=== PATIENT | female | born 1965 | race Hispanic/Latino ===

== ENCOUNTER 2016-09-28 14:55 | Inpatient (IN) | payer MEDICAID ==
--- NOTE | 2016-09-28 15:40 | ED PDOC ---
Arrival/HPI - General Chief Complaint: Anxiety Time Seen by Provider: 09/28/16 15:19 Historian: Patient - History of Present Illness Narrative History of Present Illness (Text): 09/28/16 15:37 51 year old female with a past medical history that includes anxiety presents to the emergency department because she feels anxious and has had decreased sleep due to depression. Denies suicidal ideation or homicidal ideation. Patient is asking to speak with a PES counselor. Time/Duration: < week Symptom Onset: Gradual Symptom Course: Unchanged Modifying Factors (Text): None Associated Symptoms (Text): None Past Medical History - Provider Review Nursing Documentation Reviewed: Yes - Infectious Disease Hx of Infectious Diseases: None - Tetanus Immunization Tetanus Immunization: Unknown - Reproductive Menopause: No - Past Medical History Past Medical History: No Previous - Cardiac Hx Cardiac Disorders: Yes Hx Heart Murmur: Yes Hx Hypertension: Yes - Pulmonary Hx Respiratory Disorders: Yes Hx Pneumonia: Yes Hx Tuberculosis: No - Neurological Hx Neurological Disorder: Yes HX Cerebrovascular Accident: No Hx Seizures: Yes - HEENT Hx HEENT Disorder: No - Renal Hx Renal Disorder: No - Endocrine/Metabolic Hx Endocrine Disorders: No - Hematological/Oncological Hx Blood Disorders: No Hx Cancer: No - Integumentary Hx Dermatological Disorder: No - Musculoskeletal/Rheumatological Hx Falls: Yes - Gastrointestinal Hx Gastrointestinal Disorders: Yes Hx Gastroesophageal Reflux: Yes Other/Comment: Gastroparesis. Gastric ulcer removed - Genitourinary/Gynecological Hx Genitourinary Disorders: No Hx Sexually Transmitted Diseases: No - Psychiatric Hx Psychophysiologic Disorder: Yes Hx Anxiety: Yes Hx Depression: Yes Hx Physical Abuse: No Hx Sexual Abuse: No Hx Substance Use: No - Surgical History Hx Cholecystectomy: Yes Hx Gastric Bypass Surgery: Yes (2013) - Anesthesia Hx Anesthesia: Yes Hx Anesthesia Reactions: No Hx Malignant Hyperthermia: No - Suicidal Assessment Feels Threatened In Home Enviroment: No Family/Social History - Physician Review Nursing Documentation Reviewed: Yes Family/Social History: Unknown Family HX Smoking Status: Former Smoker Hx Alcohol Use: No Hx Substance Use: No Hx Substance Use Treatment: No Allergies/Home Meds Allergies/Adverse Reactions: Allergies Penicillins Allergy (Intermediate, Verified 09/28/16 15:03) HIVES naproxen [From Naprosyn] Allergy (Verified 09/28/16 15:03) NAUSEA compazine Allergy (Intermediate, Uncoded 09/20/16 09:20) muscle stiffening Home Medications: Home Meds Medication Instructions Recorded Confirmed levETIRAcetam [Keppra] 500 mg PO BID 03/11/16 09/28/16 ALPRAZolam [Xanax] 1 mg PO QID 07/15/16 09/28/16 HYDROmorphone [Dilaudid] 2 mg PO Q4 PRN 09/09/16 09/28/16 Acetaminophen/Butalbital/Caf 1 tab PO PRN PRN 09/28/16 09/28/16 [Fioricet] Mirtazapine [Remeron] 30 mg PO HS 09/28/16 09/28/16 QUEtiapine [SEROquel] 25 mg PO BID 09/28/16 09/28/16 Review of Systems - Physician Review All systems were reviewed & negative as marked: Yes Physical Exam - Physical Exam Narrative Physical Exam (Text): - Review of Systems Constitutional: Normal. absent: Fatigue, Weight Change, Fevers Eyes: Normal ENT: Normal Respiratory: Normal absent: SOB, Cough, Sputum Cardiovascular: Normal absent: Chest pain, Palpitations, Syncope Gastrointestinal: Normal absent: Abdominal pain, Diarrhea, Nausea, Vomiting Genitourinary: Normal. absent: Dysuria, Frequency, Hematuria Musculoskeletal: Normal. absent: Arthralgias, Back Pain, Neck Pain Skin: Normal Neurological: Normal absent: Focal Weakness Endocrine: Normal Hemo/Lymphatic: Normal Psychiatric: Anxious, Depressed, Decreased Sleep absent: Suicidal ideation, Homicidal ideation - Physical exam Patient appears age appropriate, speaking full sentences without difficulty - Systems Exam Head: Present: Atraumatic, Normocephalic Pupils: Present: PERRL Extraocular Muscles: Present: EOMI Conjunctiva: Present: Normal Mouth: Present: Moist Mucous Membranes Neck: Present: Normal Range of Motion. No: MIDLINE TENDERNESS, Paraspinal Tenderness Respiratory/Chest: Present: Clear to Auscultation, Good Air Exchange. No: Respiratory Distress, Accessory Muscle Use, Tachypneic Cardiovascular: Present: Regular Rate and Rhythm, Normal S1, S2, Peripheral Pulses Present. No: Murmurs Abdomen: Present: Normal Bowel Sounds, No: Tenderness, Peritoneal Signs, Rebound, Guarding, Distention Back: Present: Normal Inspection. No: Midline Tenderness, Paraspinal Tenderness Upper Extremity: Present: Normal Inspection. No: Cyanosis, Edema Lower Extremity: Present: Normal Inspection. No: Edema Neurological: Present: GCS=15, Speech Normal, cranial nerves II through XII fully intact with no cerebellar abnormality, neuro-sensory fully intact. No focal neurological deficits. Skin: Present: Warm, Dry, Normal Color. No: Rashes Lymphatic: Present: OX3, NI, NC Psychiatric: Present: Alert, Oriented x 3, Normal Insight, Normal Concentration Vital Signs Reviewed: Yes Vital Signs Temp Pulse Resp BP Pulse Ox 09/28/16 17:47 89 18 116/68 99 09/28/16 16:29 98.0 F 96 H 18 118/71 98 09/28/16 14:59 98.2 F 102 H 18 120/75 97 Temperature: Afebrile Blood Pressure: Normal Pulse: Tachycardic Respiratory Rate: Normal Appearance: Positive for: Well-Appearing, Non-Toxic, Comfortable Pain Distress: None Mental Status: Positive for: Alert and Oriented X 3 Medical Decision Making ED Course and Treatment: Impression: 51 year old female with a past medical history that includes anxiety presents to the emergency department because she feels anxious and has had decreased sleep due to depression. On physical exam, patient has no acute findings. Differential Diagnosis include but are not limited to: Anxiety Plan: -- PES evaluation -- EKG, Chest X-ray, Labs -- Reassess and disposition Prior Visits: Notes and results from previous visits were reviewed. Patient last seen in the ED on 09/26/16 for abdominal pain and discharged home. EKG: Ordered, reviewed, and independently interpreted the EKG. Rate : 80 BPM Rhythm : NSR Interpretation : No ST-segment elevations, normal intervals. Interpreted by me. Comparison : No changes from previous EKG. Progress Notes: 09/28/16 20:17 patient in no distress seen and evaluated by Troy from PES, states to admit to behavioral health to Dr. Guerra's service pt aware of and agrees with plan denies suicidal or homicidal ideations - Lab Interpretations Lab Results: 09/28/16 17:35 09/28/16 17:35 Lab Results 09/28/16 17:40: Urine Opiates Screen Negative, Urine Methadone Screen Negative, Ur Barbiturates Screen Positive H, Ur Phencyclidine Scrn Negative, Ur Amphetamines Screen Negative, U Benzodiazepines Scrn Positive H, U Oth Cocaine Metabols Negative, U Cannabinoids Screen Negative 09/28/16 17:35: WBC 5.6 D, RBC 3.51, Hgb 9.4 L, Hct 29.4 L, MCV 83.8, MCH 26.8 , MCHC 32.0, RDW 17.0 H, Plt Count 271, MPV 9.8, Gran % 42.4 L, Lymph % (Auto) 48.4 H, [place] % (Auto) 5.0, Eos % (Auto) 3.8, Baso % (Auto) 0.4, Gran # 2.37, Lymph # 2.7, [place] # 0.3, Eos # 0.2, Baso # 0.02, Sodium 142, Potassium 4.3, Chloride 109 H, Carbon Dioxide 25, Anion Gap 12, BUN 21, Creatinine 1.0, Est GFR ( Amer) > 60, Est GFR (Non-Af Amer) 58, Random Glucose 92, Calcium 9.3, Total Bilirubin 0.3, AST 20, ALT 16, Alkaline Phosphatase 66, Total Protein 6.6, Albumin 3.7, Globulin 2.9, Albumin/Globulin Ratio 1.3, Salicylates 6, Acetaminophen < 10.0 L, Alcohol, Quantitative < 10 09/28/16 16:07: Urine Color Yellow, Urine Appearance Cloudy, Urine pH 6.0, Ur Specific [place] 1.010, Urine Protein Negative, Urine Glucose (UA) Negative, Urine Ketones Negative, Urine Blood Negative, Urine Nitrate Negative, Urine Bilirubin Negative, Urine Urobilinogen 0.2, Ur Leukocyte Esterase Moderate H, Urine RBC 0 - 2, Urine WBC 2 - 5, Ur Epithelial Cells 1 - 3, Urine Bacteria Occ - RAD Interpretation Radiology Orders: 09/28/16 15:36 CHEST PORTABLE [RAD] Stat - EKG Interpretation Interpreted by ED Physician: Yes Type: 12 lead EKG - Scribe Statement The provider has reviewed the documentation as recorded by the Jose Antonio Hawley Provider Scribe Attestation: All medical record entries made by the Virgieibcal were at my direction and personally dictated by me. I have reviewed the chart and agree that the record accurately reflects my personal performance of the history, physical exam, medical decision making, and the department course for this patient. I have also personally directed, reviewed, and agree with the discharge instructions and disposition. Disposition/Present on Arrival - Present on Arrival Any Indicators Present on Arrival: No History of DVT/PE: Yes History of Uncontrolled Diabetes: No Urinary Catheter: No History of Decub. Ulcer: No History Surgical Site Infection Following: None - Disposition Have Diagnosis and Disposition been Completed?: Yes Diagnosis: Anxiety Disposition: HOSPITALIZED Disposition Time: 20:19 Patient Plan: Admission Patient Problems: Current Active Problems Problem Status Diagnosed Colitis Acute Elevated LFTs Acute Ileus Acute Condition: STABLE
[2016-09-28 16:14] LABS: URINE BILIRUBIN NEGATIVE (NEGATIVE); URINE BLOOD NEGATIVE (NEGATIVE); URINE GLUCOSE (UA) NEGATIVE (NEGATIVE); URINE KETONE NEGATIVE (NEGATIVE); URINE LEUKOCYTE ESTERASE MODERATE Leu/uL (NEGATIVE); URINE PROTEIN NEGATIVE mg/dL (<30 mg/dL); URINE UROBILINOGEN 0.2 E.U./dL (<1 E.U./dL)
[2016-09-28 16:16] LABS: URINE APPEARANCE CLOUDY (CLEAR); URINE COLOR YELLOW (YELLOW)
[2016-09-28 16:47] LABS: URINE RBC 0 - 2 /hpf (0-2)
[2016-09-28 16:48] LABS: URINE BACTERIA OCC (NEG)
[2016-09-28 17:46] LABS: ADD MANUAL DIFF? NO
[2016-09-28 17:49] VITALS: BMI 22.1
[2016-09-28 17:51] LABS: BASO # 0.02 K/mm3 (0.0-2.0); BASO % 0.4 % (0.0-3.0); EOS # 0.2 (0.0-0.7); EOS % 3.8 % (1.5-5.0); GRAN # 2.37 (1.4-6.5); GRAN % 42.4 % (50.0-68.0); HEMATOCRIT 29.4 % (36.0-48.0); LYMPH # 2.7 (1.2-3.4); LYMPH % 48.4 % (22.0-35.0); MEAN CELL VOLUME 83.8 fL (80.0-105.0); MEAN CORPUSCULAR HEMOGLOBIN 26.8 pg (25.0-35.0); MEAN PLATELET VOLUME 9.8 fl (7.0-11.0); MONO # 0.3 (0.1-0.6); PLATELET COUNT 271 10^3/uL (120.0-450.0); WHITE BLOOD COUNT 5.6 10^3/ul (4.5-11.0)
[2016-09-28 18:02] LABS: ALB/GLOB RATIO 1.3 (1.1-1.8); ALKALINE PHOSPHATASE 66 U/L (38-133); ALT/SGPT 16 U/L (7-56); AST/SGOT 20 U/L (15-39); BILIRUBIN,TOTAL 0.3 mg/dL (0.2-1.3); BLOOD UREA NITROGEN 21 mg/dL (7-21); CALCIUM 9.3 mg/dL (8.4-10.5); CARBON DIOXIDE 25 mmol/L (21-33); CHLORIDE 109 mmol/L (98-107); GFR AFRICAN-AMERICAN > 60; GLUCOSE,RANDOM 92 mg/dL (70-110); POTASSIUM 4.3 mmol/L (3.6-5.0); SODIUM 142 mmol/L (132-148); TOTAL PROTEIN 6.6 g/dL (5.8-8.3)
[2016-09-28 21:43] VITALS: O2SAT 99
[2016-09-28] MEDS ORDERED: Magnesium Hydroxide Susp 30 ml UD PO PRN (22:34)
[2016-09-28] MEDS ORDERED: Alum-Mag Hydrox-Simethicone Susp (30 mL) PO PRN (22:34)
[2016-09-28] MEDS ORDERED: Oxycodone/Acetaminophen 5/325 mg Tab PO ONE (22:34)
[2016-09-29 06:55] LABS: CHOLESTEROL 188 mg/dL (130-200); GLUCOSE,FASTING 98 mg/dL (65-110)
--- NOTE | 2016-09-29 07:36 | RAD ---
PROCEDURE: Chest portable HISTORY: med clearence COMPARISON: 09/20/2016. TECHNIQUE: Technique: Single view portable semi erect @ 16:30. FINDINGS: No active pulmonary disease. No pulmonary nodules, masses or infiltrates. No evidence of acute, significant cardiovascular disease. No significant pleural, osseous or subdiaphragmatic abnormalities. Stable thoracolumbar scoliosis IMPRESSION: No active disease. No acute/significant interval changes.
--- NOTE | 2016-09-29 12:09 | CARD ---
APPROVED REPORT EKG Measurement Heart [id number] <Conclusion> Normal sinus rhythm with short [place]. No change
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
[2016-09-29] MEDS ORDERED: Apap-Butalbital-Caffeine 325-50-40mg Tab PO PRN (13:54)
[2016-09-29] MEDS: Apap-Butalbital-Caffeine 325-50-40mg Tab PO PRN ×2 (14:24→21:01)
--- NOTE | 2016-09-29 15:21 | CP.PCM.HP ---
<Jose Fowler - Last Filed: 09/29/16 15:27> History of Present Illness - History of Present Illness History of Present Illness: 51 y/o F with PMH of seizures, chronic back pain, anxiety, depression, GERD, migraines, PUD, and DVT presents to the hospital on 09/28/16 for anxiety and depression. Pt stated she was not feeling well and has been stressed out at home. She reports having a difficult time dealing with her daughter at home. She states her family members are also providing stress to her by saying things they know will upset her. Pt also mentions that she has chronic back pain and has not had pain medication for the past 2 weeks as she has run out. Pt sees Dr. Soriano for pain management and PMD Dr. Buckner. Pt takes percocet at home for back pain and fioricet for headaches. Pt was recently in the admitted to the hospital for intractable vomiting and discharged on 09/22/16. Pt admits to having 2 bowel movements per day. Pt denies CP, SOB, N/V/D, fevers, chills. PMH: seizures, chronic back pain, anxiety, depression, GERD, migraines, PUD, and DVT Surgical Hx: Vagotomy, meniscus repair Social Hx: Denies alcohol, tobacco, or illicit drug use Allergies: Penicillin, naproxen Medications: See MAR Present on Admission - Present on Admission Any Indicators Present on Admission: No Review of Systems - Review of Systems Review of Systems: As per HPI. Past Patient History - Infectious Disease Hx of Infectious Diseases: None - Tetanus Immunizations Tetanus Immunization: Unknown - Past Medical History & Family History Past Medical History?: Yes - Past Social History Smoking Status: Former Smoker - CARDIAC Hx Cardiac Disorders: Yes Hx Heart Murmur: Yes Hx Hypertension: Yes - PULMONARY Hx Respiratory Disorders: Yes Hx Pneumonia: Yes Hx Tuberculosis: No - NEUROLOGICAL Hx Neurological Disorder: Yes HX Cerebrovascular Accident: No Hx Seizures: Yes - HEENT Hx HEENT Problems: No - RENAL Hx Chronic Kidney Disease: No - ENDOCRINE/METABOLIC Hx Endocrine Disorders: No - HEMATOLOGICAL/ONCOLOGICAL Hx Blood Disorders: No Hx Cancer: No - INTEGUMENTARY Hx Dermatological Problems: No - MUSCULOSKELETAL/RHEUMATOLOGICAL Hx Falls: Yes - GASTROINTESTINAL Hx Gastrointestinal Disorders: Yes Hx Gastroesophageal Reflux: Yes Other/Comment: Gastroparesis. Gastric ulcer removed - GENITOURINARY/GYNECOLOGICAL Hx Genitourinary Disorders: No Hx Sexually Transmitted Disorders: No - PSYCHIATRIC Hx Psychophysiologic Disorder: Yes Hx Anxiety: Yes Hx Depression: Yes Hx Physical Abuse: No Hx Sexual Abuse: No Hx Substance Use: No - SURGICAL HISTORY Hx Cholecystectomy: Yes Hx Gastric Bypass Surgery: Yes (2013) - ANESTHESIA Hx Anesthesia: Yes Hx Anesthesia Reactions: No Hx Malignant Hyperthermia: No Meds Allergies/Adverse Reactions: Allergies Allergy/AdvReac Type Severity Reaction Status Date / Time Penicillins Allergy Intermediate HIVES Verified 09/29/16 00:08 naproxen [From Naprosyn] Allergy NAUSEA Verified 09/29/16 00:08 compazine Allergy Intermediate muscle Uncoded 09/29/16 00:08 stiffening Physical Exam - Constitutional Appears: Well, No Acute Distress - Head Exam Head Exam: ATRAUMATIC, NORMAL INSPECTION, NORMOCEPHALIC - Eye Exam Eye Exam: EOMI, Normal appearance, PERRL - ENT Exam ENT Exam: Mucous Membranes Moist, Normal Exam - Neck Exam Neck exam: Positive for: Normal Inspection. Negative for: Lymphadenopathy - Respiratory Exam Respiratory Exam: Clear to Auscultation Bilateral, NORMAL BREATHING PATTERN. absent: Rhonchi, Wheezes - Cardiovascular Exam Cardiovascular Exam: RRR, +S1, +S2 - GI/Abdominal Exam GI & Abdominal Exam: Normal Bowel Sounds, Soft. absent: Tenderness - Extremities Exam Extremities exam: Positive for: normal inspection. Negative for: calf tenderness, pedal edema - Neurological Exam Neurological exam: Alert, CN II-XII Intact, Oriented x3 - Psychiatric Exam Psychiatric exam: Normal Affect, Normal Mood - Skin Skin Exam: Intact, Normal Color, Warm Results - Vital Signs Recent Vital Signs: Last Vital Signs Temp 97.9 F 09/29/16 09:59 Pulse 79 09/29/16 09:59 Resp 20 09/29/16 09:59 BP 111/60 09/29/16 09:59 Pulse Ox 99 09/28/16 22:42 - Labs Result Diagrams: 09/28/16 17:35 09/28/16 17:35 Labs: Laboratory Results - last 24 hr 09/29/16 05:30 Fasting Glucose 98 Triglycerides 187 H Cholesterol 188 LDL Cholesterol Direct 72 HDL Cholesterol 78 H TSH 3rd Generation 0.86 Assessment & Plan - Assessment and Plan (Free Text) Plan: 51 y/o F with PMH of seizures, chronic back pain, anxiety, depression, GERD, migraines, PUD, and DVT presents to the hospital on 09/28/16 for anxiety and depression. Pt admitted to psychiatry unit for anxiety and depression. Pt will continue to stay in the psychiatry for further care. Medically, patient does not have any abdominal pain or intractable pain that she was recently admitted for. Pt does complain of chronic headaches and abdominal pain in which she takes fioricet and percocet. These medications will be added to patients current medical regimen. UA showed moderate leukocyte esterase. Will await urine culture before starting abx as pt is asymptomatic. 1. Anxiety/Depression - As per psychiatry - Continue current medical regimen 2. Chronic back pain - Percocet added - Continue milk of magnesia for constipation, likely secondary to chronic percocet use. 3. Headaches - Fioricet added - Tylenol PRN 4. GERD/PUD - Protonix added 5. Seizure disorder - Continue Keppra 6. Possible UTI - Follow cultures Seen, reviewed, and discussed with attending. Janeth, PGY-1 <Darrell Gatica - Last Filed: 09/29/16 22:46> Results - Vital Signs Recent Vital Signs: Last Vital Signs Temp 97.9 F 09/29/16 09:59 Pulse 89 09/29/16 16:00 Resp 20 09/29/16 09:59 BP 123/89 09/29/16 16:00 Pulse Ox 99 09/28/16 22:42 - Labs Result Diagrams: 09/28/16 17:35 09/28/16 17:35 Labs: Laboratory Results - last 24 hr 09/29/16 09/29/16 05:30 07:43 Fasting Glucose 98 Triglycerides 187 H Cholesterol 188 LDL Cholesterol Direct 72 HDL Cholesterol 78 H TSH 3rd Generation 0.86 RPR Nonreactive Attending/Attestation - Attestation I have personally seen and examined this patient.: Yes I have fully participated in the care of the patient.: Yes I have reviewed all pertinent clinical information: Yes Notes (Text): 09/29/16 22:36 51 year old female with multiple medical problems including anxiety, depression , gastroparesis and reported back pain on chronic opiates who presented with anxiety and depression. Medical consultation was requested for medical evaluation. Patient's pmd is Dr. Buckner. I called his service but was not able to get in touch with pmd or fruit grader operator. Patient seen and examined in the psychiatric [facility]. She appears comfortable ambulating in the hallways. She is concerned about getting fioricet for her migraines and percocet for her chronic back pain. She reports she gets percocet from her pain management physician Dr. Soriano. When she ran out she was unable to make follow up appointment because of personal problems at home. Since then she reports she was admitted twice in hospital for abdominal pain / constipation / gastroparesis. She also reports being seen in the ER several times since as well. At this time will resume her fioricet as prescribed by her pmd. Percocet prn is ordered however at same time patient is counselled on limited narcotic use. Continue with MOM or miralax prn for constipation. Management for anxiety/depression as per psychiatry. +UA noted however Ucx is negative and patient is asymptomatic. Can monitor off abx. We will sign off at this time. Please re-consult as needed. Please should follow up closely with pmd and pain management doctor after discharge. Darrell Gatica MD Hospitalist.
[2016-09-29] MEDS: Oxycodone/Acetaminophen 5/325 mg Tab PO PRN (16:46)
[2016-09-30] MEDS: Oxycodone/Acetaminophen 5/325 mg Tab PO PRN ×2 (09:25→17:53)
[2016-09-30] MEDS: Apap-Butalbital-Caffeine 325-50-40mg Tab PO PRN ×3 (09:27→21:08)
--- NOTE | 2016-09-30 12:28 | PCM.PYCHPN ---
Psychiatric Progress Note - Psychiatric Progress Note Patient seen today, length of contact: 30 minutes Patient Chief Complaint: "I lept well, and it is achievement" Problems Identified/Issues Discussed: Suicide/ homicide prevention, past psychiatric h/o, current psychiatric symptoms , medical problems, risk/benefits and alternatives of medications, medications compliance, coping strategies, substance abuse h/o, relapse prevention, importance of follow up with psychiatrist and therapist, discharge plan. Medical Problems: seizures, chronic back pain, anxiety, depression, GERD, migraines, PUD, and DVT Vagotomy, meniscus repair Diagnostic Results: 09/28/16 17:35 09/28/16 17:35 Lab Results 09/29/16 07:43: RPR Nonreactive 09/29/16 05:30: Fasting Glucose 98, Triglycerides 187 H, Cholesterol 188, LDL Cholesterol Direct 72, HDL Cholesterol 78 H, TSH 3rd Generation 0.86 09/28/16 17:40: Urine Opiates Screen Negative, Urine Methadone Screen Negative, Ur Barbiturates Screen Positive H, Ur Phencyclidine Scrn Negative, Ur Amphetamines Screen Negative, U Benzodiazepines Scrn Positive H, U Oth Cocaine Metabols Negative, U Cannabinoids Screen Negative 09/28/16 17:35: WBC 5.6 D, RBC 3.51, Hgb 9.4 L, Hct 29.4 L, MCV 83.8, MCH 26.8 , MCHC 32.0, RDW 17.0 H, Plt Count 271, MPV 9.8, Gran % 42.4 L, Lymph % (Auto) 48.4 H, Williamson % (Auto) 5.0, Eos % (Auto) 3.8, Baso % (Auto) 0.4, Gran # 2.37, Lymph # 2.7, Williamson # 0.3, Eos # 0.2, Baso # 0.02, Sodium 142, Potassium 4.3, Chloride 109 H, Carbon Dioxide 25, Anion Gap 12, BUN 21, Creatinine 1.0, Est GFR ( Amer) > 60, Est GFR (Non-Af Amer) 58, Random Glucose 92, Calcium 9.3, Total Bilirubin 0.3, AST 20, ALT 16, Alkaline Phosphatase 66, Total Protein 6.6, Albumin 3.7, Globulin 2.9, Albumin/Globulin Ratio 1.3, Salicylates 6, Acetaminophen < 10.0 L, Alcohol, Quantitative < 10 09/28/16 16:07: Urine Color Yellow, Urine Appearance Cloudy, Urine pH 6.0, Ur Specific [place] 1.010, Urine Protein Negative, Urine Glucose (UA) Negative, Urine Ketones Negative, Urine Blood Negative, Urine Nitrate Negative, Urine Bilirubin Negative, Urine Urobilinogen 0.2, Ur Leukocyte Esterase Moderate H, Urine RBC 0 - 2, Urine WBC 2 - 5, Ur Epithelial Cells 1 - 3, Urine Bacteria Occ Vital Signs Temp Pulse Resp BP Pulse Ox 09/30/16 06:00 98.6 F 66 20 127/84 09/29/16 16:00 89 123/89 09/29/16 09:59 97.9 F 79 20 111/60 09/28/16 22:42 98.0 F 109 H 20 118/84 99 09/28/16 21:42 98 F 76 19 130/75 99 09/28/16 20:46 104 H 18 144/78 98 09/28/16 17:47 89 18 116/68 99 09/28/16 16:29 98.0 F 96 H 18 118/71 98 09/28/16 14:59 98.2 F 102 H 18 120/75 97 DSM 5 Symptoms Update: shortly patient is 51 yo Female, self reported h/o anxiety and depression, no previous psychiatric admissions, multiple medical problems, chronic back pain, pt was seen last week on the medical floor, this publications writer offered admission, but pt needed to be d/c because of the family issues, pt came back to the ED looking for admission because pt was depressed, anxious, was not able to function, not sleeping, racing thoughts, pt also does not have outpatient psychiatrist, needs medications to be adjusted. Pt was seen today with treatment team. Patient presented to have good personal hygiene, good ADLs. Patient reported that she slept better and "it is achievement", patient reported that at present moment she feels depressed and she was asking about Effexor and when it will be started, when this publications writer explained patient that she is on Paxil tapering dose patient said that she was not compliant with the Paxil at home. This publications writer would like to emphasize the fact that patient said that she was compliant with that medication. Patient apologized 'I should have tell you about this" and she wants to discontinue Paxil and start Effexor as soon as possible. Which will be done today. patient educated in future references she needs to let this publications writer know about compliance of the medications , because increased dose of medication potentially could give side effects. Patient verbalized understanding. Patient reported that she feels depressed and hopeless, patient reported thather anxiety is very bad patient reported that she needs to be on benzodiazepines because if she feels anxious she cannot eat. patient denied hearing voices denied seeing things. Patient does not present to be psychotic. Patient tolerates medications well, no side effects observed or reported, aims 0 , no EPS. As per nursing staff patient is compliant with the medication but patient has medication medication seeking behavior, no agitation or aggression no behavioral issues. DSM 5 Diagnosis: rule out major depressive disorder r/o bipolar spectrum disorder r/o ADIS r/o PTSD r/o mood disorder and anxiety disorder due to C r/o addiction to pain meds and benzodiazepines Medication Change: Yes (Effexor started, Klonopin increased) Medical Record Reviewed: Yes Consults ordered or reviewed: edical consult appreciated Neurology consult will be called, patient has history of seizure disorder patient is on Keppra, will ask advice to change Keppra for Depakote Mental Status Examination - Cognitive Function Orientation: Person, Place, Situation, Time Memory: Intact Attention: Poor Concentration: Poor Association: WNL Fund of Knowledge: WNL - Mood Mood: Depressed, Anxious - Affect Affect: Flat - Speech Speech: Appropriate - Formal Thought Process Formal Thought Process: No Impairment, Hallucinations (denied today) - Suicidal Ideation Suicidal Ideation: No - Homicidal Ideation Homicidal Ideation: No Goal/Treatment Plan - Goal/Treatment Plan Need for Continued Stay: Remain at risks for inpatient hospitalization, Severe depression anxiety, Discharge may exacerbated symptoms, Severe functional impairment Progress Toward Problem(s) and Goals/Treatment Plan: Milieu/structure/supportive therapy will continue levETIRAcetam for now will call neurology consult in order to ask advise about depakote as a mood stabilizer patient is on Keppra at times it could give hostility and irritability. pt also has h/o headaches Depakote could be a good choice for migraine headache prophylaxis ALPRAZolam will be d/c, addictive potential (pt was on 1mg po qid) klonopin 1.5mg po tid for anxiety for now paxil will be discontinued Pain medication as per medical team Effexor will be started 75 mg twice a day for now Remeron was increased to 45mg po hs for MDD seroquel will be given 50mg hs (pt was on 25mg po bid) as a mood stabilization SW evaluation Family involvement will monitor closely Medical team consultation Estimated Date of D/C: 10/05/16 (we'll monitor closely)
--- NOTE | 2016-09-30 19:24 | CON ---
DATE: 09/30/2016 HISTORY OF PRESENT ILLNESS: This is a 51-year-old female with past medical history of anxiety, depre ssion, migraine headaches, seizure. The patient has been stressed out at home and came to the hospit or for further workup. PAST MEDICAL HISTORY: Seizure, chronic back pain, anxiety, depression, GERD and migraines. SOCIAL HISTORY: Does not smoke. Does not drink. ALLERGIES: PENICILLIN AND NAPROXEN. PHYSICAL EXAMINATION: HEENT: Normocephalic, atraumatic. NECK: Supple. NEUROLOGIC: Awake, alert, oriented x 3. No aphasia. Cranial nerves II through XII were tested. Pu pils reactive. EOM intact. Visual flor full. No facial asymmetry. Tongue midline. Spontaneous movement of the extremities noted. Deep tendon reflexes 1+. Both plantars are downgoing. Sensory a ppears intact. Cerebellar, gait was normal. IMPRESSION: Multiple medical problems, presented with a headache, migraine type. PLAN: The patient is on Fioricet. CAT scan of the head. We will do further management after the res ults of above tests. Maldonado Montes MD cc: [id number] TT: 09/30/2016 19:23:50 Confirmation # [id number] Dictation # [id number] brisa
[2016-10-01] MEDS: Oxycodone/Acetaminophen 5/325 mg Tab PO PRN ×2 (03:51→12:46)
[2016-10-01] MEDS: Apap-Butalbital-Caffeine 325-50-40mg Tab PO PRN ×4 (03:51→21:05)
--- NOTE | 2016-10-01 17:40 | PCM.PYCHPN ---
Psychiatric Progress Note - Psychiatric Progress Note Patient seen today, length of contact: 30 minutes Patient Chief Complaint: "I am still anxious, I am worried about my daughter, my family" Problems Identified/Issues Discussed: Suicide/ homicide prevention, past psychiatric h/o, current psychiatric symptoms , medical problems, risk/benefits and alternatives of medications, medications compliance, coping strategies, substance abuse h/o, relapse prevention, importance of follow up with psychiatrist and therapist, discharge plan. Medical Problems: seizures, chronic back pain, anxiety, depression, GERD, migraines, PUD, and DVT Vagotomy, meniscus repair Diagnostic Results: 09/28/16 17:35 09/28/16 17:35 Lab Results 09/29/16 07:43: RPR Nonreactive 09/29/16 05:30: Fasting Glucose 98, Triglycerides 187 H, Cholesterol 188, LDL Cholesterol Direct 72, HDL Cholesterol 78 H, TSH 3rd Generation 0.86 09/28/16 17:40: Urine Opiates Screen Negative, Urine Methadone Screen Negative, Ur Barbiturates Screen Positive H, Ur Phencyclidine Scrn Negative, Ur Amphetamines Screen Negative, U Benzodiazepines Scrn Positive H, U Oth Cocaine Metabols Negative, U Cannabinoids Screen Negative 09/28/16 17:35: WBC 5.6 D, RBC 3.51, Hgb 9.4 L, Hct 29.4 L, MCV 83.8, MCH 26.8 , MCHC 32.0, RDW 17.0 H, Plt Count 271, MPV 9.8, Gran % 42.4 L, Lymph % (Auto) 48.4 H, Pratt % (Auto) 5.0, Eos % (Auto) 3.8, Baso % (Auto) 0.4, Gran # 2.37, Lymph # 2.7, Pratt # 0.3, Eos # 0.2, Baso # 0.02, Sodium 142, Potassium 4.3, Chloride 109 H, Carbon Dioxide 25, Anion Gap 12, BUN 21, Creatinine 1.0, Est GFR ( Amer) > 60, Est GFR (Non-Af Amer) 58, Random Glucose 92, Calcium 9.3, Total Bilirubin 0.3, AST 20, ALT 16, Alkaline Phosphatase 66, Total Protein 6.6, Albumin 3.7, Globulin 2.9, Albumin/Globulin Ratio 1.3, Salicylates 6, Acetaminophen < 10.0 L, Alcohol, Quantitative < 10 09/28/16 16:07: Urine Color Yellow, Urine Appearance Cloudy, Urine pH 6.0, Ur Specific [place] 1.010, Urine Protein Negative, Urine Glucose (UA) Negative, Urine Ketones Negative, Urine Blood Negative, Urine Nitrate Negative, Urine Bilirubin Negative, Urine Urobilinogen 0.2, Ur Leukocyte Esterase Moderate H, Urine RBC 0 - 2, Urine WBC 2 - 5, Ur Epithelial Cells 1 - 3, Urine Bacteria Occ Vital Signs Temp Pulse Resp BP Pulse Ox 09/30/16 06:00 98.6 F 66 20 127/84 09/29/16 16:00 89 123/89 09/29/16 09:59 97.9 F 79 20 111/60 09/28/16 22:42 98.0 F 109 H 20 118/84 99 09/28/16 21:42 98 F 76 19 130/75 99 09/28/16 20:46 104 H 18 144/78 98 09/28/16 17:47 89 18 116/68 99 09/28/16 16:29 98.0 F 96 H 18 118/71 98 09/28/16 14:59 98.2 F 102 H 18 120/75 97 DSM 5 Symptoms Update: shortly patient is 51 yo Female, self reported h/o anxiety and depression, no previous psychiatric admissions, multiple medical problems, chronic back pain, pt was seen last week on the medical floor, this magazine writer offered admission, but pt needed to be d/c because of the family issues, pt came back to the ED looking for admission because pt was depressed, anxious, was not able to function, not sleeping, racing thoughts, pt also does not have outpatient psychiatrist, needs medications to be adjusted. Pt was seen today with treatment team. Patient presented to have good personal hygiene, good ADLs. Patient reported that she slept better at the same time patient reported to feel anxious, and her anxiety is related to the problems at home. Patient reported that her daughter younger one has a lot of legal problems and she was mandated to go to the program. Substance abusers. Patient said that she feels anxious about her family, about her mother, she is anxious because "my brother always blaming me for everything". Patient reported that she feels depressed and hopeless. patient denied hearing voices denied seeing things. Patient does not present to be psychotic. Patient tolerates medications well, no side effects observed or reported, aims 0 , no EPS. As per nursing staff patient is compliant with the medication but patient has medication seeking behavior, no agitation or aggression no behavioral issues. DSM 5 Diagnosis: rule out major depressive disorder r/o bipolar spectrum disorder r/o ADIS r/o PTSD r/o mood disorder and anxiety disorder due to [facility] Medication Change: Yes (effexor increased, klonopin increased) Medical Record Reviewed: Yes Consults ordered or reviewed: edical consult appreciated Neurology consult will be called, patient has history of seizure disorder patient is on Keppra, will ask advice to change Keppra for Depakote Mental Status Examination - Cognitive Function Orientation: Person, Place, Situation, Time Memory: Intact Attention: Poor (somewhat better) Concentration: Poor Association: WNL Fund of Knowledge: WNL - Mood Mood: Depressed (somewhat better), Anxious - Affect Affect: Flat - Speech Speech: Appropriate - Formal Thought Process Formal Thought Process: No Impairment - Suicidal Ideation Suicidal Ideation: No - Homicidal Ideation Homicidal Ideation: No Goal/Treatment Plan - Goal/Treatment Plan Need for Continued Stay: Remain at risks for inpatient hospitalization, Severe depression anxiety, Discharge may exacerbated symptoms, Severe functional impairment Progress Toward Problem(s) and Goals/Treatment Plan: Milieu/structure/supportive therapy will continue levETIRAcetam for now neurology consult appreciated, CT of the head ordered, in order to ask advise about depakote as a mood stabilizer patient is on Keppra at times it could give hostility and irritability. pt also has h/o headaches Depakote could be a good choice for migraine headache prophylaxis klonopin 2mg po tid for anxiety for now Pain medication as per medical team Effexor ER 150mg po daily for depression and anxiety for now Remeron 45mg po hs for MDD seroquel 50mg hs (pt was on 25mg po bid) as a mood stabilization SW evaluation Family involvement will monitor closely Medical team consultation Estimated Date of D/C: 10/05/16 (we'll monitor closely)
--- NOTE | 2016-10-01 19:22 | CP.PCM.PN ---
Subjective - Date & Time of Evaluation Date of Evaluation: 10/01/16 Time of Evaluation: 19:19 - Subjective Subjective: PGY-[address] Shook [facility] 7:15pm pt was seen laying on the floor with head on her roommate's lap. Pt states that she had radiating pain from R hip to leg, which is chronic, 8/10 sharp. After dinner, she ambulates to RN to request pain meds. She ambulate to the hallway in front of the nursing stating. Her R leg "gave out" and fell onto the floor with R hip landing first. Her pain aggravated to 10/10. No shaking, no dizziness , no palpitation, B&B incontinent. PMH: seizures, chronic back pain, scoliosis, anxiety, depression, GERD, migraines, PUD, and DVT Surgical Hx: Vagotomy, meniscus repair Social Hx: Denies alcohol, tobacco, or illicit drug use Allergies: Penicillin, naproxen T 97.3 P 88 R 18 BP 105/65 O2 99 RA Blood sugar 104 Objective - Vital Signs/Intake and Output Vital Signs (last 24 hours): Temp Pulse Resp BP Pulse Ox 98.6 F 87 20 114/76 99 09/30/16 06:00 10/01/16 16:00 09/30/16 06:00 10/01/16 16:00 09/28/16 22:42 - Medications Medications: Current Medications Acetaminophen (Tylenol 325mg Tab) 650 mg PO Q4H PRN PRN Reason: Pain, moderate (4-7) Last Admin: 10/01/16 18:25 Dose: 650 mg Acetaminophen/Butalbital/Caffeine (Fioricet) 1 tab PO Q6H PRN PRN Reason: Headache Last Admin: 10/01/16 16:04 Dose: 1 tab Al Hydrox/Mg Hydrox/Simethicone (Maalox Plus 30 Ml) 30 ml PO DAILY PRN PRN Reason: Indigestion / Heartburn Clonazepam (Klonopin) 2 mg PO [facility]HS [facility] PRN Reason: Protocol Clonazepam (Klonopin) 2 mg PO 1600 [facility] PRN Reason: Protocol Last Admin: 10/01/16 16:01 Dose: 2 mg Hydroxyzine Pamoate (Vistaril) 50 mg PO Q8 PRN; Protocol PRN Reason: Anxiety Last Admin: 10/01/16 18:31 Dose: 50 mg Levetiracetam (Keppra) 500 mg PO BID [facility] Last Admin: 10/01/16 16:02 Dose: 500 mg Magnesium Hydroxide (Milk Of Magnesia) 30 ml PO DAILY PRN PRN Reason: Constipation Mirtazapine (Remeron) 45 mg PO HS [facility] Last Admin: 09/30/16 21:08 Dose: 45 mg Oxycodone/Acetaminophen (Percocet 5/325 Mg Tab) 1 tab PO Q8H PRN PRN Reason: Pain, severe (8-10) Stop: 10/02/16 14:04 Last Admin: 10/01/16 12:46 Dose: 1 tab Quetiapine Fumarate (Seroquel) 50 mg PO [facility] PRN Reason: Protocol Last Admin: 09/30/16 21:09 Dose: 50 mg Venlafaxine HCl (Effexor Xr) 150 mg PO DAILY [facility] - Constitutional Appears: No Acute Distress, Other (Pt appears lying on the floor comfortably) - Head Exam Head Exam: ATRAUMATIC, NORMOCEPHALIC - Eye Exam Eye Exam: EOMI, Normal appearance, PERRL - ENT Exam ENT Exam: Mucous Membranes Moist - Cardiovascular Exam Cardiovascular Exam: REGULAR RHYTHM, +S1, +S2. absent: Murmur - GI/Abdominal Exam GI & Abdominal Exam: Soft, Normal Bowel Sounds. absent: Guarding, Rigid, Tenderness - Extremities Exam Extremities Exam: absent: Calf Tenderness - Back Exam Back Exam: absent: CVA tenderness (L), CVA tenderness (R), vertebral tenderness Additional comments: Pt able to stand and bear weight on both feet. No new complaints. - Neurological Exam Neurological Exam: Alert, Awake, Oriented x3 Neuro motor strength exam: Left Upper Extremity: 5, Right Upper Extremity: 5, Left Lower Extremity: 5, Right Lower Extremity: 5 - Psychiatric Exam Psychiatric exam: Normal Affect - Skin Skin Exam: Dry, Warm Additional comments: No bleeding. No ecchymosis. No joint edema Assessment and Plan - Assessment and Plan (Free Text) Plan: A/P Unwitnessed fall, in front of nursing station, due to weakness from chronic sciatica. Pt is able to stand and bear weight on both feet. Pt requested increase of percocet from 5 to 10. Will follow up with Pain manangement doctor, Bo Pinedo, outpatient. No new pain. Percocet 10 stat Percocet 10 in AM Defer to AM team to confirm her medication S/D/R/w Dr. Shook
[2016-10-01] MEDS ORDERED: Oxycodone/Acetaminophen 10/325 mg Tab PO STA (19:49)
[2016-10-01] MEDS ORDERED: oxyCODONE 10 mg Immediate Release Tab PO STA ×2 (20:37→20:41)
[2016-10-02] MEDS: Apap-Butalbital-Caffeine 325-50-40mg Tab PO PRN ×3 (03:06→20:49)
[2016-10-02] MEDS ORDERED: oxyCODONE 10 mg Immediate Release Tab PO ONE (07:00)
[2016-10-02] MEDS ORDERED: Oxycodone/Acetaminophen 10/325 mg Tab PO ONE (07:00)
[2016-10-02 07:32] VITALS: RESP 20
[2016-10-02] MEDS ORDERED: Venlafaxine 75 mg ER Cap PO SCH ×2 (08:00)
[2016-10-02] MEDS: Venlafaxine 75 mg ER Cap PO SCH (08:23)
[2016-10-02] MEDS: Oxycodone/Acetaminophen 5/325 mg Tab PO PRN ×3 (11:50→23:56)
--- NOTE | 2016-10-02 15:59 | PCM.PYCHPN ---
Psychiatric Progress Note - Psychiatric Progress Note Patient seen today, length of contact: 30 minutes Patient Chief Complaint: "I am in excruciating pain in my back". Problems Identified/Issues Discussed: Suicide/ homicide prevention, past psychiatric h/o, current psychiatric symptoms , medical problems, risk/benefits and alternatives of medications, medications compliance, coping strategies, substance abuse h/o, relapse prevention, importance of follow up with psychiatrist and therapist, discharge plan. Medical Problems: seizures, chronic back pain, anxiety, depression, GERD, migraines, PUD, and DVT Vagotomy, meniscus repair Diagnostic Results: 09/28/16 17:35 09/28/16 17:35 Lab Results 09/29/16 07:43: RPR Nonreactive 09/29/16 05:30: Fasting Glucose 98, Triglycerides 187 H, Cholesterol 188, LDL Cholesterol Direct 72, HDL Cholesterol 78 H, TSH 3rd Generation 0.86 09/28/16 17:40: Urine Opiates Screen Negative, Urine Methadone Screen Negative, Ur Barbiturates Screen Positive H, Ur Phencyclidine Scrn Negative, Ur Amphetamines Screen Negative, U Benzodiazepines Scrn Positive H, U Oth Cocaine Metabols Negative, U Cannabinoids Screen Negative 09/28/16 17:35: WBC 5.6 D, RBC 3.51, Hgb 9.4 L, Hct 29.4 L, MCV 83.8, MCH 26.8 , MCHC 32.0, RDW 17.0 H, Plt Count 271, MPV 9.8, Gran % 42.4 L, Lymph % (Auto) 48.4 H, [place] % (Auto) 5.0, Eos % (Auto) 3.8, Baso % (Auto) 0.4, Gran # 2.37, Lymph # 2.7, [place] # 0.3, Eos # 0.2, Baso # 0.02, Sodium 142, Potassium 4.3, Chloride 109 H, Carbon Dioxide 25, Anion Gap 12, BUN 21, Creatinine 1.0, Est GFR ( Amer) > 60, Est GFR (Non-Af Amer) 58, Random Glucose 92, Calcium 9.3, Total Bilirubin 0.3, AST 20, ALT 16, Alkaline Phosphatase 66, Total Protein 6.6, Albumin 3.7, Globulin 2.9, Albumin/Globulin Ratio 1.3, Salicylates 6, Acetaminophen < 10.0 L, Alcohol, Quantitative < 10 09/28/16 16:07: Urine Color Yellow, Urine Appearance Cloudy, Urine pH 6.0, Ur Specific [place] 1.010, Urine Protein Negative, Urine Glucose (UA) Negative, Urine Ketones Negative, Urine Blood Negative, Urine Nitrate Negative, Urine Bilirubin Negative, Urine Urobilinogen 0.2, Ur Leukocyte Esterase Moderate H, Urine RBC 0 - 2, Urine WBC 2 - 5, Ur Epithelial Cells 1 - 3, Urine Bacteria Occ Vital Signs Temp Pulse Resp BP Pulse Ox 09/30/16 06:00 98.6 F 66 20 127/84 09/29/16 16:00 89 123/89 09/29/16 09:59 97.9 F 79 20 111/60 09/28/16 22:42 98.0 F 109 H 20 118/84 99 09/28/16 21:42 98 F 76 19 130/75 99 09/28/16 20:46 104 H 18 144/78 98 09/28/16 17:47 89 18 116/68 99 09/28/16 16:29 98.0 F 96 H 18 118/71 98 09/28/16 14:59 98.2 F 102 H 18 120/75 97 Temp Pulse Resp BP Pulse Ox 97.7 F 66 20 120/77 99 10/02/16 07:31 10/02/16 07:31 10/02/16 07:31 10/02/16 07:31 10/01/16 19:42 DSM 5 Symptoms Update: shortly patient is 51 yo Female, self reported h/o anxiety and depression, no previous psychiatric admissions, multiple medical problems, chronic back pain, pt was seen last week on the medical floor, this investment underwriter offered admission, but pt needed to be d/c because of the family issues, pt came back to the ED looking for admission because pt was depressed, anxious, was not able to function, not sleeping, racing thoughts, pt also does not have outpatient psychiatrist, needs medications to be adjusted. Pt was seen today with treatment team. Patient presented to have good personal hygiene, good ADLs. patient presented to be dramatic, was saying that she is in a lot of pain in her back also she has pain in her leg, he shouldn't said that she was in pain yesterday and she was evaluated by medical team and she was started on Percocet. I requested to see a doctor today as well. This investment underwriter spoke to Dr. recently we will resume the medications if needed patient will be seen again. Patient reported that she slept better at the same time patient reported current anxiety is "under control now", patient started that she is worried about her younger daughter who has a lot of legal problems, using drugs. Emotional support was provided. patient said that her mood is "improving", patient denied any thoughts of harming herself or others. patient denied hearing voices denied seeing things. Patient does not present to be psychotic. Patient tolerates medications well, no side effects observed or reported, aims 0 , no EPS. As per nursing staff patient is compliant with the medication but patient has medication seeking behavior, yesterday she threw herself on the floor, attention seeking behavior, was seen by medical team. DSM 5 Diagnosis: rule out major depressive disorder r/o bipolar spectrum disorder r/o ADIS r/o PTSD r/o mood disorder and anxiety disorder due to [facility] Medication Change: No (adjusted yeserday. ) Medical Record Reviewed: Yes Consults ordered or reviewed: edical consult appreciated Neurology consult will be called, patient has history of seizure disorder patient is on Keppra, will ask advice to change Keppra for Depakote Mental Status Examination - Cognitive Function Orientation: Person, Place, Situation, Time Memory: Intact Attention: Poor (somewhat better) Concentration: Poor Association: WNL Fund of Knowledge: WNL - Mood Mood: Depressed (somewhat better), Anxious ("under control) - Affect Affect: Flat - Speech Speech: Appropriate - Formal Thought Process Formal Thought Process: No Impairment - Suicidal Ideation Suicidal Ideation: No - Homicidal Ideation Homicidal Ideation: No Goal/Treatment Plan - Goal/Treatment Plan Need for Continued Stay: Remain at risks for inpatient hospitalization, Severe depression anxiety, Discharge may exacerbated symptoms, Severe functional impairment Progress Toward Problem(s) and Goals/Treatment Plan: Milieu/structure/supportive therapy will continue levETIRAcetam for now neurology consult appreciated, CT of the head ordered, in order to ask advise about depakote as a mood stabilizer patient is on Keppra at times it could give hostility and irritability. pt also has h/o headaches Depakote could be a good choice for migraine headache prophylaxis klonopin 2mg po tid for anxiety for now Pain medication as per medical team Effexor ER 150mg po daily for depression and anxiety for now Remeron 45mg po hs for MDD seroquel 50mg hs (pt was on 25mg po bid) as a mood stabilization SW evaluation Family involvement will monitor closely Medical team consultation Estimated Date of D/C: 10/05/16 (we'll monitor closely)
--- NOTE | 2016-10-02 18:51 | CP.PCM.PN ---
Subjective - Date & Time of Evaluation Date of Evaluation: 10/02/16 Time of Evaluation: 18:00 - Subjective Subjective: Responded stat to "Code star" call. Patient seen laying on the floor in the activity room. She is alert ,awake ,oriented x 3,states she tripped on a piece of plastic on the floor. Denies hitting her head on the floor,No c/o nausea,headache,vomiting,seizures or chest pain or any other symptoms,however she is c/o lower back pain radiating down the R leg. She also states this pain is chronic. VS:BP 109/69 P100 RR 20 T 97.7 O2 sat 97% accucheck 102 LMP:2009 PMH:Seizures,Anxiety,Chronic low back pain,Depression,Gerd,Migraines. History of fall yesterday. Objective - Vital Signs/Intake and Output Vital Signs (last 24 hours): Temp Pulse Resp BP Pulse Ox 97.7 F 66 20 120/77 99 10/02/16 07:31 10/02/16 07:31 10/02/16 07:31 10/02/16 07:31 10/01/16 19:42 - Medications Medications: Current Medications Acetaminophen (Tylenol 325mg Tab) 650 mg PO Q4H PRN PRN Reason: Pain, moderate (4-7) Last Admin: 10/01/16 18:25 Dose: 650 mg Acetaminophen/Butalbital/Caffeine (Fioricet) 1 tab PO Q6H PRN PRN Reason: Headache Last Admin: 10/02/16 10:03 Dose: 1 tab Al Hydrox/Mg Hydrox/Simethicone (Maalox Plus 30 Ml) 30 ml PO DAILY PRN PRN Reason: Indigestion / Heartburn Clonazepam (Klonopin) 2 mg PO [facility] PRN Reason: Protocol Last Admin: 10/02/16 10:03 Dose: 2 mg Clonazepam (Klonopin) 2 mg PO 1600 [facility] PRN Reason: Protocol Last Admin: 10/02/16 15:29 Dose: 2 mg Hydroxyzine Pamoate (Vistaril) 50 mg PO Q8 PRN; Protocol PRN Reason: Anxiety Last Admin: 10/02/16 10:53 Dose: 50 mg Levetiracetam (Keppra) 500 mg PO BID [facility] Last Admin: 10/02/16 15:28 Dose: 500 mg Magnesium Hydroxide (Milk Of Magnesia) 30 ml PO DAILY PRN PRN Reason: Constipation Mirtazapine (Remeron) 45 mg PO [facility] Last Admin: 10/01/16 21:06 Dose: 45 mg Oxycodone/Acetaminophen (Percocet 5/325 Mg Tab) 1 tab PO Q8H PRN PRN Reason: Pain, severe (8-10) Stop: 10/05/16 15:03 Last Admin: 10/02/16 15:28 Dose: 1 tab Quetiapine Fumarate (Seroquel) 50 mg PO [facility] PRN Reason: Protocol Last Admin: 10/01/16 21:06 Dose: 50 mg Venlafaxine HCl (Effexor Xr) 150 mg PO DAILY [facility] Last Admin: 10/02/16 08:23 Dose: 150 mg - Constitutional Appears: No Acute Distress - Head Exam Head Exam: ATRAUMATIC, NORMAL INSPECTION, NORMOCEPHALIC - Eye Exam Eye Exam: PERRL - ENT Exam ENT Exam: Mucous Membranes Moist - Neck Exam Neck Exam: Full ROM, Normal Inspection - Respiratory Exam Respiratory Exam: Clear to Ausculation Bilateral, NORMAL BREATHING PATTERN. absent: Respiratory Distress - Cardiovascular Exam Cardiovascular Exam: Tachycardia - GI/Abdominal Exam GI & Abdominal Exam: Soft, Normal Bowel Sounds. absent: Tenderness - Extremities Exam Extremities Exam: absent: Calf Tenderness - Back Exam Back Exam: paraspinal tenderness (in lumbar region). absent: Full ROM Additional comments: Scoliosis noted. R leg raising test is + at 30 degrees. Moves upper extremities well - Neurological Exam Neurological Exam: Alert, Awake, Oriented x3 - Psychiatric Exam Psychiatric exam: Anxious - Skin Skin Exam: Dry, Warm Additional comments: Faded ecchymotic areas noted below both knees. Assessment and Plan - Assessment and Plan (Free Text) Assessment: S/P Fall Lower back pain R/O injury to Lumbar sacral spine Plan: Xrays of LS Spine,Pelvis and Hips have already been ordered Patient is to go for Xrays by stretcher. To stay in bed till Xrays are seen by radiologist or House MD and are negative.
--- NOTE | 2016-10-02 20:58 | CT ---
EXAM: CT Head Without Intravenous Contrast. CLINICAL HISTORY: 51 years old, female; Pain; Headache; Migraine; Aura effect not specified; Does not respond to medication; Additional info: HX of migraine and seizure TECHNIQUE: Axial computed tomography images of the head/brain without intravenous contrast. This CT exam was performed using one or more of the following dose reduction techniques: automated exposure control, adjustment of the mA and/or kV according to patient size, and/or use of iterative reconstruction technique. COMPARISON: CT - HEAD W/O CONTRAST 05/16/2016 10:56:45 PM FINDINGS: Brain: Mild atrophy. No intracranial hemorrhage. No mass. No definite edema. Ventricles: No hydrocephalus. Bones/joints: No acute fracture. Soft tissues: Unremarkable. Sinuses: Few tiny maxillary retention cysts. Mastoid air cells: No mastoid effusion. Orbits: Few small calcifications along posterior globes, stable. IMPRESSION: 1. No acute intracranial abnormality. 2. Incidental/non-acute findings are described above.
[2016-10-03] MEDS: Oxycodone/Acetaminophen 5/325 mg Tab PO PRN ×3 (05:58→18:19)
[2016-10-03] MEDS: Venlafaxine 75 mg ER Cap PO SCH (08:55)
[2016-10-03] MEDS: Apap-Butalbital-Caffeine 325-50-40mg Tab PO PRN ×3 (09:05→21:41)
--- NOTE | 2016-10-03 09:20 | PCM.PYCHPN ---
Psychiatric Progress Note - Psychiatric Progress Note Patient seen today, length of contact: 25 minutes Patient Chief Complaint: "fine" Problems Identified/Issues Discussed: I reviewed assessment and recent notes. Patient was interviewed a bedside. Patient presents as fairly calm and superficially cooperative during questioning. She reports that her mood is "fine" and thus far her anxiety is "okay". Patient is aware of the recent decrease of her klonopin dosage from 2 mg TID to 1.5 mg PO TID due to recent recurrent falls. Indicates that she fell yesterday because she slipped on a piece of utensil packaging left on the floor , she denies it was due to any dizziness or or blackouts. Patient denies any side effects from her medications at this time feels they have been beneficial. In general she feels like she is getting better, she is hopeful and looking forward to eventual discharge. Patient denies having any hallucinations and does not appear to be responding to internal stimuli. Her responses are relevant to questioning. Affect shows moderate range with fairly appropriate reactivity Staff notes indicate the patient has been notably medication-seeking on the unit with multiple falls, most recently last evening. For this reason, her klonopin dosage has been decreased from 2 mg TID to 1.5 mg TID. Close monitoring will be maintained to ensure her safety. There were no other behavioral issues overnight Diagnostic Results: rule out major depressive disorder r/o bipolar spectrum disorder r/o ADIS r/o PTSD r/o mood disorder and anxiety disorder due to [facility] Medication Change: No ( ) Medical Record Reviewed: Yes (notes, reports, vitals, labs) Mental Status Examination - Cognitive Function Orientation: Person, Place, Situation, Time Memory: Intact Attention: Poor (somewhat better) Concentration: Poor Association: WNL Fund of Knowledge: WNL - Mood Mood: Depressed ("fine"), Anxious ("okay") - Affect Affect: Other (Affect shows moderate range with fairly appropriate reactivity) - Speech Speech: Appropriate - Formal Thought Process Formal Thought Process: No Impairment - Suicidal Ideation Suicidal Ideation: No - Homicidal Ideation Homicidal Ideation: No Goal/Treatment Plan - Goal/Treatment Plan Need for Continued Stay: Remain at risks for inpatient hospitalization, Severe depression anxiety, Discharge may exacerbated symptoms, Severe functional impairment Progress Toward Problem(s) and Goals/Treatment Plan: * c/w current tx and plan * No new labs over the weekend * Head CT 10/02/16: no acute intracranial abnormality * Vitals reviewed and noted below: Selected Entries 10/01/16 10/02/16 19:42 07:31 Temperature 97.3 F L 97.7 F Pulse Rate 88 66 Respiratory 18 20 Rate Blood Pressure 105/65 120/77 O2 Sat by Pulse 99 Oximetry Estimated Date of D/C: 10/05/16 (we'll monitor closely)
--- NOTE | 2016-10-03 11:13 | RAD ---
Indication: Hip pain Left hip with pelvis Comparison: CT of the abdomen and pelvis without contrast performed 09/26/16 Findings: No acute displaced fracture or dislocation identified. Sacroiliac joints appear intact. Sclerosis of the pubic symphysis. Mild constipation. Soft tissues appear unremarkable. No evidence of radiopaque foreign body. Impression: No acute displaced fracture or dislocation evident. If high clinical index of suspicion, suggest cross-sectional imaging for further evaluation. Otherwise, if symptoms persist or if there is continued clinical concern, x-ray follow-up in 7-10 days should be considered.
--- NOTE | 2016-10-03 11:17 | RAD ---
Entire spine peds AP lateral only Comparison: CT abdomen and pelvis without contrast performed 09/26/16 Findings: Scoliosis with curvature of the thoracic convex to the right and the lumbar spine convex to the left. Loss of vertebral body height of T12 compatible with compression fracture. Mild multilevel degenerative changes. Included visualized lung flor appear clear without focal consolidation, pleural effusion, or pneumothorax. Moderate constipation. Nonobstructive bowel gas pattern. No definite free air. Surgical clips are noted within the left gastroesophageal region. Impression: Scoliosis. Loss of vertebral body height of T12 consistent with compression fracture, age indeterminate. MRI may be considered for further assessment. Degenerative changes.
--- NOTE | 2016-10-03 12:02 | RAD ---
PROCEDURE: Radiographs of the Left Shoulder HISTORY: recent fall to left shoulder COMPARISON: None available FINDINGS: BONES: No acute displaced fracture. The distal clavicle and underlying ribs appear intact. JOINTS: No acute dislocation. SOFT TISSUES: Soft tissues appear unremarkable. No evidence of radiopaque foreign body. IMPRESSION: No acute displaced fracture or dislocation evident. If symptoms persist or if there is continued clinical concern, x-ray follow-up in 7-10 days should be considered.
--- NOTE | 2016-10-03 13:31 | CP.PCM.PN ---
Subjective - Date & Time of Evaluation Date of Evaluation: 10/03/16 Time of Evaluation: 08:55 Objective - Vital Signs/Intake and Output Vital Signs (last 24 hours): Temp Pulse Resp BP Pulse Ox 97.3 F L 73 20 93/62 L 99 10/03/16 07:00 10/03/16 07:00 10/03/16 07:00 10/03/16 07:00 10/01/16 19:42 - Medications Medications: Current Medications Acetaminophen (Tylenol 325mg Tab) 650 mg PO Q4H PRN PRN Reason: Pain, moderate (4-7) Last Admin: 10/01/16 18:25 Dose: 650 mg Acetaminophen/Butalbital/Caffeine (Fioricet) 1 tab PO Q6H PRN PRN Reason: Headache Last Admin: 10/03/16 09:05 Dose: 1 tab Al Hydrox/Mg Hydrox/Simethicone (Maalox Plus 30 Ml) 30 ml PO DAILY PRN PRN Reason: Indigestion / Heartburn Clonazepam (Klonopin) 1.5 mg PO AMHS [facility] PRN Reason: Protocol Last Admin: 10/03/16 10:09 Dose: 1.5 mg Clonazepam (Klonopin) 1.5 mg PO 1600 [facility] PRN Reason: Protocol Hydroxyzine Pamoate (Vistaril) 50 mg PO Q8 PRN; Protocol PRN Reason: Anxiety Last Admin: 10/03/16 05:59 Dose: 50 mg Levetiracetam (Keppra) 500 mg PO BID [facility] Last Admin: 10/03/16 08:55 Dose: 500 mg Magnesium Hydroxide (Milk Of Magnesia) 30 ml PO DAILY PRN PRN Reason: Constipation Mirtazapine (Remeron) 45 mg PO HS [facility] Last Admin: 10/02/16 21:48 Dose: 45 mg Oxycodone/Acetaminophen (Percocet 5/325 Mg Tab) 1 tab PO Q8H PRN PRN Reason: Pain, severe (8-10) Stop: 10/05/16 15:03 Last Admin: 10/03/16 05:58 Dose: 1 tab Quetiapine Fumarate (Seroquel) 50 mg PO HS [facility] PRN Reason: Protocol Last Admin: 10/02/16 21:49 Dose: 50 mg Venlafaxine HCl (Effexor Xr) 150 mg PO DAILY [facility] Last Admin: 10/03/16 08:55 Dose: 150 mg
--- NOTE | 2016-10-03 15:10 | CP.PCM.PN ---
Subjective - Date & Time of Evaluation Date of Evaluation: 10/03/16 Time of Evaluation: 09:45 - Subjective Subjective: Medical follow up was requested for chronic back pain and falls. Patient seen and examined at bedside. She states she has two episodes of fall recently. Once was yesterday because she slipped on a plastic sheet. She landed on her side injuring her hip and left shoulder. Earlier this week she fell because her "legs gave out because of sciatica". She complains of chronic back pain and hip pain. She also complains of left shoulder pain. At the same time she is seen ambulating in the hallways several times over the past few days without complaints socializing with staff and other patients. Even during physical examination she can lift and bend both legs/knees to show me her knee scrapings without any discomfort. 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 I also explained to her at length risks of narcotic abuse and dependence. Objective - Vital Signs/Intake and Output Vital Signs (last 24 hours): Temp Pulse Resp BP Pulse Ox 97.3 F L 73 20 93/62 L 99 10/03/16 07:00 10/03/16 07:00 10/03/16 07:00 10/03/16 07:00 10/01/16 19:42 - Medications Medications: Current Medications Acetaminophen (Tylenol 325mg Tab) 650 mg PO Q4H PRN PRN Reason: Pain, moderate (4-7) Last Admin: 10/01/16 18:25 Dose: 650 mg Acetaminophen/Butalbital/Caffeine (Fioricet) 1 tab PO Q6H PRN PRN Reason: Headache Last Admin: 10/03/16 09:05 Dose: 1 tab Al Hydrox/Mg Hydrox/Simethicone (Maalox Plus 30 Ml) 30 ml PO DAILY PRN PRN Reason: Indigestion / Heartburn Clonazepam (Klonopin) 1.5 mg PO [facility] RADHA PRN Reason: Protocol Last Admin: 10/03/16 10:09 Dose: 1.5 mg Clonazepam (Klonopin) 1.5 mg PO 1600 RADHA PRN Reason: Protocol Hydroxyzine Pamoate (Vistaril) 50 mg PO Q8 PRN; Protocol PRN Reason: Anxiety Last Admin: 10/03/16 14:07 Dose: 50 mg Levetiracetam (Keppra) 500 mg PO BID [facility] Last Admin: 10/03/16 08:55 Dose: 500 mg Magnesium Hydroxide (Milk Of Magnesia) 30 ml PO DAILY PRN PRN Reason: Constipation Mirtazapine (Remeron) 45 mg PO HS [facility] Last Admin: 10/02/16 21:48 Dose: 45 mg Oxycodone/Acetaminophen (Percocet 5/325 Mg Tab) 1 tab PO Q8H PRN PRN Reason: Pain, severe (8-10) Stop: 10/05/16 15:03 Last Admin: 10/03/16 14:07 Dose: 1 tab Quetiapine Fumarate (Seroquel) 50 mg PO [facility] PRN Reason: Protocol Last Admin: 10/02/16 21:49 Dose: 50 mg Venlafaxine HCl (Effexor Xr) 150 mg PO DAILY [facility] Last Admin: 10/03/16 08:55 Dose: 150 mg - Constitutional Appears: Well, No Acute Distress - Head Exam Head Exam: NORMAL INSPECTION - Eye Exam Eye Exam: EOMI - ENT Exam ENT Exam: Normal Exam - Neck Exam Neck Exam: Full ROM - Respiratory Exam Respiratory Exam: Clear to Ausculation Bilateral. absent: Rhonchi, Wheezes - Cardiovascular Exam Cardiovascular Exam: REGULAR RHYTHM, +S1, +S2 - GI/Abdominal Exam GI & Abdominal Exam: Soft, Normal Bowel Sounds. absent: Tenderness, Organomegaly - Extremities Exam Extremities Exam: Normal Inspection - Neurological Exam Neurological Exam: Alert, Awake, Oriented x3 - Psychiatric Exam Psychiatric exam: Normal Affect, Normal Mood Assessment and Plan - Assessment and Plan (Free Text) Plan: This is a 51 year old female with multiple medical problems including anxiety, depression, gastroparesis and chronic back pain and opiates dependency who presented with anxiety and depression. Medical consultation was initally requested for medical evaluation. Medical follow up today was requested for chronic pain back and recent falls. CT head showed no acute intracranial abnormality. Left shoulder xray is negative for acute fracture or dislocation. Hip/pelvis xray is also negative for acute fracture or dislocation. Spine xray shows scoliosis and age indeterminant compression fracture at T12 ( compression deformity also seen on xray from 01/01). Continue with percocet prn for pain. PT evaluation was requested. Patient may benefit from TLSO brace. 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 She was counselled on risks of narcotic abuse. I will defer adjusting her percocet for chronic back pain to her pmd or painting department supervisor. Continue with MOM or miralax prn for constipation. Management for anxiety/depression as per psychiatry.
[2016-10-04] MEDS: Apap-Butalbital-Caffeine 325-50-40mg Tab PO PRN ×4 (03:11→21:51)
[2016-10-04] MEDS: Oxycodone/Acetaminophen 5/325 mg Tab PO PRN ×3 (07:38→19:27)
[2016-10-04] MEDS: Venlafaxine 75 mg ER Cap PO SCH (07:38)
--- NOTE | 2016-10-04 09:57 | PCM.PYCHPN ---
Psychiatric Progress Note - Psychiatric Progress Note Patient seen today, length of contact: 25 minutes Patient Chief Complaint: "fine" Problems Identified/Issues Discussed: I reviewed recent notes and patient was interviewed at bedside. Patient presents as fairly calm and superficially cooperative during questioning. She continues to report that her mood is "okay". She feels more anxious today very likely secondary to the decrease of klonopin on the unit. She appears calm and in no apparent distress. Patient denies having any hallucinations and does not appear to be responding to internal stimuli. Her responses are relevant to questioning. Affect shows moderate range with fairly appropriate reactivity Patient denies any side effects from her medications at this time feels they have been beneficial. In general she feels like she is getting better, she is hopeful and looking forward to eventual discharge. Staff notes still indicate the patient has been manipulative and medication- seeking. She insisted on follow up with Dr. Gatica yesterday because of pain complaints. Patient tells me she is sore from her recent fall. Close monitoring will be maintained to ensure her safety. There were no behavioral issues or further falls thus far this weekend. Diagnostic Results: rule out major depressive disorder r/o bipolar spectrum disorder r/o ADIS r/o PTSD r/o mood disorder and anxiety disorder due [place] [facility]ication Change: No ( ) Medical Record Reviewed: Yes (notes, reports, vitals, labs) Mental Status Examination - Cognitive Function Orientation: Person, Place, Situation, Time Memory: Intact Attention: Poor (somewhat better) Concentration: Poor Association: WNL Fund of Knowledge: WNL - Mood Mood: Depressed ("fine"), Anxious ("okay") - Affect Affect: Other (Affect shows moderate range with fairly appropriate reactivity) - Speech Speech: Appropriate - Formal Thought Process Formal Thought Process: No Impairment - Suicidal Ideation Suicidal Ideation: No - Homicidal Ideation Homicidal Ideation: No Goal/Treatment Plan - Goal/Treatment Plan Need for Continued Stay: Remain at risks for inpatient hospitalization, Severe depression anxiety, Discharge may exacerbated symptoms, Severe functional impairment Progress Toward Problem(s) and Goals/Treatment Plan: * c/w current tx and plan * Appreciate f/u by Dr. Gatica : ~ordered PT evaluation, deferred on changes in pain medications to pain management doctor ~Head CT 10/02/16: no acute intracranial abnormality ~Left Shoulder Xray 10/03/16: negative for fracture or dislocation * Vitals reviewed and noted below: Selected Entries 10/03/16 10/03/16 10/04/16 07:00 16:00 07:00 Temperature 97.3 F L 97.8 F Pulse Rate 73 82 77 Respiratory 20 20 Rate Blood Pressure 93/62 L 129/77 114/79 * No new labs over the weekend * Patient remains on high fall precautions Estimated Date of D/C: 10/05/16 (we'll monitor closely)
[2016-10-05] MEDS: Oxycodone/Acetaminophen 5/325 mg Tab PO PRN ×4 (01:23→20:08)
[2016-10-05] MEDS: Venlafaxine 75 mg ER Cap PO SCH (08:17)
[2016-10-05] MEDS: Apap-Butalbital-Caffeine 325-50-40mg Tab PO PRN ×3 (09:26→21:26)
[2016-10-05] MEDS ORDERED: Venlafaxine 75 mg ER Cap PO SCH (13:59)
--- NOTE | 2016-10-05 17:25 | PCM.PYCHPN ---
Psychiatric Progress Note - Psychiatric Progress Note Patient seen today, length of contact: 30 minute Patient Chief Complaint: "I I feel very anxious, I have stomach pain when I'm feeling anxious, I feel nauseated." Problems Identified/Issues Discussed: Suicide/ homicide prevention, past psychiatric h/o, current psychiatric symptoms , medical problems, risk/benefits and alternatives of medications, medications compliance, coping strategies, substance abuse h/o, relapse prevention, importance of follow up with psychiatrist and therapist, discharge plan. Medical Problems: seizures, chronic back pain, anxiety, depression, GERD, migraines, PUD, and DVT Vagotomy, meniscus repair Diagnostic Results: 09/28/16 17:35 09/28/16 17:35 Lab Results 09/29/16 07:43: RPR Nonreactive 09/29/16 05:30: Fasting Glucose 98, Triglycerides 187 H, Cholesterol 188, LDL Cholesterol Direct 72, HDL Cholesterol 78 H, TSH 3rd Generation 0.86 09/28/16 17:40: Urine Opiates Screen Negative, Urine Methadone Screen Negative, Ur Barbiturates Screen Positive H, Ur Phencyclidine Scrn Negative, Ur Amphetamines Screen Negative, U Benzodiazepines Scrn Positive H, U Oth Cocaine Metabols Negative, U Cannabinoids Screen Negative 09/28/16 17:35: WBC 5.6 D, RBC 3.51, Hgb 9.4 L, Hct 29.4 L, MCV 83.8, MCH 26.8 , MCHC 32.0, RDW 17.0 H, Plt Count 271, MPV 9.8, Gran % 42.4 L, Lymph % (Auto) 48.4 H, [place] % (Auto) 5.0, Eos % (Auto) 3.8, Baso % (Auto) 0.4, Gran # 2.37, Lymph # 2.7, [place] # 0.3, Eos # 0.2, Baso # 0.02, Sodium 142, Potassium 4.3, Chloride 109 H, Carbon Dioxide 25, Anion Gap 12, BUN 21, Creatinine 1.0, Est GFR ( Amer) > 60, Est GFR (Non-Af Amer) 58, Random Glucose 92, Calcium 9.3, Total Bilirubin 0.3, AST 20, ALT 16, Alkaline Phosphatase 66, Total Protein 6.6, Albumin 3.7, Globulin 2.9, Albumin/Globulin Ratio 1.3, Salicylates 6, Acetaminophen < 10.0 L, Alcohol, Quantitative < 10 09/28/16 16:07: Urine Color Yellow, Urine Appearance Cloudy, Urine pH 6.0, Ur Specific [place] 1.010, Urine Protein Negative, Urine Glucose (UA) Negative, Urine Ketones Negative, Urine Blood Negative, Urine Nitrate Negative, Urine Bilirubin Negative, Urine Urobilinogen 0.2, Ur Leukocyte Esterase Moderate H, Urine RBC 0 - 2, Urine WBC 2 - 5, Ur Epithelial Cells 1 - 3, Urine Bacteria Occ Vital Signs Temp Pulse Resp BP Pulse Ox 09/30/16 06:00 98.6 F 66 20 127/84 09/29/16 16:00 89 123/89 09/29/16 09:59 97.9 F 79 20 111/60 09/28/16 22:42 98.0 F 109 H 20 118/84 99 09/28/16 21:42 98 F 76 19 130/75 99 09/28/16 20:46 104 H 18 144/78 98 09/28/16 17:47 89 18 116/68 99 09/28/16 16:29 98.0 F 96 H 18 118/71 98 09/28/16 14:59 98.2 F 102 H 18 120/75 97 Temp Pulse Resp BP Pulse Ox 97.7 F 66 20 120/77 99 10/02/16 07:31 10/02/16 07:31 10/02/16 07:31 10/02/16 07:31 10/01/16 19:42 Temp Pulse Resp BP Pulse Ox 98.0 F 75 20 115/81 99 10/05/16 07:00 10/05/16 07:00 10/05/16 07:00 10/05/16 07:00 10/01/16 19:42 story of the thoracic spine which was done on 10/02/2016 Impression: Scoliosis Loss of vertebral body height of T12 consistent with compression fracture, age undetermined Jr, MRI may be considered for further assessment degenerative changes medical team is aware of the following findings CT scan of the head: No acute changes, mild atrophy DSM 5 Symptoms Update: shortly patient is 51 yo Female, self reported h/o anxiety and depression, no previous psychiatric admissions, multiple medical problems, chronic back pain, pt was seen last week on the medical floor, this writer technical publications offered admission, but pt needed to be d/c because of the family issues, pt came back to the ED looking for admission because pt was depressed, anxious, was not able to function, not sleeping, racing thoughts, pt also does not have outpatient psychiatrist, needs medications to be adjusted. Pt was seen today with treatment team. Patient presented to have good personal hygiene, good ADLs. patient presented to be less dramatic, patient said that she didn't fall, patient reports that her mood is improving, at the same time patient reported that her anxiety is "very bad" patient reported if she feels anxious she cannot eat, she cannot function, patient also reported that she extremely worried about her daughter who has a lot of legal problems. Patient reported that she slept better. patient said that her mood is "improving", patient denied any thoughts of harming herself or others. patient denied hearing voices denied seeing things. Patient does not present to be psychotic. Patient tolerates medications well, no side effects observed or reported, aims 0 , no EPS. As per nursing staff patient is compliant with the medication, nno falls over this weekend. He shouldn't still has medication seeking behavior, especially Percocet. DSM 5 Diagnosis: rule out major depressive disorder r/o bipolar spectrum disorder r/o ADIS r/o PTSD r/o mood disorder and anxiety disorder due to [facility] Medication Change: Yes (Effexor or maximized, Klonopin 2 mg 3 times a day) Medical Record Reviewed: Yes (notes, reports, vitals, labs) Consults ordered or reviewed: edical consult appreciated Neurology consult will be called, patient has history of seizure disorder patient is on Keppra, will ask advice to change Keppra for Depakote Mental Status Examination - Cognitive Function Orientation: Person, Place, Situation, Time Memory: Intact Attention: Poor (somewhat better) Concentration: Poor (improving) Association: WNL Fund of Knowledge: WNL - Mood Mood: Depressed ("fine"), Anxious (I feel stomach pain and nausea feel very anxious) - Affect Affect: Other (Affect shows moderate range with fairly appropriate reactivity) - Speech Speech: Appropriate - Formal Thought Process Formal Thought Process: No Impairment - Suicidal Ideation Suicidal Ideation: No - Homicidal Ideation Homicidal Ideation: No Goal/Treatment Plan - Goal/Treatment Plan Need for Continued Stay: Remain at risks for inpatient hospitalization, Severe depression anxiety, Discharge may exacerbated symptoms, Severe functional impairment Progress Toward Problem(s) and Goals/Treatment Plan: Milieu/structure/supportive therapy will continue levETIRAcetam for now CT of the head done medical team is aware of that klonopin 2mg po tid for anxiety for now Pain medication as per medical team Effexor ER we'll maximize 225mg po daily for depression and anxiety for now Remeron 45mg po hs for MDD seroquel 50mg hs (pt was on 25mg po bid) as a mood stabilization SW evaluation Family involvement will monitor closely Medical team consultation possible discharge tomorrow Estimated Date of D/C: 10/06/16 (we'll monitor closely)
[2016-10-06] MEDS: Apap-Butalbital-Caffeine 325-50-40mg Tab PO PRN (07:33)
[2016-10-06] MEDS: Oxycodone/Acetaminophen 5/325 mg Tab PO PRN (08:02)
[2016-10-06 09:25] VITALS: BP 127/92; PULSE 72; TEMP 98.2
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
== END 2016-10-06 14:12 | disposition home or self-care (01) | DRG 425 ==
LOC: ED 14:55 → ERH 20:21 → PSYC 22:31
PROVIDERS: ADMIT Psychiatry & Neurology Psychiatry; ATTEND Psychiatry & Neurology Psychiatry
PROC: GZ3ZZZZ Medication Management (ICD-10-PCS; principal; 2016-09-28)
DX: F41.9 Anxiety disorder, unspecified (principal); F43.10 Post-traumatic stress disorder, unspecified; F39 Unspecified mood [affective] disorder; F11.20 Opioid dependence, uncomplicated; K27.9 Peptic ulcer, site unspecified, unspecified as acute or chronic, without hemorrhage or perforation; G40.909 Epilepsy, unspecified, not intractable, without status epilepticus; M41.9 Scoliosis, unspecified; G89.29 Other chronic pain; K21.9 Gastro-esophageal reflux disease without esophagitis; G43.909 Migraine, unspecified, not intractable, without status migrainosus; K59.00 Constipation, unspecified; Z76.5 Malingerer [conscious simulation]; G47.00 Insomnia, unspecified; M54.30 Sciatica, unspecified side; Z91.81 History of falling; Z98.84 Bariatric surgery status; Z90.49 Acquired absence of other specified parts of digestive tract; Z91.410 Personal history of adult physical and sexual abuse

== ENCOUNTER 2016-10-09 23:55 | Observation (INO) | payer MEDICAID ==
[2016-10-09 23:58] VITALS: BMI 22.8
[2016-10-10] MEDS ORDERED: Sodium Chloride 0.9% 1,000 ML IV STA (00:02)
--- NOTE | 2016-10-10 00:05 | ED PDOC ---
Arrival/HPI - General Chief Complaint: Syncope Time Seen by Provider: 10/10/16 00:00 Historian: Patient - History of Present Illness Narrative History of Present Illness (Text): 10/10/16 00:01 51 year old female presents to the Emergency department via EMS s/p syncopal episode. She reports she became overwhelmed during an argument with her daughter and passed out [employer]LLING [employer]ORDIN[employer]. Patient complaining of slight headache. She denies any other complaints. Time/Duration: Prior to Arrival Symptom Onset: Sudden Symptom Course: Unchanged Activities at Onset: Emotional Upset Past Medical History - Provider Review Nursing Documentation Reviewed: Yes - Infectious Disease Hx of Infectious Diseases: None - Tetanus Immunization Tetanus Immunization: Unknown - Past Medical History Past Medical History: No Previous - Cardiac Hx Cardiac Disorders: Yes Hx Hypertension: Yes - Pulmonary Hx Respiratory Disorders: Yes Hx Pneumonia: Yes Hx Tuberculosis: No - Neurological Hx Neurological Disorder: Yes HX Cerebrovascular Accident: No Hx Seizures: Yes - HEENT Hx HEENT Disorder: No - Renal Hx Renal Disorder: No - Endocrine/Metabolic Hx Endocrine Disorders: No - Hematological/Oncological Hx Blood Disorders: No Hx Cancer: No - Integumentary Hx Dermatological Disorder: No - Musculoskeletal/Rheumatological Hx Falls: Yes - Gastrointestinal Hx Gastrointestinal Disorders: Yes Hx Gastroesophageal Reflux: Yes Other/Comment: Gastroparesis. Gastric ulcer removed - Genitourinary/Gynecological Hx Genitourinary Disorders: No Hx Sexually Transmitted Diseases: No - Psychiatric Hx Psychophysiologic Disorder: Yes Hx Anxiety: Yes Hx Depression: Yes Hx Physical Abuse: No Hx Sexual Abuse: No Hx Substance Use: No - Surgical History Hx Cholecystectomy: Yes Hx Gastric Bypass Surgery: Yes (2013) - Anesthesia Hx Anesthesia: Yes Hx Anesthesia Reactions: No Hx Malignant Hyperthermia: No - Suicidal Assessment Feels Threatened In Home Enviroment: No Family/Social History - Physician Review Nursing Documentation Reviewed: Yes Family/Social History: Unknown Family HX Smoking Status: Former Smoker Hx Alcohol Use: No Hx Substance Use: No Hx Substance Use Treatment: No Allergies/Home Meds Allergies/Adverse Reactions: Allergies Penicillins Allergy (Intermediate, Verified 09/29/16 00:08) HIVES naproxen [From Naprosyn] Allergy (Verified 09/29/16 00:08) NAUSEA compazine Allergy (Intermediate, Uncoded 09/29/16 00:08) muscle stiffening Home Medications: Home Meds Medication Instructions Recorded Confirmed Acetaminophen/Butalbital/Caf 1 tab PO PRN PRN 09/28/16 10/10/16 [Fioricet] Physical Exam - Physical Exam Narrative Physical Exam (Text): 10/10/16 00:10 - Review of Systems Constitutional: Normal absent: Fatigue, Weight Change, Fevers Eyes: Normal ENT: Normal Respiratory: Normal absent: SOB, Cough, Sputum Cardiovascular: Syncope absent: Chest pain, Palpitations Gastrointestinal: Normal absent: Abdominal pain, Diarrhea, Nausea, Vomiting Genitourinary: Normal. absent: Dysuria, Frequency, Hematuria Musculoskeletal: Normal. absent: Arthralgias, Back Pain, Neck Pain Skin: Normal Neurological: Slight headache. absent: Focal Weakness Endocrine: Normal Hemo/Lymphatic: Normal Psychiatric: Normal - Physical exam Patient appears age appropriate, speaking full sentences without difficulty - Systems Exam Head: Present: Atraumatic, Normocephalic Pupils: Present: PERRL Extraocular Muscles: Present: EOMI Conjunctiva: Present: Normal Mouth: Present: Moist Mucous Membranes Neck: Present: Normal Range of Motion. No: MIDLINE TENDERNESS, Paraspinal Tenderness Respiratory/Chest: Present: Clear to Auscultation, Good Air Exchange. No: Respiratory Distress, Accessory Muscle Use, Tachypneic Cardiovascular: Present: Regular Rate and Rhythm, Normal S1, S2, Peripheral Pulses Present. No: Murmurs Abdomen: Present: Normal Bowel Sounds, No: Tenderness, Peritoneal Signs, Rebound, Guarding, Distention Back: Present: Normal Inspection. No: Midline Tenderness, Paraspinal Tenderness Upper Extremity: Present: Normal Inspection. No: Cyanosis, Edema Lower Extremity: Present: Normal Inspection. No: Edema Neurological: Present: GCS=15, Speech Normal, cranial nerves II through XII fully intact with no cerebellar abnormality, neuro-sensory fully intact. No focal neurological deficits. Skin: Present: Warm, Dry, Normal Color. No: Rashes Lymphatic: Present: OX3, NI, NC Psychiatric: Present: Alert, Oriented x 3, Normal Insight, Normal Concentration Head atraumatic. No nasal bone deformity or tenderness, no facial or jaw pain/ swelling. No neck midline tenderness, thoracic and lumbar spine with no midline tenderness. Pt moving b/l upper and lower extremities without difficulty, 5/5 strength, with full active and passive ROM. Distal neurovasc fully intact. Abd soft/nt/ng, no hematomas, no peritoneal signs. Neg. pelvic rock. Vital Signs Pulse Resp Pulse Ox 10/10/16 02:35 85 16 99 Medical Decision Making ED Course and Treatment: 10/10/16 00:13 Impression: 51 year old female s/p syncopal episode complaining of slight headache. Physical exam unremarkable. Plan: --CT Head --EKG --Chest X-ray --Labs --IVF, Tylenol -- Reassess and disposition Progress Notes: Patient states she has not taken any prescription pain narcotics today. However , she had a pill bottle with 4 oxycodone out of 16 left which were filled today. 10/10/16 01:35 10/10/16 02:04 Chest X-ray read and interpreted by me, which shows no cardiomegaly, no pneumothorax, no effusions. 10/10/16 02:52 EKG: Ordered, reviewed, and independently interpreted the EKG. Rate : 84 BPM Rhythm : NSR Interpretation : No ST-segment elevations, normal axis, normal intervals. Interpreted by me. Comparison : No previous EKG for comparison. 10/10/16 02:57 pt in no distress, denies complaints no focal neurological deficits on reeval dw Dr. Longoria, agrees with tele obs for syncope pt aware of and agrees with plan - Lab Interpretations Lab Results: 10/10/16 00:45 10/10/16 00:45 Lab Results 10/10/16 00:45: WBC 4.3 L D, RBC 3.64, Hgb 9.8 L, Hct 30.1 L, MCV 82.7, MCH 26.9 , MCHC 32.6, RDW 15.7 H, Plt Count 221, MPV 9.6, Gran % 58.4, Lymph % (Auto) 32.8, [place] % (Auto) 7.4 H, Eos % (Auto) 1.2 L, Baso % (Auto) 0.2, Gran # 2.53, Lymph # 1.4, [place] # 0.3, Eos # 0.1, Baso # 0.01, Sodium 135, Potassium 3.6, Chloride 103, Carbon Dioxide 19 L, Anion Gap 17, BUN 31 H, Creatinine 1.3, Est GFR ( Amer) 52, Est GFR (Non-Af Amer) 43, Random Glucose 198 H, Calcium 8.6, Total Bilirubin 0.3, AST 195 H, ALT 162 H, Alkaline Phosphatase 138 H, Lactate Dehydrogenase 820 H, Total Creatine Kinase 173, Troponin I < 0.01, Total Protein 6.9, Albumin 3.9, Globulin 3.0, Albumin/Globulin Ratio 1.3 I have reviewed the lab results: Yes - RAD Interpretation Narrative RAD Interpretations (Text): 10/10/16 01:35 EXAM: CT Head Without Intravenous Contrast Dictated and Authenticated by: Trista John MD FINDINGS: Brain: Ventricles are normal in size.. There is no midline shift. There is prominence of sulci and gyri. There is prominence of extra-axial spaces. There are no intra-axial or extra- axial mass lesions or areas of hemorrhage. There are no abnormal fluid collections. Arambula-white differentiation is maintained. Ventricles: See above. Bones: Cranial vault is intact. Soft tissues: unremarkable Sinuses: There is no acute sinusitis. Ears and mastoids: Middle ears and mastoids are unremarkable Orbits: Orbital contents are unremarkable. IMPRESSION: No acute intracranial abnormality Radiology Orders: 10/10/16 00:01 HEAD W/O CONTRAST [CT] Stat CHEST PORTABLE [RAD] Stat Ms Sql Server Developer: Radiologist - Medication Orders Current Medication Orders: Discontinued Medications Acetaminophen (Tylenol 325mg Tab) 975 mg PO STAT STA Stop: 10/10/16 00:03 Last Admin: 10/10/16 02:40 Dose: Not Given Non-Admin Reason: Patient Refused MAR Pain/Vitals Document 10/10/16 02:40 EKEOO (Rec: 10/10/16 02:40 EKEOO [id number] ATTEND) Sleep Is patient sleeping during reassessment? No Sodium Chloride (Sodium Chloride 0.9%) 1,000 mls @ 1,000 mls/hr IV .Q1H STA Stop: 10/10/16 01:01 - Scribe Statement The provider has reviewed the documentation as recorded by the Jose Antonio Razo Provider Scribe Attestation: All medical record entries made by the Scribe were at my direction and personally dictated by me. I have reviewed the chart and agree that the record accurately reflects my personal performance of the history, physical exam, medical decision making, and the department course for this patient. I have also personally directed, reviewed, and agree with the discharge instructions and disposition. Disposition/Present on Arrival - Present on Arrival Any Indicators Present on Arrival: No History of DVT/PE: Yes History of Uncontrolled Diabetes: No Urinary Catheter: No History of Decub. Ulcer: No History Surgical Site Infection Following: None - Disposition Have Diagnosis and Disposition been Completed?: Yes Diagnosis: Syncope Disposition: HOSPITALIZED Disposition Time: 02:59 Patient Plan: Observation Patient Problems: Current Active Problems Problem Status Diagnosed Colitis Acute Elevated LFTs Acute Ileus Acute Condition: FAIR Discharge Instructions (ExitCare): Syncope (ED)
[2016-10-10 00:53] LABS: ADD MANUAL DIFF? NO
[2016-10-10 00:56] LABS: BASO # 0.01 K/mm3 (0.0-2.0); BASO % 0.2 % (0.0-3.0); EOS # 0.1 (0.0-0.7); EOS % 1.2 % (1.5-5.0); GRAN # 2.53 (1.4-6.5); GRAN % 58.4 % (50.0-68.0); HEMATOCRIT 30.1 % (36.0-48.0); LYMPH # 1.4 (1.2-3.4); LYMPH % 32.8 % (22.0-35.0); MEAN CELL VOLUME 82.7 fL (80.0-105.0); MEAN CORPUSCULAR HEMOGLOBIN 26.9 pg (25.0-35.0); MEAN CORPUSCULAR HGB CONC 32.6 g/dl (31.0-37.0); MEAN PLATELET VOLUME 9.6 fl (7.0-11.0); MONO # 0.3 (0.1-0.6); MONO % 7.4 % (1.0-6.0); PLATELET COUNT 221 10^3/uL (120.0-450.0); RED CELL DISTRIBUTION WIDTH 15.7 % (11.5-14.5); WHITE BLOOD COUNT 4.3 10^3/ul (4.5-11.0)
[2016-10-10 01:04] LABS: ALB/GLOB RATIO 1.3 (1.1-1.8); ALKALINE PHOSPHATASE 138 U/L (38-133); ALT/SGPT 162 U/L (7-56); AST/SGOT 195 U/L (15-39); BILIRUBIN,TOTAL 0.3 mg/dL (0.2-1.3); BLOOD UREA NITROGEN 31 mg/dL (7-21); CALCIUM 8.6 mg/dL (8.4-10.5); CARBON DIOXIDE 19 mmol/L (21-33); CHLORIDE 103 mmol/L (98-107); GFR AFRICAN-AMERICAN 52; GLUCOSE,RANDOM 198 mg/dL (70-110); POTASSIUM 3.6 mmol/L (3.6-5.0); SODIUM 135 mmol/L (132-148); TOTAL PROTEIN 6.9 g/dL (5.8-8.3)
--- NOTE | 2016-10-10 01:11 | CT ---
EXAM: CT Head Without Intravenous Contrast. CLINICAL HISTORY: 51 years old, female; Signs and symptoms; Altered mental status/memory loss; Confusion or disorientation; Additional info: Syncope TECHNIQUE: Axial computed tomography images of the head/brain without intravenous contrast. This CT exam was performed using one or more of the following dose reduction techniques: automated exposure control, adjustment of the mA and/or kV according to patient size, and/or use of iterative reconstruction technique. EXAM DATE/TIME: 10/10/2016 12:01 AM COMPARISON: CT - HEAD W/O CONTRAST 10/02/2016 8:29:56 PM FINDINGS: Brain: Ventricles are normal in size.. There is no midline shift. There is prominence of sulci and gyri. There is prominence of extra-axial spaces. There are no intra-axial or extra-axial mass lesions or areas of hemorrhage. There are no abnormal fluid collections. Arambula-white differentiation is maintained. Ventricles: See above. Bones: Cranial vault is intact. Soft tissues: unremarkable Sinuses: There is no acute sinusitis. Ears and mastoids: Middle ears and mastoids are unremarkable Orbits: Orbital contents are unremarkable. IMPRESSION: No acute intracranial abnormality
[2016-10-10 01:29] LABS: TROPONIN I < 0.01 ng/mL
--- NOTE | 2016-10-10 03:10 | CP.PCM.HP ---
<Meagan Butt - Last Filed: 10/10/16 04:49> History of Present Illness - History of Present Illness History of Present Illness: PGY-[address] Longoria H&P Admission: Tele obs for syncope 51 y/o F with PMH of seizures on Keppra, gastroparesis, chronic back pain, anxiety, depression, GERD, migraines, PUD, and DVT presents to the Emergency department via EMS s/p syncopal episode. She reports she became overwhelmed during an argument with her daughter and passed out. Patient states she cannot remember taking how many pills today. However, she had a pill bottle with 4 oxycodone out of 16 left which were filled today. Pt took medicine and pain meds at 2pm. Dinner at 6pm. Then argument with daughter, vomit, saw undigested food and pills fragments. Then during the argument, with raised voice, passed out. Next recollection is the ambulance ride. On ED arrival, VSS - Chest X-ray shows no cardiomegaly, no pneumothorax, no effusions. - EKG NSR @ 84. No ST-segment elevations, normal axis, normal intervals. - CT head negative of acute intracranial abnormality Pt was recently in the admitted to the hospital for intractable vomiting and discharged on 09/22/16. Then admit on psych floor on 09/28/16 for anxiety and depression and recently discharge on 10/06/16. Pt is seen again today. ROS - Positive slight MARTINEZ. PMH: HTN DVT - 3 years ago. Stop coumadin 1 year ago Seizures on Keprra chronic back pain, spinal stenosis, failed physical therapy GERD, PUD s/p Billroth II procedure with vagotomy Gastroparesis, refractory to med use, started since 25 years ago migraines on fioricet anxiety, depression Broken wrist s/p fall, no surgery Surgical Hx: Vagotomy, Gastric bypass surgery, Gastric ulcer removal 2013 - Dr. Garibay [facility] PEG tube placement and removal to treat rapid weight loss - 2014 SH: Live with mom, brother, daughter. Former smoker, quit 1 year ago. 1/2 ppd x 10 years Denies alcohol, or illicit drug use Allergies: Penicillin, naproxen, compazine Medications: Pt takes percocet at home for back pain and fioricet for headaches. PMD = Dr. Buckner Pain Managemnent = Dr. Soriano (Pt no longer see pain management for injection because of distance and insurance) Present on Admission - Present on Admission Any Indicators Present on Admission: Yes History of DVT/PE: Yes Past Patient History - Infectious Disease Hx of Infectious Diseases: None - Tetanus Immunizations Tetanus Immunization: Unknown - Past Medical History & Family History Past Medical History?: Yes - Past Social History Smoking Status: Former Smoker - CARDIAC Hx Cardiac Disorders: Yes Hx Hypertension: Yes - PULMONARY Hx Respiratory Disorders: Yes Hx Pneumonia: Yes Hx Tuberculosis: No - NEUROLOGICAL Hx Neurological Disorder: Yes HX Cerebrovascular Accident: No Hx Seizures: Yes - HEENT Hx HEENT Problems: No - RENAL Hx Chronic Kidney Disease: No - ENDOCRINE/METABOLIC Hx Endocrine Disorders: No - HEMATOLOGICAL/ONCOLOGICAL Hx Blood Disorders: No Hx Cancer: No - INTEGUMENTARY Hx Dermatological Problems: No - MUSCULOSKELETAL/RHEUMATOLOGICAL Hx Falls: Yes - GASTROINTESTINAL Hx Gastrointestinal Disorders: Yes Hx Gastroesophageal Reflux: Yes Other/Comment: Gastroparesis. Gastric ulcer removed - GENITOURINARY/GYNECOLOGICAL Hx Genitourinary Disorders: No Hx Sexually Transmitted Disorders: No - PSYCHIATRIC Hx Psychophysiologic Disorder: Yes Hx Anxiety: Yes Hx Depression: Yes Hx Physical Abuse: No Hx Sexual Abuse: No Hx Substance Use: No - SURGICAL HISTORY Hx Cholecystectomy: Yes Hx Gastric Bypass Surgery: Yes (2013) - ANESTHESIA Hx Anesthesia: Yes Hx Anesthesia Reactions: No Hx Malignant Hyperthermia: No Meds Allergies/Adverse Reactions: Allergies Allergy/AdvReac Type Severity Reaction Status Date / Time Penicillins Allergy Intermediate HIVES Verified 09/29/16 00:08 naproxen [From Naprosyn] Allergy NAUSEA Verified 09/29/16 00:08 compazine Allergy Intermediate muscle Uncoded 09/29/16 00:08 stiffening Physical Exam - Constitutional Appears: No Acute Distress - Head Exam Head Exam: ATRAUMATIC, NORMOCEPHALIC - Eye Exam Eye Exam: EOMI, Normal appearance, PERRL Pupil Exam: NORMAL ACCOMODATION - ENT Exam ENT Exam: Mucous Membranes Moist - Neck Exam Neck exam: Positive for: Normal Inspection. Negative for: Lymphadenopathy, Meningismus Additional comments: supple - Respiratory Exam Respiratory Exam: Clear to Auscultation Bilateral, NORMAL BREATHING PATTERN. absent: Rales, Rhonchi, Wheezes - Cardiovascular Exam Cardiovascular Exam: REGULAR RHYTHM, +S1, +S2. absent: Systolic Murmur - GI/Abdominal Exam GI & Abdominal Exam: Normal Bowel Sounds, Soft, Tenderness (LUQ, chronic) Additional comments: healed PEG tube scar - Extremities Exam Extremities exam: Positive for: normal capillary refill, pedal pulses present. Negative for: calf tenderness, pedal edema - Back Exam Back exam: absent: CVA tenderness (L), CVA tenderness (R), paraspinal tenderness , vertebral tenderness Additional comments: lower back pain, chronic, not worsened no different from past pain. R hip pain. bilateral suprascapular pain - Neurological Exam Neurological exam: Alert, CN II-XII Intact, Oriented x3, Reflexes Normal Additional comments: negative [place]. Motor 5/5 all extremities. Decrease sensation on R UE and R LE, chronic. Rapid alternating movement intact - Psychiatric Exam Psychiatric exam: Normal Affect, Normal Mood - Skin Skin Exam: Dry, Normal Color, Warm Additional comments: No bruises Results - Vital Signs Recent Vital Signs: Last Vital Signs Temp Pulse 85 10/10/16 02:35 Resp 16 10/10/16 02:35 BP Pulse Ox 99 10/10/16 02:35 - Labs Result Diagrams: 10/10/16 00:45 10/10/16 00:45 Labs: Laboratory Results - last 24 hr 10/10/16 00:45 WBC 4.3 L D RBC 3.64 Hgb 9.8 L Hct 30.1 L MCV 82.7 MCH 26.9 MCHC 32.6 RDW 15.7 H Plt Count 221 MPV 9.6 Gran % 58.4 Lymph % (Auto) 32.8 [place] % (Auto) 7.4 H Eos % (Auto) 1.2 L Baso % (Auto) 0.2 Gran # 2.53 Lymph # 1.4 [place] # 0.3 Eos # 0.1 Baso # 0.01 Sodium 135 Potassium 3.6 Chloride 103 Carbon Dioxide 19 L Anion Gap 17 BUN 31 H Creatinine 1.3 Est GFR ( Amer) 52 Est GFR (Non-Af Amer) 43 Random Glucose 198 H Calcium 8.6 Total Bilirubin 0.3 AST 195 H ALT 162 H Alkaline Phosphatase 138 H Lactate Dehydrogenase 820 H Total Creatine Kinase 173 Troponin I < 0.01 Total Protein 6.9 Albumin 3.9 Globulin 3.0 Albumin/Globulin Ratio 1.3 Assessment & Plan - Assessment and Plan (Free Text) Plan: 51 y/o F with PMH of seizures on Keppra, gastroparesis, chronic back pain, anxiety, depression, GERD, migraines, PUD, and DVT presents to the Emergency department via EMS s/p syncopal episode. Precipitating events include argument with daughter with raised voice and vomiting. Pt may have taken unknown number of percocet pills. Transaminitis with elevated alk phos Elevated dehydrogenase - pt hx suggestive of percocet overdose - stat serum acetaminophen and salicylate level - Liver biopsy 2016: chronic inflammation and 2 non-necrotizing granulomas - U/S abdomin with doppler r/o budd-chiari/HV/PV thrombosis - cerulopasmin level and hep panel - GI consult Syncope - cardiogenic vs vasovago vs neurogenic vs psychogenic - orthostatic vitals - carotid artery - echocardiogram - neuro and cardio consult - physical therapy Fall - pelvix XR r/o fracture - no skull fracture per CT head Azotemia - Cre raises 0.3 - BUN elevated at 31 - s/p 1L NS bolus - encourage water intake Prophylasix - Lovenox - protonix LBP - morphine 1q4 moderate pain, 2q4 severe pain, Miralax, docusate; hold home med percocet for LFT Seizure - keppra Mood disorder - Venalfaxine, seroquel, mirtazapine, klonopine Migraine - fioricet - watch liver function S/R/D/w Dr. Longoria - Date & Time Date: 10/10/16 Time: 04:07 <Josh Longoria - Last Filed: 10/10/16 22:45> Results - Vital Signs Recent Vital Signs: Last Vital Signs Temp 99.4 F 10/10/16 12:00 Pulse 104 H 10/10/16 12:00 Resp 20 10/10/16 12:00 BP 121/72 10/10/16 12:00 Pulse Ox 99 10/10/16 05:24 - Labs Result Diagrams: 10/10/16 06:15 10/10/16 06:15 Labs: Laboratory Results - last 24 hr 10/10/16 06:15 WBC 4.3 L RBC 3.76 Hgb 9.9 L Hct 30.9 L MCV 82.2 MCH 26.3 MCHC 32.0 RDW 15.7 H Plt Count 230 MPV 9.6 Gran % 60.1 Lymph % (Auto) 30.1 [place] % (Auto) 7.7 H Eos % (Auto) 1.9 Baso % (Auto) 0.2 Gran # 2.57 Lymph # 1.3 [place] # 0.3 Eos # 0.1 Baso # 0.01 Sodium 141 Potassium 4.1 Chloride 105 Carbon Dioxide 24 Anion Gap 16 BUN 25 H Creatinine 1.0 Est GFR ( Amer) > 60 Est GFR (Non-Af Amer) 58 Random Glucose 100 Calcium 8.8 Total Bilirubin 0.2 AST 153 H ALT 168 H Alkaline Phosphatase 136 H Total Protein 6.8 Albumin 3.8 Globulin 3.0 Albumin/Globulin Ratio 1.3 Salicylates < 1 L Acetaminophen < 10.0 L Attending/Attestation - Attestation I have personally seen and examined this patient.: Yes I have fully participated in the care of the patient.: Yes I have reviewed all pertinent clinical information: Yes Notes (Text): 10/10/16 22:44 agree with history , physical examination, assessment and plan. seen with Dr.Katherine Butt.
[2016-10-10] MEDS ORDERED: Morphine 2 mg/ml ISec IVP PRN ×2 (04:45→04:46)
[2016-10-10] MEDS ORDERED: Apap-Butalbital-Caffeine 325-50-40mg Tab PO PRN (04:46)
[2016-10-10] MEDS ORDERED: HYDROmorphone 0.5 mg/0.5 ml ISec IVP PRN (06:02)
[2016-10-10 06:49] LABS: ADD MANUAL DIFF? NO
[2016-10-10] MEDS: HYDROmorphone 0.5 mg/0.5 ml ISec IVP PRN ×5 (06:55→22:57)
[2016-10-10 07:08] LABS: BASO # 0.01 K/mm3 (0.0-2.0); BASO % 0.2 % (0.0-3.0); EOS # 0.1 (0.0-0.7); EOS % 1.9 % (1.5-5.0); GRAN # 2.57 (1.4-6.5); GRAN % 60.1 % (50.0-68.0); HEMATOCRIT 30.9 % (36.0-48.0); LYMPH # 1.3 (1.2-3.4); LYMPH % 30.1 % (22.0-35.0); MEAN CELL VOLUME 82.2 fL (80.0-105.0); MEAN CORPUSCULAR HEMOGLOBIN 26.3 pg (25.0-35.0); MEAN PLATELET VOLUME 9.6 fl (7.0-11.0); MONO # 0.3 (0.1-0.6); MONO % 7.7 % (1.0-6.0); PLATELET COUNT 230 10^3/uL (120.0-450.0); RED CELL DISTRIBUTION WIDTH 15.7 % (11.5-14.5); WHITE BLOOD COUNT 4.3 10^3/ul (4.5-11.0)
[2016-10-10 07:12] LABS: ALB/GLOB RATIO 1.3 (1.1-1.8); ALKALINE PHOSPHATASE 136 U/L (38-133); ALT/SGPT 168 U/L (7-56); AST/SGOT 153 U/L (15-39); BILIRUBIN,TOTAL 0.2 mg/dL (0.2-1.3); BLOOD UREA NITROGEN 25 mg/dL (7-21); CALCIUM 8.8 mg/dL (8.4-10.5); CARBON DIOXIDE 24 mmol/L (21-33); CHLORIDE 105 mmol/L (98-107); GFR AFRICAN-AMERICAN > 60; GLUCOSE,RANDOM 100 mg/dL (70-110); POTASSIUM 4.1 mmol/L (3.6-5.0); SODIUM 141 mmol/L (132-148); TOTAL PROTEIN 6.8 g/dL (5.8-8.3)
--- NOTE | 2016-10-10 09:30 | CON ---
DATE: 10/10/2016 HISTORY OF PRESENT ILLNESS: The patient is a 51-year-old woman with a history of depression. She mistry d a syncopal episode after having dental work. She took 4 extra oxycodone along with her other psych iatric medications which resulted in a syncopal episode. PAST MEDICAL HISTORY: Includes no previous cardiac history. Echocardiogram done late last year reve als normal LV function with no LV outflow obstruction. Her past medical history also includes a history of DVTs in which her Coumadin was stopped 3 years ag o. No angina, no shortness of breath. The patient is feeling well. SOCIAL HISTORY: She is a former smoker. REVIEW OF SYSTEMS: A 14-point review of systems was reviewed in detail. No cardiac symptomatology i s noted. PHYSICAL EXAMINATION: VITAL SIGNS: The blood pressure is 126/81, the heart rate is in the 80s. NECK: Negative JVD. LUNGS: Without rales. HEART: Reveals S1, S2, without murmurs or gallops. EXTREMITIES: Without edema. EKG is unremarkable. LABORATORIES: Hemoglobin is 9.9 which is baseline. Chemistries reveal elevated LFTs. Troponin is n egative x 1. IMPRESSION: 1. Syncope secondary to an inadvertent excess medications with painkillers after dental work. 2. History of depression. 3. Anemia. 4. Elevated liver function tests. 5. No cardiac cause of her syncope noted. Given these findings, I have discussed with the patient about the dangers of increasing her own pain medication dosage mixing with her psychiatric medications. The patient seems to understand. No further cardiac workup is necessary. We will discontinue telemetry today. Davon Gallagher MD cc: [id number] TT: 10/10/2016 09:30:08 Confirmation # [id number] Dictation # [id number]
--- NOTE | 2016-10-10 09:39 | RAD ---
HISTORY: Syncope COMPARISON: 09/20/2016. FINDINGS: LUNGS: The lungs are well inflated and clear.. PLEURA: No significant pleural effusion identified, no pneumothorax apparent. CARDIOVASCULAR: Normal. OSSEOUS STRUCTURES: No significant abnormalities. VISUALIZED UPPER ABDOMEN: Normal. OTHER FINDINGS: None. IMPRESSION: No active pulmonary disease.
[2016-10-10] MEDS ORDERED: Non Formulary Medication (Venlafaxine [Effexor Xr] 150 MG) PO SCH (10:00)
[2016-10-10] MEDS: Venlafaxine 75 mg ER Cap PO SCH (10:12)
[2016-10-10] MEDS: Pantoprazole 40 mg EC Tab PO SCH (10:12)
[2016-10-10] MEDS: POLYETHYLENE GLYCOL 3350 17 GM/Dose PACKET PO SCH ×2 (10:13→17:08)
[2016-10-10] MEDS: Enoxaparin 40 mg Syringe SC SCH (10:15)
--- NOTE | 2016-10-10 14:01 | US ---
HISTORY: Elevated LFTs COMPARISON: None. TECHNIQUE: Grayscale imaging was performed. FINDINGS: LIVER: Measures 13.6 cm. There is diffuse increased echogenicity of the liver parenchyma. No mass. No intrahepatic bile duct dilatation. GALLBLADDER: Surgically absent. COMMON BILE DUCT: Dilated and measures 9.0 mm. PANCREAS: Unremarkable as visualized. No mass. No ductal dilatation. RIGHT KIDNEY: Measures 9.2cm. Normal echogenicity. No calculus, mass, or hydronephrosis. LEFT KIDNEY: Measures 9.1cm. Normal echogenicity. No calculus, mass, or hydronephrosis. SPLEEN: Normal in size and contour. No mass. AORTA: No aneurysmal dilatation. IVC: Unremarkable. OTHER FINDINGS: None. IMPRESSION: Diffuse increased echogenicity in the liver may reflect hepatic steatosis however parenchymal infectious/ inflammatory etiologies cannot be entirely excluded. Clinical and laboratory correlation is advised. Status post cholecystectomy, mild dilatation of the common bile duct is in keeping with postcholecystectomy status.
--- NOTE | 2016-10-10 14:03 | US ---
PROCEDURE: HISTORY: r/o budd-chiari/HV/PV thrombosis COMPARISON: None available. TECHNIQUE: Duplex Doppler examination. FINDINGS: The aorta and IVC are normal in appearance. There is normal direction of flow and spectral waveform in the hepatic and portal veins, and hepatic artery. The splenic vein is not visualized due to excessive bowel gas. OTHER FINDINGS: None. IMPRESSION: Normal spectral waveform and direction of flow in the hepatic and portal veins and hepatic artery. The splenic vein age not visualized due to excessive bowel gas.
--- NOTE | 2016-10-10 14:26 | CP.PCM.CON ---
History of Present Illness - History of Present Illness History of Present Illness: Asked for a GI consultation on this patient CC: syncope HPI: 51 yo female with PMHx significant for PUD s/p Billroth 2 gastrojejunostomy and vagotomy complicated by gastroparesis, LA class C esophagitis, medication induced (Januvia) pancreatitis, DMT2, DVT who presents to hospital with complaint of syncope. The patient states that she was in her usual state of health until yesterday when she had syncopal episode after having dental work. She reports taking tylenol containing opiate medication (4-5 pills) after the dental work and then had grogginess/syncopized. She states that her gastroparesis symptoms have mainly been controlled with diet. She does note that they are aggravated around psychosocial stressors and does admit that when he was in psych unit these symptoms almost completely dissipated. Of note, the patient has also been taking fioricet 2-3x/day for migraines over the past few weeks. She currently feels better, mild chronic abdominal pain. She denies any nausea or vomiting with liquids. No diarrhea. She is well known to our GI team and has had multiple hospitalizations recently , mainly for gastroparesis. She has history of abnormal LFTs with extensive work up including liver biopsy. PSHx: Billroth 2 and vagotomy, Right ankle, Right meniscus repair FHx: Mother - HTN, DM; Father - Prostate/lung cancer, CAD Social: Quit smoking 5 months ago, denies EtOH or illicit drug use Endo: 04/07/16 - EGD/ERCP - LA Class C esophagitis, duodenal diverticula, patent Billroth 2, debris removed from CBD Review of Systems - Constitutional Constitutional: absent: Chills, Fever - Cardiovascular Cardiovascular: absent: Chest Pain, Dyspnea - Respiratory Respiratory: absent: Cough - Gastrointestinal Gastrointestinal: As Per HPI - Genitourinary Genitourinary: absent: Difficulty Urinating, Dysuria - Musculoskeletal Musculoskeletal: absent: Back Pain - Integumentary Integumentary: absent: Pruritus, Rash - Endocrine Endocrine: absent: Fatigue Past Patient History - Infectious Disease Hx of Infectious Diseases: None - Tetanus Immunizations Tetanus Immunization: Unknown - Past Medical History & Family History Past Medical History?: Yes - Past Social History Smoking Status: Never Smoked - CARDIAC Hx Cardiac Disorders: Yes Hx Hypertension: Yes - PULMONARY Hx Respiratory Disorders: Yes Hx Pneumonia: Yes Hx Tuberculosis: No - NEUROLOGICAL Hx Neurological Disorder: Yes HX Cerebrovascular Accident: No Hx Seizures: Yes - HEENT Hx HEENT Problems: No - RENAL Hx Chronic Kidney Disease: No - ENDOCRINE/METABOLIC Hx Endocrine Disorders: No Hx Diabetes Mellitus Type 2: Yes (Borderline) - HEMATOLOGICAL/ONCOLOGICAL Hx Blood Disorders: No Hx Cancer: No - INTEGUMENTARY Hx Dermatological Problems: No - MUSCULOSKELETAL/RHEUMATOLOGICAL Hx Falls: Yes - GASTROINTESTINAL Hx Gastrointestinal Disorders: Yes Hx Gastroesophageal Reflux: Yes Other/Comment: Gastroparesis. Gastric ulcer removed - GENITOURINARY/GYNECOLOGICAL Hx Genitourinary Disorders: No Hx Sexually Transmitted Disorders: No - PSYCHIATRIC Hx Psychophysiologic Disorder: Yes Hx Anxiety: Yes Hx Depression: Yes Hx Physical Abuse: No Hx Sexual Abuse: No - SURGICAL HISTORY Hx Cholecystectomy: Yes Hx Gastric Bypass Surgery: Yes (2013) - ANESTHESIA Hx Anesthesia: Yes Hx Anesthesia Reactions: No Hx Malignant Hyperthermia: No Meds Allergies/Adverse Reactions: Allergies Allergy/AdvReac Type Severity Reaction Status Date / Time Penicillins Allergy Intermediate HIVES Verified 09/29/16 00:08 naproxen [From Naprosyn] Allergy NAUSEA Verified 09/29/16 00:08 compazine Allergy Intermediate muscle Uncoded 09/29/16 00:08 stiffening - Medications Medications: Current Medications Clonazepam (Klonopin) 2 mg PO TID [facility] Last Admin: 10/10/16 10:12 Dose: 2 mg Docusate Sodium (Colace) 100 mg PO BID [facility] Last Admin: 10/10/16 10:11 Dose: 100 mg Enoxaparin Sodium (Lovenox) 40 mg SC DAILY [facility] PRN Reason: Protocol Last Admin: 10/10/16 10:15 Dose: Not Given Hydromorphone HCl (Dilaudid) 0.125 mg IVP Q4H PRN PRN Reason: Pain, moderate (4-7) Last Admin: 10/10/16 08:22 Dose: 0.125 mg Hydromorphone HCl (Dilaudid) 0.25 mg IVP Q4H PRN PRN Reason: Pain, severe (8-10) Last Admin: 10/10/16 11:06 Dose: 0.25 mg Levetiracetam (Keppra) 500 mg PO BID [facility] Last Admin: 10/10/16 10:12 Dose: 500 mg Mirtazapine (Remeron) 45 mg PO HS [facility] Ondansetron HCl (Zofran Odt) 4 mg PO Q4H PRN PRN Reason: Nausea/Vomiting Last Admin: 10/10/16 11:07 Dose: 4 mg Pantoprazole Sodium (Protonix Ec Tab) 40 mg PO DAILY [facility] Last Admin: 10/10/16 10:12 Dose: 40 mg Polyethylene Glycol (Miralax) 17 gm PO BID [facility] Last Admin: 10/10/16 10:13 Dose: 17 gm Quetiapine Fumarate (Seroquel) 50 mg PO [facility] Venlafaxine HCl (Effexor Xr) 225 mg PO DAILY [facility] Last Admin: 10/10/16 10:12 Dose: 225 mg Physical Exam - Constitutional Appears: No Acute Distress, Chronically Ill - Eye Exam Eye Exam: absent: Scleral icterus - ENT Exam ENT Exam: Mucous Membranes Moist - Respiratory Exam Respiratory Exam: Clear to Auscultation Bilateral - GI/Abdominal Exam Additional comments: abdomen soft, non tender to palpation, no rebound or guarding, bowel sounds present - Extremities Exam Extremities exam: Negative for: pedal edema - Back Exam Back exam: absent: CVA tenderness (L), CVA tenderness (R) - Neurological Exam Neurological exam: Alert, Oriented x3 - Skin Skin Exam: Dry Results - Vital Signs Recent Vital Signs: Last Vital Signs Temp 99.4 F 10/10/16 12:00 Pulse 104 H 10/10/16 12:00 Resp 20 10/10/16 12:00 BP 121/72 10/10/16 12:00 Pulse Ox 99 10/10/16 05:24 - Labs Result Diagrams: 10/10/16 06:15 10/10/16 06:15 Labs: Laboratory Results - last 24 hr 10/10/16 06:15 WBC 4.3 L RBC 3.76 Hgb 9.9 L Hct 30.9 L MCV 82.2 MCH 26.3 MCHC 32.0 RDW 15.7 H Plt Count 230 MPV 9.6 Gran % 60.1 Lymph % (Auto) 30.1 [place] % (Auto) 7.7 H Eos % (Auto) 1.9 Baso % (Auto) 0.2 Gran # 2.57 Lymph # 1.3 [place] # 0.3 Eos # 0.1 Baso # 0.01 Sodium 141 Potassium 4.1 Chloride 105 Carbon Dioxide 24 Anion Gap 16 BUN 25 H Creatinine 1.0 Est GFR ( Amer) > 60 Est GFR (Non-Af Amer) 58 Random Glucose 100 Calcium 8.8 Total Bilirubin 0.2 AST 153 H ALT 168 H Alkaline Phosphatase 136 H Total Protein 6.8 Albumin 3.8 Globulin 3.0 Albumin/Globulin Ratio 1.3 Salicylates < 1 L Acetaminophen < 10.0 L Assessment & Plan - Assessment and Plan (Free Text) Assessment: This is a 51yo female with PMHx significant for PUD s/p Billroth 2 gastrojejunostomy and vagotomy complicated by gastroparesis, LA class C esophagitis, medication induced (Januvia) pancreatitis, DMT2, DVT who is admitted with possible syncopal episode. She is noted to have abnormal LFTs, which are likely drug induced in setting of increasing amounts of acetaminophen over the past 1 month (fioricet and recently narco). Plan: Continue supportive care PPI Antiemetic therapy as needed Monitor LFTs Avoid hepatotoxic agents Prior extensive LFT work up including liver biopsy Abd sono ordered by primary service, will follow up Advised re: small frequent meals, minimize narcotics Advance diet as tolerated D/w primary medical team
--- NOTE | 2016-10-10 14:57 | CARD ---
APPROVED REPORT EKG Measurement Heart [id number] <Conclusion> Normal sinus rhythm Normal ECG
--- NOTE | 2016-10-10 15:07 | CON ---
DATE: 10/10/2016 CHIEF COMPLAINT: Syncope. HISTORY OF PRESENT ILLNESS: This is a 51-year-old woman who is well known to us with history of none pileptic seizures/occasional questionable epileptic seizures on Keppra, history of peptic ulcer disea se, status post Billroth II, status post gastrectomy and vagotomy which is followed by a complication of gastroparesis, history of anxiety, history of hypertension, history of chronic back pain, chronic pain syndrome with history of herniated disks, on chronic opiates, history of syncope secondary to c erebral hypoperfusion in the past, history of anxiety, history of DVT who presented to the hospital f or syncopal episode. Apparently, she was overwhelmed during an argument with her daughter and had pa ssed out. She cannot remember how many pills of oxycodone she took. The patient says she took the p ain meds at 2:00 p.m. on 10/09/2016. She had an argument with her daughter, she vomited and saw some undigested food with some pill fragments and then was raising her voice and passed out. Currently, s he is sitting up in bed in no acute distress. She is asking for more pain meds. She denies any gutierrez ge in sense of vision, taste or smell or headaches at this time. She is on Keppra 500 mg p.o. b.i.d. for seizure prophylaxis. She is getting Dilaudid IV q. 4 hours p.r.n. for underlying chronic pain s yndrome. CT head showed no acute intracranial abnormality. PAST MEDICAL HISTORY: History of peptic ulcer disease, status post Billroth II gastrectomy/vagotomy, complicated by gastroparesis, history of nonepileptic seizures/questionable epileptic seizures on Ke ppra, history of anxiety, hypertension, migraines, chronic fatigue, chronic pain syndrome, chronic ba ck pain and is on opiates. REVIEW OF SYSTEMS: A 14-point review of systems is negative except as in HPI. SOCIAL HISTORY: No illicit drug use, smoking, or ETOH abuse. ALLERGIES: PENICILLIN, NAPROXEN, COMPAZINE. FAMILY HISTORY: Noncontributory. PHYSICAL EXAMINATION: VITAL SIGNS: Temperature 99, pulse rate of 90, blood pressure of 121/72, respiratory rate of 16, oxy gen saturation 99% on room air. GENERAL: The patient is sitting up in bed in no acute distress. HEENT: Atraumatic, normocephalic. PERRLA. Extraocular muscles intact. NECK: Supple, no JVD, no adenopathy noted. LUNGS: Clear to auscultation. No adventitious sounds. HEART: S1, S2, normal rate and rhythm. No murmurs, rubs, or gallops. ABDOMEN: Soft, nontender, nondistended. Bowel sounds are present. EXTREMITIES: No clubbing, no cyanosis. Peripheral pulses 2+ felt bilaterally. NEUROLOGIC: The patient has a flat affect and anxious looking; otherwise, patient is alert, oriented to person, place, month and year. Speech is fluent, without any errors. Cranial nerves II through XII are intact. MOTOR: Moves all extremities equally. Normal strength. No pronator drift seen. SENSORY: Light touch, pinprick, proprioception, vibration intact. DEEP TENDON REFLEXES: 1+ throughout. COORDINATION: Fibscw-ha-cwzp intact. GAIT: Deferred for now. LABORATORIES: Sodium is 141, potassium 4.1, chloride 105, carbon dioxide 24, BUN of 25, creatinine 1 . Random glucose of 100. ASSESSMENT AND PLAN: This is a 51-year-old woman with history of deep venous thrombosis in the past, was on Coumadin, was stopped 3 years ago, history of peptic ulcer disease, status post Billroth II g astrectomy/vagotomy, complicated by gastroparesis, history of nonepileptic seizures/questionable seiz ures, on Keppra 500 p.o. b.i.d., history of hypertension, anxiety, history of chronic pain syndrome, history of chronic back pain on multiple opiates, history of anxiety and depression, who came from a syncopal event after having a heated argument with her daughter as well as she was taking a lot of ex tra oxycodone pills which resulted in a syncopal episode. Her syncope is likely secondary to a vasov agal component with a psychogenic component and in addition to excess medication like painkillers. A t this time, recommend to: 1. Continue with her Keppra 500 mg p.o. b.i.d. for seizure prophylaxis. 2. Keep blood pressure between 120 and 130 mmHg. 3. Avoid overuse of opiates in this patient since the patient has had syncopal episodes and keeps co adwoa in for syncopal episodes. 4. Continue Klonopin 2 mg p.o. t.i.d. for underlying anxiety. 5. Continue with her Effexor XR 225 p.o. daily for underlying anxiety and depression. At this time, continue with current present medical management. No further neurological workup needed at this trudy e. Will sign off. Abel Montes MD cc: [id number] TT: 10/10/2016 15:07:20 Confirmation # [id number] Dictation # [id number] brisa
--- NOTE | 2016-10-10 16:39 | US ---
PROCEDURE: Bilateral carotid artery duplex US HISTORY: Carotid stenosis syncope PHYSICIAN(S): Davon Hill MD. TECHNIQUE: Duplex sonography and color-flow Doppler were used to evaluate the carotid bifurcations and limited segments of the vertebral arteries bilaterally. FINDINGS: There is mild smooth heterogeneous plaque noted at the carotid bifurcations bilaterally. The peak systolic velocity in the proximal right internal carotid artery is 98 cm/sec. This corresponds to a 20 to 39% proximal right ICA stenosis. Normal systolic velocities are noted in the proximal right external carotid artery. There is antegrade flow in the right vertebral artery. The peak systolic velocity in the proximal left internal carotid artery is 80 cm/sec. This corresponds to a 20 to 39% proximal left ICA stenosis. Normal systolic velocities are noted in the proximal left external carotid artery. There is antegrade flow in the left vertebral artery. IMPRESSION: 1. Bilateral 20-39% proximal ICA stenoses. 2. Antegrade flow in both vertebral arteries.
--- NOTE | 2016-10-10 17:40 | CP.PCM.PCO ---
Physician Communication Note - Physician Communication Note Physician Communication Note: No further Cardiac workup necessary. Avoid Hepatotoxic drugs.
[2016-10-11] MEDS: HYDROmorphone 0.5 mg/0.5 ml ISec IVP PRN ×4 (02:58→15:28)
[2016-10-11 07:32] LABS: ADD MANUAL DIFF? NO
[2016-10-11 07:35] LABS: BASO # 0.02 K/mm3 (0.0-2.0); BASO % 0.4 % (0.0-3.0); EOS # 0.2 (0.0-0.7); EOS % 4.5 % (1.5-5.0); GRAN % 36.9 % (50.0-68.0); HEMATOCRIT 32.4 % (36.0-48.0); LYMPH # 2.5 (1.2-3.4); LYMPH % 48.9 % (22.0-35.0); MEAN CORPUSCULAR HEMOGLOBIN 25.8 pg (25.0-35.0); MEAN CORPUSCULAR HGB CONC 31.5 g/dl (31.0-37.0); MEAN PLATELET VOLUME 9.7 fl (7.0-11.0); MONO # 0.5 (0.1-0.6); MONO % 9.3 % (1.0-6.0); PLATELET COUNT 233 10^3/uL (120.0-450.0); RED CELL DISTRIBUTION WIDTH 15.5 % (11.5-14.5); WHITE BLOOD COUNT 5.2 10^3/ul (4.5-11.0)
[2016-10-11 08:07] VITALS: RESP 18
[2016-10-11 08:14] LABS: ALB/GLOB RATIO 1.1 (1.1-1.8); ALKALINE PHOSPHATASE 116 U/L (38-133); ALT/SGPT 117 U/L (7-56); AST/SGOT 68 U/L (15-39); BILIRUBIN,TOTAL 0.4 mg/dL (0.2-1.3); BLOOD UREA NITROGEN 19 mg/dL (7-21); CALCIUM 8.6 mg/dL (8.4-10.5); CARBON DIOXIDE 20 mmol/L (21-33); CHLORIDE 104 mmol/L (98-107); GFR AFRICAN-AMERICAN > 60; GLUCOSE,RANDOM 108 mg/dL (70-110); POTASSIUM 4.5 mmol/L (3.6-5.0); SODIUM 137 mmol/L (132-148); TOTAL PROTEIN 6.7 g/dL (5.8-8.3)
[2016-10-11] MEDS: Venlafaxine 75 mg ER Cap PO SCH (09:01)
[2016-10-11] MEDS: Enoxaparin 40 mg Syringe SC SCH (09:02)
[2016-10-11] MEDS: POLYETHYLENE GLYCOL 3350 17 GM/Dose PACKET PO SCH (09:02)
[2016-10-11] MEDS: Pantoprazole 40 mg EC Tab PO SCH (09:02)
--- NOTE | 2016-10-11 12:27 | RAD ---
PROCEDURE: Cervical Spine Radiographs. HISTORY: Pain. COMPARISON: 01/06/2016 FINDINGS: BONES: There is mild levocurvature in the cervical spine. There is 2 mm degenerative retrolisthesis of C5 on C6. Vertebral height is normal. There is diffuse bone demineralization. There is no acute fracture or bone destruction. The craniocervical junction is normal. There is moderate degenerative osteoarthrosis in the atlantoaxial joint. DISC SPACES: There is multilevel degenerative disc disease with anterior spurring, reduced disc heights and multilevel facet arthropathy, worse at C5-6. SOFT TISSUES: Normal. No prevertebral soft tissue swelling. OTHER FINDINGS: No apical pneumothorax. IMPRESSION: No acute fracture or traumatic anterior listhesis. Multilevel degenerative disc disease, worse at C5-6.
--- NOTE | 2016-10-11 12:52 | CP.PCM.DIS ---
<Jose Fowler - Last Filed: 10/11/16 12:31> Provider - Provider Date of Admission: 10/10/16 04:46 Attending physician: Vikram Oh MD Consults: GI - Dr. Barakat Cardio - Dr. Gallagher Neuro - Dr. Montes Time Spent in preparation of Discharge (in minutes): 45 Diagnosis - Discharge Diagnosis (1) Colitis Status: Acute Priority: Low (2) Ileus Status: Acute Priority: Low (3) Syncope Status: Acute Priority: Medium (4) Abdominal pain Status: Chronic Priority: Medium (5) Anxiety Status: Acute Priority: Medium (6) Seizure Status: Chronic Priority: Medium Hospital Course - Lab Results Lab Results: Most Recent Lab Values WBC 5.2 10^3/ul (4.5-11.0) D 10/11/16 07:20 RBC 3.95 10^6/uL (3.5-6.1) 10/11/16 07:20 Hgb 10.2 gm/dL (12.0-16.0) L 10/11/16 07:20 Hct 32.4 % (36.0-48.0) L 10/11/16 07:20 MCV 82.0 fL (80.0-105.0) 10/11/16 07:20 MCH 25.8 pg (25.0-35.0) 10/11/16 07:20 MCHC 31.5 g/dl (31.0-37.0) 10/11/16 07:20 RDW 15.5 % (11.5-14.5) H 10/11/16 07:20 Plt Count 233 10^3/uL (120.0-450.0) 10/11/16 07:20 MPV 9.7 fl (7.0-11.0) 10/11/16 07:20 Gran % 36.9 % (50.0-68.0) L 10/11/16 07:20 Lymph % (Auto) 48.9 % (22.0-35.0) H 10/11/16 07:20 [place] % (Auto) 9.3 % (1.0-6.0) H 10/11/16 07:20 Eos % (Auto) 4.5 % (1.5-5.0) 10/11/16 07:20 Baso % (Auto) 0.4 % (0.0-3.0) 10/11/16 07:20 Gran # 1.90 (1.4-6.5) 10/11/16 07:20 Lymph # 2.5 (1.2-3.4) 10/11/16 07:20 [place] # 0.5 (0.1-0.6) 10/11/16 07:20 Eos # 0.2 (0.0-0.7) 10/11/16 07:20 Baso # 0.02 K/mm3 (0.0-2.0) 10/11/16 07:20 Sodium 137 mmol/L (132-148) 10/11/16 07:20 Potassium 4.5 mmol/L (3.6-5.0) 10/11/16 07:20 Chloride 104 mmol/L (98-107) 10/11/16 07:20 Carbon Dioxide 20 mmol/L (21-33) L 10/11/16 07:20 Anion Gap 18 (10-20) 10/11/16 07:20 BUN 19 mg/dL (7-21) 10/11/16 07:20 Creatinine 0.9 mg/dL (0.5-1.4) 10/11/16 07:20 Est GFR ( Amer) > 60 10/11/16 07:20 Est GFR (Non-Af Amer) > 60 10/11/16 07:20 Random Glucose 108 mg/dL (70-110) 10/11/16 07:20 Calcium 8.6 mg/dL (8.4-10.5) 10/11/16 07:20 Total Bilirubin 0.4 mg/dL (0.2-1.3) 10/11/16 07:20 AST 68 U/L (15-39) H 10/11/16 07:20 ALT 117 U/L (7-56) H 10/11/16 07:20 Alkaline Phosphatase 116 U/L (38-133) 10/11/16 07:20 Lactate Dehydrogenase 820 U/L (333-699) H 10/10/16 00:45 Total Creatine Kinase 173 U/L (35-230) 10/10/16 00:45 Troponin I < 0.01 ng/mL 10/10/16 00:45 Total Protein 6.7 g/dL (5.8-8.3) 10/11/16 07:20 Albumin 3.5 g/dL (3.0-4.8) 10/11/16 07:20 Globulin 3.2 gm/dL 10/11/16 07:20 Albumin/Globulin Ratio 1.1 (1.1-1.8) 10/11/16 07:20 Salicylates < 1 mg/dL (2.0-20.0) L 10/10/16 06:15 Acetaminophen < 10.0 ug/ml (10.0-20.0) L 10/10/16 06:15 - Hospital Course Hospital Course: 51 y/o F with PMH of seizures on Keppra, gastroparesis, chronic back pain, anxiety, depression, GERD, migraines, PUD, and DVT presents to the Emergency department via EMS s/p syncopal episode. She reports she became overwhelmed during an argument with her daughter and passed out. Patient states she cannot remember taking how many pills today. However, she had a pill bottle with 4 oxycodone out of 16 left which were filled today. Then argument with daughter, vomit, saw undigested food and pills fragments. Then during the argument, with raised voice, passed out. On admission, Troponins were negative. LFTs were found to be elevated. Pt seen by GI, Dr. Barakat who recommends avoiding hepatotoxic medications, small meals, and minimizing narcotic use. Pt had extensive LFT workup on recent prior admissions. Additionally, pt had Abdomen US, Head CT, and Carotid artery US which were all within normal limits. Cervical spine x-ray shows no acute changes , but widespread degeneration, in particularly in between C5-6. Pt seen by cardio, Dr. Gallagher, and neuro, Dr. Montes, who both agreed syncopal episode was due to taking too many pain meds. Pt advised to avoid creating her own pain regimen. Discharge Exam - Head Exam Head Exam: ATRAUMATIC, NORMOCEPHALIC - ENT Exam ENT Exam: Mucous Membranes Moist, Normal Exam - Respiratory Exam Respiratory Exam: NORMAL BREATHING PATTERN, UNREMARKABLE - Cardiovascular Exam Cardiovascular Exam: RRR, +S1, +S2 - GI/Abdominal Exam GI & Abdominal Exam: Normal Bowel Sounds, Soft. absent: Tenderness - Extremities Exam Extremities exam: normal inspection - Neurological Exam Neurological exam: Alert, Oriented x3 - Psychiatric Exam Psychiatric exam: Normal Affect, Normal Mood - Skin Skin Exam: Intact, Normal Color, Warm Discharge Plan - Discharge Medications Prescriptions: Venlafaxine [Effexor XR] 225 mg PO DAILY #7 cer levETIRAcetam [Keppra] 500 mg PO BID #14 tab clonazePAM [Klonopin] 2 mg PO TID #21 tab Pantoprazole [Protonix EC Tab] 40 mg PO DAILY #7 ect Mirtazapine [Remeron] 45 mg PO HS #7 tab QUEtiapine [Seroquel] 50 mg PO HS #7 tab - Follow Up Plan Condition: GOOD Disposition: HOME/ ROUTINE Instructions: Syncope (DC), Syncope (GEN), Diabetes Mellitus Type 2 in Adults ( DC), Recurrent Seizures in Adults (DC), Fall Prevention (DC) Additional Instructions: Follow up with PMD within 1 week. Take pain medication as prescribed. <Althea MAIN,Vikram - Last Filed: 10/11/16 15:34> Provider - Provider Date of Admission: 10/10/16 04:46 Attending physician: Vikram Oh MD Hospital Course - Lab Results Lab Results: Most Recent Lab Values WBC 5.2 10^3/ul (4.5-11.0) D 10/11/16 07:20 RBC 3.95 10^6/uL (3.5-6.1) 10/11/16 07:20 Hgb 10.2 gm/dL (12.0-16.0) L 10/11/16 07:20 Hct 32.4 % (36.0-48.0) L 10/11/16 07:20 MCV 82.0 fL (80.0-105.0) 10/11/16 07:20 MCH 25.8 pg (25.0-35.0) 10/11/16 07:20 MCHC 31.5 g/dl (31.0-37.0) 10/11/16 07:20 RDW 15.5 % (11.5-14.5) H 10/11/16 07:20 Plt Count 233 10^3/uL (120.0-450.0) 10/11/16 07:20 MPV 9.7 fl (7.0-11.0) 10/11/16 07:20 Gran % 36.9 % (50.0-68.0) L 10/11/16 07:20 Lymph % (Auto) 48.9 % (22.0-35.0) H 10/11/16 07:20 [place] % (Auto) 9.3 % (1.0-6.0) H 10/11/16 07:20 Eos % (Auto) 4.5 % (1.5-5.0) 10/11/16 07:20 Baso % (Auto) 0.4 % (0.0-3.0) 10/11/16 07:20 Gran # 1.90 (1.4-6.5) 10/11/16 07:20 Lymph # 2.5 (1.2-3.4) 10/11/16 07:20 [place] # 0.5 (0.1-0.6) 10/11/16 07:20 Eos # 0.2 (0.0-0.7) 10/11/16 07:20 Baso # 0.02 K/mm3 (0.0-2.0) 10/11/16 07:20 Sodium 137 mmol/L (132-148) 10/11/16 07:20 Potassium 4.5 mmol/L (3.6-5.0) 10/11/16 07:20 Chloride 104 mmol/L (98-107) 10/11/16 07:20 Carbon Dioxide 20 mmol/L (21-33) L 10/11/16 07:20 Anion Gap 18 (10-20) 10/11/16 07:20 BUN 19 mg/dL (7-21) 10/11/16 07:20 Creatinine 0.9 mg/dL (0.5-1.4) 10/11/16 07:20 Est GFR ( Amer) > 60 10/11/16 07:20 Est GFR (Non-Af Amer) > 60 10/11/16 07:20 Random Glucose 108 mg/dL (70-110) 10/11/16 07:20 Calcium 8.6 mg/dL (8.4-10.5) 10/11/16 07:20 Total Bilirubin 0.4 mg/dL (0.2-1.3) 10/11/16 07:20 AST 68 U/L (15-39) H 10/11/16 07:20 ALT 117 U/L (7-56) H 10/11/16 07:20 Alkaline Phosphatase 116 U/L (38-133) 10/11/16 07:20 Lactate Dehydrogenase 820 U/L (333-699) H 10/10/16 00:45 Total Creatine Kinase 173 U/L (35-230) 10/10/16 00:45 Troponin I < 0.01 ng/mL 10/10/16 00:45 Total Protein 6.7 g/dL (5.8-8.3) 10/11/16 07:20 Albumin 3.5 g/dL (3.0-4.8) 10/11/16 07:20 Globulin 3.2 gm/dL 10/11/16 07:20 Albumin/Globulin Ratio 1.1 (1.1-1.8) 10/11/16 07:20 Salicylates < 1 mg/dL (2.0-20.0) L 10/10/16 06:15 Acetaminophen < 10.0 ug/ml (10.0-20.0) L 10/10/16 06:15 Attending/Attestation - Attestation I have personally seen and examined this patient.: Yes I have fully participated in the care of the patient.: Yes I have reviewed all pertinent clinical information, including history, physical exam and plan: Yes Notes (Text): Patient was seen and examined with medical office representative .Agreed with resident assessment and plan. 51yo female with PMHx significant for PUD s/p Billroth 2 gastrojejunostomy and vagotomy complicated by gastroparesis, LA class C esophagitis, medication induced (Januvia) pancreatitis, DMT2, DVT who is admitted with possible syncopal episode. She is noted to have abnormal LFTs, which are likely drug induced in setting of increasing amounts of acetaminophen over the past 1 month (fioricet and recently narco).Patient LFT are improving.She was evaluated by cardiology,Neurology and GI, no further work was recommended.Patient is at her base line.She was advised not to take any tylenol.She will follow up with PCP and GI as out patient.She is tolerating diet at the time of discharge. Management plan was discussed in detail with patient Education was provided.
--- NOTE | 2016-10-11 13:39 | CP.PCM.PN ---
<Ki Landaverde - Last Filed: 10/11/16 13:35> Subjective - Date & Time of Evaluation Date of Evaluation: 10/11/16 Time of Evaluation: 07:30 - Subjective Subjective: PGY4 GI Fellow Progress Note - LATE entry Patient seen and examined bedside this morning. She denies any complaints presently and is noted to have eaten breakfast without issue. She denies any abdominal pain, nausea, vomiting. No episodes of dizziness, lightheadedness at this time. 12 system ROS performed and negative except where stated. Objective - Vital Signs/Intake and Output Vital Signs (last 24 hours): Temp Pulse Resp BP Pulse Ox 98.3 F 82 18 109/68 97 10/11/16 08:00 10/11/16 08:00 10/11/16 08:00 10/11/16 08:00 10/11/16 08:00 Intake and Output: 10/11/16 10/11/16 06:59 18:59 Intake Total 960 Balance 960 - Medications Medications: Current Medications Clonazepam (Klonopin) 2 mg PO TID [facility] Last Admin: 10/11/16 13:12 Dose: 2 mg Docusate Sodium (Colace) 100 mg PO BID [facility] Last Admin: 10/11/16 09:01 Dose: 100 mg Enoxaparin Sodium (Lovenox) 40 mg SC DAILY [facility] PRN Reason: Protocol Last Admin: 10/11/16 09:02 Dose: 40 mg Hydromorphone HCl (Dilaudid) 0.125 mg IVP Q4H PRN PRN Reason: Pain, moderate (4-7) Last Admin: 10/10/16 08:22 Dose: 0.125 mg Hydromorphone HCl (Dilaudid) 0.25 mg IVP Q4H PRN PRN Reason: Pain, severe (8-10) Last Admin: 10/11/16 11:03 Dose: 0.25 mg Ketorolac Tromethamine (Toradol) 15 mg IVP Q6 PRN PRN Reason: Pain, moderate (4-7) Stop: 10/12/16 14:37 Levetiracetam (Keppra) 500 mg PO BID [facility] Last Admin: 10/11/16 09:01 Dose: 500 mg Mirtazapine (Remeron) 45 mg PO [facility] Last Admin: 10/10/16 21:51 Dose: 45 mg Ondansetron HCl (Zofran Odt) 4 mg PO Q4H PRN PRN Reason: Nausea/Vomiting Last Admin: 10/11/16 11:03 Dose: 4 mg Pantoprazole Sodium (Protonix Ec Tab) 40 mg PO DAILY [facility] Last Admin: 10/11/16 09:02 Dose: 40 mg Polyethylene Glycol (Miralax) 17 gm PO BID [facility] Last Admin: 10/11/16 09:02 Dose: 17 gm Quetiapine Fumarate (Seroquel) 50 mg PO HS [facility] Last Admin: 10/10/16 21:51 Dose: 50 mg Venlafaxine HCl (Effexor Xr) 225 mg PO DAILY [facility] Last Admin: 10/11/16 09:01 Dose: 225 mg - Labs Labs: 10/11/16 07:20 10/11/16 07:20 - Constitutional Appears: Non-toxic, No Acute Distress - Eye Exam Eye Exam: EOMI, PERRL - ENT Exam ENT Exam: Mucous Membranes Moist - Respiratory Exam Respiratory Exam: Clear to Ausculation Bilateral. absent: Rales, Rhonchi, Wheezes - Cardiovascular Exam Cardiovascular Exam: RRR, +S1, +S2 - GI/Abdominal Exam GI & Abdominal Exam: Soft, Normal Bowel Sounds. absent: Distended, Firm, Guarding, Rigid, Tenderness, Organomegaly - Extremities Exam Extremities Exam: Normal Inspection. absent: Pedal Edema - Neurological Exam Neurological Exam: Alert, Awake, Oriented x3 - Psychiatric Exam Psychiatric exam: Normal Affect, Normal Mood - Skin Skin Exam: Dry, Warm Assessment and Plan - Assessment and Plan (Free Text) Assessment: This is a 51yo female with PMHx significant for PUD s/p Billroth 2 gastrojejunostomy and vagotomy complicated by gastroparesis, LA class C esophagitis, medication induced (Januvia) pancreatitis, DMT2, DVT who is admitted with possible syncopal episode. -Abnormal LFTs -Syncope and collapse Plan: -Suspect DILI in the setting of therapeutic misadventure following use of [place]/ Fioricet -LFTs downtrending, continue to monitor, can be done as outpatient -No further recommendations at present <Kd Wahl - Last Filed: 10/11/16 14:21> Objective - Vital Signs/Intake and Output Vital Signs (last 24 hours): Temp Pulse Resp BP Pulse Ox 98.3 F 82 18 109/68 97 10/11/16 08:00 10/11/16 08:00 10/11/16 08:00 10/11/16 08:00 10/11/16 08:00 Intake and Output: 10/11/16 10/11/16 06:59 18:59 Intake Total 960 Balance 960 - Medications Medications: Current Medications Clonazepam (Klonopin) 2 mg PO TID [facility] Last Admin: 10/11/16 13:12 Dose: 2 mg Docusate Sodium (Colace) 100 mg PO BID [facility] Last Admin: 10/11/16 09:01 Dose: 100 mg Enoxaparin Sodium (Lovenox) 40 mg SC DAILY [facility] PRN Reason: Protocol Last Admin: 10/11/16 09:02 Dose: 40 mg Hydromorphone HCl (Dilaudid) 0.125 mg IVP Q4H PRN PRN Reason: Pain, moderate (4-7) Last Admin: 10/10/16 08:22 Dose: 0.125 mg Hydromorphone HCl (Dilaudid) 0.25 mg IVP Q4H PRN PRN Reason: Pain, severe (8-10) Last Admin: 10/11/16 11:03 Dose: 0.25 mg Ketorolac Tromethamine (Toradol) 15 mg IVP Q6 PRN PRN Reason: Pain, moderate (4-7) Stop: 10/12/16 14:37 Levetiracetam (Keppra) 500 mg PO BID [facility] Last Admin: 10/11/16 09:01 Dose: 500 mg Mirtazapine (Remeron) 45 mg PO HS [facility] Last Admin: 10/10/16 21:51 Dose: 45 mg Ondansetron HCl (Zofran Odt) 4 mg PO Q4H PRN PRN Reason: Nausea/Vomiting Last Admin: 10/11/16 11:03 Dose: 4 mg Pantoprazole Sodium (Protonix Ec Tab) 40 mg PO DAILY [facility] Last Admin: 10/11/16 09:02 Dose: 40 mg Polyethylene Glycol (Miralax) 17 gm PO BID [facility] Last Admin: 10/11/16 09:02 Dose: 17 gm Quetiapine Fumarate (Seroquel) 50 mg PO HS [facility] Last Admin: 10/10/16 21:51 Dose: 50 mg Venlafaxine HCl (Effexor Xr) 225 mg PO DAILY [facility] Last Admin: 10/11/16 09:01 Dose: 225 mg - Labs Labs: 10/11/16 07:20 10/11/16 07:20 Attending/Attestation - Attestation I have personally seen and examined this patient.: Yes I have fully participated in the care of the patient.: Yes I have reviewed all pertinent clinical information, including history, physical exam and plan: Yes Notes (Text): Patient seen and examined with GI fellow. Agree with his note as documented above with the following additions/exceptions. This is a 51yo female with PMHx significant for PUD s/p Billroth 2 gastrojejunostomy and vagotomy complicated by gastroparesis, LA class C esophagitis, medication induced (Januvia) pancreatitis, DMT2, DVT who is admitted with possible syncopal episode. She is noted to have abnormal LFTs, which are likely drug induced in setting of increasing amounts of acetaminophen over the past 1 month (fioricet and recently tylenol based opiate). Her LFTs are stable/improved. She is tolerating diet without incident and having bowel movements. Would continue supportive care. Avoid hepatotoxins. She will need outpatient follow up with Dr. Humphrey in 1-2 weeks for follow up of LFTs. 10/11/16 14:20
[2016-10-11 17:17] VITALS: BP 111/74; PULSE 85; TEMP 97.8; O2SAT 96
== END 2016-10-11 17:16 | disposition home or self-care (01) ==
LOC: ED 23:55 → ERH 10-10 03:00 → UNDOADMOB 10-10 04:46 → ERH 10-10 04:46 → 2RNO 10-10 05:26 → 5RNO 10-10 17:30 → UNDODISOB 10-11 17:16
PROVIDERS: ADMIT Internal Medicine; ATTEND Internal Medicine
DX: R55 Syncope and collapse (principal); K52.9 Noninfective gastroenteritis and colitis, unspecified; K56.7 Ileus, unspecified; F41.9 Anxiety disorder, unspecified; R56.9 Unspecified convulsions; I10 Essential (primary) hypertension; G89.29 Other chronic pain; M54.9 Dorsalgia, unspecified; K21.9 Gastro-esophageal reflux disease without esophagitis; Z88.0 Allergy status to penicillin; Z88.8 Allergy status to other drugs, medicaments and biological substances; F41.8 Other specified anxiety disorders; G43.909 Migraine, unspecified, not intractable, without status migrainosus; Z87.891 Personal history of nicotine dependence
CPT/HCPCS: 36415; 70450; 71010; 72040; 76700; 80053; 80074; 80329; 82390; 82550; 83615; 84484; 85025; 93005; 93880; 96372; 96374; 96375; 96376; 99285; G0378; J1170; J1650; J2405; J7040

== ENCOUNTER 2016-10-15 19:51 | Emergency (ER) | payer MEDICAID ==
[2016-10-15 19:52] VITALS: BMI 22.8
[2016-10-15 20:08] VITALS: TEMP 98.2; O2SAT 99
[2016-10-15] MEDS ORDERED: Sodium Chloride 0.9% 1,000 ML IV STA (20:14)
[2016-10-15 20:36] LABS: ADD MANUAL DIFF? NO
--- NOTE | 2016-10-15 20:36 | ED PDOC ---
Arrival/HPI - General Chief Complaint: GI Problem Time Seen by Provider: 10/15/16 20:07 - History of Present Illness Narrative History of Present Illness (Text): 51 y/o F c PMHx gastroparesis p/w abdominal pain, nausea, NBNB vomiting x 2 hours that she states is typical of her chronic gastroparesis pain. She denies fever, diarrhea, trauma, dysuria. Past Medical History - Infectious Disease Hx of Infectious Diseases: None - Tetanus Immunization Tetanus Immunization: Unknown - Past Medical History Past Medical History: No Previous - Cardiac Hx Cardiac Disorders: Yes Hx Hypertension: Yes - Pulmonary Hx Respiratory Disorders: Yes Hx Pneumonia: Yes Hx Tuberculosis: No - Neurological Hx Neurological Disorder: Yes HX Cerebrovascular Accident: No Hx Seizures: Yes - HEENT Hx HEENT Disorder: No - Renal Hx Renal Disorder: No - Endocrine/Metabolic Hx Endocrine Disorders: No Hx Diabetes Mellitus Type 2: Yes (Borderline) - Hematological/Oncological Hx Blood Disorders: No Hx Cancer: No - Integumentary Hx Dermatological Disorder: No - Musculoskeletal/Rheumatological Hx Falls: Yes - Gastrointestinal Hx Gastrointestinal Disorders: Yes Hx Gastroesophageal Reflux: Yes Other/Comment: Gastroparesis. Gastric ulcer removed - Genitourinary/Gynecological Hx Genitourinary Disorders: No Hx Sexually Transmitted Diseases: No - Psychiatric Hx Psychophysiologic Disorder: Yes Hx Anxiety: Yes Hx Depression: Yes Hx Physical Abuse: No Hx Sexual Abuse: No Hx Substance Use: No - Surgical History Hx Cholecystectomy: Yes Hx Gastric Bypass Surgery: Yes (2013) - Anesthesia Hx Anesthesia: Yes Hx Anesthesia Reactions: No Hx Malignant Hyperthermia: No - Suicidal Assessment Feels Threatened In Home Enviroment: No Family/Social History Family/Social History: No Known Family HX Smoking Status: Never Smoked Hx Alcohol Use: No Hx Substance Use: No Hx Substance Use Treatment: No Allergies/Home Meds Allergies/Adverse Reactions: Allergies Penicillins Allergy (Intermediate, Verified 10/15/16 19:58) HIVES morphine Allergy (Verified 10/15/16 19:58) ITCHING naproxen [From Naprosyn] Allergy (Verified 10/15/16 19:58) NAUSEA compazine Allergy (Intermediate, Uncoded 09/29/16 00:08) muscle stiffening Review of Systems - Physician Review All systems were reviewed & negative as marked: Yes - Review of Systems Constitutional: absent: Fevers Cardiovascular: absent: Chest Pain Physical Exam - Physical Exam Narrative Physical Exam (Text): Constitutional: No acute distress. Head: Normocephalic. Atraumatic. Eyes: PERRL. ENT: Moist mucous membranes. Neck: Supple. Cardiovascular: Regular rate. Chest: No tenderness. Respiratory: Clear to auscultation bilaterally. GI: Soft. No guarding or rebound. Back: No CVA tenderness. Musculoskeletal: No tenderness or swelling of extremities. Skin: No rash. Neurologic: Alert, no focal deficit. Vital Signs Temp Pulse Resp BP Pulse Ox 10/15/16 23:02 74 16 116/73 99 10/15/16 19:52 98.2 F 85 18 135/77 99 Medical Decision Making ED Course and Treatment: Patient treated with Zofran, Pepcid, IVF. Percocet also given at patient's request but did not give prescription due to chronic condition and patient already on prescribed narcotics. Unremarkable labs. Discharged home, f/u PMD, return to ER for worsening pain, fever, vomiting, dyspnea. - Lab Interpretations Lab Results: 10/15/16 20:25 10/15/16 20:25 Lab Results 10/15/16 20:25: WBC 6.8 D, RBC 3.56, Hgb 9.4 L, Hct 29.5 L, MCV 82.9, MCH 26.4 , MCHC 31.9, RDW 15.5 H, Plt Count 181, MPV 10.2, Gran % 46.3 L, Lymph % (Auto) 42.3 H, [place] % (Auto) 7.6 H, Eos % (Auto) 3.4, Baso % (Auto) 0.4, Gran # 3.16, Lymph # 2.9, [place] # 0.5, Eos # 0.2, Baso # 0.03, Sodium 136, Potassium 3.5 L, Chloride 104, Carbon Dioxide 18 L, Anion Gap 18, BUN 29 H, Creatinine 1.0, Est GFR ( Amer) > 60, Est GFR (Non-Af Amer) 58, Random Glucose 228 H, Calcium 8.3 L, Total Bilirubin 0.3, AST 29, ALT 59 H, Alkaline Phosphatase 82, Total Protein 6.4, Albumin 3.6, Globulin 2.9, Albumin/Globulin Ratio 1.2, Lipase 116, Urine Color Yellow, Urine Appearance Clear, Urine pH 5.5, Ur Specific [place] >= 1.030, Urine Protein Negative, Urine Glucose (UA) Negative, Urine Ketones Negative, Urine Blood Trace-intact H, Urine Nitrate Negative, Urine Bilirubin Negative, Urine Urobilinogen 0.2, Ur Leukocyte Esterase Small H , Urine RBC 1 - 3, Urine WBC 5 - 10, Ur Epithelial Cells 6 - 8, Amorphous Sediment Few, Urine Bacteria Many, Urine Other Uyeast, Urine HCG, Qual Negative - Medication Orders Current Medication Orders: Discontinued Medications Clonazepam (Klonopin) 2 mg PO STAT STA PRN Reason: Protocol Stop: 10/15/16 23:07 Last Admin: 10/15/16 23:20 Dose: 2 MG Behavioural Document 10/15/16 23:20 RD (Rec: 10/15/16 23:20 RD [id number]) Maintenance Maintenance Dose Yes Famotidine (Pepcid) 20 mg IVP STAT STA Stop: 10/15/16 20:15 Last Admin: 10/15/16 20:51 Dose: 20 MG IVP Administration Document 10/15/16 20:51 SF (Rec: 10/15/16 20:51 [email or web address] Charges for Administration # of IVP Administrations 1 Sodium Chloride (Sodium Chloride 0.9%) 1,000 mls @ 999 mls/hr IV .Q1H1M STA Stop: 10/15/16 21:14 Last Admin: 10/15/16 20:47 Dose: 999 MLS/HR eMAR Start Stop Document 10/15/16 20:47 RD (Rec: 10/15/16 20:48 RD [id number]) Intravenous Solution Start Date 10/15/16 Start Time 20:47 End Date 10/15/16 End time 21:47 Total Infusion Time 60 Ondansetron HCl (Zofran Inj) 8 mg IVP STAT STA Stop: 10/15/16 20:15 Last Admin: 10/15/16 20:51 Dose: 8 MG IVP Administration Document 10/15/16 20:51 SF (Rec: 10/15/16 20:51 SF [email or web address] Charges for Administration # of IVP Administrations 1 Ondansetron HCl (Zofran Inj) 4 mg IVP STAT STA Stop: 10/15/16 22:25 Last Admin: 03/30/17 22:55 Dose: 4 MG IVP Administration Document 10/15/16 22:55 RD (Rec: 10/15/16 22:55 RD [id number]) Charges for Administration # of IVP Administrations 1 Oxycodone/Acetaminophen (Percocet 5/325 Mg Tab) 2 tab PO STAT STA Stop: 10/15/16 21:37 Last Admin: 10/15/16 22:06 Dose: 2 TAB Comments: Order clarified, okayed. Disposition/Present on Arrival - Present on Arrival Any Indicators Present on Arrival: No History of DVT/PE: No History of Uncontrolled Diabetes: No Urinary Catheter: No History of Decub. Ulcer: No History Surgical Site Infection Following: None - Disposition Have Diagnosis and Disposition been Completed?: Yes Diagnosis: Chronic abdominal pain Disposition: HOME/ ROUTINE Disposition Time: 23:07 Patient Plan: Discharge Patient Problems: Current Active Problems Problem Status Diagnosed Colitis Acute Ileus Acute Elevated LFTs Acute Condition: STABLE Discharge Instructions (ExitCare): Diabetic Gastroparesis (DC) Prescriptions: Ondansetron ODT [Zofran ODT] 4 mg PO Q8 #12 odt Referrals: Eleazar Buckner JD, MD [Primary Care Provider] - Follow up with primary
[2016-10-15 20:44] LABS: BASO # 0.03 K/mm3 (0.0-2.0); BASO % 0.4 % (0.0-3.0); EOS # 0.2 (0.0-0.7); EOS % 3.4 % (1.5-5.0); GRAN # 3.16 (1.4-6.5); GRAN % 46.3 % (50.0-68.0); HEMATOCRIT 29.5 % (36.0-48.0); LYMPH # 2.9 (1.2-3.4); LYMPH % 42.3 % (22.0-35.0); MEAN CELL VOLUME 82.9 fL (80.0-105.0); MEAN CORPUSCULAR HEMOGLOBIN 26.4 pg (25.0-35.0); MEAN CORPUSCULAR HGB CONC 31.9 g/dl (31.0-37.0); MEAN PLATELET VOLUME 10.2 fl (7.0-11.0); MONO # 0.5 (0.1-0.6); MONO % 7.6 % (1.0-6.0); PLATELET COUNT 181 10^3/uL (120.0-450.0); RED CELL DISTRIBUTION WIDTH 15.5 % (11.5-14.5); WHITE BLOOD COUNT 6.8 10^3/ul (4.5-11.0)
[2016-10-15 20:53] LABS: ALB/GLOB RATIO 1.2 (1.1-1.8); ALKALINE PHOSPHATASE 82 U/L (38-133); ALT/SGPT 59 U/L (7-56); AST/SGOT 29 U/L (15-39); BILIRUBIN,TOTAL 0.3 mg/dL (0.2-1.3); BLOOD UREA NITROGEN 29 mg/dL (7-21); CALCIUM 8.3 mg/dL (8.4-10.5); CARBON DIOXIDE 18 mmol/L (21-33); CHLORIDE 104 mmol/L (98-107); GFR AFRICAN-AMERICAN > 60; GLUCOSE,RANDOM 228 mg/dL (70-110); LIPASE 116 U/L (23-300); POTASSIUM 3.5 mmol/L (3.6-5.0); SODIUM 136 mmol/L (132-148); TOTAL PROTEIN 6.4 g/dL (5.8-8.3)
[2016-10-15 20:58] LABS: PH,URINE 5.5 (4.7-8.0); URINE BILIRUBIN NEGATIVE (NEGATIVE); URINE BLOOD TRACE-INTACT (NEGATIVE); URINE GLUCOSE (UA) NEGATIVE (NEGATIVE); URINE KETONE NEGATIVE (NEGATIVE); URINE LEUKOCYTE ESTERASE SMALL Leu/uL (NEGATIVE); URINE PROTEIN NEGATIVE mg/dL (<30 mg/dL); URINE UROBILINOGEN 0.2 E.U./dL (<1 E.U./dL)
[2016-10-15 20:59] LABS: URINE APPEARANCE CLEAR (CLEAR); URINE COLOR YELLOW (YELLOW)
[2016-10-15 21:10] LABS: URINE AMORPHOUS SEDIMENT FEW; URINE BACTERIA MANY (NEG)
[2016-10-15] MEDS ORDERED: Oxycodone/Acetaminophen 5/325 mg Tab PO STA (21:36)
[2016-10-15 23:03] VITALS: BP 116/73; PULSE 74; RESP 16
== END 2016-10-15 23:20 | disposition home or self-care (01) ==
LOC: ED 19:51
DX: R10.9 Unspecified abdominal pain (principal); G89.29 Other chronic pain; I10 Essential (primary) hypertension
CPT/HCPCS: 80053; 81001; 83690; 84703; 85025; 87086; 96361; 96374; 96375; 96376; 99284; J2405; J7040

== ENCOUNTER 2016-10-27 12:59 | Emergency (ER) | payer MEDICAID ==
[2016-10-27 13:44] VITALS: RESP 18; TEMP 98; O2SAT 100; BMI 22.1
[2016-10-27] MEDS ORDERED: Apap-Butalbital-Caffeine 325-50-40mg Tab PO STA (13:55)
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
[2016-10-27 14:39] LABS: ADD MANUAL DIFF? NO
[2016-10-27 14:50] LABS: BASO # 0.04 K/mm3 (0.0-2.0); BASO % 0.6 % (0.0-3.0); EOS # 0.1 (0.0-0.7); EOS % 2.2 % (1.5-5.0); GRAN # 3.36 (1.4-6.5); GRAN % 53.7 % (50.0-68.0); HEMATOCRIT 30.3 % (36.0-48.0); LYMPH # 2.5 (1.2-3.4); LYMPH % 39.3 % (22.0-35.0); MEAN CORPUSCULAR HEMOGLOBIN 25.9 pg (25.0-35.0); MEAN PLATELET VOLUME 9.5 fl (7.0-11.0); MONO # 0.3 (0.1-0.6); MONO % 4.2 % (1.0-6.0); PLATELET COUNT 293 10^3/uL (120.0-450.0); RED CELL DISTRIBUTION WIDTH 15.7 % (11.5-14.5); WHITE BLOOD COUNT 6.3 10^3/ul (4.5-11.0)
[2016-10-27 15:00] LABS: ALB/GLOB RATIO 1.2 (1.1-1.8); ALKALINE PHOSPHATASE 102 U/L (38-133); ALT/SGPT 65 U/L (7-56); AST/SGOT 28 U/L (15-39); BILIRUBIN,TOTAL 0.3 mg/dL (0.2-1.3); BLOOD UREA NITROGEN 25 mg/dL (7-21); CALCIUM 9.1 mg/dL (8.4-10.5); CARBON DIOXIDE 26 mmol/L (21-33); CHLORIDE 105 mmol/L (95-110); GFR AFRICAN-AMERICAN > 60; GLUCOSE,RANDOM 110 mg/dL (70-110); POTASSIUM 4.6 mmol/L (3.6-5.0); SODIUM 141 mmol/L (132-148); TOTAL PROTEIN 6.7 g/dL (5.8-8.3)
--- NOTE | 2016-10-27 15:17 | RAD ---
HISTORY: medical clearance COMPARISON: No prior. FINDINGS: LUNGS: No active pulmonary disease. PLEURA: No significant pleural effusion identified, no pneumothorax apparent. CARDIOVASCULAR: Normal. OSSEOUS STRUCTURES: No significant abnormalities. VISUALIZED UPPER ABDOMEN: Normal. OTHER FINDINGS: None. IMPRESSION: No active disease.
[2016-10-27 16:11] LABS: URINE BILIRUBIN NEGATIVE (NEGATIVE); URINE BLOOD NEGATIVE (NEGATIVE); URINE GLUCOSE (UA) NEGATIVE (NEGATIVE); URINE KETONE NEGATIVE (NEGATIVE); URINE LEUKOCYTE ESTERASE SMALL Leu/uL (NEGATIVE); URINE PROTEIN NEGATIVE mg/dL (<30 mg/dL); URINE UROBILINOGEN 0.2 E.U./dL (<1 E.U./dL)
[2016-10-27 16:12] LABS: URINE APPEARANCE CLEAR (CLEAR); URINE COLOR STRAW (YELLOW)
[2016-10-27 16:25] VITALS: BP 145/73; PULSE 79
[2016-10-27 16:30] LABS: URINE BACTERIA FEW (NEG); URINE RBC NEGATIVE /hpf (0-2)
[2016-10-27] MEDS ORDERED: Oxycodone/Acetaminophen 5/325 mg Tab PO STA (16:44)
--- NOTE | 2016-10-28 15:25 | CARD ---
APPROVED REPORT EKG Measurement Heart [id number] ME [id number] [id number] <Conclusion> Normal sinus rhythm Normal ECG
== END 2016-10-27 17:00 | disposition home or self-care (01) ==
LOC: ED 12:59
DX: F41.9 Anxiety disorder, unspecified (principal); N39.0 Urinary tract infection, site not specified; I10 Essential (primary) hypertension; E11.9 Type 2 diabetes mellitus without complications; K21.9 Gastro-esophageal reflux disease without esophagitis

== ENCOUNTER 2016-11-18 00:42 | Inpatient (IN) | payer MEDICAID ==
[2016-11-18] MEDS ORDERED: Sodium Chloride 0.9% 1,000 ML IV STA (01:21)
--- NOTE | 2016-11-18 01:25 | ED PDOC ---
Arrival/HPI - General Chief Complaint: GI Problem Time Seen by Provider: 11/18/16 01:05 Historian: Patient - History of Present Illness Narrative History of Present Illness (Text): 11/18/16 01:24 Clara Ortiz is a 51 year old female former smoker, whose past medical history includes hypertension, gastroparesis, diabetes, GERD, and anemia, who presents to the ED complaining of nausea, vomiting, and diarrhea for the past few days. Patient states symptoms are consistent with previous episodes of gastroparesis. Patient notes some occasional epigastric discomfort, none currently. Patient denies any fever, chills, chest pain, shortness of breath, urinary symptoms, back pain, neck pain, headache, dizziness, or any other complaints. Time/Duration: < week (few days) Symptom Onset: Gradual Symptom Course: Unchanged Activities at Onset: Rest, Light Context: Home Past Medical History - Provider Review Nursing Documentation Reviewed: Yes - Infectious Disease Hx of Infectious Diseases: None - Tetanus Immunization Tetanus Immunization: Unknown - Past Medical History Past Medical History: No Previous - Cardiac Hx Cardiac Disorders: Yes Hx Hypertension: Yes - Pulmonary Hx Respiratory Disorders: Yes Hx Pneumonia: Yes Hx Tuberculosis: No - Neurological Hx Neurological Disorder: Yes HX Cerebrovascular Accident: No Hx Seizures: Yes - HEENT Hx HEENT Disorder: No - Renal Hx Renal Disorder: No - Endocrine/Metabolic Hx Endocrine Disorders: No Hx Diabetes Mellitus Type 2: Yes (Borderline) - Hematological/Oncological Hx Blood Disorders: No Hx Cancer: No - Integumentary Hx Dermatological Disorder: No - Musculoskeletal/Rheumatological Hx Falls: Yes - Gastrointestinal Other/Comment: Gastropheresis - Genitourinary/Gynecological Hx Genitourinary Disorders: No Hx Sexually Transmitted Diseases: No - Psychiatric Hx Psychophysiologic Disorder: Yes Hx Anxiety: Yes Hx Depression: Yes Hx Physical Abuse: No Hx Sexual Abuse: No Hx Substance Use: No - Surgical History Hx Cholecystectomy: Yes Hx Gastric Bypass Surgery: Yes (2013) - Anesthesia Hx Anesthesia: Yes Hx Anesthesia Reactions: No Hx Malignant Hyperthermia: No - Suicidal Assessment Feels Threatened In Home Enviroment: No Family/Social History - Physician Review Nursing Documentation Reviewed: Yes Family/Social History: No Known Family HX Smoking Status: Never Smoked Hx Alcohol Use: No Hx Substance Use: No Hx Substance Use Treatment: No Allergies/Home Meds Allergies/Adverse Reactions: Allergies Penicillins Allergy (Intermediate, Verified 10/27/16 22:34) HIVES morphine Allergy (Verified 10/27/16 22:34) ITCHING naproxen [From Naprosyn] Allergy (Verified 10/27/16 22:34) NAUSEA compazine Allergy (Intermediate, Uncoded 10/27/16 22:34) muscle stiffening Review of Systems - Physician Review All systems were reviewed & negative as marked: Yes - Review of Systems Constitutional: Normal. absent: Fevers Eyes: Normal ENT: Normal Respiratory: Normal. absent: SOB, Cough Cardiovascular: Normal. absent: Chest Pain Gastrointestinal: Abdominal Pain, Diarrhea, Nausea, Vomiting Genitourinary Female: Normal. absent: Dysuria, Frequency, Hematuria, Urine Output Changes Musculoskeletal: Normal. absent: Back Pain, Neck Pain Skin: Normal. absent: Rash Neurological: Normal. absent: Headache, Dizziness Endocrine: Normal Hemo/Lymphatic: Normal Psychiatric: Normal Physical Exam Vital Signs Reviewed: Yes Vital Signs Temp Pulse Resp BP Pulse Ox 11/18/16 00:58 98.1 F 78 18 128/78 99 Temperature: Afebrile Blood Pressure: Normal Pulse: Regular Respiratory Rate: Normal Appearance: Positive for: Well-Appearing, Non-Toxic, Comfortable Pain Distress: None Mental Status: Positive for: Alert and Oriented X 3 - Systems Exam Head: Present: Atraumatic, Normocephalic Pupils: Present: PERRL Extroacular Muscles: Present: EOMI Conjunctiva: Present: Normal Mouth: Present: Moist Mucous Membranes Neck: Present: Normal Range of Motion Respiratory/Chest: Present: Clear to Auscultation, Good Air Exchange. No: Respiratory Distress, Accessory Muscle Use Cardiovascular: Present: Regular Rate and Rhythm, Normal S1, S2. No: Murmurs Abdomen: Present: Normal Bowel Sounds. No: Tenderness, Distention, Peritoneal Signs Back: Present: Normal Inspection Upper Extremity: Present: Normal Inspection. No: Cyanosis, Edema Lower Extremity: Present: Normal Inspection. No: Edema Neurological: Present: GCS=15, CN II-XII Intact, Speech Normal Skin: Present: Warm, Dry, Normal Color. No: Rashes Psychiatric: Present: Alert, Oriented x 3, Normal Insight, Normal Concentration Medical Decision Making ED Course and Treatment: 11/18/16 01:24 Impression: 51 year old female complaining of nausea, vomiting, and diarrhea for the past few days. Plan: -- CT Abdomen and Pelvis w/o contrast -- EKG -- Labs, lipase -- IV fluids -- Zofran -- Reassess and disposition Prior Visits: Notes and results from previous visits were reviewed. Progress Notes: Reviewed EKG, NSR at 82 bpm. Normal intervals. No acute changes. 11/18/16 05:29 Reviewed radiology, CT Abdomen and Pelvis shows: Mural thickening within multiple loops of small bowel, without surrounding inflammation or fluid to confirm an enteritis. 11/18/16 05:33 Case discussed with medical records secretary communication arts lecturer, who is aware and agrees with plan. House physician paged. 11/18/16 05:[address] Millicent Eng, who is aware and agrees with plan. Accepts pt in to hospitalist service. Pt will be admitted to [facility] for gastroparesis, intractable vomiting, and enteritis. - Lab Interpretations Lab Results: 11/18/16 01:15 11/18/16 01:15 Lab Results 11/18/16 05:02: pO2 104 H, VBG pH 7.35, VBG pCO2 32.0 L, VBG HCO3 17.7 L, VBG Total CO2 18.7 L, VBG O2 Sat (Calc) 94.1 H, VBG Base Excess -6.8 L, VBG Potassium 3.9, Glucose 170 H, Lactate 1.0, FiO2 21.0, Sodium 140.0, Chloride 112.0 H, Venous Blood Potassium 3.9 11/18/16 02:05: pO2 39, VBG pH 7.32, VBG pCO2 36.0 L, VBG HCO3 18.5 L, VBG Total CO2 19.6 L, VBG O2 Sat (Calc) 70.7 H, VBG Base Excess -6.9 L, VBG Potassium 3.9, Glucose 179 H, Lactate 2.1, FiO2 21.0, Sodium 140.0, Chloride 109.0 H, Venous Blood Potassium 3.9 11/18/16 01:15: WBC 11.3 H D, RBC 4.60, Hgb 12.3, Hct 36.9, MCV 80.2, MCH 26.7, MCHC 33.3, RDW 16.2 H, Plt Count 458 H, MPV 9.8 11/18/16 01:15: Sodium 140, Potassium 3.6, Chloride 103, Carbon Dioxide 17 L, Anion Gap 24 H, BUN 25 H, Creatinine 1.3, Est GFR ( Amer) 52, Est GFR ( Non-Af Amer) 43, Random Glucose 177 H, Calcium 9.8, Total Bilirubin 0.4, AST 50 H, ALT 71 H, Alkaline Phosphatase 132, Total Protein 8.4 H, Albumin 4.6, Globulin 3.8, Albumin/Globulin Ratio 1.2, Lipase 277 I have reviewed the lab results: Yes - RAD Interpretation Narrative RAD Interpretations (Text): CT Abdomen and Pelvis shows: Lower thorax: The bilateral lung bases are clear. ABDOMEN: Liver: No acute findings The gallbladder is absent. No intra-extrahepatic biliary ductal dilation. Pancreas: Limited evaluation secondary to the lack of intravenous contrast. Spleen: No acute findings. Adrenals: No acute findings. Kidneys and ureters: No obstructing stones. No hydronephrosis. PELVIS: Bladder: No acute findings. Reproductive: No acute findings. Appendix: The appendix is of normal caliber (series 2, image 81). ABDOMEN and PELVIS: Stomach and bowel: Postoperative change within the upper abdomen. Mural thickening within multiple loops of small bowel, without surrounding fluid or inflammation to confirm an enteritis. Peritoneum: No acute findings. Lymph nodes: Limited evaluation without intravenous contrast. Vasculature: No aortic aneurysm. Bones: No acute fracture. IMPRESSION: Mural thickening within multiple loops of small bowel, without surrounding inflammation or fluid to confirm an enteritis. Radiology Orders: 11/18/16 02:27 ABD & PELVIS W/O PO OR IV CONT [CT] Stat Mold Closer Helper: Radiologist - EKG Interpretation Interpreted by ED Physician: Yes Type: 12 lead EKG - Medication Orders Current Medication Orders: Sodium Chloride (Sodium Chloride 0.9%) 1,000 mls @ 100 mls/hr IV .Q10H RADHA Last Admin: 11/18/16 05:02 Dose: 100 mls/hr Ciprofloxacin (Cipro 400mg/200ml Dsw) 400 mg in 200 mls @ 133.333 mls/hr IV STAT STA PRN Reason: Protocol Stop: 11/18/16 06:58 Metronidazole (Flagyl) 500 mg in 100 mls @ 100 mls/hr IVPB STAT STA PRN Reason: Protocol Stop: 11/18/16 06:29 Discontinued Medications Hydromorphone HCl (Dilaudid) 1 mg IVP STAT STA Stop: 11/18/16 05:31 Sodium Chloride (Sodium Chloride 0.9%) 1,000 mls @ 999 mls/hr IV .Q1H1M STA Stop: 11/18/16 02:21 Last Admin: 11/18/16 01:29 Dose: 999 mls/hr Lorazepam (Ativan) 1 mg IVP ONCE ONE Stop: 11/18/16 04:00 Last Admin: 11/18/16 04:06 Dose: 1 mg Ondansetron HCl (Zofran Inj) 4 mg IVP ONCE ONE Stop: 11/18/16 01:22 Last Admin: 11/18/16 01:29 Dose: 4 mg - Virgieibe Statement The provider has reviewed the documentation as recorded by the Virgieibcal Brown All medical record entries made by the Virgieibcal were at my direction and personally dictated by me. I have reviewed the chart and agree that the record accurately reflects my personal performance of the history, physical exam, medical decision making, and the department course for this patient. I have also personally directed, reviewed, and agree with the discharge instructions and disposition. Disposition/Present on Arrival - Present on Arrival Any Indicators Present on Arrival: No History of DVT/PE: No History of Uncontrolled Diabetes: No Urinary Catheter: No History of Decub. Ulcer: No History Surgical Site Infection Following: None - Disposition Have Diagnosis and Disposition been Completed?: Yes Diagnosis: Gastroparesis, Intractable vomiting, Enteritis Disposition: HOSPITALIZED Disposition Time: 05:34 Patient Plan: Admission Patient Problems: Current Active Problems Problem Status Onset Enteritis Acute Gastroparesis Acute Intractable vomiting Acute Condition: STABLE
[2016-11-18 01:39] LABS: HEMATOCRIT 36.9 % (36.0-48.0); MEAN CELL VOLUME 80.2 fL (80.0-105.0); MEAN CORPUSCULAR HEMOGLOBIN 26.7 pg (25.0-35.0); MEAN CORPUSCULAR HGB CONC 33.3 g/dl (31.0-37.0); MEAN PLATELET VOLUME 9.8 fl (7.0-11.0); RED CELL DISTRIBUTION WIDTH 16.2 % (11.5-14.5); WHITE BLOOD COUNT 11.3 10^3/ul (4.5-11.0)
[2016-11-18 01:44] LABS: ALB/GLOB RATIO 1.2 (1.1-1.8); BILIRUBIN,TOTAL 0.4 mg/dL (0.2-1.3); CALCIUM 9.8 mg/dL (8.4-10.5); POTASSIUM 3.6 mmol/L (3.6-5.0); TOTAL PROTEIN 8.4 g/dL (5.8-8.3)
[2016-11-18 02:16] LABS: VENOUS BLOOD GAS BASE EXCESS -6.9 mmol/L (0.0-2.0); VENOUS BLOOD PH 7.32 (7.32-7.43)
[2016-11-18] MEDS: Sodium Chloride 0.9% 1,000 ML IV SCH ×4 (05:02→22:38)
[2016-11-18 05:19] LABS: VENOUS BLOOD GAS BASE EXCESS -6.8 mmol/L (0.0-2.0); VENOUS BLOOD PH 7.35 (7.32-7.43)
--- NOTE | 2016-11-18 05:25 | CT ---
EXAM: CT Abdomen and Pelvis Without Intravenous Contrast CLINICAL HISTORY: 51 years old, female; Pain; Abdominal pain; Generalized TECHNIQUE: Axial computed tomography images of the abdomen and pelvis without intravenous contrast. This CT exam was performed using one or more of the following dose reduction techniques: automated exposure control, adjustment of the mA and/or kV according to patient size, and/or use of iterative reconstruction technique. Coronal and sagittal reformatted images were created and reviewed. COMPARISON: CT - ABD PELVIS W/O PO OR IV CONT 09/26/2016 1:06:04 AM FINDINGS: Lower thorax: The bilateral lung bases are clear. ABDOMEN: Liver: No acute findings The gallbladder is absent. No intra-extrahepatic biliary ductal dilation. Pancreas: Limited evaluation secondary to the lack of intravenous contrast. Spleen: No acute findings. Adrenals: No acute findings. Kidneys and ureters: No obstructing stones. No hydronephrosis. PELVIS: Bladder: No acute findings. Reproductive: No acute findings. Appendix: The appendix is of normal caliber (series 2, image 81). ABDOMEN and PELVIS: Stomach and bowel: Postoperative change within the upper abdomen. Mural thickening within multiple loops of small bowel, without surrounding fluid or inflammation to confirm an enteritis. Peritoneum: No acute findings. Lymph nodes: Limited evaluation without intravenous contrast. Vasculature: No aortic aneurysm. Bones: No acute fracture. IMPRESSION: Mural thickening within multiple loops of small bowel, without surrounding inflammation or fluid to confirm an enteritis.
[2016-11-18] MEDS ORDERED: Ciprofloxacin 400mg/200ml D5W 400 MG/200 ML BAG IV STA (05:29)
[2016-11-18] MEDS ORDERED: HYDROmorphone 1 mg/ml ISec IVP STA (05:30)
[2016-11-18] MEDS ORDERED: metroNIDAZOLE IV 500 mg/100 ml 500 MG/100 ML BAG IVPB STA (05:30)
[2016-11-18] MEDS ORDERED: Morphine 2 mg/ml ISec IVP PRN (06:08)
--- NOTE | 2016-11-18 06:41 | CP.PCM.HP ---
History of Present Illness - History of Present Illness History of Present Illness: CC: "stomach pain, nausea, vomiting, diarrhea" HPI: Pt is a 51 year old F with a PMHx of Diabetic Gastroparesis s/p vagotomy, Diabetes Mellitus (which she reports that she no longer has), Epilepsy, anxiety , and depression who presented to the ED with complaints of mid epigastric abdominal pain, nausea, vomiting, and diarrhea for the past 3 days. Pt reports that it is a flare up of her gastroparesis, which happens every so often. Pt reports that stress triggers the episodes. She reports that she has been feeling anxious lately due to family problems. She reports that her emesis is bilious. She states that during her gastroparesis flare ups, she usually has either diarrhea or vomiting, but never both. She reports that she feels hungry, but cannot keep any food down. This time she reports that she has both diarrhea and vomiting. Pt also reports that she has chills. Pt denies fever, chest pain, shortness of breath, dysuria. PMHx:Diabetic Gastroparesis s/p vagotomy, Diabetes Mellitus (which she reports that she no longer has), Epilepsy, anxiety, and depression Home medications: Keppra 500 mg po bid, effexor 250 mg po qd, seroquel 150 mg po hs, remeron 45 mg po hs, klonopin 2 mg po tid Past Surgical Hx: Vagotomy (2013), right ankle surgery, right knee surgery Allergies: Penicillins (rash), Compazine (muscle stiffness", Naprosyn (rash) Social Hx: former smoker (quit 2 years ago, denies alcohol use, denies hx of illicit drug use Family Hx: HTN, DM, cancer, Heart disease Present on Admission - Present on Admission Any Indicators Present on Admission: No Review of Systems - Constitutional Constitutional: Chills - EENT Eyes: absent: Discharge Ears: absent: Decreased Hearing, Dizziness Nose/Mouth/Throat: absent: Epistaxis - Cardiovascular Cardiovascular: absent: Chest Pain, Dyspnea - Respiratory Respiratory: absent: Dyspnea, Wheezing - Gastrointestinal Gastrointestinal: Abdominal Pain, Diarrhea, Vomiting - Genitourinary Genitourinary: absent: Dysuria - Musculoskeletal Musculoskeletal: absent: Arthralgias - Neurological Neurological: absent: Dizziness, Headaches - Psychiatric Psychiatric: Abnormal Sleep Pattern, Anxiety, Depression - Hematologic/Lymphatic Hematologic: absent: Easy Bleeding Past Patient History - Infectious Disease Hx of Infectious Diseases: None - Tetanus Immunizations Tetanus Immunization: Unknown - Past Medical History & Family History Past Medical History?: Yes - Past Social History Smoking Status: Never Smoked - CARDIAC Hx Cardiac Disorders: Yes Hx Hypertension: Yes - PULMONARY Hx Respiratory Disorders: Yes Hx Pneumonia: Yes Hx Tuberculosis: No - NEUROLOGICAL Hx Neurological Disorder: Yes HX Cerebrovascular Accident: No Hx Seizures: Yes - HEENT Hx HEENT Problems: No - RENAL Hx Chronic Kidney Disease: No - ENDOCRINE/METABOLIC Hx Endocrine Disorders: No Hx Diabetes Mellitus Type 2: Yes (Borderline) - HEMATOLOGICAL/ONCOLOGICAL Hx Blood Disorders: No Hx Cancer: No - INTEGUMENTARY Hx Dermatological Problems: No - MUSCULOSKELETAL/RHEUMATOLOGICAL Hx Falls: Yes - GASTROINTESTINAL Other/Comment: Gastropheresis - GENITOURINARY/GYNECOLOGICAL Hx Genitourinary Disorders: No Hx Sexually Transmitted Disorders: No - PSYCHIATRIC Hx Psychophysiologic Disorder: Yes Hx Anxiety: Yes Hx Depression: Yes Hx Physical Abuse: No Hx Sexual Abuse: No Hx Substance Use: No - SURGICAL HISTORY Hx Cholecystectomy: Yes Hx Gastric Bypass Surgery: Yes (2013) - ANESTHESIA Hx Anesthesia: Yes Hx Anesthesia Reactions: No Hx Malignant Hyperthermia: No Meds Allergies/Adverse Reactions: Allergies Allergy/AdvReac Type Severity Reaction Status Date / Time Penicillins Allergy Intermediate HIVES Verified 10/27/16 22:34 morphine Allergy ITCHING Verified 10/27/16 22:34 naproxen [From Naprosyn] Allergy NAUSEA Verified 10/27/16 22:34 compazine Allergy Intermediate muscle Uncoded 10/27/16 22:34 stiffening Physical Exam - Constitutional Appears: No Acute Distress - Head Exam Head Exam: ATRAUMATIC, NORMOCEPHALIC - Eye Exam Eye Exam: EOMI, PERRL Pupil Exam: PERRL - ENT Exam ENT Exam: Mucous Membranes Dry. absent: Mucous Membranes Moist - Neck Exam Neck exam: Positive for: Full Rom - Respiratory Exam Respiratory Exam: Clear to Auscultation Bilateral. absent: Rales, Rhonchi, Wheezes - Cardiovascular Exam Cardiovascular Exam: Tachycardia, +S1, +S2 - GI/Abdominal Exam GI & Abdominal Exam: Soft, Tenderness. absent: Distended, Firm, Guarding - Extremities Exam Extremities exam: Positive for: full ROM. Negative for: pedal edema - Neurological Exam Neurological exam: Alert, Oriented x3 - Psychiatric Exam Psychiatric exam: Normal Affect, Normal Mood - Skin Skin Exam: Pallor, Warm Results - Vital Signs Recent Vital Signs: Last Vital Signs Temp 98.1 F 11/18/16 00:58 Pulse 88 11/18/16 04:43 Resp 18 11/18/16 04:43 BP 136/74 11/18/16 04:43 Pulse Ox 99 11/18/16 04:43 - Labs Result Diagrams: 11/18/16 01:15 11/18/16 01:15 Assessment & Plan - Assessment and Plan (Free Text) Assessment: Diabetic Gastroparesis: Abd/Pelvis CT w/o po or iv contrast - mural thickening within loops of bowel, wtihout surrounding fluid or inflammation to confirm an enteritis (please see full report) Erythromycin 250 mg po ac Reglan 5 mg IV achs Zofran 4 mg IV q4h prn Tylenol 650 mg po q6h prn for pain NS 100 cc/hr Gastroenterology, Dr. Humphrey, consulted. Help appreciated. Epilepsy: Keppra 500 mg po bid (home med) Anxiety/Depression: Psych, Dr. Guerra, consulted. Help appreciated. Remeron 45 mg po hs (home medication) Klonopin 2 mg po tid (home medication) Seroquel 150 mg po hs (held - verify) Effexor 150 mg po qd ( held- verify) Prophylactic Measures: DVT: SCDs, Heparin 5000 units sc q8h GI: Protonix 40 mg IV qd
--- NOTE | 2016-11-18 07:32 | CP.PCM.CON ---
<Ki Landaverde - Last Filed: 11/18/16 12:45> History of Present Illness - History of Present Illness History of Present Illness: PGY4 GI Fellow Consult Note Patient is a 50yo female with PMHx significant for PUD s/p Billroth 2 gastrojejunostomy and vagotomy complicated by gastroparesis, LA class C esophagitis, medication induced (Januvia) pancreatitis, DMT2, prior DVT not on anticoagulation who presented to the ED with nausea, vomiting and diarrhea. Wednesday, the patient suddenly developed loose, watery diarrhea and abdominal cramping. She has continued to have 4-5 episodes of stooling per day since. In the days that followed she developed nausea and vomiting with difficulty tolerating PO intake. Given that she felt she was becoming dehydrated, she came to the ED for further evaluation. In the ED, a CT A/P without contrast was performed and revealed some moderate mural thickening of the small bowel without associated dilated loops or surrounding inflammation/fluid. She does admit to some persistent nonradiating epigastric discomfort, which is chronic, and occasional nausea/vomiting at this time. She has no recent history of travel or antibiotic use. PMHx: See HPI PSHx: Billroth 2 and vagotomy, Right ankle, Right meniscus repair FHx: Mother - HTN, DM; Father - Prostate/lung cancer, CAD Social: Quit smoking 5 months ago, denies EtOH or illicit drug use Endo: 04/07/16 - EGD/ERCP - LA Class C esophagitis, duodenal diverticula, patent Billroth 2, debris removed from CBD Review of Systems - Constitutional Constitutional: Anorexia, Weakness. absent: Chills, Fever - EENT Eyes: absent: Change in Vision Nose/Mouth/Throat: Sore Throat - Cardiovascular Cardiovascular: absent: Chest Pain, Dyspnea, Edema - Respiratory Respiratory: absent: Cough, Dyspnea, Excessive Mucous Production - Gastrointestinal Gastrointestinal: Abdominal Pain, Diarrhea, Loose Stools, Nausea, Vomiting. absent: Bloating, Constipation, Cramping, Dyspepsia, Dysphagia, Excessive Flatus , Hematemesis, Hematochezia, Melena - Genitourinary Genitourinary: absent: Dysuria, Urinary Frequency, Urinary Urgency - Musculoskeletal Musculoskeletal: absent: Back Pain, Neck Pain - Integumentary Integumentary: absent: New Lesions, Rash - Neurological Neurological: absent: Dizziness, Numbness, Focal Weakness - Psychiatric Psychiatric: absent: Anxiety, Depression - Endocrine Endocrine: absent: Polydipsia, Polyphagia, Polyuria - Hematologic/Lymphatic Hematologic: absent: Easy Bleeding, Easy Bruising, Lymphadenopathy Past Patient History - Infectious Disease Hx of Infectious Diseases: None - Tetanus Immunizations Tetanus Immunization: Unknown - Past Medical History & Family History Past Medical History?: Yes - Past Social History Smoking Status: Never Smoked - CARDIAC Hx Cardiac Disorders: Yes Hx Hypertension: Yes - PULMONARY Hx Respiratory Disorders: Yes Hx Pneumonia: Yes Hx Tuberculosis: No - NEUROLOGICAL Hx Neurological Disorder: Yes HX Cerebrovascular Accident: No Hx Seizures: Yes - HEENT Hx HEENT Problems: No - RENAL Hx Chronic Kidney Disease: No - ENDOCRINE/METABOLIC Hx Endocrine Disorders: No Hx Diabetes Mellitus Type 2: Yes (Borderline) - HEMATOLOGICAL/ONCOLOGICAL Hx Blood Disorders: No Hx Cancer: No - INTEGUMENTARY Hx Dermatological Problems: No - MUSCULOSKELETAL/RHEUMATOLOGICAL Hx Falls: Yes - GASTROINTESTINAL Other/Comment: Gastropheresis - GENITOURINARY/GYNECOLOGICAL Hx Genitourinary Disorders: No Hx Sexually Transmitted Disorders: No - PSYCHIATRIC Hx Psychophysiologic Disorder: Yes Hx Anxiety: Yes Hx Depression: Yes Hx Physical Abuse: No Hx Sexual Abuse: No Hx Substance Use: No - SURGICAL HISTORY Hx Cholecystectomy: Yes Hx Gastric Bypass Surgery: Yes (2013) - ANESTHESIA Hx Anesthesia: Yes Hx Anesthesia Reactions: No Hx Malignant Hyperthermia: No Meds Allergies/Adverse Reactions: Allergies Allergy/AdvReac Type Severity Reaction Status Date / Time Penicillins Allergy Intermediate HIVES Verified 10/27/16 22:34 morphine Allergy ITCHING Verified 10/27/16 22:34 naproxen [From Naprosyn] Allergy NAUSEA Verified 10/27/16 22:34 compazine Allergy Intermediate muscle Uncoded 10/27/16 22:34 stiffening - Medications Medications: Current Medications Acetaminophen (Tylenol 325mg Tab) 650 mg PO Q6H PRN PRN Reason: Pain, moderate (4-7) Clonazepam (Klonopin) 2 mg PO TID [facility]HA PRN Reason: Protocol Heparin Sodium (Porcine) (Heparin) 5,000 units SC Q8H [facility] PRN Reason: Protocol Last Admin: 11/18/16 06:52 Dose: 5,000 units Sodium Chloride (Sodium Chloride 0.9%) 1,000 mls @ 100 mls/hr IV .Q10H [facility] Last Admin: 11/18/16 05:02 Dose: 100 mls/hr Levetiracetam (Keppra) 500 mg PO BID [facility] Metoclopramide HCl (Reglan) 5 mg IVP ACHS [facility] Last Admin: 11/18/16 06:53 Dose: 5 mg Mirtazapine (Remeron) 45 mg PO HS [facility] Ondansetron HCl (Zofran Inj) 4 mg IVP Q4H PRN PRN Reason: Nausea/Vomiting Pantoprazole Sodium (Protonix Inj) 40 mg IVP DAILY [facility] Physical Exam - Constitutional Appears: Non-toxic, No Acute Distress - Eye Exam Eye Exam: EOMI, PERRL - ENT Exam ENT Exam: Mucous Membranes Moist - Respiratory Exam Respiratory Exam: Clear to Auscultation Bilateral. absent: Rales, Rhonchi, Wheezes - Cardiovascular Exam Cardiovascular Exam: RRR, +S1, +S2 - GI/Abdominal Exam GI & Abdominal Exam: Normal Bowel Sounds, Soft. absent: Distended, Firm, Guarding, Hernia, Organomegaly, Rigid, Tenderness Additional comments: healed operative sites at midline and right side of abdomen from prior PEG - Extremities Exam Extremities exam: Positive for: normal inspection. Negative for: pedal edema - Neurological Exam Neurological exam: Alert, Oriented x3 - Psychiatric Exam Psychiatric exam: Normal Affect, Normal Mood - Skin Skin Exam: Dry, Warm Results - Vital Signs Recent Vital Signs: Last Vital Signs Temp 98.1 F 11/18/16 00:58 Pulse 88 11/18/16 04:43 Resp 18 11/18/16 04:43 BP 136/74 11/18/16 04:43 Pulse Ox 99 11/18/16 04:43 - Labs Result Diagrams: 11/18/16 09:00 11/18/16 09:00 Assessment & Plan - Assessment and Plan (Free Text) Assessment: Patient is a 50yo female with PMHx significant for PUD s/p Billroth 2 gastrojejunostomy and vagotomy complicated by gastroparesis, LA class C esophagitis, medication induced (Januvia) pancreatitis, DMT2, prior DVT not on anticoagulation who presented to the ED with nausea, vomiting and diarrhea -Nausea, vomiting, diarrhea - favor acute viral gastroenteritis vs bacterial infectious process -Abnormal LFTs - prior extensive w/u including liver bx - suspect DILI (percocet /fiorcet) vs 2/2 above persistent nausea/vomiting -H/O Billroth 2 gastrojejunostomy and vagotomy complicated by gastroparesis -H/O Esophagitis -Anxiety/Depression, improved from prior Plan: -Would recommend conservative therapy at this juncture -Advance diet to liquids, continue to advance as tolerated - goal of bland/ diarrhea management/6 small meals -Antiemetics PRN; recommend against the use of Reglan given neurologic side effects which have been discussed with patient - she agrees -If frequent stooling persists; consider stool studies; hwoever in setting of acute diarrhea (<14 days), further work up not necessary at this time -Monitor LFTs, extensive w/u noted -Avoid opiates as possible -Avoid hepatotoxic medications -Protonix can be given PO QAMAC once patient tolerating PO -Patient following outpatient with psychiatry which seems to be helping her -Continue to recommend outpatient follow up with motility specialist at [facility], patient has not followed up - Date & Time Date: 11/18/16 Time: 07:20 <Reji Charles MD - Last Filed: 11/19/16 09:01> Meds - Medications Medications: Current Medications Acetaminophen/Butalbital/Caffeine (Fioricet) 1 tab PO Q4H PRN PRN Reason: Headache Last Admin: 11/19/16 07:03 Dose: 1 tab Clonazepam (Klonopin) 1 mg PO BID [facility] PRN Reason: Protocol Last Admin: 11/18/16 18:05 Dose: 1 mg Heparin Sodium (Porcine) (Heparin) 5,000 units SC Q8H [facility] PRN Reason: Protocol Last Admin: 11/19/16 06:56 Dose: 5,000 units Hydroxyzine Pamoate (Vistaril) 50 mg PO Q8 PRN; Protocol PRN Reason: Anxiety Last Admin: 11/18/16 16:45 Dose: 50 mg Sodium Chloride (Sodium Chloride 0.9%) 1,000 mls @ 100 mls/hr IV .Q10H [facility] Last Admin: 11/19/16 08:44 Dose: 100 mls/hr Levetiracetam (Keppra) 500 mg PO BID [facility] Last Admin: 11/18/16 18:05 Dose: 500 mg Mirtazapine (Remeron) 45 mg PO HS [facility] Last Admin: 11/18/16 22:01 Dose: 45 mg Ondansetron HCl (Zofran Inj) 4 mg IVP Q4H PRN PRN Reason: Nausea/Vomiting Last Admin: 11/18/16 18:48 Dose: 4 mg Pantoprazole Sodium (Protonix Inj) 40 mg IVP DAILY [facility] Last Admin: 11/18/16 09:20 Dose: 40 mg Quetiapine Fumarate (Seroquel) 25 mg PO HS [facility] PRN Reason: Protocol Venlafaxine HCl (Effexor Xr) 150 mg PO DAILY [facility] Last Admin: 11/18/16 16:47 Dose: 150 mg Results - Vital Signs Recent Vital Signs: Last Vital Signs Temp 97.5 F L 11/19/16 06:00 Pulse 80 11/19/16 06:00 Resp 20 11/19/16 06:00 BP 92/53 L 11/19/16 06:00 Pulse Ox 100 11/19/16 06:00 - Labs Result Diagrams: 11/19/16 07:00 11/19/16 07:00 Labs: Laboratory Results - last 24 hr 11/18/16 11/18/16 11/18/16 07:00 09:00 09:00 WBC 11.5 H RBC 4.16 Hgb 10.8 L Hct 33.5 L MCV 80.5 MCH 26.0 MCHC 32.2 RDW 16.3 H Plt Count 372 MPV 9.3 Gran % 80.0 H Lymph % (Auto) 16.1 L [place] % (Auto) 3.7 Eos % (Auto) 0.0 L Baso % (Auto) 0.2 Gran # 9.21 H Lymph # 1.9 [place] # 0.4 Eos # 0.0 Baso # 0.02 Sodium 140 Potassium 3.7 Chloride 105 Carbon Dioxide 19 L Anion Gap 20 BUN 20 Creatinine 1.0 Est GFR ( Amer) > 60 Est GFR (Non-Af Amer) 58 Random Glucose 182 H Hemoglobin A1c 6.3 Calcium 9.1 Total Bilirubin 0.5 AST 37 ALT 71 H Alkaline Phosphatase 99 Total Protein 7.4 Albumin 4.2 Globulin 3.2 Albumin/Globulin Ratio 1.3 11/19/16 11/19/16 07:00 07:00 WBC 5.1 D RBC 3.61 Hgb 9.6 L Hct 29.6 L MCV 82.0 MCH 26.6 MCHC 32.4 RDW 16.6 H Plt Count 261 MPV 9.5 Gran % 26.1 L Lymph % (Auto) 62.9 H [place] % (Auto) 6.1 H Eos % (Auto) 4.5 Baso % (Auto) 0.4 Gran # 1.34 L Lymph # 3.2 [place] # 0.3 Eos # 0.2 Baso # 0.02 Sodium 141 Potassium 3.3 L Chloride 112 H Carbon Dioxide 22 Anion Gap 10 BUN 15 Creatinine 1.0 Est GFR ( Amer) > 60 Est GFR (Non-Af Amer) 58 Random Glucose 110 Hemoglobin A1c Calcium 8.5 Total Bilirubin 0.4 AST 25 ALT 56 Alkaline Phosphatase 74 Total Protein 5.9 Albumin 3.2 Globulin 2.7 Albumin/Globulin Ratio 1.2 Attending/Attestation - Attestation I have personally seen and examined this patient.: Yes I have fully participated in the care of the patient.: Yes I have reviewed all pertinent clinical information: Yes Notes (Text): 11/19/16 08:59 patient seen and examined with GI fellow at [facility] yesterday afternoon. This is a 50 yo female with PMHx significant for PUD s/p Billroth 2 gastrojejunostomy and vagotomy complicated by gastroparesis, LA class C esophagitis, medication induced (Januvia) pancreatitis, DMT2, prior DVT not on anticoagulation who presented to the ED with nausea, vomiting and diarrhea likley acute viral gastroenteritis. Diarrhea has resolved. Nausea and vomiting may be multifactorial due to gastroparesis. Advance diet and follow stool infectious work up. Antiemetics as needed. Trend LFT- has previous sludge and ERCP.
[2016-11-18 07:42] LABS: CHOLESTEROL 269 mg/dL (130-200)
[2016-11-18 09:06] VITALS: BMI 22.8
[2016-11-18 09:19] LABS: ADD MANUAL DIFF? NO
[2016-11-18 09:26] LABS: BASO # 0.02 K/mm3 (0.0-2.0); BASO % 0.2 % (0.0-3.0); GRAN # 9.21 (1.4-6.5); HEMATOCRIT 33.5 % (36.0-48.0); LYMPH # 1.9 (1.2-3.4); LYMPH % 16.1 % (22.0-35.0); MEAN CELL VOLUME 80.5 fL (80.0-105.0); MEAN CORPUSCULAR HGB CONC 32.2 g/dl (31.0-37.0); MEAN PLATELET VOLUME 9.3 fl (7.0-11.0); MONO # 0.4 (0.1-0.6); MONO % 3.7 % (1.0-6.0); PLATELET COUNT 372 10^3/uL (120.0-450.0); RED CELL DISTRIBUTION WIDTH 16.3 % (11.5-14.5); WHITE BLOOD COUNT 11.5 10^3/ul (4.5-11.0)
[2016-11-18 09:31] LABS: ALB/GLOB RATIO 1.3 (1.1-1.8); ALKALINE PHOSPHATASE 99 U/L (38-133); ALT/SGPT 71 U/L (7-56); AST/SGOT 37 U/L (15-39); BILIRUBIN,TOTAL 0.5 mg/dL (0.2-1.3); BLOOD UREA NITROGEN 20 mg/dL (7-21); CALCIUM 9.1 mg/dL (8.4-10.5); CARBON DIOXIDE 19 mmol/L (21-33); CHLORIDE 105 mmol/L (98-107); GFR AFRICAN-AMERICAN > 60; GLUCOSE,RANDOM 182 mg/dL (70-110); POTASSIUM 3.7 mmol/L (3.6-5.0); SODIUM 140 mmol/L (132-148); TOTAL PROTEIN 7.4 g/dL (5.8-8.3)
[2016-11-18] MEDS ORDERED: HYDROmorphone 1 mg/ml ISec IVP ONE (10:55)
[2016-11-18] MEDS ORDERED: Naproxen 550 mg Tab PO PRN (15:39)
[2016-11-18] MEDS: Apap-Butalbital-Caffeine 325-50-40mg Tab PO PRN ×2 (16:45→20:39)
[2016-11-18] MEDS: Venlafaxine 75 mg ER Cap PO SCH (16:47)
--- NOTE | 2016-11-18 21:48 | CARD ---
APPROVED REPORT EKG Measurement Heart [id number] <Conclusion> Normal sinus rhythm Prolonged QT Abnormal ECG
--- NOTE | 2016-11-18 22:48 | CON ---
DATE: 11/18/2016 HISTORY OF PRESENT ILLNESS: The patient is 51-year-old female with a long history of mood disorder and anxiety disorder. Most likely this is related to general medical condition. The patien t has multiple medical issues, diabetes, gastroparesis, status post vagotomy. The patient was admitte d on the medical floor for evaluation of diarrhea and vomiting. Psych consult was called because the patient has a long history of mental illness and the patient [facility]. The patient was seen and examined with medical dir. The patient is kurt rehman familiar to this quality analyst/technical writer from the previous admission on the psychiatric inpatient unit, wish to pl fish here in [place] on 09/28/2016. The patient was discharged with a followup appointment with [facility]. As per electronic records, [employer], the patient was compliant with the followup appointm ents. Most recent followup was the day before yesterday with Dr. Piedra at [facility] clinic. The patient reported that her medications recently were adjusted. This quality analyst/technical writer called to the pharmacy and medications were concerned. The patient was on Effexor 150 mg daily extended release, Percocet, Remeron 45 mg at nighttime, Seroquel 100 mg at nighttime, Vistaril was 50 mg q. 8 hours as needed. The patient also was on Klonopin 1 mg twice a day prescribed by Dr. Piedra filled on 10/28. The patie nt reported that she was compliant with medication, but at the same time, the patient was taking more Klonopin than was prescribed due to anxiety. The patient asked this quality analyst/technical writer to increase the dose of medication. This quality analyst/technical writer declined that request because the patient will be followed up with [facility] psychiatrist and dose will be decreased back to the previous dose. The patient verbalized understa nding. This quality analyst/technical writer suggested Vistaril as needed. The patient verbalized understanding and she wants to continue the medications that she was on before. VITAL SIGNS: Stable. Temperature is 98.0, pulse is 118, blood pressure 147/93, oxygen saturations 9 6. MEDICATIONS: Reviewed. Klonopin 2 mg 3 times a day, the dose is decreased to 1 mg twice a day. It w as confirmed by patient's pharmacy, [facility]. The patient also is on heparin, Keppra, Remeron 45 mg at nighttime, Zofran, Protonix and sodium chloride. Effexor will be resumed 150 mg daily, also S eroquel 100 mg at the nighttime. MENTAL STATUS EXAMINATION: The patient appears to be alert and oriented, pleasant and cooperative. Fair eye contact. Speech was normal rate, tone and quality, and quantity. Mood described as anxious . Affect was constricted, but reactive, mood congruent. Thought process was coherent and goal direc lynda. Thought content: The patient denied visual or tactile hallucinations. Denies paranoid ideatio n. The patient denies thoughts of harming herself or others. Denies intent or plan. The patient do es not present to be depressed or psychotic. Insight and judgment improving. Impulse is well contro lled. IMPRESSION: Rule out mood disorder and anxiety disorder due to general medical condition, rule out b ipolar disorder, rule out antisocial personality disorder, rule out ____ painkillers addiction. The patient has multiple medical issues. Please see above. PLAN: Continue current medication. This quality analyst/technical writer confirmed medications by [facility] pharmacy. The patient w as on Effexor 150 mg extended release, we will continue that. The patient was on Remeron 45 mg at the nighttime, we will continue that. Seroquel was 100 mg at the nighttime. At the same time, the patie nt's EKG is not done, questionable QTC prolongation. If the patient does not have QTC prolongation, w ill need to resume Seroquel. Seroquel to be given as 50 mg q. 8 hours as needed and Klonopin will be decreased to 1 mg twice a day. The patient has followup appointment with Dr. Piedra at [facility]. The patient was educated to take medication as it was prescribed. The patient was educated about risks, benefits and alternatives of medication. The patient reported to tolerate medications well a nd denied any side effects and none were observed or reported ____. The patient seems to be at her b aseline. This quality analyst/technical writer would suggest continue current medications. This quality analyst/technical writer will sign off from [facility] s case. Should you have any questions, give me a call back. Janice Guerra MD cc: [id number] TT: 11/18/2016 22:48:15 Confirmation # [id number] Dictation # [id number]
[2016-11-19] MEDS: Apap-Butalbital-Caffeine 325-50-40mg Tab PO PRN ×3 (07:03→16:20)
[2016-11-19 07:48] LABS: BASO # 0.02 K/mm3 (0.0-2.0); BASO % 0.4 % (0.0-3.0); EOS # 0.2 (0.0-0.7); EOS % 4.5 % (1.5-5.0); GRAN # 1.34 (1.4-6.5); GRAN % 26.1 % (50.0-68.0); HEMATOCRIT 29.6 % (36.0-48.0); LYMPH # 3.2 (1.2-3.4); LYMPH % 62.9 % (22.0-35.0); MEAN CORPUSCULAR HEMOGLOBIN 26.6 pg (25.0-35.0); MEAN CORPUSCULAR HGB CONC 32.4 g/dl (31.0-37.0); MEAN PLATELET VOLUME 9.5 fl (7.0-11.0); MONO # 0.3 (0.1-0.6); MONO % 6.1 % (1.0-6.0); PLATELET COUNT 261 10^3/uL (120.0-450.0); RED CELL DISTRIBUTION WIDTH 16.6 % (11.5-14.5); WHITE BLOOD COUNT 5.1 10^3/ul (4.5-11.0)
[2016-11-19 07:50] LABS: ADD MANUAL DIFF? NO
[2016-11-19 08:02] LABS: ALB/GLOB RATIO 1.2 (1.1-1.8); ALKALINE PHOSPHATASE 74 U/L (38-133); ALT/SGPT 56 U/L (7-56); AST/SGOT 25 U/L (15-39); BILIRUBIN,TOTAL 0.4 mg/dL (0.2-1.3); BLOOD UREA NITROGEN 15 mg/dL (7-21); CALCIUM 8.5 mg/dL (8.4-10.5); CARBON DIOXIDE 22 mmol/L (21-33); CHLORIDE 112 mmol/L (98-107); GFR AFRICAN-AMERICAN > 60; GLUCOSE,RANDOM 110 mg/dL (70-110); POTASSIUM 3.3 mmol/L (3.6-5.0); SODIUM 141 mmol/L (132-148); TOTAL PROTEIN 5.9 g/dL (5.8-8.3)
[2016-11-19] MEDS: Sodium Chloride 0.9% 1,000 ML IV SCH ×2 (08:44→23:24)
--- NOTE | 2016-11-19 08:44 | RAD ---
PROCEDURE: Left hand and 3rd digit radiographs HISTORY: swollen COMPARISON: None. FINDINGS: BONES: There is a chronic fracture deformity of the 3rd middle phalanx. No evidence of acute fracture JOINTS: Normal. No osteoarthritic changes. SOFT TISSUES: Normal. OTHER FINDINGS: None. IMPRESSION: No acute fracture
--- NOTE | 2016-11-19 08:52 | CP.PCM.PN ---
<Ki Landaverde - Last Filed: 11/19/16 08:56> Subjective - Date & Time of Evaluation Date of Evaluation: 11/19/16 Time of Evaluation: 08:00 - Subjective Subjective: PGY4 GI Fellow Progress Note Patient seen and examined bedside this morning. The patient states that she was given a hamburger for dinner last night and ate the whole thing. She developed nausea/vomiting afterwards. Denies any diarrhea; one BM since admission. No fever, chills. Does have pain in the left third digit. 12 system ROS performed and negative except where stated. Objective - Vital Signs/Intake and Output Vital Signs (last 24 hours): Temp Pulse Resp BP Pulse Ox 97.6 F 106 H 20 104/58 L 98 11/18/16 20:40 11/18/16 20:40 11/18/16 20:40 11/18/16 20:40 11/18/16 20:40 Intake and Output: 11/19/16 11/19/16 06:59 18:59 Intake Total 1210 Balance 1210 - Medications Medications: Current Medications Acetaminophen/Butalbital/Caffeine (Fioricet) 1 tab PO Q4H PRN PRN Reason: Headache Last Admin: 11/19/16 07:03 Dose: 1 tab Clonazepam (Klonopin) 1 mg PO BID [facility] PRN Reason: Protocol Last Admin: 11/18/16 18:05 Dose: 1 mg Heparin Sodium (Porcine) (Heparin) 5,000 units SC Q8H [facility] PRN Reason: Protocol Last Admin: 11/19/16 06:56 Dose: 5,000 units Hydroxyzine Pamoate (Vistaril) 50 mg PO Q8 PRN; Protocol PRN Reason: Anxiety Last Admin: 11/18/16 16:45 Dose: 50 mg Sodium Chloride (Sodium Chloride 0.9%) 1,000 mls @ 100 mls/hr IV .Q10H [facility] Last Admin: 11/19/16 08:44 Dose: 100 mls/hr Levetiracetam (Keppra) 500 mg PO BID [facility] Last Admin: 11/18/16 18:05 Dose: 500 mg Mirtazapine (Remeron) 45 mg PO HS [facility] Last Admin: 11/18/16 22:01 Dose: 45 mg Ondansetron HCl (Zofran Inj) 4 mg IVP Q4H PRN PRN Reason: Nausea/Vomiting Last Admin: 11/18/16 18:48 Dose: 4 mg Pantoprazole Sodium (Protonix Inj) 40 mg IVP DAILY [facility] Last Admin: 11/18/16 09:20 Dose: 40 mg Quetiapine Fumarate (Seroquel) 25 mg PO HS [facility] PRN Reason: Protocol Venlafaxine HCl (Effexor Xr) 150 mg PO DAILY [facility] Last Admin: 11/18/16 16:47 Dose: 150 mg - Labs Labs: 11/19/16 07:00 11/19/16 07:00 - Constitutional Appears: Non-toxic, No Acute Distress - Eye Exam Eye Exam: EOMI, PERRL - ENT Exam ENT Exam: Mucous Membranes Moist - Respiratory Exam Respiratory Exam: Clear to Ausculation Bilateral. absent: Rales, Rhonchi, Wheezes - Cardiovascular Exam Cardiovascular Exam: RRR, +S1, +S2 - GI/Abdominal Exam GI & Abdominal Exam: Soft, Tenderness (mild tenderness in the epigastric area), Normal Bowel Sounds. absent: Distended, Firm, Guarding, Rigid, Organomegaly - Extremities Exam Extremities Exam: Joint Swelling (left third PIP), Normal Inspection. absent: Pedal Edema - Neurological Exam Neurological Exam: Alert, Awake, Oriented x3 - Psychiatric Exam Psychiatric exam: Anxious - Skin Skin Exam: Dry, Warm Assessment and Plan - Assessment and Plan (Free Text) Assessment: Patient is a 50yo female with PMHx significant for PUD s/p Billroth 2 gastrojejunostomy and vagotomy complicated by gastroparesis, LA class C esophagitis, medication induced (Januvia) pancreatitis, DMT2, prior DVT not on anticoagulation who presented to the ED with nausea, vomiting and diarrhea -Nausea, vomiting - suspect related to gastroparesis -Diarrhea - resolved -Abnormal LFTs - prior extensive w/u including liver bx; resolved -H/O Billroth 2 gastrojejunostomy and vagotomy complicated by gastroparesis -H/O Esophagitis -Anxiety/Depression, improved from prior Plan: -Continue diet as tolerated; stress importance of 6 small meals daily and not over-eating -Increase Protonix to BID dosing -Continue conservative therapy -No indication for repeat endoscopy at this juncture -Zofran PRN; avoid reglan -Avoid opiates as possible -Avoid hepatotoxic medications - overuse of acetaminophen at home -Continue to recommend outpatient follow up with motility specialist at [facility], patient has not followed up <Gian Humphrey - Last Filed: 11/19/16 16:37> Objective - Vital Signs/Intake and Output Vital Signs (last 24 hours): Temp Pulse Resp BP Pulse Ox 97.5 F L 80 20 92/53 L 100 11/19/16 06:00 11/19/16 06:00 11/19/16 06:00 11/19/16 06:00 11/19/16 06:00 Intake and Output: 11/19/16 11/19/16 06:59 18:59 Intake Total 1210 Balance 1210 - Medications Medications: Current Medications Acetaminophen/Butalbital/Caffeine (Fioricet) 1 tab PO Q4H PRN PRN Reason: Headache Last Admin: 11/19/16 16:20 Dose: 1 tab Clonazepam (Klonopin) 1 mg PO BID [facility] PRN Reason: Protocol Last Admin: 11/19/16 09:41 Dose: 1 mg Heparin Sodium (Porcine) (Heparin) 5,000 units SC Q8H [facility] PRN Reason: Protocol Last Admin: 11/19/16 06:56 Dose: 5,000 units Hydroxyzine Pamoate (Vistaril) 50 mg PO Q8 PRN; Protocol PRN Reason: Anxiety Last Admin: 11/19/16 08:59 Dose: 50 mg Sodium Chloride (Sodium Chloride 0.9%) 1,000 mls @ 100 mls/hr IV .Q10H [facility] Last Admin: 11/19/16 08:44 Dose: 100 mls/hr Levetiracetam (Keppra) 500 mg PO BID [facility] Last Admin: 11/19/16 09:41 Dose: 500 mg Lidocaine HCl (Lidocaine 2% Viscous) 10 ml PO BID PRN PRN Reason: Other Mirtazapine (Remeron) 45 mg PO HS [facility] Last Admin: 11/18/16 22:01 Dose: 45 mg Ondansetron HCl (Zofran Inj) 4 mg IVP Q4H PRN PRN Reason: Nausea/Vomiting Last Admin: 11/19/16 10:12 Dose: 4 mg Oxycodone HCl (Oxycodone Immediate Release Tab) 5 mg PO Q6H PRN PRN Reason: Pain, moderate (4-7) Last Admin: 11/19/16 15:16 Dose: 5 mg Pantoprazole Sodium (Protonix Inj) 40 mg IVP BID [facility] Last Admin: 11/19/16 09:41 Dose: 40 mg Quetiapine Fumarate (Seroquel) 25 mg PO HS [facility] PRN Reason: Protocol Venlafaxine HCl (Effexor Xr) 150 mg PO DAILY [facility] Last Admin: 11/19/16 09:41 Dose: 150 mg - Labs Labs: 11/19/16 07:00 11/19/16 07:00 Attending/Attestation - Attestation I have personally seen and examined this patient.: Yes I have fully participated in the care of the patient.: Yes I have reviewed all pertinent clinical information, including history, physical exam and plan: Yes Notes (Text): 11/19/16 16:36 51 year old female with h/o billroth II, gastroparesis admitted with recurrent symptoms. 1. Gastroparesis Plan: -supportive care -hydration -antieemetics -acid suppressive therapy -small frequent meals / low fat
[2016-11-19] MEDS ORDERED: Potassium Chloride 20 mEq ER Tab PO ONE (09:26)
[2016-11-19] MEDS: Venlafaxine 75 mg ER Cap PO SCH (09:41)
[2016-11-19] MEDS ORDERED: Venlafaxine 75 mg ER Cap PO SCH (10:00)
[2016-11-19] MEDS ORDERED: HYDROmorphone 0.5 mg/0.5 ml ISec IVP ONE (10:05)
--- NOTE | 2016-11-19 10:07 | CP.PCM.PN ---
<Georgina Molina - Last Filed: 11/20/16 07:02> Subjective - Date & Time of Evaluation Date of Evaluation: 11/19/16 Time of Evaluation: 09:55 - Subjective Subjective: Pt reports falling on L knee. Had Code star this AM around 9:50, falling from walking because, "I fell because of a napkin on the floor", as per pt. Initially reported falling on left knee and L knee XR ordered. Later in day made b/l hip, neck and shoulder complaint of pain related to fall. Objective - Vital Signs/Intake and Output Vital Signs (last 24 hours): Temp Pulse Resp BP Pulse Ox 97.5 F L 80 20 92/53 L 100 11/19/16 06:00 11/19/16 06:00 11/19/16 06:00 11/19/16 06:00 11/19/16 06:00 Intake and Output: 11/19/16 11/19/16 06:59 18:59 Intake Total 1210 Balance 1210 - Medications Medications: Current Medications Acetaminophen/Butalbital/Caffeine (Fioricet) 1 tab PO Q4H PRN PRN Reason: Headache Last Admin: 11/19/16 07:03 Dose: 1 tab Clonazepam (Klonopin) 1 mg PO BID [facility] PRN Reason: Protocol Last Admin: 11/19/16 09:41 Dose: 1 mg Heparin Sodium (Porcine) (Heparin) 5,000 units SC Q8H [facility] PRN Reason: Protocol Last Admin: 11/19/16 06:56 Dose: 5,000 units Hydromorphone HCl (Dilaudid) 0.5 mg IVP ONCE ONE Stop: 11/19/16 10:06 Hydroxyzine Pamoate (Vistaril) 50 mg PO Q8 PRN; Protocol PRN Reason: Anxiety Last Admin: 11/19/16 08:59 Dose: 50 mg Sodium Chloride (Sodium Chloride 0.9%) 1,000 mls @ 100 mls/hr IV .Q10H [facility] Last Admin: 11/19/16 08:44 Dose: 100 mls/hr Levetiracetam (Keppra) 500 mg PO BID [facility] Last Admin: 11/19/16 09:41 Dose: 500 mg Mirtazapine (Remeron) 45 mg PO HS [facility] Last Admin: 11/18/16 22:01 Dose: 45 mg Ondansetron HCl (Zofran Inj) 4 mg IVP Q4H PRN PRN Reason: Nausea/Vomiting Last Admin: 11/18/16 18:48 Dose: 4 mg Pantoprazole Sodium (Protonix Inj) 40 mg IVP BID [facility] Last Admin: 11/19/16 09:41 Dose: 40 mg Quetiapine Fumarate (Seroquel) 25 mg PO HS [facility] PRN Reason: Protocol Venlafaxine HCl (Effexor Xr) 150 mg PO DAILY [facility] Last Admin: 11/19/16 09:41 Dose: 150 mg - Labs Labs: 11/19/16 07:00 11/19/16 07:00 - Constitutional Appears: Non-toxic, No Acute Distress - Head Exam Head Exam: ATRAUMATIC, NORMOCEPHALIC - Eye Exam Eye Exam: EOMI, Normal appearance - Respiratory Exam Respiratory Exam: Clear to Ausculation Bilateral, NORMAL BREATHING PATTERN - Exam External exam: Ecchymosis. absent: Lesions - Extremities Exam Extremities Exam: Normal Capillary Refill, Tenderness Additional comments: Left knee had reduced passive extension and bruising on anterior surface. - Neurological Exam Neurological Exam: Alert, Awake - Skin Skin Exam: Intact, Normal Color Assessment and Plan - Assessment and Plan (Free Text) Plan: 51 year old F with a PMHx of Diabetic Gastroparesis s/p vagotomy, Epilepsy, anxiety/depression who presented to the ED with complaints of mid epigastric abdominal pain for 3 days with vomiting and diarrhea. Admission to med/surg for gastroparesis and gastroenteritits. Diabetic Gastroparesis: Abd/Pelvis CT w/o po or iv contrast - mural thickening within loops of bowel, wtihout surrounding fluid or inflammation to confirm an enteritis (please see full report) Reglan 5 mg IV achs Zofran 4 mg IV q4h prn Tylenol 650 mg po q6h prn for pain NS 100 cc/hr Erythromycin held for QTC prolongation Gastroenterology, Dr. Humphrey, consulted. Help appreciated. Epilepsy: Keppra 500 mg po bid (home med) Anxiety/Depression: Psych, Dr. Guerra, consulted. Help appreciated. Remeron 45 mg po hs (home medication) Klonopin 1 mg po tid (home medication) Seroquel 100 mg po hs Effexor 150 mg po qd vistaril 50mg po q8 prn Fall on L knee: L knee XR w/o fracture preserved ROM and weight bearing pain control: oxycodone 5mg PO q6 prn Neck and L shoulder XR negative for acute frx Prophylactic Measures: DVT: SCDs, Heparin 5000 units sc q8h GI: Protonix 40 mg IV BID <iVkram Oh MD - Last Filed: 11/20/16 12:02> Objective - Vital Signs/Intake and Output Vital Signs (last 24 hours): Temp Pulse Resp BP Pulse Ox 98.5 F 76 20 104/71 100 11/20/16 06:00 11/20/16 06:00 11/20/16 06:00 11/20/16 06:00 11/20/16 06:00 Intake and Output: 11/20/16 11/20/16 06:59 18:59 Intake Total 700 Output Total 300 Balance 400 - Medications Medications: Current Medications Clonazepam (Klonopin) 1 mg PO BID [facility] PRN Reason: Protocol Last Admin: 11/20/16 09:36 Dose: 1 mg Heparin Sodium (Porcine) (Heparin) 5,000 units SC Q8H [facility] PRN Reason: Protocol Last Admin: 11/20/16 06:20 Dose: 5,000 units Hydromorphone HCl (Dilaudid) 1.5 mg IVP Q6 PRN PRN Reason: Pain, severe (8-10) Stop: 11/20/16 18:01 Hydroxyzine Pamoate (Vistaril) 50 mg PO Q8 PRN; Protocol PRN Reason: Anxiety Last Admin: 11/19/16 08:59 Dose: 50 mg Sodium Chloride (Sodium Chloride 0.9%) 1,000 mls @ 100 mls/hr IV .Q10H [facility] Last Admin: 11/19/16 23:24 Dose: 100 mls/hr Levetiracetam (Keppra) 500 mg PO BID [facility] Last Admin: 11/20/16 09:36 Dose: 500 mg Lidocaine HCl (Lidocaine 2% Viscous) 10 ml PO BID PRN PRN Reason: Other Last Admin: 11/20/16 09:36 Dose: 10 ml Mirtazapine (Remeron) 45 mg PO HS [facility] Last Admin: 11/19/16 21:31 Dose: 45 mg Ondansetron HCl (Zofran Inj) 4 mg IVP Q4H PRN PRN Reason: Nausea/Vomiting Last Admin: 11/19/16 18:06 Dose: 4 mg Oxycodone HCl (Oxycodone Immediate Release Tab) 5 mg PO Q6H PRN PRN Reason: Pain, moderate (4-7) Last Admin: 11/20/16 09:02 Dose: 5 mg Pantoprazole Sodium (Protonix Inj) 40 mg IVP BID [facility] Last Admin: 11/20/16 09:35 Dose: 40 mg Quetiapine Fumarate (Seroquel) 100 mg PO HS [facility] PRN Reason: Protocol Last Admin: 11/19/16 21:32 Dose: 100 mg Venlafaxine HCl (Effexor Xr) 150 mg PO DAILY [facility] Last Admin: 11/20/16 09:36 Dose: 150 mg - Labs Labs: 11/20/16 06:30 11/20/16 06:30 Attending/Attestation - Attestation I have personally seen and examined this patient.: Yes I have fully participated in the care of the patient.: Yes I have reviewed all pertinent clinical information, including history, physical exam and plan: Yes Notes (Text): 11/20/16 11:53 Patient was seen and examined with medical sales representative .Agreed with resident assessment and plan. Management plan was discussed in detail with patient Education was provided. 51 year old F with a PMHx of Diabetic Gastroparesis s/p vagotomy, Epilepsy, anxiety/depression was admitted with vomiting and diarrhea.Patient has chronic abdominal pain history.Her diarrhea was resolved quickly after admission.Stool studies were negative for clostridium difficle colitis.She was tolerating diet at breakfast.She had fall in room yesterday , she was c/o knee and neck pain.X ray of knne was negative for any fracture.Neck X ray was also negative for any new change, she has chronic osteroarthritic changes.X ray of shoulder is also negative.Patient is demanding iv hydromorphone, Patient does not seem to be in pain and due to history of gastropresis, will avoid high dose of Narcotic.She is already on oxycodone 5 mg PO Q 6 hrs PRN pain.Physical therapy is following. ,
--- NOTE | 2016-11-19 11:34 | RAD ---
PROCEDURE: Left Knee Radiographs. HISTORY: Pain. COMPARISON: None. FINDINGS: BONES: Normal. No fracture. JOINTS: Normal. No osteoarthritis. JOINT EFFUSION: None. OTHER FINDINGS: None. IMPRESSION: Normal radiographs of the left knee.
[2016-11-19] MEDS: oxyCODONE 5 mg Immediate Release Tab PO PRN (15:16)
--- NOTE | 2016-11-19 16:02 | RAD ---
PROCEDURE: Cervical Spine Radiographs. HISTORY: Pain. COMPARISON: 10/11/2016 FINDINGS: BONES: Again seen is mild levocurvature in the cervical spine. There is mild degenerative retrolisthesis of C4 on C5. There is straightening of the cervical spine with loss of normal cervical lordosis. There is diffuse bone demineralization. There is no acute fracture. There is moderate degenerative osteoarthrosis at the atlantoaxial joint. The craniocervical junction is normal. DISC SPACES: There is redemonstration of mild multilevel degenerative disc disease with anterior spurring, mild reduced disc heights and mild multilevel facet arthropathy, worse at C5-6. SOFT TISSUES: Normal. No prevertebral soft tissue swelling. OTHER FINDINGS: None. IMPRESSION: No significant interval change in mild multilevel degenerative disc disease, worse at C5-6.
--- NOTE | 2016-11-19 16:16 | RAD ---
PROCEDURE: Radiographs of the Left Shoulder HISTORY: pain after fall COMPARISON: No prior. FINDINGS: BONES: Normal. No fracture. JOINTS: Normal. Glenohumeral and acromioclavicular joints preserved. No osteoarthritis. SOFT TISSUES: Normal. OTHER FINDINGS: None. IMPRESSION: Normal radiographs of the left shoulder.
[2016-11-19] MEDS ORDERED: Apap-Butalbital-Caffeine 325-50-40mg Tab PO ONE (21:02)
[2016-11-19] MEDS: HYDROmorphone 2 mg/ml ISec IVP PRN (21:27)
[2016-11-20] MEDS: HYDROmorphone 2 mg/ml ISec IVP PRN ×2 (01:39→22:07)
[2016-11-20 07:12] LABS: ADD MANUAL DIFF? NO
[2016-11-20 07:17] LABS: BASO # 0.04 K/mm3 (0.0-2.0); BASO % 0.7 % (0.0-3.0); EOS # 0.3 (0.0-0.7); EOS % 5.7 % (1.5-5.0); GRAN # 1.48 (1.4-6.5); HEMATOCRIT 28.1 % (36.0-48.0); LYMPH # 3.4 (1.2-3.4); LYMPH % 61.5 % (22.0-35.0); MEAN CELL VOLUME 82.6 fL (80.0-105.0); MEAN CORPUSCULAR HEMOGLOBIN 26.5 pg (25.0-35.0); MEAN PLATELET VOLUME 9.6 fl (7.0-11.0); MONO # 0.3 (0.1-0.6); MONO % 5.1 % (1.0-6.0); PLATELET COUNT 232 10^3/uL (120.0-450.0); RED CELL DISTRIBUTION WIDTH 16.7 % (11.5-14.5); WHITE BLOOD COUNT 5.5 10^3/ul (4.5-11.0)
[2016-11-20 07:40] LABS: ALB/GLOB RATIO 1.2 (1.1-1.8); ALKALINE PHOSPHATASE 58 U/L (38-133); ALT/SGPT 49 U/L (7-56); AST/SGOT 23 U/L (15-39); BILIRUBIN,TOTAL 0.4 mg/dL (0.2-1.3); BLOOD UREA NITROGEN 12 mg/dL (7-21); CALCIUM 8.1 mg/dL (8.4-10.5); CARBON DIOXIDE 21 mmol/L (21-33); CHLORIDE 115 mmol/L (98-107); GFR AFRICAN-AMERICAN > 60; GLUCOSE,RANDOM 83 mg/dL (70-110); SODIUM 142 mmol/L (132-148); TOTAL PROTEIN 5.5 g/dL (5.8-8.3)
[2016-11-20] MEDS: oxyCODONE 5 mg Immediate Release Tab PO PRN (09:02)
[2016-11-20] MEDS: Venlafaxine 75 mg ER Cap PO SCH (09:36)
--- NOTE | 2016-11-20 09:58 | CP.PCM.PN ---
<[email or web address] - Last Filed: 11/20/16 09:54> Subjective - Date & Time of Evaluation Date of Evaluation: 11/20/16 Time of Evaluation: 07:50 - Subjective Subjective: PGY4 GI Fellow Progress Note Patient seen and examined bedside this morning. The patient admits to pain all over her body following accidental fall yesterday. She denies any nausea/ vomiting and has never had diarrhea since admission. One BM two days ago. Requesting opiates overnight. 12 system ROS performed and negative except where stated. Objective - Vital Signs/Intake and Output Vital Signs (last 24 hours): Temp Pulse Resp BP Pulse Ox 98.5 F 76 20 104/71 100 11/20/16 06:00 11/20/16 06:00 11/20/16 06:00 11/20/16 06:00 11/20/16 06:00 Intake and Output: 11/20/16 11/20/16 06:59 18:59 Intake Total 700 Output Total 300 Balance 400 - Medications Medications: Current Medications Clonazepam (Klonopin) 1 mg PO BID [facility] PRN Reason: Protocol Last Admin: 11/20/16 09:36 Dose: 1 mg Heparin Sodium (Porcine) (Heparin) 5,000 units SC Q8H [facility] PRN Reason: Protocol Last Admin: 11/20/16 06:20 Dose: 5,000 units Hydroxyzine Pamoate (Vistaril) 50 mg PO Q8 PRN; Protocol PRN Reason: Anxiety Last Admin: 11/19/16 08:59 Dose: 50 mg Sodium Chloride (Sodium Chloride 0.9%) 1,000 mls @ 100 mls/hr IV .Q10H [facility] Last Admin: 11/19/16 23:24 Dose: 100 mls/hr Levetiracetam (Keppra) 500 mg PO BID [facility] Last Admin: 11/20/16 09:36 Dose: 500 mg Lidocaine HCl (Lidocaine 2% Viscous) 10 ml PO BID PRN PRN Reason: Other Last Admin: 11/20/16 09:36 Dose: 10 ml Mirtazapine (Remeron) 45 mg PO HS [facility] Last Admin: 11/19/16 21:31 Dose: 45 mg Ondansetron HCl (Zofran Inj) 4 mg IVP Q4H PRN PRN Reason: Nausea/Vomiting Last Admin: 11/19/16 18:06 Dose: 4 mg Oxycodone HCl (Oxycodone Immediate Release Tab) 5 mg PO Q6H PRN PRN Reason: Pain, moderate (4-7) Last Admin: 11/20/16 09:02 Dose: 5 mg Pantoprazole Sodium (Protonix Inj) 40 mg IVP BID [facility] Last Admin: 11/20/16 09:35 Dose: 40 mg Quetiapine Fumarate (Seroquel) 100 mg PO HS [facility] PRN Reason: Protocol Last Admin: 11/19/16 21:32 Dose: 100 mg Venlafaxine HCl (Effexor Xr) 150 mg PO DAILY [facility] Last Admin: 11/20/16 09:36 Dose: 150 mg - Labs Labs: 11/20/16 06:30 11/20/16 06:30 - Constitutional Appears: Non-toxic, No Acute Distress - Eye Exam Eye Exam: EOMI, PERRL - ENT Exam ENT Exam: Mucous Membranes Moist - Respiratory Exam Respiratory Exam: Clear to Ausculation Bilateral. absent: Rales, Rhonchi, Wheezes - Cardiovascular Exam Cardiovascular Exam: RRR, +S1, +S2 - GI/Abdominal Exam GI & Abdominal Exam: Soft, Normal Bowel Sounds. absent: Distended, Firm, Guarding, Rigid, Tenderness, Organomegaly - Extremities Exam Extremities Exam: Normal Inspection. absent: Pedal Edema - Neurological Exam Neurological Exam: Alert, Awake, Oriented x3 - Psychiatric Exam Psychiatric exam: Anxious - Skin Skin Exam: Dry, Warm Assessment and Plan - Assessment and Plan (Free Text) Assessment: Patient is a 50yo female with PMHx significant for PUD s/p Billroth 2 gastrojejunostomy and vagotomy complicated by gastroparesis, LA class C esophagitis, medication induced (Januvia) pancreatitis, DMT2, prior DVT not on anticoagulation who presented to the ED with nausea, vomiting and diarrhea -Nausea, vomiting - suspect related to gastroparesis -Abnormal LFTs - prior extensive w/u including liver bx; resolved -H/O Billroth 2 gastrojejunostomy and vagotomy complicated by gastroparesis -H/O Esophagitis -Anxiety/Depression, improved from prior Plan: -Ate entire tray for breakfast without issue -Continue diet as tolerated -Protonix 40mg BIDAC -Viscous lidocaine BID PRN -Zofran PRN -Avoid opiate medications given motility issues - discussed at length with patient -Avoid hepatotoxic medications - overuse of acetaminophen/acetaminophen-based medications at home -Would benefit from outpatient follow up with motility specialist at [facility] -Will sign off. Thank you for allowing us to participate in the care of your patient. <AllredGian - Last Filed: 11/20/16 10:04> Objective - Vital Signs/Intake and Output Vital Signs (last 24 hours): Temp Pulse Resp BP Pulse Ox 98.5 F 76 20 104/71 100 11/20/16 06:00 11/20/16 06:00 11/20/16 06:00 11/20/16 06:00 11/20/16 06:00 Intake and Output: 11/20/16 11/20/16 06:59 18:59 Intake Total 700 Output Total 300 Balance 400 - Medications Medications: Current Medications Clonazepam (Klonopin) 1 mg PO BID [facility] PRN Reason: Protocol Last Admin: 11/20/16 09:36 Dose: 1 mg Heparin Sodium (Porcine) (Heparin) 5,000 units SC Q8H [facility] PRN Reason: Protocol Last Admin: 11/20/16 06:20 Dose: 5,000 units Hydroxyzine Pamoate (Vistaril) 50 mg PO Q8 PRN; Protocol PRN Reason: Anxiety Last Admin: 11/19/16 08:59 Dose: 50 mg Sodium Chloride (Sodium Chloride 0.9%) 1,000 mls @ 100 mls/hr IV .Q10H [facility] Last Admin: 11/19/16 23:24 Dose: 100 mls/hr Levetiracetam (Keppra) 500 mg PO BID [facility] Last Admin: 11/20/16 09:36 Dose: 500 mg Lidocaine HCl (Lidocaine 2% Viscous) 10 ml PO BID PRN PRN Reason: Other Last Admin: 11/20/16 09:36 Dose: 10 ml Mirtazapine (Remeron) 45 mg PO HS [facility] Last Admin: 11/19/16 21:31 Dose: 45 mg Ondansetron HCl (Zofran Inj) 4 mg IVP Q4H PRN PRN Reason: Nausea/Vomiting Last Admin: 11/19/16 18:06 Dose: 4 mg Oxycodone HCl (Oxycodone Immediate Release Tab) 5 mg PO Q6H PRN PRN Reason: Pain, moderate (4-7) Last Admin: 11/20/16 09:02 Dose: 5 mg Pantoprazole Sodium (Protonix Inj) 40 mg IVP BID [facility] Last Admin: 11/20/16 09:35 Dose: 40 mg Quetiapine Fumarate (Seroquel) 100 mg PO HS [facility] PRN Reason: Protocol Last Admin: 11/19/16 21:32 Dose: 100 mg Venlafaxine HCl (Effexor Xr) 150 mg PO DAILY [facility] Last Admin: 11/20/16 09:36 Dose: 150 mg - Labs Labs: 11/20/16 06:30 11/20/16 06:30 Attending/Attestation - Attestation I have personally seen and examined this patient.: Yes I have fully participated in the care of the patient.: Yes I have reviewed all pertinent clinical information, including history, physical exam and plan: Yes Notes (Text): 11/20/16 10:01 50 year old female with h/o PUD s/p Billroth II, h/o gastroparesis, h/o gastritis/esophagitis, h/o pancreatitis, DM2, h/o DVT a/w recurrent n/v. 1. Gastroparesis 2. History of PUD 3. History of esophagitis Plan: -improved from GI standpoint, tolerated breakfast without pain or vomiting -these recurrent episodes appear to be triggered by stress -would recommend supportive care -protonix BID for now -viscous lidocaine -small frequent meals -will sign off
[2016-11-20] MEDS ORDERED: HYDROmorphone 2 mg/ml ISec IVP PRN ×2 (11:21→21:51)
[2016-11-20] MEDS ORDERED: Venlafaxine 75 mg ER Cap PO ONE (12:18)
--- NOTE | 2016-11-20 12:19 | RAD ---
PROCEDURE: Right Knee Radiographs. HISTORY: fall COMPARISON: None. FINDINGS: BONES: Normal. No fracture. JOINTS: Normal. No osteoarthritis. JOINT EFFUSION: None. OTHER FINDINGS: None. IMPRESSION: Normal radiographs of the right knee.
--- NOTE | 2016-11-20 12:23 | RAD ---
PROCEDURE: Radiographs of the pelvis and bilateral hips HISTORY: fall COMPARISON: None. FINDINGS: BONES: Pelvis: Unremarkable. Right hip:Unremarkable. Left hip:Unremarkable. JOINTS: Right hip: Unremarkable. Left hip: Unremarkable. Sacroiliac Joints: Unremarkable. Pubic symphysis: Degenerative changes and sclerosis in the symphysis pubis SOFT TISSUES: Normal. OTHER FINDINGS: None. IMPRESSION: Mild degenerative changes in the symphysis pubis
--- NOTE | 2016-11-20 12:25 | RAD ---
PROCEDURE: Radiographs of the bilateral femurs. HISTORY: fall COMPARISON: None. FINDINGS: BONES: Right Femur: Normal. No fracture. Left Femur: Normal. No fracture. SOFT TISSUES: Right Femur: Normal. Left Femur: Normal. OTHER FINDINGS: None. IMPRESSION: Normal radiographs of the femurs.
--- NOTE | 2016-11-20 16:07 | CP.PCM.PN ---
<Georgina Molina - Last Filed: 11/20/16 17:57> Subjective - Date & Time of Evaluation Date of Evaluation: 11/20/16 Time of Evaluation: 07:55 - Subjective Subjective: Pt seen and evaluated at bedside. Reports vomiting four times overnight, contradictory to nursing report of no vomiting overnight. Pt also observed inducing vomiting with finger by nurse and charge nurse, see nursing note from same day. Otherwise pt denies SOB, chest pain, urinary or stool symptoms. Afebrile overnight. Objective - Vital Signs/Intake and Output Vital Signs (last 24 hours): Temp Pulse Resp BP Pulse Ox 98.5 F 76 20 104/71 100 11/20/16 06:00 11/20/16 06:00 11/20/16 06:00 11/20/16 06:00 11/20/16 06:00 Intake and Output: 11/20/16 11/20/16 06:59 18:59 Intake Total 700 720 Output Total 300 Balance 400 720 - Medications Medications: Current Medications Clonazepam (Klonopin) 1 mg PO BID [facility] PRN Reason: Protocol Last Admin: 11/20/16 09:36 Dose: 1 mg Heparin Sodium (Porcine) (Heparin) 5,000 units SC Q8H [facility] PRN Reason: Protocol Last Admin: 11/20/16 06:20 Dose: 5,000 units Hydromorphone HCl (Dilaudid) 1.5 mg IVP Q6 PRN PRN Reason: Pain, severe (8-10) Stop: 11/20/16 18:01 Last Admin: 11/20/16 12:22 Dose: 1.5 mg Hydroxyzine Pamoate (Vistaril) 50 mg PO Q8 PRN; Protocol PRN Reason: Anxiety Last Admin: 11/20/16 15:11 Dose: 50 mg Sodium Chloride (Sodium Chloride 0.9%) 1,000 mls @ 100 mls/hr IV .Q10H [facility] Last Admin: 11/19/16 23:24 Dose: 100 mls/hr Levetiracetam (Keppra) 500 mg PO BID [facility] Last Admin: 11/20/16 09:36 Dose: 500 mg Lidocaine HCl (Lidocaine 2% Viscous) 10 ml PO BID PRN PRN Reason: Other Last Admin: 11/20/16 09:36 Dose: 10 ml Mirtazapine (Remeron) 45 mg PO HS [facility] Last Admin: 11/19/16 21:31 Dose: 45 mg Ondansetron HCl (Zofran Inj) 4 mg IVP Q4H PRN PRN Reason: Nausea/Vomiting Last Admin: 11/19/16 18:06 Dose: 4 mg Oxycodone HCl (Oxycodone Immediate Release Tab) 5 mg PO Q6H PRN PRN Reason: Pain, moderate (4-7) Last Admin: 11/20/16 09:02 Dose: 5 mg Pantoprazole Sodium (Protonix Inj) 40 mg IVP BID [facility] Last Admin: 11/20/16 09:35 Dose: 40 mg Quetiapine Fumarate (Seroquel) 100 mg PO HS [facility] PRN Reason: Protocol Last Admin: 11/19/16 21:32 Dose: 100 mg Venlafaxine HCl (Effexor Xr) 150 mg PO DAILY [facility] Last Admin: 11/20/16 09:36 Dose: 150 mg - Labs Labs: 11/20/16 06:30 11/20/16 06:30 - Additional Findings Additional findings: - Constitutional Appears: No Acute Distress - Head Exam Head Exam: ATRAUMATIC, NORMOCEPHALIC - Eye Exam Eye Exam: EOMI, PERRL - ENT Exam ENT Exam: Mucous Membranes Dry. absent: Mucous Membranes Moist - Respiratory Exam Respiratory Exam: Clear to Auscultation Bilateral. absent: Rales, Rhonchi, Wheezes - Cardiovascular Exam Cardiovascular Exam: not Tachycardia, +S1, +S2 - GI/Abdominal Exam GI & Abdominal Exam: Soft, Tenderness. absent: Distended, Firm, Guarding - Extremities Exam Extremities exam: Positive for pedal pulses. Full passive range of motion for L upper extremity. Negative for: pedal edema - Neurological Exam Neurological exam: Alert, Oriented x3 - Psychiatric Exam Psychiatric exam: Normal Affect, Normal Mood - Skin Skin Exam: intact, Warm Assessment and Plan - Assessment and Plan (Free Text) Plan: 51 year old F with a PMHx of Diabetic Gastroparesis s/p vagotomy, Epilepsy, anxiety/depression who presented to the ED with complaints of mid epigastric abdominal pain for 3 days with vomiting and diarrhea. Admission to med/surg for gastroparesis and gastroenteritits. Diarrhea has resolved and no confirmable vomiting within past 24 hours. Diabetic Gastroparesis: Abd/Pelvis CT w/o po or iv contrast - mural thickening within loops of bowel, wtihout surrounding fluid or inflammation to confirm an enteritis (please see full report) Zofran 4 mg IV q4h prn Gastroenterology, Dr. Humphrey, consulted. Help appreciated. Epilepsy: Keppra 500 mg po bid (home med) Anxiety/Depression: Psych, Dr. Guerra, consulted. Help appreciated. Remeron 45 mg po hs (home medication) Klonopin 1 mg po tid (home medication) Seroquel 100 mg po hs Effexor 150 mg po qd vistaril 50mg po q8 prn Fall on L knee: L knee XR w/o fracture preserved ROM and weight bearing pain control: oxycodone 5mg PO q6 prn Neck and L shoulder XR negative for acute frx R knee, and B/L hip and femur XRs are negative for frx Prophylactic Measures: DVT: SCDs, Heparin 5000 units sc q8h GI: Protonix 40 mg IV BID PT eval has recommendation of TCU. ROSSI pending. <Althea MAIN,Vikram - Last Filed: 11/21/16 12:55> Objective - Vital Signs/Intake and Output Vital Signs (last 24 hours): Temp Pulse Resp BP Pulse Ox 97.8 F 81 18 128/82 97 11/21/16 11:24 11/21/16 11:24 11/21/16 11:24 11/21/16 11:24 11/21/16 11:24 Intake and Output: 11/21/16 11/21/16 06:59 18:59 Intake Total 1240 Output Total 1000 Balance 240 - Medications Medications: Current Medications Acetaminophen/Butalbital/Caffeine (Fioricet) 1 tab PO Q4H PRN PRN Reason: Migraine headache Last Admin: 11/21/16 11:31 Dose: 1 tab Clonazepam (Klonopin) 1 mg PO BID [facility] PRN Reason: Protocol Last Admin: 11/21/16 10:23 Dose: 1 mg Heparin Sodium (Porcine) (Heparin) 5,000 units SC Q8H [facility] PRN Reason: Protocol Last Admin: 11/20/16 22:05 Dose: 5,000 units Hydromorphone HCl (Dilaudid) 0.5 mg IVP Q6H PRN PRN Reason: Pain, severe (8-10) Last Admin: 11/21/16 11:51 Dose: 0.5 mg Hydroxyzine Pamoate (Vistaril) 50 mg PO Q8 PRN; Protocol PRN Reason: Anxiety Last Admin: 11/21/16 10:26 Dose: 50 mg Sodium Chloride (Sodium Chloride 0.9%) 1,000 mls @ 100 mls/hr IV .Q10H [facility] Last Admin: 11/19/16 23:24 Dose: 100 mls/hr Levetiracetam (Keppra) 500 mg PO BID [facility] Last Admin: 11/21/16 10:23 Dose: 500 mg Lidocaine HCl (Lidocaine 2% Viscous) 10 ml PO BID PRN PRN Reason: Other Last Admin: 11/20/16 09:36 Dose: 10 ml Mirtazapine (Remeron) 45 mg PO HS [facility] Last Admin: 11/20/16 22:06 Dose: 45 mg Ondansetron HCl (Zofran Inj) 4 mg IVP Q4H PRN PRN Reason: Nausea/Vomiting Last Admin: 11/19/16 18:06 Dose: 4 mg Oxycodone HCl (Oxycodone Immediate Release Tab) 5 mg PO Q6H PRN PRN Reason: Pain, moderate (4-7) Last Admin: 11/21/16 08:24 Dose: 5 mg Pantoprazole Sodium (Protonix Inj) 40 mg IVP BID [facility] Last Admin: 11/21/16 10:24 Dose: 40 mg Quetiapine Fumarate (Seroquel) 100 mg PO [facility] PRN Reason: Protocol Last Admin: 11/20/16 22:06 Dose: 100 mg Venlafaxine HCl (Effexor Xr) 150 mg PO DAILY [facility] Last Admin: 11/21/16 10:23 Dose: 150 mg - Labs Labs: 11/20/16 06:30 11/20/16 06:30 Attending/Attestation - Attestation I have personally seen and examined this patient.: Yes I have fully participated in the care of the patient.: Yes I have reviewed all pertinent clinical information, including history, physical exam and plan: Yes Notes (Text): 11/21/16 12:53 Patient was seen and examined with medical fee clerk .Agreed with resident assessment and plan. Patient is a 50yo female with PMHx significant for PUD s/p Billroth 2 gastrojejunostomy and vagotomy complicated by gastroparesis, LA class C esophagitis, medication induced (Januvia) pancreatitis, DMT2, prior DVT not on anticoagulation who presented to the ED with nausea, vomiting and diarrhea.Nausea and vomiting has resolved.Patient had fall yesterday, X rays of neck, shoulder , knee and hip are negative for any fracture.Patient was noticed to have self induced vomiting by Nursing staff on floor, has history of Narcotic abuse, not participating in PT, Can be discharged home if OK by Physical therapy. Management plan was discussed in detail with patient Education was provided.
[2016-11-20] MEDS: Apap-Butalbital-Caffeine 325-50-40mg Tab PO PRN (22:04)
--- NOTE | 2016-11-20 22:10 | CP.PCM.PN ---
Subjective - Date & Time of Evaluation Date of Evaluation: 11/20/16 Time of Evaluation: 22:09 - Subjective Subjective: # 24 angiocath was inserted in right shoulder area. Dx:Poor venous access. Objective - Vital Signs/Intake and Output Vital Signs (last 24 hours): Temp Pulse Resp BP Pulse Ox 98.5 F 76 20 104/71 100 11/20/16 06:00 11/20/16 06:00 11/20/16 06:00 11/20/16 06:00 11/20/16 06:00 Intake and Output: 11/20/16 11/21/16 18:59 06:59 Intake Total 720 Balance 720 - Medications Medications: Current Medications Acetaminophen/Butalbital/Caffeine (Fioricet) 1 tab PO Q4H PRN PRN Reason: Migraine headache Clonazepam (Klonopin) 1 mg PO BID [facility] PRN Reason: Protocol Last Admin: 11/20/16 18:07 Dose: 1 mg Heparin Sodium (Porcine) (Heparin) 5,000 units SC Q8H [facility] PRN Reason: Protocol Last Admin: 11/20/16 16:18 Dose: 5,000 units Hydromorphone HCl (Dilaudid) 1.5 mg IVP Q4H PRN PRN Reason: Pain, moderate (4-7) Hydroxyzine Pamoate (Vistaril) 50 mg PO Q8 PRN; Protocol PRN Reason: Anxiety Last Admin: 11/20/16 15:11 Dose: 50 mg Sodium Chloride (Sodium Chloride 0.9%) 1,000 mls @ 100 mls/hr IV .Q10H [facility] Last Admin: 11/19/16 23:24 Dose: 100 mls/hr Levetiracetam (Keppra) 500 mg PO BID [facility] Last Admin: 11/20/16 18:08 Dose: 500 mg Lidocaine HCl (Lidocaine 2% Viscous) 10 ml PO BID PRN PRN Reason: Other Last Admin: 11/20/16 09:36 Dose: 10 ml Mirtazapine (Remeron) 45 mg PO HS [facility] Last Admin: 11/19/16 21:31 Dose: 45 mg Ondansetron HCl (Zofran Inj) 4 mg IVP Q4H PRN PRN Reason: Nausea/Vomiting Last Admin: 11/19/16 18:06 Dose: 4 mg Oxycodone HCl (Oxycodone Immediate Release Tab) 5 mg PO Q6H PRN PRN Reason: Pain, moderate (4-7) Last Admin: 11/20/16 09:02 Dose: 5 mg Pantoprazole Sodium (Protonix Inj) 40 mg IVP BID [facility] Last Admin: 11/20/16 18:08 Dose: Not Given Quetiapine Fumarate (Seroquel) 100 mg PO HS [facility] PRN Reason: Protocol Last Admin: 11/19/16 21:32 Dose: 100 mg Venlafaxine HCl (Effexor Xr) 150 mg PO DAILY [facility] Last Admin: 11/20/16 09:36 Dose: 150 mg - Labs Labs: 11/20/16 06:30 11/20/16 06:30
[2016-11-21] MEDS: HYDROmorphone 2 mg/ml ISec IVP PRN (07:35)
[2016-11-21] MEDS: oxyCODONE 5 mg Immediate Release Tab PO PRN ×3 (08:24→21:37)
[2016-11-21] MEDS: Venlafaxine 75 mg ER Cap PO SCH (10:23)
[2016-11-21] MEDS: Apap-Butalbital-Caffeine 325-50-40mg Tab PO PRN ×4 (11:31→23:36)
[2016-11-21] MEDS: HYDROmorphone 0.5 mg/0.5 ml ISec IVP PRN ×2 (11:51→17:48)
[2016-11-21 13:13] LABS: ADD MANUAL DIFF? NO
[2016-11-21 13:23] LABS: BASO # 0.02 K/mm3 (0.0-2.0); BASO % 0.4 % (0.0-3.0); EOS # 0.3 (0.0-0.7); EOS % 5.1 % (1.5-5.0); GRAN # 2.42 (1.4-6.5); GRAN % 43.6 % (50.0-68.0); HEMATOCRIT 28.2 % (36.0-48.0); LYMPH # 2.5 (1.2-3.4); LYMPH % 45.8 % (22.0-35.0); MEAN CELL VOLUME 83.2 fL (80.0-105.0); MEAN CORPUSCULAR HEMOGLOBIN 26.5 pg (25.0-35.0); MEAN CORPUSCULAR HGB CONC 31.9 g/dl (31.0-37.0); MEAN PLATELET VOLUME 9.9 fl (7.0-11.0); MONO # 0.3 (0.1-0.6); MONO % 5.1 % (1.0-6.0); PLATELET COUNT 235 10^3/uL (120.0-450.0); RED CELL DISTRIBUTION WIDTH 16.4 % (11.5-14.5); WHITE BLOOD COUNT 5.5 10^3/ul (4.5-11.0)
[2016-11-21 13:31] LABS: ALB/GLOB RATIO 1.2 (1.1-1.8); ALKALINE PHOSPHATASE 67 U/L (38-133); ALT/SGPT 48 U/L (7-56); AST/SGOT 26 U/L (15-39); BILIRUBIN,TOTAL 0.1 mg/dL (0.2-1.3); BLOOD UREA NITROGEN 12 mg/dL (7-21); CALCIUM 8.2 mg/dL (8.4-10.5); CARBON DIOXIDE 20 mmol/L (21-33); CHLORIDE 111 mmol/L (95-110); GFR AFRICAN-AMERICAN > 60; GLUCOSE,RANDOM 176 mg/dL (70-110); POTASSIUM 4.4 mmol/L (3.6-5.0); SODIUM 139 mmol/L (132-148); TOTAL PROTEIN 5.4 g/dL (5.8-8.3)
--- NOTE | 2016-11-21 16:21 | CP.PCM.PN ---
<Georgina Molina - Last Filed: 11/21/16 16:23> Subjective - Date & Time of Evaluation Date of Evaluation: 11/21/16 Time of Evaluation: 08:40 - Subjective Subjective: Pt seen and evaluated at bedside. Continues to have L hip pain. As per nursing , no vomiting episodes overnight. Afebrile. Objective - Vital Signs/Intake and Output Vital Signs (last 24 hours): Temp Pulse Resp BP Pulse Ox 97.8 F 81 18 128/82 97 11/21/16 11:24 11/21/16 11:24 11/21/16 11:24 11/21/16 11:24 11/21/16 11:24 Intake and Output: 11/21/16 11/21/16 06:59 18:59 Intake Total 1240 720 Output Total 1000 Balance 240 720 - Medications Medications: Current Medications Acetaminophen/Butalbital/Caffeine (Fioricet) 1 tab PO Q4H PRN PRN Reason: Migraine headache Last Admin: 11/21/16 15:22 Dose: 1 tab Clonazepam (Klonopin) 1 mg PO BID [facility] PRN Reason: Protocol Last Admin: 11/21/16 10:23 Dose: 1 mg Heparin Sodium (Porcine) (Heparin) 5,000 units SC Q8H [facility] PRN Reason: Protocol Last Admin: 11/21/16 13:57 Dose: 5,000 units Hydromorphone HCl (Dilaudid) 0.5 mg IVP Q6H PRN PRN Reason: Pain, severe (8-10) Last Admin: 11/21/16 11:51 Dose: 0.5 mg Hydroxyzine Pamoate (Vistaril) 50 mg PO Q8 PRN; Protocol PRN Reason: Anxiety Last Admin: 11/21/16 10:26 Dose: 50 mg Sodium Chloride (Sodium Chloride 0.9%) 1,000 mls @ 100 mls/hr IV .Q10H [facility] Last Admin: 11/19/16 23:24 Dose: 100 mls/hr Levetiracetam (Keppra) 500 mg PO BID [facility] Last Admin: 11/21/16 10:23 Dose: 500 mg Lidocaine HCl (Lidocaine 2% Viscous) 10 ml PO BID PRN PRN Reason: Other Last Admin: 11/20/16 09:36 Dose: 10 ml Mirtazapine (Remeron) 45 mg PO HS [facility] Last Admin: 11/20/16 22:06 Dose: 45 mg Ondansetron HCl (Zofran Inj) 4 mg IVP Q4H PRN PRN Reason: Nausea/Vomiting Last Admin: 11/19/16 18:06 Dose: 4 mg Oxycodone HCl (Oxycodone Immediate Release Tab) 5 mg PO Q6H PRN PRN Reason: Pain, moderate (4-7) Last Admin: 11/21/16 15:36 Dose: 5 mg Pantoprazole Sodium (Protonix Inj) 40 mg IVP BID [facility] Last Admin: 11/21/16 10:24 Dose: 40 mg Quetiapine Fumarate (Seroquel) 100 mg PO HS [facility] PRN Reason: Protocol Last Admin: 11/20/16 22:06 Dose: 100 mg Venlafaxine HCl (Effexor Xr) 150 mg PO DAILY [facility] Last Admin: 11/21/16 10:23 Dose: 150 mg - Labs Labs: 11/21/16 13:12 11/21/16 13:12 - Additional Findings Additional findings: - Constitutional Appears: No Acute Distress - Head Exam Head Exam: ATRAUMATIC, NORMOCEPHALIC - Eye Exam Eye Exam: EOMI, PERRL - ENT Exam ENT Exam: Mucous Membranes Dry. absent: Mucous Membranes Moist - Respiratory Exam Respiratory Exam: Clear to Auscultation Bilateral. absent: Rales, Rhonchi, Wheezes - Cardiovascular Exam Cardiovascular Exam: not bradycardia, +S1, +S2 - GI/Abdominal Exam GI & Abdominal Exam: Soft, Tenderness. absent: Distended, Firm, Guarding - Extremities Exam Extremities exam: Positive for pedal pulses. Negative for: pedal edema - Neurological Exam Neurological exam: Alert, Oriented x3 - Psychiatric Exam Psychiatric exam: Normal Affect, Normal Mood - Skin Skin Exam: Intact, Warm Assessment and Plan - Assessment and Plan (Free Text) Plan: 51 year old F with a PMHx of Diabetic Gastroparesis s/p vagotomy, Epilepsy, anxiety/depression who presented to the ED with complaints of mid epigastric abdominal pain for 3 days with vomiting and diarrhea. Admission to med/surg for gastroparesis and gastroenteritits. Diarrhea has resolved and no confirmable vomiting within past 48 hours. Diabetic Gastroparesis: Abd/Pelvis CT w/o po or iv contrast - mural thickening within loops of bowel, wtihout surrounding fluid or inflammation to confirm an enteritis (please see full report) Zofran 4 mg IV q4h prn Gastroenterology, Dr. Humphrey, consulted. Help appreciated. Epilepsy: Keppra 500 mg po bid (home med) Anxiety/Depression: Psych, Dr. Guerra, consulted. Help appreciated. Remeron 45 mg po hs (home medication) Klonopin 1 mg po tid (home medication) Seroquel 100 mg po hs Effexor 150 mg po qd vistaril 50mg po q8 prn Fall on L knee: L knee XR w/o fracture preserved ROM and weight bearing pain control: oxycodone 5mg PO q6 prn Neck and L shoulder XR negative for acute frx R knee, and B/L hip and femur XRs are negative for frx Prophylactic Measures: DVT: SCDs, Heparin 5000 units sc q8h GI: Protonix 40 mg IV BID PT eval has recommendation of TCU. ROSSI pending. <Althea MAIN,Vikram - Last Filed: 11/21/16 17:47> Objective - Vital Signs/Intake and Output Vital Signs (last 24 hours): Temp Pulse Resp BP Pulse Ox 97.8 F 81 18 128/82 97 11/21/16 11:24 11/21/16 11:24 11/21/16 11:24 11/21/16 11:24 11/21/16 11:24 Intake and Output: 11/21/16 11/21/16 06:59 18:59 Intake Total 1240 720 Output Total 1000 Balance 240 720 - Medications Medications: Current Medications Acetaminophen/Butalbital/Caffeine (Fioricet) 1 tab PO Q4H PRN PRN Reason: Migraine headache Last Admin: 11/21/16 15:22 Dose: 1 tab Clonazepam (Klonopin) 1 mg PO BID [facility] PRN Reason: Protocol Last Admin: 11/21/16 10:23 Dose: 1 mg Heparin Sodium (Porcine) (Heparin) 5,000 units SC Q8H [facility] PRN Reason: Protocol Last Admin: 11/21/16 13:57 Dose: 5,000 units Hydromorphone HCl (Dilaudid) 0.5 mg IVP Q6H PRN PRN Reason: Pain, severe (8-10) Last Admin: 11/21/16 11:51 Dose: 0.5 mg Hydroxyzine Pamoate (Vistaril) 50 mg PO Q8 PRN; Protocol PRN Reason: Anxiety Last Admin: 11/21/16 10:26 Dose: 50 mg Sodium Chloride (Sodium Chloride 0.9%) 1,000 mls @ 100 mls/hr IV .Q10H [facility] Last Admin: 11/19/16 23:24 Dose: 100 mls/hr Levetiracetam (Keppra) 500 mg PO BID [facility] Last Admin: 11/21/16 10:23 Dose: 500 mg Lidocaine HCl (Lidocaine 2% Viscous) 10 ml PO BID PRN PRN Reason: Other Last Admin: 11/20/16 09:36 Dose: 10 ml Mirtazapine (Remeron) 45 mg PO HS [facility] Last Admin: 11/20/16 22:06 Dose: 45 mg Ondansetron HCl (Zofran Inj) 4 mg IVP Q4H PRN PRN Reason: Nausea/Vomiting Last Admin: 11/19/16 18:06 Dose: 4 mg Oxycodone HCl (Oxycodone Immediate Release Tab) 5 mg PO Q6H PRN PRN Reason: Pain, moderate (4-7) Last Admin: 11/21/16 15:36 Dose: 5 mg Pantoprazole Sodium (Protonix Inj) 40 mg IVP BID [facility] Last Admin: 11/21/16 10:24 Dose: 40 mg Quetiapine Fumarate (Seroquel) 100 mg PO [facility] PRN Reason: Protocol Last Admin: 11/20/16 22:06 Dose: 100 mg Venlafaxine HCl (Effexor Xr) 150 mg PO DAILY [facility] Last Admin: 11/21/16 10:23 Dose: 150 mg - Labs Labs: 11/21/16 13:12 11/21/16 13:12 Attending/Attestation - Attestation I have personally seen and examined this patient.: Yes I have fully participated in the care of the patient.: Yes I have reviewed all pertinent clinical information, including history, physical exam and plan: Yes Notes (Text): 11/21/16 17:45 Patient was seen and examined with medical coding auditor .Agreed with resident assessment and plan. Patient is a 50yo female with PMHx significant for PUD s/p Billroth 2 gastrojejunostomy and vagotomy complicated by gastroparesis, LA class C esophagitis, medication induced (Januvia) pancreatitis, DMT2, prior DVT not on anticoagulation who presented to the ED with nausea, vomiting and diarrhea.Nausea and vomiting has resolved.Patient had fall 2 days , X rays of neck, shoulder , knee and hip are negative for any fracture.Patient was found to be walking on floor by nursing staff, upset that her pain medications has been changed, does not seem to be in distress. Patient was noticed to have self induced vomiting by Nursing staff on floor yesterday, This evening patient was c/o lower chest pain, increasing with deep inspiration , has chest wall tenderness, chest pain is atypical, we will order EKG and serial troponin. Management plan was discussed in detail with patient Education was provided.
[2016-11-21] MEDS: Sodium Chloride 0.9% 1,000 ML IV SCH (17:51)
[2016-11-22] MEDS: oxyCODONE 5 mg Immediate Release Tab PO PRN ×3 (05:45→21:25)
[2016-11-22] MEDS: Apap-Butalbital-Caffeine 325-50-40mg Tab PO PRN ×2 (05:46→09:47)
[2016-11-22] MEDS: Venlafaxine 75 mg ER Cap PO SCH (09:47)
[2016-11-22] MEDS: HYDROmorphone 0.5 mg/0.5 ml ISec IVP PRN ×2 (11:21→17:14)
[2016-11-22] MEDS: Lidocaine 5% Patch TD SCH (14:32)
--- NOTE | 2016-11-22 19:27 | CP.PCM.PN ---
<Georgina Molina - Last Filed: 11/23/16 06:49> Subjective - Date & Time of Evaluation Date of Evaluation: 11/22/16 Time of Evaluation: 09:55 - Subjective Subjective: Pt seen and evaluated at bedside. Pt continues to have left hip pain. No reported vomiting. Afebrile overnight. Objective - Vital Signs/Intake and Output Vital Signs (last 24 hours): Temp Pulse Resp BP Pulse Ox 98.9 F 86 20 130/82 97 11/22/16 16:39 11/22/16 16:39 11/22/16 16:39 11/22/16 16:39 11/22/16 16:39 Intake and Output: 11/22/16 11/23/16 18:59 06:59 Intake Total 720 Balance 720 - Medications Medications: Current Medications Clonazepam (Klonopin) 1 mg PO BID [facility] PRN Reason: Protocol Last Admin: 11/22/16 17:13 Dose: 1 mg Heparin Sodium (Porcine) (Heparin) 5,000 units SC Q8H [facility] PRN Reason: Protocol Last Admin: 11/22/16 14:32 Dose: 5,000 units Hydroxyzine Pamoate (Vistaril) 50 mg PO Q8 PRN; Protocol PRN Reason: Anxiety Last Admin: 11/22/16 09:47 Dose: 50 mg Levetiracetam (Keppra) 500 mg PO BID [facility] Last Admin: 11/22/16 17:13 Dose: 500 mg Lidocaine (Lidoderm) 1 ea TD DAILY [facility] Last Admin: 11/22/16 14:32 Dose: 1 ea Lidocaine HCl (Lidocaine 2% Viscous) 10 ml PO BID PRN PRN Reason: Other Last Admin: 11/20/16 09:36 Dose: 10 ml Mirtazapine (Remeron) 45 mg PO HS [facility] Last Admin: 11/21/16 22:17 Dose: 45 mg Ondansetron HCl (Zofran Inj) 4 mg IVP Q4H PRN PRN Reason: Nausea/Vomiting Last Admin: 11/19/16 18:06 Dose: 4 mg Oxycodone HCl (Oxycodone Immediate Release Tab) 5 mg PO Q4H PRN PRN Reason: Pain, moderate (4-7) Last Admin: 11/22/16 14:36 Dose: 5 mg Pantoprazole Sodium (Protonix Inj) 40 mg IVP BID [facility] Last Admin: 11/22/16 17:13 Dose: 40 mg Quetiapine Fumarate (Seroquel) 100 mg PO HS [facility] PRN Reason: Protocol Last Admin: 11/21/16 22:19 Dose: 100 mg Venlafaxine HCl (Effexor Xr) 150 mg PO DAILY [facility] Last Admin: 11/22/16 09:47 Dose: 150 mg - Labs Labs: 11/21/16 13:12 11/21/16 13:12 - Additional Findings Additional findings: - Constitutional Appears: No Acute Distress - Head Exam Head Exam: ATRAUMATIC, NORMOCEPHALIC - Eye Exam Eye Exam: EOMI, PERRL - Respiratory Exam Respiratory Exam: Clear to Auscultation Bilateral. absent: Rales, Rhonchi, Wheezes - Cardiovascular Exam Cardiovascular Exam: not bradycardia, +S1, +S2 - GI/Abdominal Exam GI & Abdominal Exam: Soft, Tenderness. absent: Distended, Firm, Guarding - Extremities Exam Extremities exam: Positive for pedal pulses. Negative for: pedal edema - Neurological Exam Neurological exam: Alert, Oriented x3 - Psychiatric Exam Psychiatric exam: Normal Affect, Normal Mood - Skin Skin Exam: Intact, Warm Assessment and Plan - Assessment and Plan (Free Text) Plan: 51 year old F with a PMHx of Diabetic Gastroparesis s/p vagotomy, Epilepsy, anxiety/depression who presented to the ED with complaints of mid epigastric abdominal pain for 3 days with vomiting and diarrhea. Admission to med/surg for gastroparesis and gastroenteritits. Diarrhea has resolved and no confirmable vomiting within past 72 hours. Diabetic Gastroparesis: Abd/Pelvis CT w/o po or iv contrast - mural thickening within loops of bowel, wtihout surrounding fluid or inflammation to confirm an enteritis (please see full report) Zofran 4 mg IV q4h prn Gastroenterology, Dr. Humphrey, consulted. Help appreciated. Epilepsy: Keppra 500 mg po bid (home med) Anxiety/Depression: Psych, Dr. Guerra, consulted. Help appreciated. Remeron 45 mg po hs (home medication) Klonopin 1 mg po tid (home medication) Seroquel 100 mg po hs Effexor 150 mg po qd vistaril 50mg po q8 prn Fall on L knee: L knee XR w/o fracture preserved ROM and weight bearing pain control: oxycodone 5mg PO q6 prn Neck and L shoulder XR negative for acute frx R knee, and B/L hip and femur XRs are negative for frx Prophylactic Measures: DVT: SCDs, Heparin 5000 units sc q8h GI: Protonix 40 mg IV BID PT eval has recommendation of TCU. ROSSI pending. <Vikram Oh MD - Last Filed: 11/30/16 07:29> Objective - Vital Signs/Intake and Output Vital Signs (last 24 hours): Temp Pulse Resp BP Pulse Ox 97.8 F 73 18 143/87 96 11/23/16 06:00 11/23/16 06:00 11/23/16 06:00 11/23/16 06:00 11/23/16 06:00 - Labs Labs: 11/21/16 13:12 11/21/16 13:12 Attending/Attestation - Attestation I have personally seen and examined this patient.: Yes I have fully participated in the care of the patient.: Yes I have reviewed all pertinent clinical information, including history, physical exam and plan: Yes Notes (Text): Patient was seen and examined with medical transcription supervisor .Agreed with resident assessment and plan. 50 yrs female with PMHx significant for PUD s/p Billroth 2 gastrojejunostomy and vagotomy complicated by gastroparesis, LA class C esophagitis, medication induced (Januvia) pancreatitis, DM, prior DVT not on anticoagulation who presented to the ED with nausea, vomiting and diarrhea.Nausea and vomiting has resolved.Patient had fall 3 days back , X rays of neck, shoulder , knee and hip are negative for any fracture.She like norcotic , PT recommended TCU/ROSSI but can go home, as she has been seen on a[facility]ley ambulatory by nursing staff. Management plan was discussed in detail with patient Education was provided.
[2016-11-23 08:59] VITALS: BP 143/87; PULSE 73; RESP 18; TEMP 97.8; O2SAT 96
[2016-11-23] MEDS: oxyCODONE 5 mg Immediate Release Tab PO PRN (10:19)
[2016-11-23] MEDS: Venlafaxine 75 mg ER Cap PO SCH (10:20)
[2016-11-23] MEDS: Lidocaine 5% Patch TD SCH (10:20)
[2016-11-23] MEDS ORDERED: Oxycodone/Acetaminophen 5/325 mg Tab PO PRN (10:51)
[2016-11-23] MEDS ORDERED: HYDROmorphone 0.5 mg/0.5 ml ISec ONE (12:12)
--- NOTE | 2016-11-23 16:01 | CP.PCM.DIS ---
<Georgina Molina - Last Filed: 12/10/16 01:20> Provider - Provider Date of Admission: 11/18/16 05:35 Attending physician: Darrell Gatica MD Primary care physician: Dr. Buckner Consults: Dr. Guerra, Dr. Charles Time Spent in preparation of Discharge (in minutes): 35 Hospital Course - Lab Results Lab Results: Micro Results 11/18/16 18:26 Stool C. difficile Antigen & Toxin A,B (M - Final Most Recent Lab Values WBC 5.5 10^3/ul (4.5-11.0) 11/21/16 13:12 RBC 3.39 10^6/uL (3.5-6.1) L 11/21/16 13:12 Hgb 9.0 gm/dL (12.0-16.0) L 11/21/16 13:12 Hct 28.2 % (36.0-48.0) L 11/21/16 13:12 MCV 83.2 fL (80.0-105.0) 11/21/16 13:12 MCH 26.5 pg (25.0-35.0) 11/21/16 13:12 MCHC 31.9 g/dl (31.0-37.0) 11/21/16 13:12 RDW 16.4 % (11.5-14.5) H 11/21/16 13:12 Plt Count 235 10^3/uL (120.0-450.0) 11/21/16 13:12 MPV 9.9 fl (7.0-11.0) 11/21/16 13:12 Gran % 43.6 % (50.0-68.0) L 11/21/16 13:12 Lymph % (Auto) 45.8 % (22.0-35.0) H 11/21/16 13:12 [place] % (Auto) 5.1 % (1.0-6.0) 11/21/16 13:12 Eos % (Auto) 5.1 % (1.5-5.0) H 11/21/16 13:12 Baso % (Auto) 0.4 % (0.0-3.0) 11/21/16 13:12 Gran # 2.42 (1.4-6.5) 11/21/16 13:12 Lymph # 2.5 (1.2-3.4) 11/21/16 13:12 [place] # 0.3 (0.1-0.6) 11/21/16 13:12 Eos # 0.3 (0.0-0.7) 11/21/16 13:12 Baso # 0.02 K/mm3 (0.0-2.0) 11/21/16 13:12 pO2 104 mm/Hg (30-55) H 11/18/16 05:02 VBG pH 7.35 (7.32-7.43) 11/18/16 05:02 VBG pCO2 32.0 (40-60) L 11/18/16 05:02 VBG HCO3 17.7 mmol/l (21-28) L 11/18/16 05:02 VBG Total CO2 18.7 mmol.L (22-28) L 11/18/16 05:02 VBG O2 Sat (Calc) 94.1 % (40-65) H 11/18/16 05:02 VBG Base Excess -6.8 mmol/L (0.0-2.0) L 11/18/16 05:02 VBG Potassium 3.9 mmol/L (3.6-5.2) 11/18/16 05:02 Sodium 140.0 mmol/L (132-148) 11/18/16 05:02 Chloride 112.0 mmol/L (98-107) H 11/18/16 05:02 Glucose 170 mg/dl (65-105) H 11/18/16 05:02 Lactate 1.0 mmol/L (0.7-2.1) 11/18/16 05:02 FiO2 21.0 % 11/18/16 05:02 Sodium 139 mmol/L (132-148) 11/21/16 13:12 Potassium 4.4 mmol/L (3.6-5.0) 11/21/16 13:12 Chloride 111 mmol/L (95-110) H 11/21/16 13:12 Carbon Dioxide 20 mmol/L (21-33) L 11/21/16 13:12 Anion Gap 12 (10-20) 11/21/16 13:12 BUN 12 mg/dL (7-21) 11/21/16 13:12 Creatinine 0.9 mg/dL (0.5-1.4) 11/21/16 13:12 Est GFR ( Amer) > 60 11/21/16 13:12 Est GFR (Non-Af Amer) > 60 11/21/16 13:12 POC Glucose (mg/dL) 87 mg/dL (65-110) 11/19/16 16:29 Random Glucose 176 mg/dL (70-110) H 11/21/16 13:12 Hemoglobin A1c 6.3 % (4.2-6.5) 11/18/16 07:00 Calcium 8.2 mg/dL (8.4-10.5) L 11/21/16 13:12 Total Bilirubin 0.1 mg/dL (0.2-1.3) L 11/21/16 13:12 AST 26 U/L (15-39) 11/21/16 13:12 ALT 48 U/L (7-56) 11/21/16 13:12 Alkaline Phosphatase 67 U/L (38-133) 11/21/16 13:12 Troponin I < 0.01 ng/mL 11/21/16 23:25 Total Protein 5.4 g/dL (5.8-8.3) L 11/21/16 13:12 Albumin 2.9 g/dL (3.0-4.8) L 11/21/16 13:12 Globulin 2.5 gm/dL 11/21/16 13:12 Albumin/Globulin Ratio 1.2 (1.1-1.8) 11/21/16 13:12 Triglycerides 167 mg/dL (35-160) H 11/18/16 07:00 Cholesterol 269 mg/dL (130-200) H 11/18/16 07:00 LDL Cholesterol Direct 128 mg/dL (0-129) 11/18/16 07:00 HDL Cholesterol 83 mg/dL (29-60) H 11/18/16 07:00 Lipase 277 U/L (23-300) 11/18/16 01:15 Venous Blood Potassium 3.9 mmol/L (3.6-5.2) 11/18/16 05:02 - Hospital Course Hospital Course: 50yo female with PMHx significant for PUD s/p Billroth 2 gastrojejunostomy and vagotomy complicated by gastroparesis, LA class C esophagitis, medication induced (Januvia) pancreatitis, DMT2, prior DVT not on anticoagulation who presented to the ED with nausea, vomiting and diarrhea. Admitted for gastroparesis, enteritis to med/surg. Initial tx with IVF and diet was advanced from liquid diet, as tolerated and nausea and vomiting has resolved throughout admission, with one episode of vomiting witnessed by two members of nursing staff to be self-induced; see nursing notes from 11/20/2016. Erythromycin was held due to prolonged qtc. Abd/ Pelvis CT w/o po or iv contrast - mural thickening within loops of bowel. Patient had unobserved fall during course of hospital stay: X rays of neck, shoulder, knee and hip are negative for any fracture. Pt observed with steady gait by nursing and medical staff. Pt also had c/o lower chest pain, increasing with deep inspiration, has chest wall tenderness, chest pain is atypical, EKG without ST changes and troponin x 2 is negative. Pt d/c in stable condition with the following instructions: You are discharged home. Please follow-up with your primary medical doctor within a week. You would benefit to follow-up with a motility specialist at [facility], or with motility specialist of your choice. Please avoid opiate medications given motility issues - discussed with Gastroenterology team Please follow-up with a painter supervisor of your choice. Please resume home medications with new medication of lidocaine 2% viscous, swish and swallow, for history of esophagitis. Please take Seroquel 50 mg PO HS instead of 100mg due to increase in QTC interval. Please return to the emergency department for worsening of symptoms. Discharge Exam - Additional Findings Additional findings: - Constitutional Appears: No Acute Distress - Head Exam Head Exam: ATRAUMATIC, NORMOCEPHALIC - Eye Exam Eye Exam: EOMI, PERRL - Respiratory Exam Respiratory Exam: Clear to Auscultation Bilateral. absent: Rales, Rhonchi, Wheezes - Cardiovascular Exam Cardiovascular Exam: non-bradycardia, +S1, +S2 - GI/Abdominal Exam GI & Abdominal Exam: Soft, Tenderness. absent: Distended, Firm, Guarding - Extremities Exam Extremities exam: Positive for pedal pulses. Negative for: pedal edema - Neurological Exam Neurological exam: Alert, Oriented x3 - Psychiatric Exam Psychiatric exam: Normal Affect, Normal Mood - Skin Skin Exam: Intact, Warm Discharge Plan - Discharge Medications Prescriptions: Lidocaine 2% Viscous 10 ml PO BID PRN #1 bottle MDD 20 mL PRN Reason: Other oxyCODONE/Acetaminophen [Percocet 5/325 mg Tab] 1 ea PO Q8H PRN #9 tab PRN Reason: Pain, Moderate (4-7) - Follow Up Plan Condition: STABLE Disposition: HOME/ ROUTINE Instructions: Acute Nausea and Vomiting (DC), Gastroparesis (DC) Additional Instructions: You are discharged home. Please follow-up with your primary medical doctor within a week. You would benefit to follow-up with a motility specialist at [facility], or with motility specialist of your choice. Please avoid opiate medications given motility issues - discussed with Gastroenterology team Please follow-up with a painter supervisor of your choice. Please resume home medications with new medication of lidocaine 2% viscous, swish and swallow, for history of esophagitis. Please take Seroquel 50 mg PO HS instead of 100mg due to increase in QTC interval. Please return to the emergency department for worsening of symptoms. Referrals: Hever Heredia MD [Staff Provider] - <Darrell Gatica - Last Filed: 12/10/16 06:45> Provider - Provider Date of Admission: 11/18/16 05:35 Attending physician: Darrell Gatica MD Hospital Course - Lab Results Lab Results: Micro Results 11/18/16 18:26 Stool C. difficile Antigen & Toxin A,B (M - Final Most Recent Lab Values WBC 5.5 10^3/ul (4.5-11.0) 11/21/16 13:12 RBC 3.39 10^6/uL (3.5-6.1) L 11/21/16 13:12 Hgb 9.0 gm/dL (12.0-16.0) L 11/21/16 13:12 Hct 28.2 % (36.0-48.0) L 11/21/16 13:12 MCV 83.2 fL (80.0-105.0) 11/21/16 13:12 MCH 26.5 pg (25.0-35.0) 11/21/16 13:12 MCHC 31.9 g/dl (31.0-37.0) 11/21/16 13:12 RDW 16.4 % (11.5-14.5) H 11/21/16 13:12 Plt Count 235 10^3/uL (120.0-450.0) 11/21/16 13:12 MPV 9.9 fl (7.0-11.0) 11/21/16 13:12 Gran % 43.6 % (50.0-68.0) L 11/21/16 13:12 Lymph % (Auto) 45.8 % (22.0-35.0) H 11/21/16 13:12 [place] % (Auto) 5.1 % (1.0-6.0) 11/21/16 13:12 Eos % (Auto) 5.1 % (1.5-5.0) H 11/21/16 13:12 Baso % (Auto) 0.4 % (0.0-3.0) 11/21/16 13:12 Gran # 2.42 (1.4-6.5) 11/21/16 13:12 Lymph # 2.5 (1.2-3.4) 11/21/16 13:12 [place] # 0.3 (0.1-0.6) 11/21/16 13:12 Eos # 0.3 (0.0-0.7) 11/21/16 13:12 Baso # 0.02 K/mm3 (0.0-2.0) 11/21/16 13:12 pO2 104 mm/Hg (30-55) H 11/18/16 05:02 VBG pH 7.35 (7.32-7.43) 11/18/16 05:02 VBG pCO2 32.0 (40-60) L 11/18/16 05:02 VBG HCO3 17.7 mmol/l (21-28) L 11/18/16 05:02 VBG Total CO2 18.7 mmol.L (22-28) L 11/18/16 05:02 VBG O2 Sat (Calc) 94.1 % (40-65) H 11/18/16 05:02 VBG Base Excess -6.8 mmol/L (0.0-2.0) L 11/18/16 05:02 VBG Potassium 3.9 mmol/L (3.6-5.2) 11/18/16 05:02 Sodium 140.0 mmol/L (132-148) 11/18/16 05:02 Chloride 112.0 mmol/L (98-107) H 11/18/16 05:02 Glucose 170 mg/dl (65-105) H 11/18/16 05:02 Lactate 1.0 mmol/L (0.7-2.1) 11/18/16 05:02 FiO2 21.0 % 11/18/16 05:02 Sodium 139 mmol/L (132-148) 11/21/16 13:12 Potassium 4.4 mmol/L (3.6-5.0) 11/21/16 13:12 Chloride 111 mmol/L (95-110) H 11/21/16 13:12 Carbon Dioxide 20 mmol/L (21-33) L 11/21/16 13:12 Anion Gap 12 (10-20) 11/21/16 13:12 BUN 12 mg/dL (7-21) 11/21/16 13:12 Creatinine 0.9 mg/dL (0.5-1.4) 11/21/16 13:12 Est GFR ( Amer) > 60 11/21/16 13:12 Est GFR (Non-Af Amer) > 60 11/21/16 13:12 POC Glucose (mg/dL) 87 mg/dL (65-110) 11/19/16 16:29 Random Glucose 176 mg/dL (70-110) H 11/21/16 13:12 Hemoglobin A1c 6.3 % (4.2-6.5) 11/18/16 07:00 Calcium 8.2 mg/dL (8.4-10.5) L 11/21/16 13:12 Total Bilirubin 0.1 mg/dL (0.2-1.3) L 11/21/16 13:12 AST 26 U/L (15-39) 11/21/16 13:12 ALT 48 U/L (7-56) 11/21/16 13:12 Alkaline Phosphatase 67 U/L (38-133) 11/21/16 13:12 Troponin I < 0.01 ng/mL 11/21/16 23:25 Total Protein 5.4 g/dL (5.8-8.3) L 11/21/16 13:12 Albumin 2.9 g/dL (3.0-4.8) L 11/21/16 13:12 Globulin 2.5 gm/dL 11/21/16 13:12 Albumin/Globulin Ratio 1.2 (1.1-1.8) 11/21/16 13:12 Triglycerides 167 mg/dL (35-160) H 11/18/16 07:00 Cholesterol 269 mg/dL (130-200) H 11/18/16 07:00 LDL Cholesterol Direct 128 mg/dL (0-129) 11/18/16 07:00 HDL Cholesterol 83 mg/dL (29-60) H 11/18/16 07:00 Lipase 277 U/L (23-300) 11/18/16 01:15 Venous Blood Potassium 3.9 mmol/L (3.6-5.2) 11/18/16 05:02 Attending/Attestation - Attestation I have personally seen and examined this patient.: Yes I have fully participated in the care of the patient.: Yes I have reviewed all pertinent clinical information, including history, physical exam and plan: Yes Notes (Text): 12/10/16 06:40 51 year old female with past medical history of chronic pain on chronic opiates , PUD s/p Billroth procedure, and gastroparesis who presented with abdominal pain, nausea, vomiting and diarrhea likely secondary to gastroparesis and gastroparesis. She was started on antiemetics and fluids. She was seen by GI. Her symptoms resolved and her diet was advanced which she tolerated. She is on chronic opiates for chronic back pain. She was requesting only iv dilaudid while in hospital. Pain seeking behavior. She had a ?fall few days prior but xrays were negative for fracture. She was seen by PT who initially recommended TCU but as her symptoms improved she was cleared for discharge home. Patient is discharged home to follow up with her pmd. Follow up with painter supervisor. Counselled on risks of continued narcotics abuse. Darrell Gatica MD Hospitalist.
== END 2016-11-23 15:18 | disposition home or self-care (01) | DRG 18 ==
LOC: ED 00:42 → ERH 05:35 → 3RSO 06:29
PROVIDERS: ADMIT Internal Medicine; ATTEND Internal Medicine
DX: E11.43 Type 2 diabetes mellitus with diabetic autonomic (poly)neuropathy (principal); F06.30 Mood disorder due to known physiological condition, unspecified; I10 Essential (primary) hypertension; W19.XXXA Unspecified fall, initial encounter; K31.84 Gastroparesis; K21.0 Gastro-esophageal reflux disease with esophagitis; K52.9 Noninfective gastroenteritis and colitis, unspecified; K57.10 Diverticulosis of small intestine without perforation or abscess without bleeding; F32.89 Other specified depressive episodes; F41.9 Anxiety disorder, unspecified; G40.909 Epilepsy, unspecified, not intractable, without status epilepticus; G89.29 Other chronic pain; Z63.9 Problem related to primary support group, unspecified; Z79.899 Other long term (current) drug therapy; Z80.1 Family history of malignant neoplasm of trachea, bronchus and lung; Z83.3 Family history of diabetes mellitus; Z82.49 Family history of ischemic heart disease and other diseases of the circulatory system; Z86.718 Personal history of other venous thrombosis and embolism; Z87.01 Personal history of pneumonia (recurrent); Z87.11 Personal history of peptic ulcer disease; Z87.891 Personal history of nicotine dependence; Z90.49 Acquired absence of other specified parts of digestive tract; Z98.84 Bariatric surgery status; Z88.6 Allergy status to analgesic agent; Z88.5 Allergy status to narcotic agent; Z88.0 Allergy status to penicillin; Z88.8 Allergy status to other drugs, medicaments and biological substances; Z87.19 Personal history of other diseases of the digestive system; F31.9 Bipolar disorder, unspecified; F60.2 Antisocial personality disorder; K20.8 Other esophagitis; M25.569 Pain in unspecified knee; M54.2 Cervicalgia; Y93.9 Activity, unspecified; Y92.230 Patient room in hospital as the place of occurrence of the external cause; Z87.898 Personal history of other specified conditions; M25.552 Pain in left hip; R07.9 Chest pain, unspecified

== ENCOUNTER 2016-12-01 12:47 | Emergency (ER) | payer MEDICAID ==
[2016-12-01 12:55] VITALS: TEMP 98.7; O2SAT 98; BMI 22.1
--- NOTE | 2016-12-01 13:18 | ED PDOC ---
Arrival/HPI - General Chief Complaint: Rib Injury Time Seen by Provider: 12/01/16 12:59 Historian: Patient - History of Present Illness Narrative History of Present Illness (Text): 12/01/16 13:15 A 51 year old female comes into the emergency department complaining of left rib pain. Patient reports 11 days ago, while in the hospital she fell. At that time the patient was complaining of left knee pain, left hip pain and left neck pain. Patient had multiple x-ray at that time. Patient comes in today stating her ribs hurt and they never performed a rib x-ray, so she would like one done today. Patient denies any fever, back pain, or other complaints at this time. Time/Duration: Other (11 days) Symptom Onset: Sudden Symptom Course: Unchanged Quality: Other Activities at Onset: Rest Context: Other Past Medical History - Provider Review Nursing Documentation Reviewed: Yes - Infectious Disease Hx of Infectious Diseases: None - Tetanus Immunization Tetanus Immunization: Unknown - Reproductive Menopause: Yes - Past Medical History Past Medical History: No Previous - Cardiac Hx Cardiac Disorders: Yes Hx Hypertension: Yes - Pulmonary Hx Respiratory Disorders: Yes Hx Pneumonia: Yes Hx Tuberculosis: No - Neurological HX Cerebrovascular Accident: No - HEENT Hx HEENT Disorder: No - Renal Hx Renal Disorder: No - Endocrine/Metabolic Hx Diabetes Mellitus Type 2: Yes (Borderline) - Hematological/Oncological Hx Blood Disorders: No Hx Cancer: No - Integumentary Hx Dermatological Disorder: No - Musculoskeletal/Rheumatological Hx Falls: Yes - Gastrointestinal Other/Comment: Gastropheresis - Genitourinary/Gynecological Hx Genitourinary Disorders: No Hx Sexually Transmitted Diseases: No - Psychiatric Hx Psychophysiologic Disorder: Yes Hx Anxiety: Yes Hx Depression: Yes Hx Physical Abuse: No Hx Sexual Abuse: No Hx Substance Use: No - Surgical History Hx Cholecystectomy: Yes Hx Gastric Bypass Surgery: Yes (2013) - Anesthesia Hx Anesthesia: Yes Hx Anesthesia Reactions: No Hx Malignant Hyperthermia: No - Suicidal Assessment Feels Threatened In Home Enviroment: No Family/Social History - Physician Review Nursing Documentation Reviewed: Yes Family/Social History: Unknown Family HX Smoking Status: Never Smoked Hx Alcohol Use: No Hx Substance Use: No Hx Substance Use Treatment: No Allergies/Home Meds Allergies/Adverse Reactions: Allergies Penicillins Allergy (Intermediate, Verified 12/01/16 12:55) HIVES morphine Allergy (Verified 12/01/16 12:55) ITCHING naproxen [From Naprosyn] Allergy (Verified 12/01/16 12:55) NAUSEA compazine Allergy (Intermediate, Uncoded 12/01/16 12:55) muscle stiffening Review of Systems - Physician Review All systems were reviewed & negative as marked: Yes - Review of Systems Constitutional: absent: Fevers Musculoskeletal: Other (left rib pain). absent: Back Pain Physical Exam Vital Signs Reviewed: Yes Vital Signs Temp Pulse Resp BP Pulse Ox 12/01/16 12:52 98.7 F 98 H 18 106/75 98 Temperature: Afebrile Blood Pressure: Normal Pulse: Regular Respiratory Rate: Normal Appearance: Positive for: Well-Appearing, Non-Toxic, Comfortable Pain Distress: None Mental Status: Positive for: Alert and Oriented X 3 - Systems Exam Head: Present: Atraumatic, Normocephalic Pupils: Present: PERRL Extroacular Muscles: Present: EOMI Conjunctiva: Present: Normal Mouth: Present: Moist Mucous Membranes Neck: Present: Normal Range of Motion Respiratory/Chest: Present: Clear to Auscultation, Good Air Exchange, Tender to Palpation (tenderness with palpation of the left lateral ribs but no crepitus, swelling or skin changes). No: Respiratory Distress, Accessory Muscle Use Cardiovascular: Present: Regular Rate and Rhythm, Normal S1, S2. No: Murmurs Abdomen: Present: Normal Bowel Sounds. No: Tenderness, Distention, Peritoneal Signs Back: Present: Normal Inspection Upper Extremity: Present: Normal Inspection. No: Cyanosis, Edema Lower Extremity: Present: Normal Inspection. No: Edema Neurological: Present: GCS=15, CN II-XII Intact, Speech Normal Skin: Present: Warm, Dry, Normal Color. No: Rashes Psychiatric: Present: Alert, Oriented x 3, Normal Insight, Normal Concentration Medical Decision Making ED Course and Treatment: 12/01/16 13:15 Impression: A 51 year old with rib pain after a mechanical fall 11 days ago. Differential Diagnosis include but are not limited to: fracture vs. sprain Plan: -- Left Rib and Chest X-ray -- Reassess and disposition Progress Notes: - RAD Interpretation Radiology Orders: 12/01/16 13:25 RIBS LEFT & PA CHEST [RAD] Stat 12/01/16 13:51 HAND LEFT 3 VIEWS ROUTINE [RAD] Stat Rib and hand x-ray showed no fracture dislocation or pneumothorax Energy Assistant: ED Physician - Scribe Statement The provider has reviewed the documentation as recorded by the Jose Antonio Dewitt Provider Jose Antonio Attestation: All medical record entries made by the Jose Antonio were at my direction and personally dictated by me. I have reviewed the chart and agree that the record accurately reflects my personal performance of the history, physical exam, medical decision making, and the department course for this patient. I have also personally directed, reviewed, and agree with the discharge instructions and disposition. Disposition/Present on Arrival - Present on Arrival Any Indicators Present on Arrival: No History of DVT/PE: No History of Uncontrolled Diabetes: Yes Urinary Catheter: No History of Decub. Ulcer: No History Surgical Site Infection Following: None - Disposition Have Diagnosis and Disposition been Completed?: Yes Diagnosis: Chest wall contusion, Finger sprain Disposition: HOME/ ROUTINE Disposition Time: 14:21 Patient Plan: Discharge Condition: GOOD Discharge Instructions (ExitCare): Chest Wall Pain (ED)
--- NOTE | 2016-12-01 15:08 | RAD ---
PROCEDURE: Left Hand Radiographs. HISTORY: trauma COMPARISON: None. FINDINGS: BONES: Normal. No fracture. JOINTS: Normal. No osteoarthritic changes. SOFT TISSUES: Normal. OTHER FINDINGS: None. IMPRESSION: Normal left hand radiographs.
--- NOTE | 2016-12-01 15:12 | RAD ---
PROCEDURE: Radiographs of the Chest and Left Ribs. HISTORY: trauma COMPARISON: None available. TECHNIQUE: Frontal radiograph of the chest and multiple oblique radiographs of the left ribs were obtained. FINDINGS: LEFT RIBS: There is a minimally displaced fracture of the lateral aspect of the 6th rib seen on one view only. LUNGS: Clear. PLEURA: No pneumothorax or pleural fluid. CARDIOVASCULAR: Normal sized heart. No pulmonary vascular congestion. OTHER FINDINGS: None. IMPRESSION: Minimally displaced fracture of the lateral aspect of the 6th rib
[2016-12-01 23:08] VITALS: BP 110/82; PULSE 97; RESP 16
== END 2016-12-01 15:29 | disposition home or self-care (01) ==
LOC: ED 12:47
DX: S20.219A Contusion of unspecified front wall of thorax, initial encounter (principal); S63.619A Unspecified sprain of unspecified finger, initial encounter; W19.XXXA Unspecified fall, initial encounter; Z91.81 History of falling; Y92.239 Unspecified place in hospital as the place of occurrence of the external cause; I10 Essential (primary) hypertension

== ENCOUNTER 2016-12-08 14:39 | Emergency (ER) | payer MEDICAID ==
[2016-12-08 15:18] VITALS: BMI 21.4
--- NOTE | 2016-12-08 15:28 | ED PDOC ---
Arrival/HPI - General Chief Complaint: Medical Clearance Time Seen by Provider: 12/08/16 14:56 Historian: Patient - History of Present Illness Narrative History of Present Illness (Text): 12/08/16 15:19 51yo female with Psychiatric history of anxiety/depression JOYCE with complaint of left sided ribs/back pain and anxiety. She notes that she fell while she was here in the hospital a little over 2weeks ago. although review of her chart indicated that she was seen here on 12/01/16 for same left ribs pain, where she reported trauma 11days prior to the visit. She states that she fell and injured her ribs and lower back. Reports chronic history of lower back pain. States she came to ED for evaluation of the left ribs pain. She notes that she takes Oxycodone at home, but ran out. Requesting pain medication for her pain. Also requesting medication for her anxiety. She is not clearly stating if she is currently having anxiety attack. she denies headache, focal weakness, urinary/ fecal incontinence, any other complaint. Past Medical History - Provider Review Nursing Documentation Reviewed: Yes - Infectious Disease Hx of Infectious Diseases: None - Tetanus Immunization Tetanus Immunization: Unknown - Past Medical History Past Medical History: No Previous - Cardiac Hx Cardiac Disorders: Yes Hx Hypertension: Yes - Pulmonary Hx Respiratory Disorders: Yes Hx Pneumonia: Yes Hx Tuberculosis: No - Neurological HX Cerebrovascular Accident: No - HEENT Hx HEENT Disorder: No - Renal Hx Renal Disorder: No - Endocrine/Metabolic Hx Diabetes Mellitus Type 2: Yes (Borderline) - Hematological/Oncological Hx Blood Disorders: No Hx Cancer: No - Integumentary Hx Dermatological Disorder: No - Musculoskeletal/Rheumatological Hx Falls: Yes - Gastrointestinal Other/Comment: Gastropheresis - Genitourinary/Gynecological Hx Genitourinary Disorders: No Hx Sexually Transmitted Diseases: No - Psychiatric Hx Psychophysiologic Disorder: Yes Hx Anxiety: Yes Hx Depression: Yes Hx Physical Abuse: No Hx Sexual Abuse: No Hx Substance Use: No - Surgical History Hx Cholecystectomy: Yes Hx Gastric Bypass Surgery: Yes (2014) - Anesthesia Hx Anesthesia: Yes Hx Anesthesia Reactions: No Hx Malignant Hyperthermia: No - Suicidal Assessment Feels Threatened In Home Enviroment: No Family/Social History - Physician Review Nursing Documentation Reviewed: Yes Family/Social History: Unknown Family HX Smoking Status: Never Smoked Hx Alcohol Use: No Hx Substance Use: No Hx Substance Use Treatment: No Allergies/Home Meds Allergies/Adverse Reactions: Allergies Penicillins Allergy (Intermediate, Verified 12/08/16 14:58) HIVES morphine Allergy (Verified 12/08/16 14:58) ITCHING naproxen [From Naprosyn] Allergy (Verified 12/08/16 14:58) NAUSEA compazine Allergy (Intermediate, Uncoded 12/08/16 14:58) muscle stiffening Review of Systems - Physician Review All systems were reviewed & negative as marked: Yes - Review of Systems Constitutional: Normal Eyes: Normal ENT: Normal Respiratory: Normal Cardiovascular: Normal Gastrointestinal: Normal Genitourinary Female: Normal Musculoskeletal: Arthralgias (Left ribs pain), Back Pain Skin: Normal Neurological: Normal Endocrine: Normal Hemo/Lymphatic: Normal Psychiatric: Normal Physical Exam Vital Signs Reviewed: Yes Vital Signs Pulse Resp BP Pulse Ox 12/08/16 16:33 93 H 16 114/67 100 12/08/16 15:47 82 18 140/118 H 100 Temperature: Afebrile Blood Pressure: Normal Pulse: Regular Respiratory Rate: Normal Appearance: Positive for: Well-Appearing, Non-Toxic, Comfortable Pain Distress: None Mental Status: Positive for: Alert and Oriented X 3 - Systems Exam Head: Present: Atraumatic, Normocephalic Pupils: Present: PERRL Extroacular Muscles: Present: EOMI Conjunctiva: Present: Normal Mouth: Present: Moist Mucous Membranes Neck: Present: Normal Range of Motion Respiratory/Chest: Present: Clear to Auscultation, Good Air Exchange, Tender to Palpation (Left anterior ribs. No crepitus. No swelling. No ecchymosis noted). No: Respiratory Distress, Accessory Muscle Use, Wheezes, Decreased Breath Sounds , Rales, Retracting, Rhonchi Cardiovascular: Present: Regular Rate and Rhythm, Normal S1, S2. No: Murmurs Abdomen: Present: Normal Bowel Sounds. No: Tenderness, Distention, Peritoneal Signs Back: No: Midline Tenderness, Paraspinal Tenderness, Pain with Leg Raise Upper Extremity: Present: Normal Inspection. No: Cyanosis, Edema Lower Extremity: Present: Normal Inspection. No: Edema Neurological: Present: GCS=15, CN II-XII Intact, Speech Normal Skin: Present: Warm, Dry, Normal Color. No: Rashes Psychiatric: Present: Alert, Oriented x 3, Normal Insight, Normal Concentration Medical Decision Making ED Course and Treatment: 12/09/16 00:10 Pt was seen here on 12/02/16 for similar left sided ribs and ribs xray was negative at that time. She came back to ED today requesting Percocet. states she ran out of her Oxycodone at home. She had stable ambulation and had no focal neurological weakness. Her EKG was NSR with no ST changes. she became loud and aggressive, when she was DC home, refusing to live and demanding narcotics. She was advised to f/u with her PMD/Pain management, hence she have history of chronic back pain and exhibiting drug seeking behavior. she eventually left/walked out of the ED after [facility] was called to the ED. - Medication Orders Current Medication Orders: Discontinued Medications Acetaminophen (Tylenol 325mg Tab) 650 mg PO STAT STA Stop: 12/08/16 15:19 Last Admin: 12/08/16 15:44 Dose: 650 mg Clonazepam (Klonopin) 2 mg PO STAT STA PRN Reason: Protocol Stop: 12/08/16 15:18 Last Admin: 12/08/16 15:44 Dose: 2 mg Disposition/Present on Arrival - Present on Arrival Any Indicators Present on Arrival: No History of DVT/PE: No History of Uncontrolled Diabetes: Yes Urinary Catheter: No History of Decub. Ulcer: No History Surgical Site Infection Following: None - Disposition Have Diagnosis and Disposition been Completed?: Yes Diagnosis: Anxiety, Rib pain, Drug-seeking behavior, Back pain Disposition: HOME/ ROUTINE Disposition Time: 16:05 Patient Plan: Discharge Condition: STABLE Discharge Instructions (ExitCare): Chest Pain (ED) Additional Instructions: Follow up with your doctor Return to ED for any new symptoms Medically cleared for incarceration Referrals: Tarun Albert MD [Primary Care Provider] - Follow up with primary
[2016-12-08 15:47] VITALS: O2SAT 100
[2016-12-08 16:34] VITALS: BP 114/67; PULSE 93; RESP 16
--- NOTE | 2016-12-10 18:21 | CARD ---
APPROVED REPORT EKG Measurement Heart [id number] <Conclusion> Normal sinus rhythm Prolonged QT Abnormal ECG
== END 2016-12-08 16:33 | disposition home or self-care (01) ==
LOC: ED 14:39
DX: F41.9 Anxiety disorder, unspecified (principal); R07.81 Pleurodynia; M54.9 Dorsalgia, unspecified; Z76.5 Malingerer [conscious simulation]

== ENCOUNTER 2016-12-22 03:48 | Inpatient (IN) | payer MEDICAID ==
--- NOTE | 2016-12-22 04:20 | ED PDOC ---
Arrival/HPI - General Chief Complaint: Substance Abuse Time Seen by Provider: 12/22/16 03:55 Historian: Patient, EMS - History of Present Illness Narrative History of Present Illness (Text): 12/22/16 04:10 Clara Ortiz is a 51 year old female, with a history of CAD, hypertension , diabetes, seizures, anxiety and depression, presents to the emergency department s/p suspected overdose on unknown number tablets of Fioricet/ psychiatric/seizure or other prescribed meds. Unsure when patient took the medication, and patient was found lethargic by family who called the ambulance. According to EMS, patient's family informed that she has a history of overdose in the past and think she might be suicidal. On arrival to the emergency department, patient is somnolent, but is arousable. Denies any fever, chills, headache, dizziness, chest pain, difficulty breathing, abdominal pain, nausea, vomiting, diarrhea, urinary symptoms, or any other complaints at this time Time/Duration: Prior to Arrival Symptom Onset: Gradual Activities at Onset: Light Context: Home Past Medical History - Provider Review Nursing Documentation Reviewed: Yes - Infectious Disease Hx of Infectious Diseases: None - Tetanus Immunization Tetanus Immunization: Unknown - Past Medical History Past Medical History: No Previous - Cardiac Hx Cardiac Disorders: Yes Hx Hypertension: Yes - Pulmonary Hx Respiratory Disorders: Yes Hx Pneumonia: Yes Hx Tuberculosis: No - Neurological HX Cerebrovascular Accident: No - HEENT Hx HEENT Disorder: No - Renal Hx Renal Disorder: No - Endocrine/Metabolic Hx Diabetes Mellitus Type 2: Yes (Borderline) - Hematological/Oncological Hx Blood Disorders: No Hx Cancer: No - Integumentary Hx Dermatological Disorder: No - Musculoskeletal/Rheumatological Hx Falls: Yes - Gastrointestinal Other/Comment: Gastropheresis - Genitourinary/Gynecological Hx Genitourinary Disorders: No Hx Sexually Transmitted Diseases: No - Psychiatric Hx Psychophysiologic Disorder: Yes Hx Anxiety: Yes Hx Depression: Yes Hx Physical Abuse: No Hx Sexual Abuse: No Hx Substance Use: No - Surgical History Hx Cholecystectomy: Yes Hx Gastric Bypass Surgery: Yes (2013) - Anesthesia Hx Anesthesia: Yes Hx Anesthesia Reactions: No Hx Malignant Hyperthermia: No - Suicidal Assessment Feels Threatened In Home Enviroment: No Family/Social History - Physician Review Nursing Documentation Reviewed: Yes Family/Social History: No Known Family HX Smoking Status: Never Smoked Hx Alcohol Use: No Hx Substance Use: No Hx Substance Use Treatment: No Allergies/Home Meds Allergies/Adverse Reactions: Allergies Penicillins Allergy (Intermediate, Verified 12/08/16 14:58) HIVES morphine Allergy (Verified 12/08/16 14:58) ITCHING naproxen [From Naprosyn] Allergy (Verified 12/08/16 14:58) NAUSEA compazine Allergy (Intermediate, Uncoded 12/08/16 14:58) muscle stiffening Review of Systems - Physician Review All systems were reviewed & negative as marked: Yes - Review of Systems Constitutional: Normal. absent: Fatigue, Fevers Respiratory: Normal. absent: SOB, Cough Cardiovascular: Normal. absent: Chest Pain, Palpitations Gastrointestinal: Normal. absent: Abdominal Pain, Diarrhea, Nausea, Vomiting Neurological: Normal. absent: Headache, Dizziness Psychiatric: Suicidal Ideation, Other (overdose ) Physical Exam Vital Signs Reviewed: Yes Vital Signs Temp Pulse Resp BP Pulse Ox 12/22/16 04:22 98.2 F 96 H 18 121/73 99 Temperature: Afebrile Blood Pressure: Normal Pulse: Regular Respiratory Rate: Normal Appearance: Positive for: Non-Toxic Pain Distress: None Mental Status: Positive for: other (somnolent but arousable. ) - Systems Exam Head: Present: Atraumatic, Normocephalic Pupils: Present: PERRL Ears: Present: NORMAL TM Mouth: Present: Moist Mucous Membranes Pharnyx: Present: Normal Neck: No: Meningeal Signs Respiratory/Chest: Present: Clear to Auscultation, Good Air Exchange. No: Respiratory Distress, Accessory Muscle Use Cardiovascular: Present: Regular Rate and Rhythm, Normal S1, S2. No: Murmurs Abdomen: Present: Normal Bowel Sounds. No: Tenderness, Distention, Peritoneal Signs Upper Extremity: Present: Normal Inspection, Normal ROM. No: Cyanosis, Edema Lower Extremity: Present: Normal Inspection, NORMAL PULSES, Normal ROM. No: Edema Neurological: Present: CN II-XII Intact, Speech Normal, Motor Func Grossly Intact, Normal Sensory Function Skin: Present: Warm, Dry, Normal Color. No: Rashes Psychiatric: Present: Depressed Mood, Lethargic Medical Decision Making ED Course and Treatment: 12/22/16 04:22 Impression: A 51 year old female who presents to the emergency department s/p suspected overdose on Fioricet. Plan: -- EKG -- Labs -- Alcohol level -- Drug Screen -- Chest X-ray -- Urinalysis -- Reassess and disposition Progress Notes: 12/22/16 04:58 EKG interpreted by me: NSR @ 95 bpm. No acute changes. 12/22/16 05:47 Case discussed with bowling ball patcher, , who accepts patient to the ICU for drug overdose. Accepts patient under hospitalist service. Patient evaluated by medical chemist bedside. - Lab Interpretations Lab Results: 12/22/16 04:22 12/22/16 04:22 Lab Results 12/22/16 04:22: Alcohol, Quantitative < 10 12/22/16 04:22: Salicylates < 1 L, Acetaminophen < 10.0 L 12/22/16 04:22: Sodium 137, Potassium 3.5 L, Chloride 108, Carbon Dioxide 18 L, Anion Gap 15, BUN 19, Creatinine 1.0, Est GFR ( Amer) > 60, Est GFR (Non- Af Amer) 58, Random Glucose 287 H, Calcium 9.0, Total Bilirubin 0.2, AST 22, ALT 39, Alkaline Phosphatase 77, Total Protein 6.5, Albumin 3.9, Globulin 2.7, Albumin/Globulin Ratio 1.4 12/22/16 04:22: WBC 5.7, RBC 3.47 L, Hgb 9.1 L, Hct 28.1 L, MCV 81.0, MCH 26.2, MCHC 32.4, RDW 15.9 H, Plt Count 204, MPV 10.0, Gran % 66.7, Lymph % (Auto) 25.2 , Caroline % (Auto) 6.5 H, Eos % (Auto) 1.1 L, Baso % (Auto) 0.5, Gran # 3.79, Lymph # 1.4, Caroline # 0.4, Eos # 0.1, Baso # 0.03 I have reviewed the lab results: Yes - RAD Interpretation Radiology Orders: 12/22/16 04:08 CHEST PORTABLE [RAD] Stat Collaborative Teacher: Radiologist - EKG Interpretation Interpreted by ED Physician: Yes Type: 12 lead EKG - Medication Orders Current Medication Orders: Sodium Chloride (Sodium Chloride 0.9%) 1,000 mls @ 999 mls/hr IV .Q1H1M STA Stop: 12/22/16 06:43 Naloxone HCl (Narcan) 1 mg IVP STAT STA Stop: 12/22/16 05:44 - Scribe Statement The provider has reviewed the documentation as recorded by the Jose Antonio Wang Provider Attestation: Provider Scribe Attestation: All medical record entries made by the Scribe were at my direction and personally dictated by me. I have reviewed the chart and agree that the record accurately reflects my personal performance of the history, physical exam, medical decision making, and the department course for this patient. I have also personally directed, reviewed, and agree with the discharge instructions and disposition. Disposition/Present on Arrival - Present on Arrival Any Indicators Present on Arrival: No History of DVT/PE: No History of Uncontrolled Diabetes: Yes Urinary Catheter: No History of Decub. Ulcer: No History Surgical Site Infection Following: None - Disposition Have Diagnosis and Disposition been Completed?: Yes Diagnosis: Drug overdose, multiple drugs Disposition: HOSPITALIZED Disposition Time: 05:42 Patient Plan: ICU Patient Problems: Current Active Problems Problem Status Onset Drug overdose, multiple drugs Acute Condition: STABLE
[2016-12-22 04:35] LABS: ADD MANUAL DIFF? NO
[2016-12-22 04:49] LABS: BASO # 0.03 K/mm3 (0.0-2.0); BASO % 0.5 % (0.0-3.0); EOS # 0.1 (0.0-0.7); EOS % 1.1 % (1.5-5.0); GRAN # 3.79 (1.4-6.5); GRAN % 66.7 % (50.0-68.0); HEMATOCRIT 28.1 % (36.0-48.0); LYMPH # 1.4 (1.2-3.4); LYMPH % 25.2 % (22.0-35.0); MEAN CORPUSCULAR HEMOGLOBIN 26.2 pg (25.0-35.0); MEAN CORPUSCULAR HGB CONC 32.4 g/dl (31.0-37.0); MONO # 0.4 (0.1-0.6); MONO % 6.5 % (1.0-6.0); PLATELET COUNT 204 10^3/uL (120.0-450.0); RED CELL DISTRIBUTION WIDTH 15.9 % (11.5-14.5); WHITE BLOOD COUNT 5.7 10^3/ul (4.5-11.0)
[2016-12-22 04:55] LABS: ALB/GLOB RATIO 1.4 (1.1-1.8); ALKALINE PHOSPHATASE 77 U/L (38-133); ALT/SGPT 39 U/L (7-56); AST/SGOT 22 U/L (15-39); BILIRUBIN,TOTAL 0.2 mg/dL (0.2-1.3); BLOOD UREA NITROGEN 19 mg/dL (7-21); CARBON DIOXIDE 18 mmol/L (21-33); CHLORIDE 108 mmol/L (95-110); GFR AFRICAN-AMERICAN > 60; GLUCOSE,RANDOM 287 mg/dL (70-110); POTASSIUM 3.5 mmol/L (3.6-5.0); SODIUM 137 mmol/L (132-148); TOTAL PROTEIN 6.5 g/dL (5.8-8.3)
[2016-12-22 05:38] LABS: URINE BILIRUBIN NEGATIVE (NEGATIVE); URINE BLOOD TRACE-INTACT (NEGATIVE); URINE GLUCOSE (UA) 250 mg/dL (NEGATIVE); URINE KETONE NEGATIVE (NEGATIVE); URINE LEUKOCYTE ESTERASE NEGATIVE Leu/uL (NEGATIVE); URINE PROTEIN TRACE mg/dL (<30 mg/dL); URINE UROBILINOGEN 0.2 E.U./dL (<1 E.U./dL)
[2016-12-22] MEDS ORDERED: Sodium Chloride 0.9% 1,000 ML IV STA (05:43)
[2016-12-22] MEDS ORDERED: Naloxone 0.4 mg/ml Inj (Adult) IVP STA (05:43)
[2016-12-22] MEDS ORDERED: Naloxone 0.4 mg/ml Inj (Adult) ONE ×2 (05:48→05:50)
[2016-12-22 05:54] LABS: URINE APPEARANCE CLEAR (CLEAR); URINE COLOR YELLOW (YELLOW)
[2016-12-22 05:57] LABS: URINE EPITHELIAL CELLS 0 - 2 /hpf (0-5); URINE RBC 0 - 2 /hpf (0-2); URINE WBC 0 - 2 /hpf (0-6)
[2016-12-22 06:04] LABS: ARTERIAL BLOOD GAS PH 7.33 (7.35-7.45)
--- NOTE | 2016-12-22 06:08 | CP.PCM.HP ---
<EvaristoJimbo mayfield - Last Filed: 12/22/16 06:47> History of Present Illness - History of Present Illness History of Present Illness: This patient is a 51 year old F well known to the [facility] [place] who states that she was at home, which has been much more stressful than usual, where she "passed out". She states she took her medicines as prescribed, not more than indicated or less, and very shortly after passed out because her daughter was taunting her and calling her names. The patient is extremely tearful on exam, hard to arouse, and complaining of a variety of complaints (hip pain, abdominal pain, chest pain) and is not appropriately speaking to the commercial lines underwriter. She denies fevers/chills, MARTINEZ, CP, urinary/fecal incontinence, tongue biting, leg pain/ swelling. This patient has been admitted multiple times in the past for drug overdoses, and is chronically addicted to pain medication. She exhibits pain medication seeking behavior that has been documented on multiple visits. The patient currently denies any SI/HI, AV hallucinations. She states she is 'extremely stressed right now' and would 'like to talk to someone regarding that'. States her last seizure was 1.5-2 years ago. Medications: klonopin, keppra, mirtazapine, zofran, oxy, Protonix, Seroquel 50, Effexor Allergies: PCN Surgeries: Billroth Procedure Social: lives at home, states home live is volatile, denies drug use, denies every overdosing in past even though its well documented here at [facility] Present on Admission - Present on Admission Any Indicators Present on Admission: No History of DVT/PE: No History of Uncontrolled Diabetes: No Urinary Catheter: No Decubitus Ulcer Present: No Review of Systems - Constitutional Constitutional: As Per HPI Past Patient History - Infectious Disease Hx of Infectious Diseases: None - Tetanus Immunizations Tetanus Immunization: Unknown - Past Medical History & Family History Past Medical History?: Yes - Past Social History Smoking Status: Never Smoked - CARDIAC Hx Cardiac Disorders: Yes Hx Hypertension: Yes - PULMONARY Hx Respiratory Disorders: Yes Hx Pneumonia: Yes Hx Tuberculosis: No - NEUROLOGICAL HX Cerebrovascular Accident: No - HEENT Hx HEENT Problems: No - RENAL Hx Chronic Kidney Disease: No - ENDOCRINE/METABOLIC Hx Diabetes Mellitus Type 2: Yes (Borderline) - HEMATOLOGICAL/ONCOLOGICAL Hx Blood Disorders: No Hx Cancer: No - INTEGUMENTARY Hx Dermatological Problems: No - MUSCULOSKELETAL/RHEUMATOLOGICAL Hx Falls: Yes - GASTROINTESTINAL Other/Comment: Gastropheresis - GENITOURINARY/GYNECOLOGICAL Hx Genitourinary Disorders: No Hx Sexually Transmitted Disorders: No - PSYCHIATRIC Hx Psychophysiologic Disorder: Yes Hx Anxiety: Yes Hx Depression: Yes Hx Physical Abuse: No Hx Sexual Abuse: No Hx Substance Use: No - SURGICAL HISTORY Hx Cholecystectomy: Yes Hx Gastric Bypass Surgery: Yes (2013) - ANESTHESIA Hx Anesthesia: Yes Hx Anesthesia Reactions: No Hx Malignant Hyperthermia: No Meds Allergies/Adverse Reactions: Allergies Allergy/AdvReac Type Severity Reaction Status Date / Time Penicillins Allergy Intermediate HIVES Verified 12/22/16 16:00 morphine Allergy ITCHING Verified 12/22/16 16:00 naproxen [From Naprosyn] Allergy NAUSEA Verified 12/22/16 16:00 compazine Allergy Intermediate muscle Uncoded 12/22/16 16:00 stiffening Physical Exam - Constitutional Additional comments: Lethargic, pinpoint pupils, not easily arousable, not responding appropriately to questions, tearful - Head Exam Head Exam: ATRAUMATIC - Eye Exam Additional comments: poinpoint pupils - ENT Exam ENT Exam: Mucous Membranes Dry - Neck Exam Neck exam: Negative for: Lymphadenopathy - Respiratory Exam Respiratory Exam: Clear to Auscultation Bilateral, NORMAL BREATHING PATTERN. absent: Rales, Rhonchi, Wheezes - Cardiovascular Exam Cardiovascular Exam: REGULAR RHYTHM, +S1 - GI/Abdominal Exam GI & Abdominal Exam: Normal Bowel Sounds, Soft. absent: Tenderness Additional comments: large scar in the epigastric region, soft non tender non distended; voluntary guarding - Extremities Exam Extremities exam: Positive for: full ROM. Negative for: calf tenderness - Back Exam Back exam: NORMAL INSPECTION. absent: CVA tenderness (L), CVA tenderness (R) - Neurological Exam Neurological exam: Alert, Oriented x3 - Psychiatric Exam Psychiatric exam: Normal Affect, Normal Mood - Skin Skin Exam: Warm Results - Vital Signs Recent Vital Signs: Last Vital Signs Temp 98.2 F 12/22/16 04:22 Pulse 96 H 12/22/16 04:22 Resp 18 12/22/16 04:22 BP 121/73 12/22/16 04:22 Pulse Ox 99 12/22/16 04:22 - Labs Result Diagrams: 12/22/16 04:22 12/22/16 04:22 Assessment & Plan - Assessment and Plan (Free Text) Assessment: 51yo F admitted for polysubstance abuse/overdose Polysubstance Abuse/Overdose -given Narcan in ED which aroused patient -Psych Consult ordered; Dr. Camacho appreciate recs -patient has long standing history of polysubstance abuse and overdose -supportive care and monitoring on telemetry; hold all narcotics -NS 125ml/hr Chronic Anemia; stable -Hgb currently 9.1 which is stable for patient -monitor with daily CBC Seizure Disorder -c/w Keppra Psych -psych meds on hold until Psych consult and / to patient being sedated -normally on klonopin, seroquel, and effexor Proph Protonix and SCDs Heart Healthy Diet Case discussed and seen with Dr. Frank Moreno PGY1 Night Float Decision To Admit - Pt Status Changed To: Hospital Disposition Of: Observation - . Bed Request Type: Remote Telemetry Admitting Physician: Anurag Marie <Anurag Marie - Last Filed: 12/23/16 03:31> Results - Vital Signs Recent Vital Signs: Last Vital Signs Temp 98 F 12/22/16 17:29 Pulse 71 12/22/16 17:29 Resp 18 12/22/16 17:29 BP 140/118 H 12/22/16 17:29 Pulse Ox 98 12/22/16 16:00 - Labs Result Diagrams: 12/22/16 04:22 12/22/16 04:22 Labs: Laboratory Results - last 24 hr 12/22/16 05:56 pCO2 36 pO2 108.0 H HCO3 19.0 L ABG pH 7.33 L ABG Total CO2 20.1 L ABG O2 Saturation 93.9 L ABG Base Excess -6.2 L ABG Potassium 3.5 L Sodium 140.0 Chloride 116.0 H Glucose 198 H Lactate 2.0 FiO2 21.0 Arterial Blood Potassium 3.5 L Attending/Attestation - Attestation I have personally seen and examined this patient.: Yes I have fully participated in the care of the patient.: Yes I have reviewed all pertinent clinical information: Yes Notes (Text): 12/23/16 03:29 I agree with the above note and exam by Dr. Ortiz with the following addition/ exception: Initially asked to see this patient for a possible ICU admission due to polysubstance abuse/?overdose, however she was easily arousable and had an ABG showing no retention of C02 or indication that she was unable to protect her airway so she was admitted to the telemetry floor for further monitoring and care.
[2016-12-22] MEDS ORDERED: Potassium Chloride 40 mEq/30 ml LIQ UD PO STA (06:47)
--- NOTE | 2016-12-22 08:29 | RAD ---
HISTORY: overdose COMPARISON: 12/01/2016 FINDINGS: LUNGS: No active pulmonary disease. PLEURA: No significant pleural effusion identified, no pneumothorax apparent. CARDIOVASCULAR: Normal. OSSEOUS STRUCTURES: There is curvature of the thoracic spine to the right VISUALIZED UPPER ABDOMEN: Normal. OTHER FINDINGS: None. IMPRESSION: No active disease.
[2016-12-22] MEDS: Sodium Chloride 0.9% 1,000 ML IV SCH ×2 (08:40→15:09)
[2016-12-22] MEDS ORDERED: Pantoprazole 40 mg EC Tab PO SCH (10:00)
--- NOTE | 2016-12-22 10:07 | CARD ---
APPROVED REPORT EKG Measurement Heart [id number] DC 124P56 [id number] <Conclusion> Normal sinus rhythm Prolonged QTc No change
[2016-12-22] MEDS ORDERED: Oxycodone/Acetaminophen 5/325 mg Tab PO PRN (10:30)
--- NOTE | 2016-12-22 11:32 | CT ---
PROCEDURE: CT HEAD WITHOUT CONTRAST. HISTORY: Fall COMPARISON: 10/10/2016. TECHNIQUE: Axial computed tomography images were obtained through the head/brain without intravenous contrast. Radiation dose: Total exam DLP = 757.33 mGy-cm. This CT exam was performed using one or more of the following dose reduction techniques: Automated exposure control, adjustment of the mA and/or kV according to patient size, and/or use of iterative reconstruction technique. FINDINGS: HEMORRHAGE: No intracranial hemorrhage. BRAIN: Arambula-white matter differentiation is preserved. There is no mass, mass effect or abnormal extra-axial fluid collection. VENTRICLES: The ventricles are normal in size, shape and configuration. There is nonspecific prominence of bifrontal extra-axial CSF spaces. CALVARIUM: There is no calvarial fracture or extracranial soft tissue swelling. PARANASAL SINUSES: There is mild polypoid mucosal thickening in the right maxillary sinus. The remaining included paranasal sinuses are predominantly clear. MASTOID AIR CELLS: Predominantly clear. OTHER FINDINGS: None. IMPRESSION: No acute intracranial abnormality.
--- NOTE | 2016-12-22 12:12 | RAD ---
PROCEDURE: Left ribs HISTORY: rib pain COMPARISON: TECHNIQUE: Three views FINDINGS: There is no evidence of rib fracture or pneumothorax. There are no bony lesions IMPRESSION: Negative study
--- NOTE | 2016-12-22 12:14 | RAD ---
PROCEDURE: Right Hand Radiographs. HISTORY: hand pain COMPARISON: None. FINDINGS: BONES: There is a chronic fracture deformity of the distal radius. There is no acute fracture JOINTS: Normal. No osteoarthritic changes. SOFT TISSUES: Normal. OTHER FINDINGS: None. IMPRESSION: No acute findings
[2016-12-22] MEDS ORDERED: Venlafaxine 75 mg ER Cap PO SCH ×2 (13:00→13:02)
[2016-12-22 16:56] VITALS: BP 140/118; PULSE 116; TEMP 98; O2SAT 98
[2016-12-22 17:54] VITALS: RESP 18; BMI 26.7
[2016-12-22] MEDS ORDERED: Pneumococcal 23-Valent Vaccine IM ONE (17:54)
--- NOTE | 2016-12-22 17:57 | CON ---
DATE: 12/22/2016 CHIEF COMPLAINT: Migraines and history of syncope. HISTORY OF PRESENT ILLNESS: This is a 51-year-old who is well known to me, who does not listen to an y of our previous recommendations and therefore we will defer her to possibly another outpatient neur ologist at this time. She is a 51-year-old woman with past medical history of polysubstance abuse, d rug overdoses, chronically addicted to pain medicine with chronic pain management. She has a history of a questionable seizure disorder, epileptic and nonepileptic, on Keppra 500 mg p.o. 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 She took her medicines as prescribed and then she was very tearful during the exam. Her U-tox was positive for cocaine, benzos as well as opiates and barbiturates. Currently, she has a mild hea dache and has chronic pain, complaining of pain all over. 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 She is sitting up in bed, on the phone, and does n ot seem to be in pain, but when talking to her she says in pain which is questionable with her. She is still on Percocet on her medication list. No seizures. PAST MEDICAL HISTORY: History of peptic ulcer disease status post Billroth II, gastrectomy and vagot thomas complicated by gastroparesis, history of nonepileptic seizures and questionable epileptic seizure s on Keppra, history of anxiety, hypertension, migraines, chronic fatigue, chronic , chronic devon k pain, opiate dependent, history of polysubstance abuse. SOCIAL HISTORY: Denies illicit drug use, smoking, or EtOH use. She is positive for cocaine and kaz iturates and opiates on her U-tox at this admission. ALLERGIES: PENICILLIN, NAPROXEN AND COMPAZINE. REVIEW OF SYSTEMS: A 14-point review of systems is negative except in the HPI. MEDICATIONS: Reviewed via nurse's reconciliation sheet. PHYSICAL EXAMINATION: VITAL SIGNS: Temperature afebrile, pulse rate of 96, blood pressure 121/73, respiratory rate of 18. GENERAL: The patient is sitting up in bed in no acute distress. HEENT: Atraumatic, normocephalic. PERRLA. Extraocular muscles intact. NECK: Supple, no JVD, no adenopathy noted. LUNGS: Clear to auscultation. No adventitious sounds. HEART: S1, S2, normal rate and rhythm. No murmurs, rubs, or gallops. ABDOMEN: Soft, nontender, nondistended. Bowel sounds are present. EXTREMITIES: No clubbing, no cyanosis. Peripheral pulses 2+ felt bilaterally. NEUROLOGIC: The patient is alert, oriented to person, place, month and year, anxious and flat affect . Speech is fluent, without any errors. Cranial nerves II-XII are intact. Motor: Normal tone, nor mal bulk of muscle. Moves all extremities equally. Sensory: Light touch, pinprick, proprioception and vibration intact. DTRs are 2+ throughout. Coordination: Cpybey-wv-oehg intact. Gait is deferre d for now. LABORATORIES: Sodium 137, potassium 3.5, chloride 108, carbon dioxide 18, BUN of 19, creatinine of 1 . Random glucose of 287. U-tox positive for cocaine, barbiturates and opiates. ASSESSMENT AND PLAN: This is a 51-year-old woman with a history of chronic anemia, history of questi onable epileptic seizures on Keppra 500 mg p.o. b.i.d., history of peptic ulcer disease status post B illroth II, gastrectomy and vagotomy complicated by gastroparesis, anxiety, depression, chronic pain syndrome, opiate dependent and history of chronic back pain who had a questionable syncopal episode a nd worsening headaches, found to have polysubstance abuse and overdose. U-tox was positive for cocai ne, opiates and barbiturates. At this time, her aggravating headaches are likely secondary to vasosp asm cocaine-induced and polysubstance abuse. She does need a psych consult given her history of psyc hiatric meds and her having a flat, anxious and depressed affect. At this time, continue on Keppra f or questionable seizure disorder and avoid all narcotics since she is a polysubstance abuser and over doser. I would recommend Fioricet 1 tab q. 4 hours p.r.n. at the acute onset of headache or gabapent in 600 mg p.o. at bedtime for neuropathic pain as well as headache. At this time, continue with curr ent present medical management. No further neurological workup needed at this time. I will sign off . Abel Montes MD cc: [phone] TT: 12/22/2016 17:57:20 Confirmation # [id number] Dictation # [id number] mn
[2016-12-22] MEDS ORDERED: HYDROmorphone 0.5 mg/0.5 ml ISec IVP ONE (18:48)
--- NOTE | 2016-12-22 19:01 | CP.PCM.PN ---
Subjective - Date & Time of Evaluation Date of Evaluation: 12/22/16 Time of Evaluation: 18:48 - Subjective Subjective: responded to code rosemary, pt wants to leave states she is in pain and no body is giving her any thing.security was called because she was threatening the staff.that what ever you say . i am leaving .pt was admitted for drug overdose and ETOH and recurrently admitted for abdominal pain and demanding pain meds. . pt has hx of drug use.pt denies killing her self. Objective - Vital Signs/Intake and Output Vital Signs (last 24 hours): Temp Pulse Resp BP Pulse Ox 98 F 71 18 140/118 H 98 12/22/16 17:29 12/22/16 17:29 12/22/16 17:29 12/22/16 17:29 12/22/16 16:00 - Medications Medications: Current Medications Clonazepam (Klonopin) 1 mg PO BID PRN; Protocol PRN Reason: Anxiety Last Admin: 12/22/16 13:33 Dose: 1 mg Hydromorphone HCl (Dilaudid) 0.5 mg IVP STAT ONE Stop: 12/22/16 18:49 Hydroxyzine Pamoate (Vistaril) 50 mg PO Q8 PRN; Protocol PRN Reason: Anxiety Sodium Chloride (Sodium Chloride 0.9%) 1,000 mls @ 125 mls/hr IV .Q8H [facility] Last Admin: 12/22/16 15:09 Dose: 125 mls/hr Levetiracetam (Keppra) 500 mg PO BID [facility] Last Admin: 12/22/16 17:23 Dose: 500 mg Mirtazapine (Remeron) 45 mg PO HS [facility] Ondansetron HCl (Zofran Odt) 4 mg PO Q8 [facility] Last Admin: 12/22/16 13:36 Dose: 4 mg Ondansetron HCl (Zofran Inj) 4 mg IVP Q6 PRN PRN Reason: Nausea/Vomiting Oxycodone/Acetaminophen (Percocet 5/325 Mg Tab) 1 tab PO Q12H PRN PRN Reason: Pain, moderate (4-7) Stop: 12/25/16 10:31 Last Admin: 12/22/16 11:07 Dose: 1 tab Pantoprazole Sodium (Protonix Ec Tab) 40 mg PO DAILY [facility] Last Admin: 12/22/16 08:59 Dose: 40 mg Quetiapine Fumarate (Seroquel) 200 mg PO HS [facility] PRN Reason: Protocol Venlafaxine HCl (Effexor Xr) 150 mg PO DAILY [facility] - Constitutional Appears: No Acute Distress - Head Exam Head Exam: NORMOCEPHALIC - Eye Exam Eye Exam: Normal appearance - ENT Exam ENT Exam: Mucous Membranes Moist - Neck Exam Neck Exam: Full ROM - Respiratory Exam Respiratory Exam: Clear to Ausculation Bilateral - Cardiovascular Exam Cardiovascular Exam: RRR, +S1, +S2 - Rectal Exam Rectal Exam: Deferred - Extremities Exam Extremities Exam: Full ROM - Neurological Exam Neurological Exam: Alert, Awake, Oriented x3 - Psychiatric Exam Psychiatric exam: Anxious - Skin Skin Exam: Dry, Warm Assessment and Plan - Assessment and Plan (Free Text) Assessment: drug abuse behavior. Plan: ativan 1 mg x1 now.
--- NOTE | 2016-12-24 15:09 | CP.PCM.DIS ---
<Ismael Alba - Last Filed: 12/24/16 15:12> Provider - Provider Date of Admission: 12/22/16 05:44 Attending physician: Darrell Gatica MD Consults: Neurology, Psych Time Spent in preparation of Discharge (in minutes): 45 Diagnosis - Discharge Diagnosis (1) Syncope Status: Acute Priority: Medium Hospital Course - Lab Results Lab Results: Most Recent Lab Values WBC 5.7 10^3/ul (4.5-11.0) 12/22/16 04:22 RBC 3.47 10^6/uL (3.5-6.1) L 12/22/16 04:22 Hgb 9.1 gm/dL (12.0-16.0) L 12/22/16 04:22 Hct 28.1 % (36.0-48.0) L 12/22/16 04:22 MCV 81.0 fL (80.0-105.0) 12/22/16 04:22 MCH 26.2 pg (25.0-35.0) 12/22/16 04:22 MCHC 32.4 g/dl (31.0-37.0) 12/22/16 04:22 RDW 15.9 % (11.5-14.5) H 12/22/16 04:22 Plt Count 204 10^3/uL (120.0-450.0) 12/22/16 04:22 MPV 10.0 fl (7.0-11.0) 12/22/16 04:22 Gran % 66.7 % (50.0-68.0) 12/22/16 04:22 Lymph % (Auto) 25.2 % (22.0-35.0) 12/22/16 04:22 [place] % (Auto) 6.5 % (1.0-6.0) H 12/22/16 04:22 Eos % (Auto) 1.1 % (1.5-5.0) L 12/22/16 04:22 Baso % (Auto) 0.5 % (0.0-3.0) 12/22/16 04:22 Gran # 3.79 (1.4-6.5) 12/22/16 04:22 Lymph # 1.4 (1.2-3.4) 12/22/16 04:22 [place] # 0.4 (0.1-0.6) 12/22/16 04:22 Eos # 0.1 (0.0-0.7) 12/22/16 04:22 Baso # 0.03 K/mm3 (0.0-2.0) 12/22/16 04:22 pCO2 36 mm/Hg (35-45) 12/22/16 05:56 pO2 108.0 mm/Hg (80-100) H 12/22/16 05:56 HCO3 19.0 mmol/L (21-28) L 12/22/16 05:56 ABG pH 7.33 (7.35-7.45) L 12/22/16 05:56 ABG Total CO2 20.1 mmol.L (22-28) L 12/22/16 05:56 ABG O2 Saturation 93.9 % (95-98) L 12/22/16 05:56 ABG Base Excess -6.2 mmol/L (-2.0-3.0) L 12/22/16 05:56 ABG Potassium 3.5 mmol/L (3.6-5.2) L 12/22/16 05:56 Sodium 140.0 mmol/L (132-148) 12/22/16 05:56 Chloride 116.0 mmol/L (98-107) H 12/22/16 05:56 Glucose 198 mg/dl (65-105) H 12/22/16 05:56 Lactate 2.0 mmol/L (0.7-2.1) 12/22/16 05:56 FiO2 21.0 % 12/22/16 05:56 Sodium 137 mmol/L (132-148) 12/22/16 04:22 Potassium 3.5 mmol/L (3.6-5.0) L 12/22/16 04:22 Chloride 108 mmol/L (95-110) 12/22/16 04:22 Carbon Dioxide 18 mmol/L (21-33) L 12/22/16 04:22 Anion Gap 15 (10-20) 12/22/16 04:22 BUN 19 mg/dL (7-21) 12/22/16 04:22 Creatinine 1.0 mg/dL (0.5-1.4) 12/22/16 04:22 Est GFR ( Amer) > 60 12/22/16 04:22 Est GFR (Non-Af Amer) 58 12/22/16 04:22 Random Glucose 287 mg/dL (70-110) H 12/22/16 04:22 Calcium 9.0 mg/dL (8.4-10.5) 12/22/16 04:22 Total Bilirubin 0.2 mg/dL (0.2-1.3) 12/22/16 04:22 AST 22 U/L (15-39) 12/22/16 04:22 ALT 39 U/L (7-56) 12/22/16 04:22 Alkaline Phosphatase 77 U/L (38-133) 12/22/16 04:22 Total Protein 6.5 g/dL (5.8-8.3) 12/22/16 04:22 Albumin 3.9 g/dL (3.0-4.8) 12/22/16 04:22 Globulin 2.7 gm/dL 12/22/16 04:22 Albumin/Globulin Ratio 1.4 (1.1-1.8) 12/22/16 04:22 Arterial Blood Potassium 3.5 mmol/L (3.6-5.2) L 12/22/16 05:56 Urine Color Yellow (YELLOW) 12/22/16 05:25 Urine Appearance Clear (CLEAR) 12/22/16 05:25 Urine pH 6.0 (4.7-8.0) 12/22/16 05:25 Ur Specific [place] 1.025 (1.005-1.035) 12/22/16 05:25 Urine Protein Trace mg/dL (<30 mg/dL) H 12/22/16 05:25 Urine Glucose (UA) 250 mg/dL (NEGATIVE) H 12/22/16 05:25 Urine Ketones Negative mg/dL (NEGATIVE) 12/22/16 05:25 Urine Blood Trace-intact (NEGATIVE) H 12/22/16 05:25 Urine Nitrate Negative (NEGATIVE) 12/22/16 05:25 Urine Bilirubin Negative (NEGATIVE) 12/22/16 05:25 Urine Urobilinogen 0.2 E.U./dL (<1 E.U./dL) 12/22/16 05:25 Ur Leukocyte Esterase Negative [place]/uL (NEGATIVE) 12/22/16 05:25 Urine RBC 0 - 2 /hpf (0-2) 12/22/16 05:25 Urine WBC 0 - 2 /hpf (0-6) 12/22/16 05:25 Ur Epithelial Cells 0 - 2 /hpf (0-5) 12/22/16 05:25 Salicylates < 1 mg/dL (2.0-20.0) L 12/22/16 04:22 Urine Opiates Screen Positive (NEGATIVE) H 12/22/16 05:25 Urine Methadone Screen Negative (NEGATIVE) 12/22/16 05:25 Acetaminophen < 10.0 ug/ml (10.0-20.0) L 12/22/16 04:22 Ur Barbiturates Screen Positive (NEGATIVE) H 12/22/16 05:25 Ur Phencyclidine Scrn Negative (NEGATIVE) 12/22/16 05:25 Ur Amphetamines Screen Negative (NEGATIVE) 12/22/16 05:25 U Benzodiazepines Scrn Positive (NEGATIVE) H 12/22/16 05:25 U Oth Cocaine Metabols Positive (NEGATIVE) H 12/22/16 05:25 U Cannabinoids Screen Negative (NEGATIVE) 12/22/16 05:25 Alcohol, Quantitative < 10 mg/dL (0-10) 12/22/16 04:22 - Hospital Course Hospital Course: 51 year old F with extensive pmh presents to [facility] following "passed out". Pt states that she was in an argument with her family members when she passed out in the middle of the argument. She denied any drug overdose. In the ED the basic lab work was done including CBC, CMP, Utox, Urinalysis. Utox positive for opiods, cocain, barbiturate, and benzos. EKG showed NSR with prolog QT. CT head showed no acute intracranial abnormality. Pt complained of rib and R hand pain - Xray of rib and hand were both negative for acute pathology. Neurology was consulted. Pt admitted to the floor for syncope work up. A jacque riley was called when pt became agitated requesting pain medication and threatening the staff. At this point the patient decided to leave against medical advice. Discharge Exam - Head Exam Head Exam: NORMOCEPHALIC - Eye Exam Eye Exam: EOMI, Normal appearance, PERRL Pupil Exam: NORMAL ACCOMODATION, PERRL - Respiratory Exam Respiratory Exam: Clear to PA & Lateral, NORMAL BREATHING PATTERN, UNREMARKABLE. absent: Rales, Rhonchi, Wheezes - Cardiovascular Exam Cardiovascular Exam: REGULAR RHYTHM. absent: RRR, +S1, +S2 - GI/Abdominal Exam GI & Abdominal Exam: Normal Bowel Sounds, Soft. absent: Tenderness - Neurological Exam Neurological exam: Alert, CN II-XII Intact, Oriented x3 - Psychiatric Exam Psychiatric exam: Normal Affect, Normal Mood - Skin Skin Exam: Dry, Intact, Normal Color, Warm Discharge Plan - Follow Up Plan Condition: STABLE Disposition: AGAINST MEDICAL ADVICE Patient education suggested?: Yes Additional Instructions: If your symptoms worsen come back to the ED. Follow up with your PMD with in 1-2 days. Referrals: Maldonado Montes MD [Staff Provider] - Janice Guerra MD [Staff Provider] - <Darrell Gatica - Last Filed: 12/24/16 17:29> Provider - Provider Date of Admission: 12/22/16 05:44 Attending physician: Darrell Gatica MD Hospital Course - Lab Results Lab Results: Most Recent Lab Values WBC 5.7 10^3/ul (4.5-11.0) 12/22/16 04:22 RBC 3.47 10^6/uL (3.5-6.1) L 12/22/16 04:22 Hgb 9.1 gm/dL (12.0-16.0) L 12/22/16 04:22 Hct 28.1 % (36.0-48.0) L 12/22/16 04:22 MCV 81.0 fL (80.0-105.0) 12/22/16 04:22 MCH 26.2 pg (25.0-35.0) 12/22/16 04:22 MCHC 32.4 g/dl (31.0-37.0) 12/22/16 04:22 RDW 15.9 % (11.5-14.5) H 12/22/16 04:22 Plt Count 204 10^3/uL (120.0-450.0) 12/22/16 04:22 MPV 10.0 fl (7.0-11.0) 12/22/16 04:22 Gran % 66.7 % (50.0-68.0) 12/22/16 04:22 Lymph % (Auto) 25.2 % (22.0-35.0) 12/22/16 04:22 [place] % (Auto) 6.5 % (1.0-6.0) H 12/22/16 04:22 Eos % (Auto) 1.1 % (1.5-5.0) L 12/22/16 04:22 Baso % (Auto) 0.5 % (0.0-3.0) 12/22/16 04:22 Gran # 3.79 (1.4-6.5) 12/22/16 04:22 Lymph # 1.4 (1.2-3.4) 12/22/16 04:22 [place] # 0.4 (0.1-0.6) 12/22/16 04:22 Eos # 0.1 (0.0-0.7) 12/22/16 04:22 Baso # 0.03 K/mm3 (0.0-2.0) 12/22/16 04:22 pCO2 36 mm/Hg (35-45) 12/22/16 05:56 pO2 108.0 mm/Hg (80-100) H 12/22/16 05:56 HCO3 19.0 mmol/L (21-28) L 12/22/16 05:56 ABG pH 7.33 (7.35-7.45) L 12/22/16 05:56 ABG Total CO2 20.1 mmol.L (22-28) L 12/22/16 05:56 ABG O2 Saturation 93.9 % (95-98) L 12/22/16 05:56 ABG Base Excess -6.2 mmol/L (-2.0-3.0) L 12/22/16 05:56 ABG Potassium 3.5 mmol/L (3.6-5.2) L 12/22/16 05:56 Sodium 140.0 mmol/L (132-148) 12/22/16 05:56 Chloride 116.0 mmol/L (98-107) H 12/22/16 05:56 Glucose 198 mg/dl (65-105) H 12/22/16 05:56 Lactate 2.0 mmol/L (0.7-2.1) 12/22/16 05:56 FiO2 21.0 % 12/22/16 05:56 Sodium 137 mmol/L (132-148) 12/22/16 04:22 Potassium 3.5 mmol/L (3.6-5.0) L 12/22/16 04:22 Chloride 108 mmol/L (95-110) 12/22/16 04:22 Carbon Dioxide 18 mmol/L (21-33) L 12/22/16 04:22 Anion Gap 15 (10-20) 12/22/16 04:22 BUN 19 mg/dL (7-21) 12/22/16 04:22 Creatinine 1.0 mg/dL (0.5-1.4) 12/22/16 04:22 Est GFR ( Amer) > 60 12/22/16 04:22 Est GFR (Non-Af Amer) 58 12/22/16 04:22 Random Glucose 287 mg/dL (70-110) H 12/22/16 04:22 Calcium 9.0 mg/dL (8.4-10.5) 12/22/16 04:22 Total Bilirubin 0.2 mg/dL (0.2-1.3) 12/22/16 04:22 AST 22 U/L (15-39) 12/22/16 04:22 ALT 39 U/L (7-56) 12/22/16 04:22 Alkaline Phosphatase 77 U/L (38-133) 12/22/16 04:22 Total Protein 6.5 g/dL (5.8-8.3) 12/22/16 04:22 Albumin 3.9 g/dL (3.0-4.8) 12/22/16 04:22 Globulin 2.7 gm/dL 12/22/16 04:22 Albumin/Globulin Ratio 1.4 (1.1-1.8) 12/22/16 04:22 Arterial Blood Potassium 3.5 mmol/L (3.6-5.2) L 12/22/16 05:56 Urine Color Yellow (YELLOW) 12/22/16 05:25 Urine Appearance Clear (CLEAR) 12/22/16 05:25 Urine pH 6.0 (4.7-8.0) 12/22/16 05:25 Ur Specific [place] 1.025 (1.005-1.035) 12/22/16 05:25 Urine Protein Trace mg/dL (<30 mg/dL) H 12/22/16 05:25 Urine Glucose (UA) 250 mg/dL (NEGATIVE) H 12/22/16 05:25 Urine Ketones Negative mg/dL (NEGATIVE) 12/22/16 05:25 Urine Blood Trace-intact (NEGATIVE) H 12/22/16 05:25 Urine Nitrate Negative (NEGATIVE) 12/22/16 05:25 Urine Bilirubin Negative (NEGATIVE) 12/22/16 05:25 Urine Urobilinogen 0.2 E.U./dL (<1 E.U./dL) 12/22/16 05:25 Ur Leukocyte Esterase Negative [place]/uL (NEGATIVE) 12/22/16 05:25 Urine RBC 0 - 2 /hpf (0-2) 12/22/16 05:25 Urine WBC 0 - 2 /hpf (0-6) 12/22/16 05:25 Ur Epithelial Cells 0 - 2 /hpf (0-5) 12/22/16 05:25 Salicylates < 1 mg/dL (2.0-20.0) L 12/22/16 04:22 Urine Opiates Screen Positive (NEGATIVE) H 12/22/16 05:25 Urine Methadone Screen Negative (NEGATIVE) 12/22/16 05:25 Acetaminophen < 10.0 ug/ml (10.0-20.0) L 12/22/16 04:22 Ur Barbiturates Screen Positive (NEGATIVE) H 12/22/16 05:25 Ur Phencyclidine Scrn Negative (NEGATIVE) 12/22/16 05:25 Ur Amphetamines Screen Negative (NEGATIVE) 12/22/16 05:25 U Benzodiazepines Scrn Positive (NEGATIVE) H 12/22/16 05:25 U Oth Cocaine Metabols Positive (NEGATIVE) H 12/22/16 05:25 U Cannabinoids Screen Negative (NEGATIVE) 12/22/16 05:25 Alcohol, Quantitative < 10 mg/dL (0-10) 12/22/16 04:22 Attending/Attestation - Attestation I have personally seen and examined this patient.: Yes I have fully participated in the care of the patient.: Yes I have reviewed all pertinent clinical information, including history, physical exam and plan: Yes Notes (Text): 12/24/16 17:19 51 year old female with extensive past medical history including substance abuse , chronic opiate abuse, and gastroparesis who presented with altered mental status and ?syncope. Per patient she was arguing with her family members when she "passed out". She denies overdosing of any medications. She denied thoughts or intention of harming herself. Urine drug screen was positive for opioids, cocaine, barbiturates, and benzodiazepines. CT head was negative for any acute intracranial abnormality. Patient complained of rib pain and right hand pain. Xrays were negative for acute fracture. She was admitted to remote telemetry unit. Neurology and psychiatry evaluations were requested. However once on the floor patient refused to wear her monitor. She was demanding more pain medications and exhibiting pain seeking behavior. Jacque riley was called when she became agitated, demanding and apparently threatening the staff. House doctor was called and patient signed out AMA. Darrell Gatica MD Hospitalist.
== END 2016-12-22 20:09 | disposition left against medical advice (07) | DRG 449 ==
LOC: ED 03:48 → ERH 05:44 → 3RSO 14:45
PROVIDERS: ADMIT Hospitalist; ATTEND Internal Medicine
DX: T39.1X1A Poisoning by 4-Aminophenol derivatives, accidental (unintentional), initial encounter (principal); F14.10 Cocaine abuse, uncomplicated; K31.84 Gastroparesis; I67.848 Other cerebrovascular vasospasm and vasoconstriction; E11.43 Type 2 diabetes mellitus with diabetic autonomic (poly)neuropathy; F11.20 Opioid dependence, uncomplicated; I10 Essential (primary) hypertension; I25.10 Atherosclerotic heart disease of native coronary artery without angina pectoris; F41.9 Anxiety disorder, unspecified; D64.9 Anemia, unspecified; G40.909 Epilepsy, unspecified, not intractable, without status epilepticus; G43.909 Migraine, unspecified, not intractable, without status migrainosus; G89.4 Chronic pain syndrome; F32.9 Major depressive disorder, single episode, unspecified; R53.82 Chronic fatigue, unspecified; Y92.009 Unspecified place in unspecified non-institutional (private) residence as the place of occurrence of the external cause; Z76.5 Malingerer [conscious simulation]; Z98.84 Bariatric surgery status; Z87.11 Personal history of peptic ulcer disease

== ENCOUNTER 2016-12-22 20:24 | Observation (INO) | payer MEDICAID ==
[2016-12-22 20:24] VITALS: BMI 26.7
[2016-12-22 20:43] VITALS: TEMP 98.1
[2016-12-22] MEDS ORDERED: Sodium Chloride 0.9% 1,000 ML IV STA (21:11)
[2016-12-22 22:18] LABS: ADD MANUAL DIFF? NO
[2016-12-22 22:30] LABS: BASO # 0.03 K/mm3 (0.0-2.0); BASO % 0.2 % (0.0-3.0); EOS # 0.2 (0.0-0.7); EOS % 1.9 % (1.5-5.0); GRAN % 70.4 % (50.0-68.0); HEMATOCRIT 32.7 % (36.0-48.0); LYMPH # 2.7 (1.2-3.4); LYMPH % 21.4 % (22.0-35.0); MEAN CELL VOLUME 83.8 fL (80.0-105.0); MEAN CORPUSCULAR HEMOGLOBIN 26.7 pg (25.0-35.0); MEAN CORPUSCULAR HGB CONC 31.8 g/dl (31.0-37.0); MEAN PLATELET VOLUME 10.2 fl (7.0-11.0); MONO # 0.8 (0.1-0.6); MONO % 6.1 % (1.0-6.0); PLATELET COUNT 249 10^3/uL (120.0-450.0); RED CELL DISTRIBUTION WIDTH 16.5 % (11.5-14.5); WHITE BLOOD COUNT 12.4 10^3/ul (4.5-11.0)
--- NOTE | 2016-12-22 23:56 | ED PDOC ---
Arrival/HPI - General Chief Complaint: Abdominal Pain Time Seen by Provider: 12/22/16 20:52 Historian: Patient - History of Present Illness Narrative History of Present Illness (Text): 12/22/16 20:52 Clara Ortiz is a 51 year old female, whose past medical history includes CAD, hypertension, diabetes, seizures, anxiety, and depression, presents to the emergency department complaining of abdominal pain associated with diarrhea for past few hours. Patient was admitted to the hospital yesterday for possible drug overdose, and patient signed out against medical advice few hours prior to arrival. Denies fever, chills, headache, dizziness, chest pain, shortness of breath, nausea, vomiting, urinary symptoms, or any other complaints at this time. Time/Duration: 1-3 hours Symptom Onset: Gradual Symptom Course: Unchanged Severity Level: Mild Activities at Onset: Light Past Medical History - Provider Review Nursing Documentation Reviewed: Yes - Infectious Disease Hx of Infectious Diseases: None - Tetanus Immunization Tetanus Immunization: Unknown - Past Medical History Past Medical History: No Previous - Cardiac Hx Cardiac Disorders: Yes Hx Hypertension: Yes - Pulmonary Hx Respiratory Disorders: Yes (SMOKES CIGARETTES) Hx Pneumonia: Yes Hx Tuberculosis: No - Neurological Hx Neurological Disorder: Yes (SYNCOPE) HX Cerebrovascular Accident: No - HEENT Hx HEENT Disorder: No - Renal Hx Renal Disorder: No - Endocrine/Metabolic Hx Endocrine Disorders: Yes Hx Diabetes Mellitus Type 2: Yes (Borderline) - Hematological/Oncological Hx Blood Disorders: No Hx Cancer: No - Integumentary Hx Dermatological Disorder: No - Musculoskeletal/Rheumatological Hx Musculoskeletal Disorders: Yes Hx Falls: Yes - Gastrointestinal Hx Gastrointestinal Disorders: Yes (COLITIS,GASTRIC [id number],) Other/Comment: Gastropheresis - Genitourinary/Gynecological Hx Genitourinary Disorders: No Hx Sexually Transmitted Diseases: No - Psychiatric Hx Psychophysiologic Disorder: Yes Hx Anxiety: Yes Hx Depression: Yes Hx Panic Disorder: Yes Hx Physical Abuse: No Hx Sexual Abuse: No Hx Substance Use: Yes (MULTI RX DRUG ABUSE.) Other/Comment: ETOH USE,MULTI RX DRUG ABUSE.OD - Surgical History Hx Cholecystectomy: Yes Hx Gastric Bypass Surgery: Yes (2013) - Anesthesia Hx Anesthesia: Yes Hx Anesthesia Reactions: No Hx Malignant Hyperthermia: No - Suicidal Assessment Feels Threatened In Home Enviroment: No Family/Social History - Physician Review Nursing Documentation Reviewed: Yes Family/Social History: No Known Family HX Smoking Status: Current Some Days Smoker Hx Alcohol Use: Yes (DRINKS SOCIALLY. LAST DRANK LAST NIGHT HAVING 5 MIXED DRINKS.) Hx Substance Use: Yes (MULTI RX DRUG ABUSE.) Hx Substance Use Treatment: No Allergies/Home Meds Allergies/Adverse Reactions: Allergies Penicillins Allergy (Intermediate, Verified 12/22/16 16:00) HIVES morphine Allergy (Verified 12/22/16 16:00) ITCHING naproxen [From Naprosyn] Allergy (Verified 12/22/16 16:00) NAUSEA compazine Allergy (Intermediate, Uncoded 12/22/16 16:00) muscle stiffening Review of Systems - Physician Review All systems were reviewed & negative as marked: Yes - Review of Systems Constitutional: Normal. absent: Fatigue, Fevers Cardiovascular: Normal. absent: Chest Pain, Palpitations Gastrointestinal: Abdominal Pain, Diarrhea. absent: Nausea, Vomiting, Appetite Changes Genitourinary Female: Normal. absent: Dysuria, Frequency Neurological: Normal Psychiatric: Normal Physical Exam Vital Signs Reviewed: Yes Vital Signs Temp Pulse Resp BP Pulse Ox 12/23/16 07:09 98 H 16 131/60 98 12/23/16 04:00 94 H 16 109/64 98 12/23/16 00:21 71 16 99 12/22/16 20:32 98.1 F 82 18 128/84 99 Temperature: Afebrile Blood Pressure: Normal Pulse: Regular Respiratory Rate: Normal Appearance: Positive for: Well-Appearing, Non-Toxic, Comfortable Pain Distress: None Mental Status: Positive for: Alert and Oriented X 3 - Systems Exam Head: Present: Atraumatic, Normocephalic Pupils: Present: PERRL Conjunctiva: Present: Normal Mouth: Present: Moist Mucous Membranes Respiratory/Chest: Present: Clear to Auscultation, Good Air Exchange. No: Respiratory Distress, Accessory Muscle Use Cardiovascular: Present: Regular Rate and Rhythm, Normal S1, S2. No: Murmurs Abdomen: Present: Normal Bowel Sounds. No: Tenderness, Distention, Peritoneal Signs Upper Extremity: Present: Normal Inspection. No: Cyanosis, Edema Lower Extremity: Present: Normal Inspection. No: Edema Neurological: Present: GCS=15, CN II-XII Intact, Speech Normal, Motor Func Grossly Intact, Normal Sensory Function Skin: Present: Warm, Dry, Normal Color. No: Rashes Psychiatric: Present: Alert, Oriented x 3, Normal Insight, Normal Concentration Medical Decision Making ED Course and Treatment: 12/22/16 20:52 Impression: A 51 year old female who presents to the emergency department complaining of abdominal pain associated with diarrhea for past few hours. Plan: -- Labs, lipase -- CT abdomen pelvis -- IV fluids -- Urinalysis -- Reassess and disposition Progress Notes: Will place patient on EDOBS Patient slept in the ED for 11 hours without any complaints of pain or vomiting will discharge ambulated well out of ed 12/23/16 0630 Reassessment Condition: Re-examined, Improved - Lab Interpretations I have reviewed the lab results: Yes - Medication Orders Current Medication Orders: Discontinued Medications Sodium Chloride (Sodium Chloride 0.9%) 1,000 mls @ 100 mls/hr IV .Q10H STA Stop: 12/23/16 07:10 Last Admin: 12/23/16 00:29 Dose: 100 mls/hr Naloxone HCl (Narcan) 0.4 mg IVP ONCE ONE Stop: 12/23/16 06:24 ED OBSERVATION Discharge: Yes Date of observation admission: 12/22/16 Time of observation admission: 21:00 - Observation admission statement Patient is being placed in observation because:: abdominal pain - Goals of Observation Goals of observation are:: Pending labs, imaging, reevaluation and dispo - Progress Note Progress Note: 12/22/16 23:00 Resting comfortably with stable vitals. 12/23/16 01:00 Patient sleeping in the emergency department. stable vitals. 12/23/16 03:00 Patient resting in emergency department with stable vitals 12/23/16 05:00 Patient is sleeping with stable vitals. - Scribe Statement The provider has reviewed the documentation as recorded by the Jose Antonio Wang Provider Attestation: Provider Scribe Attestation: All medical record entries made by the Jose Antonio were at my direction and personally dictated by me. I have reviewed the chart and agree that the record accurately reflects my personal performance of the history, physical exam, medical decision making, and the department course for this patient. I have also personally directed, reviewed, and agree with the discharge instructions and disposition. Disposition/Present on Arrival - Present on Arrival Any Indicators Present on Arrival: No History of DVT/PE: No History of Uncontrolled Diabetes: No Urinary Catheter: No History of Decub. Ulcer: No History Surgical Site Infection Following: None - Disposition Have Diagnosis and Disposition been Completed?: Yes Diagnosis: Abdominal pain, Chronic pain Disposition: HOME/ ROUTINE Disposition Time: 06:12 Condition: GOOD
[2016-12-23 00:19] LABS: INR 0.95 (0.93-1.08); PARTIAL THROMBOPLASTIN TIME 22.1 Seconds (23.7-30.8)
[2016-12-23 00:22] VITALS: RESP 16
[2016-12-23 00:23] LABS: ALB/GLOB RATIO 1.5 (1.1-1.8); BILIRUBIN,TOTAL 0.4 mg/dL (0.2-1.3); CALCIUM 9.9 mg/dL (8.4-10.5); TOTAL PROTEIN 7.6 g/dL (5.8-8.3)
[2016-12-23 00:31] LABS: POTASSIUM 5.3 mmol/L (3.6-5.0)
[2016-12-23 04:17] VITALS: O2SAT 98
[2016-12-23] MEDS ORDERED: Naloxone 0.4 mg/ml Inj (Adult) IVP ONE (06:23)
[2016-12-23 07:11] VITALS: BP 131/60; PULSE 98
== END 2016-12-23 06:13 | disposition home or self-care (01) ==
LOC: ED 20:24 → EROBSV 21:00
PROVIDERS: ADMIT Emergency Medicine; ATTEND Emergency Medicine
DX: R10.9 Unspecified abdominal pain (principal); G89.29 Other chronic pain; I10 Essential (primary) hypertension; Z72.0 Tobacco use
CPT/HCPCS: 80053; 83690; 85025; 85610; 85730; 99283; G0378; J7040

== ENCOUNTER 2016-12-24 00:33 | Emergency (ER) | payer MEDICAID ==
--- NOTE | 2016-12-24 00:53 | ED PDOC ---
Arrival/HPI - General Time Seen by Provider: 12/24/16 00:36 Historian: Patient - History of Present Illness Narrative History of Present Illness (Text): 12/24/16 00:52 Clara Ortiz is a 51 year old female former smoker, whose past medical history includes hypertension, gastroparesis, diabetes, GERD, polysubstance abuse, and anemia, who presents to the ED brought in by EMS for substance abuse. Patient states she took Klonopin at home. Patient denies any fever, chills, chest pain, shortness of breath, nausea, vomiting, diarrhea, urinary symptoms, back pain, neck pain, headache, dizziness, or any other complaints. Time/Duration: Other (tonight) Symptom Onset: Gradual Symptom Course: Unchanged Activities at Onset: Rest, Light Context: Home Past Medical History - Provider Review Nursing Documentation Reviewed: Yes - Infectious Disease Hx of Infectious Diseases: None - Tetanus Immunization Tetanus Immunization: Unknown - Past Medical History Past Medical History: No Previous - Cardiac Hx Cardiac Disorders: Yes Hx Hypertension: Yes - Pulmonary Hx Respiratory Disorders: Yes (SMOKES CIGARETTES) Hx Pneumonia: Yes Hx Tuberculosis: No - Neurological Hx Neurological Disorder: Yes (SYNCOPE) HX Cerebrovascular Accident: No - HEENT Hx HEENT Disorder: No - Renal Hx Renal Disorder: No - Endocrine/Metabolic Hx Endocrine Disorders: Yes Hx Diabetes Mellitus Type 2: Yes (Borderline) - Hematological/Oncological Hx Blood Disorders: No Hx Cancer: No - Integumentary Hx Dermatological Disorder: No - Musculoskeletal/Rheumatological Hx Musculoskeletal Disorders: Yes Hx Falls: Yes - Gastrointestinal Hx Gastrointestinal Disorders: Yes (COLITIS,GASTRIC [id number],) Other/Comment: Gastropheresis - Genitourinary/Gynecological Hx Genitourinary Disorders: No Hx Sexually Transmitted Diseases: No - Psychiatric Hx Psychophysiologic Disorder: Yes Hx Anxiety: Yes Hx Depression: Yes Hx Panic Disorder: Yes Hx Physical Abuse: No Hx Sexual Abuse: No Hx Substance Use: Yes (MULTI RX DRUG ABUSE.) Other/Comment: ETOH USE,MULTI RX DRUG ABUSE.OD - Surgical History Hx Cholecystectomy: Yes Hx Gastric Bypass Surgery: Yes (2013) - Anesthesia Hx Anesthesia: Yes Hx Anesthesia Reactions: No Hx Malignant Hyperthermia: No - Suicidal Assessment Feels Threatened In Home Enviroment: No Family/Social History - Physician Review Nursing Documentation Reviewed: Yes Family/Social History: No Known Family HX Smoking Status: Current Some Days Smoker Hx Alcohol Use: Yes (DRINKS SOCIALLY. LAST DRANK LAST NIGHT HAVING 5 MIXED DRINKS.) Hx Substance Use: Yes (MULTI RX DRUG ABUSE.) Hx Substance Use Treatment: No Allergies/Home Meds Allergies/Adverse Reactions: Allergies Penicillins Allergy (Intermediate, Verified 12/25/16 21:14) HIVES morphine Allergy (Verified 12/25/16 21:14) ITCHING naproxen [From Naprosyn] Allergy (Verified 12/25/16 21:14) NAUSEA compazine Allergy (Intermediate, Uncoded 12/25/16 21:14) muscle stiffening Review of Systems - Physician Review All systems were reviewed & negative as marked: Yes - Review of Systems Constitutional: Normal. absent: Fevers Eyes: Normal ENT: Normal Respiratory: Normal. absent: SOB, Cough Cardiovascular: Normal. absent: Chest Pain Gastrointestinal: Normal. absent: Abdominal Pain, Diarrhea, Nausea, Vomiting Genitourinary Female: Normal. absent: Dysuria, Frequency, Hematuria, Urine Output Changes Musculoskeletal: Normal. absent: Back Pain, Neck Pain Skin: Normal. absent: Rash Neurological: Normal. absent: Headache, Dizziness Endocrine: Normal Hemo/Lymphatic: Normal Psychiatric: Other (+substance abuse) Physical Exam Vital Signs Reviewed: Yes Vital Signs Temp Pulse Resp BP Pulse Ox 12/24/16 00:52 97.5 F L 128 H 16 116/74 98 Temperature: Afebrile Blood Pressure: Normal Pulse: Tachycardic Respiratory Rate: Normal Pain Distress: None Mental Status: Positive for: Alert and Oriented X 3 - Systems Exam Head: Present: Atraumatic, Normocephalic Pupils: Present: PERRL Extroacular Muscles: Present: EOMI Conjunctiva: Present: Normal Mouth: Present: Moist Mucous Membranes Neck: Present: Normal Range of Motion Respiratory/Chest: Present: Clear to Auscultation, Good Air Exchange. No: Respiratory Distress, Accessory Muscle Use Cardiovascular: Present: Normal S1, S2, Tachycardic. No: Murmurs Abdomen: Present: Normal Bowel Sounds. No: Tenderness, Distention, Peritoneal Signs Upper Extremity: Present: Normal Inspection. No: Cyanosis, Edema Lower Extremity: Present: Normal Inspection. No: Edema Neurological: Present: GCS=15, CN II-XII Intact, Speech Normal Skin: Present: Warm, Dry, Normal Color. No: Rashes Psychiatric: Present: Alert, Oriented x 3, Normal Insight, Normal Concentration Medical Decision Making ED Course and Treatment: 12/24/16 00:52 Impression: 51 year old female brought in for substance abuse. Differential Diagnosis include but are not limited to: substance abuse Plan: -- EKG -- CXR -- Labs, alcohol level, blood cultures -- Urinalysis, urine drug screen -- Narcan -- Reassess and disposition Prior Visits: Notes and results from previous visits were reviewed. Progress Notes: Reviewed EKG, sinus tachycardia at [address]-segment elevations or depressions, no T-wave inversions, normal intervals. 12/24/16 03:09 Notified by RN, pt [email or web address] from ER. - Lab Interpretations Microbiology Results: Microbiology Results 12/24/16 01:39 Blood-Venous Blood Culture - Preliminary NO GROWTH AFTER 48 HOURS 12/24/16 01:09 Blood-Venous Blood Culture - Preliminary NO GROWTH AFTER 48 HOURS Lab Results: 12/24/16 01:39 12/24/16 01:39 Lab Results 12/24/16 01:55: Urine Opiates Screen Negative, Urine Methadone Screen Negative, Ur Barbiturates Screen Positive H, Ur Phencyclidine Scrn Negative, Ur Amphetamines Screen Negative, U Benzodiazepines Scrn Positive H, U Oth Cocaine Metabols Positive H, U Cannabinoids Screen Negative 12/24/16 01:55: Urine Color Yellow, Urine Appearance Clear, Urine pH 6.0, Ur Specific [place] <= 1.005, Urine Protein Negative, Urine Glucose (UA) Negative, Urine Ketones Negative, Urine Blood Negative, Urine Nitrate Negative, Urine Bilirubin Negative, Urine Urobilinogen 0.2, Ur Leukocyte Esterase Trace H, Urine RBC 0 - 2, Urine WBC 0 - 2, Ur Epithelial Cells 0 - 2, Urine Bacteria Rare 12/24/16 01:39: Alcohol, Quantitative < 10 12/24/16 01:39: Salicylates < 1 L, Acetaminophen < 10.0 L 12/24/16 01:39: Sodium 140, Chloride 112 H, Potassium 5.1 H, Carbon Dioxide 20 L , Anion Gap 13, BUN 27 H, Creatinine 1.0, Est GFR ( Amer) > 60, Est GFR ( Non-Af Amer) 58, Random Glucose 120 H, Calcium 8.6, Total Bilirubin 0.1 L, AST 21, ALT 31, Alkaline Phosphatase 66, Total Creatine Kinase 92, Total Protein 5.8 , Albumin 3.3, Globulin 2.5, Albumin/Globulin Ratio 1.3 12/24/16 01:39: WBC 5.2 D, RBC 3.15 L, Hgb 8.2 L, Hct 26.3 L, MCV 83.5, MCH 26.0, MCHC 31.2, RDW 16.3 H, Plt Count 202, MPV 10.1, Gran % 45.9 L, Lymph % ( Auto) 43.1 H, [place] % (Auto) 7.1 H, Eos % (Auto) 3.5, Baso % (Auto) 0.4, Gran # 2.39, Lymph # 2.2, [place] # 0.4, Eos # 0.2, Baso # 0.02 12/24/16 01:17: pCO2 36, pO2 93.0, HCO3 19.9 L, ABG pH 7.35, ABG Total CO2 21.0 L, ABG O2 Saturation 98.7 H, ABG Base Excess -5.1 L, ABG Potassium 4.9, Sodium 143.0, Chloride 117.0 H, Glucose 112 H, Lactate 0.9, FiO2 21.0, Arterial Blood Potassium 4.9 I have reviewed the lab results: Yes - RAD Interpretation Radiology Orders: 12/24/16 00:54 CHEST PORTABLE [RAD] Stat Arborist: ED Physician - EKG Interpretation Interpreted by ED Physician: Yes Type: 12 lead EKG - Medication Orders Current Medication Orders: Discontinued Medications Naloxone HCl (Narcan) 0.8 mg IVP STAT STA Stop: 12/24/16 01:00 Last Admin: 12/24/16 01:36 Dose: 0.8 mg - Scribe Statement The provider has reviewed the documentation as recorded by the Jose Antonio Brown All medical record entries made by the Jose Antonio were at my direction and personally dictated by me. I have reviewed the chart and agree that the record accurately reflects my personal performance of the history, physical exam, medical decision making, and the department course for this patient. I have also personally directed, reviewed, and agree with the discharge instructions and disposition. Disposition/Present on Arrival - Present on Arrival Any Indicators Present on Arrival: No History of DVT/PE: No History of Uncontrolled Diabetes: No Urinary Catheter: No History Surgical Site Infection Following: None - Disposition Have Diagnosis and Disposition been Completed?: Yes Diagnosis: Substance abuse Disposition: ELOPEMENT - ER ONLY Disposition Time: 03:10 Patient Problems: Current Active Problems Problem Status Onset Major depression Acute Condition: UNKNOWN
[2016-12-24] MEDS ORDERED: Naloxone 0.4 mg/ml Inj (Adult) IVP STA (00:59)
[2016-12-24 01:04] VITALS: BP 116/74; PULSE 128; RESP 16; TEMP 97.5; O2SAT 98; BMI 22.1
[2016-12-24 01:20] LABS: ARTERIAL BLOOD GAS HCO3 19.9 mmol/L (21-28); ARTERIAL BLOOD GAS PH 7.35 (7.35-7.45)
[2016-12-24 01:52] LABS: ADD MANUAL DIFF? NO
[2016-12-24 02:05] LABS: BASO # 0.02 K/mm3 (0.0-2.0); BASO % 0.4 % (0.0-3.0); EOS # 0.2 (0.0-0.7); EOS % 3.5 % (1.5-5.0); GRAN # 2.39 (1.4-6.5); GRAN % 45.9 % (50.0-68.0); HEMATOCRIT 26.3 % (36.0-48.0); LYMPH # 2.2 (1.2-3.4); LYMPH % 43.1 % (22.0-35.0); MEAN CELL VOLUME 83.5 fL (80.0-105.0); MEAN CORPUSCULAR HGB CONC 31.2 g/dl (31.0-37.0); MEAN PLATELET VOLUME 10.1 fl (7.0-11.0); MONO # 0.4 (0.1-0.6); MONO % 7.1 % (1.0-6.0); PLATELET COUNT 202 10^3/uL (120.0-450.0); RED CELL DISTRIBUTION WIDTH 16.3 % (11.5-14.5); WHITE BLOOD COUNT 5.2 10^3/ul (4.5-11.0)
[2016-12-24 02:15] LABS: ALB/GLOB RATIO 1.3 (1.1-1.8); ALKALINE PHOSPHATASE 66 U/L (38-133); ALT/SGPT 31 U/L (7-56); AST/SGOT 21 U/L (15-39); BILIRUBIN,TOTAL 0.1 mg/dL (0.2-1.3); BLOOD UREA NITROGEN 27 mg/dL (7-21); CALCIUM 8.6 mg/dL (8.4-10.5); CARBON DIOXIDE 20 mmol/L (21-33); CHLORIDE 112 mmol/L (98-107); GFR AFRICAN-AMERICAN > 60; GLUCOSE,RANDOM 120 mg/dL (70-110); POTASSIUM 5.1 mmol/L (3.6-5.0); SODIUM 140 mmol/L (132-148); TOTAL PROTEIN 5.8 g/dL (5.8-8.3)
[2016-12-24 02:36] LABS: URINE BILIRUBIN NEGATIVE (NEGATIVE); URINE BLOOD NEGATIVE (NEGATIVE); URINE GLUCOSE (UA) NEGATIVE (NEGATIVE); URINE KETONE NEGATIVE (NEGATIVE); URINE LEUKOCYTE ESTERASE TRACE Leu/uL (NEGATIVE); URINE PROTEIN NEGATIVE mg/dL (<30 mg/dL); URINE UROBILINOGEN 0.2 E.U./dL (<1 E.U./dL)
[2016-12-24 02:49] LABS: URINE APPEARANCE CLEAR (CLEAR); URINE COLOR YELLOW (YELLOW)
[2016-12-24 02:52] LABS: URINE EPITHELIAL CELLS 0 - 2 /hpf (0-5); URINE RBC 0 - 2 /hpf (0-2); URINE WBC 0 - 2 /hpf (0-6)
[2016-12-24 02:53] LABS: URINE BACTERIA RARE (NEG)
--- NOTE | 2016-12-24 08:56 | RAD ---
HISTORY: od COMPARISON: No prior. FINDINGS: LUNGS: The lungs are clear. PLEURA: No significant pleural effusion identified, no pneumothorax apparent. CARDIOVASCULAR: Normal. OSSEOUS STRUCTURES: There is an S-shaped scoliosis in the thoracolumbar spine. VISUALIZED UPPER ABDOMEN: Normal. OTHER FINDINGS: None. IMPRESSION: No acute findings.
--- NOTE | 2016-12-24 10:47 | CARD ---
APPROVED REPORT EKG Measurement Heart [id number] <Conclusion> Sinus tachycardia Prolonged QTC Rate increased c/w prior ECG 12/22/16
== END 2016-12-24 03:00 | disposition left against medical advice (07) ==
LOC: ED 00:33
DX: F19.10 Other psychoactive substance abuse, uncomplicated (principal); Z87.891 Personal history of nicotine dependence; I10 Essential (primary) hypertension; E11.9 Type 2 diabetes mellitus without complications
CPT/HCPCS: 71010; 80053; 80320; 80324; 80329; 80345; 80346; 80349; 80353; 80358; 80361; 81001; 82550; 82803; 83992; 85025; 87040; 93005; 96374; 99282; J2310

== ENCOUNTER 2016-12-25 14:11 | Inpatient (IN) | payer MEDICAID ==
[2016-12-25 14:12] VITALS: BMI 22.1
--- NOTE | 2016-12-25 14:44 | ED PDOC ---
Arrival/HPI - General Chief Complaint: Psychiatric Evaluation Time Seen by Provider: 12/25/16 14:22 Historian: Patient - History of Present Illness Narrative History of Present Illness (Text): 12/25/16 14:40 51yo female with history of polysubstance abuse, hypertension, seizure, Diabetes , GERD , anxiety, depression present to ED for psych evaluation. she reports that she feels stress, anxious and depressed. States she woke up late today and didn't take her medications. States her Psychiatrist reduced her medication dose and she feels that she needs the higher dose to help her function. States she came to ED because because she is "scared she might hurt herself". denies HI , hallucination, any somatic complaint. Past Medical History - Provider Review Nursing Documentation Reviewed: Yes - Infectious Disease Hx of Infectious Diseases: None - Tetanus Immunization Tetanus Immunization: Unknown - Past Medical History Past Medical History: No Previous - Cardiac Hx Cardiac Disorders: Yes Hx Hypertension: Yes - Pulmonary Hx Respiratory Disorders: Yes (SMOKES CIGARETTES) Hx Pneumonia: Yes Hx Tuberculosis: No - Neurological Hx Neurological Disorder: Yes (SYNCOPE) HX Cerebrovascular Accident: No - HEENT Hx HEENT Disorder: No - Renal Hx Renal Disorder: No - Endocrine/Metabolic Hx Endocrine Disorders: Yes Hx Diabetes Mellitus Type 2: Yes (Borderline) - Hematological/Oncological Hx Blood Disorders: No Hx Cancer: No - Integumentary Hx Dermatological Disorder: No - Musculoskeletal/Rheumatological Hx Musculoskeletal Disorders: Yes Hx Falls: Yes - Gastrointestinal Hx Gastrointestinal Disorders: Yes (COLITIS,GASTRIC [id number],) Other/Comment: Gastropheresis - Genitourinary/Gynecological Hx Genitourinary Disorders: No Hx Sexually Transmitted Diseases: No - Psychiatric Hx Psychophysiologic Disorder: Yes Hx Anxiety: Yes Hx Depression: Yes Hx Panic Disorder: Yes Hx Physical Abuse: No Hx Sexual Abuse: No Hx Substance Use: Yes (MULTI RX DRUG ABUSE.) Other/Comment: ETOH USE,MULTI RX DRUG ABUSE.OD - Surgical History Hx Cholecystectomy: Yes Hx Gastric Bypass Surgery: Yes (2013) - Anesthesia Hx Anesthesia: Yes Hx Anesthesia Reactions: No Hx Malignant Hyperthermia: No - Suicidal Assessment Feels Threatened In Home Enviroment: No Family/Social History - Physician Review Nursing Documentation Reviewed: Yes Family/Social History: Unknown Family HX Smoking Status: Current Some Days Smoker Hx Alcohol Use: Yes (DRINKS SOCIALLY. LAST DRANK LAST NIGHT HAVING 5 MIXED DRINKS.) Hx Substance Use: Yes (MULTI RX DRUG ABUSE.) Hx Substance Use Treatment: No Allergies/Home Meds Allergies/Adverse Reactions: Allergies Penicillins Allergy (Intermediate, Verified 12/25/16 14:34) HIVES morphine Allergy (Verified 12/25/16 14:34) ITCHING naproxen [From Naprosyn] Allergy (Verified 12/25/16 14:34) NAUSEA compazine Allergy (Intermediate, Uncoded 12/25/16 14:34) muscle stiffening Review of Systems - Physician Review All systems were reviewed & negative as marked: Yes - Review of Systems Constitutional: Normal Eyes: Normal ENT: Normal Respiratory: Normal Cardiovascular: Normal Gastrointestinal: Normal Genitourinary Female: Normal Musculoskeletal: Normal Skin: Normal Neurological: Normal Endocrine: Normal Hemo/Lymphatic: Normal Psychiatric: Anxiety, Depression Physical Exam Vital Signs Reviewed: Yes Vital Signs Temp Pulse Resp BP Pulse Ox 12/25/16 14:49 98.4 F 98 H 16 123/86 98 Temperature: Afebrile Blood Pressure: Normal Pulse: Regular Respiratory Rate: Normal Appearance: Positive for: Well-Appearing, Non-Toxic, Comfortable Pain Distress: None Mental Status: Positive for: Alert and Oriented X 3 - Systems Exam Head: Present: Atraumatic, Normocephalic Pupils: Present: PERRL Extroacular Muscles: Present: EOMI Conjunctiva: Present: Normal Mouth: Present: Moist Mucous Membranes Neck: Present: Normal Range of Motion Respiratory/Chest: Present: Clear to Auscultation, Good Air Exchange. No: Respiratory Distress, Accessory Muscle Use Cardiovascular: Present: Regular Rate and Rhythm, Normal S1, S2. No: Murmurs Abdomen: Present: Normal Bowel Sounds. No: Tenderness, Distention, Peritoneal Signs Back: Present: Normal Inspection Upper Extremity: Present: Normal Inspection. No: Cyanosis, Edema Lower Extremity: Present: Normal Inspection. No: Edema Neurological: Present: GCS=15, CN II-XII Intact, Speech Normal Skin: Present: Warm, Dry, Normal Color. No: Rashes Psychiatric: Present: Alert, Oriented x 3, Normal Insight, Normal Concentration Medical Decision Making ED Course and Treatment: 12/25/16 16:23 Pt present in ED for stress, depression and suicidal. She was hemodynamically stable and medically cleared for psych evaluation. Her lab was reviewed. Positive benzo and barbiturate was noted. Hgb was comparison to her yesterday's lab. Elevated LFT was noted, which is new. Will require f/u evaluation EKG NSR @98bpm she was seen in ED by the screener Andrew and admitted to Dr. Camacho for MDD - Lab Interpretations Lab Results: 12/25/16 16:00 12/25/16 16:00 Lab Results 12/25/16 16:00: Alcohol, Quantitative < 10 12/25/16 16:00: Salicylates 3, Acetaminophen 19.0 12/25/16 16:00: Sodium 137, Potassium 5.0, Chloride 109 H, Carbon Dioxide 22, Anion Gap 11, BUN 23 H, Creatinine 1.0, Est GFR ( Amer) > 60, Est GFR ( Non-Af Amer) 58, Random Glucose 99, Calcium 8.6, Total Bilirubin 0.3, AST 118 H , ALT 144 H, Alkaline Phosphatase 114, Total Protein 6.1, Albumin 3.4, Globulin 2.7, Albumin/Globulin Ratio 1.3 12/25/16 16:00: WBC 4.7, RBC 3.32 L, Hgb 8.7 L, Hct 27.8 L, MCV 83.7, MCH 26.2, MCHC 31.3, RDW 16.3 H, Plt Count 230, MPV 9.7, Gran % 54.4, Lymph % (Auto) 34.7 , [place] % (Auto) 6.1 H, Eos % (Auto) 4.4, Baso % (Auto) 0.4, Gran # 2.57, Lymph # 1.6, [place] # 0.3, Eos # 0.2, Baso # 0.02 12/25/16 14:55: Urine Opiates Screen Negative, Urine Methadone Screen Negative, Ur Barbiturates Screen Positive H, Ur Phencyclidine Scrn Negative, Ur Amphetamines Screen Negative, U Benzodiazepines Scrn Positive H, U Oth Cocaine Metabols Negative, U Cannabinoids Screen Negative 12/25/16 14:55: Urine Color Yellow, Urine Appearance Clear, Urine pH 6.0, Ur Specific [place] 1.020, Urine Protein Negative, Urine Glucose (UA) Negative, Urine Ketones Negative, Urine Blood Negative, Urine Nitrate Negative, Urine Bilirubin Negative, Urine Urobilinogen 0.2, Ur Leukocyte Esterase Small H, Urine RBC Negative, Urine WBC 2 - 5, Ur Epithelial Cells 10 - 12, Urine Bacteria Few 12/25/16 14:43: POC Glucose (mg/dL) 167 H - EKG Interpretation Interpreted by ED Physician: Yes (NSR @98bpm) Disposition/Present on Arrival - Present on Arrival Any Indicators Present on Arrival: No History of DVT/PE: No History of Uncontrolled Diabetes: No Urinary Catheter: No History of Decub. Ulcer: No History Surgical Site Infection Following: None - Disposition Have Diagnosis and Disposition been Completed?: Yes Diagnosis: Major depression Disposition: HOSPITALIZED Disposition Time: 16:20 Patient Problems: Current Active Problems Problem Status Onset Major depression Acute Condition: FAIR Referrals: Tarun Albert MD [Primary Care Provider] - Follow up with primary
[2016-12-25 15:06] LABS: URINE BILIRUBIN NEGATIVE (NEGATIVE); URINE BLOOD NEGATIVE (NEGATIVE); URINE GLUCOSE (UA) NEGATIVE (NEGATIVE); URINE KETONE NEGATIVE (NEGATIVE); URINE LEUKOCYTE ESTERASE SMALL Leu/uL (NEGATIVE); URINE PROTEIN NEGATIVE mg/dL (<30 mg/dL); URINE UROBILINOGEN 0.2 E.U./dL (<1 E.U./dL)
[2016-12-25 15:08] LABS: URINE COLOR YELLOW (YELLOW)
[2016-12-25 15:09] LABS: URINE APPEARANCE CLEAR (CLEAR)
[2016-12-25 15:11] LABS: URINE BACTERIA FEW (NEG); URINE RBC NEGATIVE /hpf (0-2)
[2016-12-25 16:12] LABS: ADD MANUAL DIFF? NO
[2016-12-25 16:18] LABS: BASO # 0.02 K/mm3 (0.0-2.0); BASO % 0.4 % (0.0-3.0); EOS # 0.2 (0.0-0.7); EOS % 4.4 % (1.5-5.0); GRAN # 2.57 (1.4-6.5); GRAN % 54.4 % (50.0-68.0); HEMATOCRIT 27.8 % (36.0-48.0); LYMPH # 1.6 (1.2-3.4); LYMPH % 34.7 % (22.0-35.0); MEAN CELL VOLUME 83.7 fL (80.0-105.0); MEAN CORPUSCULAR HEMOGLOBIN 26.2 pg (25.0-35.0); MEAN CORPUSCULAR HGB CONC 31.3 g/dl (31.0-37.0); MEAN PLATELET VOLUME 9.7 fl (7.0-11.0); MONO # 0.3 (0.1-0.6); MONO % 6.1 % (1.0-6.0); PLATELET COUNT 230 10^3/uL (120.0-450.0); RED CELL DISTRIBUTION WIDTH 16.3 % (11.5-14.5); WHITE BLOOD COUNT 4.7 10^3/ul (4.5-11.0)
[2016-12-25 16:26] LABS: ALB/GLOB RATIO 1.3 (1.1-1.8); ALKALINE PHOSPHATASE 114 U/L (38-133); ALT/SGPT 144 U/L (7-56); AST/SGOT 118 U/L (15-39); BILIRUBIN,TOTAL 0.3 mg/dL (0.2-1.3); BLOOD UREA NITROGEN 23 mg/dL (7-21); CALCIUM 8.6 mg/dL (8.4-10.5); CARBON DIOXIDE 22 mmol/L (21-33); CHLORIDE 109 mmol/L (98-107); GFR AFRICAN-AMERICAN > 60; GLUCOSE,RANDOM 99 mg/dL (70-110); SODIUM 137 mmol/L (132-148); TOTAL PROTEIN 6.1 g/dL (5.8-8.3)
[2016-12-25 18:15] VITALS: O2SAT 100
[2016-12-26] MEDS ORDERED: Venlafaxine 75 mg ER Cap PO SCH (08:00)
[2016-12-26 10:35] LABS: CHOLESTEROL 170 mg/dL (130-200)
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
[2016-12-26] MEDS ORDERED: Oxycodone/Acetaminophen 5/325 mg Tab PO ONE (15:32)
[2016-12-27] MEDS: Venlafaxine 75 mg ER Cap PO SCH (09:01)
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
[2016-12-27] MEDS: Apap-Butalbital-Caffeine 325-50-40mg Tab PO PRN ×3 (13:06→21:32)
[2016-12-28] MEDS: Apap-Butalbital-Caffeine 325-50-40mg Tab PO PRN ×5 (02:59→21:59)
[2016-12-28 07:41] LABS: ADD MANUAL DIFF? NO
[2016-12-28 07:47] LABS: BASO # 0.03 K/mm3 (0.0-2.0); BASO % 0.5 % (0.0-3.0); EOS # 0.2 (0.0-0.7); EOS % 3.9 % (1.5-5.0); GRAN # 2.55 (1.4-6.5); GRAN % 45.3 % (50.0-68.0); HEMATOCRIT 29.4 % (36.0-48.0); LYMPH # 2.5 (1.2-3.4); LYMPH % 43.6 % (22.0-35.0); MEAN CELL VOLUME 83.1 fL (80.0-105.0); MEAN CORPUSCULAR HEMOGLOBIN 25.7 pg (25.0-35.0); MEAN PLATELET VOLUME 9.3 fl (7.0-11.0); MONO # 0.4 (0.1-0.6); MONO % 6.7 % (1.0-6.0); PLATELET COUNT 243 10^3/uL (120.0-450.0); RED CELL DISTRIBUTION WIDTH 15.7 % (11.5-14.5); WHITE BLOOD COUNT 5.6 10^3/ul (4.5-11.0)
[2016-12-28 07:54] LABS: ALB/GLOB RATIO 1.2 (1.1-1.8); ALKALINE PHOSPHATASE 140 U/L (38-133); ALT/SGPT 145 U/L (7-56); AST/SGOT 51 U/L (15-39); BILIRUBIN,DIRECT 0.2 mg/dL (0.0-0.4); BILIRUBIN,TOTAL 0.2 mg/dL (0.2-1.3); BLOOD UREA NITROGEN 30 mg/dL (7-21); CALCIUM 9.1 mg/dL (8.4-10.5); CARBON DIOXIDE 27 mmol/L (21-33); CHLORIDE 104 mmol/L (98-107); GFR AFRICAN-AMERICAN > 60; GLUCOSE,RANDOM 96 mg/dL (70-110); POTASSIUM 4.9 mmol/L (3.6-5.0); SODIUM 138 mmol/L (132-148); TOTAL PROTEIN 6.3 g/dL (5.8-8.3)
[2016-12-28] MEDS: Pantoprazole 40 mg EC Tab PO SCH (09:19)
[2016-12-28] MEDS: Venlafaxine 75 mg ER Cap PO SCH (09:19)
[2016-12-28] MEDS ORDERED: oxyCODONE 5 mg Immediate Release Tab PO STA (13:32)
--- NOTE | 2016-12-28 14:30 | CP.PCM.PN ---
Subjective - Date & Time of Evaluation Date of Evaluation: 12/28/16 Time of Evaluation: 10:00 - Subjective Subjective: Patient seen and examined in room 514. Patient is alert, awake and oriented. Denies any chest pain. Denies any abdominal pain. Denies any nausea, vomiting. Patient is still complaining of back pain and requesting Percocet. she is getting percocet from DR. mann for back pain. Patient does not follow up with pain management Dr. frazier anymore. she used to get opiates from him for the past 10 yrs as per patient. Patient is ambulating in the hallway without any difficulty. Tolerating diet well. Review of Systems - Constitutional Constitutional: absent: Fever, Chills - EENT Eyes: absent: Blurred Vision Nose/Mouth/Throat: absent: Nasal Congestion - Cardiovascular Cardiovascular: absent: Chest Pain - Respiratory Respiratory: absent: Cough, Dyspnea, Dyspnea on Exertion - Gastrointestinal Gastrointestinal: absent: Abdominal Pain, Nausea, Vomiting - Musculoskeletal Musculoskeletal: absent: Abnormal Gait Additional comments: back pain - Psychiatric Psychiatric: absent: Anxiety, Depression - Hematologic/Lymphatic Hematologic: absent: Easy Bleeding, Easy Bruising Objective - Vital Signs/Intake and Output Vital Signs (last 24 hours): Temp Pulse Resp BP Pulse Ox 97.6 F 95 H 18 111/78 100 12/27/16 06:32 12/27/16 16:21 12/27/16 06:32 12/27/16 16:21 12/25/16 18:00 - Medications Medications: Current Medications Acetaminophen/Butalbital/Caffeine (Fioricet) 1 tab PO Q4H PRN PRN Reason: Migraine headache Last Admin: 12/28/16 10:58 Dose: 1 tab Clonazepam (Klonopin) 1 mg PO AMHS RADHA PRN Reason: Protocol Last Admin: 12/28/16 09:20 Dose: 1 mg Gabapentin (Neurontin) 100 mg PO TID RADHA PRN Reason: Protocol Last Admin: 12/28/16 09:19 Dose: 100 mg Hydroxyzine Pamoate (Vistaril) 50 mg PO Q8 PRN; Protocol PRN Reason: Insomnia Last Admin: 12/28/16 09:19 Dose: 50 mg Levetiracetam (Keppra) 500 mg PO BID RADHA Last Admin: 12/28/16 09:20 Dose: 500 mg Mirtazapine (Remeron) 45 mg PO HS PRN PRN Reason: Insomnia Last Admin: 12/27/16 21:30 Dose: 45 mg Pantoprazole Sodium (Protonix Ec Tab) 40 mg PO 0630 [facility] Last Admin: 12/28/16 09:19 Dose: 40 mg Quetiapine Fumarate (Seroquel) 300 mg PO HS [facility] Last Admin: 12/27/16 21:31 Dose: 300 mg Venlafaxine HCl (Effexor Xr) 225 mg PO DAILY [facility] Last Admin: 12/28/16 09:19 Dose: 225 mg - Labs Labs: 12/28/16 07:00 12/28/16 07:00 - Constitutional Appears: Well, Non-toxic - Head Exam Head Exam: NORMAL INSPECTION - Eye Exam Eye Exam: Normal appearance Pupil Exam: NORMAL ACCOMODATION - ENT Exam ENT Exam: Mucous Membranes Moist - Respiratory Exam Respiratory Exam: NORMAL BREATHING PATTERN - Cardiovascular Exam Cardiovascular Exam: REGULAR RHYTHM - GI/Abdominal Exam GI & Abdominal Exam: Soft, Normal Bowel Sounds. absent: Tenderness - Back Exam Back Exam: absent: CVA tenderness (L), CVA tenderness (R) - Neurological Exam Neurological Exam: Alert - Psychiatric Exam Psychiatric exam: Normal Affect - Skin Skin Exam: Normal Color Assessment and Plan - Assessment and Plan (Free Text) Assessment: 1. Patient is a 51-year-old female admitted in the psychiatric floor for anxiety depression. Adjust medication per psychiatrist. 2. Chronic opiate abuse; patient got prescription for Percocet 5/[address] Maldonado Mann on 12/25/16. Patient used to follow up with pain management Dr. Frazier. According to the patient she got Percocet prescription from Dr. Frazier for the past 10 years. Currently she is not following up with pain management. Advised to follow-up with pain management of choice as outpatient. Risks of opiates abuse explained to the patient in detail. 3. Elevated LFTs; improving slowly. Advised to avoid Tylenol, alcohol and other hepatotoxic drugs. Follow-up LFTs as outpatient. Hepatitis profile is negative. RPR is negative. 4. History of polysubstance abuse including opiates, benzos and cocaine in the past. Advised to stop drug abuse. 5. Hypothyroidism; currently not taking any medications. Patient used to take Synthroid before. Started on by mouth Synthroid 25 g. 6. Seizure disorder; continue Keppra. 7. GI prophylaxis with Protonix. 8. Triglyceridemia; dietitian evaluation requested. Follow-up fasting lipid profile as outpatient. Patient is advised to follow-up with PMD Dr.perez Mccann. Patient needs close psychiatric follow-up. No acute medical issues at this time. Please reconsult as needed.
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
[2016-12-29] MEDS: Apap-Butalbital-Caffeine 325-50-40mg Tab PO PRN ×4 (06:56→20:42)
[2016-12-29 08:53] LABS: T3 0.89 ng/mL (0.97-1.69); THYROID STIMULATING HORMONE 1.3 mIU/mL (0.46-4.68)
[2016-12-29] MEDS: Levothyroxine 25 MCG TAB PO SCH (09:14)
[2016-12-29] MEDS: Venlafaxine 75 mg ER Cap PO SCH (09:15)
[2016-12-29] MEDS: Pantoprazole 40 mg EC Tab PO SCH (09:15)
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
[2016-12-29] MEDS: Divalproex 500 mg DR(BID formulation) PO SCH (16:01)
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
[2016-12-29] MEDS: QUEtiapine 200 mg XR Tab PO SCH (21:07)
[2016-12-30] MEDS: Apap-Butalbital-Caffeine 325-50-40mg Tab PO PRN ×2 (06:17→13:02)
[2016-12-30] MEDS: Pantoprazole 40 mg EC Tab PO SCH (08:27)
[2016-12-30] MEDS: Venlafaxine 75 mg ER Cap PO SCH (08:27)
[2016-12-30] MEDS: Levothyroxine 25 MCG TAB PO SCH (08:28)
[2016-12-30] MEDS: Divalproex 500 mg DR(BID formulation) PO SCH ×2 (08:28→16:04)
[2016-12-30] MEDS: Lidocaine 5% Patch TD SCH (13:00)
[2016-12-30] MEDS ORDERED: Apap-Butalbital-Caffeine 325-50-40mg Tab PO PRN (14:01)
--- NOTE | 2016-12-30 15:04 | RAD ---
PROCEDURE: Radiographs of the Sacrum and Coccyx HISTORY: fall, r/o fracture COMPARISON: None available. TECHNIQUE: Frontal and lateral views of the sacrum and coccyx FINDINGS: BONES: Sacrum and coccyx unremarkable. No gross fracture or focal lesion. 5 mm calcification or right sacrum -phleboliths most likely SACROILIAC JOINTS: Bilateral inferior sacroiliac sclerotic arthrosis. Pubic symphyseal sclerotic arthrosis OTHER FINDINGS: Lateral view is slightly oblique. Frontal view of shows lumbar spine in towards the left IMPRESSION: No gross fracture seen. 

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
--- NOTE | 2016-12-30 15:09 | RAD ---
PROCEDURE: HISTORY: fall, r/o fracture COMPARISON: CT abdomen and pelvis 09/26/2016 TECHNIQUE: Five views FINDINGS: The lumbar vertebral body heights are maintained L2-3 disc space narrowing with mild endplate spondylosis present lesser degrees of the disc space narrowing lumbar level are also suggested. Scoliosis present The superior T12 moderate concavity similar to the sagittal reformations 09/26/2016 series 602, image 81 a prominent Schmorl's node indentation or a subacute to chronic mild compression deformity here are differential considerations. Vertebral body changes to suggest interval vertebral body compression fractures compared with the sagittal 09/26/2016 study is noted IMPRESSION: Superior T12 convexity consistent with both a prominent Schmorl's node indentation or a mild compression deformity. Mild sclerotic changes can note an element of subacute to chronic chronicity. This morphology is stable with the sagittal reformations from the CT dated 09/26/2016. No interval lumbar compression fractures appreciated Mild degenerative changes most pronounced at the L2-3 level. Scoliosis as before
[2016-12-30] MEDS: Apap-Butalbital-Caffeine 325-50-40mg Tab PO SCH (17:56)
[2016-12-30] MEDS: QUEtiapine 200 mg XR Tab PO SCH (21:23)
[2016-12-31] MEDS: Levothyroxine 25 MCG TAB PO SCH (08:12)
[2016-12-31] MEDS: Venlafaxine 75 mg ER Cap PO SCH (08:13)
[2016-12-31] MEDS: Apap-Butalbital-Caffeine 325-50-40mg Tab PO SCH ×3 (08:13→17:44)
[2016-12-31] MEDS: Divalproex 500 mg DR(BID formulation) PO SCH ×2 (08:14→15:51)
[2016-12-31] MEDS: Pantoprazole 40 mg EC Tab PO SCH (08:16)
[2016-12-31] MEDS: Lidocaine 5% Patch TD SCH (08:19)
[2016-12-31 08:29] LABS: ALB/GLOB RATIO 1.2 (1.1-1.8); ALKALINE PHOSPHATASE 116 U/L (38-133); ALT/SGPT 92 U/L (7-56); AST/SGOT 24 U/L (15-39); BILIRUBIN,TOTAL 0.4 mg/dL (0.2-1.3); BLOOD UREA NITROGEN 25 mg/dL (7-21); CALCIUM 9.4 mg/dL (8.4-10.5); CARBON DIOXIDE 30 mmol/L (21-33); CHLORIDE 104 mmol/L (98-107); GFR AFRICAN-AMERICAN > 60; GLUCOSE,RANDOM 103 mg/dL (70-110); POTASSIUM 4.8 mmol/L (3.6-5.0); SODIUM 142 mmol/L (132-148); TOTAL PROTEIN 6.9 g/dL (5.8-8.3)
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
[2017-01-01] MEDS: QUEtiapine 200 mg XR Tab PO SCH ×2 (00:23→21:06)
[2017-01-01] MEDS: Levothyroxine 25 MCG TAB PO SCH (07:42)
[2017-01-01] MEDS: Venlafaxine 75 mg ER Cap PO SCH (07:42)
[2017-01-01] MEDS: Apap-Butalbital-Caffeine 325-50-40mg Tab PO SCH ×2 (07:45→13:12)
[2017-01-01] MEDS: Pantoprazole 40 mg EC Tab PO SCH (07:45)
[2017-01-01] MEDS: Divalproex 500 mg DR(BID formulation) PO SCH (10:41)
[2017-01-01] MEDS: Lidocaine 5% Patch TD SCH (10:42)
--- NOTE | 2017-01-01 11:04 | CON ---
DATE: 01/01/2017 A 51-year-old female in room 514, bed 1, seen for chronic lumbar spine pain with paresthesias to the lower extremities and ____ reflexes are difficult to obtain because there is tightness, but x-rays sh ow multiple level degenerative disk disease with decreased joint space of the L2, 3 and 4 and mild s coliosis. I am going to encourage extensive physical therapy to regain her strength. She has tight hamstrings and a weak spinae erector muscles, so the therapy will be called for to do hamstring exerc ises and stretching and back stabilizing exercises, and to avoid narcotic at all costs, and to contin ue encouraging to strengthen her back and not to let her muscles get weak, and she has to do stretchi ng exercises including pelvic tilt and hamstring exercises and paralumbar strengthening exercises. N o narcotics are needed, and she does not need surgery at this time. DIAGNOSES: Degenerative disk disease and mild radiculopathy of the lower extremities. Blair Pickett DO cc: [id number] TT: 01/01/2017 11:04:07 Confirmation # [id number] Dictation # [id number] jerrod
--- NOTE | 2017-01-01 11:08 | CON ---
DATE: 01/01/2017 ADDENDUM The patient is in room 514, bed 1. I overlooked to say that she also complains of right distal radius pain. Has a past history of an ol d fracture of her right distal radius treated with closed reduction and casting. She does have a roxi ciro prominence of her distal radius, some dorsal angulation, but appears to have good function of her fingers and wrist actually. I told her I would x-ray the wrist and see if there is anything that ne eds to be done but, as long as she has a functional wrist at this age of 51, I would probably not do surgery. But we will get an x-ray and reevaluate her after the right wrist is x-rayed to see if we c an improve on her mild deformity, but no surgery should be done if it is going to decrease her functi on. I will explain that to her once I see the x-rays. FINAL DIAGNOSIS: Distal radius deformity from previous fracture with dorsal angulation about 20 degr ees. Blair Pickett DO cc: [id number] TT: 01/01/2017 11:07:33 Confirmation # [id number] Dictation # [id number] jerrod
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
[2017-01-01] MEDS: Apap-Butalbital-Caffeine 325-50-40mg Tab PO PRN (17:50)
[2017-01-01] MEDS: Divalproex 500 mg ER (ONCE DAILY formulation) PO SCH (21:05)
[2017-01-01] MEDS: Divalproex 250 mg ER (ONCE DAILY formulation) PO SCH (21:06)
[2017-01-01] MEDS ORDERED: Divalproex 500 mg DR(BID formulation) PO SCH (22:00)
[2017-01-02] MEDS: Apap-Butalbital-Caffeine 325-50-40mg Tab PO PRN ×2 (01:25→11:21)
[2017-01-02] MEDS ORDERED: Divalproex 500 mg DR(BID formulation) PO SCH (08:00)
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
[2017-01-02] MEDS: Pantoprazole 40 mg EC Tab PO SCH (09:10)
[2017-01-02] MEDS: Levothyroxine 25 MCG TAB PO SCH (09:11)
[2017-01-02] MEDS: Venlafaxine 75 mg ER Cap PO SCH (09:11)
[2017-01-02] MEDS: Divalproex 500 mg ER (ONCE DAILY formulation) PO SCH ×2 (09:13→21:24)
[2017-01-02] MEDS: Lidocaine 5% Patch TD SCH (13:50)
[2017-01-02] MEDS: QUEtiapine 200 mg XR Tab PO SCH (21:23)
[2017-01-02] MEDS: Divalproex 250 mg ER (ONCE DAILY formulation) PO SCH (21:23)
[2017-01-03] MEDS: Apap-Butalbital-Caffeine 325-50-40mg Tab PO PRN ×3 (00:10→19:52)
--- NOTE | 2017-01-03 08:36 | PCM.PYCHPN ---
Psychiatric Progress Note - Psychiatric Progress Note Patient seen today, length of contact: 25 minutes Patient Chief Complaint: depressed and anxious Problems Identified/Issues Discussed: I reviewed recent notes and patient was interviewed at bedside. Patient was quite labile and manipulative on Wednesday, throwing multiple tantrums on the unit when she was not provided controlled substances. Multiple patients had also complained about her behavior. Patient presents as fairly calm and superficially cooperative during questioning today. She reports that her mood is depressed and anxious. Patient dreamed about her father who has been for over 14 years. Today is Father's Day and she feels more melancholy. She has good memories of her time with him and she values these memories very much. Patient continues to be preoccupied with obtaining klonopon "not fair that I can 't get Klonopin" for her reported anxiety. Again, patient doesn't appear overly anxious during my visit today but still remains labile and brittle as well as edgy---though a little less so than yesterday. She also does not appear to be in any physical distress Patient denies having any hallucinations at this time. Indicated that she heard voices on Wednesday telling her to "to do things, to break stuff, to act out ". Her thought process is coherent and responses are relevant to questioning. She does not appear to be responding to internal stimuli. Patient denies any side effects from her medications at this time. There were no behavioral issues overnight however she remains unpredictable Diagnostic Results: rule out major depressive disorder r/o bipolar spectrum disorder r/o ADIS r/o PTSD r/o mood disorder and anxiety disorder due [place] [facility] r/o addiction to pain meds and benzodiazepines Medication Change: No ( ) Medical Record Reviewed: Yes (reports, labs, vitals, notes) Mental Status Examination - Cognitive Function Orientation: Person, Place, Situation, Time Memory: Intact Attention: Poor Concentration: Poor Association: WNL Fund of Knowledge: WNL - Mood Mood: Depressed ("I am all over the place"), Anxious - Affect Affect: Other (labile) - Speech Speech: Appropriate - Formal Thought Process Formal Thought Process: Paranoia (less) - Suicidal Ideation Suicidal Ideation: No - Homicidal Ideation Homicidal Ideation: No Goal/Treatment Plan - Goal/Treatment Plan Need for Continued Stay: Remain at risks for inpatient hospitalization, Severe depression anxiety, Discharge may exacerbated symptoms, Failed transitioning, Severe functional impairment Progress Toward Problem(s) and Goals/Treatment Plan: * c/w current tx and plan * No new weekend labs * Vitals reviewed and noted below: Selected Entries 01/03/17 07:46 Temperature 98.0 F Pulse Rate 87 Respiratory 20 Rate Blood Pressure 112/73 Estimated Date of D/C: 01/07/17 (we'll monitor closely)
[2017-01-03] MEDS: Levothyroxine 25 MCG TAB PO SCH (08:52)
[2017-01-03] MEDS: Divalproex 500 mg ER (ONCE DAILY formulation) PO SCH ×2 (08:54→21:07)
[2017-01-03] MEDS: Venlafaxine 75 mg ER Cap PO SCH (08:55)
[2017-01-03] MEDS: Lidocaine 5% Patch TD SCH (08:58)
[2017-01-03] MEDS: Divalproex 250 mg ER (ONCE DAILY formulation) PO SCH (21:07)
[2017-01-03] MEDS: QUEtiapine 200 mg XR Tab PO SCH (21:08)
[2017-01-04] MEDS: Levothyroxine 25 MCG TAB PO SCH (07:06)
[2017-01-04] MEDS: Pantoprazole 40 mg EC Tab PO SCH ×2 (07:07→08:12)
[2017-01-04] MEDS: Apap-Butalbital-Caffeine 325-50-40mg Tab PO PRN ×2 (07:07→16:11)
[2017-01-04] MEDS: Divalproex 500 mg ER (ONCE DAILY formulation) PO SCH ×2 (08:09→21:08)
[2017-01-04] MEDS: Venlafaxine 75 mg ER Cap PO SCH (08:10)
[2017-01-04] MEDS: Lidocaine 5% Patch TD SCH (08:10)
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
[2017-01-04] MEDS: QUEtiapine 200 mg XR Tab PO SCH (21:07)
[2017-01-04] MEDS: Divalproex 250 mg ER (ONCE DAILY formulation) PO SCH (21:08)
[2017-01-05 08:08] VITALS: BP 136/78; PULSE 94; RESP 16; TEMP 98.7
[2017-01-05] MEDS ORDERED: Benzocaine/Menthol (Cepacol) Lozenge MT PRN (08:39)
[2017-01-05] MEDS: Levothyroxine 25 MCG TAB PO SCH (08:44)
[2017-01-05] MEDS: Venlafaxine 75 mg ER Cap PO SCH (08:44)
[2017-01-05] MEDS: Pantoprazole 40 mg EC Tab PO SCH (08:45)
[2017-01-05] MEDS: Divalproex 500 mg ER (ONCE DAILY formulation) PO SCH (08:45)
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
== END 2017-01-05 14:34 | disposition home or self-care (01) | DRG 426 ==
LOC: ED 14:11 → ERH 16:28 → PSYC 19:09
PROVIDERS: ADMIT Psychiatry & Neurology Psychiatry; ATTEND Psychiatry & Neurology Psychiatry
DX: F32.9 Major depressive disorder, single episode, unspecified (principal); F13.10 Sedative, hypnotic or anxiolytic abuse, uncomplicated; F06.30 Mood disorder due to known physiological condition, unspecified; F06.4 Anxiety disorder due to known physiological condition; F13.14 Sedative, hypnotic or anxiolytic abuse with sedative, hypnotic or anxiolytic-induced mood disorder; E11.43 Type 2 diabetes mellitus with diabetic autonomic (poly)neuropathy; K31.84 Gastroparesis; F11.10 Opioid abuse, uncomplicated; G40.909 Epilepsy, unspecified, not intractable, without status epilepticus; G43.909 Migraine, unspecified, not intractable, without status migrainosus; D64.9 Anemia, unspecified; F17.210 Nicotine dependence, cigarettes, uncomplicated; M51.16 Intervertebral disc disorders with radiculopathy, lumbar region; M21.931 Unspecified acquired deformity of right forearm; E03.9 Hypothyroidism, unspecified; Z88.0 Allergy status to penicillin

== ENCOUNTER 2017-01-12 00:31 | Emergency (ER) | payer MEDICAID ==
[2017-01-12 00:57] VITALS: BMI 223.3
[2017-01-12 01:01] VITALS: TEMP 98.1
[2017-01-12] MEDS ORDERED: Naloxone 0.4 mg/ml Inj (Adult) IM STA (01:01)
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
[2017-01-12 02:26] VITALS: RESP 17
[2017-01-12 03:37] VITALS: BP 124/80; PULSE 97; O2SAT 96
== END 2017-01-12 03:40 | disposition home or self-care (01) ==
LOC: ED 00:31
DX: F11.10 Opioid abuse, uncomplicated (principal); I10 Essential (primary) hypertension; E11.9 Type 2 diabetes mellitus without complications
CPT/HCPCS: 96372; 99284; J2310

== ENCOUNTER 2017-01-12 12:37 | Emergency (ER) | payer MEDICAID ==
[2017-01-12 12:37] VITALS: BMI 223.3
[2017-01-12 13:12] VITALS: BP 132/69; PULSE 105; RESP 16; TEMP 98.8; O2SAT 96
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
--- NOTE | 2017-01-12 22:05 | CARD ---
APPROVED REPORT EKG Measurement Heart [id number] <Conclusion> Normal sinus rhythm Normal ECG
== END 2017-01-12 15:03 | disposition home or self-care (01) ==
LOC: ED 12:37
DX: R44.0 Auditory hallucinations (principal)

== ENCOUNTER 2017-02-13 17:16 | Emergency (ER) | payer MEDICAID ==
[2017-02-13 17:17] VITALS: BMI 223.3
[2017-02-13 17:26] VITALS: TEMP 98.4; O2SAT 97
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
[2017-02-13 18:49] LABS: BASO # 0.01 K/mm3 (0.0-2.0); BASO % 0.2 % (0.0-3.0); EOS # 0.2 (0.0-0.7); EOS % 3.6 % (1.5-5.0); GRAN # 1.99 (1.4-6.5); GRAN % 47.7 % (50.0-68.0); HEMOGLOBIN 9.9 gm/dL (12.0-16.0); LYMPH # 1.6 (1.2-3.4); MEAN CELL VOLUME 77.8 fL (80.0-105.0); MEAN CORPUSCULAR HEMOGLOBIN 24.9 pg (25.0-35.0); MEAN PLATELET VOLUME 9.5 fl (7.0-11.0); MONO # 0.4 (0.1-0.6); MONO % 10.5 % (1.0-6.0); PLATELET COUNT 233 10^3/uL (120.0-450.0); RBC 3.97 10^6/uL (3.5-6.1); RED CELL DISTRIBUTION WIDTH 15.5 % (11.5-14.5); WHITE BLOOD COUNT 4.2 10^3/ul (4.5-11.0)
[2017-02-13 18:58] LABS: ALB/GLOB RATIO 1.3 (1.1-1.8); ALBUMIN 3.8 g/dL (3.0-4.8); ALT/SGPT 28 U/L (7-56); AST/SGOT 25 U/L (15-39); BLOOD UREA NITROGEN 37 mg/dL (7-21); CALCIUM 9.2 mg/dL (8.4-10.5); GFR AFRICAN-AMERICAN > 60; GFR NON-AFRICAN AMERICAN 58
--- NOTE | 2017-02-13 19:36 | CT ---
EXAM: CT Head Without Intravenous Contrast CLINICAL HISTORY: 51 years old, female; Injury or trauma; Fall; Initial encounter; Sprain or strain; Additional info: Fall hit head TECHNIQUE: Axial computed tomography images of the head/brain without intravenous contrast. This CT exam was performed using one or more of the following dose reduction techniques: automated exposure control, adjustment of the mA and/or kV according to patient size, and/or use of iterative reconstruction technique. EXAM DATE/TIME: 02/13/2017 5:46 PM COMPARISON: CT - HEAD W/O CONTRAST 12/22/2016 11:09:50 AM FINDINGS: Brain: Ventricles are normal in size and configuration. There is no midline shift. There is prominence of extra-axial spaces. There is mild prominence of sulci and gyri. There are no intra-axial or extra-axial mass lesions or areas of hemorrhage. There are no abnormal fluid collections. [place]-white differentiation is maintained. Ventricles: See above. Bones/joints: Bones: Cranial vault is intact. Soft tissues: unremarkable Sinuses: There is no acute sinusitis. Mastoid air cells: Ears and mastoids: Middle ears and mastoids are unremarkable Orbits: Orbital contents are unremarkable. IMPRESSION: No acute intracranial abnormality
[2017-02-13 20:23] LABS: PH,URINE 6.5 (4.7-8.0); URINE BILIRUBIN NEGATIVE (NEGATIVE); URINE BLOOD NEGATIVE (NEGATIVE); URINE GLUCOSE (UA) NEGATIVE (NEGATIVE); URINE LEUKOCYTE ESTERASE NEGATIVE Leu/uL (NEGATIVE); URINE NITRATE NEGATIVE (NEGATIVE); URINE PROTEIN NEGATIVE mg/dL (<30 mg/dL); URINE UROBILINOGEN 0.2 E.U./dL (<1 E.U./dL)
[2017-02-13 20:27] LABS: URINE APPEARANCE CLEAR (CLEAR); URINE COLOR YELLOW (YELLOW)
[2017-02-13 20:28] LABS: HCG,QUALITATIVE URINE NEGATIVE (NEGATIVE)
[2017-02-13 20:38] LABS: BARBITURATES, UR POSITIVE (NEGATIVE); BENZODIAZEPINES, UR NEGATIVE (NEGATIVE); OPIATES, UR NEGATIVE (NEGATIVE); PHENCYCLIDINE, UR NEGATIVE (NEGATIVE)
[2017-02-13 20:54] VITALS: RESP 16
[2017-02-14 00:05] VITALS: BP 120/76; PULSE 69
--- NOTE | 2017-02-14 11:38 | RAD ---
PROCEDURE: CHEST RADIOGRAPH, 1 VIEW HISTORY: syncope COMPARISON: Portable chest radiograph 12/24/2016 FINDINGS: LUNGS: Clear. PLEURA: No pneumothorax or pleural fluid seen. CARDIOVASCULAR: Normal. OSSEOUS STRUCTURES: Dextroscoliotic thoracic spinal deformity again appreciated. VISUALIZED UPPER ABDOMEN: Normal. OTHER FINDINGS: None. IMPRESSION: No acute cardiopulmonary disease in the interval.
--- NOTE | 2017-02-14 13:58 | CARD ---
APPROVED REPORT EKG Measurement Heart [id number] <Conclusion> Normal sinus rhythm Normal ECG
== END 2017-02-14 00:05 | disposition home or self-care (01) ==
LOC: ED 17:16
DX: R55 Syncope and collapse (principal); I10 Essential (primary) hypertension; Z87.891 Personal history of nicotine dependence

== ENCOUNTER 2017-02-18 17:43 | Inpatient (IN) | payer MEDICAID ==
[2017-02-18 17:43] VITALS: BMI 223.3
[2017-02-18 18:24] VITALS: O2SAT 98
--- NOTE | 2017-02-18 18:55 | RAD ---
HISTORY: psych eval COMPARISON: Chest x-ray performed 02/13/17 TECHNIQUE: Chest, one view. FINDINGS: Examination limited by habitus. LUNGS: No focal consolidation. Please note that chest x-ray has limited sensitivity for the detection of pulmonary masses. PLEURA: No significant pleural effusion identified. No definite pneumothorax . CARDIOVASCULAR: Heart size appears within normal limits. OSSEOUS STRUCTURES: Scoliosis, convex to the right. VISUALIZED UPPER ABDOMEN: Unremarkable. OTHER FINDINGS: None. IMPRESSION: No focal consolidation, significant pleural effusion, or definite pneumothorax identified.
[2017-02-18 18:57] LABS: URINE BILIRUBIN SMALL (NEGATIVE); URINE BLOOD TRACE-INTACT (NEGATIVE); URINE GLUCOSE (UA) NEGATIVE (NEGATIVE); URINE LEUKOCYTE ESTERASE MODERATE Leu/uL (NEGATIVE); URINE NITRATE NEGATIVE (NEGATIVE); URINE PROTEIN TRACE mg/dL (<30 mg/dL); URINE UROBILINOGEN 0.2 E.U./dL (<1 E.U./dL)
[2017-02-18 18:57] LABS: BASO # 0.01 K/mm3 (0.0-2.0); BASO % 0.1 % (0.0-3.0); EOS % 0.3 % (1.5-5.0); GRAN # 6.41 (1.4-6.5); GRAN % 86.9 % (50.0-68.0); HEMOGLOBIN 10.3 gm/dL (12.0-16.0); LYMPH # 0.5 (1.2-3.4); LYMPH % 6.9 % (22.0-35.0); MEAN CELL VOLUME 79.6 fL (80.0-105.0); MEAN CORPUSCULAR HEMOGLOBIN 25.4 pg (25.0-35.0); MEAN CORPUSCULAR HGB CONC 31.9 g/dl (31.0-37.0); MEAN PLATELET VOLUME 9.6 fl (7.0-11.0); MONO # 0.4 (0.1-0.6); MONO % 5.8 % (1.0-6.0); PLATELET COUNT 194 10^3/uL (120.0-450.0); RBC 4.06 10^6/uL (3.5-6.1); RED CELL DISTRIBUTION WIDTH 15.9 % (11.5-14.5); WHITE BLOOD COUNT 7.4 10^3/ul (4.5-11.0)
[2017-02-18 18:59] LABS: URINE APPEARANCE SL CLOUDY (CLEAR); URINE COLOR DARK YELLOW (YELLOW)
[2017-02-18 19:06] LABS: ALB/GLOB RATIO 1.3 (1.1-1.8); ALBUMIN 3.8 g/dL (3.0-4.8); CALCIUM 8.9 mg/dL (8.4-10.5)
[2017-02-18 19:09] LABS: URINE RBC 0 - 2 /hpf (0-2)
[2017-02-18 19:10] LABS: BARBITURATES, UR POSITIVE (NEGATIVE); BENZODIAZEPINES, UR NEGATIVE (NEGATIVE); OPIATES, UR NEGATIVE (NEGATIVE); PHENCYCLIDINE, UR NEGATIVE (NEGATIVE); URINE BACTERIA MOD (NEG)
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
[2017-02-18] MEDS ORDERED: Alum-Mag Hydrox-Simethicone Susp (30 mL) PO PRN (22:29)
[2017-02-18] MEDS ORDERED: Magnesium Hydroxide Susp 30 ml UD PO PRN (22:29)
[2017-02-18] MEDS: Apap-Butalbital-Caffeine 325-50-40mg Tab PO PRN (22:47)
--- NOTE | 2017-02-18 23:37 | PCM.BM ---
<Paul Rodriguez - Last Filed: 02/18/17 23:35> Treatment Plan Problems - Problems identified on initial assessmt Anxiety Date Initiated: 02/18/17 Time Initiated: 23:35 Assessment reference: NA Status: Active Priority: 1 Altered Sleep Patterns Date Initiated: 02/18/17 Time Initiated: 23:35 Assessment reference: NA Priority: 2 Treatment assets and liabiliti Patient Assests: cooperative, insightful, self-reliant, ADL independent, physically healthy, good support system, negotiates basic needs, cognitively intact, good interpersonal skills Patient Liabilities: financial problems, relationship conflicts, substance abuse - Milieu Protocol Maintain good personal hygiene: every shift Encourage regular showers, every shift Remind patient to perform daily oral care, every shift Assist patient to perform ADL's Maintain personal safety: every shift Educate patient to report safety concerns to staff, every shift Monitor environment for contraband/sharps Medication safety: Monitor for expected outcome, potential side effects: every shift, Assess barriers to learning: every shift, Assess readiness for medication education: every shift Family Contact - Goals for Treatment Patient goals for treatment: "I want to fix myself so I never have to come back " Discharge/Continuing Care - Education Needs Education Needs: Patient Medication, Patient Diagnosis/Disease Process, Patient Coping Skills, Patient Pain - Discharge Discharge Criteria: Tolerates medication w/o severe side effects, Free of Suicidal thoughts, Normal sleep pattern <Janice Guerra - Last Filed: 02/19/17 15:01> - Diagnosis (1) Borderline personality disorder in adult Status: Acute Interventions: 02/19/17 15:02 Psychoeducation Psychopharmacology/adjustment of medications as needed/ monitoring possible side effects Evaluate pt on daily basis Compliance with medications and follow up appointments Suicide and homicide risk assessment and prevention, coping strategies, safety plan Relapse prevention Family intervention As outpatient: Transference-focused psychotherapy/dialectical behavioral therapy /schema therapy Mindfulness skills (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 Interventions: 02/19/17 15:02 Psychoeducation Psychopharmacology/adjustment of medications as needed/ monitoring possible side effects Evaluate pt on daily basis Compliance with medications and follow up appointments Suicide and homicide risk assessment and prevention, coping strategies, safety plan Reduction of symptoms Relaxation techniques and breathing exercises Improve functional status Family intervention As outpatient: cognitive behavioral therapy (3) Major depression Status: Chronic Interventions: 02/19/17 15:03 Psychoeducation Psychopharmacology/adjustment of medications as needed/ monitoring possible side effects Evaluate pt on daily basis Compliance with medications and follow up appointments Suicide and homicide risk assessment and prevention Relapse prevention Reduction of symptoms Improve functional status Family intervention As outpatient: cognitive behavioral therapy/interpersonal psychotherapy/ psychodynamic psychotherapy/problem-solving therapy (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 Interventions: 02/19/17 15:03 Psychoeducation Psychopharmacology/adjustment of medications as needed/ monitoring possible side effects Evaluate pt on daily basis Compliance with medications and follow up appointments Suicide and homicide risk assessment and prevention Relapse prevention Reduction of symptoms Improve functional status Family intervention As outpatient: cognitive behavioral therapy/interpersonal psychotherapy/ psychodynamic psychotherapy/problem-solving therapy (5) Sedative, hypnotic, or anxiolytic abuse, daily use Status: Chronic Interventions: 02/19/17 15:03 Monitoring withdrawal symptoms Medical detoxification Pharmacotherapy for alcohol/benzos/opioid dependence Maintaining sobriety Relapse prevention Possible rehabilitation Motivational interviewing 12-step programs: AA meetings (6) Alcohol abuse Status: Acute Interventions: 02/19/17 15:04 Monitoring withdrawal symptoms Medical detoxification Pharmacotherapy for alcohol/benzos/opioid dependence Maintaining sobriety Relapse prevention Possible rehabilitation Motivational interviewing 12-step programs: AA meetings <Laura Clemente Y - Last Filed: 02/19/17 17:34> Family Contact Family involvement: Family/SO is involved Family contact: Patient declines to allow family contact at present Family contact name: Braulio Burdengustavo(brother) Family contacted how many times per week?: 2
[2017-02-19] MEDS: Apap-Butalbital-Caffeine 325-50-40mg Tab PO PRN ×2 (06:49→15:22)
[2017-02-19] MEDS: Divalproex 500 mg DR(BID formulation) PO SCH ×2 (08:17→16:12)
--- NOTE | 2017-02-19 09:47 | CARD ---
APPROVED REPORT EKG Measurement Heart [id number] NC [id number] <Conclusion> Sinus tachycardia Nonspecific T wave abnormality, new
[2017-02-19] MEDS: Pantoprazole 40 mg EC Tab PO SCH (13:27)
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
--- NOTE | 2017-02-19 18:12 | CP.PCM.CON ---
<Wayne Hardy - Last Filed: 02/19/17 17:55> History of Present Illness - History of Present Illness History of Present Illness: Patient is a 51 year old female with past medical history of chronic substance abuse, migraines, seizures, and anemia who was admitted to the psych unit after presenting to the emergency department claiming she had consumed a large amount of alcohol and in turn was wanting to hurt herself. At the time of admission she denies suicidal and homicidal ideation. Patient reports soreness of her throat without sick contacts, cough, or fever. She denies taking any medication for her symptoms. She denies chest pain, shortness of breath, diarrhea, leg swelling. She denies any hallucinations, elevated heart rate, tremors or agitation. PMH: substance abuse, anemia, migraines, seizures, anxiety, pancreatitis PSH: Billroth procedure Social Hx: Lives at home with family, admits to alcohol, denies drug use Allergies: PCN, Compazine, Morphine, Naproxen Medications: See MAR Review of Systems - Constitutional Constitutional: Fatigue, Headache - Cardiovascular Cardiovascular: As Per HPI - Respiratory Respiratory: As Per HPI - Gastrointestinal Gastrointestinal: As Per HPI - Musculoskeletal Musculoskeletal: As Per HPI - Neurological Neurological: Headaches. absent: Abnormal Gait, Focal Weakness, Weakness - Psychiatric Psychiatric: Anxiety, Depression. absent: Auditory Hallucinations, Hallucinations, Homicidal Ideation, Suicidal Ideation, Visual Hallucinations Past Patient History - Infectious Disease Hx of Infectious Diseases: None - Tetanus Immunizations Tetanus Immunization: Unknown - Past Medical History & Family History Past Medical History?: Yes - Past Social History Smoking Status: Former Smoker - CARDIAC Hx Cardiac Disorders: Yes Hx Hypertension: Yes - PULMONARY Hx Respiratory Disorders: Yes (SMOKES CIGARETTES) Hx Pneumonia: Yes Hx Tuberculosis: No - NEUROLOGICAL Hx Neurological Disorder: Yes (SYNCOPE) HX Cerebrovascular Accident: No - HEENT Hx HEENT Problems: No - RENAL Hx Chronic Kidney Disease: No - ENDOCRINE/METABOLIC Hx Endocrine Disorders: Yes Hx Diabetes Mellitus Type 2: Yes (Borderline) - HEMATOLOGICAL/ONCOLOGICAL Hx Blood Disorders: No Hx Cancer: No - INTEGUMENTARY Hx Dermatological Problems: No - MUSCULOSKELETAL/RHEUMATOLOGICAL Hx Musculoskeletal Disorders: Yes Hx Falls: Yes - GASTROINTESTINAL Hx Gastrointestinal Disorders: Yes (COLITIS,GASTRIC [id number],) Other/Comment: Gastropheresis - GENITOURINARY/GYNECOLOGICAL Hx Genitourinary Disorders: No Hx Sexually Transmitted Disorders: No - PSYCHIATRIC Hx Anxiety: Yes Hx Depression: Yes Hx Substance Use: No - SURGICAL HISTORY Hx Cholecystectomy: Yes Hx Gastric Bypass Surgery: Yes (2013) - ANESTHESIA Hx Anesthesia: Yes Hx Anesthesia Reactions: No Hx Malignant Hyperthermia: No Meds Allergies/Adverse Reactions: Allergies Allergy/AdvReac Type Severity Reaction Status Date / Time Penicillins Allergy Intermediate HIVES Verified 01/12/17 13:13 morphine Allergy ITCHING Verified 01/12/17 13:13 naproxen [From Naprosyn] Allergy NAUSEA Verified 01/12/17 13:13 compazine Allergy Intermediate muscle Uncoded 01/12/17 13:13 stiffening - Medications Medications: Current Medications Acetaminophen (Tylenol 325mg Tab) 650 mg PO Q6H PRN PRN Reason: Pain, Mild (1-3) Last Admin: 02/19/17 16:52 Dose: 650 mg Acetaminophen/Butalbital/Caffeine (Fioricet) 1 tab PO Q8H PRN PRN Reason: Migraine headache Last Admin: 02/19/17 15:22 Dose: 1 tab Al Hydrox/Mg Hydrox/Simethicone (Maalox Plus 30 Ml) 30 ml PO DAILY PRN PRN Reason: Upset Stomach Divalproex Sodium (Depakote Dr(*Bid*)) 500 mg PO BID [facility] Last Admin: 02/19/17 16:12 Dose: 500 mg Gabapentin (Neurontin) 100 mg PO TID [facility] PRN Reason: Protocol Last Admin: 02/19/17 17:04 Dose: 100 mg Hydroxyzine Pamoate (Vistaril) 50 mg PO Q8 PRN; Protocol PRN Reason: Anxiety Last Admin: 02/19/17 13:26 Dose: 50 mg Levothyroxine Sodium (Synthroid) 25 mcg PO 0600 [facility] Magnesium Hydroxide (Milk Of Magnesia) 30 ml PO DAILY PRN PRN Reason: Constipation Mirtazapine (Remeron) 15 mg PO HS [facility] Last Admin: 02/18/17 22:47 Dose: 15 mg Pantoprazole Sodium (Protonix Ec Tab) 40 mg PO DAILY [facility] Last Admin: 02/19/17 13:27 Dose: 40 mg Quetiapine Fumarate (Seroquel) 100 mg PO AMHS [facility] PRN Reason: Protocol Vitamin B Complex/Vit C/Folic Acid (Nephro-Corwin) 1 tab PO 0800 RADHA Ziprasidone (Geodon Inj) 20 mg IM Q6H PRN; Protocol PRN Reason: agitation/psychosis Physical Exam - Head Exam Head Exam: ATRAUMATIC, NORMAL INSPECTION, NORMOCEPHALIC - Eye Exam Eye Exam: EOMI, PERRL - ENT Exam ENT Exam: Mucous Membranes Moist, Normal Exam - Neck Exam Neck exam: Positive for: Normal Inspection - Respiratory Exam Respiratory Exam: Clear to Auscultation Bilateral, NORMAL BREATHING PATTERN - Cardiovascular Exam Cardiovascular Exam: REGULAR RHYTHM, +S1, +S2 - GI/Abdominal Exam GI & Abdominal Exam: Normal Bowel Sounds, Soft - Extremities Exam Extremities exam: Positive for: full ROM. Negative for: calf tenderness, pedal edema - Back Exam Back exam: FULL ROM, NORMAL INSPECTION - Neurological Exam Neurological exam: Alert, CN II-XII Intact, Normal Gait, Oriented x3, Reflexes Normal - Psychiatric Exam Psychiatric exam: Anxious - Skin Skin Exam: Dry, Normal Color, Warm Results - Vital Signs Recent Vital Signs: Last Vital Signs Temp 98.6 F 02/19/17 06:29 Pulse 97 H 02/19/17 16:05 Resp 16 02/19/17 06:29 BP 115/71 02/19/17 16:05 Pulse Ox 98 02/18/17 21:16 - Labs Result Diagrams: 02/18/17 18:47 02/18/17 18:47 Assessment & Plan - Assessment and Plan (Free Text) Assessment: Patient is a 51 year old female with past medical history of chronic substance abuse, migraines, seizures, and anemia with requests for medical evaluation Plan: 1. Hyperglycemia - Hemoglobin A1c - Accucheck 2. Hx of EtOH abuse - counseling on cessation of alcohol use 3. Hx of Pancreatitis - counseling on alcohol cessation 4. Hx of substance abuse - counseling on cessation of substance abuse - Date & Time Date: 02/19/17 Time: 12:00 <Vikram Oh MD - Last Filed: 02/25/17 14:16> Meds - Medications Medications: Current Medications Acetaminophen (Tylenol 325mg Tab) 650 mg PO Q6H PRN PRN Reason: Pain, Mild (1-3) Last Admin: 02/19/17 16:52 Dose: 650 mg Acetaminophen/Butalbital/Caffeine (Fioricet) 1 tab PO Q8H PRN PRN Reason: Migraine headache Last Admin: 02/25/17 14:07 Dose: 1 tab Al Hydrox/Mg Hydrox/Simethicone (Maalox Plus 30 Ml) 30 ml PO DAILY PRN PRN Reason: Upset Stomach Artificial Tears (Artificial Tears) 0 ml OU Q6 PRN PRN Reason: Dry eyes Last Admin: 02/25/17 13:02 Dose: 1 u Divalproex Sodium (Depakote Dr(*Bid*)) 500 mg PO BID [facility] Last Admin: 02/25/17 08:30 Dose: 500 mg Divalproex Sodium (Depakote Dr(*Bid*)) 500 mg PO HS [facility] Last Admin: 02/24/17 21:01 Dose: 500 mg Gabapentin (Neurontin) 300 mg PO QID RADHA PRN Reason: Protocol Last Admin: 02/25/17 13:04 Dose: 300 mg Hydroxyzine Pamoate (Vistaril) 50 mg PO Q8 PRN; Protocol PRN Reason: Anxiety Last Admin: 02/25/17 09:17 Dose: 50 mg Levothyroxine Sodium (Synthroid) 25 mcg PO 0600 [facility] Last Admin: 02/25/17 05:54 Dose: 25 mcg Magnesium Hydroxide (Milk Of Magnesia) 30 ml PO DAILY PRN PRN Reason: Constipation Mirtazapine (Remeron) 45 mg PO HS [facility] Last Admin: 02/24/17 21:03 Dose: 45 mg Pantoprazole Sodium (Protonix Ec Tab) 40 mg PO DAILY [facility] Last Admin: 02/25/17 08:31 Dose: 40 mg Vitamin B Complex/Vit C/Folic Acid (Nephro-Corwin) 1 tab PO 0800 [facility] Last Admin: 02/25/17 08:30 Dose: 1 tab Ziprasidone (Geodon Inj) 20 mg IM Q6H PRN; Protocol PRN Reason: agitation/psychosis Last Admin: 02/21/17 21:49 Dose: 20 mg Ziprasidone (Geodon Cap) 20 mg PO BID RADHA PRN Reason: Protocol Last Admin: 02/25/17 08:31 Dose: 20 mg Ziprasidone (Geodon Cap) 40 mg PO HS RADHA PRN Reason: Protocol Last Admin: 02/24/17 21:01 Dose: 40 mg Results - Vital Signs Recent Vital Signs: Last Vital Signs Temp 97.5 F L 02/25/17 07:27 Pulse 75 02/25/17 07:27 Resp 20 02/25/17 07:27 BP 92/64 L 02/25/17 07:27 Pulse Ox 98 02/18/17 21:16 - Labs Result Diagrams: 02/18/17 18:47 02/18/17 18:47 Attending/Attestation - Attestation I have personally seen and examined this patient.: Yes I have fully participated in the care of the patient.: Yes I have reviewed all pertinent clinical information: Yes Notes (Text): 02/25/17 14:12 Patient was seen and examined with medical coder .Agreed with resident assessment and plan. 50 yrs female with PMHx significant for PUD s/p Billroth 2 gastrojejunostomy and vagotomy complicated by gastroparesis, LA class C esophagitis, medication induced (Januvia) pancreatitis, DM, prior DVT not on anticoagulation is admitted with suicidal ideation, Patient does not has any active medical issue at this time, does not has any Nausea or vomitng, tolerating food with out any issue.Patient gave history of elevated blood sugars at home, we will check Hemoglobin 1 AC. Patient has history of back pain, but does not seems to be in pain.She is ambulatory, will confirm pain medications prior to start. There is no active medical issue, we will sign off. Please call us back if any question. Management plan was discussed in detail with patient Education was provided.
[2017-02-20] MEDS: Apap-Butalbital-Caffeine 325-50-40mg Tab PO PRN ×3 (00:07→17:02)
[2017-02-20] MEDS: Multivitamin Vitamin B Complex (Nephro-Vite) Tab PO SCH (08:21)
[2017-02-20] MEDS: Pantoprazole 40 mg EC Tab PO SCH (08:22)
[2017-02-20] MEDS: Levothyroxine 25 MCG TAB PO SCH (08:22)
[2017-02-20] MEDS: Divalproex 500 mg DR(BID formulation) PO SCH ×2 (08:23→16:12)
--- NOTE | 2017-02-20 09:05 | PCM.PYCHPN ---
Psychiatric Progress Note - Psychiatric Progress Note Patient seen today, length of contact: 25 min Problems Identified/Issues Discussed: I reviewed recent notes and patient was interviewed at bedside. Patient has been labile and manipulative consistent with her prior presentations on the psychiatric unit. Patient presents as fairly calm and superficially cooperative during questioning today. She reports that her mood is depressed and anxious. Complains that she isn't receiving Percocet and benzos. Affect is brittle and labile. Patient reports seeing visual hallucinations of "just people standing in front of me" and auditory hallucinations of voices saying "do it". Her thought process is coherent and organized. She is not responding to internal stimuli and does not appear to be in any physical distress Patient denies any side effects from her medications at this time. There were no major behavioral issues overnight however she remains unpredictable Diagnostic Results: rule out major depressive disorder r/o bipolar spectrum disorder r/o AIDS r/o PTSD r/o mood disorder and anxiety disorder due to GMC r/o addiction to pain meds and benzodiazepines alcohol abuse Medication Change: Yes (Increased vistaril to 75 mg po q8 prn) Medical Record Reviewed: Yes Mental Status Examination - Cognitive Function Orientation: Person, Place Attention: WNL Concentration: Poor - Mood Mood: Depressed, Anxious - Affect Affect: Flat, Other (labile) - Formal Thought Process Formal Thought Process: Hallucinations ( Patient reports seeing visual hallucinations of "just people standing in front of me" and auditory hallucinations of voices saying "do it".) - Suicidal Ideation Suicidal Ideation: No - Homicidal Ideation Homicidal Ideation: No Goal/Treatment Plan - Goal/Treatment Plan Progress Toward Problem(s) and Goals/Treatment Plan: * c/w current tx and plan * Increased vistaril to 75 mg po q8 prn * Awaiting VPA level * NOTE: patient retracted 48 hour letter * Vitals reviewed and noted below: Selected Entries 02/19/17 02/19/17 06:29 16:05 Temperature 98.6 F Pulse Rate 78 97 H Respiratory 16 Rate Blood Pressure 83/38 L 115/71
[2017-02-21] MEDS: Apap-Butalbital-Caffeine 325-50-40mg Tab PO PRN ×3 (06:28→21:51)
[2017-02-21] MEDS: Pantoprazole 40 mg EC Tab PO SCH (09:01)
[2017-02-21] MEDS: Divalproex 500 mg DR(BID formulation) PO SCH ×2 (09:01→16:20)
[2017-02-21] MEDS: Multivitamin Vitamin B Complex (Nephro-Vite) Tab PO SCH (09:01)
[2017-02-21] MEDS: Levothyroxine 25 MCG TAB PO SCH (09:02)
--- NOTE | 2017-02-21 09:28 | PCM.PYCHPN ---
Psychiatric Progress Note - Psychiatric Progress Note Patient seen today, length of contact: 25 min Problems Identified/Issues Discussed: I reviewed recent notes and patient was interviewed in the day room. Patient has been labile and manipulative consistent with her prior presentations on the psychiatric unit. Patient presents as superficially cooperative during questioning today. She reports that her mood is depressed and anxious. Remains argumentative about receiving pain meds and benzos. Affect is brittle and labile. Patient continues to report visual hallucinations of "just people standing in front of me" and auditory hallucinations of voices saying "do it". Her thought process is coherent and organized. She is not responding to internal stimuli and does not appear to be in any physical distress. Indicates that today is the 14 year anniversary of her father's Patient denies any side effects from her medications at this time. There were no major behavioral issues overnight however she remains unpredictable Diagnostic Results: rule out major depressive disorder r/o bipolar spectrum disorder r/o ADIS r/o PTSD r/o mood disorder and anxiety disorder due to [place] r/o addiction to pain meds and benzodiazepines alcohol abuse Medication Change: Yes (Increased vistaril to 75 mg po q8 prn on 02/20/17) Medical Record Reviewed: Yes Mental Status Examination - Cognitive Function Orientation: Person, Place, Situation Attention: WNL Concentration: Poor Association: WNL - Mood Mood: Depressed, Anxious - Affect Affect: Flat, Other (labile) - Formal Thought Process Formal Thought Process: Hallucinations ( Patient reports seeing visual hallucinations of "just people standing in front of me" and auditory hallucinations of voices saying "do it".) - Suicidal Ideation Suicidal Ideation: No - Homicidal Ideation Homicidal Ideation: No Goal/Treatment Plan - Goal/Treatment Plan Progress Toward Problem(s) and Goals/Treatment Plan: * c/w current tx and plan * Increased vistaril to 75 mg po q8 prn on 02/20/17 for anxiety * VPA level noted: 02/20/17 07:10 Valproic Acid 34 L * NOTE: patient retracted 48 hour letter on 02/20/17 * Vitals reviewed and noted below: 02/20/17 02/20/17 07:47 16:00 Temperature 97.6 F Pulse Rate 87 91 H Respiratory 20 Rate Blood Pressure 81/47 L 112/65
[2017-02-22] MEDS: Apap-Butalbital-Caffeine 325-50-40mg Tab PO PRN ×3 (05:12→21:21)
[2017-02-22] MEDS: Divalproex 500 mg DR(BID formulation) PO SCH ×2 (07:49→15:27)
[2017-02-22] MEDS: Levothyroxine 25 MCG TAB PO SCH (07:50)
[2017-02-22] MEDS: Pantoprazole 40 mg EC Tab PO SCH (07:50)
[2017-02-22] MEDS: Multivitamin Vitamin B Complex (Nephro-Vite) Tab PO SCH (07:50)
--- NOTE | 2017-02-22 15:28 | PCM.PYCHPN ---
Psychiatric Progress Note - Psychiatric Progress Note Patient seen today, length of contact: 30min Patient Chief Complaint: "I am all over the place..." Problems Identified/Issues Discussed: Suicide/ homicide prevention, past psychiatric h/o, current psychiatric symptoms , medical problems, risk/benefits and alternatives of medications, medications compliance, coping strategies, substance abuse h/o, relapse prevention, importance of follow up with psychiatrist and therapist, discharge plan. Medical Problems: see HPI Diagnostic Results: chronic back pain, h/o seizure disorder, h/o gastroparesis DSM 5 Symptoms Update: shortly patient is 51 yo Female, with reported h/o anxiety and depression, two previous psych admission to this unit, as well as [facility] [place]less [place] ago), multiple medical problems, chronic back pain, gastroparesis, currently does not have outpatient psychiatrist, pt is on disability, lives with her mother/brother, came to the hospital looking for admission for worsening of her depressive/anxiety symptoms, possible suicidal ideation, in the ED pt tried to cut her forearms with a plastic knife and plastic bottle cup , was not able to contract for safety at ED and was admitted for further evaluation and stabilization. Pt was seen today in her room, pt said that she feels "all over the place", pt said she did not have a good night sleep because of the night troncoso, reported geodon was helping her last night, was in agreement to d/c seroquel and start geodon for mood stablization. pt c/o depression, wiling to increase remeron. pt seems has no insight into her mental illness, was blaming her family for " not understanding me". pt is needy, med seeking behaviour. tolerates meds well, no side effects observed or reported. AIMS o no EPS. Impression DSM 5 Diagnosis: rule out major depressive disorder r/o bipolar spectrum disorder r/o ADIS r/o PTSD r/o mood disorder and anxiety disorder due to [facility] r/o addiction to pain meds and benzodiazepines alcohol abuse Medication Change: Yes (Increased vistaril to 75 mg po q8 prn on 02/20/17) Medical Record Reviewed: Yes Mental Status Examination - Cognitive Function Orientation: Person, Place, Situation Attention: WNL Concentration: Poor Association: WNL - Mood Mood: Depressed, Anxious - Affect Affect: Flat, Other (labile) - Formal Thought Process Formal Thought Process: Hallucinations ( Patient reports seeing visual hallucinations of "just people standing in front of me" and auditory hallucinations of voices saying "do it".) - Suicidal Ideation Suicidal Ideation: No - Homicidal Ideation Homicidal Ideation: No Goal/Treatment Plan - Goal/Treatment Plan Need for Continued Stay: Remain at risks for inpatient hospitalization, Severe depression anxiety, Discharge may exacerbated symptoms, Failed transitioning, Severe functional impairment Progress Toward Problem(s) and Goals/Treatment Plan: milieu, structure, supportive therapy neurontin 300mg tid will be continued seroquel d/c geodon 20mg tid for mood stabilization depakote 500mg bid will be continued for mood stabilization We'll check Depakote level 34 01/20/17 vit B complex daily Synthroid will be continued 25 g daily Mirtazapine [Remeron] 30 mg at the nighttime for major depressive disorder as well as insomnia cushion worker 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 we'll monitor closely Medical consult appreciated We'll consider to call neurology consult Estimated Date of D/C: 02/26/17
[2017-02-23] MEDS: Levothyroxine 25 MCG TAB PO SCH (06:16)
[2017-02-23] MEDS: Apap-Butalbital-Caffeine 325-50-40mg Tab PO PRN ×3 (06:16→21:49)
[2017-02-23 07:51] VITALS: RESP 20
[2017-02-23] MEDS: Divalproex 500 mg DR(BID formulation) PO SCH ×2 (09:06→16:11)
[2017-02-23] MEDS: Pantoprazole 40 mg EC Tab PO SCH (09:07)
[2017-02-23] MEDS: Multivitamin Vitamin B Complex (Nephro-Vite) Tab PO SCH (09:08)
--- NOTE | 2017-02-23 13:04 | PCM.PYCHPN ---
Psychiatric Progress Note - Psychiatric Progress Note Patient seen today, length of contact: 30min Patient Chief Complaint: "I slept better" Problems Identified/Issues Discussed: Suicide/ homicide prevention, past psychiatric h/o, current psychiatric symptoms , medical problems, risk/benefits and alternatives of medications, medications compliance, coping strategies, substance abuse h/o, relapse prevention, importance of follow up with psychiatrist and therapist, discharge plan. Medical Problems: see HPI Diagnostic Results: chronic back pain, h/o seizure disorder, h/o gastroparesis DSM 5 Symptoms Update: shortly patient is 51 yo Female, with reported h/o anxiety and depression, two previous psych admission to this unit, as well as [facility] [place] [place] (less than a month ago), multiple medical problems, chronic back pain, gastroparesis, currently does not have outpatient psychiatrist, pt is on disability, lives with her mother/brother, came to the hospital looking for admission for worsening of her depressive/anxiety symptoms, possible suicidal ideation, in the ED pt tried to cut her forearms with a plastic knife and plastic bottle cup , was not able to contract for safety at ED and was admitted for further evaluation and stabilization. Pt was seen today in the treatment team room, pt said that she feels "little better", pt said she slept better, reported that she likes her current med regiment. Pt still had med seeking behavior. pt still depressed, but pt is overall improving. pt seems has no insight into her mental illness, was blaming her family for " not understanding me". pt is needy, med seeking behaviour. tolerates meds well, no side effects observed or reported. AIMS o no EPS. Impression DSM 5 Diagnosis: rule out major depressive disorder r/o bipolar spectrum disorder r/o ADIS r/o PTSD r/o mood disorder and anxiety disorder due to [facility] r/o addiction to pain meds and benzodiazepines alcohol abuse Medication Change: Yes (Increased vistaril to 75 mg po q8 prn on 02/20/17) Medical Record Reviewed: Yes Consults ordered or reviewed: medical consult appreciated Mental Status Examination - Cognitive Function Orientation: Person, Place, Situation Attention: WNL Concentration: Poor Association: WNL - Mood Mood: Depressed ("I am little better"), Anxious - Affect Affect: Flat, Other (labile) - Formal Thought Process Formal Thought Process: Hallucinations (denied) - Suicidal Ideation Suicidal Ideation: No - Homicidal Ideation Homicidal Ideation: No Goal/Treatment Plan - Goal/Treatment Plan Need for Continued Stay: Remain at risks for inpatient hospitalization, Severe depression anxiety, Discharge may exacerbated symptoms, Failed transitioning, Severe functional impairment Progress Toward Problem(s) and Goals/Treatment Plan: milieu, structure, supportive therapy neurontin 300mg will be increased to qid for mood stabilization geodon 20mg tid for mood stabilization depakote 500mg bid will be continued for mood stabilization We'll check Depakote level 34 01/20/17 vit B complex daily Synthroid will be continued 25 g daily Mirtazapine [Remeron] 30 mg at the nighttime for major depressive disorder as well as insomnia 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 we'll monitor closely Medical consult appreciated We'll consider to call neurology consult Estimated Date of D/C: 02/26/17
[2017-02-24] MEDS: Apap-Butalbital-Caffeine 325-50-40mg Tab PO PRN ×3 (05:03→21:03)
[2017-02-24] MEDS: Levothyroxine 25 MCG TAB PO SCH (05:49)
[2017-02-24] MEDS: Divalproex 500 mg DR(BID formulation) PO SCH ×3 (08:19→21:01)
[2017-02-24] MEDS: Pantoprazole 40 mg EC Tab PO SCH (08:20)
[2017-02-24] MEDS: Multivitamin Vitamin B Complex (Nephro-Vite) Tab PO SCH (08:20)
--- NOTE | 2017-02-24 14:59 | PCM.PYCHPN ---
Psychiatric Progress Note - Psychiatric Progress Note Patient seen today, length of contact: 30min Patient Chief Complaint: "I did not sleep that well" Problems Identified/Issues Discussed: Suicide/ homicide prevention, past psychiatric h/o, current psychiatric symptoms , medical problems, risk/benefits and alternatives of medications, medications compliance, coping strategies, substance abuse h/o, relapse prevention, importance of follow up with psychiatrist and therapist, discharge plan. Medical Problems: see HPI Diagnostic Results: chronic back pain, h/o seizure disorder, h/o gastroparesis DSM 5 Symptoms Update: shortly patient is 51 yo Female, with reported h/o anxiety and depression, two previous psych admission to this unit, as well as [facility] [place]), multiple medical problems, chronic back pain, gastroparesis, currently does not have outpatient psychiatrist, pt is on disability, lives with her mother/brother, came to the hospital looking for admission for worsening of her depressive/anxiety symptoms, possible suicidal ideation, in the ED pt tried to cut her forearms with a plastic knife and plastic bottle cup , was not able to contract for safety at ED and was admitted for further evaluation and stabilization. Pt was seen today at the [facility], pt said that she feels "little better", but pt c/o insomnia, asked remeron to be increased. Pt still had med seeking behavior. pt still depressed, but pt is overall improving. as per nursing report patient started to go to groups, presented much better. pt seems has no insight into her mental illness, was blaming her family for " not understanding me". tolerates meds well, no side effects observed or reported. AIMS o no EPS. Impression DSM 5 Diagnosis: rule out major depressive disorder r/o bipolar spectrum disorder r/o ADIS r/o PTSD r/o mood disorder and anxiety disorder due to [facility] [place] r/o addiction to pain meds and benzodiazepines alcohol abuse Medication Change: Yes (Vistaril was decreased, Remeron increased, Geodon at the nighttime was incr) Medical Record Reviewed: Yes Consults ordered or reviewed: medical consult appreciated Mental Status Examination - Cognitive Function Orientation: Person, Place, Situation Attention: WNL Concentration: Poor (some improvement) Association: WNL - Mood Mood: Depressed ("I am little better"), Anxious - Affect Affect: Constricted (but more reactive today) - Speech Speech: Appropriate - Formal Thought Process Formal Thought Process: Hallucinations (denied) - Suicidal Ideation Suicidal Ideation: No - Homicidal Ideation Homicidal Ideation: No Goal/Treatment Plan - Goal/Treatment Plan Need for Continued Stay: Remain at risks for inpatient hospitalization, Severe depression anxiety, Discharge may exacerbated symptoms, Failed transitioning, Severe functional impairment Progress Toward Problem(s) and Goals/Treatment Plan: milieu, structure, supportive therapy neurontin 300mg will be increased to qid for mood stabilization geodon 20mg twice a dayand 40 mg at the nighttime for mood stabilization depakote 500mg Tid will be continued for mood stabilization Depakote level 34 01/20/17 Depakote level 02/23/2017 17 vit B complex daily Synthroid will be continued 25 g daily Mirtazapine [Remeron] 45 mg at the nighttime for major depressive disorder as well as insomnia 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 we'll monitor closely Medical consult appreciated We'll consider to call neurology consult Estimated Date of D/C: 02/26/17
[2017-02-25] MEDS: Apap-Butalbital-Caffeine 325-50-40mg Tab PO PRN ×3 (05:53→21:51)
[2017-02-25] MEDS: Levothyroxine 25 MCG TAB PO SCH (05:54)
[2017-02-25] MEDS: Divalproex 500 mg DR(BID formulation) PO SCH ×3 (08:30→21:20)
[2017-02-25] MEDS: Multivitamin Vitamin B Complex (Nephro-Vite) Tab PO SCH (08:30)
[2017-02-25] MEDS: Pantoprazole 40 mg EC Tab PO SCH (08:31)
[2017-02-25] MEDS: Aritificial Tears (15ml) OU PRN ×2 (13:02→21:19)
--- NOTE | 2017-02-25 17:02 | PCM.PYCHPN ---
Psychiatric Progress Note - Psychiatric Progress Note Patient seen today, length of contact: 30min Patient Chief Complaint: "I feel better, I had a good night's sleep" Problems Identified/Issues Discussed: Suicide/ homicide prevention, past psychiatric h/o, current psychiatric symptoms , medical problems, risk/benefits and alternatives of medications, medications compliance, coping strategies, substance abuse h/o, relapse prevention, importance of follow up with psychiatrist and therapist, discharge plan. Medical Problems: see HPI Diagnostic Results: chronic back pain, h/o seizure disorder, h/o gastroparesis DSM 5 Symptoms Update: shortly patient is 51 yo Female, with reported h/o anxiety and depression, two previous psych admission to this unit, as well as [facility] [place] (less than a month ago), multiple medical problems, chronic back pain, gastroparesis, currently does not have outpatient psychiatrist, pt is on disability, lives with her mother/brother, came to the hospital looking for admission for worsening of her depressive/anxiety symptoms, possible suicidal ideation, in the ED pt tried to cut her forearms with a plastic knife and plastic bottle cup , was not able to contract for safety at ED and was admitted for further evaluation and stabilization. Pt was seen today at the hallway, pt said that she feels "much better, I slept last night", depression is better, pt denied thoughts of harming self or others. Pt still had med seeking behavior, ut with much improvement as per nursing report patient started to go to groups, presented much better. patient insight is also improving, most likely patient will be discharged tomorrow. tolerates meds well, no side effects observed or reported. AIMS o no EPS. Impression DSM 5 Diagnosis: rule out major depressive disorder r/o bipolar spectrum disorder r/o ADIS r/o PTSD r/o mood disorder and anxiety disorder due to [facility] [place] r/o addiction to pain meds and benzodiazepines alcohol abuse Medication Change: No Medical Record Reviewed: Yes Consults ordered or reviewed: medical consult appreciated Mental Status Examination - Cognitive Function Orientation: Person, Place, Situation Attention: WNL Concentration: Poor (improvement) Association: WNL - Mood Mood: Depressed (I feel better), Anxious (my anxiety under control) - Affect Affect: Constricted (but more reactive today) - Speech Speech: Appropriate - Formal Thought Process Formal Thought Process: Hallucinations (denied) - Suicidal Ideation Suicidal Ideation: No - Homicidal Ideation Homicidal Ideation: No Goal/Treatment Plan - Goal/Treatment Plan Need for Continued Stay: Remain at risks for inpatient hospitalization, Severe depression anxiety, Discharge may exacerbated symptoms, Failed transitioning, Severe functional impairment Progress Toward Problem(s) and Goals/Treatment Plan: milieu, structure, supportive therapy neurontin 300mg qid for mood stabilization geodon 20mg twice a dayand 40 mg at the nighttime for mood stabilization depakote 500mg Tid will be continued for mood stabilization Depakote level 34 01/20/17 Depakote level 02/23/2017 17 vit B complex daily Synthroid will be continued 25 g daily Mirtazapine [Remeron] 45 mg at the nighttime for major depressive disorder as well as insomnia 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 we'll monitor closely Medical consult appreciated We'll consider to call neurology consult possible discharge tomorrow Estimated Date of D/C: 02/26/17
[2017-02-26] MEDS: Apap-Butalbital-Caffeine 325-50-40mg Tab PO PRN ×2 (05:47→13:32)
[2017-02-26] MEDS: Aritificial Tears (15ml) OU PRN ×2 (05:51→08:34)
[2017-02-26] MEDS: Levothyroxine 25 MCG TAB PO SCH (05:51)
[2017-02-26 07:50] VITALS: BP 104/72; PULSE 77; TEMP 97.8
[2017-02-26] MEDS: Multivitamin Vitamin B Complex (Nephro-Vite) Tab PO SCH (08:30)
[2017-02-26] MEDS: Divalproex 500 mg DR(BID formulation) PO SCH ×2 (08:31→15:33)
[2017-02-26] MEDS: Pantoprazole 40 mg EC Tab PO SCH (08:31)
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
== END 2017-02-26 15:56 | disposition home or self-care (01) | DRG 426 ==
LOC: ED 17:43 → ERH 20:44 → PSYC 22:04
PROVIDERS: ADMIT Psychiatry & Neurology Psychiatry; ATTEND Psychiatry & Neurology Psychiatry
DX: F32.9 Major depressive disorder, single episode, unspecified (principal); F06.30 Mood disorder due to known physiological condition, unspecified; F06.4 Anxiety disorder due to known physiological condition; F13.10 Sedative, hypnotic or anxiolytic abuse, uncomplicated; K31.84 Gastroparesis; G40.909 Epilepsy, unspecified, not intractable, without status epilepticus; F60.3 Borderline personality disorder; F10.10 Alcohol abuse, uncomplicated; G43.909 Migraine, unspecified, not intractable, without status migrainosus; D64.9 Anemia, unspecified; G89.29 Other chronic pain; R73.03 Prediabetes; Z88.8 Allergy status to other drugs, medicaments and biological substances; Z88.0 Allergy status to penicillin

== ENCOUNTER 2017-03-04 23:25 | Observation (INO) | payer MEDICAID ==
--- NOTE | 2017-03-05 00:37 | ED PDOC ---
Arrival/HPI - General Chief Complaint: Trauma Time Seen by Provider: 03/04/17 23:43 Historian: Patient, EMS - History of Present Illness Narrative History of Present Illness (Text): 03/05/17 00:37 Clara Ortiz is a 51 year old female, whose past medical history includes hypertension, gastroparesis, diabetes, GERD, polysubstance abuse, and anemia, who presents to the ED brought in by EMS following a possible syncopal episode tonight. Patient on questioning appears drowsy and listless. Patient states she does not remember what occurred. Patient denies any chest pain, shortness of breath, or any other complaints. Patient reports 1 episode of vomiting. Symptom Onset: Gradual Symptom Course: Unchanged Activities at Onset: Light Context: Home Past Medical History - Provider Review Nursing Documentation Reviewed: Yes - Infectious Disease Hx of Infectious Diseases: None - Tetanus Immunization Tetanus Immunization: Unknown - Past Medical History Past Medical History: No Previous - Cardiac Hx Cardiac Disorders: Yes Hx Hypertension: Yes - Pulmonary Hx Respiratory Disorders: Yes (SMOKES CIGARETTES) Hx Pneumonia: Yes Hx Tuberculosis: No - Neurological Hx Neurological Disorder: Yes (SYNCOPE) HX Cerebrovascular Accident: No - HEENT Hx HEENT Disorder: No - Renal Hx Renal Disorder: No - Endocrine/Metabolic Hx Endocrine Disorders: Yes Hx Diabetes Mellitus Type 2: Yes (Borderline) - Hematological/Oncological Hx Blood Disorders: No Hx Cancer: No - Integumentary Hx Dermatological Disorder: No - Musculoskeletal/Rheumatological Hx Musculoskeletal Disorders: Yes Hx Falls: Yes - Gastrointestinal Hx Gastrointestinal Disorders: Yes (COLITIS,GASTRIC [id number],) Other/Comment: Gastropheresis - Genitourinary/Gynecological Hx Genitourinary Disorders: No Hx Sexually Transmitted Diseases: No - Psychiatric Hx Anxiety: Yes Hx Depression: Yes Hx Substance Use: No - Surgical History Hx Cholecystectomy: Yes Hx Gastric Bypass Surgery: Yes (2013) - Anesthesia Hx Anesthesia: Yes Hx Anesthesia Reactions: No Hx Malignant Hyperthermia: No - Suicidal Assessment Feels Threatened In Home Enviroment: No Family/Social History - Physician Review Nursing Documentation Reviewed: Yes Family/Social History: Unknown Family HX Smoking Status: Former Smoker Hx Alcohol Use: No Hx Substance Use: No Hx Substance Use Treatment: No Allergies/Home Meds Allergies/Adverse Reactions: Allergies Penicillins Allergy (Intermediate, Verified 01/12/17 13:13) HIVES morphine Allergy (Verified 01/12/17 13:13) ITCHING naproxen [From Naprosyn] Allergy (Verified 01/12/17 13:13) NAUSEA compazine Allergy (Intermediate, Uncoded 01/12/17 13:13) muscle stiffening Review of Systems - Physician Review All systems were reviewed & negative as marked: Yes - Review of Systems Constitutional: Other (+generalized malaise) Eyes: Normal ENT: Normal Respiratory: Normal. absent: SOB, Cough Cardiovascular: Syncope. absent: Chest Pain Gastrointestinal: Vomiting. absent: Diarrhea, Nausea Genitourinary Female: Normal. absent: Dysuria, Frequency, Hematuria, Urine Output Changes Musculoskeletal: Normal. absent: Back Pain, Neck Pain Skin: Normal. absent: Rash Neurological: absent: Dizziness Psychiatric: Normal Physical Exam Vital Signs Reviewed: Yes Vital Signs Temp Pulse Resp BP Pulse Ox 03/04/17 23:55 98.4 F 97 H 18 129/76 97 Temperature: Afebrile Blood Pressure: Normal Pulse: Regular Respiratory Rate: Normal Appearance: Positive for: Well-Appearing, Non-Toxic, Comfortable Pain Distress: None Mental Status: Positive for: other (Drowsy but arousbale) - Systems Exam Head: Present: Atraumatic, Normocephalic Pupils: Present: PERRL Extroacular Muscles: Present: EOMI Conjunctiva: Present: Normal Mouth: Present: Moist Mucous Membranes Neck: Present: Normal Range of Motion Respiratory/Chest: Present: Clear to Auscultation, Good Air Exchange. No: Respiratory Distress, Accessory Muscle Use Cardiovascular: Present: Regular Rate and Rhythm, Normal S1, S2. No: Murmurs Abdomen: Present: Normal Bowel Sounds. No: Tenderness, Distention, Peritoneal Signs Back: Present: Normal Inspection Upper Extremity: Present: Normal Inspection. No: Cyanosis, Edema Lower Extremity: Present: Normal Inspection. No: Edema Neurological: Present: GCS=15, CN II-XII Intact, Speech Normal Skin: Present: Warm, Dry, Normal Color. No: Rashes Psychiatric: Present: Other (Drowsy but arousable) Medical Decision Making ED Course and Treatment: 03/05/17 00:37 Impression: 51 year old female brought following possible syncopal episode. Plan: -- CT Head w/o contrast -- EKG -- CXR -- Labs, cardiac enzymes -- Reassess and disposition Progress Notes: Reviewed EKG, NSR at [address]-segment elevations or depressions, no T-wave inversions, normal intervals. 03/05/17 01:30 Reviewed radiology, CT Head shows: Limitations: Motion artifact - mild. Brain: Mild atrophy. No definite intracranial hemorrhage. No mass. No definite edema. Ventricles: No hydrocephalus. Bones/joints: No acute fracture. Soft tissues: Unremarkable. Sinuses: Few tiny maxillary retention cysts. Mastoid air cells: No mastoid effusion. Orbits: Tiny calcifications along posterior globes, stable. IMPRESSION: 1. No definite acute intracranial abnormality. Acute infarction may be CT occult within first 24 hours. If a focal deficit persists, consider followup CT or MRI for further evaluation. 2. Incidental/non-acute findings are described above. 03/05/17 03:28 Reviewed radiology, CXR shows no acute processes. 03/05/17 04:55 Case discussed with certified medical records coder building insulation installer, who is aware and agrees with plan. 03/05/17 04:[address] Longoria, who is aware and agrees with plan. Accepts pt in to hospitalist service. Pt will go to Telemetry observation for syncope. - Lab Interpretations Lab Results: 03/05/17 02:20 03/05/17 02:20 Lab Results 03/05/17 04:27: PT 13.6 H, INR 1.26 H, APTT 20.7 L 03/05/17 02:20: Alcohol, Quantitative < 10 03/05/17 02:20: WBC 6.7, RBC 3.79, Hgb 9.8 L, Hct 31.1 L, MCV 82.1, MCH 25.9, MCHC 31.5, RDW 18.2 H, Plt Count 241, MPV 9.3 03/05/17 02:20: Sodium 142, Potassium 4.9, Chloride 107, Carbon Dioxide 24, Anion Gap 16, BUN 32 H, Creatinine 1.3, Est GFR ( Amer) 52, Est GFR (Non- Af Amer) 43, Random Glucose 112 H, Calcium 9.0, Total Bilirubin 0.3, AST 27, ALT 57 H, Alkaline Phosphatase 69, Lactate Dehydrogenase 440, Total Creatine Kinase 91, Troponin I < 0.01, Total Protein 6.5, Albumin 3.9, Globulin 2.6, Albumin/Globulin Ratio 1.5 I have reviewed the lab results: Yes - RAD Interpretation Radiology Orders: 03/05/17 00:37 HEAD W/O CONTRAST [CT] Stat CHEST PORTABLE [RAD] Stat Line Tester: ED Physician, Radiologist - EKG Interpretation Interpreted by ED Physician: Yes Type: 12 lead EKG - Scribe Statement The provider has reviewed the documentation as recorded by the Jose Antonio Brown Provider Scribe Attestation: All medical record entries made by the Scribe were at my direction and personally dictated by me. I have reviewed the chart and agree that the record accurately reflects my personal performance of the history, physical exam, medical decision making, and the department course for this patient. I have also personally directed, reviewed, and agree with the discharge instructions and disposition. Disposition/Present on Arrival - Present on Arrival Any Indicators Present on Arrival: No History of DVT/PE: No History of Uncontrolled Diabetes: No Urinary Catheter: No History of Decub. Ulcer: No History Surgical Site Infection Following: None - Disposition Have Diagnosis and Disposition been Completed?: Yes Diagnosis: Syncope Disposition: HOSPITALIZED Disposition Time: 04:59 Patient Plan: Observation Condition: STABLE Discharge Instructions (ExitCare): Syncope (ED) Referrals: Hever Melvin MD [Primary Care Provider] - Follow up with primary Forms: [employer] (Togolese)
--- NOTE | 2017-03-05 01:29 | CT ---
EXAM: CT Head Without Intravenous Contrast CLINICAL HISTORY: 51 years old, female; Pain; Headache; Additional info: Weak TECHNIQUE: Axial computed tomography images of the head/brain without intravenous contrast. All CT scans at this facility use one or more dose reduction techniques, viz.: automated exposure control; ma/kV adjustment per patient size (including targeted exams where dose is matched to indication; i.e. head); or iterative reconstruction technique. COMPARISON: CT - HEAD W/O CONTRAST 02/13/2017 6:28:56 PM FINDINGS: Limitations: Motion artifact - mild. Brain: Mild atrophy. No definite intracranial hemorrhage. No mass. No definite edema. Ventricles: No hydrocephalus. Bones/joints: No acute fracture. Soft tissues: Unremarkable. Sinuses: Few tiny maxillary retention cysts. Mastoid air cells: No mastoid effusion. Orbits: Tiny calcifications along posterior globes, stable. IMPRESSION: 1. No definite acute intracranial abnormality. Acute infarction may be CT occult within first 24 hours. If a focal deficit persists, consider followup CT or MRI for further evaluation. 2. Incidental/non-acute findings are described above.
[2017-03-05 02:31] LABS: HEMATOCRIT 31.1 % (36.0-48.0); MEAN CELL VOLUME 82.1 fl (80.0-105.0); MEAN CORPUSCULAR HEMOGLOBIN 25.9 pg (25.0-35.0); MEAN CORPUSCULAR HGB CONC 31.5 g/dl (31.0-37.0); MEAN PLATELET VOLUME 9.3 fl (7.0-11.0); RED CELL DISTRIBUTION WIDTH 18.2 % (11.5-14.5); WHITE BLOOD COUNT 6.7 10^3/ul (4.5-11.0)
[2017-03-05 02:56] LABS: ALB/GLOB RATIO 1.5 (1.1-1.8); ALKALINE PHOSPHATASE 69 U/L (38-133); ALT/SGPT 57 U/L (7-56); AST/SGOT 27 U/L (15-39); BILIRUBIN,TOTAL 0.3 mg/dL (0.2-1.3); BLOOD UREA NITROGEN 32 mg/dL (7-21); CARBON DIOXIDE 24 mmol/L (21-33); CHLORIDE 107 mmol/L (95-110); GFR AFRICAN-AMERICAN 52; GLUCOSE,RANDOM 112 mg/dL (70-110); POTASSIUM 4.9 mmol/L (3.6-5.0); SODIUM 142 mmol/L (132-148); TOTAL PROTEIN 6.5 g/dL (5.8-8.3)
[2017-03-05 03:17] LABS: TROPONIN I < 0.01 ng/mL
[2017-03-05 04:48] LABS: INR 1.26 (0.93-1.08); PARTIAL THROMBOPLASTIN TIME 20.7 Seconds (23.7-30.8)
[2017-03-05 05:43] VITALS: O2SAT 100
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
[2017-03-05] MEDS ORDERED: Pantoprazole 20 mg EC Tab PO ONE (06:30)
--- NOTE | 2017-03-05 07:46 | RAD ---
HISTORY: weak COMPARISON: Comparison is made to 02/18/2017 FINDINGS: LUNGS: No evidence of new infiltrate or consolidation in the lungs PLEURA: No significant pleural effusion identified, no pneumothorax apparent. CARDIOVASCULAR: Normal. OSSEOUS STRUCTURES: No significant abnormalities. VISUALIZED UPPER ABDOMEN: Normal. OTHER FINDINGS: Surgical clips seen at the epigastric region new compared to the previous exam. IMPRESSION: No active disease.
--- NOTE | 2017-03-05 09:36 | CARD ---
APPROVED REPORT EKG Measurement Heart [id number] CA [id number] <Conclusion> Normal sinus rhythm Normal ECG
[2017-03-05 12:18] VITALS: BMI 23.0
[2017-03-05 12:27] VITALS: BP 105/70; PULSE 66; RESP 14; TEMP 97
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
--- NOTE | 2017-03-05 16:27 | CARD ---
APPROVED REPORT EKG Measurement Heart [id number] NM [id number] [id number] <Conclusion> Normal sinus rhythm Normal ECG
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
--- NOTE | 2017-03-08 08:15 | CON ---
DATE: 03/05/2017 HISTORY OF PRESENT ILLNESS: The patient is a 51-year-old white female with a past medical history of seizure disorder, borderline diabetes mellitus, hypertension, gastroparesis, diabetes, GERD, but also more problematically from a psychiatric perspective probably substance abuse. Somewhere along the line, she has been diagnosed with a schizoaffective disorder, but does not appear to be that. She indicated she had "passed out" on the night prior to her admission and was taken to the hospital. She deemed to be medication seeking (Percocet). Her family expressed concern that she may have taken too much Klonopin, which had been prescribed during the course of her previous hospitalization that she has been hospitalized on the psychiatric unit from 02/18/2017 to 02/26/2017, at which time she was given diagnosis of borderline personality disorder, anxiety disorder due to general medical condition, major depression, mood disorder due to a general medical condition, sedative, hypnotic, or anxiolytic abuse, alcohol abuse. At that time, it was observed that the patient is considered to be very manipulative and medication seeking (benzodiazepines and pain medications). She also had been noted to have an alcohol problem, has had blackouts most recently is one week prior to that admission. Presently as I am interactive with the patient, I have refused to give her more Klonopin than she had stated (1 mg bedtime) and adjusted her Geodon dose from 20 mg b.i.d. and 40 mg evening to 40 mg b.i.d. The patient was not deemed to be homicidal, suicidal, or psychotic at the time of my evaluation of her. She is considered to be a borderline personality disorder with a substance abuse problem. Jean-Pierre Gutierrez MD/ PhD
--- NOTE | 2017-03-08 08:54 | CP.PCM.PCO ---
Physician Communication Note - Physician Communication Note Physician Communication Note: pt was seen by
== END 2017-03-05 15:46 | disposition left against medical advice (07) ==
LOC: ED 23:25 → ERH 03-05 04:55 → 2RSO 03-05 06:22
PROVIDERS: ADMIT Internal Medicine; ATTEND Internal Medicine
DX: R55 Syncope and collapse (principal); E11.43 Type 2 diabetes mellitus with diabetic autonomic (poly)neuropathy; K31.84 Gastroparesis; K21.9 Gastro-esophageal reflux disease without esophagitis; I10 Essential (primary) hypertension; F31.9 Bipolar disorder, unspecified; M54.5 Low back pain; G40.909 Epilepsy, unspecified, not intractable, without status epilepticus; F11.20 Opioid dependence, uncomplicated; Z88.0 Allergy status to penicillin; F17.210 Nicotine dependence, cigarettes, uncomplicated; F60.3 Borderline personality disorder; Z76.5 Malingerer [conscious simulation]
CPT/HCPCS: 70450; 71010; 80053; 80164; 80320; 80324; 80345; 80346; 80349; 80353; 80358; 80361; 82550; 83615; 83992; 84443; 84484; 85027; 85610; 85730; 93005; 96374; 99285; G0378; J2060

== ENCOUNTER 2017-03-14 18:26 | Emergency (ER) | payer MEDICAID ==
[2017-03-14 18:26] VITALS: BMI 23.0
[2017-03-14 18:35] VITALS: TEMP 98.1
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
[2017-03-14 20:41] VITALS: BP 112/63; PULSE 76; RESP 18; O2SAT 99
--- NOTE | 2017-03-15 08:12 | RAD ---
PROCEDURE: Radiographs of the Lumbar Spine. HISTORY: Fall COMPARISON: No prior. FINDINGS: BONES: There is severe levoscoliosis in the lumbar spine centered at L2-3. There is normal alignment of the lumbar vertebral bodies. Lumbar lordosis is maintained. Vertebral bodies are normal height. There is diffuse bone demineralization. DISC SPACES: There is severe degenerative disc disease at L2-3 with reduced disc height and anterior osteophytes. There is multilevel facet arthropathy. There is mild degenerative disc disease at L5-S1. OTHER FINDINGS: A round calcification overlying the right renal silhouette likely represents a small stone. There is moderate amount of stool in the colon and rectum. There are phleboliths in the pelvis. Both sacroiliac joints are normal. IMPRESSION: No acute fracture. Multilevel degenerative disc disease, worse at L2-3. Severe levoscoliosis in the lumbar spine.
--- NOTE | 2017-03-15 08:17 | RAD ---
PROCEDURE: Right Foot Radiographs. HISTORY: Fall COMPARISON: None. FINDINGS: BONES: There is diffuse bone demineralization. There is no acute fracture or bone destruction. JOINTS: Normal. SOFT TISSUES: Normal. OTHER FINDINGS: None. IMPRESSION: No acute fracture or dislocation.
--- NOTE | 2017-03-15 08:22 | RAD ---
PROCEDURE: Left Knee Radiographs. HISTORY: Pain. COMPARISON: None. FINDINGS: BONES: There is no acute displaced fracture or bone destruction. Bone alignment is normal there is mild periarticular bone demineralization. JOINTS: There is mild degenerative osteoarthrosis in the medial compartment. JOINT EFFUSION: There is a small suprapatellar joint effusion. OTHER FINDINGS: None. IMPRESSION: Mild degenerative osteoarthrosis in the medial compartment and small suprapatellar joint effusion.
== END 2017-03-14 20:41 | disposition home or self-care (01) ==
LOC: ED 18:26
DX: M54.5 Low back pain (principal); W01.0XXA Fall on same level from slipping, tripping and stumbling without subsequent striking against object, initial encounter; Y93.89 Activity, other specified; Y92.512 Supermarket, store or market as the place of occurrence of the external cause

== ENCOUNTER 2017-03-31 00:25 | Inpatient (IN) | payer MEDICAID ==
[2017-03-31 00:26] VITALS: BMI 23.0
[2017-03-31 01:20] LABS: BASO # 0.03 K/mm3 (0.0-2.0); BASO % 0.5 % (0.0-3.0); EOS # 0.2 (0.0-0.7); EOS % 3.9 % (1.5-5.0); GRAN # 2.05 (1.4-6.5); GRAN % 32.9 % (50.0-68.0); HEMATOCRIT 30.7 % (36.0-48.0); LYMPH # 3.3 (1.2-3.4); LYMPH % 53.4 % (22.0-35.0); MEAN CELL VOLUME 81.2 fl (80.0-105.0); MEAN CORPUSCULAR HEMOGLOBIN 25.7 pg (25.0-35.0); MEAN CORPUSCULAR HGB CONC 31.6 g/dl (31.0-37.0); MEAN PLATELET VOLUME 9.5 fl (7.0-11.0); MONO # 0.6 (0.1-0.6); MONO % 9.3 % (1.0-6.0); RED CELL DISTRIBUTION WIDTH 17.4 % (11.5-14.5); WHITE BLOOD COUNT 6.2 10^3/ul (4.5-11.0)
[2017-03-31 01:21] LABS: ALB/GLOB RATIO 1.4 (1.1-1.8); BILIRUBIN,TOTAL 0.4 mg/dL (0.2-1.3); CALCIUM 9.2 mg/dL (8.4-10.5); POTASSIUM 4.1 mmol/L (3.6-5.0); TOTAL PROTEIN 6.5 g/dL (5.8-8.3)
[2017-03-31 01:28] LABS: URINE BILIRUBIN NEGATIVE (NEGATIVE); URINE BLOOD NEGATIVE (NEGATIVE); URINE GLUCOSE (UA) NEGATIVE (NEGATIVE); URINE KETONE NEGATIVE (NEGATIVE); URINE LEUKOCYTE ESTERASE MODERATE Leu/uL (NEGATIVE); URINE PROTEIN NEGATIVE mg/dL (<30 mg/dL); URINE UROBILINOGEN 0.2 E.U./dL (<1 E.U./dL)
[2017-03-31 01:32] LABS: URINE APPEARANCE CLEAR (CLEAR); URINE COLOR YELLOW (YELLOW)
[2017-03-31 01:49] LABS: URINE BACTERIA RARE (NEG); URINE EPITHELIAL CELLS 0 - 2 /hpf (0-5); URINE RBC 0 - 2 /hpf (0-2)
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
[2017-03-31] MEDS ORDERED: Alum-Mag Hydrox-Simethicone Susp (30 mL) PO PRN (04:24)
[2017-03-31] MEDS ORDERED: Magnesium Hydroxide Susp 30 ml UD PO PRN (04:24)
--- NOTE | 2017-03-31 04:35 | PCM.BM ---
<Paul Rodriguez - Last Filed: 03/31/17 04:33> Treatment Plan Problems - Problems identified on initial assessmt Suicidal Ideation Date Initiated: 03/31/17 Time Initiated: 04:33 Assessment reference: NA Status: Active Priority: 1 Hopelessness Date Initiated: 03/31/17 Time Initiated: 04:33 Assessment reference: NA Status: Active Priority: 2 Hallucinations Date Initiated: 03/31/17 Time Initiated: 04:33 Assessment reference: NA Priority: 3 Comment: experiences auditory and visual Altered Sleep Patterns Date Initiated: 03/31/17 Time Initiated: 04:34 Assessment reference: NA Status: Active Priority: 4 Comment: C/o insomnia and inability to stay asleep Medication Noncompliance Date Initiated: 03/31/17 Time Initiated: 04:34 Assessment reference: NA Status: Active Priority: 5 Comment: did not follow up with outpatient apt, did not get refills Treatment assets and liabiliti Patient Assests: cooperative, insightful, self-reliant, ADL independent, physically healthy, good support system, negotiates basic needs, cognitively intact, good interpersonal skills Patient Liabilities: financial problems, relationship conflicts - Milieu Protocol Maintain good personal hygiene: every shift Encourage regular showers Maintain personal safety: every shift Educate patient to report safety concerns to staff, every shift Monitor environment for contraband/sharps Medication safety: Monitor for expected outcome, potential side effects: every shift, Assess barriers to learning: every shift, Assess readiness for medication education: every shift Discharge/Continuing Care - Education Needs Education Needs: Patient Medication, Patient Diagnosis/Disease Process, Patient Coping Skills, Patient Pain, Patient Aftercare Safety Plan - Discharge Discharge Criteria: Tolerates medication w/o severe side effects, Free of Suicidal thoughts, Normal sleep pattern Discharge to:: Home <Janice Guerra - Last Filed: 03/31/17 08:55> - Diagnosis (1) Anxiety Status: Acute Interventions: 03/31/17 08:56 Psychoeducation Psychopharmacology/adjustment of medications as needed/ monitoring possible side effects Evaluate pt on daily basis Compliance with medications and follow up appointments Suicide and homicide risk assessment and prevention, coping strategies, safety plan Reduction of symptoms Relaxation techniques and breathing exercises Improve functional status Family involvement As outpatient: cognitive behavioral therapy (2) Borderline personality disorder in adult Status: Chronic Interventions: 03/31/17 08:56 Psychoeducation Psychopharmacology/adjustment of medications as needed/ monitoring possible side effects Evaluate pt on daily basis Compliance with medications and follow up appointments Suicide and homicide risk assessment and prevention, coping strategies, safety plan Relapse prevention Family involvement dialectical behavioral therapy/schema therapy as outpatient Mindfulness skills (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 Interventions: 03/31/17 08:57 Psychoeducation Psychopharmacology/adjustment of medications as needed/ monitoring possible side effects Evaluate pt on daily basis Compliance with medications and follow up appointments Suicide and homicide risk assessment and prevention Relapse prevention Reduction of symptoms Improve functional status Family involvement As outpatient: cognitive behavioral therapy (4) Sedative, hypnotic, or anxiolytic abuse, daily use Status: Chronic Interventions: 03/31/17 08:57 Monitoring withdrawal symptoms Medical detoxification if appropriate Pharmacotherapy for alcohol/benzos/opioid dependence Maintaining sobriety Relapse prevention Possible rehabilitation Motivational interviewing 12-step programs: AA meetings <Laura Clemente Y - Last Filed: 03/31/17 16:09> Family Contact Family involvement: Family/SO is involved
--- NOTE | 2017-03-31 07:14 | RAD ---
HISTORY: pes eval COMPARISON: 03/05/2017 FINDINGS: LUNGS: No active pulmonary disease. PLEURA: No significant pleural effusion identified, no pneumothorax apparent. CARDIOVASCULAR: Normal. OSSEOUS STRUCTURES: Dextroscoliosis VISUALIZED UPPER ABDOMEN: GE elkin junctional surgical clips OTHER FINDINGS: None. IMPRESSION: No active disease. No interval pathology
[2017-03-31 08:17] LABS: CHOLESTEROL 145 mg/dL (130-200); GLUCOSE,FASTING 101 mg/dL (65-110)
[2017-03-31 08:31] LABS: FREE T4 1.1 ng/dL (0.78-2.19)
[2017-03-31 08:45] LABS: THYROID STIMULATING HORMONE 5.48 mIU/mL (0.46-4.68)
--- NOTE | 2017-03-31 09:55 | CARD ---
APPROVED REPORT EKG Measurement Heart [id number] <Conclusion> Normal sinus rhythm Normal ECG
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
[2017-03-31] MEDS: Apap-Butalbital-Caffeine 325-50-40mg Tab PO PRN (15:11)
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
[2017-03-31] MEDS: Divalproex 500 mg DR(BID formulation) PO SCH (17:49)
[2017-04-01] MEDS ORDERED: Levothyroxine 25 MCG TAB PO SCH (06:00)
[2017-04-01 06:50] VITALS: BP 112/75; PULSE 80; RESP 19; TEMP 98; O2SAT 98
[2017-04-01] MEDS: Divalproex 500 mg DR(BID formulation) PO SCH (08:01)
[2017-04-01] MEDS: Apap-Butalbital-Caffeine 325-50-40mg Tab PO PRN (08:04)
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
== END 2017-04-01 11:32 | disposition left against medical advice (07) | DRG 425 ==
LOC: ED 00:25 → ERH 03:07 → PSYC 03:26
PROVIDERS: ADMIT Psychiatry & Neurology Psychiatry; ATTEND Psychiatry & Neurology Psychiatry
DX: F41.9 Anxiety disorder, unspecified (principal); F06.30 Mood disorder due to known physiological condition, unspecified; F13.10 Sedative, hypnotic or anxiolytic abuse, uncomplicated; E11.43 Type 2 diabetes mellitus with diabetic autonomic (poly)neuropathy; K31.84 Gastroparesis; F60.3 Borderline personality disorder; I10 Essential (primary) hypertension; E03.9 Hypothyroidism, unspecified; M54.5 Low back pain; G89.29 Other chronic pain; G43.909 Migraine, unspecified, not intractable, without status migrainosus; D64.9 Anemia, unspecified; Z88.0 Allergy status to penicillin; Z88.5 Allergy status to narcotic agent; Z91.14 Patient's other noncompliance with medication regimen

== ENCOUNTER 2017-04-30 13:13 | Emergency (ER) | payer MEDICAID ==
[2017-04-30 13:33] VITALS: TEMP 98.8; BMI 23.3
[2017-04-30] MEDS ORDERED: Oxycodone/Acetaminophen 5/325 mg Tab PO STA (13:48)
[2017-04-30 14:09] VITALS: RESP 17
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
[2017-04-30 15:49] VITALS: BP 118/78; PULSE 70; O2SAT 99
--- NOTE | 2017-05-01 09:08 | RAD ---
PROCEDURE: Left Knee Radiographs. HISTORY: Pain. COMPARISON: None. FINDINGS: BONES: Normal. No fracture. JOINTS: Normal. No osteoarthritis. JOINT EFFUSION: Small suprapatellar joint effusion. OTHER FINDINGS: None. IMPRESSION: No evidence of acute displaced fracture nor dislocation. Small suprapatellar joint effusion the
--- NOTE | 2017-05-01 09:27 | US ---
PROCEDURE: Left lower extremity venous US HISTORY: Leg pain and swelling. Evaluate for DVT. PHYSICIAN(S): Davon Hill MD. TECHNIQUE: Duplex sonography and color-flow Doppler with graded compression were used to evaluate the deep venous system of the left lower extremity. FINDINGS: The visualized deep venous system of the left lower extremity is sonographically normal and compressible. Normal wave forms and augmentation are seen. There is no sonographic evidence for deep venous thrombosis in the visualized segments of the left lower extremity. IMPRESSION: 1. No sonographic evidence for deep venous thrombosis in the visualized segments of the left lower extremity.
== END 2017-04-30 15:49 | disposition home or self-care (01) ==
LOC: ED 13:13
DX: M25.562 Pain in left knee (principal); M79.605 Pain in left leg; E11.9 Type 2 diabetes mellitus without complications

== ENCOUNTER 2017-05-31 13:41 | Emergency (ER) | payer MEDICAID ==
[2017-05-31 13:42] VITALS: BMI 22.6
[2017-05-31 14:13] VITALS: RESP 16; TEMP 98.2; O2SAT 100
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
[2017-05-31] MEDS ORDERED: Apap-Butalbital-Caffeine 325-50-40mg Tab PO STA ×2 (14:44→17:30)
[2017-05-31] MEDS ORDERED: Sodium Chloride 0.9% 1,000 ML IV STA (14:44)
--- NOTE | 2017-05-31 15:25 | CT ---
PROCEDURE: CT HEAD WITHOUT CONTRAST. HISTORY: Fall COMPARISON: 03/05/2017. TECHNIQUE: Axial computed tomography images were obtained through the head/brain without intravenous contrast. Radiation dose: Total exam DLP = 678.13 mGy-cm. This CT exam was performed using one or more of the following dose reduction techniques: Automated exposure control, adjustment of the mA and/or kV according to patient size, and/or use of iterative reconstruction technique. FINDINGS: HEMORRHAGE: No intracranial hemorrhage. BRAIN: Arambula-white matter differentiation is preserved. There is no mass, mass effect or abnormal extra-axial fluid collection. VENTRICLES: There is mild global parenchymal volume loss and proportionate enlargement of the ventricles and cortical sulci with frontal predominance. CALVARIUM: There is no calvarial fracture or extracranial soft tissue swelling. PARANASAL SINUSES: Predominantly clear. MASTOID AIR CELLS: Predominantly clear. OTHER FINDINGS: None. IMPRESSION: No acute intracranial abnormality. Mild global parenchymal volume loss with frontal predominance, advanced for the patient's age.
--- NOTE | 2017-05-31 15:32 | RAD ---
HISTORY: fall COMPARISON: 05/19/2017. FINDINGS: LUNGS: The lungs are well inflated and clear. PLEURA: No significant pleural effusion identified, no pneumothorax apparent. CARDIOVASCULAR: Normal. OSSEOUS STRUCTURES: No significant abnormalities. VISUALIZED UPPER ABDOMEN: Normal. OTHER FINDINGS: None. IMPRESSION: No active pulmonary disease.
[2017-05-31 16:08] LABS: BASO # 0.02 K/mm3 (0.0-2.0); BASO % 0.3 % (0.0-3.0); EOS % 0.3 % (1.5-5.0); GRAN # 3.7 (1.4-6.5); GRAN % 62.8 % (50.0-68.0); HEMATOCRIT 30.4 % (36.0-48.0); LYMPH # 1.9 (1.2-3.4); LYMPH % 31.5 % (22.0-35.0); MEAN CELL VOLUME 80.6 fl (80.0-105.0); MEAN CORPUSCULAR HEMOGLOBIN 24.9 pg (25.0-35.0); MEAN CORPUSCULAR HGB CONC 30.9 g/dl (31.0-37.0); MONO # 0.3 (0.1-0.6); MONO % 5.1 % (1.0-6.0); RED CELL DISTRIBUTION WIDTH 16.9 % (11.5-14.5); WHITE BLOOD COUNT 5.9 10^3/ul (4.5-11.0)
[2017-05-31 16:18] LABS: ALB/GLOB RATIO 1.3 (1.1-1.8); ALKALINE PHOSPHATASE 81 U/L (38-126); ALT/SGPT 29 U/L (7-56); AST/SGOT 27 U/L (14-36); BILIRUBIN,TOTAL 0.4 mg/dL (0.2-1.3); BLOOD UREA NITROGEN 13 mg/dL (7-21); CALCIUM 9.3 mg/dL (8.4-10.5); CARBON DIOXIDE 21 mmol/L (21-33); CHLORIDE 110 mmol/L (98-107); GFR AFRICAN-AMERICAN > 60; GLUCOSE,RANDOM 138 mg/dL (70-110); LIPASE 31 U/L (23-300); MAGNESIUM 1.5 mg/dL (1.7-2.2); PHOSPHOROUS 3.1 mg/dL (2.5-4.5); POTASSIUM 3.5 mmol/L (3.6-5.0); SODIUM 140 mmol/L (132-148); TOTAL PROTEIN 6.7 g/dL (5.8-8.3)
[2017-05-31 16:31] LABS: TROPONIN I < 0.01 ng/mL
[2017-05-31 17:50] VITALS: BP 126/87; PULSE 82
--- NOTE | 2017-05-31 23:07 | CARD ---
APPROVED REPORT EKG Measurement Heart [id number] <Conclusion> Normal sinus rhythm Normal ECG
== END 2017-05-31 17:48 | disposition home or self-care (01) ==
LOC: ED 13:41
DX: R51 Headache (principal); F41.9 Anxiety disorder, unspecified; E11.9 Type 2 diabetes mellitus without complications; I10 Essential (primary) hypertension; M19.90 Unspecified osteoarthritis, unspecified site; Z87.891 Personal history of nicotine dependence; Z88.0 Allergy status to penicillin; Z86.73 Personal history of transient ischemic attack (TIA), and cerebral infarction without residual deficits; E05.90 Thyrotoxicosis, unspecified without thyrotoxic crisis or storm
CPT/HCPCS: 70450; 71010; 80053; 82550; 82948; 83690; 83735; 84100; 84484; 85025; 93005; 99285; J7040

== ENCOUNTER 2017-06-07 18:53 | Inpatient (IN) | payer MEDICAID ==
[2017-06-07] MEDS ORDERED: HYDROmorphone 1 mg/ml ISec IVP STA (19:30)
[2017-06-07] MEDS ORDERED: Sodium Chloride 0.9% 1,000 ML IV STA (19:30)
[2017-06-07] MEDS ORDERED: HYDROmorphone 2 mg/ml ISec IVP STA (19:34)
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
--- NOTE | 2017-06-07 20:56 | CT ---
EXAM: CT Abdomen and Pelvis Without Intravenous Contrast CLINICAL HISTORY: 51 years old, female; Pain; Abdominal pain TECHNIQUE: Axial computed tomography images of the abdomen and pelvis without intravenous contrast. All CT scans at this facility use one or more dose reduction techniques, viz.: automated exposure control; ma/kV adjustment per patient size (including targeted exams where dose is matched to indication; i.e. head); or iterative reconstruction technique. MIP reconstructed images were created and reviewed. Coronal and sagittal reformatted images were created and reviewed. COMPARISON: CT - ABD PELVIS W/O PO OR IV CONT 2016-11-18 04:39 FINDINGS: Limitations: Lack of intravenous contrast. Lower thorax: Small hiatal hernia. ABDOMEN: Liver: Unremarkable. Gallbladder and bile ducts: Gallbladder not visualized. No ductal dilation. Pancreas: Small calcification or clip about head of pancreas. No ductal dilation. Spleen: No splenomegaly. Adrenals: No mass. Kidneys and ureters: No renal calculi. Too small to characterize lesion within RIGHT kidney. No hydronephrosis. Stomach and bowel: Moderate to large amount of stool within colon. Postsurgical changes of stomach. Duodenal diverticulum. Apparent mild mural/fold thickening vs underdistention of few loops of small bowel. Apparent minimal haziness within small bowel mesentery. Few mildly distended loops of small bowel, likely ileus. Appendix: Normal caliber. No inflammation. PELVIS: Bladder: Unremarkable. No stones. Reproductive: Unremarkable as visualized. ABDOMEN and PELVIS: Intraperitoneal space: No significant fluid collection. No free air. Bones/joints: Degenerative changes and scoliosis of spine. No acute fracture. Soft tissues: Laparotomy scar. Vasculature: Mild atherosclerotic disease. No aneurysm. Lymph nodes: No pathologically enlarged lymph nodes. IMPRESSION: 1. Possible mild enteritis. Clinical correlation is needed. 2. Incidental/non-acute findings are described above.
[2017-06-07 21:41] LABS: HEMATOCRIT 26.1 % (36.0-48.0); MEAN CELL VOLUME 81.1 fl (80.0-105.0); MEAN CORPUSCULAR HEMOGLOBIN 25.5 pg (25.0-35.0); MEAN CORPUSCULAR HGB CONC 31.4 g/dl (31.0-37.0); MEAN PLATELET VOLUME 9.5 fl (7.0-11.0); RED CELL DISTRIBUTION WIDTH 16.7 % (11.5-14.5); WHITE BLOOD COUNT 5.1 10^3/ul (4.5-11.0)
[2017-06-07 21:45] LABS: ALB/GLOB RATIO 1.1 (1.1-1.8); ALKALINE PHOSPHATASE 63 U/L (38-126); ALT/SGPT 41 U/L (7-56); AST/SGOT 23 U/L (14-36); BILIRUBIN,TOTAL 0.5 mg/dL (0.2-1.3); BLOOD UREA NITROGEN 23 mg/dL (7-21); CALCIUM 8.6 mg/dL (8.4-10.5); CARBON DIOXIDE 20 mmol/L (21-33); CHLORIDE 115 mmol/L (98-107); GFR AFRICAN-AMERICAN > 60; GLUCOSE,RANDOM 94 mg/dL (70-110); LIPASE 30 U/L (23-300); POTASSIUM 4.3 mmol/L (3.6-5.0); SODIUM 142 mmol/L (132-148); TOTAL PROTEIN 5.9 g/dL (5.8-8.3)
[2017-06-07 21:56] LABS: URINE BILIRUBIN NEGATIVE (NEGATIVE); URINE BLOOD NEGATIVE (NEGATIVE); URINE GLUCOSE (UA) NEGATIVE (NEGATIVE); URINE KETONE NEGATIVE (NEGATIVE); URINE LEUKOCYTE ESTERASE NEGATIVE Leu/uL (NEGATIVE); URINE PROTEIN NEGATIVE mg/dL (<30 mg/dL); URINE UROBILINOGEN 0.2 E.U./dL (<1 E.U./dL)
[2017-06-07 22:02] LABS: URINE APPEARANCE CLEAR (CLEAR); URINE COLOR YELLOW (YELLOW)
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
[2017-06-08] MEDS: Sodium Chloride 0.9% 1,000 ML IV SCH ×2 (02:26→13:26)
[2017-06-08 05:38] VITALS: BMI 23.0
[2017-06-08 07:37] LABS: BASO # 0.01 K/mm3 (0.0-2.0); BASO % 0.2 % (0.0-3.0); EOS # 0.2 (0.0-0.7); EOS % 5.7 % (1.5-5.0); GRAN # 1.1 (1.4-6.5); GRAN % 26.1 % (50.0-68.0); LYMPH # 2.6 (1.2-3.4); LYMPH % 60.6 % (22.0-35.0); MEAN CELL VOLUME 80.2 fl (80.0-105.0); MEAN CORPUSCULAR HEMOGLOBIN 25.3 pg (25.0-35.0); MEAN CORPUSCULAR HGB CONC 31.5 g/dl (31.0-37.0); MEAN PLATELET VOLUME 9.5 fl (7.0-11.0); MONO # 0.3 (0.1-0.6); MONO % 7.4 % (1.0-6.0); RED CELL DISTRIBUTION WIDTH 16.7 % (11.5-14.5); WHITE BLOOD COUNT 4.2 10^3/ul (4.5-11.0)
[2017-06-08 07:48] LABS: ALKALINE PHOSPHATASE 66 U/L (38-126); ALT/SGPT 36 U/L (7-56); AST/SGOT 20 U/L (14-36); BILIRUBIN,TOTAL 0.3 mg/dL (0.2-1.3); BLOOD UREA NITROGEN 18 mg/dL (7-21); CALCIUM 8.7 mg/dL (8.4-10.5); CARBON DIOXIDE 21 mmol/L (21-33); CHLORIDE 116 mmol/L (98-107); GFR AFRICAN-AMERICAN > 60; GLUCOSE,RANDOM 92 mg/dL (70-110); POTASSIUM 3.8 mmol/L (3.6-5.0); SODIUM 144 mmol/L (132-148); TOTAL PROTEIN 5.4 g/dL (5.8-8.3)
[2017-06-08 07:57] LABS: ALB/GLOB RATIO 1.2 (1.1-1.8)
[2017-06-08] MEDS ORDERED: Apap-Butalbital-Caffeine 325-50-40mg Tab PO ONE (13:40)
[2017-06-08 17:08] LABS: FOLATE 10.3 ng/mL
--- NOTE | 2017-06-08 18:30 | CP.PCM.PN ---
Subjective - Date & Time of Evaluation Date of Evaluation: 06/08/17 Time of Evaluation: 06:15 - Subjective Subjective: CC: L ankle pain Was paged by nursing staff regarding patient c/o L ankle pain. Pt reports that she was walking to the bathroom and she twisted her ankle c/o severe pain. 01/25. Nursing staff was accompanying her when she was walking to the bathroom. They state that patient did not really roll/twist her ankle, and given the patient history she is likely seeking pain medications. Upon physical exam of LLE: FROM, Sensation intact, pulses intact Pt was asking for pain medication for stomach pain and ankle pain. Pt agreeable to elevation of lower ext and cold compresses. Pt has FROM of lower ext therefore xray is not needed. Will reassess as needed. Ismael Alba Eastern Doctor PGY-2 Objective - Vital Signs/Intake and Output Vital Signs (last 24 hours): Temp Pulse Resp BP Pulse Ox 98.2 F 86 20 102/69 97 06/08/17 16:54 06/08/17 17:57 06/08/17 16:54 06/08/17 16:54 06/08/17 16:54 Intake and Output: 06/08/17 06/08/17 06:59 18:59 Intake Total 700 640 Balance 700 640 - Medications Medications: Current Medications Alprazolam (Xanax) 1 mg PO Q8 PRN; Protocol PRN Reason: Anxiety Last Admin: 06/08/17 17:58 Dose: 1 mg Dicyclomine HCl (Bentyl) 20 mg PO QID [facility] Last Admin: 06/08/17 17:58 Dose: 20 mg Sodium Chloride (Sodium Chloride 0.9%) 1,000 mls @ 125 mls/hr IV .Q8H [facility] Last Admin: 06/08/17 13:26 Dose: 125 mls/hr Levetiracetam (Keppra) 500 mg PO BID [facility] Last Admin: 06/08/17 17:58 Dose: 500 mg Lisinopril (Zestril) 10 mg PO DAILY [facility] Last Admin: 06/08/17 09:38 Dose: 10 mg Metoprolol Tartrate (Lopressor) 25 mg PO BID [facility] Last Admin: 06/08/17 17:57 Dose: 25 mg Mirtazapine [Remeron (] 45 Mg (Home Med)) 45 mg PO HS [facility] Ondansetron HCl (Zofran Inj) 4 mg IVP Q6H PRN PRN Reason: Nausea/Vomiting Last Admin: 06/08/17 11:06 Dose: 4 mg Pantoprazole Sodium (Protonix Ec Tab) 40 mg PO 0600 [facility] Quetiapine Fumarate (Seroquel) 100 mg PO HS [facility] PRN Reason: Protocol - Labs Labs: 06/08/17 06:45 06/08/17 06:45
--- NOTE | 2017-06-08 19:13 | CP.PCM.CON ---
<Pop Nieves - Last Filed: 06/08/17 19:05> History of Present Illness - History of Present Illness History of Present Illness: Pop Nieves D.O. PGY-2, GI Consultation Note 51 year old female well known to me from multiple previous admission with a PMH of PUD s/p Billroth 2 gastrojejunostomy and vagotomy with subsequent gastroparesis, HTN, hypertriglyceridemia, seizure disorders on keppra, GERD, migraines, opioid dependence, anemia and an extensive psychiatric history who [place] [facility] [place] complaints of epigastric pain and associated nausea, vomiting and diarrhea for the last 3 days. GI consultation was placed for the aforementioned and patient follows with Dr. Humphrey. Patient was seen and examined at bedside. Patient's vomiting and diarrhea were nonbloody and there have been no more episodes since patient has been here. Diarrhea was a bristol 7. Patient states that she has epigastric pain at this time and is requesting narcotic medications. Patient admits that she did not follow up with the GI motility clinic at [facility] as she has been previously instructed. Otherwise patient denies any recent changes, travel, or sick contacts. PMH: as above PSH: cholecystectomy, vagotomy SH: former smoking history but quit years ago, no tobacco, no illicits, disabled Meds: reviewed Allergies: reviewed Review of Systems - Review of Systems All systems: reviewed and no additional remarkable complaints except - Gastrointestinal Gastrointestinal: Abdominal Pain, Diarrhea, Nausea, Vomiting Past Patient History - Infectious Disease Hx of Infectious Diseases: None - Tetanus Immunizations Tetanus Immunization: Unknown - Past Medical History & Family History Past Medical History?: Yes - Past Social History Smoking Status: Former Smoker - CARDIAC Hx Cardiac Disorders: Yes Hx Hypercholesterolemia: Yes Hx Hypertension: Yes - PULMONARY Hx Asthma: No - NEUROLOGICAL Hx Neurological Disorder: Yes Hx Migraine: Yes Hx Seizures: Yes - HEENT Hx HEENT Problems: No - RENAL Hx Chronic Kidney Disease: No - ENDOCRINE/METABOLIC Hx Endocrine Disorders: Yes Hx Diabetes Mellitus Type 2: Yes Hx Hyperthyroidism: Yes - HEMATOLOGICAL/ONCOLOGICAL Hx Blood Disorders: Yes Hx Anemia: Yes - INTEGUMENTARY Hx Dermatological Problems: No - MUSCULOSKELETAL/RHEUMATOLOGICAL Hx Falls: Yes - GASTROINTESTINAL Hx Gastrointestinal Disorders: Yes Hx Gastroesophageal Reflux: Yes Hx Ulcer: Yes Other/Comment: diverticulosis - GENITOURINARY/GYNECOLOGICAL Hx Genitourinary Disorders: No - PSYCHIATRIC Hx Substance Use: No - SURGICAL HISTORY Hx Cholecystectomy: Yes (2013 w/ vagotomy) Other/Comment: vagotomy? 2013 Patient is poor historian. right ankle sx 1998. right knee ligament tear 2008 - ANESTHESIA Hx Anesthesia: Yes Hx Anesthesia Reactions: No Hx Malignant Hyperthermia: No Meds Allergies/Adverse Reactions: Allergies Allergy/AdvReac Type Severity Reaction Status Date / Time naproxen [From Naprosyn] Allergy Intermediate hives Verified 05/19/17 21:13 Penicillins Allergy Intermediate HIVES Verified 05/31/17 14:23 morphine Allergy ITCHING Verified 05/31/17 14:23 compazine Allergy Intermediate muscle Uncoded 05/19/17 21:13 stiffening - Medications Medications: Current Medications Alprazolam (Xanax) 1 mg PO Q8 PRN; Protocol PRN Reason: Anxiety Last Admin: 06/08/17 17:58 Dose: 1 mg Dicyclomine HCl (Bentyl) 20 mg PO QID [facility] Last Admin: 06/08/17 17:58 Dose: 20 mg Sodium Chloride (Sodium Chloride 0.9%) 1,000 mls @ 125 mls/hr IV .Q8H [facility] Last Admin: 06/08/17 13:26 Dose: 125 mls/hr Levetiracetam (Keppra) 500 mg PO BID [facility] Last Admin: 06/08/17 17:58 Dose: 500 mg Lisinopril (Zestril) 10 mg PO DAILY [facility] Last Admin: 06/08/17 09:38 Dose: 10 mg Metoprolol Tartrate (Lopressor) 25 mg PO BID [facility] Last Admin: 06/08/17 17:57 Dose: 25 mg Mirtazapine [Remeron (] 45 Mg (Home Med)) 45 mg PO HS [facility] Ondansetron HCl (Zofran Inj) 4 mg IVP Q6H PRN PRN Reason: Nausea/Vomiting Last Admin: 06/08/17 11:06 Dose: 4 mg Pantoprazole Sodium (Protonix Ec Tab) 40 mg PO 0600 [facility] Quetiapine Fumarate (Seroquel) 100 mg PO HS [facility] PRN Reason: Protocol Physical Exam - Constitutional Appears: Non-toxic, No Acute Distress - Head Exam Head Exam: NORMOCEPHALIC. absent: ATRAUMATIC - Eye Exam Eye Exam: EOMI, PERRL. absent: Scleral icterus - ENT Exam ENT Exam: Mucous Membranes Moist, Normal Oropharynx - Neck Exam Neck exam: Positive for: Normal Inspection. Negative for: Tenderness - Respiratory Exam Respiratory Exam: Clear to Auscultation Bilateral. absent: Wheezes - Cardiovascular Exam Cardiovascular Exam: RRR, +S1, +S2 - GI/Abdominal Exam GI & Abdominal Exam: Normal Bowel Sounds, Soft, Tenderness (mild epigastric). absent: Distended, Firm, Guarding - Extremities Exam Extremities exam: Negative for: calf tenderness, pedal edema - Neurological Exam Neurological exam: Alert, Oriented x3 - Skin Skin Exam: Dry, Warm Results - Vital Signs Recent Vital Signs: Last Vital Signs Temp 98.2 F 06/08/17 16:54 Pulse 86 06/08/17 17:57 Resp 20 06/08/17 16:54 BP 102/69 06/08/17 16:54 Pulse Ox 97 06/08/17 16:54 - Labs Result Diagrams: 06/08/17 06:45 06/08/17 06:45 Labs: Laboratory Results - last 24 hr 06/08/17 06/08/17 06/08/17 06:45 06:45 06:45 WBC 4.2 L RBC 3.24 L Hgb 8.2 L Hct 26.0 L MCV 80.2 MCH 25.3 MCHC 31.5 RDW 16.7 H Plt Count 254 MPV 9.5 Gran % 26.1 L Lymph % (Auto) 60.6 H [place] % (Auto) 7.4 H Eos % (Auto) 5.7 H Baso % (Auto) 0.2 Gran # 1.10 L Lymph # 2.6 [place] # 0.3 Eos # 0.2 Baso # 0.01 Sodium 144 Potassium 3.8 Chloride 116 H Carbon Dioxide 21 Anion Gap 11 BUN 18 Creatinine 0.9 Est GFR ( Amer) > 60 Est GFR (Non-Af Amer) > 60 Random Glucose 92 Calcium 8.7 Iron TIBC % Saturation Transferrin 282.24 Total Bilirubin 0.3 AST 20 ALT 36 Alkaline Phosphatase 66 Total Protein 5.4 L Albumin 3.0 Globulin 2.5 Albumin/Globulin Ratio 1.2 06/08/17 06:45 WBC RBC Hgb Hct MCV MCH MCHC RDW Plt Count MPV Gran % Lymph % (Auto) [place] % (Auto) Eos % (Auto) Baso % (Auto) Gran # Lymph # [place] # Eos # Baso # Sodium Potassium Chloride Carbon Dioxide Anion Gap BUN Creatinine Est GFR ( Amer) Est GFR (Non-Af Amer) Random Glucose Calcium Iron 25 L TIBC 345.9 % Saturation 7 L Transferrin Total Bilirubin AST ALT Alkaline Phosphatase Total Protein Albumin Globulin Albumin/Globulin Ratio Assessment & Plan - Assessment and Plan (Free Text) Assessment: 51 year old female with a history of PUD s/p Billroth 2 gastrojejunostomy and vagotomy with subsequent gastroparesis and opioid dependence who presented with 3 days of abdominal pain with nausea, vomiting, and diarrhea Plan: Gastroparesis Presentation likely stress induced At this time recommend conservative therapy with supportive measures, IVF Antiemetics PRN Protonix for GI ppx Discussed with patient at length that she should avoid/minimize opioid medication as this exacerbates her condition Ok to advance diet as tolerated Continue 6 small meals per day Patient will need to follow up as outpatient for motility studies Discussed with GI fellow Thank you for the pleasure of participating in the care of this patient. - Date & Time Date: 06/08/17 Time: 07:45 <Gian Humphrey - Last Filed: 06/08/17 20:43> Meds - Medications Medications: Current Medications Alprazolam (Xanax) 1 mg PO Q8 PRN; Protocol PRN Reason: Anxiety Last Admin: 06/08/17 17:58 Dose: 1 mg Dicyclomine HCl (Bentyl) 20 mg PO QID [facility] Last Admin: 06/08/17 17:58 Dose: 20 mg Sodium Chloride (Sodium Chloride 0.9%) 1,000 mls @ 125 mls/hr IV .Q8H [facility] Last Admin: 06/08/17 13:26 Dose: 125 mls/hr Levetiracetam (Keppra) 500 mg PO BID [facility] Last Admin: 06/08/17 17:58 Dose: 500 mg Lisinopril (Zestril) 10 mg PO DAILY [facility] Last Admin: 06/08/17 09:38 Dose: 10 mg Metoprolol Tartrate (Lopressor) 25 mg PO BID [facility] Last Admin: 06/08/17 17:57 Dose: 25 mg Mirtazapine [Remeron (] 45 Mg (Home Med)) 45 mg PO HS [facility] Ondansetron HCl (Zofran Inj) 4 mg IVP Q6H PRN PRN Reason: Nausea/Vomiting Last Admin: 06/08/17 11:06 Dose: 4 mg Pantoprazole Sodium (Protonix Ec Tab) 40 mg PO 0600 [facility] Quetiapine Fumarate (Seroquel) 100 mg PO HS [facility] PRN Reason: Protocol Results - Vital Signs Recent Vital Signs: Last Vital Signs Temp 98.2 F 06/08/17 16:54 Pulse 86 06/08/17 17:57 Resp 20 06/08/17 16:54 BP 102/69 06/08/17 16:54 Pulse Ox 97 06/08/17 16:54 - Labs Result Diagrams: 06/08/17 06:45 06/08/17 06:45 Labs: Laboratory Results - last 24 hr 06/08/17 06/08/17 06/08/17 06:45 06:45 06:45 WBC 4.2 L RBC 3.24 L Hgb 8.2 L Hct 26.0 L MCV 80.2 MCH 25.3 MCHC 31.5 RDW 16.7 H Plt Count 254 MPV 9.5 Gran % 26.1 L Lymph % (Auto) 60.6 H [place] % (Auto) 7.4 H Eos % (Auto) 5.7 H Baso % (Auto) 0.2 Gran # 1.10 L Lymph # 2.6 [place] # 0.3 Eos # 0.2 Baso # 0.01 Sodium 144 Potassium 3.8 Chloride 116 H Carbon Dioxide 21 Anion Gap 11 BUN 18 Creatinine 0.9 Est GFR ( Amer) > 60 Est GFR (Non-Af Amer) > 60 Random Glucose 92 Calcium 8.7 Iron TIBC % Saturation Transferrin 282.24 Total Bilirubin 0.3 AST 20 ALT 36 Alkaline Phosphatase 66 Total Protein 5.4 L Albumin 3.0 Globulin 2.5 Albumin/Globulin Ratio 1.2 06/08/17 06:45 WBC RBC Hgb Hct MCV MCH MCHC RDW Plt Count MPV Gran % Lymph % (Auto) [place] % (Auto) Eos % (Auto) Baso % (Auto) Gran # Lymph # [place] # Eos # Baso # Sodium Potassium Chloride Carbon Dioxide Anion Gap BUN Creatinine Est GFR ( Amer) Est GFR (Non-Af Amer) Random Glucose Calcium Iron 25 L TIBC 345.9 % Saturation 7 L Transferrin Total Bilirubin AST ALT Alkaline Phosphatase Total Protein Albumin Globulin Albumin/Globulin Ratio Attending/Attestation - Attestation I have personally seen and examined this patient.: Yes I have fully participated in the care of the patient.: Yes I have reviewed all pertinent clinical information: Yes Notes (Text): 06/08/17 20:42 51 year old female with h/o PUD s/p BII surgery a/w recurrent abdominal pain, n/ v, diarrhea. 1. Gastroparesis 2. Gastroenteritis Plan: exacerbation of her chronic intermittent symptoms recommend supportive measures with acid suppression and antiemetics as needed -slowly advance diet to liquids / small freq meals and eventually low fat -no need for endoscopy at this time -stool studies to r/o infectious source of diarrhea
[2017-06-08] MEDS: MIRTAZAPINE 45 MG PO SCH (21:49)
[2017-06-09] MEDS: Pantoprazole 40 mg EC Tab PO SCH (06:53)
[2017-06-09 07:19] LABS: BASO # 0.01 K/mm3 (0.0-2.0); BASO % 0.2 % (0.0-3.0); EOS # 0.2 (0.0-0.7); EOS % 3.8 % (1.5-5.0); GRAN # 1.88 (1.4-6.5); GRAN % 39.7 % (50.0-68.0); LYMPH # 2.4 (1.2-3.4); LYMPH % 49.7 % (22.0-35.0); MEAN CELL VOLUME 80.7 fl (80.0-105.0); MEAN CORPUSCULAR HEMOGLOBIN 25.1 pg (25.0-35.0); MEAN CORPUSCULAR HGB CONC 31.1 g/dl (31.0-37.0); MEAN PLATELET VOLUME 9.3 fl (7.0-11.0); MONO # 0.3 (0.1-0.6); MONO % 6.6 % (1.0-6.0); RED CELL DISTRIBUTION WIDTH 16.8 % (11.5-14.5); WHITE BLOOD COUNT 4.7 10^3/ul (4.5-11.0)
[2017-06-09 07:32] LABS: ALB/GLOB RATIO 1.2 (1.1-1.8); ALKALINE PHOSPHATASE 79 U/L (38-126); ALT/SGPT 39 U/L (7-56); AST/SGOT 22 U/L (14-36); BILIRUBIN,TOTAL 0.2 mg/dL (0.2-1.3); BLOOD UREA NITROGEN 16 mg/dL (7-21); CALCIUM 8.5 mg/dL (8.4-10.5); CARBON DIOXIDE 20 mmol/L (21-33); CHLORIDE 116 mmol/L (98-107); GFR AFRICAN-AMERICAN > 60; GLUCOSE,RANDOM 92 mg/dL (70-110); POTASSIUM 3.9 mmol/L (3.6-5.0); SODIUM 146 mmol/L (132-148); TOTAL PROTEIN 5.8 g/dL (5.8-8.3)
--- NOTE | 2017-06-09 08:21 | CP.PCM.PN ---
<Pop Nieves - Last Filed: 06/09/17 13:12> Subjective - Date & Time of Evaluation Date of Evaluation: 06/09/17 Time of Evaluation: 07:25 - Subjective Subjective: Pop Nieves D.O. PGY-2, GI Progress Note 51 year old female with a PMH of PUD s/p Billroth 2 gastrojejunostomy and vagotomy with subsequent gastroparesis who presented with N/V/D for 3 days. Patient was seen and examined at bedside. Patient at this time is doing somewhat better, denies any subsequent vomiting or diarrhea since admission but continues to request pain medication. Of note, patient last night around 6pm had an episode where, while being helped by nursing staff to the bathroom, stated that she rolled her ankle and was in excruciating pain. Patient was evaluated by the house doctor and determined to not have any identifiable injuries. Objective - Vital Signs/Intake and Output Vital Signs (last 24 hours): Temp Pulse Resp BP Pulse Ox 98.2 F 86 20 102/69 97 06/08/17 16:54 06/08/17 17:57 06/08/17 16:54 06/08/17 16:54 06/08/17 16:54 Intake and Output: 06/09/17 06/09/17 06:59 18:59 Intake Total 780 Balance 780 - Medications Medications: Current Medications Alprazolam (Xanax) 1 mg PO Q8 PRN; Protocol PRN Reason: Anxiety Last Admin: 06/09/17 06:53 Dose: 1 mg Dicyclomine HCl (Bentyl) 20 mg PO QID [facility] Last Admin: 06/08/17 21:48 Dose: 20 mg Sodium Chloride (Sodium Chloride 0.9%) 1,000 mls @ 125 mls/hr IV .Q8H [facility] Last Admin: 06/08/17 13:26 Dose: 125 mls/hr Levetiracetam (Keppra) 500 mg PO BID [facility] Last Admin: 06/08/17 17:58 Dose: 500 mg Lisinopril (Zestril) 10 mg PO DAILY [facility] Last Admin: 06/08/17 09:38 Dose: 10 mg Metoprolol Tartrate (Lopressor) 25 mg PO BID [facility] Last Admin: 06/08/17 17:57 Dose: 25 mg Mirtazapine [Remeron (] 45 Mg (Home Med)) 45 mg PO HS [facility] Last Admin: 06/08/17 21:49 Dose: Not Given Ondansetron HCl (Zofran Inj) 4 mg IVP Q6H PRN PRN Reason: Nausea/Vomiting Last Admin: 06/08/17 11:06 Dose: 4 mg Pantoprazole Sodium (Protonix Ec Tab) 40 mg PO 0600 [facility] Last Admin: 06/09/17 06:53 Dose: 40 mg Quetiapine Fumarate (Seroquel) 100 mg PO [facility] PRN Reason: Protocol Last Admin: 06/08/17 21:47 Dose: 100 mg - Labs Labs: 06/09/17 07:10 06/09/17 07:10 - Constitutional Appears: Non-toxic - Head Exam Head Exam: ATRAUMATIC, NORMOCEPHALIC - Eye Exam Eye Exam: EOMI, PERRL. absent: Scleral icterus - ENT Exam ENT Exam: Mucous Membranes Moist, Normal Oropharynx - Neck Exam Neck Exam: Normal Inspection. absent: Tenderness - Respiratory Exam Respiratory Exam: Clear to Ausculation Bilateral. absent: Accessory Muscle Use - Cardiovascular Exam Cardiovascular Exam: RRR - GI/Abdominal Exam GI & Abdominal Exam: Soft, Tenderness (mild epigastric), Normal Bowel Sounds. absent: Distended, Firm, Guarding - Extremities Exam Extremities Exam: absent: Calf Tenderness, Pedal Edema - Neurological Exam Neurological Exam: Alert, Awake, Oriented x3 - Skin Skin Exam: Dry, Warm Assessment and Plan - Assessment and Plan (Free Text) Assessment: 51 year old female with history of PUD s/p BII surgery associated with recurrent abdominal pain, nausea, vomiting and diarrhea Plan: 1. Gastroparesis 2. Gastroenteritis Continue supportive measures Continue PPI Continue PRN antiemetics Stool studies pending Can advance diet slowly to goal of small frequent low fat meals Continue to avoid opioid medications No indication for endoscopy Re-enforced to patient that she will need GI motility studies at [facility] Discussed with fellow and attending physician We will sign off at this time. Thank you for the pleasure of participating in the care of this patient. <Reji Charles MD - Last Filed: 06/09/17 14:35> Objective - Vital Signs/Intake and Output Vital Signs (last 24 hours): Temp Pulse Resp BP Pulse Ox 97.9 F 87 20 104/71 95 06/09/17 07:30 06/09/17 09:48 06/09/17 07:30 06/09/17 09:48 06/09/17 07:30 Intake and Output: 06/09/17 06/09/17 06:59 18:59 Intake Total 780 1680 Balance 780 1680 - Medications Medications: Current Medications Alprazolam (Xanax) 1 mg PO Q8 PRN; Protocol PRN Reason: Anxiety Last Admin: 06/09/17 06:53 Dose: 1 mg Dicyclomine HCl (Bentyl) 20 mg PO QID [facility] Last Admin: 06/09/17 13:35 Dose: Not Given Sodium Chloride (Sodium Chloride 0.9%) 1,000 mls @ 125 mls/hr IV .Q8H [facility] Last Admin: 06/09/17 09:47 Dose: 125 mls/hr Levetiracetam (Keppra) 500 mg PO BID [facility] Last Admin: 06/09/17 09:45 Dose: 500 mg Lisinopril (Zestril) 10 mg PO DAILY [facility] Last Admin: 06/09/17 09:48 Dose: Not Given Metoprolol Tartrate (Lopressor) 25 mg PO BID [facility] Last Admin: 06/09/17 09:48 Dose: Not Given Mirtazapine [Remeron (] 45 Mg (Home Med)) 45 mg PO HS [facility] Last Admin: 06/08/17 21:49 Dose: Not Given Ondansetron HCl (Zofran Inj) 4 mg IVP Q6H PRN PRN Reason: Nausea/Vomiting Last Admin: 06/08/17 11:06 Dose: 4 mg Pantoprazole Sodium (Protonix Ec Tab) 40 mg PO 0600 [facility] Last Admin: 06/09/17 06:53 Dose: 40 mg Quetiapine Fumarate (Seroquel) 100 mg PO HS [facility] PRN Reason: Protocol Last Admin: 06/08/17 21:47 Dose: 100 mg - Labs Labs: 06/09/17 07:10 06/09/17 07:10 Attending/Attestation - Attestation I have personally seen and examined this patient.: Yes I have fully participated in the care of the patient.: Yes I have reviewed all pertinent clinical information, including history, physical exam and plan: Yes Notes (Text): 06/09/17 14:32 Patient seen at bedside on rounds. This is a 51 year old female with h/o PUD s/ p BII surgery a/w recurrent abdominal pain, n/v, diarrhea which has resolved. Her lunch tray at bedside was empty. She was upset that she cant live with her mother now and her 17 yr old daughter is stealing her opioids. Her GI complains seem to have resolved. she needs motility studies with DNJ. She should continue prokinetics and PPI and probiotics. Lifestyle modifications with small frequent meals and low fiber and low fat diet. Will sign off now. Thank you for letting us participate in the care of your patient.
--- NOTE | 2017-06-09 09:24 | RAD ---
PROCEDURE: Left Ankle Radiographs. HISTORY: ?mechanical fall COMPARISON: None FINDINGS: BONES: Normal. No fracture. JOINTS: Normal. No osteoarthritis. Ankle mortise maintained. Talar dome intact SOFT TISSUES: Normal. OTHER FINDINGS: None. IMPRESSION: No acute findings related to/accounting for the clinical presentation.
[2017-06-09] MEDS: Sodium Chloride 0.9% 1,000 ML IV SCH ×2 (09:47→17:30)
--- NOTE | 2017-06-09 12:37 | CP.PCM.PN ---
<Fritz Yañez - Last Filed: 06/09/17 15:11> Subjective - Date & Time of Evaluation Date of Evaluation: 06/09/17 Time of Evaluation: 09:35 - Subjective Subjective: Patient seen and examined at bedside. Per nursing no acute events occurred overnight. The patient is reporting diffuse abdominal pain that has yet to be relieved. The patient denies shortness of breath, lightheadedness, dizziness, changes in vision, syncopal episodes, diarrhea, fevers, chills, or any other complaints. Objective - Vital Signs/Intake and Output Vital Signs (last 24 hours): Temp Pulse Resp BP Pulse Ox 97.9 F 87 20 104/71 95 06/09/17 07:30 06/09/17 09:48 06/09/17 07:30 06/09/17 09:48 06/09/17 07:30 Intake and Output: 06/09/17 06/09/17 06:59 18:59 Intake Total 780 Balance 780 - Medications Medications: Current Medications Alprazolam (Xanax) 1 mg PO Q8 PRN; Protocol PRN Reason: Anxiety Last Admin: 06/09/17 06:53 Dose: 1 mg Dicyclomine HCl (Bentyl) 20 mg PO QID REPLACED BY [facility] Last Admin: 06/09/17 09:45 Dose: 20 mg Sodium Chloride (Sodium Chloride 0.9%) 1,000 mls @ 125 mls/hr IV .Q8H REPLACED BY [facility] Last Admin: 06/09/17 09:47 Dose: 125 mls/hr Levetiracetam (Keppra) 500 mg PO BID REPLACED BY [facility] Last Admin: 06/09/17 09:45 Dose: 500 mg Lisinopril (Zestril) 10 mg PO DAILY REPLACED BY [facility] Last Admin: 06/09/17 09:48 Dose: Not Given Metoprolol Tartrate (Lopressor) 25 mg PO BID REPLACED BY [facility] Last Admin: 06/09/17 09:48 Dose: Not Given Mirtazapine [Remeron (] 45 Mg (Home Med)) 45 mg PO HS REPLACED BY [facility] Last Admin: 06/08/17 21:49 Dose: Not Given Ondansetron HCl (Zofran Inj) 4 mg IVP Q6H PRN PRN Reason: Nausea/Vomiting Last Admin: 06/08/17 11:06 Dose: 4 mg Pantoprazole Sodium (Protonix Ec Tab) 40 mg PO 0600 REPLACED BY [facility] Last Admin: 06/09/17 06:53 Dose: 40 mg Quetiapine Fumarate (Seroquel) 100 mg PO HS RADHA PRN Reason: Protocol Last Admin: 06/08/17 21:47 Dose: 100 mg - Labs Labs: 06/09/17 07:10 06/09/17 07:10 - Head Exam Head Exam: ATRAUMATIC, NORMAL INSPECTION, NORMOCEPHALIC - Eye Exam Eye Exam: EOMI, Normal appearance, PERRL. absent: Periorbital tenderness Pupil Exam: NORMAL ACCOMODATION, PERRL. absent: Irregular, Unequal - ENT Exam ENT Exam: Mucous Membranes Moist, Normal Exam, Normal Oropharynx - Neck Exam Neck Exam: Full ROM, Normal Inspection. absent: Lymphadenopathy, Thyromegaly - Respiratory Exam Respiratory Exam: Clear to Ausculation Bilateral, NORMAL BREATHING PATTERN. absent: Chest Wall Tenderness, Prolonged Expiratory Phase, Respiratory Distress - Cardiovascular Exam Cardiovascular Exam: REGULAR RHYTHM, RRR, +S1, +S2. absent: Gallop, Rubs - GI/Abdominal Exam GI & Abdominal Exam: Soft, Normal Bowel Sounds. absent: Tenderness, Hyperactive Bowel Sounds - Extremities Exam Extremities Exam: Full ROM, Normal Inspection. absent: Joint Swelling, Pedal Edema, Tenderness - Neurological Exam Neurological Exam: Alert, Awake, Normal Gait, Oriented x3 - Psychiatric Exam Psychiatric exam: Normal Affect, Normal Mood - Skin Skin Exam: Dry, Intact, Normal Color Assessment and Plan - Assessment and Plan (Free Text) Assessment: 51yo F with PMH gastroparesis, HTN, hypertriglyceridemia, seizure disorders on keppra, GERD, migraines, polysubstance abuse, anemia and an extensive psych history who presents with episodes of epigastric pain a/w n/v/d x3 days likely 2/2 gastroparesis vs partial ileus vs enteritis Plan: 1. abdominal pain and n/v/d - CT abdomen showed possible mild enteritis - afebrile with no leukocytosis - lipase wnl - LFTs wnl - UA negative -continue zofran PRN -continue Bentyl QID - avoid opiates to not worsen gastroparesis -GI consulted. Rec's appreciated. -Strongly advised patient to follow up with motility clinic at [facility]. Patient resistant to follow instructions. Will re-enforce during next examination. 2. Chest pain -Patient transferred to remote telemetry. -EKG done showed flipped T waves and possible inferior infarct by Client Success Manager. -Echo ordered. Will f/u with results. -TSH, Lipid panel and Hemoglobin A1C ordered. Will f/u with results. -ASA 81mg given. 3. Hx Seizures - cont Keppra 500mg BID - seizure precautions 4. Hx HTN - continue Lisinopril and Lopressor 5. Hx Psych disorders - continue Remeron and Seroquel 6. Hx polysubstance abuse - Urine drug screen positive for barbituates upon admission. - patient was found to have Seroquel, xanax, percocet in her purse. Medical unit made aware and pills were taken from the patient. Patient Xanax held for now. Will reassess tomorrow. PTX/SCDs <Reinaldo Eng - Last Filed: 06/09/17 17:22> Objective - Vital Signs/Intake and Output Vital Signs (last 24 hours): Temp Pulse Resp BP Pulse Ox 97.9 F 87 20 104/71 95 06/09/17 07:30 06/09/17 09:48 06/09/17 07:30 06/09/17 09:48 06/09/17 07:30 - Medications Medications: Current Medications Acetaminophen/Butalbital/Caffeine (Fioricet) 1 tab PO Q6 PRN PRN Reason: Headache Alprazolam (Xanax) 1 mg PO Q8 PRN; Protocol PRN Reason: Anxiety Last Admin: 06/09/17 06:53 Dose: 1 mg Dicyclomine HCl (Bentyl) 20 mg PO QID REPLACED BY [facility] Last Admin: 06/09/17 13:35 Dose: Not Given Sodium Chloride (Sodium Chloride 0.9%) 1,000 mls @ 125 mls/hr IV .Q8H REPLACED BY [facility] Last Admin: 06/09/17 09:47 Dose: 125 mls/hr Levetiracetam (Keppra) 500 mg PO BID REPLACED BY [facility] Last Admin: 06/09/17 09:45 Dose: 500 mg Lisinopril (Zestril) 10 mg PO DAILY REPLACED BY [facility] Last Admin: 06/09/17 09:48 Dose: Not Given Metoprolol Tartrate (Lopressor) 25 mg PO BID REPLACED BY [facility] Last Admin: 06/09/17 09:48 Dose: Not Given Mirtazapine [Remeron (] 45 Mg (Home Med)) 45 mg PO HS REPLACED BY [facility] Last Admin: 06/08/17 21:49 Dose: Not Given Ondansetron HCl (Zofran Inj) 4 mg IVP Q6H PRN PRN Reason: Nausea/Vomiting Last Admin: 06/08/17 11:06 Dose: 4 mg Pantoprazole Sodium (Protonix Ec Tab) 40 mg PO 0600 REPLACED BY [facility] Last Admin: 06/09/17 06:53 Dose: 40 mg Quetiapine Fumarate (Seroquel) 100 mg PO HS REPLACED BY [facility] PRN Reason: Protocol Last Admin: 06/08/17 21:47 Dose: 100 mg Attending/Attestation - Attestation I have personally seen and examined this patient.: Yes I have fully participated in the care of the patient.: Yes I have reviewed all pertinent clinical information, including history, physical exam and plan: Yes Notes (Text): I have seen and examined the patient at bedside. Agree with the above note with the following additions/ exceptions: Briefly this is 51 year old female with history of gastroparesis, HTN, hypertriglyceridemia, seizure disorders on keppra , GERD, migraines, polysubstance abuse, anemia , depression and bipolar disorder who was admitted for evaluation of N,V, D, abdominal pain most likely due to gastroenteritis vs gastroparesis. She was given IVF. Diet was slowly advanced. Patient continues to express multiple complaints however she appears comfortable. Patient continues to express pain medication seeking behavior. Explained to the patient to avoid opiates as this will worsen gastroparesis. GI consult appreciated. Patient needs to follow up with motility clinic at [facility]. Later today she started to complain of chest pain. EKG changes were noted. Trop is negative. Will start aspirin. Although patient is allergic to naprosyn (hives ) and there is a chance of cross reactivity, aspirin was given as she was able to tolerate aspirin in her past hospitalization. Will consult cardiology. Patient also expressed that she is depressed however denies suicidal ideation. Discussed with Dr Camacho who will see the patient tomorrow. Prognosis is guarded as patient is very non compliant with management. Upon discharge patient will follow up with Dr Thomas and Pain management doctor in [place]. Dr Reinaldo Eng
--- NOTE | 2017-06-09 13:41 | CARD ---
APPROVED REPORT EKG Measurement Heart [id number] <Conclusion> Normal sinus rhythm Possible IMI, new since prior ECG 05/31/17
[2017-06-09] MEDS: Apap-Butalbital-Caffeine 325-50-40mg Tab PO PRN ×2 (17:31→23:51)
[2017-06-09] MEDS ORDERED: MIRTAZAPINE 45 MG PO SCH (23:27)
--- NOTE | 2017-06-10 00:17 | CON ---
DATE: 06/09/2017 LOCATION: The patient is in room 276, bed 2. REASON FOR CONSULTATION: Abdominal and chest pain. HISTORY OF PRESENT ILLNESS: The patient is a 51-year-old female known to have hypertension, seizure disorder, GERD, migraine, polysubstance abuse, anemia, psychiatric problems, presented with episode of upper abdominal pain and sometime it goes into the lower sternal area with no relation to position. The patient denies any history of prior exertional chest pain, shortness of breath or PND. PAST MEDICAL HISTORY: Positive for cholecystectomy, right knee and ankle surgery, vagotomy in 2013 at [facility]. ALLERGIES: THE PATIENT STATES SHE IS ALLERGIC TO PENICILLIN, NAPROSYN, AND MORPHINE. PERSONAL HISTORY: Ex-smoker. Denies drinking. In the past has polysubstance abuse. HOME MEDICATIONS: Included Keppra 500 mg b.i.d., Seroquel 100 mg at bedtime, Protonix 40 daily, Zofran 4 mg daily, Remeron 45 mg at bedtime, Lopressor 25 b.i.d., lisinopril 10 mg p.o. daily, Fioricet one tablet p.o. q. 8 hours, and Xanax 1 mg p.o. t.i.d. FAMILY HISTORY: Not significant. PHYSICAL EXAMINATION VITAL SIGNS: Blood pressure is 104/71, respirations 20, pulse 87, and the patient is afebrile. HEENT: Head is normocephalic. Eyes, pupils normal. Conjunctivae slightly pale. NECK: JVP low. Carotids equal. THORAX: AP diameter normal. LUNGS: Clear. CARDIOVASCULAR: S1 and S2. ABDOMEN: Soft and nontender. No organomegaly. Bowel sounds normal. The patient has tenderness in the epigastric area. EXTREMITIES: No clubbing. No cyanosis. LABORATORY DATA: WBC 4.7, hemoglobin 8.7, hematocrit 28.0, and platelets 255. Sodium 146, potassium 3.9, BUN 16, and creatinine 0.9. Troponin x2 negative. Total troponin 5.8 and albumin 3.1. DIAGNOSES: Abdominal pain, gastroparesis, hypertension, hypertriglyceridemia, seizure disorder, gastroesophageal reflux disease, migraine, polysubstance abuse, anemia, and psychological problems. PLAN: The patient had an echo on 05/13/2016, which showed normal LV function, normal LV size, ejection fraction showed normal 65%, RVSP 33 mmHg. The patient is on Keppra 500 mg b.i.d., metoprolol tartrate 25 b.i.d., Remeron 45 mg p.o. at bedtime, Protonix 40 daily, Seroquel 100 mg p.o. at bedtime, and lisinopril 10 mg daily. The patient previously when I saw her in the past, the patient was advised to do stress test as an outpatient, but she never did it. So, I again told her today that when she get better with her GI symptoms, she should come as an outpatient for nuclear stress test. Echo was mentioned already done on 05/13/2016, which was normal. We will follow with you. Vikram Horan MD
[2017-06-10] MEDS: MIRTAZAPINE 45 MG PO SCH (00:35)
[2017-06-10] MEDS: Sodium Chloride 0.9% 1,000 ML IV SCH (01:15)
[2017-06-10 06:18] VITALS: O2SAT 97
[2017-06-10] MEDS: Pantoprazole 40 mg EC Tab PO SCH ×2 (07:00→07:06)
[2017-06-10] MEDS: Apap-Butalbital-Caffeine 325-50-40mg Tab PO PRN (08:34)
[2017-06-10 09:13] LABS: BASO # 0.02 K/mm3 (0.0-2.0); BASO % 0.4 % (0.0-3.0); EOS # 0.2 (0.0-0.7); EOS % 3.9 % (1.5-5.0); GRAN # 1.97 (1.4-6.5); LYMPH # 2.2 (1.2-3.4); LYMPH % 46.8 % (22.0-35.0); MEAN CELL VOLUME 80.4 fl (80.0-105.0); MEAN CORPUSCULAR HEMOGLOBIN 25.2 pg (25.0-35.0); MEAN CORPUSCULAR HGB CONC 31.3 g/dl (31.0-37.0); MEAN PLATELET VOLUME 9.2 fl (7.0-11.0); MONO # 0.3 (0.1-0.6); MONO % 5.9 % (1.0-6.0); RED CELL DISTRIBUTION WIDTH 16.2 % (11.5-14.5); WHITE BLOOD COUNT 4.6 10^3/ul (4.5-11.0)
[2017-06-10 09:23] LABS: ALB/GLOB RATIO 1.2 (1.1-1.8); ALKALINE PHOSPHATASE 74 U/L (38-126); ALT/SGPT 42 U/L (7-56); AST/SGOT 23 U/L (14-36); BILIRUBIN,TOTAL 0.3 mg/dL (0.2-1.3); BLOOD UREA NITROGEN 17 mg/dL (7-21); CALCIUM 8.7 mg/dL (8.4-10.5); CARBON DIOXIDE 25 mmol/L (21-33); CHLORIDE 113 mmol/L (98-107); CHOLESTEROL 138 mg/dL (130-200); GFR AFRICAN-AMERICAN > 60; GLUCOSE,RANDOM 101 mg/dL (70-110); POTASSIUM 4.1 mmol/L (3.6-5.0); SODIUM 144 mmol/L (132-148); TOTAL PROTEIN 5.8 g/dL (5.8-8.3)
--- NOTE | 2017-06-10 11:16 | CP.PCM.DIS ---
<[place] - Last Filed: 06/10/17 15:27> Provider - Provider Date of Admission: 06/09/17 14:17 Attending physician: Reinaldo Eng MD Primary care physician: Lucien Okeefe MD Time Spent in preparation of Discharge (in minutes): 45 Hospital Course - Lab Results Lab Results: Most Recent Lab Values WBC 4.6 10^3/ul (4.5-11.0) 06/10/17 09:00 RBC 3.73 10^6/uL (3.5-6.1) 06/10/17 09:00 Hgb 9.4 g/dL (12.0-16.0) L 06/10/17 09:00 Hct 30.0 % (36.0-48.0) L 06/10/17 09:00 MCV 80.4 fl (80.0-105.0) 06/10/17 09:00 MCH 25.2 pg (25.0-35.0) 06/10/17 09:00 MCHC 31.3 g/dl (31.0-37.0) 06/10/17 09:00 RDW 16.2 % (11.5-14.5) H 06/10/17 09:00 Plt Count 248 10^3/uL (120.0-450.0) 06/10/17 09:00 MPV 9.2 fl (7.0-11.0) 06/10/17 09:00 Gran % 43.0 % (50.0-68.0) L 06/10/17 09:00 Lymph % (Auto) 46.8 % (22.0-35.0) H 06/10/17 09:00 [place] % (Auto) 5.9 % (1.0-6.0) 06/10/17 09:00 Eos % (Auto) 3.9 % (1.5-5.0) 06/10/17 09:00 Baso % (Auto) 0.4 % (0.0-3.0) 06/10/17 09:00 Gran # 1.97 (1.4-6.5) 06/10/17 09:00 Lymph # 2.2 (1.2-3.4) 06/10/17 09:00 [place] # 0.3 (0.1-0.6) 06/10/17 09:00 Eos # 0.2 (0.0-0.7) 06/10/17 09:00 Baso # 0.02 K/mm3 (0.0-2.0) 06/10/17 09:00 Sodium 144 mmol/L (132-148) 06/10/17 09:00 Potassium 4.1 mmol/L (3.6-5.0) 06/10/17 09:00 Chloride 113 mmol/L (98-107) H 06/10/17 09:00 Carbon Dioxide 25 mmol/L (21-33) 06/10/17 09:00 Anion Gap 11 (10-20) 06/10/17 09:00 BUN 17 mg/dL (7-21) 06/10/17 09:00 Creatinine 0.8 mg/dl (0.7-1.2) 06/10/17 09:00 Est GFR ( Amer) > 60 06/10/17 09:00 Est GFR (Non-Af Amer) > 60 06/10/17 09:00 Random Glucose 101 mg/dL (70-110) 06/10/17 09:00 Calcium 8.7 mg/dL (8.4-10.5) 06/10/17 09:00 Iron 24 ug/dL (45-180) L 06/10/17 09:00 TIBC 359.1 ug/dL (250-450) 06/10/17 09:00 % Saturation 7 (20-55) L 06/10/17 09:00 Transferrin 282.24 mg/dL (206-381) 06/08/17 06:45 Ferritin 5.9 ng/mL 06/07/17 21:12 Total Bilirubin 0.3 mg/dL (0.2-1.3) 06/10/17 09:00 AST 23 U/L (14-36) 06/10/17 09:00 ALT 42 U/L (7-56) 06/10/17 09:00 Alkaline Phosphatase 74 U/L (38-126) 06/10/17 09:00 Troponin I < 0.01 ng/mL 06/09/17 18:25 Total Protein 5.8 g/dL (5.8-8.3) 06/10/17 09:00 Albumin 3.1 g/dL (3.0-4.8) 06/10/17 09:00 Globulin 2.6 gm/dL 06/10/17 09:00 Albumin/Globulin Ratio 1.2 (1.1-1.8) 06/10/17 09:00 Triglycerides 151 mg/dL (35-160) 06/10/17 09:00 Cholesterol 138 mg/dL (130-200) 06/10/17 09:00 LDL Cholesterol Direct 57 mg/dL (0-129) 06/10/17 09:00 HDL Cholesterol 59 mg/dL (29-60) 06/10/17 09:00 Lipase 30 U/L (23-300) 06/07/17 21:12 Vitamin B12 286 pg/mL (239-931) 06/07/17 21:12 Folate 10.3 ng/mL 06/07/17 21:12 TSH 3rd Generation 2.23 mIU/mL (0.46-4.68) 06/10/17 09:00 Urine Color Yellow (YELLOW) 06/07/17 21:45 Urine Appearance Clear (CLEAR) 06/07/17 21:45 Urine pH 6.0 (4.7-8.0) 06/07/17 21:45 Ur Specific [place] 1.025 (1.005-1.035) 06/07/17 21:45 Urine Protein Negative mg/dL (<30 mg/dL) 06/07/17 21:45 Urine Glucose (UA) Negative mg/dL (NEGATIVE) 06/07/17 21:45 Urine Ketones Negative mg/dL (NEGATIVE) 06/07/17 21:45 Urine Blood Negative (NEGATIVE) 06/07/17 21:45 Urine Nitrate Negative (NEGATIVE) 06/07/17 21:45 Urine Bilirubin Negative (NEGATIVE) 06/07/17 21:45 Urine Urobilinogen 0.2 E.U./dL (<1 E.U./dL) 06/07/17 21:45 Ur Leukocyte Esterase Negative William/uL (NEGATIVE) 06/07/17 21:45 Urine Opiates Screen Negative (NEGATIVE) 06/09/17 10:30 Urine Methadone Screen Negative (NEGATIVE) 06/09/17 10:30 Ur Barbiturates Screen Positive (NEGATIVE) H 06/09/17 10:30 Ur Phencyclidine Scrn Negative (NEGATIVE) 06/09/17 10:30 Ur Amphetamines Screen Negative (NEGATIVE) 06/09/17 10:30 U Benzodiazepines Scrn Positive (NEGATIVE) 06/09/17 10:30 U Oth Cocaine Metabols Negative (NEGATIVE) 06/09/17 10:30 U Cannabinoids Screen Negative (NEGATIVE) 06/09/17 10:30 - Hospital Course Hospital Course: Ms. Ortiz is a 51 year old female with PMH gastroparesis, HTN, hypertriglyceridemia, seizure disorders on keppra, GERD, migraines, poly- substance abuse, anemia and an extensive psych history who presents with episodes of epi-gastric pain associated with nausea, vomiting, and diarrhea for the past three days. Patient states that he pain has become intolerable which prompted her to come in to ED. She denied radiation of pain and it is intermittent. She denies non-bilious, non-bloody vomit or stools. She was recently hospitalized 3 weeks ago for the same problem however she denies following up with GI motility clinic at [facility]. Patient denies weight loss, new foods, recent travel, recent illness, sick contacts, fevers/chills, chest pain, weakness. 12-pt ROS was reviewed and is otherwise unremarkable. In ED, the patient was given Dilaudid 2mg x1 for pain, Zofran and NS 1L bolus. when seen, pt was requesting Dilaudid, but it was explained to her that it would exacerbate her gastroparesis and that her pain would be managed in alternative way. While admitted the patient was seen by Gastroenterology, Cardiology and Psychiatry. The patient was seen by Gastroenterology who recommended supportive measures with acid suppression and anti-emetics as needed and subsequently signed off. They also advised to slowly advance diet to liquids and there was no endoscopy at this time. The patient continued to complain of abdominal pain and repeatedly asked for intravenous Dialuadid or Morphine while admitted. It was reiterated multiple times that it exacerbate her symptoms. The patient then reported that she fell while being assisted by a nurse. The patient was examined and a ankle xray was done that was negative. The patient was then found to have her own personal prescriptions on her that consisted of Xanax, Percocet, Fiorcet and Seroquel. After the patient's medications were confiscated the patient complained of new onset chest pain. As a result a new EKG, troponins and Cardiology were consulted. The ekg showed some new ekg changes in the inferior leads. Troponins were negative and Cardiology advised the patient to follow up with outpatient stress test. Patient was seen and examined at bedside this morning. Patient was discharged with a prescription for the outpatient stress test recommended by Cardiology and the number to [facility] ([phone]) for help with stress and anxiety. Discharge Exam - Head Exam Head Exam: ATRAUMATIC, NORMAL INSPECTION, NORMOCEPHALIC - Eye Exam Eye Exam: EOMI, Normal appearance, PERRL Pupil Exam: NORMAL ACCOMODATION, PERRL. absent: Irregular, Unequal - ENT Exam ENT Exam: Mucous Membranes Moist, Normal Oropharynx - Respiratory Exam Respiratory Exam: Clear to PA & Lateral, NORMAL BREATHING PATTERN, UNREMARKABLE. absent: Rales, Rhonchi, Stridor - Cardiovascular Exam Cardiovascular Exam: REGULAR RHYTHM, +S1, +S2. absent: Gallop, Rubs - GI/Abdominal Exam GI & Abdominal Exam: Normal Bowel Sounds, Soft, Unremarkable - Back Exam Back exam: NORMAL INSPECTION. absent: CVA tenderness (L), CVA tenderness (R), paraspinal tenderness - Neurological Exam Neurological exam: Alert, CN II-XII Intact, Oriented x3 - Psychiatric Exam Psychiatric exam: Normal Affect, Normal Mood - Skin Skin Exam: Dry, Intact, Normal Color Discharge Plan - Follow Up Plan Condition: STABLE Disposition: HOME/ ROUTINE Instructions: Acute Abdominal Pain (DC), Fall Prevention (DC) Additional Instructions: 1.Patient strongly advised to follow up with GI motility clinic in [facility]. 2.Patient strongly advised to follow up with outpatient stress test with Dr. Horan. Patient given prescription for OP stress test. 3.Patient strongly advised to return to emergency department for any new or worsening symptoms. Referrals: Lucien Okeefe MD [Primary Care Provider] - <Reinaldo Eng - Last Filed: 06/10/17 17:13> Provider - Provider Date of Admission: 06/09/17 14:17 Attending physician: Reinaldo Eng MD Primary care physician: Lucien Okeefe MD Hospital Course - Lab Results Lab Results: Most Recent Lab Values WBC 4.6 10^3/ul (4.5-11.0) 06/10/17 09:00 RBC 3.73 10^6/uL (3.5-6.1) 06/10/17 09:00 Hgb 9.4 g/dL (12.0-16.0) L 06/10/17 09:00 Hct 30.0 % (36.0-48.0) L 06/10/17 09:00 MCV 80.4 fl (80.0-105.0) 06/10/17 09:00 MCH 25.2 pg (25.0-35.0) 06/10/17 09:00 MCHC 31.3 g/dl (31.0-37.0) 06/10/17 09:00 RDW 16.2 % (11.5-14.5) H 06/10/17 09:00 Plt Count 248 10^3/uL (120.0-450.0) 06/10/17 09:00 MPV 9.2 fl (7.0-11.0) 06/10/17 09:00 Gran % 43.0 % (50.0-68.0) L 06/10/17 09:00 Lymph % (Auto) 46.8 % (22.0-35.0) H 06/10/17 09:00 [place] % (Auto) 5.9 % (1.0-6.0) 06/10/17 09:00 Eos % (Auto) 3.9 % (1.5-5.0) 06/10/17 09:00 Baso % (Auto) 0.4 % (0.0-3.0) 06/10/17 09:00 Gran # 1.97 (1.4-6.5) 06/10/17 09:00 Lymph # 2.2 (1.2-3.4) 06/10/17 09:00 [place] # 0.3 (0.1-0.6) 06/10/17 09:00 Eos # 0.2 (0.0-0.7) 06/10/17 09:00 Baso # 0.02 K/mm3 (0.0-2.0) 06/10/17 09:00 Sodium 144 mmol/L (132-148) 06/10/17 09:00 Potassium 4.1 mmol/L (3.6-5.0) 06/10/17 09:00 Chloride 113 mmol/L (98-107) H 06/10/17 09:00 Carbon Dioxide 25 mmol/L (21-33) 06/10/17 09:00 Anion Gap 11 (10-20) 06/10/17 09:00 BUN 17 mg/dL (7-21) 06/10/17 09:00 Creatinine 0.8 mg/dl (0.7-1.2) 06/10/17 09:00 Est GFR ( Amer) > 60 06/10/17 09:00 Est GFR (Non-Af Amer) > 60 06/10/17 09:00 Random Glucose 101 mg/dL (70-110) 06/10/17 09:00 Hemoglobin A1c 6.6 % (4.2-6.5) H 06/10/17 09:00 Calcium 8.7 mg/dL (8.4-10.5) 06/10/17 09:00 Iron 24 ug/dL (45-180) L 06/10/17 09:00 TIBC 359.1 ug/dL (250-450) 06/10/17 09:00 % Saturation 7 (20-55) L 06/10/17 09:00 Transferrin 282.24 mg/dL (206-381) 06/08/17 06:45 Ferritin 5.9 ng/mL 06/07/17 21:12 Total Bilirubin 0.3 mg/dL (0.2-1.3) 06/10/17 09:00 AST 23 U/L (14-36) 06/10/17 09:00 ALT 42 U/L (7-56) 06/10/17 09:00 Alkaline Phosphatase 74 U/L (38-126) 06/10/17 09:00 Troponin I < 0.01 ng/mL 06/09/17 18:25 Total Protein 5.8 g/dL (5.8-8.3) 06/10/17 09:00 Albumin 3.1 g/dL (3.0-4.8) 06/10/17 09:00 Globulin 2.6 gm/dL 06/10/17 09:00 Albumin/Globulin Ratio 1.2 (1.1-1.8) 06/10/17 09:00 Triglycerides 151 mg/dL (35-160) 06/10/17 09:00 Cholesterol 138 mg/dL (130-200) 06/10/17 09:00 LDL Cholesterol Direct 57 mg/dL (0-129) 06/10/17 09:00 HDL Cholesterol 59 mg/dL (29-60) 06/10/17 09:00 Lipase 30 U/L (23-300) 06/07/17 21:12 Vitamin B12 286 pg/mL (239-931) 06/07/17 21:12 Folate 10.3 ng/mL 06/07/17 21:12 TSH 3rd Generation 2.23 mIU/mL (0.46-4.68) 06/10/17 09:00 Urine Color Yellow (YELLOW) 06/07/17 21:45 Urine Appearance Clear (CLEAR) 06/07/17 21:45 Urine pH 6.0 (4.7-8.0) 06/07/17 21:45 Ur Specific [place] 1.025 (1.005-1.035) 06/07/17 21:45 Urine Protein Negative mg/dL (<30 mg/dL) 06/07/17 21:45 Urine Glucose (UA) Negative mg/dL (NEGATIVE) 06/07/17 21:45 Urine Ketones Negative mg/dL (NEGATIVE) 06/07/17 21:45 Urine Blood Negative (NEGATIVE) 06/07/17 21:45 Urine Nitrate Negative (NEGATIVE) 06/07/17 21:45 Urine Bilirubin Negative (NEGATIVE) 06/07/17 21:45 Urine Urobilinogen 0.2 E.U./dL (<1 E.U./dL) 06/07/17 21:45 Ur Leukocyte Esterase Negative William/uL (NEGATIVE) 06/07/17 21:45 Urine Opiates Screen Negative (NEGATIVE) 06/09/17 10:30 Urine Methadone Screen Negative (NEGATIVE) 06/09/17 10:30 Ur Barbiturates Screen Positive (NEGATIVE) H 06/09/17 10:30 Ur Phencyclidine Scrn Negative (NEGATIVE) 06/09/17 10:30 Ur Amphetamines Screen Negative (NEGATIVE) 06/09/17 10:30 U Benzodiazepines Scrn Positive (NEGATIVE) 06/09/17 10:30 U Oth Cocaine Metabols Negative (NEGATIVE) 06/09/17 10:30 U Cannabinoids Screen Negative (NEGATIVE) 06/09/17 10:30 Attending/Attestation - Attestation I have personally seen and examined this patient.: Yes I have fully participated in the care of the patient.: Yes I have reviewed all pertinent clinical information, including history, physical exam and plan: Yes Notes (Text): I have seen and examined the patient at bedside. Agree with the above note with the following additions/ exceptions: Briefly this is 51 year old female with history of gastroparesis, HTN, hypertriglyceridemia, seizure disorders on keppra , GERD, migraines, polysubstance abuse, anemia, depression and opioid addiction who was admitted for evaluation of N,V, D, abdominal pain most likely due to gastroenteritis vs gastroparesis. She was given IVF. Diet was slowly advanced and she was able to tolerate that. Patient continues to express multiple complaints however she appears comfortable. Patient continues to express pain medication seeking behavior. Explained to the patient to avoid opiates as this will worsen gastroparesis. GI consult appreciated. Patient needs to follow up with motility clinic at [facility]. Patient also complained of chest pain for a brief period of time yesterday which was resolved. EKG changes were noted. Trop is negative. Continue aspirin. Although patient is allergic to naprosyn (hives) and there is a chance of cross reactivity, aspirin was given as she was able to tolerate aspirin in her past hospitalization. Cardiology consult appreciated. Recommended stress test as an outpatient. Patient also expressed that she is depressed however denies suicidal ideation. Discussed with Dr Camacho who saw the pateint today. She advised the patient to follow up with outpatient psychiatrist. Counselling was provided. Prognosis is guarded as patient is very non compliant with management. PT evaluation was ordered but patient refused. Upon discharge patient will follow up with PMD Dr Muhamamd, [facility] intervention services and Pain management doctor in [place]. Dr Reinaldo Eng
[2017-06-10 11:56] VITALS: BP 132/93; PULSE 74; RESP 18; TEMP 98.3
--- NOTE | 2017-06-10 16:30 | CON ---
DATE: HISTORY OF PRESENT ILLNESS: The patient is a 51-year-old female with reported history of borderline personality disorder addiction to pain killers as well as benzodiazepines. The patient has multiple admissions to the medical floor as well as to the psychiatric inpatient unit. The patient also has antisocial personality disorder. The patient is refusing medications while she is on the medical site. The patient was admitted on the medical site for evaluation of abdominal discomfort. The patient also has multiple medical issues including hypertension, seizure disorder, gastroparesis, diabetes, GERD, and migraines. Psych consult was called for evaluation of possible depressive symptoms. The patient is very well known to this tech writer from the multiple admissions to the psychiatric inpatient unit. Last time, the patient was discharged from the psychiatric inpatient unit on 03/2017 because the patient was not participating in treatment plan and was snorting pain killers on the psychiatric inpatient unit. The patient reported that she is stressed out with her family as usual. The patient denied any thoughts of killing herself or others. Last admission, the patient wanted to be followed up with psychiatrist, Dr. Lamin Dorado, but the patient said that she decided not to go and see him. The patient is still looking for psychiatrist in the community. The patient denied hearing voices, denied seeing things. Denied paranoid ideations. The patient was provided with information of crisis interventional services at [facility]. Phone number was provided as well. This tech writer reviewed the vital signs. Vital signs seems to be stable. Temperature is 98.3, pulse is 74, blood pressure is 132/93, and respiration are 18. MEDICATIONS: Reviewed. The patient is on Xanax, Fioricet, also Seroquel 100 mg at the nighttime given by medical team. LABORATORY DATA: Labs reviewed. Toxicology positive for barbiturate. MENTAL STATUS EXAMINATION: The patient is alert and oriented, superficially cooperative. As per report from the nursing staff, the patient was misusing medication, which she had in her purse. She had similar with this behavior in the past. The patient was alert, well related to this tech writer. Speech was normal rate, tone, quality and quantity. Mood described "I am feeling okay." Affect was constricted but reactive. Mood congruent. Thought process was coherent and goal directed. Thought content: The patient denied visual, auditory or tactile hallucinations. Denied paranoid ideation. The patient denied thoughts of harming herself or others. Denied intents or plan. Insight and judgment in regards of the pain killers and benzodiazepines are limited. Impulses are well controlled. IMPRESSION: The patient has a history of addiction to the pain killers as well as benzodiazepines, borderline personality disorder, multiple medical issues, rule out mood disorder due to general medical condition. PLAN: The patient was educated about importance to take medication as prescribed. The patient was educated about [facility] Crisis Intervention Services. Phone number was provided. From this tech writer perspective, the patient pose no imminent danger to self or others. The patient was advised to be followed up with outpatient psychiatrist. This tech writer will sign off. Should you have any questions give me a call back. Janice Guerra MD
== END 2017-06-10 15:56 | disposition home or self-care (01) | DRG 813 ==
LOC: ED 18:53 → ERH 22:47 → 5RSO 06-08 01:27 → OBSVTOIN 06-09 14:17 → 2RSO 06-09 16:17
PROVIDERS: ADMIT Internal Medicine; ATTEND Hospitalist
DX: K52.9 Noninfective gastroenteritis and colitis, unspecified (principal); E11.43 Type 2 diabetes mellitus with diabetic autonomic (poly)neuropathy; K31.84 Gastroparesis; F11.20 Opioid dependence, uncomplicated; W19.XXXA Unspecified fall, initial encounter; D64.9 Anemia, unspecified; E78.00 Pure hypercholesterolemia, unspecified; E78.1 Pure hyperglyceridemia; F31.9 Bipolar disorder, unspecified; F41.0 Panic disorder [episodic paroxysmal anxiety]; F43.10 Post-traumatic stress disorder, unspecified; F60.2 Antisocial personality disorder; F60.3 Borderline personality disorder; G40.909 Epilepsy, unspecified, not intractable, without status epilepticus; G43.909 Migraine, unspecified, not intractable, without status migrainosus; I10 Essential (primary) hypertension; K21.9 Gastro-esophageal reflux disease without esophagitis; K50.90 Crohn's disease, unspecified, without complications; K57.90 Diverticulosis of intestine, part unspecified, without perforation or abscess without bleeding; Z76.5 Malingerer [conscious simulation]; Z79.899 Other long term (current) drug therapy; Z86.711 Personal history of pulmonary embolism; Z86.73 Personal history of transient ischemic attack (TIA), and cerebral infarction without residual deficits; Z87.01 Personal history of pneumonia (recurrent); Z87.11 Personal history of peptic ulcer disease; Z87.891 Personal history of nicotine dependence; Z88.6 Allergy status to analgesic agent; Z90.49 Acquired absence of other specified parts of digestive tract; Z91.19 Patient's noncompliance with other medical treatment and regimen

== ENCOUNTER 2017-06-19 19:13 | Observation (INO) | payer MEDICAID ==
[2017-06-19 19:13] VITALS: BMI 23.0
[2017-06-19] MEDS ORDERED: Sodium Chloride 0.9% 1,000 ML IV STA (19:35)
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
[2017-06-19 20:16] LABS: HEMATOCRIT 30.9 % (36.0-48.0); MEAN CELL VOLUME 78.4 fl (80.0-105.0); MEAN CORPUSCULAR HEMOGLOBIN 25.1 pg (25.0-35.0); MEAN PLATELET VOLUME 10.3 fl (7.0-11.0); RED CELL DISTRIBUTION WIDTH 16.3 % (11.5-14.5); WHITE BLOOD COUNT 5.1 10^3/ul (4.5-11.0)
[2017-06-19 21:57] LABS: BLOOD UREA NITROGEN 39 mg/dL (7-21); GFR AFRICAN-AMERICAN 48; GLUCOSE,RANDOM 130 mg/dL (70-110); POTASSIUM 3.9 mmol/L (3.6-5.0); SODIUM 139 mmol/L (132-148)
[2017-06-19 21:58] LABS: ALB/GLOB RATIO 1.3 (1.1-1.8); ALKALINE PHOSPHATASE 93 U/L (38-126); ALT/SGPT 48 U/L (7-56); AST/SGOT 32 U/L (14-36); BILIRUBIN,TOTAL 0.4 mg/dL (0.2-1.3); CALCIUM 8.9 mg/dL (8.4-10.5); CARBON DIOXIDE 21 mmol/L (21-33); CHLORIDE 107 mmol/L (98-107); TOTAL PROTEIN 6.8 g/dL (5.8-8.3)
[2017-06-19 21:59] LABS: LIPASE < 10 U/L (23-300)
[2017-06-19] MEDS ORDERED: Sodium Chloride 0.9% 1,000 ML IV SCH (23:15)
[2017-06-19] MEDS ORDERED: Dextrose 5%/0.9% NS 1,000 ML IV SCH (23:30)
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
[2017-06-20] MEDS: Apap-Butalbital-Caffeine 325-50-40mg Tab PO SCH ×3 (02:55→18:03)
--- NOTE | 2017-06-20 04:19 | CP.PCM.PN ---
Subjective - Date & Time of Evaluation Date of Evaluation: 06/20/17 Time of Evaluation: 04:19 - Subjective Subjective: # 24 angiocath was inserted in right thumb. Objective - Vital Signs/Intake and Output Vital Signs (last 24 hours): Temp Pulse Resp BP Pulse Ox 97.7 F 91 H 18 132/79 97 06/20/17 01:21 06/20/17 01:21 06/20/17 01:21 06/20/17 01:21 06/19/17 23:49 - Medications Medications: Current Medications Acetaminophen/Butalbital/Caffeine (Fioricet) 1 tab PO Q8H [facility] Last Admin: 06/20/17 02:55 Dose: 1 tab Dextrose/Sodium Chloride (Dextrose 5%/0.9% Ns 1000 Ml) 1,000 mls @ 100 mls/hr IV .Q10H [facility] Last Admin: 06/19/17 23:25 Dose: 100 mls/hr Insulin Human Lispro (Humalog Low) 0 units SC ACHS [facility] PRN Reason: Protocol Levetiracetam (Keppra) 500 mg PO BID [facility] Lisinopril (Zestril) 10 mg PO DAILY [facility] Metoclopramide HCl (Reglan) 10 mg IVP Q8H [facility] Last Admin: 06/20/17 02:37 Dose: Not Given Metoprolol Tartrate (Lopressor) 25 mg PO BID [facility] Mirtazapine (Remeron) 45 mg PO HS [facility] Ondansetron HCl (Zofran Inj) 4 mg IVP Q6H PRN PRN Reason: Nausea/Vomiting Last Admin: 06/20/17 01:40 Dose: 4 mg Pantoprazole Sodium (Protonix Inj) 40 mg IVP DAILY [facility] Quetiapine Fumarate (Seroquel) 100 mg PO HS [facility] PRN Reason: Protocol
[2017-06-20 07:10] LABS: URINE BILIRUBIN NEGATIVE (NEGATIVE); URINE BLOOD SMALL (NEGATIVE); URINE GLUCOSE (UA) NEGATIVE (NEGATIVE); URINE KETONE 40 mg/dL (NEGATIVE); URINE LEUKOCYTE ESTERASE NEGATIVE Leu/uL (NEGATIVE); URINE PROTEIN NEGATIVE mg/dL (<30 mg/dL); URINE UROBILINOGEN 0.2 E.U./dL (<1 E.U./dL)
[2017-06-20 07:28] LABS: URINE APPEARANCE SL CLOUDY (CLEAR); URINE COLOR YELLOW (YELLOW)
[2017-06-20 07:44] LABS: BASO # 0.01 K/mm3 (0.0-2.0); BASO % 0.2 % (0.0-3.0); EOS # 0.1 (0.0-0.7); EOS % 2.2 % (1.5-5.0); GRAN # 2.41 (1.4-6.5); GRAN % 52.2 % (50.0-68.0); HEMATOCRIT 28.3 % (36.0-48.0); LYMPH # 1.7 (1.2-3.4); LYMPH % 36.9 % (22.0-35.0); MEAN CELL VOLUME 79.1 fl (80.0-105.0); MEAN CORPUSCULAR HEMOGLOBIN 24.3 pg (25.0-35.0); MEAN CORPUSCULAR HGB CONC 30.7 g/dl (31.0-37.0); MONO # 0.4 (0.1-0.6); MONO % 8.5 % (1.0-6.0); RED CELL DISTRIBUTION WIDTH 16.4 % (11.5-14.5); WHITE BLOOD COUNT 4.6 10^3/ul (4.5-11.0)
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
[2017-06-20 08:05] LABS: URINE EPITHELIAL CELLS 0 - 2 /hpf (0-5); URINE RBC 0 - 2 /hpf (0-2); URINE WBC 0 - 2 /hpf (0-6)
[2017-06-20 08:13] LABS: ALB/GLOB RATIO 1.2 (1.1-1.8); ALKALINE PHOSPHATASE 85 U/L (38-126); ALT/SGPT 47 U/L (7-56); AST/SGOT 22 U/L (14-36); BILIRUBIN,TOTAL 0.5 mg/dL (0.2-1.3); BLOOD UREA NITROGEN 24 mg/dL (7-21); CALCIUM 8.9 mg/dL (8.4-10.5); CARBON DIOXIDE 19 mmol/L (21-33); CHLORIDE 109 mmol/L (98-107); GFR AFRICAN-AMERICAN > 60; GLUCOSE,RANDOM 109 mg/dL (70-110); MAGNESIUM 1.9 mg/dL (1.7-2.2); PHOSPHOROUS 2.5 mg/dL (2.5-4.5); POTASSIUM 3.8 mmol/L (3.6-5.0); SODIUM 140 mmol/L (132-148); TOTAL PROTEIN 6.3 g/dL (5.8-8.3)
[2017-06-20] MEDS: Insulin Lispro (humaLOG) LOW Coverage SC SCH ×4 (08:39→21:36)
[2017-06-20 17:24] VITALS: O2SAT 100
--- NOTE | 2017-06-20 19:43 | CP.PCM.PN ---
<Jordan Jean - Last Filed: 06/20/17 19:28> Subjective - Date & Time of Evaluation Date of Evaluation: 06/20/17 Time of Evaluation: 19:28 - Subjective Subjective: Medicine progress note for Dr. Neal - Jordan Victor DO PGY - 1, Pager [phone] Pt s/e bedside. She complains of mild epigastric pain but significant nausea. She is not asking for any medications for her pain at this time. Pt endorsed a phone number for her pharmacy so that we could reconcile her medications, but this number did not work. I will call her PMD, Dr. Barahona, tomorrow. No further complaints at this time. Objective - Vital Signs/Intake and Output Vital Signs (last 24 hours): Temp Pulse Resp BP Pulse Ox 98.6 F 74 18 136/84 100 06/20/17 16:00 06/20/17 16:00 06/20/17 16:00 06/20/17 17:56 06/20/17 16:00 - Medications Medications: Current Medications Acetaminophen/Butalbital/Caffeine (Fioricet) 1 tab PO Q8H [facility] Last Admin: 06/20/17 18:03 Dose: 1 tab Insulin Human Lispro (Humalog Low) 0 units SC ACHS [facility] PRN Reason: Protocol Last Admin: 06/20/17 16:28 Dose: Not Given Levetiracetam (Keppra) 500 mg PO BID [facility] Last Admin: 06/20/17 17:56 Dose: 500 mg Lisinopril (Zestril) 10 mg PO DAILY [facility] Last Admin: 06/20/17 10:12 Dose: 10 mg Metoclopramide HCl (Reglan) 10 mg IVP Q8H [facility] Last Admin: 06/20/17 17:57 Dose: 10 mg Metoprolol Tartrate (Lopressor) 25 mg PO BID [facility] Last Admin: 06/20/17 17:56 Dose: 25 mg Mirtazapine (Remeron) 45 mg PO [facility] Ondansetron HCl (Zofran Inj) 4 mg IVP Q6H PRN PRN Reason: Nausea/Vomiting Last Admin: 06/20/17 01:40 Dose: 4 mg Pantoprazole Sodium (Protonix Inj) 40 mg IVP DAILY [facility] Last Admin: 12/03/17 10:13 Dose: 40 mg Quetiapine Fumarate (Seroquel) 100 mg PO HS [facility] PRN Reason: Protocol - Labs Labs: 06/20/17 06:45 06/20/17 06:45 - Additional Findings Additional findings: Phys Exam: VS as below Const'l: a&o x 4, nad Head/Neck: neck supple, no jvd, trachea midline, carotid midline, no cervical /head mass Eyes: kilo, nonicteric sclera, eom intact ENT: auditory acuity grossly intact, throat not congested, no nasal deformity Cardio: rrr, no m/r/g, no carotid bruit, nml s1, s2 Pulm: no accessory muscle use, equal nml breath sounds bilaterally, ctab Abd: +TTP in midepigastric area; s/nt/nd, nbs x 4 q, no palpable masses Derm: no rashes, no ulcers, no lesions Extr: no edema, no cyanosis, no calf tenderness, no lesions, no varicosities Neuro: cn II-XII grossly intact, ue and le 5/5 muscle strength bilaterally, no los ue, le bilaterally and core Assessment and Plan - Assessment and Plan (Free Text) Assessment: A/P 51 yo F with PMH of gastroparesis, HTN, hypertriglyceridemia, seizure disorders on keppra, GERD, migraines, polysubstance abuse, anemia and extensive psych history who presents with episodes of epigastric pain with nausea, vomiting, and diarrhea since . Patient admitted for intractable nausea, vomiting, and diarrhea. Intractable Nausea, Vomiting, Diarrhea with abdominal pain - UA: Small blood and ketones - Zofran, toradol, protonix, reglan - Avoid opiates to not worsen gastroparesis - D/C NS - Last Hemoglobin A1C from last month: 6.6 - Last lipid panel from 03/2017: TG 190, LDL 58, HDL 56 - GI consulted, [place]: Dr. Okeefe saw her, recs to advance diet as tolerated. Once she can tolerate full diet, discharge and follow up at [facility] * Prokinetic: Reglan DM - RISS low ACHS Hx Anemia - Hgb: 9.9 near baseline - Anemia workup from last admission showed low iron - Continue to monitor Hx Seizures - Cont Keppra 500mg BID - Seizure precautions Hx HTN - Continue Lisinopril 10 mg - Continue Lopressor 25 mg bid Hx Psych disorders - Continue Seroquel 100 mg PO HS - Continue Remeron 45 mg PO HS Hx polysubstance abuse - Urine drug screen ordered: not yet resulted GI/DVT Prophylaxis: Pantoprazole, Sequential compression device Dispo: Pt can be d/c'd once a full diet is tolerated <Erma Neal - Last Filed: 06/20/17 21:05> Objective - Vital Signs/Intake and Output Vital Signs (last 24 hours): Temp Pulse Resp BP Pulse Ox 98.6 F 74 18 136/84 100 06/20/17 16:00 06/20/17 16:00 06/20/17 16:00 06/20/17 17:56 06/20/17 16:00 - Medications Medications: Current Medications Acetaminophen/Butalbital/Caffeine (Fioricet) 1 tab PO Q8H [facility] Last Admin: 06/20/17 18:03 Dose: 1 tab Insulin Human Lispro (Humalog Low) 0 units SC [facility] PRN Reason: Protocol Last Admin: 06/20/17 16:28 Dose: Not Given Levetiracetam (Keppra) 500 mg PO BID [facility] Last Admin: 06/20/17 17:56 Dose: 500 mg Lisinopril (Zestril) 10 mg PO DAILY [facility] Last Admin: 06/20/17 10:12 Dose: 10 mg Metoclopramide HCl (Reglan) 10 mg IVP Q8H [facility] Last Admin: 06/20/17 17:57 Dose: 10 mg Metoprolol Tartrate (Lopressor) 25 mg PO BID [facility] Last Admin: 06/20/17 17:56 Dose: 25 mg Mirtazapine (Remeron) 45 mg PO HS [facility] Ondansetron HCl (Zofran Inj) 4 mg IVP Q6H PRN PRN Reason: Nausea/Vomiting Last Admin: 06/20/17 01:40 Dose: 4 mg Pantoprazole Sodium (Protonix Inj) 40 mg IVP DAILY [facility] Last Admin: 06/20/17 10:13 Dose: 40 mg Quetiapine Fumarate (Seroquel) 100 mg PO HS [facility] PRN Reason: Protocol - Labs Labs: 06/20/17 06:45 06/20/17 06:45 Attending/Attestation - Attestation I have personally seen and examined this patient.: Yes I have fully participated in the care of the patient.: Yes I have reviewed all pertinent clinical information, including history, physical exam and plan: Yes Notes (Text): 06/20/17 21:03 Patient seen and examined independently. Admission vitals, labs and notes reviewed. She reports some improvement in her symptoms. GI consult noted and plan to follow recommendations for advancing diet. Continue chronic medications. Agree with the remainder of plan outlined by the resident.
[2017-06-21] MEDS: Apap-Butalbital-Caffeine 325-50-40mg Tab PO SCH ×2 (02:00→10:00)
[2017-06-21 07:45] LABS: BASO # 0.03 K/mm3 (0.0-2.0); BASO % 0.8 % (0.0-3.0); EOS # 0.2 (0.0-0.7); EOS % 4.1 % (1.5-5.0); GRAN # 1.31 (1.4-6.5); GRAN % 35.8 % (50.0-68.0); HEMATOCRIT 30.5 % (36.0-48.0); LYMPH # 1.9 (1.2-3.4); LYMPH % 51.9 % (22.0-35.0); MEAN CELL VOLUME 79.2 fl (80.0-105.0); MEAN CORPUSCULAR HEMOGLOBIN 24.2 pg (25.0-35.0); MEAN CORPUSCULAR HGB CONC 30.5 g/dl (31.0-37.0); MEAN PLATELET VOLUME 9.6 fl (7.0-11.0); MONO # 0.3 (0.1-0.6); MONO % 7.4 % (1.0-6.0); RED CELL DISTRIBUTION WIDTH 16.3 % (11.5-14.5); WHITE BLOOD COUNT 3.7 10^3/ul (4.5-11.0)
[2017-06-21 08:21] LABS: ALB/GLOB RATIO 1.3 (1.1-1.8); ALKALINE PHOSPHATASE 79 U/L (38-126); ALT/SGPT 43 U/L (7-56); AST/SGOT 26 U/L (14-36); BILIRUBIN,TOTAL 0.4 mg/dL (0.2-1.3); BLOOD UREA NITROGEN 14 mg/dL (7-21); CALCIUM 9.3 mg/dL (8.4-10.5); CARBON DIOXIDE 28 mmol/L (21-33); CHLORIDE 108 mmol/L (98-107); GFR AFRICAN-AMERICAN > 60; GLUCOSE,RANDOM 105 mg/dL (70-110); POTASSIUM 4.2 mmol/L (3.6-5.0); SODIUM 142 mmol/L (132-148); TOTAL PROTEIN 6.4 g/dL (5.8-8.3)
[2017-06-21] MEDS: Insulin Lispro (humaLOG) LOW Coverage SC SCH (09:57)
[2017-06-21 10:05] VITALS: BP 127/89; PULSE 75
[2017-06-21 10:36] VITALS: RESP 16; TEMP 97.3
--- NOTE | 2017-06-21 16:45 | CP.PCM.DIS ---
<Jordan Jean - Last Filed: 06/21/17 16:39> Provider - Provider Date of Admission: 06/19/17 22:52 Attending physician: Reinaldo Eng MD Consults: GI: Dr. Lucien Okeefe Time Spent in preparation of Discharge (in minutes): 45 Hospital Course - Lab Results Lab Results: Most Recent Lab Values WBC 3.7 10^3/ul (4.5-11.0) L 06/21/17 07:00 RBC 3.85 10^6/uL (3.5-6.1) 06/21/17 07:00 Hgb 9.3 g/dL (12.0-16.0) L 06/21/17 07:00 Hct 30.5 % (36.0-48.0) L 06/21/17 07:00 MCV 79.2 fl (80.0-105.0) L 06/21/17 07:00 MCH 24.2 pg (25.0-35.0) L 06/21/17 07:00 MCHC 30.5 g/dl (31.0-37.0) L 06/21/17 07:00 RDW 16.3 % (11.5-14.5) H 06/21/17 07:00 Plt Count 337 10^3/uL (120.0-450.0) 06/21/17 07:00 MPV 9.6 fl (7.0-11.0) 06/21/17 07:00 Gran % 35.8 % (50.0-68.0) L 06/21/17 07:00 Lymph % (Auto) 51.9 % (22.0-35.0) H 06/21/17 07:00 [place] % (Auto) 7.4 % (1.0-6.0) H 06/21/17 07:00 Eos % (Auto) 4.1 % (1.5-5.0) 06/21/17 07:00 Baso % (Auto) 0.8 % (0.0-3.0) 06/21/17 07:00 Gran # 1.31 (1.4-6.5) L 06/21/17 07:00 Lymph # 1.9 (1.2-3.4) 06/21/17 07:00 [place] # 0.3 (0.1-0.6) 06/21/17 07:00 Eos # 0.2 (0.0-0.7) 06/21/17 07:00 Baso # 0.03 K/mm3 (0.0-2.0) 06/21/17 07:00 Sodium 142 mmol/L (132-148) 06/21/17 07:00 Potassium 4.2 mmol/L (3.6-5.0) 06/21/17 07:00 Chloride 108 mmol/L (98-107) H 06/21/17 07:00 Carbon Dioxide 28 mmol/L (21-33) 06/21/17 07:00 Anion Gap 11 (10-20) 06/21/17 07:00 BUN 14 mg/dL (7-21) 06/21/17 07:00 Creatinine 0.9 mg/dl (0.7-1.2) 06/21/17 07:00 Est GFR ( Amer) > 60 06/21/17 07:00 Est GFR (Non-Af Amer) > 60 06/21/17 07:00 POC Glucose (mg/dL) 105 mg/dL (65-110) 06/21/17 07:15 Random Glucose 105 mg/dL (70-110) 06/21/17 07:00 Calcium 9.3 mg/dL (8.4-10.5) 06/21/17 07:00 Phosphorus 2.5 mg/dL (2.5-4.5) 06/20/17 06:45 Magnesium 1.9 mg/dL (1.7-2.2) 06/20/17 06:45 Total Bilirubin 0.4 mg/dL (0.2-1.3) 06/21/17 07:00 AST 26 U/L (14-36) 06/21/17 07:00 ALT 43 U/L (7-56) 06/21/17 07:00 Alkaline Phosphatase 79 U/L (38-126) 06/21/17 07:00 Total Protein 6.4 g/dL (5.8-8.3) 06/21/17 07:00 Albumin 3.6 g/dL (3.0-4.8) 06/21/17 07:00 Globulin 2.8 gm/dL 06/21/17 07:00 Albumin/Globulin Ratio 1.3 (1.1-1.8) 06/21/17 07:00 Lipase < 10 U/L (23-300) L 06/19/17 19:55 Urine Color Yellow (YELLOW) 06/20/17 06:40 Urine Appearance Sl cloudy (CLEAR) 06/20/17 06:40 Urine pH 6.0 (4.7-8.0) 06/20/17 06:40 Ur Specific [place] 1.020 (1.005-1.035) 06/20/17 06:40 Urine Protein Negative mg/dL (<30 mg/dL) 06/20/17 06:40 Urine Glucose (UA) Negative mg/dL (NEGATIVE) 06/20/17 06:40 Urine Ketones 40 mg/dL (NEGATIVE) H 06/20/17 06:40 Urine Blood Small (NEGATIVE) H 06/20/17 06:40 Urine Nitrate Negative (NEGATIVE) 06/20/17 06:40 Urine Bilirubin Negative (NEGATIVE) 06/20/17 06:40 Urine Urobilinogen 0.2 E.U./dL (<1 E.U./dL) 06/20/17 06:40 Ur Leukocyte Esterase Negative William/uL (NEGATIVE) 06/20/17 06:40 Urine RBC 0 - 2 /hpf (0-2) 06/20/17 06:40 Urine WBC 0 - 2 /hpf (0-6) 06/20/17 06:40 Ur Epithelial Cells 0 - 2 /hpf (0-5) 06/20/17 06:40 - Hospital Course Hospital Course: HPI on day of admission: 51 yo F with PMH of gastroparesis, HTN, hypertriglyceridemia, seizure disorders on keppra, GERD, migraines, polysubstance abuse, anemia and extensive psych history who presents with episodes of epigastric pain with nausea, vomiting, and diarrhea since . Patient states she was here before thanksgiving and was supposed to go to a motility clinic but forgot to. Patient states the abdominal pain and vomiting was unbearable so she decided to come in. Patient denies any blood in vomit or diarrhea. She states she vomited 6x today and it was brown colored, but diarrhea was last time yesterday and it was watery. Patient was given toradol in ED for pain and asked for something stronger but told her pain will be managed without additional pain medication for now. Ptient denies weight loss, new foods, recent travel, recent illness, sick contacts, fevers/chills, chest pain, weakness. Hospital Course: While in the hospital, Ms. Ortiz did not require any imaging studies. Her labs were significant for anemia, but she was around her baseline. Throughout her stay in the hospital, Ms. Ortiz stated that she felt better and that her n/v/d had subsided. She did state that she was having some abdominal pain, but she did not require any significant pain medications. The GI team with Dr. Okeefe saw her, and stated that when she could tolerate her diet , she should be d/c'd and should follow up with [facility] motility clinic. On the day of d/c, she was able to tolerate a breakfast of eggs and le[place]ese toast. She was stable for d/c. A/P day before discharge: A/P 51 yo F with PMH of gastroparesis, HTN, hypertriglyceridemia, seizure disorders on keppra, GERD, migraines, polysubstance abuse, anemia and extensive psych history who presents with episodes of epigastric pain with nausea, vomiting, and diarrhea since . Patient admitted for intractable nausea, vomiting, and diarrhea. Intractable Nausea, Vomiting, Diarrhea with abdominal pain - UA: Small blood and ketones - Zofran, toradol, protonix, reglan - Avoid opiates to not worsen gastroparesis - D/C NS - Last Hemoglobin A1C from last month: 6.6 - Last lipid panel from 03/2017: TG 190, LDL 58, HDL 56 - GI consulted, [place]: Dr. Okeefe saw her, recs to advance diet as tolerated. Once she can tolerate full diet, discharge and follow up at [facility] * Prokinetic: Reglan DM - RISS low ACHS Hx Anemia - Hgb: 9.9 near baseline - Anemia workup from last admission showed low iron - Continue to monitor Hx Seizures - Cont Keppra 500mg BID - Seizure precautions Hx HTN - Continue Lisinopril 10 mg - Continue Lopressor 25 mg bid Hx Psych disorders - Continue Seroquel 100 mg PO HS - Continue Remeron 45 mg PO HS Hx polysubstance abuse - Urine drug screen ordered: not yet resulted GI/DVT Prophylaxis: Pantoprazole, Sequential compression device Dispo: Pt can be d/c'd once a full diet is tolerated Discharge Exam - Head Exam Head Exam: NORMAL INSPECTION - Additional Findings Additional findings: Phys Exam: VS as below Const'l: a&o x 4, nad Head/Neck: neck supple, no jvd, trachea midline, carotid midline, no cervical /head mass Eyes: kilo, nonicteric sclera, eom intact ENT: auditory acuity grossly intact, throat not congested, no nasal deformity Cardio: rrr, no m/r/g, no carotid bruit, nml s1, s2 Pulm: no accessory muscle use, equal nml breath sounds bilaterally, ctab Abd: +TTP in midepigastric area; s/nt/nd, nbs x 4 q, no palpable masses Derm: no rashes, no ulcers, no lesions Extr: no edema, no cyanosis, no calf tenderness, no lesions, no varicosities Neuro: cn II-XII grossly intact, ue and le 5/5 muscle strength bilaterally, no los ue, le bilaterally and core Discharge Plan - Follow Up Plan Condition: STABLE Disposition: HOME/ ROUTINE Patient education suggested?: Yes Instructions: Rotavirus Infection (DC), Rotavirus Infection (GEN), How to Stop Smoking (DC), Cigarette Smoking and Your Health (GEN), Depression (DC), At-Risk Alcohol Use (DC), Acute Nausea and Vomiting (DC), Acute Abdominal Pain (DC), Acute Abdominal Pain (GEN), Nutrition Tips for Relief of Diarrhea (DC), Nutrition Tips for Relief of Diarrhea (GEN), Gastroparesis (DC) Additional Instructions: 1. Please follow up with [facility] for motility studies 2. IF your symptoms persist or worsen, please return to the ED immediately. <Reinaldo Eng - Last Filed: 06/21/17 18:48> Provider - Provider Date of Admission: 06/19/17 22:52 Attending physician: Reinaldo Eng MD Hospital Course - Lab Results Lab Results: Most Recent Lab Values WBC 3.7 10^3/ul (4.5-11.0) L 06/21/17 07:00 RBC 3.85 10^6/uL (3.5-6.1) 06/21/17 07:00 Hgb 9.3 g/dL (12.0-16.0) L 06/21/17 07:00 Hct 30.5 % (36.0-48.0) L 06/21/17 07:00 MCV 79.2 fl (80.0-105.0) L 06/21/17 07:00 MCH 24.2 pg (25.0-35.0) L 06/21/17 07:00 MCHC 30.5 g/dl (31.0-37.0) L 06/21/17 07:00 RDW 16.3 % (11.5-14.5) H 06/21/17 07:00 Plt Count 337 10^3/uL (120.0-450.0) 06/21/17 07:00 MPV 9.6 fl (7.0-11.0) 06/21/17 07:00 Gran % 35.8 % (50.0-68.0) L 06/21/17 07:00 Lymph % (Auto) 51.9 % (22.0-35.0) H 06/21/17 07:00 [place] % (Auto) 7.4 % (1.0-6.0) H 06/21/17 07:00 Eos % (Auto) 4.1 % (1.5-5.0) 06/21/17 07:00 Baso % (Auto) 0.8 % (0.0-3.0) 06/21/17 07:00 Gran # 1.31 (1.4-6.5) L 06/21/17 07:00 Lymph # 1.9 (1.2-3.4) 06/21/17 07:00 [place] # 0.3 (0.1-0.6) 06/21/17 07:00 Eos # 0.2 (0.0-0.7) 06/21/17 07:00 Baso # 0.03 K/mm3 (0.0-2.0) 06/21/17 07:00 Sodium 142 mmol/L (132-148) 06/21/17 07:00 Potassium 4.2 mmol/L (3.6-5.0) 06/21/17 07:00 Chloride 108 mmol/L (98-107) H 06/21/17 07:00 Carbon Dioxide 28 mmol/L (21-33) 06/21/17 07:00 Anion Gap 11 (10-20) 06/21/17 07:00 BUN 14 mg/dL (7-21) 06/21/17 07:00 Creatinine 0.9 mg/dl (0.7-1.2) 06/21/17 07:00 Est GFR ( Amer) > 60 06/21/17 07:00 Est GFR (Non-Af Amer) > 60 06/21/17 07:00 POC Glucose (mg/dL) 105 mg/dL (65-110) 06/21/17 07:15 Random Glucose 105 mg/dL (70-110) 06/21/17 07:00 Calcium 9.3 mg/dL (8.4-10.5) 06/21/17 07:00 Phosphorus 2.5 mg/dL (2.5-4.5) 06/20/17 06:45 Magnesium 1.9 mg/dL (1.7-2.2) 06/20/17 06:45 Total Bilirubin 0.4 mg/dL (0.2-1.3) 06/21/17 07:00 AST 26 U/L (14-36) 06/21/17 07:00 ALT 43 U/L (7-56) 06/21/17 07:00 Alkaline Phosphatase 79 U/L (38-126) 06/21/17 07:00 Total Protein 6.4 g/dL (5.8-8.3) 06/21/17 07:00 Albumin 3.6 g/dL (3.0-4.8) 06/21/17 07:00 Globulin 2.8 gm/dL 06/21/17 07:00 Albumin/Globulin Ratio 1.3 (1.1-1.8) 06/21/17 07:00 Lipase < 10 U/L (23-300) L 06/19/17 19:55 Urine Color Yellow (YELLOW) 06/20/17 06:40 Urine Appearance Sl cloudy (CLEAR) 06/20/17 06:40 Urine pH 6.0 (4.7-8.0) 06/20/17 06:40 Ur Specific [place] 1.020 (1.005-1.035) 06/20/17 06:40 Urine Protein Negative mg/dL (<30 mg/dL) 06/20/17 06:40 Urine Glucose (UA) Negative mg/dL (NEGATIVE) 06/20/17 06:40 Urine Ketones 40 mg/dL (NEGATIVE) H 06/20/17 06:40 Urine Blood Small (NEGATIVE) H 06/20/17 06:40 Urine Nitrate Negative (NEGATIVE) 06/20/17 06:40 Urine Bilirubin Negative (NEGATIVE) 06/20/17 06:40 Urine Urobilinogen 0.2 E.U./dL (<1 E.U./dL) 06/20/17 06:40 Ur Leukocyte Esterase Negative William/uL (NEGATIVE) 06/20/17 06:40 Urine RBC 0 - 2 /hpf (0-2) 06/20/17 06:40 Urine WBC 0 - 2 /hpf (0-6) 06/20/17 06:40 Ur Epithelial Cells 0 - 2 /hpf (0-5) 06/20/17 06:40 Attending/Attestation - Attestation I have personally seen and examined this patient.: Yes I have fully participated in the care of the patient.: Yes I have reviewed all pertinent clinical information, including history, physical exam and plan: Yes Notes (Text): I have seen and examined the patient at bedside. Agree with the above note with the following additions/ exceptions: Briefly this is 51 year old female with history of gastroparesis, HTN, hypertriglyceridemia, seizure disorders on keppra , GERD, migraines, polysubstance abuse, anemia, depression and opioid addiction who was admitted for evaluation of N,V, abdominal pain most likely due to gastroparesis. She was given IVF. Diet was slowly advanced and she was able to tolerate that. Patient appears comfortable. Explained to the patient to avoid opiates as this will worsen gastroparesis. GI consult appreciated. Patient needs to follow up with motility clinic at [facility]. Upon discharge patient will follow up with PMD Dr Muhammad, [facility] intervention services and Pain management doctor in [place]. Dr Reinaldo Eng
== END 2017-06-21 16:55 | disposition home or self-care (01) ==
LOC: ED 19:13 → ERH 22:52 → 5RSO 06-20 00:54
PROVIDERS: ADMIT Internal Medicine; ATTEND Hospitalist
DX: E11.43 Type 2 diabetes mellitus with diabetic autonomic (poly)neuropathy (principal); K31.84 Gastroparesis; K21.9 Gastro-esophageal reflux disease without esophagitis; I10 Essential (primary) hypertension; D64.9 Anemia, unspecified; G40.909 Epilepsy, unspecified, not intractable, without status epilepticus; E78.1 Pure hyperglyceridemia; G43.909 Migraine, unspecified, not intractable, without status migrainosus; F31.9 Bipolar disorder, unspecified; N28.9 Disorder of kidney and ureter, unspecified; Z87.11 Personal history of peptic ulcer disease; Z90.49 Acquired absence of other specified parts of digestive tract; Z87.891 Personal history of nicotine dependence
CPT/HCPCS: 36415; 80053; 81001; 82948; 83690; 83735; 84100; 85025; 85027; 96361; 96374; 96375; 99285; C9113; G0378; J1885; J2405; J2765; J7040; J7042

== ENCOUNTER 2017-07-03 19:36 | Inpatient (IN) | payer MEDICAID ==
[2017-07-03 19:53] VITALS: BMI 21.2
[2017-07-03] MEDS ORDERED: Sodium Chloride 0.9% 1,000 ML IV STA (19:53)
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
[2017-07-03 20:50] LABS: HEMATOCRIT 29.3 % (36.0-48.0); MEAN CELL VOLUME 79.2 fl (80.0-105.0); MEAN CORPUSCULAR HEMOGLOBIN 24.6 pg (25.0-35.0); MEAN CORPUSCULAR HGB CONC 31.1 g/dl (31.0-37.0); RED CELL DISTRIBUTION WIDTH 16.7 % (11.5-14.5); WHITE BLOOD COUNT 8.1 10^3/ul (4.5-11.0)
[2017-07-03 21:02] LABS: TROPONIN I < 0.01 ng/mL
[2017-07-03 21:26] LABS: BLOOD UREA NITROGEN 30 mg/dL (7-21); CALCIUM 9.2 mg/dL (8.4-10.5); CARBON DIOXIDE 14 mmol/L (21-33); CHLORIDE 116 mmol/L (98-107); GFR AFRICAN-AMERICAN > 60; GLUCOSE,RANDOM 105 mg/dL (70-110); POTASSIUM 4.4 mmol/L (3.6-5.0); SODIUM 143 mmol/L (132-148); TOTAL PROTEIN 6.8 g/dL (5.8-8.3)
[2017-07-03 21:27] LABS: ALB/GLOB RATIO 1.4 (1.1-1.8); ALKALINE PHOSPHATASE 70 U/L (38-126); ALT/SGPT 22 U/L (7-56); AST/SGOT 23 U/L (14-36); BILIRUBIN,TOTAL 0.2 mg/dL (0.2-1.3); LIPASE 60 U/L (23-300)
[2017-07-03] MEDS ORDERED: HYDROmorphone 1 mg/ml ISec IVP STA (21:37)
[2017-07-03] MEDS ORDERED: HYDROmorphone 1 mg/ml ISec ONE (21:39)
--- NOTE | 2017-07-03 22:53 | CT ---
EXAM: CT Abdomen and Pelvis Without Intravenous Contrast EXAM DATE/TIME: 07/03/2017 7:51 PM CLINICAL HISTORY: 51 years old, female; Signs and symptoms; Abdominal tenderness and nausea and vomiting; Additional info: Pain TECHNIQUE: Axial computed tomography images of the abdomen and pelvis without intravenous contrast. All CT scans at this facility use one or more dose reduction techniques, viz.: automated exposure control; ma/kV adjustment per patient size (including targeted exams where dose is matched to indication; i.e. head); or iterative reconstruction technique. Coronal and sagittal reformatted images were created and reviewed. COMPARISON: CT - ABD PELVIS W/O PO OR IV CONT 2017-06-07 19:40 FINDINGS: Limitations: Evaluation is limited by lack of oral and intravenous contrast. Lower thorax: Heart size is normal. There is a hiatal hernia. There are postsurgical changes about the distal esophagus. There is atelectasis at the lung bases ABDOMEN: Liver: unremarkable Gallbladder and bile ducts: The gallbladder is absent. Common duct is prominent. Pancreas: Pancreas is mildly atrophic. Spleen: unremarkable Adrenals: unremarkable Kidneys and ureters: unremarkable Stomach and bowel: There are postsurgical changes of gastrojejunostomy. Residual stomach is distended with ingested material. There is an air-fluid level. There is jejunal wall thickening at the anastomosis and adjacent upper small bowel loops. Small bowel wall thickening decreases distally. There is fluid and air throughout the small bowel. There is fecalization of distal and terminal ileum. Appendix is unremarkable. There is a large amount of stool throughout the entire colon. There is scattered diverticulosis Appendix: See stomach and bowel PELVIS: Bladder: unremarkable Reproductive: Uterus and adnexal structures are unremarkable. ABDOMEN and PELVIS: Intraperitoneal space: There is no significant fluid.There is no free air. Bones/joints: There is mild scoliosis. There is mild loss of height at T12. There is a bone island in the L3 vertebral body. Soft tissues: unremarkable Vasculature: There are vascular calcifications. Lymph nodes: There is no pathologic adenopathy. IMPRESSION: Gastric surgery with gastrojejunostomy, persistent jejunal wall thickening suggesting enteritis; constipation; distended small bowel and fecalization of distal and terminal ileum most likely due to constipation no acute solid visceral abnormality; prominent common duct status post cholecystectomy Additional findings as described above.
[2017-07-03 23:28] LABS: VENOUS BLOOD GAS BASE EXCESS -10.5 mmol/L (0.0-2.0)
[2017-07-03] MEDS ORDERED: Sodium Chloride 0.9% 1,000 ML IV SCH (23:45)
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
[2017-07-04] MEDS ORDERED: Sodium Chloride 0.9% 1,000 ML IV SCH ×2 (00:22→07:53)
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
[2017-07-04] MEDS ORDERED: HYDROmorphone 0.5 mg/0.5 ml ISec IVP STA (01:13)
[2017-07-04] MEDS ORDERED: HYDROmorphone 1 mg/ml ISec IVP STA (01:44)
[2017-07-04 03:08] LABS: VENOUS BLOOD GAS BASE EXCESS -8.9 mmol/L (0.0-2.0); VENOUS BLOOD PH 7.29 (7.32-7.43)
[2017-07-04 05:29] LABS: BASO # 0.02 K/mm3 (0.0-2.0); BASO % 0.3 % (0.0-3.0); EOS # 0.2 (0.0-0.7); EOS % 3.2 % (1.5-5.0); GRAN # 2.58 (1.4-6.5); GRAN % 43.1 % (50.0-68.0); HEMATOCRIT 26.1 % (36.0-48.0); LYMPH # 2.8 (1.2-3.4); LYMPH % 46.1 % (22.0-35.0); MEAN CELL VOLUME 79.8 fl (80.0-105.0); MEAN CORPUSCULAR HEMOGLOBIN 24.8 pg (25.0-35.0); MEAN PLATELET VOLUME 9.9 fl (7.0-11.0); MONO # 0.4 (0.1-0.6); MONO % 7.3 % (1.0-6.0); RED CELL DISTRIBUTION WIDTH 16.8 % (11.5-14.5)
[2017-07-04 05:51] LABS: ALB/GLOB RATIO 1.2 (1.1-1.8); BILIRUBIN,TOTAL 0.1 mg/dL (0.2-1.3); CALCIUM 8.3 mg/dL (8.4-10.5); POTASSIUM 5.4 mmol/L (3.6-5.0); TOTAL PROTEIN 5.7 g/dL (5.8-8.3)
[2017-07-04] MEDS ORDERED: Peg-Electrolyte Oral Soln 4L (Golytely) PO ONE (08:08)
--- NOTE | 2017-07-04 08:55 | RAD ---
HISTORY: abdominal pain COMPARISON: 05/31/2017 FINDINGS: LUNGS: No active pulmonary disease. PLEURA: No significant pleural effusion identified, no pneumothorax apparent. CARDIOVASCULAR: Normal. OSSEOUS STRUCTURES: Scoliosis convex to the right VISUALIZED UPPER ABDOMEN: Normal. OTHER FINDINGS: None. IMPRESSION: No active disease.
[2017-07-04] MEDS: Apap-Butalbital-Caffeine 325-50-40mg Tab PO PRN ×3 (08:57→18:37)
[2017-07-04] MEDS: HYDROmorphone 0.5 mg/0.5 ml ISec IVP PRN ×3 (08:57→20:01)
[2017-07-04] MEDS ORDERED: Sodium Bicarbonate 8.4% 150 MEQ in Dextrose 5% In Water 1,000 ML IV SCH (10:00)
[2017-07-04] MEDS: Lactobacillus Acidophilus 500 MU Cap PO SCH ×2 (10:20→16:59)
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
[2017-07-04 11:36] LABS: ARTERIAL BLOOD GAS HCO3 18.2 mmol/L (21-28); ARTERIAL BLOOD GAS O2 CAPACITY 10.1 mL/dl (16-24); ARTERIAL BLOOD GAS O2 CONTENT 9.9 ML/dl (15-23); ARTERIAL BLOOD HGB O2 SAT 94.3 % (95.0-98.0); CARBOXYHEMOGLOBIN 2.7 % (0.5-1.5); HHB 1.4 % (0-5); METHEMOGLOBIN 1.6 % (0.0-3.0)
--- NOTE | 2017-07-04 17:25 | CARD ---
APPROVED REPORT EKG Measurement Heart [id number] <Conclusion> Normal sinus rhythm Possible Left atrial enlargement Borderline ECG
[2017-07-04 17:45] LABS: BLOOD UREA NITROGEN 27 mg/dL (7-21); CALCIUM 8.4 mg/dL (8.4-10.5); CARBON DIOXIDE 20 mmol/L (21-33); CHLORIDE 113 mmol/L (98-107); GFR AFRICAN-AMERICAN > 60; GLUCOSE,RANDOM 91 mg/dL (70-110); POTASSIUM 4.1 mmol/L (3.6-5.0); SODIUM 142 mmol/L (132-148); TOTAL PROTEIN 5.6 g/dL (5.8-8.3)
[2017-07-04 17:46] LABS: ALB/GLOB RATIO 1.3 (1.1-1.8); ALKALINE PHOSPHATASE 61 U/L (38-126); ALT/SGPT 25 U/L (7-56); AST/SGOT 20 U/L (14-36); BILIRUBIN,TOTAL 0.2 mg/dL (0.2-1.3)
[2017-07-04] MEDS: Sodium Chloride 0.9% 1,000 ML IV SCH (18:39)
[2017-07-05] MEDS: Apap-Butalbital-Caffeine 325-50-40mg Tab PO PRN ×6 (00:14→21:51)
[2017-07-05] MEDS: HYDROmorphone 0.5 mg/0.5 ml ISec IVP PRN ×4 (03:41→20:29)
[2017-07-05 06:40] LABS: BASO # 0.03 K/mm3 (0.0-2.0); BASO % 0.8 % (0.0-3.0); EOS # 0.2 (0.0-0.7); EOS % 4.3 % (1.5-5.0); GRAN # 0.76 (1.4-6.5); GRAN % 20.7 % (50.0-68.0); HEMATOCRIT 25.2 % (36.0-48.0); LYMPH # 2.5 (1.2-3.4); LYMPH % 67.7 % (22.0-35.0); MEAN CORPUSCULAR HEMOGLOBIN 24.5 pg (25.0-35.0); MEAN PLATELET VOLUME 10.3 fl (7.0-11.0); MONO # 0.2 (0.1-0.6); MONO % 6.5 % (1.0-6.0); RED CELL DISTRIBUTION WIDTH 16.7 % (11.5-14.5); WHITE BLOOD COUNT 3.7 10^3/ul (4.5-11.0)
[2017-07-05 07:08] LABS: ALB/GLOB RATIO 1.2 (1.1-1.8); ALKALINE PHOSPHATASE 61 U/L (38-126); ALT/SGPT 28 U/L (7-56); AST/SGOT 20 U/L (14-36); BILIRUBIN,TOTAL 0.2 mg/dL (0.2-1.3); BLOOD UREA NITROGEN 19 mg/dL (7-21); CALCIUM 8.2 mg/dL (8.4-10.5); CARBON DIOXIDE 22 mmol/L (21-33); CHLORIDE 116 mmol/L (98-107); GFR AFRICAN-AMERICAN > 60; GLUCOSE,RANDOM 81 mg/dL (70-110); POTASSIUM 4.1 mmol/L (3.6-5.0); SODIUM 143 mmol/L (132-148)
--- NOTE | 2017-07-05 08:31 | CP.PCM.PN ---
<Liborio Dewitt - Last Filed: 07/05/17 09:52> Subjective - Date & Time of Evaluation Date of Evaluation: 07/05/17 Time of Evaluation: 07:45 - Subjective Subjective: PGY5 GI Follow-up Pt seen and examined bedside Still complaining of abdominal discomfort denies any BM started golytly yesterday, only finished 1/2 tolerating liquid Denies any nausea and vomiting ROS: 10 point ROS conducted neg other than above Objective - Vital Signs/Intake and Output Vital Signs (last 24 hours): Temp Pulse Resp BP Pulse Ox 98.7 F 70 20 131/89 94 L 07/05/17 07:40 07/05/17 07:40 07/05/17 07:40 07/05/17 07:40 07/05/17 07:40 Intake and Output: 07/05/17 07/05/17 06:59 18:59 Intake Total 600 Balance 600 - Medications Medications: Current Medications Acetaminophen (Tylenol 325mg Tab) 650 mg PO Q4 PRN PRN Reason: Pain, moderate (4-7) Acetaminophen/Butalbital/Caffeine (Fioricet) 1 tab PO Q4H PRN PRN Reason: Migraine headache Last Admin: 07/05/17 03:48 Dose: 1 tab Alprazolam (Xanax) 1 mg PO TID PRN; Protocol PRN Reason: Anxiety Last Admin: 07/05/17 05:28 Dose: 1 mg Famotidine (Pepcid) 20 mg IVP DAILY [facility] Last Admin: 07/04/17 10:20 Dose: 20 mg Hydralazine HCl (Apresoline) 10 mg IVP Q6 PRN PRN Reason: Systolic Blood Pressure Hydromorphone HCl (Dilaudid) 0.5 mg IVP Q6H PRN PRN Reason: Pain, moderate (4-7) Last Admin: 07/05/17 03:41 Dose: 0.5 mg Sodium Chloride (Sodium Chloride 0.9%) 1,000 mls @ 100 mls/hr IV .Q10H [facility] Last Admin: 07/04/17 18:39 Dose: 100 mls/hr Lactobacillus Acidophilus (Bacid Acidophilus) 1 cap PO BID [facility] Last Admin: 07/04/17 16:59 Dose: 1 cap Levetiracetam (Keppra) 500 mg PO BID [facility] Last Admin: 07/04/17 17:00 Dose: 500 mg Metoprolol Tartrate (Lopressor) 25 mg PO BID [facility] Last Admin: 07/04/17 17:00 Dose: 25 mg Mirtazapine (Remeron) 45 mg PO [facility] Last Admin: 07/04/17 21:31 Dose: 45 mg Ondansetron HCl (Zofran Inj) 4 mg IVP Q6H PRN PRN Reason: Nausea/Vomiting Last Admin: 07/04/17 18:39 Dose: 4 mg Quetiapine Fumarate (Seroquel) 100 mg PO [facility] PRN Reason: Protocol Last Admin: 07/04/17 21:30 Dose: 100 mg - Labs Labs: 07/05/17 06:20 07/05/17 06:20 - Constitutional Appears: Well, No Acute Distress - Head Exam Head Exam: ATRAUMATIC, NORMOCEPHALIC - Eye Exam Eye Exam: Normal appearance - ENT Exam ENT Exam: Mucous Membranes Moist - Respiratory Exam Respiratory Exam: Clear to Ausculation Bilateral, NORMAL BREATHING PATTERN. absent: Rales, Rhonchi, Wheezes, Respiratory Distress - Cardiovascular Exam Cardiovascular Exam: REGULAR RHYTHM, +S1, +S2 - GI/Abdominal Exam GI & Abdominal Exam: Soft, Tenderness (upper and lower quadrants), Hypoactive Bowel Sounds. absent: Hyperactive Bowel Sounds, Organomegaly - Extremities Exam Extremities Exam: absent: Joint Swelling, Pedal Edema - Neurological Exam Neurological Exam: Alert, Awake, Oriented x3 - Psychiatric Exam Psychiatric exam: Flat Affect, Normal Affect, Normal Mood - Skin Skin Exam: Dry, Intact, Normal Color, Warm Assessment and Plan - Assessment and Plan (Free Text) Assessment: Clara Ortiz is a 51 year old female with h/o PUD s/p Billroth II, Gastroparesis, chronic narcotic use presents with abdominal pain and distention. CT abdomen revealed severe constipation with fecal burden extending into the small bowel. 1. Opiod induced constipation/illeus 2. Abdominal pain 3. Gastroparesis Plan: -CT reviewed, severe stool burden all the way to small bowel -finish golytely -continue clear liquid diet -s/p relistor -supportive care in the meantime -if no BM after finishing golytly, will consider repeating -advise daily bowel regiment at home -continue clears for now -fleet enema x1 D/W Dr. Okeefe <MaldonadoJarethLucien Y - Last Filed: 07/05/17 11:54> Objective - Vital Signs/Intake and Output Vital Signs (last 24 hours): Temp Pulse Resp BP Pulse Ox 98.7 F 70 20 131/89 94 L 07/05/17 07:40 07/05/17 07:40 07/05/17 07:40 07/05/17 09:11 07/05/17 07:40 Intake and Output: 07/05/17 07/05/17 06:59 18:59 Intake Total 600 Balance 600 - Medications Medications: Current Medications Acetaminophen (Tylenol 325mg Tab) 650 mg PO Q4 PRN PRN Reason: Pain, moderate (4-7) Acetaminophen/Butalbital/Caffeine (Fioricet) 1 tab PO Q4H PRN PRN Reason: Migraine headache Last Admin: 07/05/17 09:09 Dose: 1 tab Alprazolam (Xanax) 1 mg PO TID PRN; Protocol PRN Reason: Anxiety Last Admin: 07/05/17 05:28 Dose: 1 mg Famotidine (Pepcid) 20 mg IVP DAILY [facility] Last Admin: 07/05/17 09:09 Dose: 20 mg Hydralazine HCl (Apresoline) 10 mg IVP Q6 PRN PRN Reason: Systolic Blood Pressure Hydromorphone HCl (Dilaudid) 0.5 mg IVP Q6H PRN PRN Reason: Pain, moderate (4-7) Last Admin: 07/05/17 09:12 Dose: 0.5 mg Sodium Chloride (Sodium Chloride 0.9%) 1,000 mls @ 100 mls/hr IV .Q10H [facility] Last Admin: 07/04/17 18:39 Dose: 100 mls/hr Lactobacillus Acidophilus (Bacid Acidophilus) 1 cap PO BID [facility] Last Admin: 07/05/17 09:12 Dose: 1 cap Levetiracetam (Keppra) 500 mg PO BID [facility] Last Admin: 07/05/17 09:12 Dose: 500 mg Metoprolol Tartrate (Lopressor) 25 mg PO BID [facility] Last Admin: 07/05/17 09:11 Dose: 25 mg Mirtazapine (Remeron) 45 mg PO HS [facility] Last Admin: 12/17/17 21:31 Dose: 45 mg Ondansetron HCl (Zofran Inj) 4 mg IVP Q6H PRN PRN Reason: Nausea/Vomiting Last Admin: 07/04/17 18:39 Dose: 4 mg Quetiapine Fumarate (Seroquel) 100 mg PO HS [facility] PRN Reason: Protocol Last Admin: 07/04/17 21:30 Dose: 100 mg - Labs Labs: 07/05/17 06:20 07/05/17 06:20 Attending/Attestation - Attestation I have personally seen and examined this patient.: Yes I have fully participated in the care of the patient.: Yes I have reviewed all pertinent clinical information, including history, physical exam and plan: Yes Notes (Text): 07/05/17 11:51 I have seen and examined patient with GI fellow. No acute events overnight, she is seen resting in bed appears comfortable. She did have a small bowel movement last night following administration of relistor. She denies abdominal pain, nausea, vomiting. Tolerating PO liquids without difficulty. Review of vitals from this morning are normal. History of PUD s/p Bilroth complicated by development of gastroparesis DM Constipation, s/p relistor use yesterday - Liquid diet as tolerated - CT imaging reviewed by me showing extensive fecal retention, administer enema today - Continue with golytely, maintain aggressive bowel regimen to prevent constipation - Limit use of narcotic pain medication - If no significant bowel movement, would consider repeat dose of relistor tomorrow - Will continue to monitor patient clinical course
[2017-07-05] MEDS: Lactobacillus Acidophilus 500 MU Cap PO SCH ×2 (09:12→17:03)
--- NOTE | 2017-07-05 12:32 | CP.PCM.PN ---
<Preston Butts - Last Filed: 07/05/17 12:58> Subjective - Date & Time of Evaluation Date of Evaluation: 07/05/17 Time of Evaluation: 07:30 - Subjective Subjective: Patient seen and examined at bedside with no acute complaints overnight. States this is the first night she was able to get a lot of sleep. States that still has some bilateral lower quadrant abdominal tenderness which has improved since course of hospital stay. Admits to three episodes of loose stools within the past 24 hours which has improved from her 8-12 episodes she was experiencing prior to being admitted. States that she was told she must her stress test done as inpatient by Dr. Horan. Discussed with Dr. Horan who said he told the patient that she should do it as outpatient but if she can't she could ask the internal medicine team if they would want her to do it as inpatient. Considering patient is here with complaint of abdominal pain and no chest pain at this time, was discussed with patient that stress should be done as outpatient. Patient denies chest pain, shortness of breath, vomiting, fever, chills, cough. Objective - Vital Signs/Intake and Output Vital Signs (last 24 hours): Temp Pulse Resp BP Pulse Ox 98.7 F 70 20 131/89 94 L 07/05/17 07:40 07/05/17 07:40 07/05/17 07:40 07/05/17 09:11 07/05/17 07:40 Intake and Output: 07/05/17 07/05/17 06:59 18:59 Intake Total 600 Balance 600 - Medications Medications: Current Medications Acetaminophen (Tylenol 325mg Tab) 650 mg PO Q4 PRN PRN Reason: Pain, moderate (4-7) Acetaminophen/Butalbital/Caffeine (Fioricet) 1 tab PO Q4H PRN PRN Reason: Migraine headache Last Admin: 07/05/17 09:09 Dose: 1 tab Alprazolam (Xanax) 1 mg PO TID PRN; Protocol PRN Reason: Anxiety Last Admin: 07/05/17 05:28 Dose: 1 mg Famotidine (Pepcid) 20 mg IVP DAILY [facility] Last Admin: 07/05/17 09:09 Dose: 20 mg Hydralazine HCl (Apresoline) 10 mg IVP Q6 PRN PRN Reason: Systolic Blood Pressure Hydromorphone HCl (Dilaudid) 0.5 mg IVP Q6H PRN PRN Reason: Pain, moderate (4-7) Last Admin: 07/05/17 09:12 Dose: 0.5 mg Sodium Chloride (Sodium Chloride 0.9%) 1,000 mls @ 100 mls/hr IV .Q10H [facility] Last Admin: 07/04/17 18:39 Dose: 100 mls/hr Lactobacillus Acidophilus (Bacid Acidophilus) 1 cap PO BID [facility] Last Admin: 07/05/17 09:12 Dose: 1 cap Levetiracetam (Keppra) 500 mg PO BID [facility] Last Admin: 07/05/17 09:12 Dose: 500 mg Metoprolol Tartrate (Lopressor) 25 mg PO BID [facility] Last Admin: 07/05/17 09:11 Dose: 25 mg Mirtazapine (Remeron) 45 mg PO [facility] Last Admin: 07/04/17 21:31 Dose: 45 mg Ondansetron HCl (Zofran Inj) 4 mg IVP Q6H PRN PRN Reason: Nausea/Vomiting Last Admin: 07/05/17 11:52 Dose: 4 mg Quetiapine Fumarate (Seroquel) 100 mg PO [facility] PRN Reason: Protocol Last Admin: 07/04/17 21:30 Dose: 100 mg - Labs Labs: 07/05/17 06:20 07/05/17 06:20 - Constitutional Appears: Non-toxic, No Acute Distress - Head Exam Head Exam: ATRAUMATIC, NORMAL INSPECTION, NORMOCEPHALIC - Eye Exam Eye Exam: EOMI, Normal appearance - ENT Exam ENT Exam: Mucous Membranes Moist, Normal Exam - Neck Exam Neck Exam: Full ROM, Normal Inspection - Respiratory Exam Respiratory Exam: Clear to Ausculation Bilateral, NORMAL BREATHING PATTERN. absent: Rhonchi, Wheezes - Cardiovascular Exam Cardiovascular Exam: RRR, +S1, +S2. absent: Bradycardia, Tachycardia, Clicks, Gallop, Murmur - GI/Abdominal Exam GI & Abdominal Exam: Soft, Tenderness, Normal Bowel Sounds. absent: Firm, Guarding, Rigid, Mass - Back Exam Back Exam: NORMAL INSPECTION - Neurological Exam Neurological Exam: Alert, Awake, Oriented x3 - Psychiatric Exam Psychiatric exam: Normal Affect, Normal Mood - Skin Skin Exam: Intact, Normal Color, Warm Assessment and Plan - Assessment and Plan (Free Text) Assessment: Assessment and Plan: Patient is a 51 year old female with past medical history of gastroparesis, HTN , seizure disorders on keppra, GERD, migraines, polysubstance abuse, anemia, anxiety, and PTSD who was admitted for evaluation and treatment of localized RLQ /LLQ abdominal pain and diarrhea. Plan: 1. Abdominal Pain; Diarrhea; Enteritis; Gastroparesis - CT of the Abd/Pelvis noted and appreciated- Gastric surgery with gastrojejunostomy, enteritis; constipation; distended small bowel and fecalization of distal and terminal ileum; prominent common duct - C. diff toxin and antigen ordered; results pending - IVF @ 100 - Clear liquid diet - GI on board; regarding constipation:fleet edema x1, patient placed on golytely. Recommends continuation of liquid diet and continued supportive care - Will discuss with GI regarding follow up appt/ medications for discharge pending resolving of symptoms 2. Hx of Anemia - H/H: 7.8/25.2 down from 9.1/29.3 upon being admitted - Type and screened - monitor closely via CBC - consider iron, tibc, ferritin, peripheral smear pending patients clinical course 3. Hx of Htn - c/w metoprolol - hydralazine 10 mg IV q6 prn SBP > 180, holding parameters- do not administer if HR is > 100 bpm 4. Hx of Questionable Hyperlipidemia - does not take statin at home - states that HPL was an official diagnosis - lipid profile pending 5. Hx of Seizure Disorder - continue with home Keppra - seizure precautions 6. Anxiety Disorder, PTSD, Insomnia - continue with Xanax - continue with Seroquel - continue with Remeron 7. Prophylaxis - DVT ppx- subq heparin as per lexx score - GI ppx- famotidine <Vikram Oh - Last Filed: 07/05/17 16:58> Objective - Vital Signs/Intake and Output Vital Signs (last 24 hours): Temp Pulse Resp BP Pulse Ox 98.2 F 69 20 144/92 H 95 07/05/17 16:00 07/05/17 16:00 07/05/17 16:00 07/05/17 16:00 07/05/17 16:00 Intake and Output: 07/05/17 07/05/17 06:59 18:59 Intake Total 600 Balance 600 - Medications Medications: Current Medications Acetaminophen (Tylenol 325mg Tab) 650 mg PO Q4 PRN PRN Reason: Pain, moderate (4-7) Acetaminophen/Butalbital/Caffeine (Fioricet) 1 tab PO Q4H PRN PRN Reason: Migraine headache Last Admin: 07/05/17 13:02 Dose: 1 tab Alprazolam (Xanax) 1 mg PO TID PRN; Protocol PRN Reason: Anxiety Last Admin: 07/05/17 13:02 Dose: 1 mg Famotidine (Pepcid) 20 mg IVP DAILY [facility] Last Admin: 07/05/17 09:09 Dose: 20 mg Hydralazine HCl (Apresoline) 10 mg IVP Q6 PRN PRN Reason: Systolic Blood Pressure Hydromorphone HCl (Dilaudid) 0.5 mg IVP Q6H PRN PRN Reason: Pain, moderate (4-7) Last Admin: 07/05/17 14:54 Dose: 0.5 mg Sodium Chloride (Sodium Chloride 0.9%) 1,000 mls @ 100 mls/hr IV .Q10H [facility] Last Admin: 07/05/17 14:55 Dose: 100 mls/hr Lactobacillus Acidophilus (Bacid Acidophilus) 1 cap PO BID [facility] Last Admin: 07/05/17 09:12 Dose: 1 cap Levetiracetam (Keppra) 500 mg PO BID [facility] Last Admin: 07/05/17 09:12 Dose: 500 mg Metoprolol Tartrate (Lopressor) 25 mg PO BID [facility] Last Admin: 07/05/17 09:11 Dose: 25 mg Mirtazapine (Remeron) 45 mg PO HS [facility] Last Admin: 07/04/17 21:31 Dose: 45 mg Ondansetron HCl (Zofran Inj) 4 mg IVP Q6H PRN PRN Reason: Nausea/Vomiting Last Admin: 07/05/17 11:52 Dose: 4 mg Quetiapine Fumarate (Seroquel) 100 mg PO HS [facility] PRN Reason: Protocol Last Admin: 07/04/17 21:30 Dose: 100 mg - Labs Labs: 07/05/17 06:20 07/05/17 06:20 Attending/Attestation - Attestation I have personally seen and examined this patient.: Yes I have fully participated in the care of the patient.: Yes I have reviewed all pertinent clinical information, including history, physical exam and plan: Yes Notes (Text): 07/05/17 16:55 Patient was seen and examined with medical technicians. Agreed with resident assessment and plan. 51 year old female with past medical history of gastroparesis, HTN, seizure disorders on keppra, GERD, migraines, polysubstance abuse, anemia, anxiety, and PTSD is admitted with abdominal pain and constipation, Patient is still c/o abdominal pain but is improving.She is getting Golyte Jesse, tolerating full liquid diet GI follow up is appreciated. Non anion gap Metabolic acidosis has resolved. There is no acue cardiac issue going on at this time.Patient does not need any inpatient stress test, will need out patient stress testonce acute process is resolved. Management plan was discussed in detail with patient Education was provided. 07/05/17 16:58
[2017-07-05] MEDS: Sodium Chloride 0.9% 1,000 ML IV SCH ×2 (14:55→20:29)
[2017-07-06] MEDS: Sodium Chloride 0.9% 1,000 ML IV SCH ×2 (01:19→06:09)
[2017-07-06] MEDS: HYDROmorphone 0.5 mg/0.5 ml ISec IVP PRN ×2 (02:29→09:02)
[2017-07-06 06:24] LABS: BASO # 0.04 K/mm3 (0.0-2.0); BASO % 0.9 % (0.0-3.0); EOS # 0.2 (0.0-0.7); EOS % 4.4 % (1.5-5.0); GRAN # 1.32 (1.4-6.5); GRAN % 30.4 % (50.0-68.0); HEMATOCRIT 25.1 % (36.0-48.0); LYMPH # 2.5 (1.2-3.4); LYMPH % 56.5 % (22.0-35.0); MEAN CELL VOLUME 78.7 fl (80.0-105.0); MEAN CORPUSCULAR HEMOGLOBIN 24.8 pg (25.0-35.0); MEAN CORPUSCULAR HGB CONC 31.5 g/dl (31.0-37.0); MEAN PLATELET VOLUME 9.7 fl (7.0-11.0); MONO # 0.3 (0.1-0.6); MONO % 7.8 % (1.0-6.0); RED CELL DISTRIBUTION WIDTH 16.4 % (11.5-14.5); WHITE BLOOD COUNT 4.3 10^3/ul (4.5-11.0)
[2017-07-06 06:42] VITALS: O2SAT 94
[2017-07-06 07:06] LABS: ALB/GLOB RATIO 1.2 (1.1-1.8); ALKALINE PHOSPHATASE 61 U/L (38-126); ALT/SGPT 31 U/L (7-56); AST/SGOT 21 U/L (14-36); BILIRUBIN,TOTAL 0.2 mg/dL (0.2-1.3); BLOOD UREA NITROGEN 12 mg/dL (7-21); CALCIUM 8.4 mg/dL (8.4-10.5); CARBON DIOXIDE 24 mmol/L (21-33); CHLORIDE 114 mmol/L (98-107); GFR AFRICAN-AMERICAN > 60; GLUCOSE,RANDOM 93 mg/dL (70-110); SODIUM 143 mmol/L (132-148); TOTAL PROTEIN 5.2 g/dL (5.8-8.3)
[2017-07-06] MEDS: Lactobacillus Acidophilus 500 MU Cap PO SCH ×2 (09:02→17:24)
[2017-07-06] MEDS ORDERED: POLYETHYLENE GLYCOL 3350 17 GM/Dose PACKET PO SCH (10:00)
[2017-07-06] MEDS ORDERED: Bisacodyl 5mg EC Tab PO ONE (10:00)
--- NOTE | 2017-07-06 10:30 | CP.PCM.PN ---
<Liborio Dewitt - Last Filed: 07/06/17 12:29> Subjective - Date & Time of Evaluation Date of Evaluation: 07/06/17 Time of Evaluation: 07:00 - Subjective Subjective: PGY 4 GI Follow-up Pt seen and examined bedside Had sig BM as per pt, she notes soft liquidly stool She only finished 3/4 of goltyl in 2 days she still has lower quadrant pain B/L, only slight improvement since admission denies any nausea and vomiting wants to advance diet ROS: 10 point ROS conducted neg, other than above Objective - Vital Signs/Intake and Output Vital Signs (last 24 hours): Temp Pulse Resp BP Pulse Ox 98.5 F 65 17 153/88 H 94 L 07/06/17 08:33 07/06/17 08:33 07/06/17 08:33 07/06/17 08:33 07/06/17 08:33 Intake and Output: 07/06/17 07/06/17 06:59 18:59 Intake Total 1620 Output Total 402 Balance 1218 - Medications Medications: Current Medications Acetaminophen (Tylenol 325mg Tab) 650 mg PO Q4 PRN PRN Reason: Pain, moderate (4-7) Acetaminophen/Butalbital/Caffeine (Fioricet) 1 tab PO Q4H PRN PRN Reason: Migraine headache Last Admin: 07/05/17 21:51 Dose: 1 tab Alprazolam (Xanax) 1 mg PO TID PRN; Protocol PRN Reason: Anxiety Last Admin: 07/05/17 20:29 Dose: 1 mg Famotidine (Pepcid) 20 mg IVP DAILY [facility] Last Admin: 07/06/17 09:02 Dose: 20 mg Hydralazine HCl (Apresoline) 10 mg IVP Q6 PRN PRN Reason: Systolic Blood Pressure Hydromorphone HCl (Dilaudid) 0.5 mg IVP Q6H PRN PRN Reason: Pain, moderate (4-7) Last Admin: 07/06/17 09:02 Dose: 0.5 mg Sodium Chloride (Sodium Chloride 0.9%) 1,000 mls @ 100 mls/hr IV .Q10H [facility] Last Admin: 07/06/17 06:09 Dose: 100 mls/hr Lactobacillus Acidophilus (Bacid Acidophilus) 1 cap PO BID [facility] Last Admin: 07/06/17 09:02 Dose: 1 cap Levetiracetam (Keppra) 500 mg PO BID [facility] Last Admin: 07/06/17 09:02 Dose: 500 mg Metoprolol Tartrate (Lopressor) 25 mg PO BID [facility] Last Admin: 07/06/17 09:02 Dose: 25 mg Mirtazapine (Remeron) 45 mg PO [facility] Last Admin: 07/05/17 21:51 Dose: 45 mg Ondansetron HCl (Zofran Inj) 4 mg IVP Q6H PRN PRN Reason: Nausea/Vomiting Last Admin: 07/05/17 11:52 Dose: 4 mg Polyethylene Glycol (Miralax) 17 gm PO BID [facility] Quetiapine Fumarate (Seroquel) 100 mg PO [facility] PRN Reason: Protocol Last Admin: 07/05/17 21:51 Dose: 100 mg Sennosides (Senokot Tab) 17.2 mg PO [facility] - Labs Labs: 07/06/17 05:30 07/06/17 05:30 - Constitutional Appears: Well, No Acute Distress - Head Exam Head Exam: ATRAUMATIC, NORMOCEPHALIC - Eye Exam Eye Exam: Normal appearance - ENT Exam ENT Exam: Mucous Membranes Moist - Respiratory Exam Respiratory Exam: Clear to Ausculation Bilateral, NORMAL BREATHING PATTERN. absent: Rales, Rhonchi, Wheezes, Respiratory Distress - GI/Abdominal Exam GI & Abdominal Exam: Soft, Tenderness, Normal Bowel Sounds. absent: Firm, Guarding, Rigid, Rebound Additional comments: left and right lower quadrants - Extremities Exam Extremities Exam: absent: Joint Swelling, Pedal Edema - Neurological Exam Neurological Exam: Alert, Awake, Oriented x3 - Psychiatric Exam Psychiatric exam: Normal Affect, Normal Mood - Skin Skin Exam: Intact, Normal Color, Warm Assessment and Plan - Assessment and Plan (Free Text) Assessment: Clara Ortiz is a 51 year old female with h/o PUD s/p Billroth II, Gastroparesis, chronic narcotic use presents with abdominal pain and distention. CT abdomen revealed severe constipation with fecal burden extending into the small bowel. 1. Opiod induced constipation/illeus 2. Abdominal pain 3. Gastroparesis Plan: -CT reviewed, severe stool burden all the way to small bowel -completed golytely -s/p relistor -supportive care in the meantime -start miralax and senna daily -advise daily bowel regiment at home -advance diet as tolerated D/W Dr. Humphrey <Gian Humphrey - Last Filed: 07/06/17 13:05> Objective - Vital Signs/Intake and Output Vital Signs (last 24 hours): Temp Pulse Resp BP Pulse Ox 98.5 F 65 17 153/88 H 94 L 07/06/17 08:33 07/06/17 08:33 07/06/17 08:33 07/06/17 08:33 07/06/17 08:33 Intake and Output: 07/06/17 07/06/17 06:59 18:59 Intake Total 1620 Output Total 402 Balance 1218 - Medications Medications: Current Medications Acetaminophen (Tylenol 325mg Tab) 650 mg PO Q4 PRN PRN Reason: Pain, moderate (4-7) Acetaminophen/Butalbital/Caffeine (Fioricet) 1 tab PO Q4H PRN PRN Reason: Migraine headache Last Admin: 07/05/17 21:51 Dose: 1 tab Alprazolam (Xanax) 1 mg PO TID PRN; Protocol PRN Reason: Anxiety Last Admin: 07/06/17 12:07 Dose: 1 mg Famotidine (Pepcid) 20 mg IVP DAILY [facility] Last Admin: 07/06/17 09:02 Dose: 20 mg Hydralazine HCl (Apresoline) 10 mg IVP Q6 PRN PRN Reason: Systolic Blood Pressure Sodium Chloride (Sodium Chloride 0.9%) 1,000 mls @ 100 mls/hr IV .Q10H [facility] Last Admin: 07/06/17 06:09 Dose: 100 mls/hr Lactobacillus Acidophilus (Bacid Acidophilus) 1 cap PO BID [facility] Last Admin: 07/06/17 09:02 Dose: 1 cap Levetiracetam (Keppra) 500 mg PO BID [facility] Last Admin: 07/06/17 09:02 Dose: 500 mg Metoprolol Tartrate (Lopressor) 25 mg PO BID [facility] Last Admin: 07/06/17 09:02 Dose: 25 mg Mirtazapine (Remeron) 45 mg PO HS [facility] Last Admin: 07/05/17 21:51 Dose: 45 mg Ondansetron HCl (Zofran Inj) 4 mg IVP Q6H PRN PRN Reason: Nausea/Vomiting Last Admin: 07/05/17 11:52 Dose: 4 mg Polyethylene Glycol (Miralax) 17 gm PO BID [facility] Last Admin: 07/06/17 10:49 Dose: 17 gm Quetiapine Fumarate (Seroquel) 100 mg PO HS [facility] PRN Reason: Protocol Last Admin: 07/05/17 21:51 Dose: 100 mg Sennosides (Senokot Tab) 17.2 mg PO HS [facility] - Labs Labs: 07/06/17 05:30 07/06/17 05:30 Attending/Attestation - Attestation I have personally seen and examined this patient.: Yes I have fully participated in the care of the patient.: Yes I have reviewed all pertinent clinical information, including history, physical exam and plan: Yes Notes (Text): 07/06/17 13:04 51 year old female with h/o PUD s/p Billroth II, Gastroparesis, chronic narcotic use admitted abdominal pain and distention, found to have severe constipation with fecal burden extending into the small bowel. 1. Opiod induced constipation 2. Abdominal pain 3. Gastroparesis Plan: -patient unable to complete golytely -rx mag citrate -rx miralax bid to go home with or preferably amitiza 24 mcg bid if covered by insurance -diet as tolerated -ok for discharge from GI standpoint
[2017-07-06] MEDS ORDERED: Magnesium Citrate Oral SOL (300 ml) PO ONE (12:30)
--- NOTE | 2017-07-06 13:38 | CP.PCM.DIS ---
Provider - Provider Date of Admission: 07/05/17 14:00 Attending physician: Vikram Oh MD Consults: Gastroenterology: [facility] Course - Lab Results Lab Results: Most Recent Lab Values WBC 4.3 10^3/ul (4.5-11.0) L 07/06/17 05:30 RBC 3.19 10^6/uL (3.5-6.1) L 07/06/17 05:30 Hgb 7.9 g/dL (12.0-16.0) L 07/06/17 05:30 Hct 25.1 % (36.0-48.0) L 07/06/17 05:30 MCV 78.7 fl (80.0-105.0) L 07/06/17 05:30 MCH 24.8 pg (25.0-35.0) L 07/06/17 05:30 MCHC 31.5 g/dl (31.0-37.0) 07/06/17 05:30 RDW 16.4 % (11.5-14.5) H 07/06/17 05:30 Plt Count 253 10^3/uL (120.0-450.0) 07/06/17 05:30 MPV 9.7 fl (7.0-11.0) 07/06/17 05:30 Gran % 30.4 % (50.0-68.0) L 07/06/17 05:30 Lymph % (Auto) 56.5 % (22.0-35.0) H 07/06/17 05:30 [place] % (Auto) 7.8 % (1.0-6.0) H 07/06/17 05:30 Eos % (Auto) 4.4 % (1.5-5.0) 07/06/17 05:30 Baso % (Auto) 0.9 % (0.0-3.0) 07/06/17 05:30 Gran # 1.32 (1.4-6.5) L 07/06/17 05:30 Lymph # 2.5 (1.2-3.4) 07/06/17 05:30 [place] # 0.3 (0.1-0.6) 07/06/17 05:30 Eos # 0.2 (0.0-0.7) 07/06/17 05:30 Baso # 0.04 K/mm3 (0.0-2.0) 07/06/17 05:30 pCO2 37 mm/Hg (35-45) 07/04/17 11:32 pO2 91.0 mm/Hg (80-100) 07/04/17 11:32 HCO3 18.2 mmol/L (21-28) L 07/04/17 11:32 ABG pH 7.30 (7.35-7.45) L 07/04/17 11:32 ABG Total CO2 19.3 mmol.L (22-28) L 07/04/17 11:32 ABG O2 Saturation 98.5 % (95-98) H 07/04/17 11:32 ABG O2 Content 9.9 ML/dl (15-23) L 07/04/17 11:32 ABG Base Excess -7.6 mmol/L (-2.0-3.0) L 07/04/17 11:32 ABG Hemoglobin 7.3 g/dL (11.7-17.4) L 07/04/17 11:32 ABG Carboxyhemoglobin 2.7 % (0.5-1.5) H 07/04/17 11:32 POC ABG HHb (Measured) 1.4 % (0-5) 07/04/17 11:32 ABG Methemoglobin 1.6 % (0.0-3.0) 07/04/17 11:32 ABG O2 Capacity 10.1 mL/dl (16-24) L 07/04/17 11:32 VBG pH 7.29 (7.32-7.43) L 07/04/17 02:35 VBG pCO2 35.0 (40-60) L 07/04/17 02:35 VBG HCO3 16.8 mmol/l (21-28) L 07/04/17 02:35 VBG Total CO2 17.9 mmol.L (22-28) L 07/04/17 02:35 VBG O2 Sat (Calc) 99.7 % (40-65) H 07/04/17 02:35 VBG Base Excess -8.9 mmol/L (0.0-2.0) L 07/04/17 02:35 VBG Potassium 5.5 mmol/L (3.6-5.2) H 07/04/17 02:35 Hgb O2 Saturation 94.3 % (95.0-98.0) L 07/04/17 11:32 Sodium 138.0 mmol/L (132-148) 07/04/17 02:35 Chloride 119.0 mmol/L (98-107) H 07/04/17 02:35 Glucose 102 mg/dl (65-105) 07/04/17 02:35 Lactate 0.9 mmol/L (0.7-2.1) 07/04/17 02:35 FiO2 21.0 % 07/04/17 11:32 Sodium 143 mmol/L (132-148) 07/06/17 05:30 Potassium 4.0 mmol/L (3.6-5.0) 07/06/17 05:30 Chloride 114 mmol/L (98-107) H 07/06/17 05:30 Carbon Dioxide 24 mmol/L (21-33) 07/06/17 05:30 Anion Gap 10 (10-20) 07/06/17 05:30 BUN 12 mg/dL (7-21) 07/06/17 05:30 Creatinine 0.8 mg/dl (0.7-1.2) 07/06/17 05:30 Est GFR ( Amer) > 60 07/06/17 05:30 Est GFR (Non-Af Amer) > 60 07/06/17 05:30 POC Glucose (mg/dL) 75 mg/dL (65-110) 07/06/17 12:35 Random Glucose 93 mg/dL (70-110) 07/06/17 05:30 Calcium 8.4 mg/dL (8.4-10.5) 07/06/17 05:30 Total Bilirubin 0.2 mg/dL (0.2-1.3) 07/06/17 05:30 AST 21 U/L (14-36) 07/06/17 05:30 ALT 31 U/L (7-56) 07/06/17 05:30 Alkaline Phosphatase 61 U/L (38-126) 07/06/17 05:30 Lactate Dehydrogenase 398 U/L (333-699) 07/03/17 20:20 Total Creatine Kinase 42 U/L (35-230) 07/03/17 20:20 Troponin I < 0.01 ng/mL 07/03/17 20:20 Total Protein 5.2 g/dL (5.8-8.3) L 07/06/17 05:30 Albumin 2.8 g/dL (3.0-4.8) L 07/06/17 05:30 Globulin 2.4 gm/dL 07/06/17 05:30 Albumin/Globulin Ratio 1.2 (1.1-1.8) 07/06/17 05:30 Lipase 60 U/L (23-300) 07/03/17 20:20 Venous Blood Potassium 5.5 mmol/L (3.6-5.2) H 07/04/17 02:35 Blood Type A POSITIVE 07/05/17 13:18 Antibody Screen Negative 07/05/17 13:18 BBK History Checked Patient has bt 07/05/17 13:18 - Hospital Course Hospital Course: Patient is a 51 year old female with a past medical history of gastroparesis, polysubstance abuse, hypertension, GERD, PUD s/p bilroth II, migraines, anxiety who presented to ED for bilateral lower quadrant abdominal pain which was going on for two weeks. During course of hospital visit CT abdomen and pelvis was ordered which revealed evidence of gastric surgery with gastrojejunostomy, persistent jejunal wall thickening suggesting enteritis; constipation; distended small bowel and fecalization of distal and terminal ileum most likely due to constipation; as well as prominent common duct status post cholecystectomy. Gastroenterology was consulted and recommended golytely and clear liquid diet which patient consumed and tolerated. Relistor was given considering patient's history of poylsubstance abuse. Diet advancement was recommended by GI as well as starting miralax and senna daily with daily bowel regiment at home. From a medical standpoint patient's labs were significant for anemia which was most likely due to hemodilution with increased fluid intake and is improving. Patient was Discharge Exam - Head Exam Head Exam: ATRAUMATIC, NORMOCEPHALIC Discharge Plan - Discharge Medications Prescriptions: Magnesium Citrate [[facility] Magnesium Citrate] 300 ml PO DAILY 5 Days #5 bottle Polyethylene Glycol 3350 [Miralax] 17 gm PO BID 30 Days #30 ml - Follow Up Plan Condition: STABLE Disposition: HOME/ ROUTINE Instructions: Abdominal Pain (ED), Gastroparesis (DC) Additional Instructions: If you experience any worsening of symptoms such as unrelenting pain, vomiting, fever, chills contact your doctor or come back to the emergency room. 1. Follow up with PMD in [place]. 2. Follow up with [facility] for motility study. 3. Avoid opiates. 4. Fill and take medications as prescribed. Referrals: [facility] Candice Remichelle, [Non-Staff] - Gian Humphrey MD [Staff Provider] -
[2017-07-06] MEDS: Apap-Butalbital-Caffeine 325-50-40mg Tab PO PRN (13:53)
[2017-07-06 16:17] VITALS: BP 142/96; PULSE 69; RESP 19; TEMP 98
== END 2017-07-06 18:12 | disposition home or self-care (01) | DRG 551 ==
LOC: ED 19:36 → ERH 23:15 → 3RNO 07-04 00:44 → OBSVTOIN 07-05 14:00
PROVIDERS: ADMIT Internal Medicine; ATTEND Internal Medicine
DX: K52.9 Noninfective gastroenteritis and colitis, unspecified (principal); N17.9 Acute kidney failure, unspecified; E87.2 Acidosis; E11.43 Type 2 diabetes mellitus with diabetic autonomic (poly)neuropathy; K31.84 Gastroparesis; K59.03 Drug induced constipation; T40.2X5A Adverse effect of other opioids, initial encounter; E86.0 Dehydration; G43.909 Migraine, unspecified, not intractable, without status migrainosus; F43.10 Post-traumatic stress disorder, unspecified; F41.0 Panic disorder [episodic paroxysmal anxiety]; K21.9 Gastro-esophageal reflux disease without esophagitis; I10 Essential (primary) hypertension; D64.9 Anemia, unspecified; G40.909 Epilepsy, unspecified, not intractable, without status epilepticus; E78.1 Pure hyperglyceridemia; G47.00 Insomnia, unspecified; Z87.891 Personal history of nicotine dependence; Z87.11 Personal history of peptic ulcer disease; Z86.718 Personal history of other venous thrombosis and embolism; Z79.891 Long term (current) use of opiate analgesic; Z88.0 Allergy status to penicillin

== ENCOUNTER 2017-07-21 13:38 | Emergency (ER) | payer MEDICAID ==
[2017-07-21 13:39] VITALS: BMI 23.0
[2017-07-21 13:57] VITALS: RESP 18; TEMP 98
[2017-07-21] MEDS ORDERED: Sodium Chloride 0.9% 1,000 ML IV STA (14:16)
[2017-07-21 14:50] LABS: BASO # 0.05 K/mm3 (0.0-2.0); BASO % 0.7 % (0.0-3.0); EOS # 0.2 (0.0-0.7); EOS % 2.5 % (1.5-5.0); GRAN # 3.22 (1.4-6.5); GRAN % 47.8 % (50.0-68.0); LYMPH % 44.4 % (22.0-35.0); MEAN CORPUSCULAR HEMOGLOBIN 24.7 pg (25.0-35.0); MEAN CORPUSCULAR HGB CONC 30.9 g/dl (31.0-37.0); MEAN PLATELET VOLUME 9.7 fl (7.0-11.0); MONO # 0.3 (0.1-0.6); MONO % 4.6 % (1.0-6.0); RBC 4.05 10^6/uL (3.5-6.1); RED CELL DISTRIBUTION WIDTH 16.7 % (11.5-14.5); WHITE BLOOD COUNT 6.7 10^3/ul (4.5-11.0)
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
--- NOTE | 2017-07-21 15:18 | CARD ---
APPROVED REPORT EKG Measurement Heart [id number] <Conclusion> Normal sinus rhythm Normal ECG
[2017-07-21 15:21] LABS: ALB/GLOB RATIO 1.4 (1.1-1.8); ALBUMIN 3.9 g/dL (3.0-4.8); ALT/SGPT 36 U/L (7-56); AST/SGOT 18 U/L (14-36); BLOOD UREA NITROGEN 20 mg/dL (7-21); CALCIUM 9.3 mg/dL (8.4-10.5); GFR AFRICAN-AMERICAN > 60; GFR NON-AFRICAN AMERICAN 52; LIPASE 304 U/L (23-300)
[2017-07-21 15:36] VITALS: O2SAT 97
[2017-07-21 16:08] LABS: URINE BILIRUBIN NEGATIVE (NEGATIVE); URINE BLOOD NEGATIVE (NEGATIVE); URINE GLUCOSE (UA) NEGATIVE (NEGATIVE); URINE LEUKOCYTE ESTERASE NEGATIVE Leu/uL (NEGATIVE); URINE NITRATE NEGATIVE (NEGATIVE); URINE PROTEIN NEGATIVE mg/dL (<30 mg/dL); URINE UROBILINOGEN 0.2 E.U./dL (<1 E.U./dL)
[2017-07-21 16:13] LABS: URINE APPEARANCE CLEAR (CLEAR); URINE COLOR YELLOW (YELLOW)
[2017-07-21 16:38] VITALS: BP 102/59; PULSE 61
[2017-07-21 16:39] LABS: BARBITURATES, UR POSITIVE (NEGATIVE); BENZODIAZEPINES, UR NEGATIVE (NEGATIVE); OPIATES, UR NEGATIVE (NEGATIVE); PHENCYCLIDINE, UR NEGATIVE (NEGATIVE)
== END 2017-07-21 17:00 | disposition home or self-care (01) ==
LOC: ED 13:38
DX: K29.70 Gastritis, unspecified, without bleeding (principal); I10 Essential (primary) hypertension; E11.9 Type 2 diabetes mellitus without complications; Z87.891 Personal history of nicotine dependence
CPT/HCPCS: 80053; 80324; 80345; 80346; 80349; 80353; 80358; 80361; 81003; 83690; 83992; 85025; 87086; 93005; 96374; 96375; 99285; J2405; J7040

== ENCOUNTER 2017-07-29 19:24 | Emergency (ER) | payer MEDICAID ==
[2017-07-29 19:24] VITALS: BMI 23.0
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
[2017-07-29] MEDS ORDERED: Alum-Mag Hydrox-Simethicone Susp (30 mL) PO STA (20:52)
[2017-07-29 22:20] LABS: BASO # 0.02 K/mm3 (0.0-2.0); BASO % 0.3 % (0.0-3.0); EOS # 0.3 (0.0-0.7); GRAN # 2.69 (1.4-6.5); GRAN % 42.5 % (50.0-68.0); HEMOGLOBIN 8.7 g/dL (12.0-16.0); LYMPH # 2.9 (1.2-3.4); LYMPH % 45.9 % (22.0-35.0); MEAN CORPUSCULAR HEMOGLOBIN 24.6 pg (25.0-35.0); MEAN CORPUSCULAR HGB CONC 30.4 g/dl (31.0-37.0); MEAN PLATELET VOLUME 10.8 fl (7.0-11.0); MONO # 0.5 (0.1-0.6); MONO % 7.3 % (1.0-6.0); RBC 3.53 10^6/uL (3.5-6.1); RED CELL DISTRIBUTION WIDTH 17.6 % (11.5-14.5); WHITE BLOOD COUNT 6.3 10^3/ul (4.5-11.0)
[2017-07-29 22:25] LABS: ALB/GLOB RATIO 1.3 (1.1-1.8); ALBUMIN 3.6 g/dL (3.0-4.8); ALT/SGPT 26 U/L (7-56); AST/SGOT 22 U/L (14-36); BLOOD UREA NITROGEN 32 mg/dL (7-21); CALCIUM 8.9 mg/dL (8.4-10.5); GFR AFRICAN-AMERICAN > 60; GFR NON-AFRICAN AMERICAN > 60; LIPASE 198 U/L (23-300)
[2017-07-29] MEDS ORDERED: Sodium Chloride 0.9% 500 ML IV STA (22:32)
[2017-07-29 23:01] LABS: URINE BILIRUBIN NEGATIVE (NEGATIVE); URINE BLOOD NEGATIVE (NEGATIVE); URINE GLUCOSE (UA) NEGATIVE (NEGATIVE); URINE LEUKOCYTE ESTERASE TRACE Leu/uL (NEGATIVE); URINE NITRATE NEGATIVE (NEGATIVE); URINE PROTEIN NEGATIVE mg/dL (<30 mg/dL); URINE UROBILINOGEN 0.2 E.U./dL (<1 E.U./dL)
[2017-07-29 23:02] LABS: URINE APPEARANCE CLEAR (CLEAR); URINE COLOR YELLOW (YELLOW)
[2017-07-29 23:04] LABS: BARBITURATES, UR POSITIVE (NEGATIVE); BENZODIAZEPINES, UR POSITIVE (NEGATIVE); OPIATES, UR NEGATIVE (NEGATIVE); PHENCYCLIDINE, UR NEGATIVE (NEGATIVE)
[2017-07-29 23:21] LABS: URINE EPITHELIAL CELLS 0 - 2 /hpf (0-5); URINE RBC NEGATIVE /hpf (0-2); URINE WBC 0 - 2 /hpf (0-6)
--- NOTE | 2017-07-30 04:57 | ED PDOC ---
Physical Exam - Physical Exam Narrative Physical Exam (Text): Signed out to me at change of shift pending PES eval. PES evaluated patient, will be held until morning to be evaluated by Dr. Camacho. Will sign out to ED morning team. Vital Signs Temp Pulse Resp BP Pulse Ox 07/30/17 03:30 85 16 104/75 99 07/29/17 22:10 98.1 F 95 H 20 124/69 100 Medical Decision Making - Lab Interpretations Lab Results: 07/29/17 21:55 07/29/17 21:55 Lab Results 07/29/17 22:00: Urine Opiates Screen Negative, Urine Methadone Screen Negative, Ur Barbiturates Screen Positive H, Ur Phencyclidine Scrn Negative, Ur Amphetamines Screen Negative, U Benzodiazepines Scrn Positive, U Oth Cocaine Metabols Positive H, U Cannabinoids Screen Negative 07/29/17 22:00: Urine Color Yellow, Urine Appearance Clear, Urine pH 6.0, Ur Specific [place] 1.010, Urine Protein Negative, Urine Glucose (UA) Negative, Urine Ketones Negative, Urine Blood Negative, Urine Nitrate Negative, Urine Bilirubin Negative, Urine Urobilinogen 0.2, Ur Leukocyte Esterase Trace H, Urine RBC Negative, Urine WBC 0 - 2, Ur Epithelial Cells 0 - 2 07/29/17 21:55: Sodium 140, Potassium 5.2 H, Chloride 114 H, Carbon Dioxide 17 L , Anion Gap 15, BUN 32 H, Creatinine 0.9, Est GFR ( Amer) > 60, Est GFR ( Non-Af Amer) > 60, Random Glucose 92, Calcium 8.9, Total Bilirubin 0.2, AST 22, ALT 26, Alkaline Phosphatase 65, Total Protein 6.4, Albumin 3.6, Globulin 2.7, Albumin/Globulin Ratio 1.3, Lipase 198 07/29/17 21:55: WBC 6.3 D, RBC 3.53, Hgb 8.7 L, Hct 28.6 L, MCV 81.0, MCH 24.6 L, MCHC 30.4 L, RDW 17.6 H, Plt Count 316, MPV 10.8, Gran % 42.5 L, Lymph % ( Auto) 45.9 H, [place] % (Auto) 7.3 H, Eos % (Auto) 4.0, Baso % (Auto) 0.3, Gran # 2.69, Lymph # 2.9, [place] # 0.5, Eos # 0.3, Baso # 0.02 07/29/17 20:52: Alcohol, Quantitative < 10 - RAD Interpretation Radiology Orders: 07/29/17 22:38 CHEST PORTABLE [RAD] Stat - Medication Orders Current Medication Orders: Discontinued Medications Al Hydrox/Mg Hydrox/Simethicone (Maalox Plus 30 Ml) 30 ml PO STAT STA Stop: 07/29/17 20:53 Last Admin: 07/29/17 21:50 Dose: 30 ml Famotidine (Pepcid) 20 mg IVP STAT STA Stop: 07/29/17 20:53 Last Admin: 07/29/17 21:50 Dose: 20 mg IVP Administration Document 07/29/17 21:50 YP (Rec: 07/29/17 21:50 YP [id number]) Charges for Administration # of IVP Administrations 1 Sodium Chloride (Sodium Chloride 0.9%) 500 mls @ 999 mls/hr IV .Q31M STA Stop: 07/29/17 23:02 Last Admin: 07/29/17 22:38 Dose: 999 mls/hr eMAR Start Stop Document 07/29/17 22:38 YP (Rec: 07/29/17 22:38 YP [id number]) Intravenous Solution Start Date 07/29/17 Start Time 22:38 End Date 07/29/17 End time 23:08 Total Infusion Time 30 Disposition/Present on Arrival - Present on Arrival Any Indicators Present on Arrival: No History of DVT/PE: No History of Uncontrolled Diabetes: No Urinary Catheter: No History of Decub. Ulcer: No History Surgical Site Infection Following: Orthopedic Procedures - Disposition Have Diagnosis and Disposition been Completed?: No Diagnosis: Anxiety, Bipolar 1 disorder, Abdominal pain in female Disposition Time: 04:57 Patient Problems: Current Active Problems Problem Status Onset Abdominal pain in female Acute Bipolar 1 disorder Acute Anxiety Chronic Condition: FAIR Referrals: Nacho Xavier MD [Primary Care Provider] - Follow up with primary Forms: [employer] ([place])
[2017-07-30 08:10] VITALS: O2SAT 96
--- NOTE | 2017-07-30 10:05 | RAD ---
HISTORY: psych COMPARISON: 07/26/2017 FINDINGS: LUNGS: No active pulmonary disease. PLEURA: No significant pleural effusion identified, no pneumothorax apparent. CARDIOVASCULAR: Normal. OSSEOUS STRUCTURES: No significant abnormalities. VISUALIZED UPPER ABDOMEN: Normal. OTHER FINDINGS: None. IMPRESSION: No active disease.
--- NOTE | 2017-07-30 11:02 | ED PDOC ---
Physical Exam Vital Signs Temp Pulse Resp BP Pulse Ox 07/30/17 08:09 98 F 86 18 102/68 96 07/30/17 03:30 85 16 104/75 99 07/29/17 22:10 98.1 F 95 H 20 124/69 100 Medical Decision Making ED Course and Treatment: 07/30/17 07:00 Case signed out to me by Dr. Moore. Patient is a 51 year old female who is currently pending psych evaluation. 07/30/17 11:[address] Guerra, psych, who saw the and evaluated the patient. will admit patient for depression. - Lab Interpretations Lab Results: 07/29/17 21:55 07/29/17 21:55 Lab Results 07/29/17 22:00: Urine Opiates Screen Negative, Urine Methadone Screen Negative, Ur Barbiturates Screen Positive H, Ur Phencyclidine Scrn Negative, Ur Amphetamines Screen Negative, U Benzodiazepines Scrn Positive, U Oth Cocaine Metabols Positive H, U Cannabinoids Screen Negative 07/29/17 22:00: Urine Color Yellow, Urine Appearance Clear, Urine pH 6.0, Ur Specific [place] 1.010, Urine Protein Negative, Urine Glucose (UA) Negative, Urine Ketones Negative, Urine Blood Negative, Urine Nitrate Negative, Urine Bilirubin Negative, Urine Urobilinogen 0.2, Ur Leukocyte Esterase Trace H, Urine RBC Negative, Urine WBC 0 - 2, Ur Epithelial Cells 0 - 2 07/29/17 21:55: Sodium 140, Potassium 5.2 H, Chloride 114 H, Carbon Dioxide 17 L , Anion Gap 15, BUN 32 H, Creatinine 0.9, Est GFR ( Amer) > 60, Est GFR ( Non-Af Amer) > 60, Random Glucose 92, Calcium 8.9, Total Bilirubin 0.2, AST 22, ALT 26, Alkaline Phosphatase 65, Total Protein 6.4, Albumin 3.6, Globulin 2.7, Albumin/Globulin Ratio 1.3, Lipase 198 07/29/17 21:55: WBC 6.3 D, RBC 3.53, Hgb 8.7 L, Hct 28.6 L, MCV 81.0, MCH 24.6 L, MCHC 30.4 L, RDW 17.6 H, Plt Count 316, MPV 10.8, Gran % 42.5 L, Lymph % ( Auto) 45.9 H, [place] % (Auto) 7.3 H, Eos % (Auto) 4.0, Baso % (Auto) 0.3, Gran # 2.69, Lymph # 2.9, [place] # 0.5, Eos # 0.3, Baso # 0.02 07/29/17 20:52: Alcohol, Quantitative < 10 - RAD Interpretation Radiology Orders: 07/29/17 22:38 CHEST PORTABLE [RAD] Stat - Medication Orders Current Medication Orders: Discontinued Medications Al Hydrox/Mg Hydrox/Simethicone (Maalox Plus 30 Ml) 30 ml PO STAT STA Stop: 07/29/17 20:53 Last Admin: 07/29/17 21:50 Dose: 30 ml Famotidine (Pepcid) 20 mg IVP STAT STA Stop: 07/29/17 20:53 Last Admin: 07/29/17 21:50 Dose: 20 mg IVP Administration Document 07/29/17 21:50 YP (Rec: 07/29/17 21:50 YP [id number]) Charges for Administration # of IVP Administrations 1 Sodium Chloride (Sodium Chloride 0.9%) 500 mls @ 999 mls/hr IV .Q31M STA Stop: 07/29/17 23:02 Last Admin: 07/29/17 22:38 Dose: 999 mls/hr eMAR Start Stop Document 07/29/17 22:38 YP (Rec: 07/29/17 22:38 YP [id number]) Intravenous Solution Start Date 07/29/17 Start Time 22:38 End Date 07/29/17 End time 23:08 Total Infusion Time 30 - Scribe Statement The provider has reviewed the documentation as recorded by the Jose Antonio Rivas Provider Scribe Attestation: All medical record entries made by the Scribcal were at my direction and personally dictated by me. I have reviewed the chart and agree that the record accurately reflects my personal performance of the history, physical exam, medical decision making, and the department course for this patient. I have also personally directed, reviewed, and agree with the discharge instructions and disposition. Disposition/Present on Arrival - Present on Arrival Any Indicators Present on Arrival: No History of DVT/PE: No History of Uncontrolled Diabetes: No Urinary Catheter: No History of Decub. Ulcer: No History Surgical Site Infection Following: Orthopedic Procedures - Disposition Have Diagnosis and Disposition been Completed?: Yes Diagnosis: Anxiety, Bipolar 1 disorder, Abdominal pain in female Disposition: HOSPITALIZED Disposition Time: 11:06 Patient Plan: Admission Patient Problems: Current Active Problems Problem Status Onset Abdominal pain in female Acute Anxiety Chronic Bipolar 1 disorder Acute Condition: FAIR Referrals: Nacho Xavier MD [Primary Care Provider] - Follow up with primary Forms: [employer] (Armenian)
[2017-07-30 16:09] VITALS: BP 128/76; PULSE 89; RESP 18; TEMP 97.9
--- NOTE | 2017-07-30 20:25 | CARD ---
APPROVED REPORT EKG Measurement Heart [id number] IA 126P47 [id number] <Conclusion> Normal sinus rhythm Septal infarct, age undetermined Abnormal ECG
--- NOTE | 2017-07-30 20:29 | CARD ---
APPROVED REPORT EKG Measurement Heart [id number] [place] 124P46 [id number] <Conclusion> Sinus tachycardia Otherwise normal ECG
--- NOTE | 2017-07-30 23:40 | CON ---
DATE: HISTORY OF PRESENT ILLNESS: The patient is 51-year-old female very well known to this verse writer from multiple hospitalizations into the Psychiatric Inpatient Unit and history of antisocial behavior in the Psychiatric Inpatient Unit. Most recently, the patient was admitted under this verse writer service on 03/2017. The patient was discharged administratively. At this time, patient came to the hospital complaining of abdominal pain. When the patient got to know that the patient will be not accepted on the medical side, patient started to say that she feels depressed and she is hearing voices and expressed thoughts of harming herself. Initially, the patient was willing to sign herself into the Psychiatric Inpatient Unit for further observation and stabilization with nurse practitioner, but the patient changed her might later on. This verse writer had [id number] evaluation with this patient. The patient presented to be under the influence of drugs. Urine drug screen was positive with cocaine and benzodiazepines as well as barbiturates. The patient was not psychotic, but reported that she had hearing voices. The patient does not present to be internally preoccupied. Thought process was goal directed, but the patient obviously under the influence of drugs. The patient also reported that she feels depressed, reported that she feels hopeless, reported that she wanted to harm herself prior to coming to the hospital, but during the interview, the patient contracted for safety and denied thoughts of killing herself or others. This verse writer called to [facility] pharmacy, confirmed the medication. The patient got Xanax at the beginning of the last week 30-day supply, Fioricet, also pain medications. PHYSICAL EXAMINATION: VITAL SIGNS: Reviewed, seems to be stable. MEDICATIONS: Reviewed. Xanax 0.5 mg was given to the patient because the patient complained of withdrawal symptoms. The patient also reported that Geodon helped her much better, but the patient filled Seroquel in [facility] pharmacy. Labs reviewed. Toxicology reviewed. Cocaine positive. Benzodiazepines positive and barbiturates positive. PAST PSYCHIATRIC HISTORY: While the patient was in the Psychiatric Inpatient Unit, patient was crushing benzodiazepines as well as pain killers and trying to snort it and was discharged administratively, last admission in 03/2017. MENTAL STATUS EXAM: As this verse writer described above, the patient was alert and oriented, but seems to be under the influence of drugs. Mood described initially I was feeling fine, then I became very depressed, my mind was racing, affect was flat. Thought process seems to be circumstantial and confabulations. The patient also was providing conflicting and inconsistent information. Thought content, the patient reported that she hears voices, but the patient does not present to be psychotic. Insight and judgment seems to be limited in her addiction problems and impulses seems to be well controlled. IMPRESSION: Polysubstance abuse and dependence, rule out adjustment disorder, rule out mood disorder, anxiety disorder due to general medical condition. PLAN: The patient reported that her primary care physician was prescribing her medications. The patient feels all of her medication on 07/19/2017 at [facility] pharmacy. All medications confirmed the chances that she might be withdrawing from the medications are very low. The patient later said that she wants to go home, and she does not want to stay in the hospital. This verse writer agree with the plan to discharge the patient. The patient was advised to follow up with outpatient provider. The patient has all of the contact information for [facility], [facility] as well as Dr. Lamin Dorado, local psychiatrist. The patient was advised to stay off drugs. The patient contracted for safety. The patient denied any intent or plan to kill herself. The patient was found to be not in any imminent danger to self or others, might benefit from inpatient rehab, but it is up to the patient. This verse writer will sign off. Altogether, care of this patient took more than 1 hour of this verse writer's time. Thank you very much. Should you have any questions, give me a call back. Janice Guerra MD
== END 2017-07-30 16:48 | disposition home or self-care (01) ==
LOC: ED 19:24 → UNDOADMIN 07-30 11:03 → ERH 07-30 11:03
DX: R10.9 Unspecified abdominal pain (principal); F41.9 Anxiety disorder, unspecified; F31.9 Bipolar disorder, unspecified; I10 Essential (primary) hypertension; E11.9 Type 2 diabetes mellitus without complications; Z87.891 Personal history of nicotine dependence
CPT/HCPCS: 71045; 80053; 80320; 80324; 80345; 80346; 80349; 80353; 80358; 80361; 81001; 83690; 83992; 85025; 87086; 90791; 93005; 96374; 99285; J7040

== ENCOUNTER 2017-08-24 23:08 | Observation (INO) | payer MEDICAID ==
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
[2017-08-25 02:23] LABS: URINE APPEARANCE CLEAR (CLEAR); URINE BILIRUBIN NEGATIVE (NEGATIVE); URINE BLOOD NEGATIVE (NEGATIVE); URINE COLOR YELLOW (YELLOW); URINE GLUCOSE (UA) NEGATIVE (NEGATIVE); URINE LEUKOCYTE ESTERASE NEGATIVE Leu/uL (NEGATIVE); URINE NITRATE NEGATIVE (NEGATIVE); URINE PROTEIN NEGATIVE mg/dL (<30 mg/dL); URINE UROBILINOGEN 0.2 E.U./dL (<1 E.U./dL)
[2017-08-25 02:26] LABS: BASO # 0.03 K/mm3 (0.0-2.0); BASO % 0.4 % (0.0-3.0); EOS # 0.1 (0.0-0.7); EOS % 1.3 % (1.5-5.0); GRAN # 3.94 (1.4-6.5); GRAN % 57.7 % (50.0-68.0); HEMOGLOBIN 10.8 g/dL (12.0-16.0); LYMPH # 2.5 (1.2-3.4); LYMPH % 36.5 % (22.0-35.0); MEAN CELL VOLUME 82.4 fl (80.0-105.0); MEAN CORPUSCULAR HEMOGLOBIN 25.7 pg (25.0-35.0); MEAN CORPUSCULAR HGB CONC 31.1 g/dl (31.0-37.0); MEAN PLATELET VOLUME 10.9 fl (7.0-11.0); MONO # 0.3 (0.1-0.6); MONO % 4.1 % (1.0-6.0); RBC 4.21 10^6/uL (3.5-6.1); RED CELL DISTRIBUTION WIDTH 17.7 % (11.5-14.5); WHITE BLOOD COUNT 6.8 10^3/ul (4.5-11.0)
[2017-08-25 02:37] LABS: SALICYLATE < 1 mg/dL (2.0-20.0)
[2017-08-25 02:47] LABS: BENZODIAZEPINES, UR NEGATIVE (NEGATIVE); OPIATES, UR NEGATIVE (NEGATIVE); PHENCYCLIDINE, UR NEGATIVE (NEGATIVE)
[2017-08-25 02:55] LABS: TROPONIN I < 0.01 ng/mL
[2017-08-25 02:56] LABS: ALB/GLOB RATIO 1.4 (1.1-1.8); ALBUMIN 3.8 g/dL (3.0-4.8); ALT/SGPT 28 U/L (7-56); AST/SGOT 18 U/L (14-36); BARBITURATES, UR POSITIVE (NEGATIVE); BLOOD UREA NITROGEN 24 mg/dL (7-21); CALCIUM 9.4 mg/dL (8.4-10.5); GFR AFRICAN-AMERICAN > 60; GFR NON-AFRICAN AMERICAN > 60
--- NOTE | 2017-08-25 02:59 | CT ---
EXAM: CT Head Without Intravenous Contrast EXAM DATE/TIME: 08/25/2017 1:09 AM CLINICAL HISTORY: 52 years old, female; Signs and symptoms; Syncope and collapse TECHNIQUE: Axial computed tomography images of the head/brain without intravenous contrast. All CT scans at this facility use one or more dose reduction techniques, viz.: automated exposure control; ma/kV adjustment per patient size (including targeted exams where dose is matched to indication; i.e. head); or iterative reconstruction technique. Coronal and sagittal reformatted images were created and reviewed. COMPARISON: Prior head CT of 2017-05-31 FINDINGS: BRAIN: No significant acute abnormality identified. No acute hemorrhage seen within the brain. No acute extra-axial fluid collections visualized. No evidence of significant mass effect within the brain. VENTRICLES: No evidence of significant hydrocephalus. BONES/JOINTS: No acute fractures or other acute bony abnormality noted. SOFT TISSUES: No acute abnormality of the visualized soft tissues is seen. SINUSES: Visualized paranasal sinuses appear clear. MASTOID AIR CELLS: Mastoid air cells appear clear. ORBITS: Stable appearance of tiny calcifications in the right globe posteriorly, of uncertain etiology, but compatible with a nonacute finding. IMPRESSION: - No acute findings seen within the brain. - See above for remaining findings.
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
[2017-08-25] MEDS: Pantoprazole 40 mg EC Tab PO SCH (05:31)
[2017-08-25 05:50] VITALS: BMI 21.7
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
[2017-08-25] MEDS ORDERED: Apap-Butalbital-Caffeine 325-50-40mg Tab PO PRN ×2 (13:02→13:57)
--- NOTE | 2017-08-25 14:38 | PCM.FALL ---
Post Fall Progress Note - Post Fall Fall Date: 08/25/17 Fall Time: 14:06 Description of Fall: Patient stood up from toilet and walked back to her bed, saw the room darkening and felt weak, caught herself on the bed, and fell slowly to the ground. Ended up on hands and knees. Witnessed by nurse. No head trauma. - Post Fall Exam Vital Sign: Temp Pulse Resp BP Pulse Ox 98.1 F 76 20 111/77 99 08/25/17 12:00 08/25/17 12:00 08/25/17 12:00 08/25/17 12:00 08/25/17 12:00 Skull Exam: Negative for: Scalp wound, Scalp hematoma, Scalp depression, Ridge in skull Eye Exam: Positive for: Pupils equal, Pupils reactive Ear Exam: Negative for: Discharge, Bleeding Nose Exam: Negative for: Discharge, Bleeding Skin Exam: Negative for: Lacerations, Grazes, Bruising Mouth Exam: Negative for: Tongue bitten, Teeth dislodge Neck Exam: Negative for: Tenderness, Tingling, Weakness Spinal Exam: Negative for: Tenderness, Tingling, Weakness Chest Exam: Negative for: Difficulty breathing, Tenderness in collar bones, Tenderness in ribs Abdomen Exam: Positive for: Tenderness (chronic, unchanged) Pelvic Exam: Negative for: Tenderness, Hematuria Arm Exam: Negative for: Deformity, Alteration in range of movement Leg Exam: Negative for: Deformity, Alteration in range of movement Impression/Plan: Patient was speaking slowly, but no slurring of speech. CN II-XII grossly intact. 5/5 strength in all four extremities. 2/4 reflexes b/l UE and LE. Sensation grossly intact. Peripheral visual flor intact. No pronator drift. No finger to nose dysmetria. Patient received an extra dose of xanax which caused her to move and think slowly. Will order neuro checks, high risk fall precautions, orthostatic vital signs, and avoid any sedative medications.
--- NOTE | 2017-08-25 14:39 | CARD ---
APPROVED REPORT EXAM: Two-dimensional and M-mode echocardiogram with Doppler and color Doppler. INDICATION Syncope 2D DIMENSIONS IVSd0.7 (0.7-1.1cm)LVDd3.6 (3.9-5.9cm) PWd0.9 (0.7-1.1cm)LVDs2.5 (2.5-4.0cm) FS (%) 30.2 %LVEF (%)58.4 (>50%) M-Mode DIMENSIONS Aortic Root3.00 (2.2-3.7cm)Aortic Cusp Exc.1.80 (1.5-2.0cm) Aortic Valve AoV Peak Yfqahzrk839.0cm/Alexandra Peak GR.9mmHgLVOT Peak Qbnhyqgl872.0cm/s LVOT VTI28.10cm Mitral Valve MV E Dmfeuyhu29.6cm/sMV A Qtgobehk51.9cm/sE/A ratio0.8 TDI Lateral E' Peak V10.40cm/sMedial E' Peak V7.60cm/sE/Lateral E'6.8 E/Medial E'9.3 Pulmonary Valve PV Peak Mumnmrju59.3cm/sPV Peak Grad.1mmHg Tricuspid Valve TR Peak Zclnjoxw426md/sRAP FCOOWBYM94icLwPQ Peak Gr.27mmHg [id number] LEFT VENTRICLE The left ventricle is normal size. There is normal left ventricular wall thickness. The left ventricular function is normal. The left ventricular ejection fraction is within the normal range. There is normal LV segmental wall motion. Transmitral Doppler flow pattern is Grade I-abnormal relaxation pattern. RIGHT VENTRICLE The right ventricle is normal size. There is normal right ventricular wall thickness. The right ventricular systolic function is normal. ATRIA The left atrium size is normal. The right atrium size is normal. AORTIC VALVE The aortic valve is mildly thickened. No aortic regurgitation is present. There is no aortic valvular stenosis. MITRAL VALVE The mitral valve is mildly thickened. Mitral regurgitation is mild. TRICUSPID VALVE There is mild tricuspid regurgitation. There is mild pulmonary hypertension. GREAT VESSELS The aortic root is normal in size. PERICARDIAL EFFUSION There is no pericardial effusion. <Conclusion> The left ventricle is normal size. There is normal left ventricular wall thickness. The left ventricular function is normal. The left ventricular ejection fraction is within the normal range. There is normal LV segmental wall motion. Transmitral Doppler flow pattern is Grade I-abnormal relaxation pattern. Mitral regurgitation is mild. There is mild tricuspid regurgitation. There is mild pulmonary hypertension.
--- NOTE | 2017-08-25 16:09 | CARD ---
APPROVED REPORT EKG Measurement Heart [id number] VT [id number] <Conclusion> Normal sinus rhythm ST abnormality, nonspecific Abnormal ECG
--- NOTE | 2017-08-25 19:12 | US ---
PROCEDURE: Bilateral carotid artery duplex ultrasound HISTORY: Carotid stenosis syncope PHYSICIAN(S): Davon Hill MD. TECHNIQUE: Duplex sonography and color-flow Doppler were used to evaluate the carotid bifurcations and limited segments of the vertebral arteries bilaterally. FINDINGS: There is mild smooth hypoechoic plaque noted at the carotid bifurcations bilaterally. The peak systolic velocity in the proximal right internal carotid artery is 67 cm/sec. This corresponds to a 20 to 39% proximal right ICA stenosis. Normal systolic velocities are noted in the proximal right external carotid artery. There is antegrade flow in the dominant right vertebral artery. The peak systolic velocity in the proximal left internal carotid artery is 57 cm/sec. This corresponds to a 20 to 39% proximal left ICA stenosis. Normal systolic velocities are noted in the proximal left external carotid artery. There is antegrade flow in the left vertebral artery. IMPRESSION: 1. Bilateral 20-39% proximal ICA stenoses. 2. Antegrade flow in both vertebral arteries.
[2017-08-26] MEDS: Pantoprazole 40 mg EC Tab PO SCH (05:35)
--- NOTE | 2017-08-26 09:38 | CON ---
DATE: CARDIOLOGY CONSULT REASON FOR CONSULTATION: Syncopal episode. HISTORY OF PRESENT ILLNESS: The patient is a 62 years old female who has a history of gastroparesis, status post vagotomy, history of depression and anxiety. The patient has taken 4 tablets of Fioricet because she did not sleep for 2 consecutive nights and while in a commode in bathroom, to move her bowel. She fainted. According to her story, that the brother came to the bathroom after he heard a sump, but still found her on the commode trying to wake her up. The patient denies being on the floor of the bathroom and when asked about palpitation, she states she always hears her heart racing. SOCIAL HISTORY: Nonsmoker. HOME MEDICATIONS: Include Seroquel, Remeron, Xanax, Fioricet, and Percocet. CURRENT HOSPITAL MEDICATIONS: Subcutaneous heparin 5000 units twice a day, Keppra 500 mg twice a day, Lopressor 25 mg twice a day, Neurontin 600 mg once a day, Protonix 40 mg p.o. once a day, Remeron 45 mg once a day, Seroquel 100 mg at bedtime, Xanax 1 mg p.o. t.i.d. p.r.n. for anxiety. REVIEW OF SYSTEMS: No nausea or vomiting. No fevers or chills. PHYSICAL EXAMINATION: GENERAL: The patient is a middle-aged female, who does not appear to be in any distress. VITAL SIGNS: Blood pressure 124/79, heart rate 92, temperature 97.4, respirations 20. HEENT: Normocephalic. NECK: No JVD. CHEST: Clear. HEART: S1 and S2 regular. ABDOMEN: Soft. EXTREMITIES: No edema or calf tenderness. LABORATORY DATA: Urine drug screen is positive for barbiturates and cocaine. SMA-7: Sodium 144, potassium 3.8, chloride 112, CO2 of 18, glucose 171, BUN 24, creatinine 0.9. One set of troponin is negative. Hemoglobin and hematocrit are 10.8 and 34.7. White count and platelet count are within normal limits. Head CT scan without contrast, no acute findings. EKG revealed sinus rhythm with nonspecific ST wave changes. ASSESSMENT: 1. Syncopal episode. 2. Cocaine abuse. 3. History of gastroparesis, status post vagotomy. 4. Depression. RECOMMENDATIONS: Continue subcutaneous heparin, Keppra, Lopressor, and Seroquel. Obtain TSH level. Follow up carotid Doppler and an echocardiogram. Grant Koenig MD
[2017-08-26 11:58] VITALS: PULSE 84; TEMP 98
--- NOTE | 2017-08-26 13:23 | PN ---
DATE: SUBJECTIVE: The patient is still experiencing tightness in her neck. PHYSICAL EXAMINATION VITAL SIGNS: Blood pressure 100/71, heart rate 83, temperature 98.4, respirations 18. HEENT: Normocephalic. CHEST: Clear. HEART: S1 and S2 regular. EXTREMITIES: No edema. DATA: Echocardiogram study report: Normal left ventricular size with thickness and ejection fraction and grade 1 abnormal relaxation pattern, mild pulmonary hypertension. ASSESSMENT 1. Syncopal episode. 2. Cocaine abuse. 3. History of gastroparesis, status post vagotomy. 4. Depression. RECOMMENDATIONS: Discontinue Lopressor. Continue subcutaneous heparin. Start Imdur at 30 mg once a day. Grant Koenig MD
--- NOTE | 2017-08-26 16:11 | PN ---
DATE: 08/26/2017 PRESENTATION: The patient is a 52-year-old female seen at bedside. She was originally admitted to the hospital on 08/25/2017 for having a falling down at home. She in the ER admitted to take . She additionally or in stead of took 4 mirtazapine 45 mg tablets and 3 Seroquel 100 mg tablets, all in an effort to sleep according to the patient. Psychiatric consult was originally ordered due to concerns of polypharmacy. The patient today immediately upon seeing me indicates that she has been cut off "from her medication" that she fell last night and the doctors have taken all the mediations from her that could possibly cause any dizziness and she really needs to have her Xanax, she has been on it for 14 years and she needs it to help her with her anxiety. Evidently, according to the nursing staff, she was observed walking from her bed to the bathroom and then slowly fell to the floor, was called. Vitals were stable at 122/83, 86 heart rate, temperature 98.2, and her blood sugar was 113. She is very, very anxious about not having her medication. The medical team is concerned about that she has a pattern of having syncopal episodes from the medications, so they have discontinued the medication. Currently, the medications that she is still receiving are Seroquel 100 mg at bedtime. She is still receiving the mirtazapine 45 mg one at bedtime. She has got some Protonix, Lopressor, Keppra, heparin, Neurontin 600 mg at bedtime, and Tylenol. The patient also questions me as to whether or not she can have Suboxone and I pointed out to her that this is not available here at [facility], but additionally it was not an appropriate prescription for her condition. The patient has a little insight, is unable to process well and does not possess any motivation for change at this time. Her current vitals today include temperature of 98.4, pulse rate of 83, blood pressure of 100/71, respirations of 18, and O2 saturation of 97. MENTAL STATUS EXAMINATION: The patient is alert and oriented x3. Her eye contact is good. Her behavior is cooperative. Her speech rate and volume are within normal limits. Mood is anxious. Affect is constricted. Thoughts are goal directed, but concrete and simplistic, med seeking behaviors continue. The patient is very fixed on her medication. She denies being suicidal or homicidal. She indicates that she has visual hallucinations of people walking. She has audio hallucinations of people talking, but is unable to tell me what they says. She denies the presence of delusions or paranoia. Her concentration and her focus are scattered. 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 Appetite and sleep, she indicates are impaired. DIAGNOSTIC IMPRESSION: Bipolar disorder, unspecified; borderline personality disorder; benzodiazepine dependence; cocaine abuse, dependence. PLAN: The patient denies being suicidal or homicidal, appears in no imminent danger of hurting herself or others. She is not interested in any referrals, pt has scheduled appointment with her private psychiatrist. She has insight into her behavior and wants to follow up with psychiatrist of her choice. Please let us know if there are any further needs. Dr. Guerra is aware of this disposition. Thank you for the consult. Zoey Marino APN Janice Guerra MD RAJINDER
--- NOTE | 2017-08-26 17:16 | CP.PCM.DIS ---
<Troy Sanchez - Last Filed: 08/27/17 05:03> Provider - Provider Date of Admission: 08/25/17 03:12 Attending physician: Loretta Chan MD Primary care physician: Eleazar Buckner JD, MD Time Spent in preparation of Discharge (in minutes): 40 Diagnosis - Discharge Diagnosis (1) Vasovagal episode Status: Acute (2) Syncope Status: Acute (3) Anxiety Status: Chronic Priority: Low (4) Sedative, hypnotic, or anxiolytic abuse, daily use Status: Chronic Priority: High (5) Gastroparesis Status: Chronic Priority: Medium (6) HTN (hypertension) Status: Chronic (7) Seizure Status: Chronic Priority: Medium Hospital Course - Lab Results Lab Results: Most Recent Lab Values WBC 6.8 10^3/ul (4.5-11.0) 08/25/17 02:00 RBC 4.21 10^6/uL (3.5-6.1) 08/25/17 02:00 Hgb 10.8 g/dL (12.0-16.0) L D 08/25/17 02:00 Hct 34.7 % (36.0-48.0) L 08/25/17 02:00 MCV 82.4 fl (80.0-105.0) 08/25/17 02:00 MCH 25.7 pg (25.0-35.0) 08/25/17 02:00 MCHC 31.1 g/dl (31.0-37.0) 08/25/17 02:00 RDW 17.7 % (11.5-14.5) H 08/25/17 02:00 Plt Count 273 10^3/uL (120.0-450.0) 08/25/17 02:00 MPV 10.9 fl (7.0-11.0) 08/25/17 02:00 Gran % 57.7 % (50.0-68.0) 08/25/17 02:00 Lymph % (Auto) 36.5 % (22.0-35.0) H 08/25/17 02:00 [place] % (Auto) 4.1 % (1.0-6.0) 08/25/17 02:00 Eos % (Auto) 1.3 % (1.5-5.0) L 08/25/17 02:00 Baso % (Auto) 0.4 % (0.0-3.0) 08/25/17 02:00 Gran # 3.94 (1.4-6.5) 08/25/17 02:00 Lymph # (Auto) 2.5 (1.2-3.4) 08/25/17 02:00 [place] # (Auto) 0.3 (0.1-0.6) 08/25/17 02:00 Eos # (Auto) 0.1 (0.0-0.7) 08/25/17 02:00 Baso # (Auto) 0.03 K/mm3 (0.0-2.0) 08/25/17 02:00 Sodium 144 mmol/L (132-148) 08/25/17 02:00 Potassium 3.8 mmol/L (3.6-5.0) 08/25/17 02:00 Chloride 112 mmol/L (98-107) H 08/25/17 02:00 Carbon Dioxide 18 mmol/L (21-33) L 08/25/17 02:00 Anion Gap 18 (10-20) 08/25/17 02:00 BUN 24 mg/dL (7-21) H 08/25/17 02:00 Creatinine 0.9 mg/dl (0.7-1.2) 08/25/17 02:00 Est GFR ( Amer) > 60 08/25/17 02:00 Est GFR (Non-Af Amer) > 60 08/25/17 02:00 POC Glucose (mg/dL) 113 mg/dL (65-110) H 08/25/17 14:15 Random Glucose 171 mg/dL (70-110) H 08/25/17 02:00 Calcium 9.4 mg/dL (8.4-10.5) 08/25/17 02:00 Total Bilirubin 0.2 mg/dL (0.2-1.3) 08/25/17 02:00 AST 18 U/L (14-36) 08/25/17 02:00 ALT 28 U/L (7-56) 08/25/17 02:00 Alkaline Phosphatase 69 U/L (38-126) 08/25/17 02:00 Lactate Dehydrogenase 328 U/L (333-699) L 08/25/17 02:00 Total Creatine Kinase 48 U/L (35-230) 08/25/17 02:00 Troponin I < 0.01 ng/mL 08/25/17 02:00 Total Protein 6.5 g/dL (5.8-8.3) 08/25/17 02:00 Albumin 3.8 g/dL (3.0-4.8) 08/25/17 02:00 Globulin 2.7 gm/dL 08/25/17 02:00 Albumin/Globulin Ratio 1.4 (1.1-1.8) 08/25/17 02:00 TSH 3rd Generation 1.70 mIU/mL (0.46-4.68) 08/25/17 06:00 Urine Color Yellow (YELLOW) 08/25/17 02:00 Urine Appearance Clear (CLEAR) 08/25/17 02:00 Urine pH 6.0 (4.7-8.0) 08/25/17 02:00 Ur Specific [place] <= 1.005 (1.005-1.035) 08/25/17 02:00 Urine Protein Negative mg/dL (<30 mg/dL) 08/25/17 02:00 Urine Glucose (UA) Negative mg/dL (NEGATIVE) 08/25/17 02:00 Urine Ketones Negative mg/dL (NEGATIVE) 08/25/17 02:00 Urine Blood Negative (NEGATIVE) 08/25/17 02:00 Urine Nitrate Negative (NEGATIVE) 08/25/17 02:00 Urine Bilirubin Negative (NEGATIVE) 08/25/17 02:00 Urine Urobilinogen 0.2 E.U./dL (<1 E.U./dL) 08/25/17 02:00 Ur Leukocyte Esterase Negative [place]/uL (NEGATIVE) 08/25/17 02:00 Salicylates < 1 mg/dL (2.0-20.0) L 08/25/17 02:00 Urine Opiates Screen Negative (NEGATIVE) 08/25/17 02:00 Urine Methadone Screen Negative (NEGATIVE) 08/25/17 02:00 Acetaminophen 12.0 ug/ml (10.0-20.0) 08/25/17 02:00 Ur Barbiturates Screen Positive (NEGATIVE) H 08/25/17 02:00 Ur Phencyclidine Scrn Negative (NEGATIVE) 02/07/18 02:00 Ur Amphetamines Screen Negative (NEGATIVE) 08/25/17 02:00 U Benzodiazepines Scrn Negative (NEGATIVE) 08/25/17 02:00 U Oth Cocaine Metabols Positive (NEGATIVE) H 08/25/17 02:00 U Cannabinoids Screen Negative (NEGATIVE) 08/25/17 02:00 Alcohol, Quantitative < 10 mg/dL (0-10) 08/25/17 02:00 - Hospital Course Hospital Course: Ms. Ortiz is a 52 year old female with past medical history of gastroparesis, HTN, hypertriglyceridemia, seizure disorders on keppra, GERD, migraines, polysubstance abuse, anemia and extensive psych history present status post syncopal episode. Patient states she was in the bathroom and was straining when she passed out. Prior to the syncope patient states she took 4 fiorcets for headache, one every hour, along with seroquel and remeron to help her sleep. Patient denied hitting her head or any trauma. She states she was unconscious for less than a minute and was helped by her brother. She stated right before she fell, she felt the room spinning. She denied any seizures, urinary or bowel incontinence. Patient states she was recently hospitalized in [place] and was transfused with several units of blood due to low hemoglobin level and has had diarrhea for the past two weeks. CT HEad was negative for any acute changes or bleeds. carotid us was obtained and showed 20- 39% b/l stenosis. Echo was done and showed EF 58% and no valvular abnormalities. Orthostatic signs were negative. NEurology was consulted and recommended adequate hydration and avoiding overuse of meds and dehydration, polysubstance abuse. Patient was a code star after dose of xanax, and she claims it was a slip. PT evaluated and cleared patient for discharge. PAtient is being discharged on Fioricet and is to continue her home medications including Keppra. Patient will follow up with Dr. Montes and Dr. Buckner or [facility] clinic. PAtient is medically cleared for discharge. Discharge Exam - Head Exam Head Exam: ATRAUMATIC, NORMAL INSPECTION, NORMOCEPHALIC - Eye Exam Eye Exam: EOMI, Normal appearance - ENT Exam ENT Exam: Mucous Membranes Moist - Neck Exam Neck exam: Normal Inspection - Respiratory Exam Respiratory Exam: Clear to PA & Lateral, NORMAL BREATHING PATTERN. absent: Rales, Rhonchi, Wheezes, Stridor - Cardiovascular Exam Cardiovascular Exam: RRR, +S1, +S2 - GI/Abdominal Exam GI & Abdominal Exam: Soft. absent: Distended, Tenderness - Extremities Exam Extremities exam: normal inspection - Back Exam Back exam: NORMAL INSPECTION - Neurological Exam Neurological exam: Alert, Normal Gait, Oriented x3 - Psychiatric Exam Psychiatric exam: Normal Affect, Normal Mood - Skin Skin Exam: Normal Color, Warm Discharge Plan - Discharge Medications Prescriptions: Acetaminophen/Butalbital/Caf [Fioricet] 1 tab PO Q6 PRN #3 tab PRN Reason: Headache - Follow Up Plan Condition: STABLE Disposition: HOME/ ROUTINE Instructions: Rotavirus Infection (DC), Rotavirus Infection (GEN), Syncope (ED) , Syncope (DC), Syncope (GEN), Nutrition Tips for Relief of Diarrhea (DC), Nutrition Tips for Relief of Diarrhea (GEN) Additional Instructions: - please follow up with a PMD within 1 week - please follow up with Neurology within 1 week - please avoid misuse of prescribed medications or extra doses. The medications you are taking have side-effects which could cause dizziness and should not be mixed or not used as prescribed - if you experience shortness of breath, chest pain, dizziness, changes in vision/hearing, or any seizure-like activity, please return to ER for evaluation Referrals: [facility] at [facility] [Outside] Eleazar Buckner JD, MD [Primary Care Provider] - Abel Montes MD [Staff Provider] - <Loretta Chan - Last Filed: 08/27/17 14:40> Provider - Provider Date of Admission: 08/25/17 03:12 Attending physician: Loretta Chan MD Primary care physician: Eleazar Buckner JD, MD Hospital Course - Lab Results Lab Results: Most Recent Lab Values WBC 6.8 10^3/ul (4.5-11.0) 08/25/17 02:00 RBC 4.21 10^6/uL (3.5-6.1) 08/25/17 02:00 Hgb 10.8 g/dL (12.0-16.0) L D 08/25/17 02:00 Hct 34.7 % (36.0-48.0) L 08/25/17 02:00 MCV 82.4 fl (80.0-105.0) 08/25/17 02:00 MCH 25.7 pg (25.0-35.0) 08/25/17 02:00 MCHC 31.1 g/dl (31.0-37.0) 08/25/17 02:00 RDW 17.7 % (11.5-14.5) H 08/25/17 02:00 Plt Count 273 10^3/uL (120.0-450.0) 08/25/17 02:00 MPV 10.9 fl (7.0-11.0) 08/25/17 02:00 Gran % 57.7 % (50.0-68.0) 08/25/17 02:00 Lymph % (Auto) 36.5 % (22.0-35.0) H 08/25/17 02:00 [place] % (Auto) 4.1 % (1.0-6.0) 08/25/17 02:00 Eos % (Auto) 1.3 % (1.5-5.0) L 08/25/17 02:00 Baso % (Auto) 0.4 % (0.0-3.0) 08/25/17 02:00 Gran # 3.94 (1.4-6.5) 08/25/17 02:00 Lymph # (Auto) 2.5 (1.2-3.4) 08/25/17 02:00 [place] # (Auto) 0.3 (0.1-0.6) 08/25/17 02:00 Eos # (Auto) 0.1 (0.0-0.7) 08/25/17 02:00 Baso # (Auto) 0.03 K/mm3 (0.0-2.0) 08/25/17 02:00 Sodium 144 mmol/L (132-148) 08/25/17 02:00 Potassium 3.8 mmol/L (3.6-5.0) 08/25/17 02:00 Chloride 112 mmol/L (98-107) H 08/25/17 02:00 Carbon Dioxide 18 mmol/L (21-33) L 08/25/17 02:00 Anion Gap 18 (10-20) 08/25/17 02:00 BUN 24 mg/dL (7-21) H 08/25/17 02:00 Creatinine 0.9 mg/dl (0.7-1.2) 08/25/17 02:00 Est GFR ( Amer) > 60 08/25/17 02:00 Est GFR (Non-Af Amer) > 60 08/25/17 02:00 POC Glucose (mg/dL) 113 mg/dL (65-110) H 08/25/17 14:15 Random Glucose 171 mg/dL (70-110) H 08/25/17 02:00 Calcium 9.4 mg/dL (8.4-10.5) 08/25/17 02:00 Total Bilirubin 0.2 mg/dL (0.2-1.3) 08/25/17 02:00 AST 18 U/L (14-36) 08/25/17 02:00 ALT 28 U/L (7-56) 08/25/17 02:00 Alkaline Phosphatase 69 U/L (38-126) 08/25/17 02:00 Lactate Dehydrogenase 328 U/L (333-699) L 08/25/17 02:00 Total Creatine Kinase 48 U/L (35-230) 08/25/17 02:00 Troponin I < 0.01 ng/mL 08/25/17 02:00 Total Protein 6.5 g/dL (5.8-8.3) 08/25/17 02:00 Albumin 3.8 g/dL (3.0-4.8) 08/25/17 02:00 Globulin 2.7 gm/dL 08/25/17 02:00 Albumin/Globulin Ratio 1.4 (1.1-1.8) 08/25/17 02:00 TSH 3rd Generation 1.70 mIU/mL (0.46-4.68) 08/25/17 06:00 Urine Color Yellow (YELLOW) 08/25/17 02:00 Urine Appearance Clear (CLEAR) 08/25/17 02:00 Urine pH 6.0 (4.7-8.0) 08/25/17 02:00 Ur Specific [place] <= 1.005 (1.005-1.035) 08/25/17 02:00 Urine Protein Negative mg/dL (<30 mg/dL) 08/25/17 02:00 Urine Glucose (UA) Negative mg/dL (NEGATIVE) 08/25/17 02:00 Urine Ketones Negative mg/dL (NEGATIVE) 08/25/17 02:00 Urine Blood Negative (NEGATIVE) 08/25/17 02:00 Urine Nitrate Negative (NEGATIVE) 08/25/17 02:00 Urine Bilirubin Negative (NEGATIVE) 08/25/17 02:00 Urine Urobilinogen 0.2 E.U./dL (<1 E.U./dL) 08/25/17 02:00 Ur Leukocyte Esterase Negative [place]/uL (NEGATIVE) 08/25/17 02:00 Salicylates < 1 mg/dL (2.0-20.0) L 08/25/17 02:00 Urine Opiates Screen Negative (NEGATIVE) 08/25/17 02:00 Urine Methadone Screen Negative (NEGATIVE) 08/25/17 02:00 Acetaminophen 12.0 ug/ml (10.0-20.0) 08/25/17 02:00 Ur Barbiturates Screen Positive (NEGATIVE) H 08/25/17 02:00 Ur Phencyclidine Scrn Negative (NEGATIVE) 08/25/17 02:00 Ur Amphetamines Screen Negative (NEGATIVE) 08/25/17 02:00 U Benzodiazepines Scrn Negative (NEGATIVE) 08/25/17 02:00 U Oth Cocaine Metabols Positive (NEGATIVE) H 08/25/17 02:00 U Cannabinoids Screen Negative (NEGATIVE) 08/25/17 02:00 Alcohol, Quantitative < 10 mg/dL (0-10) 08/25/17 02:00 Attending/Attestation - Attestation I have personally seen and examined this patient.: Yes I have fully participated in the care of the patient.: Yes I have reviewed all pertinent clinical information, including history, physical exam and plan: Yes Notes (Text): 08/27/17 14:32 attending note; Patient seen and examined with resident. Patient is a 51 year old female with history of gastroparesis, hypertension, hypertriglyceridemia, seizure disorders on keppra,migraines, polysubstance abuse , anemia, depression and opioid addiction who was admitted for evaluation of syncope. Patient has multiple admissions in the hospital Before. currently CT head is negative. No orthostatic changes. Echo normal. Carotid Doppler did not show any significant stenosis. cardiology and neurology evaluation appreciated. Chronic migraine. Patient overdoses on Fioricet. Strongly advised to reduce medication intake to avoid rebound headache. Patient is constantly requesting Xanax. Patient was advised by psychiatrist not to prescribe Xanax. Vistaril was recommended. Patient refused. Patient is strongly advised to follow-up with PMD of choice. Patient needs outpatient psychiatric evaluation. The patient does not follow up with any PMD now. Due to chronic Opiate seeking behavior patient changes doctors frequently. Patient is medically stable for discharge. Diagnosis; Dizziness Fioricet overuse Anxiety depression Opiate abuse Noncompliance with follow-up Chronic gastroparesis
[2017-08-26 17:50] VITALS: BP 129/94; RESP 17; O2SAT 98
--- NOTE | 2017-08-27 09:33 | CON ---
DATE: 08/25/2017 Patient is being seen today for a consultation. PRESENTATION: Patient is a 52-year-old female seen at bedside. Patient was admitted to hospital on 08/25/2017 due to having an episode of dizziness after taking Fioricet for headache. She indicates she did not take the medication all at once. She was unconscious for a couple of minutes. Consultation was called due to concerns of polypharmacy. Patient is known to me as she was in the emergency room on 07/29/2017 with a similar presentation. She indicated that she had taken some extra medication due to being unable to sleep at that time as well. Patient was seen with Dr. Guerra today. She denies that she is suicidal or homicidal. She indicates that she continues to live with her 90-year-old mom and 65-year-old brother. They all live together in an apartment. She gets SSI, she states, for Crohn disease since September 2014. She indicates that she was really just trying to sleep. There was no difficulties at all that she would try to hurt herself. Psychiatrically she has been on our unit several times, twice she had to be discharged administratively from the unit for having medications that were not prescribed to her and taking them or crushing them and snorting them while on the unit. She has also been in [facility] psych unit as well. CURRENT MEDICATIONS: Her current medications are mirtazapine 45 mg one at bedtime, Seroquel 100 mg one at bedtime as well as Xanax 1 mg 1 p.o. t.i.d. According to the PMB website, she was filled the Xanax on 07/26/2017, and interestingly enough her U-tox was negative for benzos, but positive for cocaine. On 08/23/2017, she picked up full prescriptions of both mirtazapine and the Seroquel and her brother counted the pills after she had gone to the hospital and the indication seems to be that she took 4 mirtazapine and 3 Seroquel prior to her admission. Medically, the patient is being treated with Keppra for seizure disorder. She indicates that she has Crohn disease, GERD and hypertension as well as anxiety and bipolar disorder. She sees 4.25 for her medical needs and she sees Dr. Montes for her seizure disorder as well as migraines. Of note, her Xanax is filled regularly at 1 month intervals for the last 4 months from the same prescriber for the same amount of pills. Patient denies that she never drinks, has no past or current history of alcohol. Denies use of marijuana. She denies using cocaine, cannot imagine how it got to be in her urine. This is the same scenario from her last admission in that there was cocaine in the urine and she really could not believe that was there. She has not used any other illicit substances, she states. She had a DWI in 1984 and denies any other legal history. She has never been in the , has no access to guns. Her family has a history of mental illness. She has an older brother, who is bipolar and has used drugs and cocaine for a number of years. Patient grew up in [place], [place] and then [place]. Father was in the [employer] and they moved around a lot. Indicates her childhood was difficult because her parents and family were always working at the [employer]. When she got old enough, she was working there too, otherwise she home alone. She did have [place]ian Vanessa or a play therapist, she states. She is the youngest of 3, #3 of 3 and the only girl, oldest brother is 70, the next is 65 and that is one with whom she lives. She indicates that she enjoyed school. She states played sports. 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 She has been twice, both husbands were alcoholic. She has a 25-year-old daughter who is single. She has a 17-year-old daughter, who has a 21-year-old boyfriend with whom she lives and may just had a baby boy. PHYSICAL EXAMINATION: VITAL SIGNS: Include temperature of 98.1, pulse rate of 83, blood pressure of 131/78, and a respiratory rate of 18 along with an O2 sat of room air. MENTAL STATUS EXAMINATION: The patient is somewhat alert and oriented x3. Her eye contact is fair. Her behavior is cooperative. She is immediately med seeking. She wants to know where her Xanax is, she needs her Xanax, it is time for her Xanax to be filled and she has been on it for 14 years. She needs to have it. give to her. Her mood is anxious. Her affect is constricted. Her thoughts are concrete and goal directed. She denies being suicidal or homicidal. Indicates that she hears voices all the time but cannot remember what they say. Indicates she sees people walking as a visual hallucination she has had when she was a child. Denies the presence of delusions or paranoia. Her concentration and focus are scattered. Memory both short and buttermaker helper appears to be selective. Her appetite and her sleep she indicates are off. DIAGNOSTIC IMPRESSION: Bipolar disorder, borderline personality disorder, benzodiazepine dependence. PLAN: Patient denies being suicidal or homicidal, appears in no imminent danger of hurting herself or others. We will continue to follow the patient one more time to ascertain that she remains at her baseline. Patient has a tendency to not follow through on treatment and to sign out early or to terminate treatment early. Thank you for the consult. Zoey Marino APN Janice Guerra MD
== END 2017-08-26 16:50 | disposition home or self-care (01) ==
LOC: ED 23:08 → ERH 08-25 03:12 → 3RSO 08-25 05:12
PROVIDERS: ADMIT Internal Medicine; ATTEND Internal Medicine
DX: R55 Syncope and collapse (principal); E11.43 Type 2 diabetes mellitus with diabetic autonomic (poly)neuropathy; K31.84 Gastroparesis; I10 Essential (primary) hypertension; F13.20 Sedative, hypnotic or anxiolytic dependence, uncomplicated; K21.9 Gastro-esophageal reflux disease without esophagitis; E78.1 Pure hyperglyceridemia; G40.909 Epilepsy, unspecified, not intractable, without status epilepticus; F60.3 Borderline personality disorder; F31.9 Bipolar disorder, unspecified; F14.10 Cocaine abuse, uncomplicated; F11.10 Opioid abuse, uncomplicated; F43.10 Post-traumatic stress disorder, unspecified; G43.909 Migraine, unspecified, not intractable, without status migrainosus; D64.9 Anemia, unspecified; Z91.19 Patient's noncompliance with other medical treatment and regimen; Z87.891 Personal history of nicotine dependence; Z90.49 Acquired absence of other specified parts of digestive tract
CPT/HCPCS: 70450; 80053; 80320; 80324; 80329; 80345; 80346; 80349; 80353; 80358; 80361; 81003; 82550; 82948; 83615; 83992; 84443; 84484; 85025; 93005; 93306; 93880; 97116; 97162; 99283; G0378; G8978; G8979; J1644

== ENCOUNTER 2017-09-15 13:35 | Observation (INO) | payer MEDICAID ==
[2017-09-15] MEDS ORDERED: Famotidine 20mg/50ml 20 MG/50 ML BAG IVPB STA (14:12)
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
--- NOTE | 2017-09-15 15:09 | RAD ---
HISTORY: chest pain COMPARISON: 07/29/2017 FINDINGS: LUNGS: No active pulmonary disease. PLEURA: No significant pleural effusion identified, no pneumothorax apparent. CARDIOVASCULAR: Normal. OSSEOUS STRUCTURES: No significant abnormalities. VISUALIZED UPPER ABDOMEN: Normal. OTHER FINDINGS: None. IMPRESSION: No active disease.
[2017-09-15 15:11] LABS: BASO # 0.02 K/mm3 (0.0-2.0); BASO % 0.4 % (0.0-3.0); EOS # 0.1 (0.0-0.7); EOS % 1.7 % (1.5-5.0); GRAN % 38.8 % (50.0-68.0); HEMOGLOBIN 12.5 g/dL (12.0-16.0); LYMPH # 2.8 (1.2-3.4); LYMPH % 53.9 % (22.0-35.0); MEAN CELL VOLUME 83.8 fl (80.0-105.0); MEAN CORPUSCULAR HGB CONC 32.2 g/dl (31.0-37.0); MEAN PLATELET VOLUME 10.3 fl (7.0-11.0); MONO # 0.3 (0.1-0.6); MONO % 5.2 % (1.0-6.0); RBC 4.63 10^6/uL (3.5-6.1); WHITE BLOOD COUNT 5.2 10^3/ul (4.5-11.0)
[2017-09-15 15:32] LABS: ALB/GLOB RATIO 1.5 (1.1-1.8); ALBUMIN 4.1 g/dL (3.0-4.8); ALT/SGPT 40 U/L (7-56); AST/SGOT 19 U/L (14-36); BLOOD UREA NITROGEN 18 mg/dL (7-21); CALCIUM 9.9 mg/dL (8.4-10.5); GFR AFRICAN-AMERICAN > 60; GFR NON-AFRICAN AMERICAN 58; MAGNESIUM 1.8 mg/dL (1.7-2.2)
[2017-09-15 15:37] LABS: TROPONIN I < 0.01 ng/mL
--- NOTE | 2017-09-15 16:52 | CT ---
PROCEDURE: CT scan of the brain dated 09/15/2017. . HISTORY: Syncope with head injury. COMPARISON: Comparison made with prior CT scan brain 08/25/2017. TECHNIQUE: Contiguous helical/ transaxial computed tomography images were obtained through the head/brain without intravenous contrast. Radiation dose: Total exam DLP = 711.63 mGy-cm. This CT exam was performed using one or more of the following dose reduction techniques: Automated exposure control, adjustment of the mA and/or kV according to patient size, and/or use of iterative reconstruction technique. FINDINGS: HEMORRHAGE: No acute parenchymal, subarachnoid or extra-axial hemorrhage. BRAIN: Re- demonstrated is a localized area of nonspecific encephalomalacia left occipito parietal watershed zone. This could represent some old posttraumatic or post ischemic sequela. Clinical correlation with history recommended. Questionable volume average artifact versus tiny ischemic focus anterior limb right internal capsule. No obvious parenchymal nor extra-axial masses or collections seen on this noncontrast study. Mild generalized volume loss with more prominent and localized bifrontal cortical atrophic changes appear unaltered. Minimal early vascular calcifications both carotid siphons. VENTRICLES: No obstructive hydrocephalus. CALVARIUM: Calvarium intact. PARANASAL SINUSES: Visualized paranasal air complexes well-developed and currently well-aerated. No fluid levels seen to suggest acute hemorrhage or sinusitis. MASTOID AIR CELLS: Unremarkable as visualized. No inflammatory changes. OTHER FINDINGS: Tiny rounded calcifications again seen along the posterior superior surfaces of both globes possibly scleral in location. Fundoscopic examination recommended. IMPRESSION: Re- demonstrated is a localized area of nonspecific encephalomalacia left occipito parietal watershed zone. This could represent some old posttraumatic or post ischemic sequela. Clinical correlation with history recommended. Questionable volume average artifact versus tiny ischemic focus anterior limb right internal capsule Mild generalized volume loss with more prominent and localized bifrontal cortical atrophic changes appear unaltered.
[2017-09-15] MEDS ORDERED: Sodium Chloride 0.9% 1,000 ML IV SCH (20:15)
[2017-09-15] MEDS ORDERED: MIRTAZAPINE 45 MG PO SCH (22:00)
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
[2017-09-15 23:01] VITALS: BMI 21.2
[2017-09-16 06:13] VITALS: BP 104/68; PULSE 59
--- NOTE | 2017-09-16 06:48 | CP.PCM.PN ---
Subjective - Date & Time of Evaluation Date of Evaluation: 09/16/17 Time of Evaluation: 06:44 - Subjective Subjective: S:Requests something for anxiety. Needs heparin lock inserted. Has no other complaints. Pertinent medical record was reviewed. O Last Vital Signs 3 Temp 98.9 F 09/15/17 18:45 Pulse 59 L 09/16/17 06:13 Resp 20 09/15/17 22:22 BP 104/68 09/16/17 06:13 Pulse Ox 98 09/15/17 19:46 Awake, alert, not in distress. LUNGS: Normal breathing pattern. A: Anxiety. Poor venous access. P: # 24 angiocath was inserted in left thumb . Ativan 0.25 mg IV x 1. Objective - Vital Signs/Intake and Output Vital Signs (last 24 hours): Temp Pulse Resp BP Pulse Ox 98.9 F 59 L 20 104/68 98 09/15/17 18:45 09/16/17 06:13 09/15/17 22:22 09/16/17 06:13 09/15/17 19:46 Intake and Output: 09/15/17 09/16/17 18:59 06:59 Intake Total 180 Balance 180 - Medications Medications: Current Medications Gabapentin (Neurontin) 200 mg PO HS PRN PRN Reason: neuropathic pain (i.e. burning Sodium Chloride (Sodium Chloride 0.9%) 1,000 mls @ 80 mls/hr IV .[id number] [facility] Last Admin: 09/15/17 23:09 Dose: 80 mls/hr Isosorbide Mononitrate (Imdur Er) 30 mg PO DAILY [facility] Mirtazapine (Remeron) 45 mg PO HS [facility] Last Admin: 09/15/17 21:25 Dose: 45 mg Ondansetron HCl (Zofran Inj) 4 mg IVP Q6H PRN PRN Reason: Nausea/Vomiting Pantoprazole Sodium (Protonix Inj) 40 mg IVP Q12 [facility] Last Admin: 09/15/17 23:09 Dose: 40 mg Quetiapine Fumarate (Seroquel) 100 mg PO HS [facility] PRN Reason: Protocol Last Admin: 09/15/17 21:25 Dose: 100 mg
[2017-09-16 06:51] LABS: BASO # 0.03 K/mm3 (0.0-2.0); BASO % 0.5 % (0.0-3.0); EOS # 0.1 (0.0-0.7); EOS % 1.8 % (1.5-5.0); GRAN # 1.93 (1.4-6.5); GRAN % 32.1 % (50.0-68.0); HEMOGLOBIN 11.5 g/dL (12.0-16.0); LYMPH # 3.7 (1.2-3.4); LYMPH % 61.8 % (22.0-35.0); MEAN CELL VOLUME 83.3 fl (80.0-105.0); MEAN CORPUSCULAR HEMOGLOBIN 26.3 pg (25.0-35.0); MEAN CORPUSCULAR HGB CONC 31.6 g/dl (31.0-37.0); MEAN PLATELET VOLUME 10.2 fl (7.0-11.0); MONO # 0.2 (0.1-0.6); MONO % 3.8 % (1.0-6.0); RBC 4.37 10^6/uL (3.5-6.1); RED CELL DISTRIBUTION WIDTH 17.3 % (11.5-14.5)
[2017-09-16 06:56] LABS: ALB/GLOB RATIO 1.3 (1.1-1.8); ALBUMIN 3.4 g/dL (3.0-4.8); ALT/SGPT 37 U/L (7-56); AST/SGOT 19 U/L (14-36); BLOOD UREA NITROGEN 19 mg/dL (7-21); CALCIUM 9.5 mg/dL (8.4-10.5); GFR AFRICAN-AMERICAN > 60; GFR NON-AFRICAN AMERICAN > 60; MAGNESIUM 1.8 mg/dL (1.7-2.2)
[2017-09-16 07:06] LABS: TROPONIN I < 0.01 ng/mL
[2017-09-16 08:39] VITALS: RESP 18; TEMP 97.8; O2SAT 95
--- NOTE | 2017-09-16 09:53 | CARD ---
APPROVED REPORT EKG Measurement Heart [id number] NE 130P55 [id number] <Conclusion> Normal sinus rhythm Normal ECG
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
--- NOTE | 2017-09-16 11:03 | CARD ---
APPROVED REPORT EKG Measurement Heart [id number] [place] 124P52 [id number] <Conclusion> Normal sinus rhythm Poor R Progression V1-V2.
--- NOTE | 2017-09-16 12:06 | CP.PCM.DIS ---
<Eng,Peg - Last Filed: 09/16/17 12:15> Provider - Provider Date of Admission: 09/15/17 17:09 Attending physician: Darrell Gatica MD Primary care physician: Catarino Navas MD Consults: Dr. Med Koenig Time Spent in preparation of Discharge (in minutes): 35 Hospital Course - Lab Results Lab Results: Most Recent Lab Values WBC 6.0 10^3/ul (4.5-11.0) 09/16/17 05:30 RBC 4.37 10^6/uL (3.5-6.1) 09/16/17 05:30 Hgb 11.5 g/dL (12.0-16.0) L 09/16/17 05:30 Hct 36.4 % (36.0-48.0) 09/16/17 05:30 MCV 83.3 fl (80.0-105.0) 09/16/17 05:30 MCH 26.3 pg (25.0-35.0) 09/16/17 05:30 MCHC 31.6 g/dl (31.0-37.0) 09/16/17 05:30 RDW 17.3 % (11.5-14.5) H 09/16/17 05:30 Plt Count 236 10^3/uL (120.0-450.0) 09/16/17 05:30 MPV 10.2 fl (7.0-11.0) 09/16/17 05:30 Gran % 32.1 % (50.0-68.0) L 09/16/17 05:30 Lymph % (Auto) 61.8 % (22.0-35.0) H 09/16/17 05:30 [place] % (Auto) 3.8 % (1.0-6.0) 09/16/17 05:30 Eos % (Auto) 1.8 % (1.5-5.0) 09/16/17 05:30 Baso % (Auto) 0.5 % (0.0-3.0) 09/16/17 05:30 Gran # 1.93 (1.4-6.5) 09/16/17 05:30 Lymph # (Auto) 3.7 (1.2-3.4) H 09/16/17 05:30 [place] # (Auto) 0.2 (0.1-0.6) 09/16/17 05:30 Eos # (Auto) 0.1 (0.0-0.7) 09/16/17 05:30 Baso # (Auto) 0.03 K/mm3 (0.0-2.0) 09/16/17 05:30 Sodium 143 mmol/L (132-148) 09/16/17 05:30 Potassium 3.7 mmol/L (3.6-5.0) 09/16/17 05:30 Chloride 111 mmol/L (98-107) H 09/16/17 05:30 Carbon Dioxide 19 mmol/L (21-33) L 09/16/17 05:30 Anion Gap 17 (10-20) 09/16/17 05:30 BUN 19 mg/dL (7-21) 09/16/17 05:30 Creatinine 0.9 mg/dl (0.7-1.2) 09/16/17 05:30 Est GFR ( Amer) > 60 09/16/17 05:30 Est GFR (Non-Af Amer) > 60 09/16/17 05:30 Random Glucose 91 mg/dL (70-110) 09/16/17 05:30 Calcium 9.5 mg/dL (8.4-10.5) 09/16/17 05:30 Phosphorus 3.8 mg/dL (2.5-4.5) 09/16/17 05:30 Magnesium 1.8 mg/dL (1.7-2.2) 09/16/17 05:30 Total Bilirubin 0.4 mg/dL (0.2-1.3) 09/16/17 05:30 AST 19 U/L (14-36) 09/16/17 05:30 ALT 37 U/L (7-56) 09/16/17 05:30 Alkaline Phosphatase 76 U/L (38-126) 09/16/17 05:30 Lactate Dehydrogenase 319 U/L (333-699) L 09/15/17 13:43 Total Creatine Kinase 28 U/L (35-230) L 09/15/17 13:43 Troponin I < 0.01 ng/mL 09/16/17 05:30 Total Protein 6.0 g/dL (5.8-8.3) 09/16/17 05:30 Albumin 3.4 g/dL (3.0-4.8) 09/16/17 05:30 Globulin 2.6 gm/dL 09/16/17 05:30 Albumin/Globulin Ratio 1.3 (1.1-1.8) 09/16/17 05:30 - Hospital Course Hospital Course: CC: Chest pressure, fall with head trauma HPI: This is a 52 yo F with extensive (and questionable) PMH including gastroparesis, HTN, hypertriglyceridemia, HLD, DM, PUD, DVT, Migraines , seizure disorders on keppra, GERD, polysubstance abuse, anemia, and extensive psych history who presented to [facility] with complaint of chest pressure and generalized shakiness for 2-3 days. After being seen by ED staff, prior to exam by medical team, patient fell while leaving the bathroom unassisted ( against instructions given to her by ED staff), and reported hitting her head, reports partial but not full loss of consciousness. At time of exam, patient reports not sure where she struck her head, thinks right occipital region (no bruising or swelling noted at that area), but denies full LOC, post-ictal state , recalls all events preceding and proceeding the near-syncopal event, and has full recall of events prior to and after fall. Admits to vomiting and watery diarrhea, several episodes each for the last 1-2 days, neither bloody (and non- bilious emesis), but is able to keep down liquids. Denies chest pain, shortness of breath, productive cough, fever, chills, dysuria, hematuria, bowel/ bladder incontinence, tongue bitting, or any recent seizures. Reports compliance with all of her medications, but repeatedly asking for more pain and/ or anxiety medications during and after interview/exam. All other ROS in 12- system review negative ===== CT head was done showing no acute or new findings per radiologist. Neurology Dr. Jovel was consulted and cardiology Dr. Koenig was consulted. Patient seen and examined at bedside. Patient not showing any tremors, irritation, signs of withdrawal. Patient denies fever, chills, nausea, vomiting, diarrhea. Patient signed AMA and left the hospital. - Date & Time of H&P Date of H&P: 09/16/17 Time of H&P: 12:06 Discharge Exam - Head Exam Head Exam: ATRAUMATIC, NORMAL INSPECTION, NORMOCEPHALIC - Eye Exam Eye Exam: EOMI, Normal appearance - Neck Exam Neck exam: Full Rom - Respiratory Exam Respiratory Exam: Chest Wall Tenderness, Clear to PA & Lateral, NORMAL BREATHING PATTERN, UNREMARKABLE. absent: Accessory Muscle Use - Cardiovascular Exam Cardiovascular Exam: REGULAR RHYTHM, +S1, +S2 - GI/Abdominal Exam GI & Abdominal Exam: Normal Bowel Sounds, Soft. absent: Rigid, Tenderness - Extremities Exam Extremities exam: full ROM - Back Exam Back exam: FULL ROM - Neurological Exam Neurological exam: Alert, CN II-XII Intact, Normal Gait, Oriented x3 - Psychiatric Exam Psychiatric exam: Normal Affect, Normal Mood - Skin Skin Exam: Dry, Intact, Normal Color, Warm Discharge Plan - Follow Up Plan Condition: FAIR Disposition: AGAINST MEDICAL ADVICE Patient education suggested?: No Referrals: Catarino Navas MD [Primary Care Provider] - <Darrell Gatica - Last Filed: 09/16/17 12:57> Provider - Provider Date of Admission: 09/15/17 17:09 Attending physician: Darrell Gatica MD Primary care physician: Catarino Navas MD Hospital Course - Lab Results Lab Results: Most Recent Lab Values WBC 6.0 10^3/ul (4.5-11.0) 09/16/17 05:30 RBC 4.37 10^6/uL (3.5-6.1) 09/16/17 05:30 Hgb 11.5 g/dL (12.0-16.0) L 09/16/17 05:30 Hct 36.4 % (36.0-48.0) 09/16/17 05:30 MCV 83.3 fl (80.0-105.0) 09/16/17 05:30 MCH 26.3 pg (25.0-35.0) 09/16/17 05:30 MCHC 31.6 g/dl (31.0-37.0) 09/16/17 05:30 RDW 17.3 % (11.5-14.5) H 09/16/17 05:30 Plt Count 236 10^3/uL (120.0-450.0) 09/16/17 05:30 MPV 10.2 fl (7.0-11.0) 09/16/17 05:30 Gran % 32.1 % (50.0-68.0) L 09/16/17 05:30 Lymph % (Auto) 61.8 % (22.0-35.0) H 09/16/17 05:30 [place] % (Auto) 3.8 % (1.0-6.0) 09/16/17 05:30 Eos % (Auto) 1.8 % (1.5-5.0) 09/16/17 05:30 Baso % (Auto) 0.5 % (0.0-3.0) 09/16/17 05:30 Gran # 1.93 (1.4-6.5) 09/16/17 05:30 Lymph # (Auto) 3.7 (1.2-3.4) H 09/16/17 05:30 [place] # (Auto) 0.2 (0.1-0.6) 09/16/17 05:30 Eos # (Auto) 0.1 (0.0-0.7) 09/16/17 05:30 Baso # (Auto) 0.03 K/mm3 (0.0-2.0) 09/16/17 05:30 Sodium 143 mmol/L (132-148) 09/16/17 05:30 Potassium 3.7 mmol/L (3.6-5.0) 09/16/17 05:30 Chloride 111 mmol/L (98-107) H 09/16/17 05:30 Carbon Dioxide 19 mmol/L (21-33) L 09/16/17 05:30 Anion Gap 17 (10-20) 09/16/17 05:30 BUN 19 mg/dL (7-21) 09/16/17 05:30 Creatinine 0.9 mg/dl (0.7-1.2) 09/16/17 05:30 Est GFR ( Amer) > 60 09/16/17 05:30 Est GFR (Non-Af Amer) > 60 09/16/17 05:30 Random Glucose 91 mg/dL (70-110) 09/16/17 05:30 Calcium 9.5 mg/dL (8.4-10.5) 09/16/17 05:30 Phosphorus 3.8 mg/dL (2.5-4.5) 09/16/17 05:30 Magnesium 1.8 mg/dL (1.7-2.2) 09/16/17 05:30 Total Bilirubin 0.4 mg/dL (0.2-1.3) 09/16/17 05:30 AST 19 U/L (14-36) 09/16/17 05:30 ALT 37 U/L (7-56) 09/16/17 05:30 Alkaline Phosphatase 76 U/L (38-126) 09/16/17 05:30 Lactate Dehydrogenase 319 U/L (333-699) L 09/15/17 13:43 Total Creatine Kinase 28 U/L (35-230) L 09/15/17 13:43 Troponin I < 0.01 ng/mL 09/16/17 05:30 Total Protein 6.0 g/dL (5.8-8.3) 09/16/17 05:30 Albumin 3.4 g/dL (3.0-4.8) 09/16/17 05:30 Globulin 2.6 gm/dL 09/16/17 05:30 Albumin/Globulin Ratio 1.3 (1.1-1.8) 09/16/17 05:30 Attending/Attestation - Attestation I have personally seen and examined this patient.: Yes I have fully participated in the care of the patient.: Yes I have reviewed all pertinent clinical information, including history, physical exam and plan: Yes Notes (Text): 09/16/17 12:54 52 year old female with past medical histoyr of PUD, gastroparesis, seizures, migraines, extensive psychiatric history and substance abuse who presented with complaint of chest pain and anxiety. She also had near syncopal episode in the ER while going to the bathroom. CT head reviewed as above. Cardiology and neurology evaluations were requested along with physical therapy. This morning she stated chest pain had slightly improved. She was requesting xanax for anxiety and fioricet for chronic migraines. It was explained to her we would slowly resume medications as tolerated and avoid over sedative medications given her clinical presentation. Utox was also ordered which she did not provide. She shortly signed out AMA. Darrell Gatica MD Hospitalist.
--- NOTE | 2017-09-16 12:39 | CARD ---
APPROVED REPORT EKG Measurement Heart [id number] AL 106P6 [id number] <Conclusion> Sinus rhythm with short AL Otherwise normal ECG
[2017-09-16] MEDS ORDERED: Pantoprazole 40 mg EC Tab PO SCH (22:00)
--- NOTE | 2017-09-17 09:40 | CARD ---
APPROVED REPORT EKG Measurement Heart [id number] [place] 128P60 [id number] <Conclusion> Sinus bradycardia Otherwise normal ECG
== END 2017-09-16 11:37 | disposition left against medical advice (07) ==
LOC: ED 13:35 → ERH 17:09 → 3RNO 19:48
PROVIDERS: ADMIT Internal Medicine; ATTEND Internal Medicine
DX: R07.9 Chest pain, unspecified (principal); R55 Syncope and collapse; E11.43 Type 2 diabetes mellitus with diabetic autonomic (poly)neuropathy; K31.84 Gastroparesis; K27.9 Peptic ulcer, site unspecified, unspecified as acute or chronic, without hemorrhage or perforation; G43.909 Migraine, unspecified, not intractable, without status migrainosus; F41.0 Panic disorder [episodic paroxysmal anxiety]; K21.9 Gastro-esophageal reflux disease without esophagitis; I10 Essential (primary) hypertension; E78.5 Hyperlipidemia, unspecified; D64.9 Anemia, unspecified; E78.1 Pure hyperglyceridemia; G40.909 Epilepsy, unspecified, not intractable, without status epilepticus; F32.9 Major depressive disorder, single episode, unspecified; Z86.718 Personal history of other venous thrombosis and embolism; Z87.891 Personal history of nicotine dependence
CPT/HCPCS: 36415; 70450; 71045; 80053; 82550; 83615; 83735; 84100; 84484; 85025; 93005; 96365; 99285; C9113; G0378; J2060; J7040

== ENCOUNTER 2017-09-28 23:28 | Observation (INO) | payer MEDICAID ==
[2017-09-28 23:35] VITALS: BMI 20.3
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
[2017-09-29 00:52] LABS: BASO # 0.02 K/mm3 (0.0-2.0); BASO % 0.3 % (0.0-3.0); EOS # 0.2 (0.0-0.7); EOS % 3.5 % (1.5-5.0); GRAN # 2.46 (1.4-6.5); GRAN % 37.4 % (50.0-68.0); HEMOGLOBIN 11.3 g/dL (12.0-16.0); LYMPH # 3.5 (1.2-3.4); LYMPH % 52.7 % (22.0-35.0); MEAN CELL VOLUME 84.4 fl (80.0-105.0); MONO # 0.4 (0.1-0.6); MONO % 6.1 % (1.0-6.0); RBC 4.18 10^6/uL (3.5-6.1); RED CELL DISTRIBUTION WIDTH 18.2 % (11.5-14.5); WHITE BLOOD COUNT 6.6 10^3/ul (4.5-11.0)
[2017-09-29 01:05] LABS: ALB/GLOB RATIO 1.3 (1.1-1.8); ALBUMIN 3.8 g/dL (3.0-4.8); ALT/SGPT 73 U/L (7-56); AST/SGOT 19 U/L (14-36); BLOOD UREA NITROGEN 35 mg/dL (7-21); CALCIUM 9.5 mg/dL (8.4-10.5); GFR AFRICAN-AMERICAN > 60; GFR NON-AFRICAN AMERICAN 58
[2017-09-29 01:07] LABS: TROPONIN I < 0.01 ng/mL
[2017-09-29 02:51] LABS: URINE BILIRUBIN NEGATIVE (NEGATIVE); URINE BLOOD NEGATIVE (NEGATIVE); URINE GLUCOSE (UA) NEGATIVE (NEGATIVE); URINE LEUKOCYTE ESTERASE MODERATE Leu/uL (NEGATIVE); URINE PROTEIN NEGATIVE mg/dL (<30 mg/dL); URINE UROBILINOGEN 0.2 E.U./dL (<1 E.U./dL)
[2017-09-29 02:55] LABS: URINE APPEARANCE SL CLOUDY (CLEAR); URINE COLOR STRAW (YELLOW)
[2017-09-29 03:06] LABS: URINE RBC 0 - 2 /hpf (0-2)
[2017-09-29 03:07] LABS: URINE BACTERIA OCC (NEG)
[2017-09-29] MEDS ORDERED: Sodium Chloride 0.9% 1,000 ML IV SCH (03:30)
--- NOTE | 2017-09-29 04:39 | CT ---
EXAM: CT Head Without Intravenous Contrast CLINICAL HISTORY: 52 years old, female; Signs and symptoms; Syncope and collapse TECHNIQUE: Axial computed tomography images of the head/brain without intravenous contrast. All CT scans at this facility use one or more dose reduction techniques, viz.: automated exposure control; ma/kV adjustment per patient size (including targeted exams where dose is matched to indication; i.e. head); or iterative reconstruction technique. Coronal and sagittal reformatted images were created and reviewed. COMPARISON: CT - HEAD W/O CONTRAST 2017-09-15 16:30 FINDINGS: Brain: There is mild diffuse cerebral atrophy present, consistent with this patient's age. No hemorrhage. No significant white matter disease. Ventricles: Unremarkable. No ventriculomegaly. Bones/joints: Unremarkable. No acute fracture. Soft tissues: Unremarkable. Sinuses: Unremarkable as visualized. No acute sinusitis. Mastoid air cells: Unremarkable as visualized. No mastoid effusion. IMPRESSION: No acute intracranial findings.
[2017-09-29] MEDS ORDERED: Multivitamin (MVI) 10 ML, Thiamine 100 MG, Folic Acid 1 MG in Sodium Chloride 0.9% 1,00... IV ONE (04:42)
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
[2017-09-29] MEDS: Pantoprazole 40 mg EC Tab PO SCH (06:04)
[2017-09-29] MEDS ORDERED: Magnesium Sulfate 2 GM in Sodium Chloride 0.9% 100 ML IVPB ONE (08:13)
[2017-09-29 08:17] LABS: HEMOGLOBIN 10.3 g/dL (12.0-16.0); MEAN CELL VOLUME 84.1 fl (80.0-105.0); MEAN CORPUSCULAR HEMOGLOBIN 26.4 pg (25.0-35.0); MEAN CORPUSCULAR HGB CONC 31.4 g/dl (31.0-37.0); MEAN PLATELET VOLUME 9.7 fl (7.0-11.0); RBC 3.9 10^6/uL (3.5-6.1); RED CELL DISTRIBUTION WIDTH 18.2 % (11.5-14.5); WHITE BLOOD COUNT 5.2 10^3/ul (4.5-11.0)
[2017-09-29 08:27] LABS: ALB/GLOB RATIO 1.2 (1.1-1.8); ALBUMIN 3.3 g/dL (3.0-4.8); ALT/SGPT 63 U/L (7-56); AST/SGOT 18 U/L (14-36); BLOOD UREA NITROGEN 26 mg/dL (7-21); CALCIUM 9.5 mg/dL (8.4-10.5); GFR AFRICAN-AMERICAN > 60; GFR NON-AFRICAN AMERICAN > 60; INR 1.03 (0.93-1.08); PROTHROMBIN TIME 11.9 SECONDS (9.4-12.5)
[2017-09-29 08:35] LABS: TROPONIN I < 0.01 ng/mL
[2017-09-29 08:40] LABS: BARBITURATES, UR NEGATIVE (NEGATIVE); BENZODIAZEPINES, UR POSITIVE (NEGATIVE); OPIATES, UR NEGATIVE (NEGATIVE); PHENCYCLIDINE, UR NEGATIVE (NEGATIVE)
--- NOTE | 2017-09-29 08:53 | RAD ---
HISTORY: cp COMPARISON: 09/15/2017 FINDINGS: LUNGS: No active pulmonary disease. PLEURA: No significant pleural effusion identified, no pneumothorax apparent. CARDIOVASCULAR: Normal. OSSEOUS STRUCTURES: No significant abnormalities. VISUALIZED UPPER ABDOMEN: Normal. OTHER FINDINGS: None. IMPRESSION: No active disease.
[2017-09-29] MEDS: Apap-Butalbital-Caffeine 325-50-40mg Tab PO PRN ×3 (10:49→22:03)
[2017-09-29 14:25] LABS: TROPONIN I < 0.01 ng/mL
--- NOTE | 2017-09-29 16:19 | CARD ---
APPROVED REPORT EKG Measurement Heart [id number] <Conclusion> Normal sinus rhythm Normal ECG
[2017-09-30] MEDS: Apap-Butalbital-Caffeine 325-50-40mg Tab PO PRN ×2 (05:55→12:05)
[2017-09-30] MEDS: Pantoprazole 40 mg EC Tab PO SCH (05:55)
[2017-09-30 06:26] LABS: HEMOGLOBIN 11.3 g/dL (12.0-16.0); MEAN CELL VOLUME 84.7 fl (80.0-105.0); MEAN CORPUSCULAR HEMOGLOBIN 26.7 pg (25.0-35.0); MEAN CORPUSCULAR HGB CONC 31.5 g/dl (31.0-37.0); MEAN PLATELET VOLUME 10.1 fl (7.0-11.0); RBC 4.24 10^6/uL (3.5-6.1); RED CELL DISTRIBUTION WIDTH 18.5 % (11.5-14.5); WHITE BLOOD COUNT 5.9 10^3/ul (4.5-11.0)
[2017-09-30 06:49] LABS: INR 0.94 (0.93-1.08); PROTHROMBIN TIME 10.8 SECONDS (9.4-12.5)
[2017-09-30 07:21] LABS: ALB/GLOB RATIO 1.2 (1.1-1.8); ALBUMIN 3.5 g/dL (3.0-4.8); ALT/SGPT 55 U/L (7-56); AST/SGOT 20 U/L (14-36); BLOOD UREA NITROGEN 28 mg/dL (7-21); CALCIUM 9.9 mg/dL (8.4-10.5); GFR AFRICAN-AMERICAN > 60; GFR NON-AFRICAN AMERICAN > 60
[2017-09-30 08:15] VITALS: PULSE 87; RESP 18; TEMP 97.4; O2SAT 97
[2017-09-30] MEDS ORDERED: POLYETHYLENE GLYCOL 3350 17 GM/Dose PACKET PO SCH (10:30)
[2017-09-30 11:33] VITALS: BP 121/63
--- NOTE | 2017-10-02 13:18 | CP.PCM.DIS ---
<Sincere Bolivar - Last Filed: 10/02/17 13:08> Provider - Provider Date of Admission: 09/29/17 03:52 Attending physician: Reinaldo Eng MD Time Spent in preparation of Discharge (in minutes): 43 Hospital Course - Lab Results Lab Results: Most Recent Lab Values WBC 5.9 10^3/ul (4.5-11.0) 09/30/17 05:30 RBC 4.24 10^6/uL (3.5-6.1) 09/30/17 05:30 Hgb 11.3 g/dL (12.0-16.0) L 09/30/17 05:30 Hct 35.9 % (36.0-48.0) L 09/30/17 05:30 MCV 84.7 fl (80.0-105.0) 09/30/17 05:30 MCH 26.7 pg (25.0-35.0) 09/30/17 05:30 MCHC 31.5 g/dl (31.0-37.0) 09/30/17 05:30 RDW 18.5 % (11.5-14.5) H 09/30/17 05:30 Plt Count 258 10^3/uL (120.0-450.0) 09/30/17 05:30 MPV 10.1 fl (7.0-11.0) 09/30/17 05:30 Gran % 37.4 % (50.0-68.0) L 09/29/17 00:30 Lymph % (Auto) 52.7 % (22.0-35.0) H 09/29/17 00:30 [place] % (Auto) 6.1 % (1.0-6.0) H 09/29/17 00:30 Eos % (Auto) 3.5 % (1.5-5.0) 09/29/17 00:30 Baso % (Auto) 0.3 % (0.0-3.0) 09/29/17 00:30 Gran # 2.46 (1.4-6.5) 09/29/17 00:30 Lymph # (Auto) 3.5 (1.2-3.4) H 09/29/17 00:30 [place] # (Auto) 0.4 (0.1-0.6) 09/29/17 00:30 Eos # (Auto) 0.2 (0.0-0.7) 09/29/17 00:30 Baso # (Auto) 0.02 K/mm3 (0.0-2.0) 09/29/17 00:30 PT 10.8 SECONDS (9.4-12.5) 09/30/17 05:30 INR 0.94 (0.93-1.08) 09/30/17 05:30 Sodium 143 mmol/L (132-148) 09/30/17 05:30 Potassium 4.5 mmol/L (3.6-5.0) 09/30/17 05:30 Chloride 114 mmol/L (98-107) H 09/30/17 05:30 Carbon Dioxide 21 mmol/L (21-33) 09/30/17 05:30 Anion Gap 13 (10-20) 09/30/17 05:30 BUN 28 mg/dL (7-21) H 09/30/17 05:30 Creatinine 0.9 mg/dl (0.7-1.2) 09/30/17 05:30 Est GFR ( Amer) > 60 09/30/17 05:30 Est GFR (Non-Af Amer) > 60 09/30/17 05:30 POC Glucose (mg/dL) 120 mg/dL (65-110) H 09/29/17 19:44 Random Glucose 97 mg/dL (70-110) 09/30/17 05:30 Hemoglobin A1c 6.6 % (4.2-6.5) H 09/29/17 09:50 Calcium 9.9 mg/dL (8.4-10.5) 09/30/17 05:30 Magnesium 1.5 mg/dL (1.7-2.2) L 09/29/17 07:55 Total Bilirubin 0.2 mg/dL (0.2-1.3) 09/30/17 05:30 AST 20 U/L (14-36) 09/30/17 05:30 ALT 55 U/L (7-56) 09/30/17 05:30 Alkaline Phosphatase 87 U/L (38-126) 09/30/17 05:30 Lactate Dehydrogenase 251 U/L (333-699) L 09/29/17 13:50 Total Creatine Kinase 35 U/L (35-230) 09/29/17 13:50 Troponin I < 0.01 ng/mL 09/29/17 13:50 Total Protein 6.4 g/dL (5.8-8.3) 09/30/17 05:30 Albumin 3.5 g/dL (3.0-4.8) 09/30/17 05:30 Globulin 2.9 gm/dL 09/30/17 05:30 Albumin/Globulin Ratio 1.2 (1.1-1.8) 09/30/17 05:30 Urine Color Straw (YELLOW) 09/29/17 02:40 Urine Appearance Sl cloudy (CLEAR) 09/29/17 02:40 Urine pH 6.0 (4.7-8.0) 09/29/17 02:40 Ur Specific [place] 1.015 (1.005-1.035) 09/29/17 02:40 Urine Protein Negative mg/dL (<30 mg/dL) 09/29/17 02:40 Urine Glucose (UA) Negative mg/dL (NEGATIVE) 09/29/17 02:40 Urine Ketones Negative mg/dL (NEGATIVE) 09/29/17 02:40 Urine Blood Negative (NEGATIVE) 09/29/17 02:40 Urine Nitrate Negative (NEGATIVE) 09/29/17 02:40 Urine Bilirubin Negative (NEGATIVE) 09/29/17 02:40 Urine Urobilinogen 0.2 E.U./dL (<1 E.U./dL) 09/29/17 02:40 Ur Leukocyte Esterase Moderate William/uL (NEGATIVE) H 09/29/17 02:40 Urine RBC 0 - 2 /hpf (0-2) 09/29/17 02:40 Urine WBC 2 - 5 /hpf (0-6) 09/29/17 02:40 Ur Epithelial Cells 1 - 3 /hpf (0-5) 09/29/17 02:40 Urine Bacteria Occ (NEG) 09/29/17 02:40 Urine Opiates Screen Negative (NEGATIVE) 09/29/17 04:46 Urine Methadone Screen Negative (NEGATIVE) 09/29/17 04:46 Ur Barbiturates Screen Negative (NEGATIVE) 09/29/17 04:46 Ur Phencyclidine Scrn Negative (NEGATIVE) 09/29/17 04:46 Ur Amphetamines Screen Negative (NEGATIVE) 09/29/17 04:46 U Benzodiazepines Scrn Positive (NEGATIVE) 09/29/17 04:46 U Oth Cocaine Metabols Positive (NEGATIVE) H 09/29/17 04:46 U Cannabinoids Screen Negative (NEGATIVE) 09/29/17 04:46 Alcohol, Quantitative < 10 mg/dL (0-10) 09/29/17 07:55 - Hospital Course Hospital Course: 52 year old female with past medical history of gastroparesis, HTN, hypertriglyceridemia, seizure disorder on keppra, GERD, migraines, polysubstance abuse, anemia and extensive psych history who [place] [facility] [place] of chest pressure and one syncopal episode. An EKG showed NSR at 96bpm. A head CT showed no acute IC abnormalities. Orthostatic VS were normal. A UDS was positive for benzo's and cocaine. Three serial troponins were negative. An echo and carotid duplex were noted to be normal in 08/2017. She was started on IVF and fall precautions. She was started on her home medications. She was counseled on substance cessation throughout her admission with verbal agreement by patient. She was discharged on 09/30/2017 with instructions to follow up with her PMD. - Date & Time of H&P Date of H&P: 09/29/17 Time of H&P: 05:34 Discharge Exam - Head Exam Head Exam: ATRAUMATIC, NORMAL INSPECTION - Eye Exam Eye Exam: EOMI, Normal appearance Pupil Exam: NORMAL ACCOMODATION, PERRL - ENT Exam ENT Exam: Mucous Membranes Moist, Normal Exam - Neck Exam Neck exam: Full Rom, Normal Inspection - Respiratory Exam Respiratory Exam: Clear to PA & Lateral, NORMAL BREATHING PATTERN, UNREMARKABLE - Cardiovascular Exam Cardiovascular Exam: REGULAR RHYTHM - GI/Abdominal Exam GI & Abdominal Exam: Normal Bowel Sounds, Unremarkable. absent: Tenderness - Extremities Exam Extremities exam: normal inspection - Back Exam Back exam: NORMAL INSPECTION - Neurological Exam Neurological exam: Alert, CN II-XII Intact, Normal Gait, Oriented x3, Reflexes Normal - Psychiatric Exam Psychiatric exam: Normal Affect, Normal Mood - Skin Skin Exam: Dry, Intact, Normal Color, Warm Discharge Plan - Discharge Medications Prescriptions: Acetaminophen/Butalbital/Caf [Fioricet] 1 tab PO BID PRN #5 tab PRN Reason: Headache Atenolol [Tenormin] 12.5 mg PO BID #28 tab Polyethylene Glycol 3350 [Miralax] 17 gm PO DAILY PRN #10 packet PRN Reason: Constipation - Follow Up Plan Condition: GOOD Disposition: HOME/ ROUTINE Instructions: Cocaine Use Disorder, Chest Pain (DC), Drug Abuse and Drug Addiction (DC), Atenolol Additional Instructions: Please follow up with your primary care doctor within one week for post hospitalization follow-up. Two of your medications have been discontinued, per our recommendations. Please discontinue Lisinopril and Metoprolol, as your blood pressure has been low since your admission. You have been started on Atenolol for blood pressure control. Information regarding this medication has been provided in this paperwork. Please take all medications as prescribed Please stop using illicit drugs, alcohol and tobacco. These substances are harmful to you and need to be discontinued immediately. If your symptoms worsen or persist, please seek emergency medical attention <Reinaldo Eng - Last Filed: 10/02/17 13:54> Provider - Provider Date of Admission: 09/29/17 03:52 Attending physician: Reinaldo Eng MD Hospital Course - Lab Results Lab Results: Most Recent Lab Values WBC 5.9 10^3/ul (4.5-11.0) 09/30/17 05:30 RBC 4.24 10^6/uL (3.5-6.1) 09/30/17 05:30 Hgb 11.3 g/dL (12.0-16.0) L 09/30/17 05:30 Hct 35.9 % (36.0-48.0) L 09/30/17 05:30 MCV 84.7 fl (80.0-105.0) 09/30/17 05:30 MCH 26.7 pg (25.0-35.0) 09/30/17 05:30 MCHC 31.5 g/dl (31.0-37.0) 09/30/17 05:30 RDW 18.5 % (11.5-14.5) H 09/30/17 05:30 Plt Count 258 10^3/uL (120.0-450.0) 09/30/17 05:30 MPV 10.1 fl (7.0-11.0) 09/30/17 05:30 Gran % 37.4 % (50.0-68.0) L 09/29/17 00:30 Lymph % (Auto) 52.7 % (22.0-35.0) H 09/29/17 00:30 [place] % (Auto) 6.1 % (1.0-6.0) H 09/29/17 00:30 Eos % (Auto) 3.5 % (1.5-5.0) 09/29/17 00:30 Baso % (Auto) 0.3 % (0.0-3.0) 09/29/17 00:30 Gran # 2.46 (1.4-6.5) 09/29/17 00:30 Lymph # (Auto) 3.5 (1.2-3.4) H 09/29/17 00:30 [place] # (Auto) 0.4 (0.1-0.6) 09/29/17 00:30 Eos # (Auto) 0.2 (0.0-0.7) 09/29/17 00:30 Baso # (Auto) 0.02 K/mm3 (0.0-2.0) 09/29/17 00:30 PT 10.8 SECONDS (9.4-12.5) 09/30/17 05:30 INR 0.94 (0.93-1.08) 09/30/17 05:30 Sodium 143 mmol/L (132-148) 09/30/17 05:30 Potassium 4.5 mmol/L (3.6-5.0) 09/30/17 05:30 Chloride 114 mmol/L (98-107) H 09/30/17 05:30 Carbon Dioxide 21 mmol/L (21-33) 09/30/17 05:30 Anion Gap 13 (10-20) 09/30/17 05:30 BUN 28 mg/dL (7-21) H 09/30/17 05:30 Creatinine 0.9 mg/dl (0.7-1.2) 09/30/17 05:30 Est GFR ( Amer) > 60 09/30/17 05:30 Est GFR (Non-Af Amer) > 60 09/30/17 05:30 POC Glucose (mg/dL) 120 mg/dL (65-110) H 09/29/17 19:44 Random Glucose 97 mg/dL (70-110) 09/30/17 05:30 Hemoglobin A1c 6.6 % (4.2-6.5) H 09/29/17 09:50 Calcium 9.9 mg/dL (8.4-10.5) 09/30/17 05:30 Magnesium 1.5 mg/dL (1.7-2.2) L 09/29/17 07:55 Total Bilirubin 0.2 mg/dL (0.2-1.3) 09/30/17 05:30 AST 20 U/L (14-36) 09/30/17 05:30 ALT 55 U/L (7-56) 09/30/17 05:30 Alkaline Phosphatase 87 U/L (38-126) 09/30/17 05:30 Lactate Dehydrogenase 251 U/L (333-699) L 09/29/17 13:50 Total Creatine Kinase 35 U/L (35-230) 09/29/17 13:50 Troponin I < 0.01 ng/mL 09/29/17 13:50 Total Protein 6.4 g/dL (5.8-8.3) 09/30/17 05:30 Albumin 3.5 g/dL (3.0-4.8) 09/30/17 05:30 Globulin 2.9 gm/dL 09/30/17 05:30 Albumin/Globulin Ratio 1.2 (1.1-1.8) 09/30/17 05:30 Urine Color Straw (YELLOW) 09/29/17 02:40 Urine Appearance Sl cloudy (CLEAR) 09/29/17 02:40 Urine pH 6.0 (4.7-8.0) 09/29/17 02:40 Ur Specific [place] 1.015 (1.005-1.035) 09/29/17 02:40 Urine Protein Negative mg/dL (<30 mg/dL) 09/29/17 02:40 Urine Glucose (UA) Negative mg/dL (NEGATIVE) 09/29/17 02:40 Urine Ketones Negative mg/dL (NEGATIVE) 09/29/17 02:40 Urine Blood Negative (NEGATIVE) 09/29/17 02:40 Urine Nitrate Negative (NEGATIVE) 09/29/17 02:40 Urine Bilirubin Negative (NEGATIVE) 09/29/17 02:40 Urine Urobilinogen 0.2 E.U./dL (<1 E.U./dL) 09/29/17 02:40 Ur Leukocyte Esterase Moderate William/uL (NEGATIVE) H 09/29/17 02:40 Urine RBC 0 - 2 /hpf (0-2) 09/29/17 02:40 Urine WBC 2 - 5 /hpf (0-6) 09/29/17 02:40 Ur Epithelial Cells 1 - 3 /hpf (0-5) 09/29/17 02:40 Urine Bacteria Occ (NEG) 09/29/17 02:40 Urine Opiates Screen Negative (NEGATIVE) 09/29/17 04:46 Urine Methadone Screen Negative (NEGATIVE) 09/29/17 04:46 Ur Barbiturates Screen Negative (NEGATIVE) 09/29/17 04:46 Ur Phencyclidine Scrn Negative (NEGATIVE) 09/29/17 04:46 Ur Amphetamines Screen Negative (NEGATIVE) 09/29/17 04:46 U Benzodiazepines Scrn Positive (NEGATIVE) 09/29/17 04:46 U Oth Cocaine Metabols Positive (NEGATIVE) H 09/29/17 04:46 U Cannabinoids Screen Negative (NEGATIVE) 09/29/17 04:46 Alcohol, Quantitative < 10 mg/dL (0-10) 09/29/17 07:55 Attending/Attestation - Attestation I have personally seen and examined this patient.: Yes I have fully participated in the care of the patient.: Yes I have reviewed all pertinent clinical information, including history, physical exam and plan: Yes Notes (Text): I have seen nd examined the patient at bedside. Agree with the above note. Counselling provided regarding narcotics abuse. Patient will follow up with PMD Dr Navas.
== END 2017-09-30 14:28 | disposition home or self-care (01) ==
LOC: ED 23:28 → ERH 09-29 03:52 → 3RNO 09-29 05:11
PROVIDERS: ADMIT Internal Medicine; ATTEND Hospitalist
DX: R07.89 Other chest pain (principal); R55 Syncope and collapse; F41.9 Anxiety disorder, unspecified; E11.43 Type 2 diabetes mellitus with diabetic autonomic (poly)neuropathy; K31.84 Gastroparesis; I10 Essential (primary) hypertension; K21.9 Gastro-esophageal reflux disease without esophagitis; E78.1 Pure hyperglyceridemia; G43.909 Migraine, unspecified, not intractable, without status migrainosus; D64.9 Anemia, unspecified; F19.10 Other psychoactive substance abuse, uncomplicated; Z76.5 Malingerer [conscious simulation]; Z87.891 Personal history of nicotine dependence; Z88.5 Allergy status to narcotic agent; E86.0 Dehydration; G40.909 Epilepsy, unspecified, not intractable, without status epilepticus; K57.90 Diverticulosis of intestine, part unspecified, without perforation or abscess without bleeding; F31.9 Bipolar disorder, unspecified; Z88.0 Allergy status to penicillin
CPT/HCPCS: 36415; 70450; 71045; 80053; 80320; 80324; 80345; 80346; 80349; 80353; 80358; 80361; 81001; 82550; 82948; 83036; 83615; 83735; 83992; 84484; 85025; 85027; 85610; 87086; 93005; 97116; 97162; 99285; G0378; G8978; G8979; J1644; J3411; J3475; J7040

== ENCOUNTER 2017-10-03 05:54 | Emergency (ER) | payer MEDICAID ==
[2017-10-03 06:00] VITALS: BMI 23.0
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
[2017-10-03 06:58] LABS: BASO # 0.03 K/mm3 (0.0-2.0); BASO % 0.5 % (0.0-3.0); EOS # 0.2 (0.0-0.7); EOS % 3.2 % (1.5-5.0); GRAN # 2.3 (1.4-6.5); GRAN % 36.5 % (50.0-68.0); HEMOGLOBIN 12.2 g/dL (12.0-16.0); LYMPH # 3.4 (1.2-3.4); LYMPH % 53.7 % (22.0-35.0); MEAN CELL VOLUME 84.4 fl (80.0-105.0); MEAN CORPUSCULAR HEMOGLOBIN 27.5 pg (25.0-35.0); MEAN CORPUSCULAR HGB CONC 32.6 g/dl (31.0-37.0); MEAN PLATELET VOLUME 9.7 fl (7.0-11.0); MONO # 0.4 (0.1-0.6); MONO % 6.1 % (1.0-6.0); RBC 4.43 10^6/uL (3.5-6.1); RED CELL DISTRIBUTION WIDTH 18.8 % (11.5-14.5); WHITE BLOOD COUNT 6.3 10^3/ul (4.5-11.0)
[2017-10-03 07:22] LABS: URINE BILIRUBIN NEGATIVE (NEGATIVE); URINE BLOOD NEGATIVE (NEGATIVE); URINE GLUCOSE (UA) NEGATIVE (NEGATIVE); URINE LEUKOCYTE ESTERASE SMALL Leu/uL (NEGATIVE); URINE PROTEIN 100 mg/dL (<30 mg/dL); URINE UROBILINOGEN 0.2 E.U./dL (<1 E.U./dL)
--- NOTE | 2017-10-03 07:22 | ED PDOC ---
Physical Exam Vital Signs Reviewed: Yes Vital Signs Temp Pulse Resp BP Pulse Ox 10/03/17 10:00 98.6 F 72 18 126/76 98 10/03/17 08:00 70 18 121/75 98 10/03/17 06:10 97.6 F 68 17 126/85 100 Temperature: Afebrile Blood Pressure: Normal Pulse: Regular Respiratory Rate: Normal Appearance: Positive for: Well-Appearing, Non-Toxic, Uncomfortable, Other (alert /awake, coopeartive; GCS = 15, oriented x 3, NAD) Pain Distress: None Mental Status: Positive for: Alert and Oriented X 3 - Systems Exam Head: Present: Atraumatic, Normocephalic, Other (mild bi-temporal wasting) Pupils: Present: PERRL, Other (visual field intact b/l, no nystagmus, no photophobia, sclera anicteric) Extroacular Muscles: Present: EOMI Conjunctiva: Present: Normal Ears: Present: Normal Mouth: Present: Moist Mucous Membranes Pharnyx: Present: Normal Nose (External): Present: Atraumatic Nose (Internal): Present: Normal Inspection Neck: Present: Normal Range of Motion, Trachea Midline, Other (intact ROM, no midline tenderness, no nuchal rigidity, no meningeal signs). No: MIDLINE TENDERNESS Respiratory/Chest: Present: Clear to Auscultation, Good Air Exchange, Other ( CTA b/l, no w/r/r, no accessory muscle use noted, no tachypenia) Cardiovascular: Present: Regular Rate and Rhythm, Normal S1, S2. No: Murmurs Abdomen: Present: Normal Bowel Sounds, Other (well nourished female, no montiel' s sign, no mcburney's point tenderness, no masses/rebound/guarding/rigidity). No: Tenderness Back: Present: Normal Inspection. No: CVA Tenderness, Midline Tenderness Upper Extremity: Present: Normal Inspection, Normal ROM, NORMAL PULSES, Neurovascularly Intact, Capillary Refill < 2s Lower Extremity: Present: Normal Inspection, NORMAL PULSES, Normal ROM, Neurovascularly Intact, Capillary Refill < 2 s, Other (+ ambulatory) Neurological: Present: GCS=15, CN II-XII Intact, Speech Normal Skin: Present: Warm, Normal Color, Other (cap refill < 1sec, no petechiae, no ulcerations, no rashes) Psychiatric: Present: Alert, Oriented x 3, Anxious Medical Decision Making ED Course and Treatment: 10/03/17 07:21 The patient was endorsed to me by Dr. Barlow. The patient was recently admitted for similar discomfort/syncopal workup and was discharged in the last few days. The patient has a history of prior similar discomfort and questionable to secondary gains, as well as + hx of cocaine use; currently awaiting diagnostic results; pt is to be dispositioned accordingly. 10/03/17 08:18 pt states her chest pain is substernal/epigastric, non-radiating; stronger today than the rest of the times when she had chest pain; pt states she was recently kept overnight and discharge with outpt stress test due in [address] Horan pt states she has been having alot of stress lately; pt live with her mother; pt states she has been having auditory/visual hallucinations for a while but over the last few weeks the hallucinations are stronger; possibly contributing to her chest pain; pt denied suicidal/homicidal ideations pt is requesting to be admitted to the hospital pt is made aware of her medical results 10/03/17 10:30 Patient is evaluated by PES who recommends the patient can be followed up as a outpatient for anxiety/stress/depression and the patient was also made aware of continued emergency department evaluation for second troponin to be sent. The patient became upset and stated she wanted to leave the ED because she was not given her clonidine/anxiety medications. She requests to leave the emergency department at this time and states that she will never come back to this hospital again. The patient is persistent in requesting to leave against medical advice. I instructed the patient to follow up with her gerontological nurse practitioner in 2 days as scheduled. I also encouraged the patient to not smoke and dont do drugs and she responded with "I don't care." Leaving Against Medical Advice (AMA): The patient is choosing to leave against medical advice. I have personally explained to the patient that choosing to do so may result in permanent bodily harm or . I have discussed at great length that without further evaluation and monitoring there may be unforeseen circumstances and/or deterioration causing permanent bodily harm or as a result of their choice. The patient is alert, oriented, and shows the mental capacity to make clear decisions regarding the patients health care at this time. The patient continues to wish to leave against medical advice. In light of the patients decision to leave against medical advice, follow-up has been arranged and the patient is aware of the importance to following up as instructed. The patient has been advised that they should return to the emergency room immediately if they change their mind at any time, or if their condition begins to change or worsen in any way. Re-evaluation Time: 07:57 Reassessment Condition: Improving,but remains with symptoms - Lab Interpretations Lab Results: 10/03/17 06:30 10/03/17 06:30 Lab Results 10/03/17 06:44: Urine Opiates Screen Negative, Urine Methadone Screen Negative, Ur Barbiturates Screen Positive H, Ur Phencyclidine Scrn Negative, Ur Amphetamines Screen Negative, U Benzodiazepines Scrn Positive, U Oth Cocaine Metabols Negative, U Cannabinoids Screen Negative 10/03/17 06:44: Urine Color Yellow, Urine Appearance Clear, Urine pH 6.0, Ur Specific [place] >= 1.030, Urine Protein 100 H, Urine Glucose (UA) Negative, Urine Ketones Trace H, Urine Blood Negative, Urine Nitrate Negative, Urine Bilirubin Negative, Urine Urobilinogen 0.2, Ur Leukocyte Esterase Small H, Urine RBC 0 - 2, Urine WBC 5 - 10, Ur Epithelial Cells 1 - 3, Urine Bacteria Small 10/03/17 06:30: Sodium 146, Potassium 4.0, Chloride 112 H, Carbon Dioxide 22, Anion Gap 16, BUN 20, Creatinine 1.1, Est GFR ( Amer) > 60, Est GFR (Non- Af Amer) 52, Random Glucose 112 H, Calcium 9.9, Magnesium 1.7, Total Bilirubin 0.3, AST 24, ALT 51, Alkaline Phosphatase 88, Lactate Dehydrogenase 348, Total Creatine Kinase 39, Troponin I < 0.01, Total Protein 6.7, Albumin 3.9, Globulin 2.8, Albumin/Globulin Ratio 1.4 10/03/17 06:30: WBC 6.3, RBC 4.43, Hgb 12.2, Hct 37.4, MCV 84.4, MCH 27.5, MCHC 32.6, RDW 18.8 H, Plt Count 253, MPV 9.7, Gran % 36.5 L, Lymph % (Auto) 53.7 H, [place] % (Auto) 6.1 H, Eos % (Auto) 3.2, Baso % (Auto) 0.5, Gran # 2.30, Lymph # ( Auto) 3.4, [place] # (Auto) 0.4, Eos # (Auto) 0.2, Baso # (Auto) 0.03 I have reviewed the lab results: Yes Interpretation: Abnormal lab values (abnl Utox) - RAD Interpretation Narrative RAD Interpretations (Text): 10/03/17 08:22 scoliosis, NAD otherwise Radiology Orders: 10/03/17 06:17 CHEST PORTABLE [RAD] Stat Pararescue Craftsman: ED Physician - EKG Interpretation EKG Interpretation (Text): 10/03/17 08:22 NSR at 70 bpm, normal axis, no ectopy, diffuse low voltage inf leads, no st-t changes, NORMAL EKG otherwise; unchanged compare with old ekg 09/2017 Interpreted by ED Physician: Yes Type: 12 lead EKG Comparison: Similar to previous EKG - Medication Orders Current Medication Orders: Discontinued Medications Aspirin (Aspirin) 325 mg PO STAT STA Stop: 10/03/17 08:13 Last Admin: 10/03/17 08:39 Dose: 325 mg Lidocaine (Lidoderm) 1 ea TD ONCE ONE Stop: 10/03/17 08:14 Last Admin: 10/03/17 08:40 Dose: 1 ea MAR Transdermal Patch Site Document 10/03/17 08:40 SANCHO (Rec: 10/03/17 08:40 SANCHO [id number]) Transdermal Patch Site Transdermal Patch Site Left Upper Chest - Scribe Statement The provider has reviewed the documentation as recorded by the Scribe Peg Prince Provider Scribe Attestation: All medical record entries made by the Scribe were at my direction and personally dictated by me. I have reviewed the chart and agree that the record accurately reflects my personal performance of the history, physical exam, medical decision making, and the department course for this patient. I have also personally directed, reviewed, and agree with the discharge instructions and disposition. Disposition/Present on Arrival - Present on Arrival Any Indicators Present on Arrival: No History of DVT/PE: No History of Uncontrolled Diabetes: No Urinary Catheter: No History of Decub. Ulcer: No History Surgical Site Infection Following: None - Disposition Have Diagnosis and Disposition been Completed?: Yes Diagnosis: Chest pain of unknown etiology, Anxiety disorder due to general medical condition Disposition: AGAINST MEDICAL ADVICE Disposition Time: 10:22 Condition: STABLE Discharge Instructions (ExitCare): Anxiety, Adult (DC), Chest Pain (ED) Print Language: UPPER SORBIAN Additional Instructions: you are leaving against medical advice potential life-threatening illness remains and pt can lose limb/or worse case, can you are to see your doctor as soon as possible if you change your mind, you are encouraged to return to ED immediately for further care/management Make sure to see your doctor in 1-2 days make sure to go to your cardiology appointment as scheduled 2 days from now with Dr Marline IBARRA SMOKE DONT DO DRUGS Referrals: Soicos Profile Req, [Primary Care Provider] - Follow up with primary Forms: [email or web address] (Danish)
[2017-10-03 07:26] LABS: ALB/GLOB RATIO 1.4 (1.1-1.8); ALBUMIN 3.9 g/dL (3.0-4.8); ALT/SGPT 51 U/L (7-56); AST/SGOT 24 U/L (14-36); BLOOD UREA NITROGEN 20 mg/dL (7-21); CALCIUM 9.9 mg/dL (8.4-10.5); GFR AFRICAN-AMERICAN > 60; GFR NON-AFRICAN AMERICAN 52
[2017-10-03 07:27] LABS: URINE APPEARANCE CLEAR (CLEAR); URINE COLOR YELLOW (YELLOW)
[2017-10-03 07:33] LABS: TROPONIN I < 0.01 ng/mL
[2017-10-03 07:38] LABS: BARBITURATES, UR POSITIVE (NEGATIVE); BENZODIAZEPINES, UR POSITIVE (NEGATIVE); OPIATES, UR NEGATIVE (NEGATIVE); PHENCYCLIDINE, UR NEGATIVE (NEGATIVE)
[2017-10-03 07:43] LABS: URINE BACTERIA SMALL (NEG); URINE RBC 0 - 2 /hpf (0-2)
[2017-10-03] MEDS ORDERED: Lidocaine 5% Patch TD ONE (08:13)
--- NOTE | 2017-10-03 08:29 | RAD ---
HISTORY: Chest pain COMPARISON: Comparison is made with 09/29/2017 FINDINGS: LUNGS: No active pulmonary disease. PLEURA: No significant pleural effusion identified, no pneumothorax apparent. CARDIOVASCULAR: Normal. OSSEOUS STRUCTURES: Moderate dextroscoliosis at the thoracic spine noted. VISUALIZED UPPER ABDOMEN: Normal. OTHER FINDINGS: None. IMPRESSION: No active disease. Dextroscoliosis.
[2017-10-03 10:18] VITALS: RESP 18; O2SAT 98
[2017-10-03 10:19] VITALS: BP 126/76; PULSE 72; TEMP 98.6
--- NOTE | 2017-10-03 11:03 | CARD ---
APPROVED REPORT EKG Measurement Heart [id number] <Conclusion> Normal sinus rhythm Normal ECG
== END 2017-10-03 10:22 | disposition left against medical advice (07) ==
LOC: ED 05:54
DX: R07.9 Chest pain, unspecified (principal); F06.4 Anxiety disorder due to known physiological condition

== ENCOUNTER 2017-10-20 19:36 | Emergency (ER) | payer MEDICAID ==
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
[2017-10-20 20:57] VITALS: BMI 21.2
[2017-10-20 20:58] VITALS: BP 130/59; PULSE 99; RESP 18; TEMP 98.2; O2SAT 98
[2017-10-20 21:09] LABS: URINE BILIRUBIN NEGATIVE (NEGATIVE); URINE BLOOD TRACE-INTACT (NEGATIVE); URINE GLUCOSE (UA) NEGATIVE (NEGATIVE); URINE LEUKOCYTE ESTERASE NEGATIVE Leu/uL (NEGATIVE); URINE PROTEIN NEGATIVE mg/dL (<30 mg/dL); URINE UROBILINOGEN 0.2 E.U./dL (<1 E.U./dL)
[2017-10-20 21:10] LABS: BASO # 0.02 K/mm3 (0.0-2.0); BASO % 0.2 % (0.0-3.0); EOS # 0.1 (0.0-0.7); EOS % 0.8 % (1.5-5.0); GRAN # 7.36 (1.4-6.5); GRAN % 79.5 % (50.0-68.0); HEMOGLOBIN 11.3 g/dL (12.0-16.0); LYMPH # 1.5 (1.2-3.4); LYMPH % 15.8 % (22.0-35.0); MEAN CELL VOLUME 86.1 fl (80.0-105.0); MEAN CORPUSCULAR HGB CONC 32.5 g/dl (31.0-37.0); MEAN PLATELET VOLUME 10.3 fl (7.0-11.0); MONO # 0.3 (0.1-0.6); MONO % 3.7 % (1.0-6.0); RBC 4.04 10^6/uL (3.5-6.1); RED CELL DISTRIBUTION WIDTH 17.8 % (11.5-14.5); WHITE BLOOD COUNT 9.3 10^3/ul (4.5-11.0)
[2017-10-20 21:11] LABS: URINE APPEARANCE CLEAR (CLEAR); URINE COLOR YELLOW (YELLOW)
[2017-10-20 21:12] LABS: ACETAMINOPHEN < 10.0 ug/ml (10.0-20.0); SALICYLATE 12 mg/dL (2.0-20.0)
[2017-10-20 21:19] LABS: HCG,QUALITATIVE URINE NEGATIVE (NEGATIVE); URINE BACTERIA MANY (NEG)
[2017-10-20 21:25] LABS: ALB/GLOB RATIO 1.3 (1.1-1.8); ALBUMIN 3.7 g/dL (3.0-4.8); ALT/SGPT 38 U/L (7-56); AST/SGOT 28 U/L (14-36); BARBITURATES, UR POSITIVE (NEGATIVE); BENZODIAZEPINES, UR NEGATIVE (NEGATIVE); BLOOD UREA NITROGEN 19 mg/dL (7-21); CALCIUM 9.4 mg/dL (8.4-10.5); GFR AFRICAN-AMERICAN > 60; GFR NON-AFRICAN AMERICAN > 60; OPIATES, UR NEGATIVE (NEGATIVE); PHENCYCLIDINE, UR NEGATIVE (NEGATIVE)
[2017-10-20 23:31] LABS: TROPONIN I < 0.01 ng/mL
--- NOTE | 2017-10-21 00:05 | CT ---
EXAM: CT Head Without Intravenous Contrast EXAM DATE/TIME: 10/20/2017 9:57 PM CLINICAL HISTORY: The patient age is 52 years old and is female; Injury or trauma; Fall; Initial encounter; Blunt trauma (contusions or hematomas) Facility exam id and description: Ct heads head w/o contrast TECHNIQUE: Axial computed tomography images of the head/brain without intravenous contrast. All CT scans at this facility use one or more dose reduction techniques, viz.: automated exposure control; ma/kV adjustment per patient size (including targeted exams where dose is matched to indication; i.e. head); or iterative reconstruction technique. Coronal and sagittal reformatted images were created and reviewed. COMPARISON: CT - HEAD W/O CONTRAST 2017-09-29 04:03 FINDINGS: Brain: There are foci of hypodensity again visualized within the bilateral parietal-occipital subcortical white matter. Although nonspecific as to etiology, this is suggestive of small vessel ischemic disease. Demyelination is within the differential. On the left side, this can be visualized on series 4 image 39. There is stable volume loss/atrophy of the frontal lobes. The acuity of the white matter disease is indeterminate. The white-riley differentiation is preserved demonstrating no acute territorial type infarct. No acute intracranial hemorrhage is seen. Midline shift: There is no midline shift. Ventricles: No ventriculomegaly. Bones/joints: The calvarium demonstrates no evidence for a depressed fracture. Soft tissues: There is soft tissue swelling/hematoma of the right posterior scalp. Vasculature: There is mild atherosclerotic calcification of the intracranial internal carotid arteries and distal right vertebral artery. Sinuses: Unremarkable as visualized. No acute sinusitis. Mastoid air cells: No mastoid effusion. IMPRESSION: 1. There is soft tissue swelling/hematoma of the right posterior scalp. 2. No acute intracranial hemorrhage or acute territorial type infarct. 3. There are foci of hypodensity again visualized within the bilateral parietal-occipital subcortical white matter. Although nonspecific as to etiology, this is suggestive of small vessel ischemic disease. Demyelination is within the differential. 4. There is stable volume loss/atrophy of the frontal lobes.
--- NOTE | 2017-10-21 09:46 | CARD ---
APPROVED REPORT EKG Measurement Heart [id number] <Conclusion> Normal sinus rhythm Normal ECG
== END 2017-10-21 00:50 | disposition home or self-care (01) ==
LOC: ED 19:36
DX: F32.9 Major depressive disorder, single episode, unspecified (principal); S09.90XA Unspecified injury of head, initial encounter; X58.XXXA Exposure to other specified factors, initial encounter; Y92.9 Unspecified place or not applicable; I10 Essential (primary) hypertension; E11.9 Type 2 diabetes mellitus without complications; Z87.891 Personal history of nicotine dependence

== ENCOUNTER 2017-11-02 03:57 | Emergency (ER) | payer MEDICAID ==
[2017-11-02 03:58] VITALS: BMI 21.2
[2017-11-02] MEDS ORDERED: Sodium Chloride 0.9% 1,000 ML IV STA (04:10)
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
[2017-11-02 05:53] LABS: BASO # 0.02 K/mm3 (0.0-2.0); BASO % 0.4 % (0.0-3.0); EOS # 0.1 (0.0-0.7); EOS % 1.5 % (1.5-5.0); GRAN # 2.53 (1.4-6.5); GRAN % 53.7 % (50.0-68.0); HEMOGLOBIN 10.8 g/dL (12.0-16.0); LYMPH # 1.9 (1.2-3.4); LYMPH % 39.3 % (22.0-35.0); MEAN CELL VOLUME 84.8 fl (80.0-105.0); MEAN CORPUSCULAR HEMOGLOBIN 27.8 pg (25.0-35.0); MEAN CORPUSCULAR HGB CONC 32.8 g/dl (31.0-37.0); MEAN PLATELET VOLUME 9.2 fl (7.0-11.0); MONO # 0.2 (0.1-0.6); MONO % 5.1 % (1.0-6.0); RBC 3.88 10^6/uL (3.5-6.1); RED CELL DISTRIBUTION WIDTH 15.4 % (11.5-14.5); WHITE BLOOD COUNT 4.7 10^3/ul (4.5-11.0)
[2017-11-02 05:58] LABS: PH,URINE 5.5 (4.7-8.0); URINE BILIRUBIN NEGATIVE (NEGATIVE); URINE BLOOD NEGATIVE (NEGATIVE); URINE GLUCOSE (UA) NEGATIVE (NEGATIVE); URINE LEUKOCYTE ESTERASE NEGATIVE Leu/uL (NEGATIVE); URINE PROTEIN NEGATIVE mg/dL (<30 mg/dL); URINE UROBILINOGEN 0.2 E.U./dL (<1 E.U./dL)
[2017-11-02 05:59] LABS: URINE APPEARANCE CLEAR (CLEAR); URINE COLOR YELLOW (YELLOW)
[2017-11-02 06:10] LABS: INR 1.03 (0.93-1.08); PROTHROMBIN TIME 11.9 SECONDS (9.4-12.5)
[2017-11-02 06:24] LABS: TROPONIN I < 0.01 ng/mL
[2017-11-02 06:49] LABS: ALB/GLOB RATIO 1.5 (1.1-1.8); ALBUMIN 3.9 g/dL (3.0-4.8); ALT/SGPT 47 U/L (7-56); AST/SGOT 24 U/L (14-36); BLOOD UREA NITROGEN 27 mg/dL (7-21); GFR AFRICAN-AMERICAN > 60; GFR NON-AFRICAN AMERICAN 58
[2017-11-02 06:50] LABS: BARBITURATES, UR POSITIVE (NEGATIVE); BENZODIAZEPINES, UR NEGATIVE (NEGATIVE); OPIATES, UR NEGATIVE (NEGATIVE); PHENCYCLIDINE, UR NEGATIVE (NEGATIVE)
[2017-11-02 06:51] VITALS: RESP 18; TEMP 98.2; O2SAT 99
[2017-11-02 06:52] VITALS: BP 100/56; PULSE 76
[2017-11-02] MEDS ORDERED: Iohexol 350 MG/100 ML VIAL ONE (07:45)
--- NOTE | 2017-11-02 08:20 | ED PDOC ---
Physical Exam Vital Signs Temp Pulse Resp BP Pulse Ox 11/02/17 05:58 76 18 100/56 L 99 11/02/17 03:58 98.2 F 78 18 104/68 99 Medical Decision Making ED Course and Treatment: 11/02/17 07:19 Patient endorsed to me by Dr. Jerome. 11/02/2017 08:16 upon reassesemtn, pt asks to see another provider. i advised there is no other provider in the emergency room i advised we are evaluating for pe. Patient declines further evaluation in the ER. Patient advised not to leave, and have not excluded possible blood clot in chest. Patient signs out ama. Leaving Against Medical Advice (AMA): The patient is choosing to leave against medical advice. I have personally explained to the patient that choosing to do so may result in permanent bodily harm or . I have discussed at great length that without further evaluation and monitoring there may be unforeseen circumstances and/or deterioration causing permanent bodily harm or as a result of their choice. The patient is alert, oriented, and shows the mental capacity to make clear decisions regarding the patients health care at this time. The patient continues to wish to leave against medical advice. In light of the patients decision to leave against medical advice, follow-up has been arranged and the patient is aware of the importance to following up as instructed. The patient has been advised that they should return to the emergency room immediately if they change their mind at any time, or if their condition begins to change or worsen in any way. 11/02/17 16:11 - Lab Interpretations Lab Results: 11/02/17 05:30 11/02/17 05:30 Lab Results 11/02/17 05:30: Alcohol, Quantitative < 10 11/02/17 05:30: Urine Opiates Screen Negative, Urine Methadone Screen Negative, Ur Barbiturates Screen Positive H, Ur Phencyclidine Scrn Negative, Ur Amphetamines Screen Negative, U Benzodiazepines Scrn Negative, U Oth Cocaine Metabols Negative, U Cannabinoids Screen Negative 11/02/17 05:30: Sodium 146, Potassium 4.1, Chloride 109 H, Carbon Dioxide 24, Anion Gap 17, BUN 27 H, Creatinine 1.0, Est GFR ( Amer) > 60, Est GFR ( Non-Af Amer) 58, Random Glucose 106, Calcium 9.0, Total Bilirubin 0.2, AST 24, ALT 47, Alkaline Phosphatase 118, Lactate Dehydrogenase 332 L, Total Creatine Kinase 34 L, Troponin I < 0.01, Total Protein 6.6, Albumin 3.9, Globulin 2.7, Albumin/Globulin Ratio 1.5 11/02/17 05:30: Urine Color Yellow, Urine Appearance Clear, Urine pH 5.5, Ur Specific [place] 1.025, Urine Protein Negative, Urine Glucose (UA) Negative, Urine Ketones Trace H, Urine Blood Negative, Urine Nitrate Negative, Urine Bilirubin Negative, Urine Urobilinogen 0.2, Ur Leukocyte Esterase Negative 11/02/17 05:30: PT 11.9, INR 1.03, D-Dimer, Quantitative 268 H 11/02/17 05:30: WBC 4.7 D, RBC 3.88, Hgb 10.8 L, Hct 32.9 L, MCV 84.8, MCH 27.8 , MCHC 32.8, RDW 15.4 H, Plt Count 183, MPV 9.2, Gran % 53.7, Lymph % (Auto) 39.3 H, [place] % (Auto) 5.1, Eos % (Auto) 1.5, Baso % (Auto) 0.4, Gran # 2.53, Lymph # (Auto) 1.9, [place] # (Auto) 0.2, Eos # (Auto) 0.1, Baso # (Auto) 0.02 - RAD Interpretation Radiology Orders: 11/02/17 04:10 CHEST PORTABLE [RAD] Stat - Medication Orders Current Medication Orders: Discontinued Medications Sodium Chloride (Sodium Chloride 0.9%) 1,000 mls @ 999 mls/hr IV .Q1H1M STA Stop: 11/02/17 05:10 Last Admin: 11/02/17 05:40 Dose: 999 mls/hr eMAR Start Stop Document 11/02/17 05:40 MARCEL (Rec: 11/02/17 05:41 MARCEL [id number]) Intravenous Solution Start Date 11/02/17 Start Time 05:40 End Date 11/02/17 End time 06:40 Total Infusion Time 60 - Scribe Statement The provider has reviewed the documentation as recorded by the Jose Antonio Kaba Provider Scribe Attestation: All medical record entries made by the Virgieibcal were at my direction and personally dictated by me. I have reviewed the chart and agree that the record accurately reflects my personal performance of the history, physical exam, medical decision making, and the department course for this patient. I have also personally directed, reviewed, and agree with the discharge instructions and disposition. Disposition/Present on Arrival - Present on Arrival Any Indicators Present on Arrival: No History of DVT/PE: No History of Uncontrolled Diabetes: No Urinary Catheter: No History of Decub. Ulcer: No History Surgical Site Infection Following: None - Disposition Have Diagnosis and Disposition been Completed?: Yes Diagnosis: Syncope, Elevated d-dimer, Left against medical advice Disposition: AGAINST MEDICAL ADVICE Disposition Time: 09:00 Condition: UNKNOWN Discharge Instructions (ExitCare): Syncope (ED) Additional Instructions: return to er with worsening symptoms or concerns. Referrals: Eleazar Buckner JD, MD [Primary Care Provider] - Follow up with primary Forms: appssavvy (Nigerian)
--- NOTE | 2017-11-02 08:36 | RAD ---
HISTORY: Syncope COMPARISON: 10/03/2017 FINDINGS: LUNGS: The lungs are well inflated and clear. PLEURA: No significant pleural effusion identified, no pneumothorax apparent. CARDIOVASCULAR: Normal. OSSEOUS STRUCTURES: There is severe dextroscoliosis in the thoracic spine. VISUALIZED UPPER ABDOMEN: Normal. OTHER FINDINGS: None. IMPRESSION: No active pulmonary disease.
--- NOTE | 2017-11-02 21:33 | CARD ---
APPROVED REPORT EKG Measurement Heart [id number] <Conclusion> Normal sinus rhythm Normal ECG
== END 2017-11-02 08:15 | disposition left against medical advice (07) ==
LOC: ED 03:57
DX: R55 Syncope and collapse (principal); R79.89 Other specified abnormal findings of blood chemistry; E11.9 Type 2 diabetes mellitus without complications; I10 Essential (primary) hypertension
CPT/HCPCS: 71045; 80053; 80320; 80324; 80345; 80346; 80349; 80353; 80358; 80361; 81003; 82550; 83615; 83992; 84484; 85025; 85378; 85610; 93005; 96360; 99285; J7040

== ENCOUNTER 2017-11-03 19:07 | Observation (INO) | payer MEDICAID ==
[2017-11-03 19:08] VITALS: BMI 21.2
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
[2017-11-03 20:48] LABS: HEMOGLOBIN 10.1 g/dL (12.0-16.0); MEAN CELL VOLUME 85.2 fl (80.0-105.0); MEAN CORPUSCULAR HEMOGLOBIN 28.3 pg (25.0-35.0); MEAN CORPUSCULAR HGB CONC 33.2 g/dl (31.0-37.0); MEAN PLATELET VOLUME 9.6 fl (7.0-11.0); RBC 3.57 10^6/uL (3.5-6.1); RED CELL DISTRIBUTION WIDTH 16.4 % (11.5-14.5); WHITE BLOOD COUNT 4.8 10^3/ul (4.5-11.0)
[2017-11-03 21:06] LABS: PARTIAL THROMBOPLASTIN TIME 24.4 Seconds (25.1-36.5); PROTHROMBIN TIME 11.4 SECONDS (9.4-12.5)
[2017-11-03 21:20] LABS: TROPONIN I < 0.01 ng/mL
[2017-11-03 21:30] LABS: ALB/GLOB RATIO 1.3 (1.1-1.8); ALBUMIN 3.6 g/dL (3.0-4.8); ALT/SGPT 46 U/L (7-56); AST/SGOT 21 U/L (14-36); BLOOD UREA NITROGEN 15 mg/dL (7-21); CALCIUM 8.6 mg/dL (8.4-10.5); GFR AFRICAN-AMERICAN > 60; GFR NON-AFRICAN AMERICAN > 60
--- NOTE | 2017-11-03 22:30 | CT ---
EXAM: CT Head Without Intravenous Contrast EXAM DATE/TIME: 11/03/2017 7:54 PM CLINICAL HISTORY: 52 years old, female; Signs and symptoms; Dizziness; Additional info: Injury TECHNIQUE: Axial computed tomography images of the head/brain without intravenous contrast. All CT scans at this facility use one or more dose reduction techniques, viz.: automated exposure control; ma/kV adjustment per patient size (including targeted exams where dose is matched to indication; i.e. head); or iterative reconstruction technique. Coronal and sagittal reformatted images were created and reviewed. COMPARISON: CT - HEAD W/O CONTRAST 2017-10-20 23:12 FINDINGS: Again seen is bilateral frontal atrophy. Again seen are small areas of low attenuation in the parietal occipital subcortical white matter for which differential diagnosis would include small vessel ischemic disease and demyelination as discussed in prior report. No intracranial hemorrhage. No intracranial edema. No fluid in the sinuses or mastoid air cells. No depressed fractures. IMPRESSION: No acute intracranial injury.
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
[2017-11-04] MEDS ORDERED: Apap-Butalbital-Caffeine 325-50-40mg Tab PO PRN (00:42)
[2017-11-04] MEDS ORDERED: POLYETHYLENE GLYCOL 3350 17 GM/Dose PACKET PO PRN (00:42)
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
[2017-11-04] MEDS: Oxycodone/Acetaminophen 5/325 mg Tab PO PRN ×3 (01:19→16:30)
[2017-11-04] MEDS: Sodium Chloride 0.9% 1,000 ML IV SCH ×2 (01:20→13:05)
[2017-11-04 02:03] LABS: PH,URINE 5.5 (4.7-8.0); URINE BILIRUBIN NEGATIVE (NEGATIVE); URINE BLOOD NEGATIVE (NEGATIVE); URINE GLUCOSE (UA) NEGATIVE (NEGATIVE); URINE LEUKOCYTE ESTERASE TRACE Leu/uL (NEGATIVE); URINE PROTEIN NEGATIVE mg/dL (<30 mg/dL); URINE UROBILINOGEN 0.2 E.U./dL (<1 E.U./dL)
[2017-11-04 02:04] LABS: URINE COLOR YELLOW (YELLOW)
[2017-11-04 02:05] LABS: URINE APPEARANCE CLEAR (CLEAR)
[2017-11-04 02:34] LABS: URINE BACTERIA RARE (NEG); URINE EPITHELIAL CELLS 0 - 2 /hpf (0-5); URINE RBC 0 - 2 /hpf (0-2)
[2017-11-04 02:47] LABS: BENZODIAZEPINES, UR NEGATIVE (NEGATIVE)
[2017-11-04 03:01] LABS: BARBITURATES, UR POSITIVE (NEGATIVE); OPIATES, UR NEGATIVE (NEGATIVE); PHENCYCLIDINE, UR NEGATIVE (NEGATIVE)
[2017-11-04] MEDS ORDERED: Pantoprazole 40 mg EC Tab PO SCH (06:00)
[2017-11-04 06:06] VITALS: RESP 18
--- NOTE | 2017-11-04 08:36 | RAD ---
HISTORY: medical clearance COMPARISON: 11/02/2017. FINDINGS: LUNGS: The lungs are well inflated and clear. PLEURA: No significant pleural effusion identified, no pneumothorax apparent. CARDIOVASCULAR: Normal. OSSEOUS STRUCTURES: No significant abnormalities. VISUALIZED UPPER ABDOMEN: Normal. OTHER FINDINGS: There are multiple surgical clips in the epigastrium. IMPRESSION: No active pulmonary disease.
--- NOTE | 2017-11-04 09:44 | RAD ---
PROCEDURE: Radiographs of the left elbow. HISTORY: Injury COMPARISON: No prior. FINDINGS: BONES: Bone alignment and mineralization are normal. There is no acute displaced fracture or bone destruction JOINTS: Normal. SOFT TISSUES: Normal. JOINT EFFUSION: None. OTHER FINDINGS: None IMPRESSION: No acute fracture or dislocation.
[2017-11-04 11:39] VITALS: O2SAT 97
[2017-11-04 11:58] VITALS: BP 116/71; PULSE 85; TEMP 98.8
--- NOTE | 2017-11-04 14:40 | CARD ---
APPROVED REPORT EKG Measurement Heart [id number] <Conclusion> Sinus tachycardia Otherwise normal ECG
--- NOTE | 2017-11-04 15:12 | CP.PCM.DIS ---
<Wayne Hardy - Last Filed: 11/04/17 15:06> Provider - Provider Date of Admission: 11/03/17 22:39 Attending physician: Vikram Oh MD Primary care physician: Eleazar Buckner JD, MD Consults: Psychiatry: Dr. Guerra Time Spent in preparation of Discharge (in minutes): 35 Diagnosis - Discharge Diagnosis (1) Fall Status: Acute (2) Abdominal pain Status: Acute Priority: Medium (3) Alcohol abuse Status: Chronic Priority: Low (4) Chronic pain Status: Chronic (5) Anxiety Status: Chronic Priority: Low Hospital Course - Lab Results Lab Results: Most Recent Lab Values WBC 4.8 10^3/ul (4.5-11.0) 11/03/17 20:30 RBC 3.57 10^6/uL (3.5-6.1) 11/03/17 20:30 Hgb 10.1 g/dL (12.0-16.0) L 11/03/17 20:30 Hct 30.4 % (36.0-48.0) L 11/03/17 20:30 MCV 85.2 fl (80.0-105.0) 11/03/17 20:30 MCH 28.3 pg (25.0-35.0) 11/03/17 20:30 MCHC 33.2 g/dl (31.0-37.0) 11/03/17 20:30 RDW 16.4 % (11.5-14.5) H 11/03/17 20:30 Plt Count 180 10^3/uL (120.0-450.0) 11/03/17 20:30 MPV 9.6 fl (7.0-11.0) 11/03/17 20:30 PT 11.4 SECONDS (9.4-12.5) 11/03/17 20:30 INR 1.00 (0.93-1.08) 11/03/17 20:30 APTT 24.4 Seconds (25.1-36.5) L 11/03/17 20:30 Sodium 148 mmol/L (132-148) 11/03/17 20:30 Potassium 3.7 mmol/L (3.6-5.0) 11/03/17 20:30 Chloride 116 mmol/L (98-107) H 11/03/17 20:30 Carbon Dioxide 20 mmol/L (21-33) L 11/03/17 20:30 Anion Gap 17 (10-20) 11/03/17 20:30 BUN 15 mg/dL (7-21) 11/03/17 20:30 Creatinine 0.9 mg/dl (0.7-1.2) 11/03/17 20:30 Est GFR ( Amer) > 60 11/03/17 20:30 Est GFR (Non-Af Amer) > 60 11/03/17 20:30 Random Glucose 108 mg/dL (70-110) 11/03/17 20:30 Calcium 8.6 mg/dL (8.4-10.5) 11/03/17 20:30 Total Bilirubin 0.2 mg/dL (0.2-1.3) 11/03/17 20:30 AST 21 U/L (14-36) 11/03/17 20:30 ALT 46 U/L (7-56) 11/03/17 20:30 Alkaline Phosphatase 103 U/L (38-126) 11/03/17 20:30 Lactate Dehydrogenase 488 U/L (333-699) 11/03/17 20:30 Total Creatine Kinase 104 U/L (35-230) 11/04/17 01:10 Troponin I < 0.01 ng/mL 11/03/17 20:30 Total Protein 6.2 g/dL (5.8-8.3) 11/03/17 20:30 Albumin 3.6 g/dL (3.0-4.8) 11/03/17 20:30 Globulin 2.7 gm/dL 11/03/17 20:30 Albumin/Globulin Ratio 1.3 (1.1-1.8) 11/03/17 20:30 Urine Color Yellow (YELLOW) 11/04/17 01:00 Urine Appearance Clear (CLEAR) 11/04/17 01:00 Urine pH 5.5 (4.7-8.0) 11/04/17 01:00 Ur Specific [place] 1.020 (1.005-1.035) 11/04/17 01:00 Urine Protein Negative mg/dL (<30 mg/dL) 11/04/17 01:00 Urine Glucose (UA) Negative mg/dL (NEGATIVE) 11/04/17 01:00 Urine Ketones Negative mg/dL (NEGATIVE) 11/04/17 01:00 Urine Blood Negative (NEGATIVE) 11/04/17 01:00 Urine Nitrate Negative (NEGATIVE) 11/04/17 01:00 Urine Bilirubin Negative (NEGATIVE) 11/04/17 01:00 Urine Urobilinogen 0.2 E.U./dL (<1 E.U./dL) 11/04/17 01:00 Ur Leukocyte Esterase Trace William/uL (NEGATIVE) H 11/04/17 01:00 Urine RBC 0 - 2 /hpf (0-2) 11/04/17 01:00 Urine WBC 1 - 3 /hpf (0-6) 11/04/17 01:00 Ur Epithelial Cells 0 - 2 /hpf (0-5) 11/04/17 01:00 Urine Bacteria Rare (NEG) 11/04/17 01:00 Urine Opiates Screen Negative (NEGATIVE) 11/04/17 01:00 Urine Methadone Screen Negative (NEGATIVE) 11/04/17 01:00 Ur Barbiturates Screen Positive (NEGATIVE) H 11/04/17 01:00 Ur Phencyclidine Scrn Negative (NEGATIVE) 11/04/17 01:00 Ur Amphetamines Screen Negative (NEGATIVE) 11/04/17 01:00 U Benzodiazepines Scrn Negative (NEGATIVE) 11/04/17 01:00 U Oth Cocaine Metabols Negative (NEGATIVE) 11/04/17 01:00 U Cannabinoids Screen Negative (NEGATIVE) 11/04/17 01:00 Alcohol, Quantitative < 10 mg/dL (0-10) 11/04/17 01:10 - Hospital Course Hospital Course: 52 year old female, with PMH recurrent syncope, substance abuse, depression, extensive psych history, DM, HTN, presents s/p mechanical fall. Patient reportedly fell while arising from toilet and with navigation of tight quarters inside a bathroom. Patient reportedly fell on head and left side. In the ED patient was evaluated with Head CT which showed no acute findings, maxillo/ facial CT showing no acute fractures and left upper x-ray showing no signs of fracture. Patient was evaluated by PT and found to be stable for discharge with outpatient follow up. Patient was evaluated by psychiatry and found to be stable for discharge with outpatient follow up. Discharge instructions, medication reconciliation, and further instructions regarding alcohol and substance abuse cessation were provided. Patient was in understanding and agreeable. - Date & Time of H&P Date of H&P: 11/04/17 Time of H&P: 00:38 Discharge Exam - Head Exam Head Exam: NORMOCEPHALIC Additional comments: acute bruising appreciated above left eye, no laceration or active bleeding appreciated - Eye Exam Eye Exam: EOMI, PERRL - Neck Exam Neck exam: Full Rom - Respiratory Exam Respiratory Exam: Clear to PA & Lateral, NORMAL BREATHING PATTERN. absent: Rales, Rhonchi, Wheezes - Cardiovascular Exam Cardiovascular Exam: REGULAR RHYTHM, +S1, +S2 - GI/Abdominal Exam GI & Abdominal Exam: Normal Bowel Sounds. absent: Guarding, Rigid, Tenderness ( mid to left sided abdomen, chronic pain 2/2 previous surgery ) - Neurological Exam Neurological exam: Alert, Normal Gait, Oriented x3 Additional comments: motor and sensory grossly intact Strength 5/5 in all four extremities - Psychiatric Exam Psychiatric exam: Normal Affect, Normal Mood - Skin Skin Exam: Dry, Warm Discharge Plan - Follow Up Plan Condition: STABLE Disposition: HOME/ ROUTINE Instructions: Syncope (Fainting), Depression Additional Instructions: Discharge instructions: Follow up with primary care physician within one week of discharge. Take medications as prescribed. If symptoms occur again, go to the nearest emergency room. Referrals: Eleazar Buckner JD, MD [Primary Care Provider] - <Vikram Oh - Last Filed: 11/05/17 16:39> Provider - Provider Date of Admission: 11/03/17 22:39 Attending physician: Vikram Oh MD Primary care physician: Eleazar Buckner JD, MD Hospital Course - Lab Results Lab Results: Most Recent Lab Values WBC 4.8 10^3/ul (4.5-11.0) 11/03/17 20:30 RBC 3.57 10^6/uL (3.5-6.1) 11/03/17 20:30 Hgb 10.1 g/dL (12.0-16.0) L 11/03/17 20:30 Hct 30.4 % (36.0-48.0) L 11/03/17 20:30 MCV 85.2 fl (80.0-105.0) 11/03/17 20:30 MCH 28.3 pg (25.0-35.0) 11/03/17 20:30 MCHC 33.2 g/dl (31.0-37.0) 11/03/17 20:30 RDW 16.4 % (11.5-14.5) H 11/03/17 20:30 Plt Count 180 10^3/uL (120.0-450.0) 11/03/17 20:30 MPV 9.6 fl (7.0-11.0) 11/03/17 20:30 PT 11.4 SECONDS (9.4-12.5) 11/03/17 20:30 INR 1.00 (0.93-1.08) 11/03/17 20:30 APTT 24.4 Seconds (25.1-36.5) L 11/03/17 20:30 Sodium 148 mmol/L (132-148) 11/03/17 20:30 Potassium 3.7 mmol/L (3.6-5.0) 11/03/17 20:30 Chloride 116 mmol/L (98-107) H 11/03/17 20:30 Carbon Dioxide 20 mmol/L (21-33) L 11/03/17 20:30 Anion Gap 17 (10-20) 11/03/17 20:30 BUN 15 mg/dL (7-21) 11/03/17 20:30 Creatinine 0.9 mg/dl (0.7-1.2) 11/03/17 20:30 Est GFR ( Amer) > 60 11/03/17 20:30 Est GFR (Non-Af Amer) > 60 11/03/17 20:30 Random Glucose 108 mg/dL (70-110) 11/03/17 20:30 Calcium 8.6 mg/dL (8.4-10.5) 11/03/17 20:30 Total Bilirubin 0.2 mg/dL (0.2-1.3) 11/03/17 20:30 AST 21 U/L (14-36) 11/03/17 20:30 ALT 46 U/L (7-56) 11/03/17 20:30 Alkaline Phosphatase 103 U/L (38-126) 11/03/17 20:30 Lactate Dehydrogenase 488 U/L (333-699) 11/03/17 20:30 Total Creatine Kinase 104 U/L (35-230) 11/04/17 01:10 Troponin I < 0.01 ng/mL 11/03/17 20:30 Total Protein 6.2 g/dL (5.8-8.3) 11/03/17 20:30 Albumin 3.6 g/dL (3.0-4.8) 11/03/17 20:30 Globulin 2.7 gm/dL 11/03/17 20:30 Albumin/Globulin Ratio 1.3 (1.1-1.8) 11/03/17 20:30 Urine Color Yellow (YELLOW) 11/04/17 01:00 Urine Appearance Clear (CLEAR) 11/04/17 01:00 Urine pH 5.5 (4.7-8.0) 11/04/17 01:00 Ur Specific [place] 1.020 (1.005-1.035) 11/04/17 01:00 Urine Protein Negative mg/dL (<30 mg/dL) 11/04/17 01:00 Urine Glucose (UA) Negative mg/dL (NEGATIVE) 11/04/17 01:00 Urine Ketones Negative mg/dL (NEGATIVE) 11/04/17 01:00 Urine Blood Negative (NEGATIVE) 11/04/17 01:00 Urine Nitrate Negative (NEGATIVE) 11/04/17 01:00 Urine Bilirubin Negative (NEGATIVE) 11/04/17 01:00 Urine Urobilinogen 0.2 E.U./dL (<1 E.U./dL) 11/04/17 01:00 Ur Leukocyte Esterase Trace William/uL (NEGATIVE) H 11/04/17 01:00 Urine RBC 0 - 2 /hpf (0-2) 11/04/17 01:00 Urine WBC 1 - 3 /hpf (0-6) 11/04/17 01:00 Ur Epithelial Cells 0 - 2 /hpf (0-5) 11/04/17 01:00 Urine Bacteria Rare (NEG) 11/04/17 01:00 Urine Opiates Screen Negative (NEGATIVE) 11/04/17 01:00 Urine Methadone Screen Negative (NEGATIVE) 11/04/17 01:00 Ur Barbiturates Screen Positive (NEGATIVE) H 11/04/17 01:00 Ur Phencyclidine Scrn Negative (NEGATIVE) 11/04/17 01:00 Ur Amphetamines Screen Negative (NEGATIVE) 11/04/17 01:00 U Benzodiazepines Scrn Negative (NEGATIVE) 11/04/17 01:00 U Oth Cocaine Metabols Negative (NEGATIVE) 11/04/17 01:00 U Cannabinoids Screen Negative (NEGATIVE) 11/04/17 01:00 Alcohol, Quantitative < 10 mg/dL (0-10) 11/04/17 01:10 Attending/Attestation - Attestation I have personally seen and examined this patient.: Yes I have fully participated in the care of the patient.: Yes I have reviewed all pertinent clinical information, including history, physical exam and plan: Yes Notes (Text): 11/05/17 16:37 Medical record note made by the resident after discussion with my direction and input after the patient was personally seen and examined by me. I have reviewed the chart and agree that the record accurately reflects by personal performance of the history, physical exam, data review, and medical decision-making, in the course for the patient. I have also personally directed the plan of care. 52 year old female with PMH of of gastroparesis, HTN, hypertriglyceridemia, seizure disorders on keppra, GERD, migraines, polysubstance abuse, was admitted after mechanical fall with negative work up at [facility], patient work up here in the hospital is also negative for any fracture.She was evaluated by physical therapy and felt safe to be discharged home.She will be discharged home and will follow up with her PCP. Management plan was discussed in detail with patient. Education was provided.
--- NOTE | 2017-11-05 00:58 | CON ---
DATE: HISTORY OF PRESENT ILLNESS: In short, the patient is 52-year-old female. The patient has multiple medical issues including hypertension and questionable seizure disorder. The patient also has addiction to pain medication, benzodiazepines. The patient has multiple admissions to the Psychiatric Inpatient Unit. The patient has antisocial personality disorder. The patient has tendency of using drugs even in Psychiatric Inpatient Unit. The patient was crushing the psychotropic medications and trying to sneeze into her nostrils. The patient has history of providing inconsistent stories as well as malingering. The patient was admitted to the medical floor status post questionable fall. The patient reported symptoms of depression and that is why this keno writer got involved into the patient's care. The patient is very familiar to this keno writer from the multiple admissions to the Psychiatric Inpatient Unit. The patient has chronic noncompliance with the medications and followup appointments. The patient has impression that she needs to be on uncertain medications including benzodiazepines and pain killers at the same time. The patient is not consistent with her compliance with her psychotropic medications. The patient presented well. The patient said that on Wednesday, she went to [facility] where she fell. The patient said that she was not held even overnight. The patient said that x-ray was not done for her left upper extremity. The patient said "all they did, it was CT scan, which was negative." The patient also reported that she was discharged right after CT scan of the head. The patient said that she was not feeling well and she had some pain on her left side of the body and she asked her brother to bring her to [facility] where she was admitted on the medical side. The patient reported that she was not seen by psychiatrist and she has followup appointment scheduled on 11/19/[address] Velazco. The patient reported that she fills her medication at [facility], which was contacted. The patient most recently filled butalbital, Fioricet prescribed by Dr. Maldonado Montes and the patient filled this medication in October 2017. The patient also was on lidocaine, which was filled on 11/02/2017. BuSpar was provided by Dr. Eleazar Buckner. The patient filled that medication on 11/02/2017, 5 mg. The patient was on trazodone [address] Buckner, filled on 11/02/2017. The patient also was prescribed Fioricet, 30 pills were given to her, filled on 11/02/2017. The patient was on Seroquel by , filled on 11/03/2017 and 30 pills were given to her. Same prescriber, Keppra 500 mg twice a day, 30-day supply was given to her. Vital signs seems to be stable. Medications reviewed. Tylenol, Fioricet, Benadryl, Keppra, Percocet, MiraLax, sodium chloride. Labs reviewed. Coagulation reviewed. Chemistry reviewed. Urinalysis: Leukocyte esterase trace. Toxicology was positive only for barbiturate. The patient was asking for benzodiazepines, Klonopin and Ativan, but this medication is very highly addictive and the patient has tendency of misusing and abusing those medications. MENTAL STATUS EXAMINATION: The patient presented to be alert, coherent, oriented, providing inconsistent stories. Fair eye contact. Speech was normal rate, tone, quality and quantity. Mood described, I feel depressed. At the same time, the patient denied worsening of her depression. The patient adamantly denied thoughts of harming herself or others. Denied intent or plan. The patient reported that she hears voices, but obviously the patient is not psychotic. Does not present to be internally preoccupied or responding to internal stimuli. Insight and judgment seems to be limited. Impulses are well controlled. IMPRESSION: As per history, the patient has mood spectrum disorder, antisocial personality disorder, polysubstance abuse and dependence, addiction to the pain killers as well as benzodiazepines. PLAN: The patient has followup appointment with psychiatrist on 11/19/[address] Velazco. The patient was advised to take medication as it was prescribed. The patient was advised to keep her appointments. The patient presented to be not in any imminent danger to self or others. Does not meet the criteria for Psychiatric Inpatient Unit. This keno writer will sign off. Discuss with the Medical team. Thank you very much for letting me participate in the care of your patient. Janice Guerra MD
== END 2017-11-04 19:20 | disposition home or self-care (01) ==
LOC: ED 19:07 → ERH 22:39 → 2RSO 11-04 00:28
PROVIDERS: ADMIT Internal Medicine; ATTEND Internal Medicine
DX: R55 Syncope and collapse (principal); E11.43 Type 2 diabetes mellitus with diabetic autonomic (poly)neuropathy; K31.84 Gastroparesis; I11.0 Hypertensive heart disease with heart failure; I50.30 Unspecified diastolic (congestive) heart failure; F10.10 Alcohol abuse, uncomplicated; F41.9 Anxiety disorder, unspecified; G89.29 Other chronic pain; F31.9 Bipolar disorder, unspecified; K21.9 Gastro-esophageal reflux disease without esophagitis; E78.1 Pure hyperglyceridemia; G40.909 Epilepsy, unspecified, not intractable, without status epilepticus; F60.2 Antisocial personality disorder; F13.20 Sedative, hypnotic or anxiolytic dependence, uncomplicated; Z87.891 Personal history of nicotine dependence; Z88.5 Allergy status to narcotic agent; Z88.0 Allergy status to penicillin
CPT/HCPCS: 36415; 70450; 70486; 71045; 73080; 80053; 80320; 80324; 80345; 80346; 80349; 80353; 80358; 80361; 81001; 82550; 83615; 83992; 84484; 85027; 85610; 85730; 93005; 97116; 97161; 97530; 99285; G0378; G8978; G8979; J7040

== ENCOUNTER 2017-11-11 13:25 | Emergency (ER) | payer MEDICAID ==
[2017-11-11 13:55] VITALS: TEMP 98; BMI 22.1
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
--- NOTE | 2017-11-11 15:08 | RAD ---
PROCEDURE: Radiographs of the Chest and Left Ribs. HISTORY: fall 1 week ago, with persistent rib pain COMPARISON: 11/03/2017. TECHNIQUE: Frontal radiograph of the chest and multiple oblique radiographs of the left ribs were obtained. FINDINGS: LEFT RIBS: No fracture or focal lesion visualized. LUNGS: Clear. PLEURA: No pneumothorax or pleural fluid. CARDIOVASCULAR: Normal sized heart. No pulmonary vascular congestion. OTHER FINDINGS: None. IMPRESSION: Unremarkable radiographs of the chest and left ribs. No left rib fracture.
--- NOTE | 2017-11-11 15:09 | RAD ---
PROCEDURE: Radiographs of the Left Shoulder HISTORY: s/p fall 10 days ago COMPARISON: No prior. FINDINGS: BONES: Normal. No fracture. JOINTS: Normal. Glenohumeral and acromioclavicular joints preserved. No osteoarthritis. SOFT TISSUES: Normal. OTHER FINDINGS: None. IMPRESSION: Normal radiographs of the left shoulder.
[2017-11-11 15:48] VITALS: BP 110/70; PULSE 86; RESP 16; O2SAT 99
== END 2017-11-11 15:22 | disposition home or self-care (01) ==
LOC: ED 13:25
DX: T14.8XXA Other injury of unspecified body region, initial encounter (principal); W19.XXXA Unspecified fall, initial encounter; E11.9 Type 2 diabetes mellitus without complications; I10 Essential (primary) hypertension

== ENCOUNTER 2017-11-20 17:13 | Emergency (ER) | payer MEDICAID ==
[2017-11-20 17:43] VITALS: TEMP 98.7; BMI 24.0
[2017-11-20] MEDS ORDERED: Oxycodone/Acetaminophen 10/325 mg Tab PO ONE (17:57)
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
[2017-11-20] MEDS ORDERED: Lidocaine 5% Patch TD ONE (18:45)
[2017-11-20 21:24] VITALS: BP 121/63; PULSE 93; RESP 16; O2SAT 98
--- NOTE | 2017-11-21 09:25 | RAD ---
PROCEDURE: Radiographs of the Chest and Left Ribs. HISTORY: report of multiple left sided rib fractures COMPARISON: None available. TECHNIQUE: Frontal radiograph of the chest and multiple oblique radiographs of the left ribs were obtained. FINDINGS: LEFT RIBS: No acute displaced fractures visualized LUNGS: Clear. PLEURA: No pneumothorax or pleural fluid. CARDIOVASCULAR: Normal sized heart. No pulmonary vascular congestion. OTHER FINDINGS: None. IMPRESSION: Unremarkable radiographs of the chest and left ribs. No left rib fracture.
--- NOTE | 2017-11-21 09:28 | RAD ---
PROCEDURE: Radiographs of the Left Shoulder HISTORY: fall COMPARISON: 11/11/2017 FINDINGS: BONES: There is a minimal nondisplaced fracture of the greater tuberosity JOINTS: Normal. Glenohumeral and acromioclavicular joints preserved. No osteoarthritis. SOFT TISSUES: Normal. OTHER FINDINGS: None. IMPRESSION: There is a minimal nondisplaced fracture of the greater tuberosity
[2017-11-21] MEDS ORDERED: Lidocaine 5% Patch TD ONE (18:07)
== END 2017-11-20 19:35 | disposition home or self-care (01) ==
LOC: ED 17:13
DX: S20.212D Contusion of left front wall of thorax, subsequent encounter (principal); W19.XXXD Unspecified fall, subsequent encounter; F11.20 Opioid dependence, uncomplicated

== ENCOUNTER 2017-12-13 16:34 | Emergency (ER) | payer MEDICAID ==
[2017-12-13 16:37] VITALS: BMI 21.2
[2017-12-13 16:44] VITALS: TEMP 98.9
[2017-12-13] MEDS ORDERED: Sodium Chloride 0.9% 1,000 ML IV STA ×2 (16:51→18:00)
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
[2017-12-13 17:41] LABS: BASO # 0.01 K/mm3 (0.0-2.0); BASO % 0.2 % (0.0-3.0); EOS # 0.1 (0.0-0.7); EOS % 1.2 % (1.5-5.0); GRAN # 2.81 (1.4-6.5); GRAN % 46.6 % (50.0-68.0); HEMOGLOBIN 10.6 g/dL (12.0-16.0); LYMPH # 2.8 (1.2-3.4); LYMPH % 46.5 % (22.0-35.0); MEAN CELL VOLUME 85.6 fl (80.0-105.0); MEAN CORPUSCULAR HEMOGLOBIN 27.2 pg (25.0-35.0); MEAN CORPUSCULAR HGB CONC 31.8 g/dl (31.0-37.0); MEAN PLATELET VOLUME 9.2 fl (7.0-11.0); MONO # 0.3 (0.1-0.6); MONO % 5.5 % (1.0-6.0); RBC 3.89 10^6/uL (3.5-6.1); RED CELL DISTRIBUTION WIDTH 13.3 % (11.5-14.5)
--- NOTE | 2017-12-13 17:49 | RAD ---
HISTORY: near syncope COMPARISON: Comparison made with prior chest 11/20/2017 FINDINGS: LUNGS: No active pulmonary disease. PLEURA: No significant pleural effusion identified, no pneumothorax apparent. CARDIOVASCULAR: Normal. OSSEOUS STRUCTURES: Dextroscoliosis mid thoracic spine with levoscoliosis upper lumbar spine. VISUALIZED UPPER ABDOMEN: Metallic clips in the EG junction region possibly related to prior Tania fundoplication. Clinical correlation recommended. OTHER FINDINGS: None. IMPRESSION: No acute infiltrates. Scoliosis as described.
[2017-12-13 17:52] LABS: ALB/GLOB RATIO 1.3 (1.1-1.8); ALBUMIN 3.7 g/dL (3.0-4.8); ALT/SGPT 35 U/L (7-56); AST/SGOT 39 U/L (14-36); BLOOD UREA NITROGEN 17 mg/dL (7-21); CALCIUM 8.8 mg/dL (8.4-10.5); GFR AFRICAN-AMERICAN > 60; GFR NON-AFRICAN AMERICAN > 60; LIPASE 22 U/L (23-300)
[2017-12-13 18:03] LABS: TROPONIN I < 0.01 ng/mL
[2017-12-13 21:22] VITALS: BP 100/62; PULSE 96; RESP 20
[2017-12-13 21:26] VITALS: O2SAT 97
--- NOTE | 2017-12-15 16:59 | CARD ---
APPROVED REPORT EKG Measurement Heart [id number] <Conclusion> Normal sinus rhythm Possible Left atrial enlargement Septal infarct, age undetermined Abnormal ECG
== END 2017-12-13 21:25 | disposition home or self-care (01) ==
LOC: ED 16:34
DX: R55 Syncope and collapse (principal); E11.9 Type 2 diabetes mellitus without complications; I10 Essential (primary) hypertension
CPT/HCPCS: 71045; 80053; 82550; 83615; 83690; 84484; 85025; 93005; 96374; 99283; J2405; J7030

== ENCOUNTER 2018-01-04 18:33 | Emergency (ER) | payer MEDICAID ==
[2018-01-04 18:33] VITALS: BMI 21.2
[2018-01-04 18:46] VITALS: BP 110/68; PULSE 84; RESP 19; TEMP 98.2
[2018-01-04] MEDS ORDERED: Apap-Butalbital-Caffeine 325-50-40mg Tab PO STA (18:56)
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
[2018-01-04 20:15] LABS: URINE BILIRUBIN NEGATIVE (NEGATIVE); URINE BLOOD NEGATIVE (NEGATIVE); URINE COLOR YELLOW (YELLOW); URINE GLUCOSE (UA) NEGATIVE (NEGATIVE); URINE LEUKOCYTE ESTERASE NEGATIVE Leu/uL (NEGATIVE); URINE PROTEIN NEGATIVE mg/dL (<30 mg/dL); URINE UROBILINOGEN 0.2 E.U./dL (<1 E.U./dL)
[2018-01-04 20:16] LABS: URINE APPEARANCE CLEAR (CLEAR)
[2018-01-04 20:33] LABS: BASO # 0.02 K/mm3 (0.0-2.0); BASO % 0.3 % (0.0-3.0); EOS # 0.1 (0.0-0.7); GRAN # 2.52 (1.4-6.5); GRAN % 41.5 % (50.0-68.0); LYMPH # 3.2 (1.2-3.4); LYMPH % 53.1 % (22.0-35.0); MEAN CELL VOLUME 84.1 fl (80.0-105.0); MEAN CORPUSCULAR HEMOGLOBIN 27.3 pg (25.0-35.0); MEAN CORPUSCULAR HGB CONC 32.4 g/dl (31.0-37.0); MEAN PLATELET VOLUME 9.3 fl (7.0-11.0); MONO # 0.3 (0.1-0.6); MONO % 4.1 % (1.0-6.0); RBC 4.03 10^6/uL (3.5-6.1); RED CELL DISTRIBUTION WIDTH 13.7 % (11.5-14.5); WHITE BLOOD COUNT 6.1 10^3/ul (4.5-11.0)
[2018-01-04 20:38] LABS: BARBITURATES, UR POSITIVE (NEGATIVE); BENZODIAZEPINES, UR NEGATIVE (NEGATIVE); OPIATES, UR NEGATIVE (NEGATIVE); PHENCYCLIDINE, UR NEGATIVE (NEGATIVE)
[2018-01-04 20:40] LABS: HCG,QUALITATIVE URINE NEGATIVE (NEGATIVE)
[2018-01-04 20:42] LABS: INR 1.03 (0.93-1.08); PARTIAL THROMBOPLASTIN TIME 25.7 Seconds (25.1-36.5); PROTHROMBIN TIME 11.7 SECONDS (9.4-12.5)
[2018-01-04 20:58] LABS: TROPONIN I < 0.01 ng/mL
[2018-01-04 21:02] LABS: ALB/GLOB RATIO 1.4 (1.1-1.8); ALBUMIN 3.8 g/dL (3.0-4.8); ALT/SGPT 34 U/L (7-56); AST/SGOT 22 U/L (14-36); BLOOD UREA NITROGEN 23 mg/dL (7-21); GFR AFRICAN-AMERICAN > 60; GFR NON-AFRICAN AMERICAN 52
[2018-01-04 22:58] VITALS: O2SAT 98
--- NOTE | 2018-01-05 08:23 | CT ---
PROCEDURE: CT HEAD WITHOUT CONTRAST. HISTORY: fall trauma COMPARISON: None available. TECHNIQUE: Axial computed tomography images were obtained through the head/brain without intravenous contrast. Radiation dose: Total exam DLP = mGy-cm. This CT exam was performed using one or more of the following dose reduction techniques: Automated exposure control, adjustment of the mA and/or kV according to patient size, and/or use of iterative reconstruction technique. FINDINGS: HEMORRHAGE: No intracranial hemorrhage. BRAIN: No mass effect or edema. No atrophy or chronic microvascular ischemic changes. VENTRICLES: Unremarkable. No hydrocephalus. CALVARIUM: Unremarkable. PARANASAL SINUSES: Unremarkable as visualized. No significant inflammatory changes. MASTOID AIR CELLS: Unremarkable as visualized. No inflammatory changes. OTHER FINDINGS: None. IMPRESSION: Normal CT of the Head.
--- NOTE | 2018-01-05 09:37 | CARD ---
APPROVED REPORT EKG Measurement Heart [id number] <Conclusion> Normal sinus rhythm Normal ECG
== END 2018-01-04 22:10 | disposition home or self-care (01) ==
LOC: ED 18:33
DX: R55 Syncope and collapse (principal); I10 Essential (primary) hypertension; E11.9 Type 2 diabetes mellitus without complications; G40.909 Epilepsy, unspecified, not intractable, without status epilepticus

== ENCOUNTER 2018-01-18 15:32 | Emergency (ER) | payer MEDICAID ==
[2018-01-18 15:46] VITALS: TEMP 98.4; BMI 20.3
[2018-01-18] MEDS ORDERED: oxyCODONE 5 mg Immediate Release Tab PO STA (16:46)
[2018-01-18 16:49] VITALS: PULSE 65; RESP 18
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
[2018-01-18 19:32] VITALS: BP 140/83; O2SAT 100
== END 2018-01-18 18:35 | disposition home or self-care (01) ==
LOC: ED 15:32
DX: R10.9 Unspecified abdominal pain (principal); G89.29 Other chronic pain

== ENCOUNTER 2018-02-02 01:18 | Observation (INO) | payer MEDICAID ==
[2018-02-02 01:19] VITALS: BMI 22.1
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
[2018-02-02] MEDS ORDERED: Sodium Chloride 0.9% 1,000 ML IV STA (02:41)
[2018-02-02 03:03] LABS: BASO # 0.03 K/mm3 (0.0-2.0); BASO % 0.3 % (0.0-3.0); EOS # 0.1 (0.0-0.7); EOS % 0.5 % (1.5-5.0); GRAN # 3.45 (1.4-6.5); GRAN % 37.9 % (50.0-68.0); HEMOGLOBIN 12.3 g/dL (12.0-16.0); LYMPH % 54.3 % (22.0-35.0); MEAN CORPUSCULAR HGB CONC 34.3 g/dl (31.0-37.0); MEAN PLATELET VOLUME 9.4 fl (7.0-11.0); MONO # 0.6 (0.1-0.6); RBC 4.56 10^6/uL (3.5-6.1); RED CELL DISTRIBUTION WIDTH 14.7 % (11.5-14.5)
[2018-02-02 03:05] LABS: WHITE BLOOD COUNT 9.1 10^3/ul (4.5-11.0)
[2018-02-02 03:06] LABS: MEAN CELL VOLUME 78.7 fl (80.0-105.0)
[2018-02-02 03:49] LABS: ALB/GLOB RATIO 1.4 (1.1-1.8); ALBUMIN 4.2 g/dL (3.0-4.8); CALCIUM 9.4 mg/dL (8.4-10.5)
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
[2018-02-02] MEDS ORDERED: Potassium Chloride 20 MEQ in Dextrose 5%/0.45% NS 1,000 ML IV SCH (07:30)
[2018-02-02] MEDS ORDERED: oxyCODONE 10 mg Immediate Release Tab PO PRN ×2 (07:38→08:02)
[2018-02-02 08:28] LABS: VENOUS BLOOD GAS BASE EXCESS -4.8 mmol/L (0.0-2.0); VENOUS BLOOD GAS PO2 30 mm/Hg (30-55); VENOUS BLOOD PH 7.32 (7.32-7.43)
[2018-02-02 08:29] LABS: BASO # 0.03 K/mm3 (0.0-2.0); BASO % 0.5 % (0.0-3.0); EOS # 0.1 (0.0-0.7); EOS % 1.1 % (1.5-5.0); GRAN # 1.93 (1.4-6.5); HEMOGLOBIN 11.3 g/dL (12.0-16.0); LYMPH # 4.3 (1.2-3.4); LYMPH % 64.3 % (22.0-35.0); MEAN CELL VOLUME 80.3 fl (80.0-105.0); MEAN CORPUSCULAR HEMOGLOBIN 26.8 pg (25.0-35.0); MEAN CORPUSCULAR HGB CONC 33.4 g/dl (31.0-37.0); MEAN PLATELET VOLUME 8.7 fl (7.0-11.0); MONO # 0.3 (0.1-0.6); MONO % 5.1 % (1.0-6.0); RBC 4.21 10^6/uL (3.5-6.1); RED CELL DISTRIBUTION WIDTH 14.8 % (11.5-14.5); WHITE BLOOD COUNT 6.6 10^3/ul (4.5-11.0)
[2018-02-02 08:48] LABS: ALB/GLOB RATIO 1.4 (1.1-1.8); ALBUMIN 3.9 g/dL (3.0-4.8); ALT/SGPT 41 U/L (7-56); AST/SGOT 22 U/L (14-36); BLOOD UREA NITROGEN 28 mg/dL (7-21); CALCIUM 9.2 mg/dL (8.4-10.5); GFR NON-AFRICAN AMERICAN 52
--- NOTE | 2018-02-02 09:48 | PCM.FALL ---
<OsmelSincere - Last Filed: 02/02/18 09:56> Post Fall Progress Note - Post Fall Fall Date: 02/02/18 Fall Time: 09:31 Description of Fall: Sincere Bolivar D.O. PGY-2, Internal Medicine Resident, Tez on Duty - Code Star Response Code Star was called by RN after patient experienced unwitnessed fall to her bilateral hips and knees. Patient reports that she was using the restroom and decided to not wait for her RN to assist her back to her bed. As she was walking from the bathroom to her bed, she tripped over her foot and fell to the ground landing on her bilateral hips and knees. She denies any dizziness, LOC, headache, changes in her vision or injuring/hitting/landing on her head and neck. - Post Fall Exam Vital Sign: Temp Pulse Resp BP Pulse Ox 98 F 95 H 18 137/83 97 02/02/18 06:30 02/02/18 06:30 02/02/18 06:30 02/02/18 06:30 02/02/18 06:30 Skull Exam: Negative for: Scalp wound, Scalp hematoma, Scalp depression, Ridge in skull Eye Exam: Positive for: Pupils equal, Pupils reactive Ear Exam: Negative for: Discharge, Bleeding Nose Exam: Negative for: Discharge, Bleeding Skin Exam: Negative for: Colour, Lacerations, Grazes, Bruising Mouth Exam: Negative for: Tongue bitten, Teeth dislodge Neck Exam: Negative for: Tenderness, Tingling, Weakness Spinal Exam: Negative for: Tenderness, Tingling, Weakness Chest Exam: Negative for: Difficulty breathing, Tenderness in collar bones, Tenderness in ribs Abdomen Exam: Negative for: Tenderness Pelvic Exam: Positive for: Tenderness (Bilateral anterior/lateral hips R>L) Arm Exam: Negative for: Deformity, Alteration in range of movement Leg Exam: Negative for: Deformity, Alteration in range of movement Other pertinent findings: TTP to bilateral anterior knees/patellar region Impression/Plan: 52F s/p unwitnessed mechanical fall 1. S/P Mechanical Fall -HDS and VSS; AM Labs noted to be without any significant abnormalities -Bilateral Hip and Knee X-Rays and Orthostatic VS pending -Bilateral LE noted to be neurovascularly intact -Neurochecks Q2H as prdered -Fall Precautions -Patient to be moved to desk bed for closer observation -Reinforced that patient needs to wait for assistance with ambulation with verbal understanding/agreement demonstrated -Attending notified Patient seen and case discussed with attending Ivanna PGY2 <Darrell Gatica - Last Filed: 02/02/18 12:15> Post Fall Progress Note - Post Fall Exam Vital Sign: Temp Pulse Resp BP Pulse Ox 98 F 95 H 18 137/83 97 02/02/18 06:30 02/02/18 06:30 02/02/18 06:30 02/02/18 06:30 02/02/18 06:30 Attending/Attestation - Attestation I have personally seen and examined this patient.: Yes I have fully participated in the care of the patient.: Yes I have reviewed all pertinent clinical information, including history, physical exam and plan: Yes
[2018-02-02] MEDS ORDERED: POLYETHYLENE GLYCOL 3350 17 GM/Dose PACKET PO SCH ×2 (10:00→18:00)
--- NOTE | 2018-02-02 10:25 | CT ---
Date of service: 02/02/2018 PROCEDURE: CT Abdomen and Pelvis without intravenous contrast HISTORY: Crohn's exacerbation COMPARISON: 01/14/2018 TECHNIQUE: CT scan of the abdomen and pelvis was performed without administration of intravenous contrast. Oral contrast was not administered. Coronal and sagittal reformatted images were obtained. Radiation dose: Total exam DLP = 231.24 mGy-cm. This CT exam was performed using one or more of the following dose reduction techniques: Automated exposure control, adjustment of the mA and/or kV according to patient size, and/or use of iterative reconstruction technique. FINDINGS: LOWER THORAX: There is dependent atelectasis in the left lung base, otherwise the visualized lungs are clear. LIVER: Normal in sinus. No gross lesion or ductal dilatation. GALLBLADDER AND BILE DUCTS: Not visualized. PANCREAS: Diffuse atrophy. No gross lesion or ductal dilatation. SPLEEN: Normal in sinus. ADRENALS: No discrete nodule. KIDNEYS AND URETERS: Normal in size without hydronephrosis or nephrolithiasis. VASCULATURE: No aortic aneurysm. BOWEL: Status post gastric bypass surgery. The small bowel loops are normal in caliber. There is large amount of stool in the colon. No bowel dilatation or obstruction. APPENDIX: Normal appendix. PERITONEUM: No free fluid. No free air. LYMPH NODES: No enlarged lymph nodes. BLADDER: Grossly normal in appearance. REPRODUCTIVE: The uterus is normal in size. BONES: No acute fracture. Moderate levoscoliosis in the lumbar spine and multilevel degenerative disc disease. Age indeterminate but likely chronic compression fracture deformity in the T12 vertebral body. OTHER FINDINGS: None. IMPRESSION: No acute abdominal or pelvic abnormality. Constipation. No evidence of bowel obstruction. A preliminary report was provided by [employer].
--- NOTE | 2018-02-02 11:28 | RAD ---
Date of service: 02/02/2018 PROCEDURE: Bilateral Knee Radiographs. HISTORY: Code Star COMPARISON: None. FINDINGS: BONES: Right Knee: Normal. No fracture. Left Knee: Normal. No fracture. JOINTS: Right Knee: Normal. No osteoarthritis. Left knee: Normal. No osteoarthritis. SOFT TISSUES: Right Knee: Normal. Left Knee: Normal. JOINT EFFUSION: Right Knee: None. Left Knee: None. OTHER FINDINGS: None. IMPRESSION: Normal radiographs of the knees.
--- NOTE | 2018-02-02 11:29 | RAD ---
PROCEDURE: Radiographs of the pelvis and bilateral hips HISTORY: Code Star COMPARISON: None. FINDINGS: BONES: Pelvis: Unremarkable. Right hip:Unremarkable. Left hip:Unremarkable. JOINTS: Right hip: Unremarkable. Left hip: Unremarkable. Sacroiliac Joints: Unremarkable. Pubic symphysis: Unremarkable. SOFT TISSUES: Normal. OTHER FINDINGS: None. IMPRESSION: Unremarkable radiographs of the hips and pelvis.
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
[2018-02-02] MEDS ORDERED: Apap-Butalbital-Caffeine 325-50-40mg Tab PO ONE (13:26)
[2018-02-02] MEDS ORDERED: Morphine 2 mg/ml ISec IVP ONE (13:27)
[2018-02-02 14:13] LABS: URINE BILIRUBIN NEGATIVE (NEGATIVE); URINE BLOOD NEGATIVE (NEGATIVE); URINE GLUCOSE (UA) NEGATIVE (NEGATIVE); URINE LEUKOCYTE ESTERASE TRACE Leu/uL (NEGATIVE); URINE PROTEIN NEGATIVE mg/dL (<30 mg/dL); URINE UROBILINOGEN 0.2 E.U./dL (<1 E.U./dL)
[2018-02-02 14:15] LABS: URINE APPEARANCE CLEAR (CLEAR); URINE COLOR LIGHT YELLOW (YELLOW)
[2018-02-02 14:23] LABS: URINE BACTERIA NEG (NEG); URINE EPITHELIAL CELLS 0 - 2 /hpf (0-5); URINE RBC NEGATIVE /hpf (0-2); URINE WBC 0 - 2 /hpf (0-6)
[2018-02-02 14:40] LABS: BARBITURATES, UR POSITIVE (NEGATIVE)
[2018-02-02 14:41] LABS: BENZODIAZEPINES, UR NEGATIVE (NEGATIVE); OPIATES, UR NEGATIVE (NEGATIVE); PHENCYCLIDINE, UR NEGATIVE (NEGATIVE)
--- NOTE | 2018-02-02 16:57 | CARD ---
APPROVED REPORT Date of service: 02/02/2018 EKG Measurement Heart [id number] <Conclusion> Normal sinus rhythm Normal ECG
[2018-02-02 18:54] VITALS: BP 117/83; PULSE 79; RESP 19; TEMP 98.4; O2SAT 98
--- NOTE | 2018-02-03 22:03 | CP.PCM.DIS ---
<Joaquín Trujillo - Last Filed: 02/03/18 21:58> Provider - Provider Date of Admission: 02/02/18 04:25 Attending physician: Darrell Gatica MD Primary care physician: Meet Alcala MD Consults: JS Swanson Time Spent in preparation of Discharge (in minutes): 45 Hospital Course - Lab Results Lab Results: Micro Results 02/02/18 04:54 Urine,Clean Catch Urine Culture - Final Gram Positive Cocci Most Recent Lab Values WBC 6.6 10^3/ul (4.5-11.0) D 02/02/18 08:20 RBC 4.21 10^6/uL (3.5-6.1) 02/02/18 08:20 Hgb 11.3 g/dL (12.0-16.0) L 02/02/18 08:20 Hct 33.8 % (36.0-48.0) L 02/02/18 08:20 MCV 80.3 fl (80.0-105.0) 02/02/18 08:20 MCH 26.8 pg (25.0-35.0) 02/02/18 08:20 MCHC 33.4 g/dl (31.0-37.0) 02/02/18 08:20 RDW 14.8 % (11.5-14.5) H 02/02/18 08:20 Plt Count 280 10^3/uL (120.0-450.0) 02/02/18 08:20 MPV 8.7 fl (7.0-11.0) 02/02/18 08:20 Gran % 29.0 % (50.0-68.0) L 02/02/18 08:20 Lymph % (Auto) 64.3 % (22.0-35.0) H 02/02/18 08:20 Richardson % (Auto) 5.1 % (1.0-6.0) 02/02/18 08:20 Eos % (Auto) 1.1 % (1.5-5.0) L 02/02/18 08:20 Baso % (Auto) 0.5 % (0.0-3.0) 02/02/18 08:20 Gran # 1.93 (1.4-6.5) 02/02/18 08:20 Lymph # (Auto) 4.3 (1.2-3.4) H 02/02/18 08:20 Richardson # (Auto) 0.3 (0.1-0.6) 02/02/18 08:20 Eos # (Auto) 0.1 (0.0-0.7) 02/02/18 08:20 Baso # (Auto) 0.03 K/mm3 (0.0-2.0) 02/02/18 08:20 pO2 30 mm/Hg (30-55) 02/02/18 08:20 VBG pH 7.32 (7.32-7.43) 02/02/18 08:20 VBG pCO2 41.0 (40-60) 02/02/18 08:20 VBG HCO3 21.1 mmol/l (21-28) 02/02/18 08:20 VBG Total CO2 22.4 mmol.L (22-28) 02/02/18 08:20 VBG O2 Sat (Calc) 52.8 % (40-65) 02/02/18 08:20 VBG Base Excess -4.8 mmol/L (0.0-2.0) L 02/02/18 08:20 VBG Potassium 4.0 mmol/L (3.6-5.2) 02/02/18 08:20 Sodium 139.0 mmol/L (132-148) 02/02/18 08:20 Chloride 112.0 mmol/L (98-107) H 02/02/18 08:20 Glucose 93 mg/dl (65-105) 02/02/18 08:20 Lactate 0.8 mmol/L (0.7-2.1) 02/02/18 08:20 FiO2 21.0 % 02/02/18 08:20 Sodium 143 mmol/L (132-148) 02/02/18 08:20 Potassium 3.9 mmol/L (3.6-5.0) 02/02/18 08:20 Chloride 109 mmol/L (98-107) H 02/02/18 08:20 Carbon Dioxide 21 mmol/L (21-33) 02/02/18 08:20 Anion Gap 18 (10-20) 02/02/18 08:20 BUN 28 mg/dL (7-21) H 02/02/18 08:20 Creatinine 1.1 mg/dl (0.7-1.2) 02/02/18 08:20 Est GFR ( Amer) > 60 02/02/18 08:20 Est GFR (Non-Af Amer) 52 02/02/18 08:20 Random Glucose 90 mg/dL (70-110) 02/02/18 08:20 Calcium 9.2 mg/dL (8.4-10.5) 02/02/18 08:20 Total Bilirubin 0.3 mg/dL (0.2-1.3) 02/02/18 08:20 AST 22 U/L (14-36) 02/02/18 08:20 ALT 41 U/L (7-56) 02/02/18 08:20 Alkaline Phosphatase 124 U/L (38-126) 02/02/18 08:20 Troponin I 0.01 ng/mL 02/02/18 08:20 Total Protein 6.6 g/dL (5.8-8.3) 02/02/18 08:20 Albumin 3.9 g/dL (3.0-4.8) 02/02/18 08:20 Globulin 2.7 gm/dL 02/02/18 08:20 Albumin/Globulin Ratio 1.4 (1.1-1.8) 02/02/18 08:20 Lipase 69 U/L (23-300) 02/02/18 02:50 Venous Blood Potassium 4.0 mmol/L (3.6-5.2) 02/02/18 08:20 Urine Color Light yellow (YELLOW) 02/02/18 14:00 Urine Appearance Clear (CLEAR) 02/02/18 14:00 Urine pH 6.0 (4.7-8.0) 02/02/18 14:00 Ur Specific [place] <= 1.005 (1.005-1.035) 02/02/18 14:00 Urine Protein Negative mg/dL (<30 mg/dL) 02/02/18 14:00 Urine Glucose (UA) Negative mg/dL (NEGATIVE) 02/02/18 14:00 Urine Ketones Negative mg/dL (NEGATIVE) 02/02/18 14:00 Urine Blood Negative (NEGATIVE) 02/02/18 14:00 Urine Nitrate Negative (NEGATIVE) 02/02/18 14:00 Urine Bilirubin Negative (NEGATIVE) 02/02/18 14:00 Urine Urobilinogen 0.2 E.U./dL (<1 E.U./dL) 02/02/18 14:00 Ur Leukocyte Esterase Trace William/uL (NEGATIVE) H 02/02/18 14:00 Urine RBC Negative /hpf (0-2) 02/02/18 14:00 Urine WBC 0 - 2 /hpf (0-6) 02/02/18 14:00 Ur Epithelial Cells 0 - 2 /hpf (0-5) 02/02/18 14:00 Urine Bacteria Neg (NEG) 02/02/18 14:00 Urine Opiates Screen Negative (NEGATIVE) 02/02/18 14:00 Urine Methadone Screen Negative (NEGATIVE) 02/02/18 14:00 Ur Barbiturates Screen Positive (NEGATIVE) H 02/02/18 14:00 Ur Phencyclidine Scrn Negative (NEGATIVE) 02/02/18 14:00 Ur Amphetamines Screen Negative (NEGATIVE) 02/02/18 14:00 U Benzodiazepines Scrn Negative (NEGATIVE) 02/02/18 14:00 U Oth Cocaine Metabols Negative (NEGATIVE) 02/02/18 14:00 U Cannabinoids Screen Negative (NEGATIVE) 02/02/18 14:00 - Hospital Course Hospital Course: Joaquín Trujillo DO PGY-1, [employer] Discharge Summary 52F PMH significant gastroparesis for 2 years, Crohn's for 2 years, recurrent seizures on keppra, GERD, HTN, HLD, migrane, polysubstance abuse, anemia, and 5 herniated disks [place] [facility] [place] 02[place]02[place] w/ CC of abdominal pain and constipation for 2 weeks, and nausea and vomiting for 5 days. Per previous documentation, patient is a poor historian. She stated the pain is a constant sharp stabbing pain in epigastric region, LLQ and RLQ. Also reports that she has associated constipation at this time. She cannot recall the last time she had a BM. She's also reporting poor PO intake over the last 3-4 days and states that she's having x5 episodes of bilious vomit over the last day. Of note, Nursing in ED denied any vomitus while pt was there, and no episodes of vomit reported by EMS during transport. Of note, patient reported throughout past months she would alternate between episodes of constipation and diarrhea each episode associated w/ abd pain. Upon ROS pt c/o: MARTINEZ, Anxiety, Diffuse CP along L and R side of chest, and "heart running", N/V/C , abd pain, She denied any: denies any new onset numbness/tingling, focal weakness, urinary discomfort, hematuria, dysuria. Pt was thus admitted for abdominal pain. CT abd pelvis demonstrated stool in colon. Pt was placed on Miralax, pain control, and GI was consulted due to prior hx of multiple hospitalizations for similar chief complaint and extensive GI hx. [facility] was called on pt due to fall in bathroom, XRs revealed no acute fractures. Pt left against medical advice in evening on 02/02/18, after discussion that pt was not on Xanax since September 2017 per pharmacy review, and was only on Percocet 5-325 mg. Pt was given discussion about risks and benefits of leaving against medical advice, and decided to leave the hospital with her own free will. Discharge Exam - Head Exam Head Exam: ATRAUMATIC, NORMAL INSPECTION, NORMOCEPHALIC - Eye Exam Eye Exam: EOMI, Normal appearance, PERRL - ENT Exam ENT Exam: Mucous Membranes Moist, Normal Oropharynx - Respiratory Exam Respiratory Exam: Clear to PA & Lateral, NORMAL BREATHING PATTERN - Cardiovascular Exam Cardiovascular Exam: REGULAR RHYTHM, +S1, +S2 - GI/Abdominal Exam GI & Abdominal Exam: Normal Bowel Sounds, Tenderness - Extremities Exam Extremities exam: full ROM, normal capillary refill, pedal pulses present - Neurological Exam Neurological exam: Alert, CN II-XII Intact, Normal Gait, Oriented x3, Reflexes Normal - Psychiatric Exam Psychiatric exam: Anxious - Skin Skin Exam: Dry, Intact, Normal Color, Warm Discharge Plan - Follow Up Plan Condition: STABLE Disposition: AGAINST MEDICAL ADVICE Instructions: Methylnaltrexone, Acute Abdominal Pain (DC), Acute Abdominal Pain (GEN) Referrals: Meet Alcala MD [Primary Care Provider] - <Darrell Gatica - Last Filed: 02/04/18 08:07> Provider - Provider Date of Admission: 02/02/18 04:25 Attending physician: Darrell Gatica MD Primary care physician: Meet Alcala MD Hospital Course - Lab Results Lab Results: Micro Results 02/02/18 04:54 Urine,Clean Catch Urine Culture - Final Gram Positive Cocci Most Recent Lab Values WBC 6.6 10^3/ul (4.5-11.0) D 02/02/18 08:20 RBC 4.21 10^6/uL (3.5-6.1) 02/02/18 08:20 Hgb 11.3 g/dL (12.0-16.0) L 02/02/18 08:20 Hct 33.8 % (36.0-48.0) L 02/02/18 08:20 MCV 80.3 fl (80.0-105.0) 02/02/18 08:20 MCH 26.8 pg (25.0-35.0) 02/02/18 08:20 MCHC 33.4 g/dl (31.0-37.0) 02/02/18 08:20 RDW 14.8 % (11.5-14.5) H 02/02/18 08:20 Plt Count 280 10^3/uL (120.0-450.0) 02/02/18 08:20 MPV 8.7 fl (7.0-11.0) 02/02/18 08:20 Gran % 29.0 % (50.0-68.0) L 02/02/18 08:20 Lymph % (Auto) 64.3 % (22.0-35.0) H 02/02/18 08:20 Richardson % (Auto) 5.1 % (1.0-6.0) 02/02/18 08:20 Eos % (Auto) 1.1 % (1.5-5.0) L 02/02/18 08:20 Baso % (Auto) 0.5 % (0.0-3.0) 02/02/18 08:20 Gran # 1.93 (1.4-6.5) 02/02/18 08:20 Lymph # (Auto) 4.3 (1.2-3.4) H 02/02/18 08:20 Richardson # (Auto) 0.3 (0.1-0.6) 02/02/18 08:20 Eos # (Auto) 0.1 (0.0-0.7) 02/02/18 08:20 Baso # (Auto) 0.03 K/mm3 (0.0-2.0) 02/02/18 08:20 pO2 30 mm/Hg (30-55) 02/02/18 08:20 VBG pH 7.32 (7.32-7.43) 02/02/18 08:20 VBG pCO2 41.0 (40-60) 02/02/18 08:20 VBG HCO3 21.1 mmol/l (21-28) 02/02/18 08:20 VBG Total CO2 22.4 mmol.L (22-28) 02/02/18 08:20 VBG O2 Sat (Calc) 52.8 % (40-65) 02/02/18 08:20 VBG Base Excess -4.8 mmol/L (0.0-2.0) L 02/02/18 08:20 VBG Potassium 4.0 mmol/L (3.6-5.2) 02/02/18 08:20 Sodium 139.0 mmol/L (132-148) 02/02/18 08:20 Chloride 112.0 mmol/L (98-107) H 02/02/18 08:20 Glucose 93 mg/dl (65-105) 02/02/18 08:20 Lactate 0.8 mmol/L (0.7-2.1) 02/02/18 08:20 FiO2 21.0 % 02/02/18 08:20 Sodium 143 mmol/L (132-148) 02/02/18 08:20 Potassium 3.9 mmol/L (3.6-5.0) 02/02/18 08:20 Chloride 109 mmol/L (98-107) H 02/02/18 08:20 Carbon Dioxide 21 mmol/L (21-33) 02/02/18 08:20 Anion Gap 18 (10-20) 02/02/18 08:20 BUN 28 mg/dL (7-21) H 02/02/18 08:20 Creatinine 1.1 mg/dl (0.7-1.2) 02/02/18 08:20 Est GFR ( Amer) > 60 02/02/18 08:20 Est GFR (Non-Af Amer) 52 02/02/18 08:20 Random Glucose 90 mg/dL (70-110) 02/02/18 08:20 Calcium 9.2 mg/dL (8.4-10.5) 02/02/18 08:20 Total Bilirubin 0.3 mg/dL (0.2-1.3) 02/02/18 08:20 AST 22 U/L (14-36) 02/02/18 08:20 ALT 41 U/L (7-56) 02/02/18 08:20 Alkaline Phosphatase 124 U/L (38-126) 02/02/18 08:20 Troponin I 0.01 ng/mL 02/02/18 08:20 Total Protein 6.6 g/dL (5.8-8.3) 02/02/18 08:20 Albumin 3.9 g/dL (3.0-4.8) 02/02/18 08:20 Globulin 2.7 gm/dL 02/02/18 08:20 Albumin/Globulin Ratio 1.4 (1.1-1.8) 02/02/18 08:20 Lipase 69 U/L (23-300) 02/02/18 02:50 Venous Blood Potassium 4.0 mmol/L (3.6-5.2) 02/02/18 08:20 Urine Color Light yellow (YELLOW) 02/02/18 14:00 Urine Appearance Clear (CLEAR) 02/02/18 14:00 Urine pH 6.0 (4.7-8.0) 02/02/18 14:00 Ur Specific [place] <= 1.005 (1.005-1.035) 02/02/18 14:00 Urine Protein Negative mg/dL (<30 mg/dL) 02/02/18 14:00 Urine Glucose (UA) Negative mg/dL (NEGATIVE) 02/02/18 14:00 Urine Ketones Negative mg/dL (NEGATIVE) 02/02/18 14:00 Urine Blood Negative (NEGATIVE) 02/02/18 14:00 Urine Nitrate Negative (NEGATIVE) 02/02/18 14:00 Urine Bilirubin Negative (NEGATIVE) 02/02/18 14:00 Urine Urobilinogen 0.2 E.U./dL (<1 E.U./dL) 02/02/18 14:00 Ur Leukocyte Esterase Trace William/uL (NEGATIVE) H 02/02/18 14:00 Urine RBC Negative /hpf (0-2) 02/02/18 14:00 Urine WBC 0 - 2 /hpf (0-6) 02/02/18 14:00 Ur Epithelial Cells 0 - 2 /hpf (0-5) 02/02/18 14:00 Urine Bacteria Neg (NEG) 02/02/18 14:00 Urine Opiates Screen Negative (NEGATIVE) 02/02/18 14:00 Urine Methadone Screen Negative (NEGATIVE) 02/02/18 14:00 Ur Barbiturates Screen Positive (NEGATIVE) H 02/02/18 14:00 Ur Phencyclidine Scrn Negative (NEGATIVE) 02/02/18 14:00 Ur Amphetamines Screen Negative (NEGATIVE) 02/02/18 14:00 U Benzodiazepines Scrn Negative (NEGATIVE) 02/02/18 14:00 U Oth Cocaine Metabols Negative (NEGATIVE) 02/02/18 14:00 U Cannabinoids Screen Negative (NEGATIVE) 02/02/18 14:00 Discharge Plan - Follow Up Plan Patient education suggested?: Yes Attending/Attestation - Attestation I have personally seen and examined this patient.: Yes I have fully participated in the care of the patient.: Yes I have reviewed all pertinent clinical information, including history, physical exam and plan: Yes Notes (Text): 52 year old female with past medical history of seizures, migraines, ?Crohns, and polysubstance abuse who presented with complaint of abdominal pain, nauseas , vomiting and constipation. CT abd/pelvis showed constipation. She was started on miralax. Also given relistor by GI. She was requested more narcotics and xanax. She was counselled of risks of substance/opiate abuse. Her medications were reviewed with pharmacy. During hospital stay she had no further episodes of nausea/vomiting. She had one episode of fall while going to bathroom. Xrays were negative. She was seen by GI as above. Patient signed out AMA later in the evening. Darrell aGtica MD Hospitalist.
== END 2018-02-02 20:42 | disposition left against medical advice (07) ==
LOC: ED 01:18 → ERH 04:25 → 3RNO 06:45
PROVIDERS: ADMIT Hospitalist; ATTEND Internal Medicine
DX: K31.84 Gastroparesis (principal); E86.0 Dehydration; G40.909 Epilepsy, unspecified, not intractable, without status epilepticus; K50.90 Crohn's disease, unspecified, without complications; K59.00 Constipation, unspecified; I10 Essential (primary) hypertension; K21.9 Gastro-esophageal reflux disease without esophagitis; G89.4 Chronic pain syndrome; E87.2 Acidosis; E78.5 Hyperlipidemia, unspecified; Z91.14 Patient's other noncompliance with medication regimen; Z90.49 Acquired absence of other specified parts of digestive tract
CPT/HCPCS: 73521; 73562; 74176; 80053; 80324; 80345; 80346; 80349; 80353; 80358; 80361; 81001; 82803; 83690; 83992; 84484; 85025; 87086; 93005; 96372; 96374; 96375; 99284; C9113; G0378; J1644; J2212; J2270; J2405; J7030; J7042

== ENCOUNTER 2018-03-05 16:15 | Emergency (ER) | payer MEDICAID ==
[2018-03-05 16:15] VITALS: BMI 22.1
[2018-03-05] MEDS ORDERED: Sodium Chloride 0.9% 1,000 ML IV STA (16:39)
[2018-03-05 16:41] VITALS: O2SAT 98
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
[2018-03-05 17:26] LABS: URINE BILIRUBIN NEGATIVE (NEGATIVE); URINE BLOOD NEGATIVE (NEGATIVE); URINE GLUCOSE (UA) NEGATIVE (NEGATIVE); URINE LEUKOCYTE ESTERASE TRACE Leu/uL (NEGATIVE); URINE PROTEIN NEGATIVE mg/dL (<30 mg/dL); URINE UROBILINOGEN 0.2 E.U./dL (<1 E.U./dL)
[2018-03-05 17:27] LABS: URINE APPEARANCE CLEAR (CLEAR); URINE COLOR LIGHT YELLOW (YELLOW)
[2018-03-05 17:34] LABS: URINE EPITHELIAL CELLS 0 - 2 /hpf (0-5); URINE RBC NEGATIVE /hpf (0-2); URINE WBC 0 - 2 /hpf (0-6)
[2018-03-05 18:15] LABS: BASO # 0.02 K/mm3 (0.0-2.0); BASO % 0.4 % (0.0-3.0); EOS # 0.2 (0.0-0.7); EOS % 3.1 % (1.5-5.0); GRAN # 1.97 (1.4-6.5); GRAN % 36.1 % (50.0-68.0); HEMOGLOBIN 10.9 g/dL (12.0-16.0); LYMPH # 2.9 (1.2-3.4); LYMPH % 52.7 % (22.0-35.0); MEAN CELL VOLUME 82.3 fl (80.0-105.0); MEAN CORPUSCULAR HEMOGLOBIN 27.2 pg (25.0-35.0); MEAN PLATELET VOLUME 9.2 fl (7.0-11.0); MONO # 0.4 (0.1-0.6); MONO % 7.7 % (1.0-6.0); RBC 4.01 10^6/uL (3.5-6.1); RED CELL DISTRIBUTION WIDTH 15.6 % (11.5-14.5); WHITE BLOOD COUNT 5.5 10^3/ul (4.5-11.0)
[2018-03-05 18:26] LABS: ALB/GLOB RATIO 1.4 (1.1-1.8); ALBUMIN 3.8 g/dL (3.0-4.8); ALT/SGPT 26 U/L (7-56); AST/SGOT 19 U/L (14-36); BLOOD UREA NITROGEN 28 mg/dL (7-21); CALCIUM 9.1 mg/dL (8.4-10.5); GFR AFRICAN-AMERICAN 57; GFR NON-AFRICAN AMERICAN 47; LIPASE 182 U/L (23-300)
[2018-03-05 18:32] LABS: INR 1.04; PROTHROMBIN TIME 11.9 SECONDS (9.4-12.5)
[2018-03-05 18:36] LABS: TROPONIN I < 0.01 ng/mL
[2018-03-05 18:54] LABS: PARTIAL THROMBOPLASTIN TIME 20.3 Seconds (25.1-36.5)
[2018-03-05] MEDS ORDERED: Apap-Butalbital-Caffeine 325-50-40mg Tab PO STA (19:33)
[2018-03-05 20:16] VITALS: BP 93/57; PULSE 78; RESP 16; TEMP 98.1
--- NOTE | 2018-03-06 11:22 | CARD ---
APPROVED REPORT Date of service: 03/05/2018 EKG Measurement Heart [id number] <Conclusion> Sinus rhythm with short [place] Otherwise normal ECG
--- NOTE | 2018-03-06 19:57 | US ---
PROCEDURE: Left lower extremity venous US HISTORY: Leg pain and swelling. Evaluate for DVT. PHYSICIAN(S): Dvaon Hill MD. TECHNIQUE: Duplex sonography and color-flow Doppler with graded compression were used to evaluate the deep venous system of the left lower extremity. FINDINGS: The visualized deep venous system of the left lower extremity is sonographically normal and compressible. Normal wave forms and augmentation are seen. There is no sonographic evidence for deep venous thrombosis in the visualized segments of the left lower extremity. IMPRESSION: 1. No sonographic evidence for deep venous thrombosis in the visualized segments of the left lower extremity.
== END 2018-03-05 20:15 | disposition home or self-care (01) ==
LOC: ED 16:15
DX: R11.2 Nausea with vomiting, unspecified (principal); R19.7 Diarrhea, unspecified; R10.84 Generalized abdominal pain; E11.9 Type 2 diabetes mellitus without complications; I10 Essential (primary) hypertension
CPT/HCPCS: 80053; 81001; 82550; 83615; 83690; 83735; 84484; 85025; 85610; 85730; 87086; 93005; 93971; 96374; 96375; 99283; J2405; J7030

== ENCOUNTER 2018-04-20 01:34 | Emergency (ER) | payer MEDICAID ==
[2018-04-20 01:46] VITALS: BMI 21.0
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
[2018-04-20 07:03] VITALS: BP 96/57; PULSE 77; RESP 18; TEMP 98.1; O2SAT 98
--- NOTE | 2018-04-20 13:15 | RAD ---
Date of service: 04/20/2018 PROCEDURE: Right Knee Radiographs. HISTORY: injury COMPARISON: None. FINDINGS: BONES: Normal. No fracture. JOINTS: Normal. No osteoarthritis. JOINT EFFUSION: None. OTHER FINDINGS: None. IMPRESSION: Normal radiographs of the right knee.
--- NOTE | 2018-04-20 13:19 | RAD ---
Date of service: 04/20/2018 PROCEDURE: Radiographs of the Lumbar Spine. HISTORY: injury COMPARISON: 02/02/2018. CT scan including lumbar spine. FINDINGS: BONES: Compression deformity T12 vertebral body unchanged compared to the prior CT scan 02/02/2018. No acute osseous findings. DISC SPACES: Mild degenerative change L1-2 and L2-3. OTHER FINDINGS: None. IMPRESSION: No acute findings related to/accounting for the clinical presentation. No significant interval change compared to the prior examination(s). Concordant findings (preliminary report) provided by [facility].
== END 2018-04-20 05:02 | disposition home or self-care (01) ==
LOC: ED 01:34
DX: S39.012D Strain of muscle, fascia and tendon of lower back, subsequent encounter (principal); S86.911D Strain of unspecified muscle(s) and tendon(s) at lower leg level, right leg, subsequent encounter; W18.30XD Fall on same level, unspecified, subsequent encounter; M62.838 Other muscle spasm
CPT/HCPCS: 72110; 73562; 96372; 99284; J1885

== ENCOUNTER → 2018-05-14 | Emergency (ER) | payer MEDICAID ==
[~2018-05-14] MED LIST: Oxycodone/Acetaminophen 5/325 mg Tab PO STA
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
[2018-05-14 02:03] VITALS: BMI 22.1
[2018-05-14 02:12] VITALS: BP 101/63; PULSE 77; RESP 17; TEMP 98.2; O2SAT 100
== END | disposition left against medical advice (07) ==
LOC: ED 01:26
DX: Z04.3 Encounter for examination and observation following other accident (principal); W01.0XXA Fall on same level from slipping, tripping and stumbling without subsequent striking against object, initial encounter; Y92.480 Sidewalk as the place of occurrence of the external cause; Z91.19 Patient's noncompliance with other medical treatment and regimen

== ENCOUNTER 2018-06-07 00:14 | Observation (INO) | payer MEDICAID ==
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
[2018-06-07] MEDS ORDERED: Sodium Chloride 0.9% 1,000 ML IV STA (00:47)
[2018-06-07 01:34] VITALS: BMI 21.7
[2018-06-07 02:03] LABS: HEMOGLOBIN 10.5 g/dL (12.0-16.0); MEAN CORPUSCULAR HEMOGLOBIN 26.2 pg (25.0-35.0); MEAN CORPUSCULAR HGB CONC 30.8 g/dl (31.0-37.0); MEAN PLATELET VOLUME 9.6 fl (7.0-11.0); RBC 4.01 10^6/uL (3.5-6.1); RED CELL DISTRIBUTION WIDTH 13.5 % (11.5-14.5); WHITE BLOOD COUNT 5.6 10^3/uL (4.5-11.0)
[2018-06-07 02:11] LABS: ALB/GLOB RATIO 1.3 (1.1-1.8); ALBUMIN 3.8 g/dL (3.0-4.8); ALT/SGPT 19 U/L (7-56); AST/SGOT 15 U/L (14-36); BLOOD UREA NITROGEN 20 mg/dL (7-21); CALCIUM 8.1 mg/dL (8.4-10.5); GFR NON-AFRICAN AMERICAN > 60; LIPASE 53 U/L (23-300)
[2018-06-07] MEDS ORDERED: Sodium Chloride 0.9% 1,000 ML IV SCH (05:30)
[2018-06-07] MEDS ORDERED: Oxycodone/Acetaminophen 5/325 mg Tab PO STA (05:32)
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
[2018-06-07] MEDS ORDERED: oxyCODONE 5 mg Immediate Release Tab PO PRN (05:44)
[2018-06-07 07:15] VITALS: RESP 18
[2018-06-07 08:19] VITALS: BP 107/68; PULSE 78; TEMP 97.7; O2SAT 99
--- NOTE | 2018-06-07 09:10 | CP.PCM.PCO ---
Physician Communication Note - Physician Communication Note Physician Communication Note: Please monitor the Frequency of diarrhea
[2018-06-07] MEDS: Apap-Butalbital-Caffeine 325-50-40mg Tab PO SCH ×2 (09:33→15:16)
[2018-06-07] MEDS ORDERED: levETIRAcetam 500 mg/5ml UD cups PO SCH (10:00)
[2018-06-07] MEDS ORDERED: Pantoprazole 40 mg EC Tab PO SCH (10:00)
--- NOTE | 2018-06-07 13:53 | CP.PCM.DIS ---
Provider - Provider Date of Admission: 06/07/18 04:28 Attending physician: Vikram Oh MD Time Spent in preparation of Discharge (in minutes): 47 Hospital Course - Lab Results Lab Results: Most Recent Lab Values WBC 5.6 10^3/uL (4.5-11.0) 06/07/18 01:40 RBC 4.01 10^6/uL (3.5-6.1) 06/07/18 01:40 Hgb 10.5 g/dL (12.0-16.0) L 06/07/18 01:40 Hct 34.1 % (36.0-48.0) L 06/07/18 01:40 MCV 85.0 fl (80.0-105.0) 06/07/18 01:40 MCH 26.2 pg (25.0-35.0) 06/07/18 01:40 MCHC 30.8 g/dl (31.0-37.0) L 06/07/18 01:40 RDW 13.5 % (11.5-14.5) 06/07/18 01:40 Plt Count 239 10^3/uL (120.0-450.0) 06/07/18 01:40 MPV 9.6 fl (7.0-11.0) 06/07/18 01:40 Sodium 140 mmol/L (132-148) 06/07/18 01:40 Potassium 4.1 mmol/L (3.6-5.0) 06/07/18 01:40 Chloride 112 mmol/L (98-107) H 06/07/18 01:40 Carbon Dioxide 21 mmol/L (21-33) 06/07/18 01:40 Anion Gap 11 (10-20) 06/07/18 01:40 BUN 20 mg/dL (7-21) 06/07/18 01:40 Creatinine 0.9 mg/dl (0.7-1.2) 06/07/18 01:40 Est GFR ( Amer) > 60 06/07/18 01:40 Est GFR (Non-Af Amer) > 60 06/07/18 01:40 POC Glucose (mg/dL) 100 mg/dL (65-110) 06/07/18 08:25 Random Glucose 103 mg/dL (70-110) 06/07/18 01:40 Calcium 8.1 mg/dL (8.4-10.5) L 06/07/18 01:40 Total Bilirubin 0.2 mg/dL (0.2-1.3) 06/07/18 01:40 AST 15 U/L (14-36) 06/07/18 01:40 ALT 19 U/L (7-56) 06/07/18 01:40 Alkaline Phosphatase 90 U/L (38-126) 06/07/18 01:40 Total Protein 6.7 g/dL (5.8-8.3) 06/07/18 01:40 Albumin 3.8 g/dL (3.0-4.8) 06/07/18 01:40 Globulin 3.0 gm/dL 06/07/18 01:40 Albumin/Globulin Ratio 1.3 (1.1-1.8) 06/07/18 01:40 Lipase 53 U/L (23-300) 06/07/18 01:40 - Hospital Course Hospital Course: 52 year old female with a past medical history significant for HTN, DM2 with associated gastroparesis, seizure disorder, depression, anxiety, and chronic pain on half-way opiates who presented with two days of reported nausea, vomiting and non-bloody diarrhea. Prior to arrival, patients vomiting was noted to have subsided but she had two episodes of unwitnessed diarrhea since admission. This was noted to be an improvement from her reported diarrhea of fiv e times per day [employer]. Patient's labs were grossly within normal limits or at patients baseline. A lipase was wnl. She was started on IV fluids, PRN Zofran and a liquid diet. This was progressed to a soft diet without complications as patient was requesting even more food. She reports that she felt better than when she was admitted after PO intake. She was started on her home medications for her chronic conditions. She remained HDS during admission and was discharged home on 06/07/2018 with a prescription of PRN Zofran and instructions to follow up with her PMD and her environmental health physician as an outpatient. - Date & Time of H&P Date of H&P: 06/07/18 Time of H&P: 05:33 Discharge Exam - Head Exam Head Exam: ATRAUMATIC, NORMOCEPHALIC - Eye Exam Eye Exam: EOMI, Normal appearance, PERRL Pupil Exam: NORMAL ACCOMODATION - ENT Exam ENT Exam: Mucous Membranes Dry - Neck Exam Neck exam: Full Rom - Respiratory Exam Respiratory Exam: Clear to PA & Lateral, NORMAL BREATHING PATTERN, UNREMARKABLE - Cardiovascular Exam Cardiovascular Exam: REGULAR RHYTHM - GI/Abdominal Exam GI & Abdominal Exam: Normal Bowel Sounds, Soft, Unremarkable. absent: Tenderness - Extremities Exam Extremities exam: normal inspection - Neurological Exam Neurological exam: Alert, Normal Gait, Oriented x3 - Psychiatric Exam Psychiatric exam: Normal Affect, Normal Mood - Skin Skin Exam: Dry, Intact, Normal Color, Warm Discharge Plan - Discharge Medications Prescriptions: Ondansetron ODT [Zofran ODT] 4 mg PO Q6 PRN #10 odt PRN Reason: Nausea/Vomiting - Follow Up Plan Condition: GOOD Disposition: HOME/ ROUTINE Instructions: Acute Abdominal Pain (DC), Acute Abdominal Pain (GEN) Additional Instructions: Please follow these instructions after you are discharged from the hospital: Please follow up with your primary care doctor within 3-5 upon discharge Please follow up with you environmental health physician (stomach doctor), Dr. Barrett within 1 week of discharge. Please review the results of your endoscopy with him and your primary care doctor Please resume the medications that you were taking at home. Please return to the nearest emergency room if your symptoms return.
[2018-06-07] MEDS ORDERED: Pneumococcal 23-Valent Vaccine IM ONE (14:45)
[2018-06-07] MEDS ORDERED: Influenza Vaccine 60 mcg/0.5 mL SYR (4YR UP) IM ONE (14:45)
== END 2018-06-07 16:18 | disposition home or self-care (01) ==
LOC: ED 00:14 → ERH 04:28 → 5RSO 06:47
PROVIDERS: ADMIT Internal Medicine; ATTEND Internal Medicine
DX: K52.9 Noninfective gastroenteritis and colitis, unspecified (principal); E11.43 Type 2 diabetes mellitus with diabetic autonomic (poly)neuropathy; K31.84 Gastroparesis; F31.9 Bipolar disorder, unspecified; F43.10 Post-traumatic stress disorder, unspecified; F41.0 Panic disorder [episodic paroxysmal anxiety]; I10 Essential (primary) hypertension; K21.9 Gastro-esophageal reflux disease without esophagitis; G40.909 Epilepsy, unspecified, not intractable, without status epilepticus; Z87.891 Personal history of nicotine dependence; Z88.0 Allergy status to penicillin
CPT/HCPCS: 80053; 82948; 83690; 85027; 96361; 96374; 96375; 96376; 99285; G0378; J1885; J1953; J2405; J7030

== ENCOUNTER 2018-06-08 11:45 | Emergency (ER) | payer MEDICAID ==
[2018-06-08 11:46] VITALS: BMI 22.1
[2018-06-08 12:28] VITALS: O2SAT 98
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
[2018-06-08 14:32] LABS: PH,URINE 6.5 (4.7-8.0); URINE BILIRUBIN NEGATIVE (NEGATIVE); URINE BLOOD NEGATIVE (NEGATIVE); URINE GLUCOSE (UA) NEGATIVE (NEGATIVE); URINE LEUKOCYTE ESTERASE SMALL Leu/uL (NEGATIVE); URINE PROTEIN NEGATIVE mg/dL (<30 mg/dL); URINE UROBILINOGEN 0.2 E.U./dL (<1 E.U./dL)
[2018-06-08 14:35] LABS: URINE APPEARANCE CLEAR (CLEAR); URINE COLOR YELLOW (YELLOW)
[2018-06-08 14:36] LABS: URINE EPITHELIAL CELLS 0 - 2 /hpf (0-5); URINE RBC NEGATIVE /hpf (0-2); URINE WBC 0 - 2 /hpf (0-6)
[2018-06-08 14:45] LABS: BARBITURATES, UR POSITIVE (NEGATIVE); BENZODIAZEPINES, UR NEGATIVE (NEGATIVE); OPIATES, UR NEGATIVE (NEGATIVE); PHENCYCLIDINE, UR NEGATIVE (NEGATIVE)
--- NOTE | 2018-06-08 14:59 | RAD ---
Date of service: 06/08/2018 PROCEDURE: CHEST RADIOGRAPH, 1 VIEW HISTORY: medical screening COMPARISON: 01/14/2018 FINDINGS: LUNGS: Clear. PLEURA: No pneumothorax or pleural fluid seen. CARDIOVASCULAR: No aortic atherosclerotic calcification present. No radiographic findings to suggest acute or significant cardiovascular disease. OSSEOUS STRUCTURES: No significant abnormalities. VISUALIZED UPPER ABDOMEN: Normal. OTHER FINDINGS: None. IMPRESSION: No active disease. No acute/significant interval changes.
[2018-06-08 15:07] LABS: BASO # 0.02 K/mm3 (0.0-2.0); BASO % 0.4 % (0.0-3.0); EOS # 0.1 (0.0-0.7); EOS % 1.9 % (1.5-5.0); GRAN # 1.65 (1.4-6.5); GRAN % 35.1 % (50.0-68.0); HEMOGLOBIN 10.5 g/dL (12.0-16.0); LYMPH # 2.8 (1.2-3.4); LYMPH % 58.6 % (22.0-35.0); MEAN CELL VOLUME 85.3 fl (80.0-105.0); MEAN CORPUSCULAR HEMOGLOBIN 26.6 pg (25.0-35.0); MEAN CORPUSCULAR HGB CONC 31.2 g/dl (31.0-37.0); MEAN PLATELET VOLUME 9.5 fl (7.0-11.0); MONO # 0.2 (0.1-0.6); RBC 3.95 10^6/uL (3.5-6.1); RED CELL DISTRIBUTION WIDTH 13.4 % (11.5-14.5); WHITE BLOOD COUNT 4.7 10^3/uL (4.5-11.0)
[2018-06-08 15:21] LABS: ACETAMINOPHEN < 10.0 ug/ml (10.0-20.0); SALICYLATE < 1 mg/dL (2.0-20.0)
[2018-06-08 16:05] LABS: ALB/GLOB RATIO 1.3 (1.1-1.8); ALBUMIN 3.8 g/dL (3.0-4.8); ALT/SGPT 24 U/L (7-56); AST/SGOT 21 U/L (14-36); BLOOD UREA NITROGEN 16 mg/dL (7-21); CALCIUM 7.8 mg/dL (8.4-10.5); GFR NON-AFRICAN AMERICAN > 60
[2018-06-08 17:52] VITALS: BP 117/74; PULSE 78; RESP 18; TEMP 98.2
--- NOTE | 2018-06-09 05:54 | CARD ---
APPROVED REPORT Date of service: 06/08/2018 EKG Measurement Heart [id number] <Conclusion> Normal sinus rhythm Normal ECG
== END 2018-06-08 17:52 | disposition home or self-care (01) ==
LOC: ED 11:45
DX: Z73.5 Social role conflict, not elsewhere classified (principal); I10 Essential (primary) hypertension; E11.9 Type 2 diabetes mellitus without complications; Z87.891 Personal history of nicotine dependence

== ENCOUNTER 2018-06-08 18:06 | Emergency (ER) | payer MEDICAID ==
[2018-06-08 18:07] VITALS: BMI 22.1
--- NOTE | 2018-06-08 18:25 | ED PDOC ---
Arrival/HPI - History of Present Illness Narrative History of Present Illness (Text): 06/08/18 18:21 52 year old female with PMH of HTN, gastroparesis, seizures, DM, depression, substance abuse, anxiety, presents to the ED for psychiatric evaluation stating that she wants to kill herself. Pt is well known to the ED. Patient was recently discharged from [facility] this afternoon and signed back in less than 1 hour later with similar complaints. She states that she does not want to go home, does not want to go to a assisted, and feels like she might hurt herself; no plan. States she ran out of her oxycodone. She is a patient of Dr. Piña, who is very familiar with her case and psychiatric/medical history. No physical complaints. Denies fevers, chills, weakness, headache, dizziness, cough, sore throat, chest pain, shortness of breath, dyspena on exertion, abdominal pain, nausea, vomiting, diarrhea, neck/back pain, urinary/bowel symptoms, trauma/injury or any other complaints. Past Medical History - Past History Past History: Non-Contributing - Infectious Disease Hx of Infectious Diseases: None - Tetanus Immunization Tetanus Immunization: Unknown - Past Medical History Past Medical History: No Previous - Cardiac Hx Cardiac Disorders: Yes Hx Hypertension: Yes - Pulmonary Hx Respiratory Disorders: Yes (used to smoke cigarettes.Quit) - Neurological Hx Neurological Disorder: Yes Hx Dizziness: Yes - HEENT Hx HEENT Disorder: No - Renal Hx Renal Disorder: No - Endocrine/Metabolic Hx Endocrine Disorders: Yes Hx Diabetes Mellitus Type 2: Yes - Hematological/Oncological Hx Blood Disorders: Yes Hx Anemia: Yes - Integumentary Hx Dermatological Disorder: No - Musculoskeletal/Rheumatological Hx Musculoskeletal Disorders: Yes Hx Falls: Yes Hx Fractures: Yes (ankle and knee) Hx Herniated Disk: Yes - Gastrointestinal Hx Gastrointestinal Disorders: Yes Hx Gastroesophageal Reflux: Yes Other/Comment: diverticulosis. gastroparesis - Genitourinary/Gynecological Hx Genitourinary Disorders: Yes Other/Comment: endometriosis - Psychiatric Hx Substance Use: No - Surgical History Hx Cholecystectomy: Yes (2013 w/ vagotomy) Other/Comment: vagotomy? 2013 Patient is poor historian. right ankle sx 1998. right knee ligament tear 2008 - Anesthesia Hx Anesthesia: Yes - Suicidal Assessment Feels Threatened In Home Enviroment: No Family/Social History - Physician Review Nursing Documentation Reviewed: Yes Family/Social History: No Known Family HX Smoking Status: Former Smoker Hx Alcohol Use: No Hx Substance Use: No Hx Substance Use Treatment: No Allergies/Home Meds Allergies/Adverse Reactions: Allergies Penicillins Allergy (Intermediate, Verified 06/08/18 18:32) HIVES Home Medications: Home Meds Medication Instructions Recorded Confirmed Amitriptyline HCl 10 mg PO DAILY 06/07/18 06/07/18 Clonazepam [Klonopin] 1 mg PO DAILY PRN 06/07/18 06/07/18 Omeprazole 20 mg PO DAILY 06/07/18 06/07/18 Zaleplon [Sonata] 10 mg PO HS 06/07/18 06/07/18 Ziprasidone HCl [Geodon] 20 mg PO DAILY 06/07/18 06/07/18 Review of Systems - Physician Review All systems were reviewed & negative as marked: Yes - Review of Systems Constitutional: Normal. absent: Fatigue, Fevers Eyes: Normal. absent: Vision Changes ENT: Normal. absent: Sore Throat, Sinus Congestion Respiratory: Normal. absent: SOB, Cough Cardiovascular: Normal. absent: Chest Pain, Palpitations Gastrointestinal: Normal. absent: Abdominal Pain, Nausea, Vomiting Genitourinary Female: Normal. absent: Dysuria, Frequency Musculoskeletal: Normal Skin: Normal, Other (bite indentation left wrist; no broken skin). absent: Rash, Cellulitis Neurological: Normal. absent: Headache, Dizziness Endocrine: Normal Hemo/Lymphatic: Normal Psychiatric: Normal Physical Exam Vital Signs Reviewed: Yes Temperature: Afebrile Blood Pressure: Normal Pulse: Regular Respiratory Rate: Normal Appearance: Positive for: Well-Appearing, Non-Toxic, Comfortable Pain Distress: None Mental Status: Positive for: Alert and Oriented X 3 - Systems Exam Head: Present: Atraumatic, Normocephalic Pupils: Present: PERRL Extroacular Muscles: Present: EOMI Conjunctiva: Present: Normal Mouth: Present: Moist Mucous Membranes Neck: Present: Normal Range of Motion Respiratory/Chest: Present: Clear to Auscultation, Good Air Exchange. No: Respiratory Distress, Accessory Muscle Use Cardiovascular: Present: Regular Rate and Rhythm, Normal S1, S2. No: Murmurs Abdomen: No: Tenderness, Distention, Peritoneal Signs Back: Present: Normal Inspection Upper Extremity: Present: Normal ROM, NORMAL PULSES, Neurovascularly Intact, Capillary Refill < 2s, Other (bite indentation to L wrist, no break in the skin). No: Cyanosis, Edema Lower Extremity: Present: Normal Inspection, NORMAL PULSES, Normal ROM, Neurovascularly Intact, Capillary Refill < 2 s. No: Edema Neurological: Present: GCS=15, CN II-XII Intact, Speech Normal Skin: Present: Warm, Dry, Normal Color. No: Rashes Psychiatric: Present: Alert, Oriented x 3, Normal Insight, Normal Concentration Medical Decision Making ED Course and Treatment: Initial Plan: * 1:1 * PES Evaluation * Reassess and Disposition Reviewed lab results and EKG from earlier today, along with historical data from prior visits. With no physical complaints and a normal physical exam, patient is medically cleared for psychiatric evaluation. 19:00 BERNARDO Martinez at patient's bedside. Dr. Grace and Cyn Centeno made aware multiple times of patient's verbalization of suicidal ideation and attempts at self harm by biting her wrists, both prior to registration and while in the ED. After discussion with Dr. Grace, patient is psychiatrically cleared for discharge home with diagnosis of Depressive Disorder, Anxiety Disorder, and Familial Relation Disorder. Patient will followup with Dr. Grace outpatient. Plan of care discussed with patient, who understands and agrees. Strict instructions given regarding prescription use, importance of followup, and signs/symptoms to return to the ER. Patient verbalizes understanding of discussion. Patient is A&Ox3, ambulating with steady gait, with vital signs stable for discharge. Disposition/Present on Arrival - Present on Arrival Any Indicators Present on Arrival: No History of DVT/PE: No History of Uncontrolled Diabetes: No Urinary Catheter: No History Surgical Site Infection Following: None - Disposition Have Diagnosis and Disposition been Completed?: Yes Diagnosis: Social discord, Depressive disorder, Anxiety disorder, Family relationship problem Disposition: HOME/ ROUTINE Disposition Time: 19:20 Patient Problems: Current Active Problems Problem Status Onset Anxiety disorder Acute Depressive disorder Acute Family relationship problem Acute Social discord Acute Condition: STABLE Discharge Instructions (ExitCare): Depression, Adult (DC), Anxiety, Adult (DC) Additional Instructions: Followup with your psychiatrist Dr. Grace within 2 days as instructed Take home medications as prescribed Return to ER with any new/worsening symptoms Referrals: Mindy MERCEDES,Clive Butcher APN [Primary Care Provider] - Follow up with primary Gucci Grace MD [Staff Provider] - Follow up with primary Forms: [employer] (Palauan)
[2018-06-08 18:33] VITALS: RESP 20; TEMP 97.6
[2018-06-08 19:56] VITALS: BP 116/72; PULSE 78; O2SAT 100
== END 2018-06-08 19:55 | disposition home or self-care (01) ==
LOC: ED 18:06
DX: F41.9 Anxiety disorder, unspecified (principal); F32.9 Major depressive disorder, single episode, unspecified; Z73.5 Social role conflict, not elsewhere classified; Z63.9 Problem related to primary support group, unspecified

== ENCOUNTER 2018-06-09 14:46 | Emergency (ER) | payer MEDICAID ==
[2018-06-09 15:14] VITALS: BMI 24.1
[2018-06-09 15:33] VITALS: TEMP 98
[2018-06-09 15:56] LABS: BASO # 0.02 K/mm3 (0.0-2.0); BASO % 0.5 % (0.0-3.0); EOS # 0.1 (0.0-0.7); EOS % 2.8 % (1.5-5.0); GRAN # 1.56 (1.4-6.5); GRAN % 35.9 % (50.0-68.0); HEMOGLOBIN 11.1 g/dL (12.0-16.0); LYMPH # 2.4 (1.2-3.4); LYMPH % 54.3 % (22.0-35.0); MEAN CELL VOLUME 85.2 fl (80.0-105.0); MEAN CORPUSCULAR HEMOGLOBIN 26.9 pg (25.0-35.0); MEAN CORPUSCULAR HGB CONC 31.5 g/dl (31.0-37.0); MEAN PLATELET VOLUME 9.3 fl (7.0-11.0); MONO # 0.3 (0.1-0.6); MONO % 6.5 % (1.0-6.0); RBC 4.13 10^6/uL (3.5-6.1); RED CELL DISTRIBUTION WIDTH 13.4 % (11.5-14.5); WHITE BLOOD COUNT 4.3 10^3/uL (4.5-11.0)
[2018-06-09 15:58] LABS: PH,URINE 6.5 (4.7-8.0); URINE APPEARANCE SL CLOUDY (CLEAR); URINE BILIRUBIN NEGATIVE (NEGATIVE); URINE BLOOD NEGATIVE (NEGATIVE); URINE COLOR STRAW (YELLOW); URINE GLUCOSE (UA) NEGATIVE (NEGATIVE); URINE LEUKOCYTE ESTERASE MODERATE Leu/uL (NEGATIVE); URINE PROTEIN NEGATIVE mg/dL (<30 mg/dL); URINE UROBILINOGEN 0.2 E.U./dL (<1 E.U./dL)
[2018-06-09 16:07] LABS: ALB/GLOB RATIO 1.3 (1.1-1.8); ALBUMIN 4.1 g/dL (3.0-4.8); ALT/SGPT 24 U/L (7-56); AST/SGOT 24 U/L (14-36); BLOOD UREA NITROGEN 14 mg/dL (7-21); CALCIUM 8.3 mg/dL (8.4-10.5); GFR NON-AFRICAN AMERICAN > 60
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
[2018-06-09 16:17] LABS: BENZODIAZEPINES, UR NEGATIVE (NEGATIVE)
[2018-06-09 16:19] LABS: URINE BACTERIA NEG (NEG); URINE RBC 0 - 2 /hpf (0-2)
[2018-06-09 16:20] LABS: BARBITURATES, UR POSITIVE (NEGATIVE); OPIATES, UR NEGATIVE (NEGATIVE); PHENCYCLIDINE, UR NEGATIVE (NEGATIVE)
[2018-06-09 17:41] VITALS: BP 121/53; PULSE 75
[2018-06-09 18:33] VITALS: RESP 20; O2SAT 99
--- NOTE | 2018-06-10 09:26 | CARD ---
APPROVED REPORT Date of service: 06/09/2018 EKG Measurement Heart [id number] <Conclusion> Normal sinus rhythm Mildly prolonged QTc
== END 2018-06-09 18:32 | disposition home or self-care (01) ==
LOC: ED 14:46
DX: Z04.3 Encounter for examination and observation following other accident (principal); W19.XXXA Unspecified fall, initial encounter; Y92.9 Unspecified place or not applicable; F41.9 Anxiety disorder, unspecified; I11.0 Hypertensive heart disease with heart failure; I50.9 Heart failure, unspecified; E78.5 Hyperlipidemia, unspecified; E11.9 Type 2 diabetes mellitus without complications; D64.9 Anemia, unspecified; Z87.891 Personal history of nicotine dependence

== ENCOUNTER 2018-06-12 21:00 | Emergency (ER) | payer MEDICAID ==
[2018-06-12 21:03] VITALS: BMI 21.7
[2018-06-12 21:21] VITALS: RESP 18; TEMP 98.5; O2SAT 100
--- NOTE | 2018-06-12 23:33 | ED PDOC ---
Arrival/HPI - General Chief Complaint: Trauma Time Seen by Provider: 06/12/18 21:02 Historian: Patient - History of Present Illness Narrative History of Present Illness (Text): 06/12/18 21:30 52 year old female, whose past medical history includes CHF, hypertension, hyperlipidemia, diabetes, and psychiatric disorder, who was brought in to the Emergency department from home by ambulance complaining of right rib pain status post slipping and falling on hardwood floor, presenting with a slow and steady gait. Patient states that she is unsure if she hit her head and denies any LOC. Patient denies symptoms prior to fall, or any other complaint. Time/Duration: Prior to Arrival Symptom Onset: Sudden Symptom Course: Unchanged Context: Slipped (Patient notes she slipped and fell on hardwood floor) Past Medical History - Provider Review Nursing Documentation Reviewed: Yes - Past History Past History: Non-Contributing - Infectious Disease Hx of Infectious Diseases: None - Tetanus Immunization Tetanus Immunization: Unknown - Past Medical History Past Medical History: No Previous - Cardiac Hx Cardiac Disorders: Yes Hx Hypertension: Yes - Pulmonary Hx Respiratory Disorders: No - Neurological Hx Neurological Disorder: Yes Hx Seizures: Yes - HEENT Hx HEENT Disorder: No - Renal Hx Renal Disorder: No - Endocrine/Metabolic Hx Endocrine Disorders: Yes Hx Hyperthyroidism: Yes Hx Hypothyroidism: Yes - Hematological/Oncological Hx Blood Disorders: No - Integumentary Hx Dermatological Disorder: No - Musculoskeletal/Rheumatological Hx Musculoskeletal Disorders: Yes Hx Arthritis: Yes Hx Fractures: Yes (ankle and knee) - Gastrointestinal Hx Gastrointestinal Disorders: Yes Hx Crohn's Disease: Yes Hx Gall Bladder Disease: Yes Hx Pancreatitis: Yes - Genitourinary/Gynecological Hx Genitourinary Disorders: No - Psychiatric Hx Psychophysiologic Disorder: Yes Hx Anxiety: Yes Hx Bipolar Disorder: Yes Hx Depression: Yes Hx Post Traumatic Stress Disorder: Yes Hx Substance Use: Yes (Hx Opiod overdose) - Surgical History Hx Cholecystectomy: Yes (2014 w/ vagotomy) - Anesthesia Hx Anesthesia: Yes Hx Anesthesia Reactions: No Hx Malignant Hyperthermia: No - Suicidal Assessment Feels Threatened In Home Enviroment: No Family/Social History - Physician Review Nursing Documentation Reviewed: Yes Family/Social History: No Known Family HX Smoking Status: Former Smoker Hx Alcohol Use: No Hx Substance Use: Yes (Hx Opiod overdose) Hx Substance Use Treatment: No Allergies/Home Meds Allergies/Adverse Reactions: Allergies Penicillins Allergy (Intermediate, Verified 06/12/18 21:10) HIVES Home Medications: Home Meds Medication Instructions Recorded Confirmed Amitriptyline HCl 10 mg PO DAILY 06/07/18 06/07/18 Clonazepam [Klonopin] 1 mg PO DAILY PRN 06/07/18 06/07/18 Omeprazole 20 mg PO DAILY 06/07/18 06/07/18 Zaleplon [Sonata] 10 mg PO HS 06/07/18 06/07/18 Ziprasidone HCl [Geodon] 20 mg PO DAILY 06/07/18 06/07/18 Review of Systems - Physician Review All systems were reviewed & negative as marked: Yes - Review of Systems Constitutional: Normal Cardiovascular: Other (patient complaining of right rib pain status post slipping and falling on hardwood floor. ). absent: Normal Physical Exam Vital Signs Reviewed: Yes Vital Signs Temp Pulse Resp BP Pulse Ox 06/12/18 21:20 98.5 F 105 H 18 129/62 100 Temperature: Afebrile Blood Pressure: Normal Pulse: Tachycardic Respiratory Rate: Normal Appearance: Positive for: Well-Appearing, Non-Toxic Pain Distress: Mild Mental Status: Positive for: Alert and Oriented X 3 - Systems Exam Head: Present: Atraumatic, Normocephalic Pupils: Present: PERRL Extroacular Muscles: Present: EOMI Conjunctiva: Present: Normal Mouth: Present: Moist Mucous Membranes Neck: Present: Normal Range of Motion Respiratory/Chest: Present: Clear to Auscultation, Good Air Exchange, Other (tender to right anterior rib cage 6-10th rib). No: Respiratory Distress, Accessory Muscle Use Cardiovascular: Present: Regular Rate and Rhythm, Normal S1, S2. No: Murmurs Abdomen: No: Tenderness, Distention, Peritoneal Signs Back: Present: Normal Inspection Upper Extremity: Present: Normal Inspection. No: Cyanosis, Edema Lower Extremity: Present: Normal Inspection. No: Edema Neurological: Present: GCS=15, CN II-XII Intact, Speech Normal Skin: Present: Warm, Dry, Normal Color. No: Rashes Psychiatric: Present: Alert, Oriented x 3, Normal Insight, Normal Concentration Medical Decision Making ED Course and Treatment: 06/12/18 21:30 Impression: 52 year old female who presents to the Emergency department from home by ambulance complaining of right rib pain status post slipping and falling on hardwood floor. Plan: -- CT of chest w/o contrast -- CT of head w/o contrast -- Tylenol 325mg tab PO -- Reassess and disposition Prior Visits: Notes and results from previous visits were reviewed. Patient was last seen in the emergency department on 06/09/18 for evaluation status post fall. Patient was discharged home in improved condition with diagnosis of fall and anxiety, and directed to follow up with PMD. Progress Notes: - RAD Interpretation Narrative RAD Interpretations (Text): CT of head w/o contrast reviewed by radiologist, shows: Exam Date: Jun 12, 2018 10:21:09 PM FINDINGS: BRAIN No acute intraparenchymal hemorrhage. No mass lesion. No CT evidence for acute territorial infarct. No midline shift or extra-axial collections. VENTRICLES: No hydrocephalus. ORBITS: The orbits are unremarkable. SINUSES AND MASTOIDS: The paranasal sinuses and mastoid air cells are clear. BONES: No fracture. SOFT TISSUES: Unremarkable. IMPRESSION: No acute intracranial abnormality. CT of chest w/o contrast reviewed by radiologist, shows: Exam Date: Jun 12, 2018 10:23:38 PM FINDINGS: LUNGS: The lungs are clear. No pulmonary mass. PLEURAL SPACES: No evidence of pneumothorax. No pleural effusion. HEART: No cardiomegaly. No significant pericardial effusion. LYMPH NODES: No lymphadenopathy is evident. BONES: No focal osseous abnormality or acute fracture. Moderate thoracic dextroscoliosis. UPPER ABDOMEN: The upper abdominal solid organs are unremarkable. Surgical clips in the epigastric region. The stomach is distended and there is large amount of undigested food particles. IMPRESSION: No acute pathology. Radiology Orders: 06/12/18 21:36 CHEST W/O CONTRAST [CT] Stat HEAD W/O CONTRAST [CT] Stat Bundle Collector: Radiologist - Medication Orders Current Medication Orders: Discontinued Medications Acetaminophen (Tylenol 325mg Tab) 975 mg PO STAT STA Stop: 06/12/18 21:38 Last Admin: 06/12/18 21:48 Dose: 975 mg - Scribe Statement The provider has reviewed the documentation as recorded by the Scribe Key Perrin All medical record entries made by the Scribe were at my direction and personally dictated by me. I have reviewed the chart and agree that the record accurately reflects my personal performance of the history, physical exam, medical decision making, and the department course for this patient. I have also personally directed, reviewed, and agree with the discharge instructions and disposition. Disposition/Present on Arrival - Present on Arrival Any Indicators Present on Arrival: No History of DVT/PE: No History of Uncontrolled Diabetes: No Urinary Catheter: No History of Decub. Ulcer: No History Surgical Site Infection Following: None - Disposition Have Diagnosis and Disposition been Completed?: Yes Diagnosis: Rib contusion Disposition: HOME/ ROUTINE Disposition Time: 23:50 Condition: GOOD Discharge Instructions (ExitCare): Bruised Rib (DC) Additional Instructions: CHARLENE HILLS, thank you for letting us take care of you today. The emergency medical care you received today was directed at your acute symptoms. If you were prescribed any medication, please fill it and take as directed. It may take several days for your symptoms to resolve. Return to the Emergency Department if your symptoms worsen, do not improve, or if you have any other problems. Please contact your doctor or call one of the physicians/clinics you have been referred to that are listed on the Patient Visit Information form that is included in your discharge packet. Bring any paperwork you were given at discharge with you along with any medications you are taking to your follow up visit. Our treatment cannot replace ongoing medical care by a primary care provider outside of the emergency department. Thank you for allowing the [facility] team to be part of your care today. Follow up with your primary care doctor this week for re-evaluation and further management. Referrals: [facility], [Non-Staff] - Follow up with primary Forms: [employer] (Polish)
[2018-06-13 00:20] VITALS: BP 118/79; PULSE 95
--- NOTE | 2018-06-13 10:00 | CT ---
Date of service: 06/12/2018 PROCEDURE: CT HEAD WITHOUT CONTRAST. HISTORY: s/p fall r/o ICH and fx COMPARISON: 01/14/2018 TECHNIQUE: Axial computed tomography images were obtained through the head/brain without intravenous contrast. Radiation dose: Total exam DLP = 745.45 mGy-cm. This CT exam was performed using one or more of the following dose reduction techniques: Automated exposure control, adjustment of the mA and/or kV according to patient size, and/or use of iterative reconstruction technique. FINDINGS: HEMORRHAGE: No intracranial hemorrhage. BRAIN: No mass effect or edema. Mild frontal atrophy. VENTRICLES: Unremarkable. No hydrocephalus. CALVARIUM: Unremarkable. PARANASAL SINUSES: Unremarkable as visualized. No significant inflammatory changes. MASTOID AIR CELLS: Unremarkable as visualized. No inflammatory changes. OTHER FINDINGS: The report concurs with the preliminary [facility] report IMPRESSION: No acute intracranial findings
--- NOTE | 2018-06-13 10:01 | CT ---
Date of service: 06/12/2018 PROCEDURE: CT Chest without contrast HISTORY: s/p fall r/o fx COMPARISON: None available. TECHNIQUE: Contiguous axial images were obtained through the chest without intravenous contrast enhancement. Sagittal and coronal reconstructions were performed. Radiation dose: Total exam DLP = 275.59 mGy-cm. This CT exam was performed using one or more of the following dose reduction techniques: Automated exposure control, adjustment of the mA and/or kV according to patient size, and/or use of iterative reconstruction technique. FINDINGS: LUNGS: Clear lungs. Visualized airway clear MEDIASTINUM: Unremarkable thoracic aorta. No aneurysm. Normal sized heart. Main pulmonary artery unremarkable. No vascular congestion. No lymphadenopathy. No aortic atherosclerotic calcification. PLEURA: No pleural fluid. No pneumothorax. BONES: No fracture. No destructive lesion. UPPER ABDOMEN: Grossly unremarkable. OTHER FINDINGS: The report concurs with the preliminary [facility] report IMPRESSION: Unremarkable non-contrast enhanced CT of the chest.
== END 2018-06-12 23:58 | disposition home or self-care (01) ==
LOC: ED 21:00
DX: S20.211A Contusion of right front wall of thorax, initial encounter (principal); W01.0XXA Fall on same level from slipping, tripping and stumbling without subsequent striking against object, initial encounter; Y92.9 Unspecified place or not applicable

== ENCOUNTER 2018-07-03 00:37 | Emergency (ER) | payer MEDICAID ==
[2018-07-03 00:38] VITALS: BMI 21.7
[2018-07-03 01:05] VITALS: TEMP 98.4
--- NOTE | 2018-07-03 01:34 | ED PDOC ---
Arrival/HPI - General Chief Complaint: Medical Clearance Time Seen by Provider: 07/03/18 00:44 Historian: Patient - History of Present Illness Narrative History of Present Illness (Text): 07/03/18 01:31 52 year old female, whose past medical history includes bipolar disorder, chrones disease, depression, hypertension, and PTSD, who presents to the Emergency department complaining of feeling depressed. Patient states she needs tot talk to psychiatrist and that she can't find her medication.Patient states she wants to be admitted to the psyc floor.She denies any SI/HI. Patient denies any fever, chills, chest pain, shortness of breath, nausea, vomiting, diarrhea, back pain, neck pain, headache, dizziness, or any other complaints. Time/Duration: Prior to Arrival Symptom Onset: Gradual Symptom Course: Unchanged Activities at Onset: Light Context: Home Past Medical History - Provider Review Nursing Documentation Reviewed: Yes - Past History Past History: Non-Contributing - Infectious Disease Hx of Infectious Diseases: None - Tetanus Immunization Tetanus Immunization: Unknown - Reproductive Menopause: Yes - Past Medical History Past Medical History: No Previous - Cardiac Hx Cardiac Disorders: Yes Hx Hypertension: Yes - Pulmonary Hx Respiratory Disorders: No - Neurological Hx Neurological Disorder: Yes Hx Seizures: Yes - HEENT Hx HEENT Disorder: No - Renal Hx Renal Disorder: No - Endocrine/Metabolic Hx Endocrine Disorders: Yes Hx Hyperthyroidism: Yes Hx Hypothyroidism: Yes - Hematological/Oncological Hx Blood Disorders: No - Integumentary Hx Dermatological Disorder: No - Musculoskeletal/Rheumatological Hx Musculoskeletal Disorders: Yes Hx Arthritis: Yes Hx Fractures: Yes (ankle and knee) - Gastrointestinal Hx Gastrointestinal Disorders: Yes Hx Crohn's Disease: Yes Hx Gall Bladder Disease: Yes Hx Pancreatitis: Yes - Genitourinary/Gynecological Hx Genitourinary Disorders: No - Psychiatric Hx Psychophysiologic Disorder: Yes Hx Anxiety: Yes Hx Bipolar Disorder: Yes Hx Depression: Yes Hx Post Traumatic Stress Disorder: Yes Hx Substance Use: Yes (Hx Opiod overdose) - Surgical History Hx Cholecystectomy: Yes (2014 w/ vagotomy) - Anesthesia Hx Anesthesia: Yes Hx Anesthesia Reactions: No Hx Malignant Hyperthermia: No - Suicidal Assessment Feels Threatened In Home Enviroment: No Family/Social History - Physician Review Nursing Documentation Reviewed: Yes Family/Social History: Unknown Family HX Smoking Status: Former Smoker Hx Alcohol Use: No Hx Substance Use: Yes (Hx Opiod overdose) Hx Substance Use Treatment: No Allergies/Home Meds Allergies/Adverse Reactions: Allergies Penicillins Allergy (Intermediate, Verified 07/03/18 01:05) HIVES Home Medications: Home Meds Medication Instructions Recorded Confirmed Amitriptyline HCl 10 mg PO DAILY 06/07/18 07/03/18 Clonazepam [Klonopin] 1 mg PO DAILY PRN 06/07/18 07/03/18 Omeprazole 20 mg PO DAILY 06/07/18 07/03/18 Zaleplon [Sonata] 10 mg PO HS 06/07/18 07/03/18 Ziprasidone HCl [Geodon] 20 mg PO DAILY 06/07/18 07/03/18 Review of Systems - Physician Review All systems were reviewed & negative as marked: Yes - Review of Systems Constitutional: Normal Eyes: Normal ENT: Normal Respiratory: Normal. absent: SOB, Cough Cardiovascular: Normal. absent: Chest Pain Gastrointestinal: Normal. absent: Abdominal Pain, Diarrhea, Nausea, Vomiting Genitourinary Female: Normal. absent: Dysuria, Frequency, Other Musculoskeletal: Normal. absent: Back Pain Skin: Normal Neurological: Normal Endocrine: Normal Hemo/Lymphatic: Normal Psychiatric: Depression. absent: Suicidal Ideation Physical Exam Vital Signs Reviewed: Yes Vital Signs Temp Pulse Resp BP Pulse Ox 07/03/18 00:55 98.4 F 80 17 101/67 97 Temperature: Afebrile Blood Pressure: Normal Pulse: Regular Respiratory Rate: Normal Appearance: Positive for: Well-Appearing, Non-Toxic, Comfortable Pain Distress: None Mental Status: Positive for: Alert and Oriented X 3 - Systems Exam Head: Present: Atraumatic, Normocephalic Pupils: Present: PERRL Extroacular Muscles: Present: EOMI Conjunctiva: Present: Normal Mouth: Present: Moist Mucous Membranes Neck: Present: Normal Range of Motion Respiratory/Chest: Present: Clear to Auscultation, Good Air Exchange. No: Respiratory Distress, Accessory Muscle Use Cardiovascular: Present: Regular Rate and Rhythm, Normal S1, S2. No: Murmurs Abdomen: No: Tenderness, Distention, Peritoneal Signs Back: Present: Normal Inspection Upper Extremity: Present: Normal Inspection. No: Cyanosis, Edema Lower Extremity: Present: Normal Inspection. No: Edema Neurological: Present: GCS=15, CN II-XII Intact, Speech Normal Skin: Present: Warm, Dry, Normal Color. No: Rashes Psychiatric: Present: Alert, Oriented x 3, Normal Insight, Normal Concentration Medical Decision Making ED Course and Treatment: 07/03/18 01:36 Impression: 52 year old female presents to the Emergency department complaining of feeling depressed tonight. Plan: -- EKG -- Labs -- CXR Progress Notes: 07/03/18 05:12 Patient was medically cleared seen and evaluated by the PES worker who consulted with the psychiatrist . requested that the patient remain in the ED for Face to face eval. by her in the AM. 07/03/18 06:00 Notified by PES worker Donna that request that patient now be discharged for follow up out patient on Wednesday. - RAD Interpretation Narrative RAD Interpretations (Text): 07/03/18 03:07 CXR- No acute process Radiology Orders: 07/03/18 01:23 CHEST PORTABLE [RAD] Stat Poundmaster: ED Physician - EKG Interpretation EKG Interpretation (Text): 07/03/18 03:07 EKG- NSR@86,no acute changes Interpreted by ED Physician: Yes Type: 12 lead EKG - Scribe Statement The provider has reviewed the documentation as recorded by the Scribe Cheyenne Payton All medical record entries made by the Scribe were at my direction and personall y dictated by me. I have reviewed the chart and agree that the record accurately reflects my personal performance of the history, physical exam, medical decision making, and the department course for this patient. I have also personally directed, reviewed, and agree with the discharge instructions and disposition. Disposition/Present on Arrival - Present on Arrival Any Indicators Present on Arrival: No History of DVT/PE: No History of Uncontrolled Diabetes: No Urinary Catheter: No History of Decub. Ulcer: No History Surgical Site Infection Following: None - Disposition Have Diagnosis and Disposition been Completed?: No Diagnosis: Depression Disposition: HOME/ ROUTINE Disposition Time: 06:22 Patient Plan: Discharge Patient Problems: Current Active Problems Problem Status Onset Depressed Chronic Condition: STABLE Discharge Instructions (ExitCare): Depression, Adult (DC) Additional Instructions: Follow up outpatient [facility] Forms: [employer] (Uzbek)
[2018-07-03 02:55] LABS: HEMOGLOBIN 10.7 g/dL (12.0-16.0); MEAN CELL VOLUME 83.6 fl (80.0-105.0); MEAN CORPUSCULAR HEMOGLOBIN 26.2 pg (25.0-35.0); MEAN CORPUSCULAR HGB CONC 31.3 g/dl (31.0-37.0); MEAN PLATELET VOLUME 9.5 fl (7.0-11.0); RBC 4.09 10^6/uL (3.5-6.1); RED CELL DISTRIBUTION WIDTH 14.6 % (11.5-14.5); WHITE BLOOD COUNT 6.3 10^3/uL (4.5-11.0)
[2018-07-03 03:08] LABS: ALB/GLOB RATIO 1.4 (1.1-1.8); ALBUMIN 3.9 g/dL (3.0-4.8); ALT/SGPT 54 U/L (7-56); AST/SGOT 38 U/L (14-36); BLOOD UREA NITROGEN 27 mg/dL (7-21); CALCIUM 9.1 mg/dL (8.4-10.5); GFR NON-AFRICAN AMERICAN 52
[2018-07-03 03:43] LABS: BARBITURATES, UR POSITIVE (NEGATIVE); BENZODIAZEPINES, UR POSITIVE (NEGATIVE); OPIATES, UR POSITIVE (NEGATIVE); PHENCYCLIDINE, UR NEGATIVE (NEGATIVE)
[2018-07-03 05:16] VITALS: RESP 18; O2SAT 100
[2018-07-03 06:34] VITALS: BP 115/65; PULSE 72
--- NOTE | 2018-07-03 08:33 | RAD ---
HISTORY: medical clearance COMPARISON: Chest x-ray performed 06/08/18 TECHNIQUE: Chest, one view. FINDINGS: LUNGS: No focal consolidation. Please note that chest x-ray has limited sensitivity for the detection of pulmonary masses. PLEURA: No significant pleural effusion identified. No definite pneumothorax . CARDIOVASCULAR: Heart size appears within normal limits. Aortic ectasia. OSSEOUS STRUCTURES: Osseous demineralization. Scoliosis convex to the right. VISUALIZED UPPER ABDOMEN: Small surgical clips at the gastroesophageal junction. OTHER FINDINGS: None. IMPRESSION: No focal consolidation identified.
--- NOTE | 2018-07-03 18:39 | CARD ---
APPROVED REPORT Date of service: 07/03/2018 EKG Measurement Heart [id number] <Conclusion> Normal sinus rhythm Normal Electrocardiogram
== END 2018-07-03 06:30 | disposition home or self-care (01) ==
LOC: ED 00:37
DX: F32.9 Major depressive disorder, single episode, unspecified (principal); I10 Essential (primary) hypertension; Z87.891 Personal history of nicotine dependence; F31.9 Bipolar disorder, unspecified; F43.10 Post-traumatic stress disorder, unspecified

== ENCOUNTER 2018-07-17 14:03 | Emergency (ER) | payer MEDICAID ==
[2018-07-17 14:04] VITALS: BMI 21.7
== END 2018-07-17 14:12 | disposition left against medical advice (07) ==
LOC: ED 14:03
DX: Z02.89 Encounter for other administrative examinations (principal); Z00.00 Encounter for general adult medical examination without abnormal findings

== ENCOUNTER 2018-07-31 18:07 | Emergency (ER) | payer MEDICAID ==
[2018-07-31 18:10] VITALS: BMI 23.9
[2018-07-31 18:40] VITALS: RESP 18
--- NOTE | 2018-07-31 19:11 | ED PDOC ---
Arrival/HPI - General Chief Complaint: Lower Extremity Problem/Injury Time Seen by Provider: 07/31/18 18:10 Historian: Patient - History of Present Illness Narrative History of Present Illness (Text): 07/31/18 19:07 52 year old female, whose past medical history includes hypertension, gastroparesis, seizures, diabetes, bipolar disorder, chrones disease, depression, hypertension, and PTSD, presents complaining of burning pain and swelling to the left knee. Patient had a left medial knee meniscus surgery 07/21/18. Patient denies any other symptoms. Patient denies any fever, chills, back pain, neck pain, headache, dizziness, or any other complaints. PMD: Dr. Clive Guillen Time/Duration: Other (3 days) Symptom Onset: Gradual Symptom Course: Unchanged Activities at Onset: Light Context: Home Past Medical History - Provider Review Nursing Documentation Reviewed: Yes - Past History Past History: Non-Contributing - Infectious Disease Hx of Infectious Diseases: None - Tetanus Immunization Tetanus Immunization: Unknown - Reproductive Menopause: Yes - Past Medical History Past Medical History: No Previous - Cardiac Hx Cardiac Disorders: Yes Hx Hypertension: Yes - Pulmonary Hx Respiratory Disorders: No - Neurological Other/Comment: Hx Cerebral Contusion - HEENT Hx HEENT Disorder: No - Renal Hx Renal Disorder: No - Endocrine/Metabolic Hx Endocrine Disorders: Yes Hx Hyperthyroidism: Yes Hx Hypothyroidism: Yes - Hematological/Oncological Hx Blood Disorders: No - Integumentary Hx Dermatological Disorder: No - Musculoskeletal/Rheumatological Hx Musculoskeletal Disorders: Yes Hx Arthritis: Yes Hx Fractures: Yes (ankle and knee) - Gastrointestinal Hx Colitis: Yes Hx Pancreatitis: Yes Other/Comment: Hx diverticulosis. Hx gastroparesis. Hx Volvulus. Hx Crohns. Hx Ischemic Enteritis - Genitourinary/Gynecological Hx Genitourinary Disorders: No Other/Comment: Hx endometriosis - Psychiatric Hx Psychophysiologic Disorder: Yes Hx Anxiety: Yes Hx Bipolar Disorder: Yes Hx Depression: Yes Hx Post Traumatic Stress Disorder: Yes Hx Substance Use: Yes (Hx Opiod overdose) - Surgical History Other/Comment: L knee surgery jul 21, 2017 - Anesthesia Hx Anesthesia: Yes Hx Anesthesia Reactions: No Hx Malignant Hyperthermia: No - Suicidal Assessment Feels Threatened In Home Enviroment: No Family/Social History - Physician Review Nursing Documentation Reviewed: Yes Family/Social History: No Known Family HX Smoking Status: Former Smoker Hx Alcohol Use: No Hx Substance Use: Yes (Hx Opiod overdose) Hx Substance Use Treatment: No Allergies/Home Meds Allergies/Adverse Reactions: Allergies Penicillins Allergy (Intermediate, Verified 07/03/18 01:05) HIVES Home Medications: Home Meds Medication Instructions Recorded Confirmed RX: Amitriptyline HCl 10 mg PO DAILY 06/07/18 07/03/18 RX: Clonazepam [Klonopin] 1 mg PO DAILY PRN 06/07/18 07/03/18 RX: Omeprazole 20 mg PO DAILY 06/07/18 07/03/18 RX: Zaleplon [Sonata] 10 mg PO HS 06/07/18 07/03/18 RX: Ziprasidone HCl [Geodon] 20 mg PO DAILY 06/07/18 07/03/18 Review of Systems - Physician Review All systems were reviewed & negative as marked: Yes - Review of Systems Constitutional: absent: Fevers, Other (Chills) Musculoskeletal: Other (burning pain and swelling to the left knee). absent: Back Pain, Neck Pain Neurological: absent: Headache, Dizziness Physical Exam Vital Signs Reviewed: Yes Vital Signs Temp Pulse Resp BP Pulse Ox 07/31/18 18:08 98.5 F 72 18 103/70 98 Temperature: Afebrile Blood Pressure: Normal Pulse: Regular Respiratory Rate: Normal Appearance: Positive for: Well-Appearing, Non-Toxic, Comfortable Pain Distress: None Mental Status: Positive for: Alert and Oriented X 3 - Systems Exam Head: Present: Atraumatic, Normocephalic Pupils: Present: PERRL Extroacular Muscles: Present: EOMI Conjunctiva: Present: Normal Mouth: Present: Moist Mucous Membranes Neck: Present: Normal Range of Motion Respiratory/Chest: Present: Clear to Auscultation, Good Air Exchange. No: Respiratory Distress, Accessory Muscle Use Cardiovascular: Present: Regular Rate and Rhythm, Normal S1, S2. No: Murmurs Lower Extremity: Present: Normal ROM, Swelling (Some swelling to the medial asp ect of the left knee. Warm to touch. ). No: Edema, Erythema Neurological: Present: GCS=15, CN II-XII Intact, Speech Normal Skin: Present: Warm, Dry, Normal Color. No: Rashes Psychiatric: Present: Alert, Oriented x 3, Normal Insight, Normal Concentration Medical Decision Making ED Course and Treatment: 07/31/18 19:07 Impression: 52 year old female presents complaining of burning pain and swelling to the left knee that began 3 days ago. Patient had a left medial knee meniscus surgery 07/21/18. Plan: -- Toradol -- Left knee with patella 3V X-Ray -- Reassess and disposition Prior Visits: Notes and results from previous visits were reviewed. Progress Notes: Patient given toradol IM for pain. XR done and was unremarkable. Patient does have mild swelling and warmth to L knee, so will treat for cellulitis. Advised outpatient followup with ortho and with PMD. - Lab Interpretations I have reviewed the lab results: Yes - RAD Interpretation Radiology Orders: 07/31/18 18:46 KNEE WITH PATELLA LEFT 3 VIEW [RAD] Stat - Medication Orders Current Medication Orders: Discontinued Medications Ketorolac Tromethamine (Toradol) 60 mg IM STAT STA Stop: 07/31/18 18:46 - Scribe Statement The provider has reviewed the documentation as recorded by the Virgieibcal Whitten Provider Scribe Attestation: All medical record entries made by the Scribe were at my direction and personally dictated by me. I have reviewed the chart and agree that the record accurately reflects my personal performance of the history, physical exam, medical decision making, and the department course for this patient. I have also personally directed, reviewed, and agree with the discharge instructions and disposition. Disposition/Present on Arrival - Present on Arrival Any Indicators Present on Arrival: No History of DVT/PE: No History of Uncontrolled Diabetes: No Urinary Catheter: No History of Decub. Ulcer: No History Surgical Site Infection Following: None - Disposition Have Diagnosis and Disposition been Completed?: Yes Diagnosis: Left medial knee pain, Cellulitis Disposition: HOME/ ROUTINE Disposition Time: 20:00 Condition: STABLE Discharge Instructions (ExitCare): Cellulitis (ED) Additional Instructions: CHARLENE [facility]ILLS, thank you for letting us take care of you today. Your provider was Cynthia Gibson MD and you were treated for (L) KNEE PAIN. The emergency medical care you received today was directed at your acute symptoms. If you were prescribed any medication, please fill it and take as directed. It may take several days for your symptoms to resolve. Return to the Emergency Department if your symptoms worsen, do not improve, or if you have any other problems. Please contact your doctor or call one of the physicians/clinics you have been referred to that are listed on the Patient Visit Information form that is included in your discharge packet. Bring any paperwork you were given at discharge with you along with any medications you are taking to your follow up visit. Our treatment cannot replace ongoing medical care by a primary care provider outside of the emergency department. Thank you for allowing the [facility] team to be part of your care today. If you had an X-Ray or CT scan: A Radiologist will review the ED reading if any change in treatment is needed we will contact you. If you had a blood, urine, or wound culture: It will take several days for the results, if any change in treatment is needed we will contact you. If you had an STI test: It will take 48 hours for the results. Please call after 1 week if you have not heard back. Prescriptions: RX: Doxycycline Hyclate 100 mg PO BID #20 capsule Referrals: Mindy MERCEDES,Clive Butcher APN [Primary Care Provider] - Follow up with primary Forms: [employer] (Slovenian)
[2018-07-31 20:30] VITALS: BP 119/81; PULSE 76; TEMP 98.8; O2SAT 99
--- NOTE | 2018-08-01 11:37 | RAD ---
Date of service: 07/31/2018 PROCEDURE: Left Knee Radiographs. HISTORY: Pain. No history of recent/ related trauma provided COMPARISON: None. FINDINGS: BONES: Normal. No fracture. JOINTS: Normal. No osteoarthritis. JOINT EFFUSION: None. OTHER FINDINGS: None. IMPRESSION: No significant or acute findings to account for/ related to the clinical presentation.
== END 2018-07-31 20:33 | disposition home or self-care (01) ==
LOC: ED 18:07
DX: M25.562 Pain in left knee (principal); L03.116 Cellulitis of left lower limb; I10 Essential (primary) hypertension; E11.43 Type 2 diabetes mellitus with diabetic autonomic (poly)neuropathy; K31.84 Gastroparesis; Z87.891 Personal history of nicotine dependence
CPT/HCPCS: 73562; 96372; 99284; J1885

== ENCOUNTER 2018-08-14 13:41 | Observation (INO) | payer MEDICAID ==
--- NOTE | 2018-08-14 14:17 | ED PDOC ---
Arrival/HPI <Juancho Bush - Last Filed: 08/14/18 19:08> - General Historian: Patient - History of Present Illness Narrative History of Present Illness (Text): patient is a 53 yr old F with PMH Crohn's disease, gastritis, Seizures, depression, migraines who presents due to NBNB vomiting for several days. patient states she has been taking her medications as prescribed. She was unable to keep food down yesterday and currently has a headache. Las normal Bm this morning no blood. She denies any sick contacts, new/ foods and any recent travel. She additionally describes a facial twitch which she noticed this morning that is concerning to her and not something she has had before. She otherwise denies Dizziness, CP, SOB, stool changes, dysuria, and extremity pain/weakness. 08/14/18 14:14 Time/Duration: < week (3-4 days) Symptom Onset: Gradual Symptom Course: Unchanged Quality: Cramping Severity Level: 5 <Dayanna Rodriguez - Last Filed: 08/14/18 19:23> - General Chief Complaint: GI Problem Time Seen by Provider: 08/14/18 14:10 Past Medical History - Provider Review Nursing Documentation Reviewed: Yes - Past History Past History: Non-Contributing - Infectious Disease Hx of Infectious Diseases: None - Tetanus Immunization Tetanus Immunization: Unknown - Past Medical History Past Medical History: No Previous - Cardiac Hx Cardiac Disorders: Yes Hx Hypertension: Yes - Pulmonary Hx Respiratory Disorders: No - Neurological Other/Comment: Hx Cerebral Contusion - HEENT Hx HEENT Disorder: No - Renal Hx Renal Disorder: No - Endocrine/Metabolic Hx Endocrine Disorders: Yes Hx Hyperthyroidism: Yes Hx Hypothyroidism: Yes - Hematological/Oncological Hx Blood Disorders: No - Integumentary Hx Dermatological Disorder: No - Musculoskeletal/Rheumatological Hx Musculoskeletal Disorders: Yes Hx Arthritis: Yes Hx Fractures: Yes (ankle and knee) - Gastrointestinal Hx Colitis: Yes Hx Pancreatitis: Yes Other/Comment: Hx diverticulosis. Hx gastroparesis. Hx Volvulus. Hx Crohns. Hx Ischemic Enteritis - Genitourinary/Gynecological Hx Genitourinary Disorders: No Other/Comment: Hx endometriosis - Psychiatric Hx Psychophysiologic Disorder: Yes Hx Anxiety: Yes Hx Bipolar Disorder: Yes Hx Depression: Yes Hx Post Traumatic Stress Disorder: Yes Hx Substance Use: Yes (Hx Opiod overdose) - Surgical History Other/Comment: L knee surgery jul 21, 2017 - Anesthesia Hx Anesthesia: Yes Hx Anesthesia Reactions: No Hx Malignant Hyperthermia: No - Suicidal Assessment Feels Threatened In Home Enviroment: No <Dayanna Rodriguez - Last Filed: 08/14/18 19:23> Family/Social History - Physician Review Nursing Documentation Reviewed: Yes Family/Social History: Unknown Family HX Smoking Status: Former Smoker Hx Alcohol Use: No Hx Substance Use: Yes (Hx Opiod overdose) Hx Substance Use Treatment: No <Dayanna Rodriguez - Last Filed: 08/14/18 19:23> Allergies/Home Meds <Juancho Bush - Last Filed: 08/14/18 19:08> <Dayanna Rodriguez - Last Filed: 08/14/18 19:23> Allergies/Adverse Reactions: Allergies Penicillins Allergy (Intermediate, Verified 07/03/18 01:05) HIVES Home Medications: Home Meds Medication Instructions Recorded Confirmed Amitriptyline HCl 10 mg PO DAILY 06/07/18 08/14/18 Clonazepam [Klonopin] 1 mg PO DAILY PRN 06/07/18 08/14/18 Omeprazole 20 mg PO DAILY 06/07/18 08/14/18 Zaleplon [Sonata] 10 mg PO HS 06/07/18 08/14/18 Ziprasidone HCl [Geodon] 20 mg PO DAILY 06/07/18 08/14/18 Review of Systems - Physician Review All systems were reviewed & negative as marked: Yes - Review of Systems Constitutional: Normal Respiratory: absent: SOB, Cough Cardiovascular: absent: Chest Pain Gastrointestinal: Abdominal Pain, Nausea, Vomiting. absent: Constipation, Diarrhea, Hematochezia, Hematemesis Genitourinary Female: absent: Dysuria Musculoskeletal: absent: Arthralgias Skin: absent: Rash, Skin Lesions Neurological: Headache, Other (mouth twitch). absent: Dizziness, Focal Weakness, Speech Changes, Facial Droop Endocrine: absent: Diaphoresis <Dayanna Rodriguez - Last Filed: 08/14/18 19:23> Physical Exam Vital Signs Temp Pulse Resp BP Pulse Ox 08/14/18 15:14 99 F 106 H 19 165/107 H 97 <Juancho Bush - Last Filed: 08/14/18 19:08> Temperature: Afebrile Blood Pressure: Hypertensive Pulse: Tachycardic Respiratory Rate: Normal Appearance: Positive for: Well-Appearing, Non-Toxic, Comfortable Pain Distress: Mild Mental Status: Positive for: Alert and Oriented X 3 - Systems Exam Head: Present: Atraumatic, Normocephalic Extroacular Muscles: Present: EOMI Mouth: Present: Moist Mucous Membranes, Other (constant twitch of the muscles surrounding the mouth) Neck: Present: Normal Range of Motion Respiratory/Chest: Present: Clear to Auscultation, Good Air Exchange. No: Respiratory Distress, Accessory Muscle Use, Wheezes, Rales, Rhonchi Cardiovascular: Present: Normal S1, S2. No: Murmurs Abdomen: No: Tenderness, Distention, Peritoneal Signs, Guarding Upper Extremity: Present: Normal Inspection. No: Cyanosis, Edema Lower Extremity: Present: Normal Inspection. No: Edema, CALF TENDERNESS, NORMAL PULSES Neurological: Present: GCS=15, CN II-XII Intact, Speech Normal, Other (facial twitching and resting tremor of the hands) Skin: Present: Warm, Dry, Normal Color. No: Rashes Psychiatric: Present: Alert, Oriented x 3, Normal Insight, Normal Concentration <Dayanna Rodriguez - Last Filed: 08/14/18 19:23> Medical Decision Making ED Course and Treatment: 08/14/18 19:[address] norwood to the hospitalist service - Lab Interpretations Lab Results: Total Bilirubin 0.5 mg/dL (0.2-1.3) 08/14/18 14:56 AST 26 U/L (14-36) 08/14/18 14:56 ALT 43 U/L (7-56) 08/14/18 14:56 Alkaline Phosphatase 79 U/L (38-126) 08/14/18 14:56 Total Protein 8.1 g/dL (5.8-8.3) 08/14/18 14:56 Albumin 4.7 g/dL (3.0-4.8) 08/14/18 14:56 Globulin 3.4 gm/dL 08/14/18 14:56 Albumin/Globulin Ratio 1.4 (1.1-1.8) 08/14/18 14:56 - Medication Orders Current Medication Orders: Discontinued Medications Clonazepam (Klonopin) 1 mg PO STAT STA; Protocol Stop: 08/14/18 16:22 Last Admin: 08/14/18 17:18 Dose: 1 mg Metoclopramide HCl (Reglan) 10 mg PO STAT STA Stop: 08/14/18 15:30 Last Admin: 08/14/18 15:49 Dose: 10 mg <Juancho Bush - Last Filed: 08/14/18 19:08> ED Course and Treatment: Impression: 53 yr old Female with PMH Migraines, depression, gastritis, Crohns disease and chronic pain presents with 3-4 days of persistent vomiting and new facial twitch plan: CBC CMP magnesium EKG zofran pending normal QTc 08/14/18 14:24 Pt states she was feeling anxious and warm, is requesting klonopin, given cool towel, Klonopin prescription in records indicates Once daily PRN, explained to patient that we will be unable to give her more klonopin at this time 08/14/18 14:0 Spoke to patient regarding EKG results, pt asking if she can have a CT scan or MRI, explained to patient why these tests are not indicated at this time and that we will wait for blood work results before moving forward, informed patient of plan to give reglan 08/14/18 15:32 reviewed [facility] aware with Dr. Bush which revealed that patient should have 6 pills of Klonopin left rather than having taken her last one this morning. Discussed with patient the importance of taking her medication as prescribed. Discussed with patient lab results and plan going forward. patient verbalized understanding and expressed agreement with plan. 08/14/18 16:[address] Kevin Neurologist, Dr. kevin would like patient admitted due to facial twitching and tremor of unknown cause continuing despite Klonopin, hospitalist called for admission 08/14/18 18:40 Dr. Norwood came to assess patient for admission, patien accepted to the hospitalist service and will be admitted to med/ surg 08/14/18 19:20 - Lab Interpretations Lab Results: 08/14/18 14:56 08/14/18 14:56 Lab Results 08/14/18 14:56: Sodium 139, Potassium 4.3, Chloride 108 H, Carbon Dioxide 23, Anion Gap 13, BUN 18, Creatinine 0.7, Est GFR ( Amer) > 60, Est GFR (Non- Af Amer) > 60, Random Glucose 150 H, Calcium 9.2, Magnesium 1.8, Total Bilirubin 0.5, AST 26, ALT 43, Alkaline Phosphatase 79, Total Protein 8.1, Albumin 4.7, Globulin 3.4, Albumin/Globulin Ratio 1.4 08/14/18 14:56: WBC 6.5, RBC 4.04, Hgb 10.5 L, Hct 32.3 L, MCV 80.0 D, MCH 26.0, MCHC 32.5, RDW 15.9 H, Plt Count 315, MPV 9.3, Neut % (Auto) 65.7, Lymph % (Auto) 30.2, [place] % (Auto) 3.4, Eos % (Auto) 0.5 L, Baso % (Auto) 0.2, Lymph # (Auto) 2.0, [place] # (Auto) 0.2, Eos # (Auto) 0.0, Baso # (Auto) 0.01, Absolute Neuts (auto) 4.29 <Dayanna Rodriguez - Last Filed: 08/14/18 19:23> Disposition/Present on Arrival <Juancho Bush - Last Filed: 08/14/18 19:08> - Present on Arrival Any Indicators Present on Arrival: No History of DVT/PE: No History of Uncontrolled Diabetes: No Urinary Catheter: No History of Decub. Ulcer: No History Surgical Site Infection Following: None - Disposition Have Diagnosis and Disposition been Completed?: Yes Disposition Time: 18:55 Patient Plan: Admission <Dayanna Rodriguez - Last Filed: 08/14/18 19:23> - Disposition Diagnosis: Facial twitching Disposition: HOSPITALIZED Patient Problems: Current Active Problems Problem Status Onset Facial twitching Acute Condition: STABLE Forms: [employer] (Slovak)
[2018-08-14 15:24] LABS: BASO # 0.01 K/mm3 (0.0-2.0); BASO % 0.2 % (0.0-3.0); EOS % 0.5 % (1.5-5.0); HEMOGLOBIN 10.5 g/dL (12.0-16.0); LYMPH % 30.2 % (22.0-35.0); MEAN CORPUSCULAR HGB CONC 32.5 g/dl (31.0-37.0); MEAN PLATELET VOLUME 9.3 fl (7.0-11.0); MONO # 0.2 (0.1-0.6); MONO % 3.4 % (1.0-6.0); RBC 4.04 10^6/uL (3.5-6.1); RED CELL DISTRIBUTION WIDTH 15.9 % (11.5-14.5); WHITE BLOOD COUNT 6.5 10^3/uL (4.5-11.0)
[2018-08-14 15:34] LABS: ALB/GLOB RATIO 1.4 (1.1-1.8); ALBUMIN 4.7 g/dL (3.0-4.8); ALT/SGPT 43 U/L (7-56); AST/SGOT 26 U/L (14-36); BLOOD UREA NITROGEN 18 mg/dL (7-21); CALCIUM 9.2 mg/dL (8.4-10.5); GFR NON-AFRICAN AMERICAN > 60
[2018-08-14] MEDS ORDERED: oxyCODONE 5 mg Immediate Release Tab PO PRN (20:10)
--- NOTE | 2018-08-14 20:10 | CP.PCM.HP ---
<Sweta Smiley - Last Filed: 08/14/18 21:01> History of Present Illness - History of Present Illness History of Present Illness: Sweta Smiley, PGY-1 H&P Note for Dr. Norwood CC: Facial twich and vomiting x 2 days Pt is a 53 yo F with pmhx Chrons dz, gastritis, seizures, depression, migraines, HTN, anxiety who presents for nausea x 2 days and facial twitch. She states that her nausea started on Wednesday and she has had multiple bouts of emesis that is non-bloody, but is billious per pt. She denies eating outside of her house or trying new food, denies any recent travel or sick contacts. She states that her facial twitching started 2 days ago as well but she states that she has no rec ent trauma or illness. Pt does admit to being much more anxious lately than she has been in the past. She states that sometimes her twitching is associated with tingling but no numbness. She states that the tingling lasts for about 30secs- 1min and is self resolving. At this time she denies fevers, chills, headache, lightheadedness, dizziness, numbness, tingling, chest pain, SOB, cough, abd pain, constipation/diarrhea, dysuria or hematuria. Pt admits to Anxiety, nausea, vomiting and palpitations (stating she feels her heart is beating fast). Pmhx: Chrons dz, gastritis, seizures, depression, migraines, HTN, anxiety Pshx: L knee replacement, R ankle surgery Meds: Oxy 5 TID PRN, keppra 500BID, [id number], lexapro 20qd, Fioricet 1 tab q8PRN All: PCN - Hives Social: Quit smoking 1 yr ago: Previously smoked 1/2ppd x 15yrs, denies etoh or illicit drug use Fam: Non-contributory PMD:Dr. Josh Lacey Pharm: [facility] Present on Admission - Present on Admission Any Indicators Present on Admission: No Review of Systems - Review of Systems Review of Systems: 12 point ROS reviewed and negative except noted in HPI above. Past Patient History - Infectious Disease Hx of Infectious Diseases: None - Tetanus Immunizations Tetanus Immunization: Unknown - Past Medical History & Family History Past Medical History?: Yes - Past Social History Smoking Status: Former Smoker - CARDIAC Hx Cardiac Disorders: Yes Hx Hypertension: Yes - PULMONARY Hx Respiratory Disorders: No - NEUROLOGICAL Other/Comment: Hx Cerebral Contusion - HEENT Hx HEENT Problems: No - RENAL Hx Chronic Kidney Disease: No - ENDOCRINE/METABOLIC Hx Endocrine Disorders: Yes Hx Hyperthyroidism: Yes Hx Hypothyroidism: Yes - HEMATOLOGICAL/ONCOLOGICAL Hx Blood Disorders: No - INTEGUMENTARY Hx Dermatological Problems: No - MUSCULOSKELETAL/RHEUMATOLOGICAL Hx Musculoskeletal Disorders: Yes Hx Arthritis: Yes Hx Fractures: Yes (ankle and knee) - GASTROINTESTINAL Hx Colitis: Yes Hx Pancreatitis: Yes Other/Comment: Hx diverticulosis. Hx gastroparesis. Hx Volvulus. Hx Crohns. Hx Ischemic Enteritis - GENITOURINARY/GYNECOLOGICAL Hx Genitourinary Disorders: No Other/Comment: Hx endometriosis - PSYCHIATRIC Hx Psychophysiologic Disorder: Yes Hx Anxiety: Yes Hx Bipolar Disorder: Yes Hx Depression: Yes Hx Post Traumatic Stress Disorder: Yes Hx Substance Use: Yes (Hx Opiod overdose) - SURGICAL HISTORY Other/Comment: L knee surgery jul 21, 2017 - ANESTHESIA Hx Anesthesia: Yes Hx Anesthesia Reactions: No Hx Malignant Hyperthermia: No Meds Allergies/Adverse Reactions: Allergies Allergy/AdvReac Type Severity Reaction Status Date / Time Penicillins Allergy Intermediate HIVES Verified 07/03/18 01:05 Physical Exam - Constitutional Appears: Non-toxic, No Acute Distress - Head Exam Head Exam: ATRAUMATIC, NORMAL INSPECTION, NORMOCEPHALIC Additional comments: Pt is noted to be having involunatary facial twitching and jaw movements. - Eye Exam Eye Exam: EOMI, Normal appearance, PERRL - Respiratory Exam Respiratory Exam: Clear to Auscultation Bilateral, NORMAL BREATHING PATTERN. absent: Accessory Muscle Use, Rales, Rhonchi, Wheezes, Respiratory Distress, Stridor - Cardiovascular Exam Cardiovascular Exam: Tachycardia, +S1, +S2. absent: Gallop, Rubs - GI/Abdominal Exam GI & Abdominal Exam: Normal Bowel Sounds, Soft. absent: Distended, Firm, Guarding, Tenderness - Extremities Exam Extremities exam: Positive for: normal inspection. Negative for: calf tenderness, pedal edema - Back Exam Back exam: NORMAL INSPECTION. absent: CVA tenderness (L), CVA tenderness (R) - Neurological Exam Neurological exam: Alert, CN II-XII Intact, Oriented x3 Additional comments: Pt has 5/5 muscle strength in all limbs. There is no extinction noted on exam or slurred speech. Pt is not noted to have pronator drift at this time. - Psychiatric Exam Psychiatric exam: Anxious - Skin Skin Exam: Dry, Normal Color, Warm Results - Vital Signs Recent Vital Signs: Last Vital Signs Temp 99 F 08/14/18 15:14 Pulse 106 H 08/14/18 15:14 Resp 19 08/14/18 15:14 BP 165/107 H 08/14/18 15:14 Pulse Ox 97 08/14/18 15:14 - Labs Result Diagrams: 08/14/18 14:56 08/14/18 14:56 Labs: Laboratory Results - last 24 hr 08/14/18 08/14/18 14:56 14:56 WBC 6.5 RBC 4.04 Hgb 10.5 L Hct 32.3 L MCV 80.0 D MCH 26.0 MCHC 32.5 RDW 15.9 H Plt Count 315 MPV 9.3 Neut % (Auto) 65.7 Lymph % (Auto) 30.2 Calhoun % (Auto) 3.4 Eos % (Auto) 0.5 L Baso % (Auto) 0.2 Lymph # (Auto) 2.0 Calhoun # (Auto) 0.2 Eos # (Auto) 0.0 Baso # (Auto) 0.01 Absolute Neuts (auto) 4.29 Sodium 139 Potassium 4.3 Chloride 108 H Carbon Dioxide 23 Anion Gap 13 BUN 18 Creatinine 0.7 Est GFR ( Amer) > 60 Est GFR (Non-Af Amer) > 60 Random Glucose 150 H Calcium 9.2 Magnesium 1.8 Total Bilirubin 0.5 AST 26 ALT 43 Alkaline Phosphatase 79 Total Protein 8.1 Albumin 4.7 Globulin 3.4 Albumin/Globulin Ratio 1.4 Assessment & Plan - Assessment and Plan (Free Text) Assessment: Pt is a 53 yo F with pmhx Chrons dz, gastritis, seizures, depression, migraines, HTN, anxiety who presents for nausea x 2 days and facial twitch. Plan: 1) Facial Twitch: - Likely 2/2 anxiety - Valium 1mg once - to see if it improves twitching - TSH - B12 - Neuro consulted, rec MRI Brain 2) Vomiting: - Abd is soft, non-tender - Gentle hydration: NS@75ml/hr - Phenergen PRN for nausea 3) Hx of HTN: - likely 2/2 stress - will cont to monitor for now 4) Anemia: - Pts hbg is at baseline from previous admissions. - Fe++, TIBC, retic, transferrin PPx: DVT: Lovenox GI: protonix Case seen and discussed with Dr. Enma Smiley, PGY-1 <Elise Norwood - Last Filed: 08/15/18 06:13> Results - Vital Signs Recent Vital Signs: Last Vital Signs Temp 99 F 08/14/18 20:18 Pulse 105 H 08/14/18 22:41 Resp 20 08/14/18 22:41 BP 176/97 H 08/14/18 22:41 Pulse Ox 95 08/14/18 22:41 - Labs Result Diagrams: 08/14/18 14:56 08/14/18 14:56 Labs: Laboratory Results - last 24 hr 08/14/18 08/14/18 08/14/18 14:56 14:56 14:56 WBC 6.5 RBC 4.04 Hgb 10.5 L Hct 32.3 L MCV 80.0 D MCH 26.0 MCHC 32.5 RDW 15.9 H Plt Count 315 MPV 9.3 Neut % (Auto) 65.7 Lymph % (Auto) 30.2 Calhoun % (Auto) 3.4 Eos % (Auto) 0.5 L Baso % (Auto) 0.2 Lymph # (Auto) 2.0 Calhoun # (Auto) 0.2 Eos # (Auto) 0.0 Baso # (Auto) 0.01 Absolute Neuts (auto) 4.29 Retic Count 1.36 Sodium 139 Potassium 4.3 Chloride 108 H Carbon Dioxide 23 Anion Gap 13 BUN 18 Creatinine 0.7 Est GFR ( Amer) > 60 Est GFR (Non-Af Amer) > 60 Random Glucose 150 H Calcium 9.2 Magnesium 1.8 Iron TIBC % Saturation Total Bilirubin 0.5 AST 26 ALT 43 Alkaline Phosphatase 79 Total Protein 8.1 Albumin 4.7 Globulin 3.4 Albumin/Globulin Ratio 1.4 08/14/18 14:57 WBC RBC Hgb Hct MCV MCH MCHC RDW Plt Count MPV Neut % (Auto) Lymph % (Auto) Calhoun % (Auto) Eos % (Auto) Baso % (Auto) Lymph # (Auto) Calhoun # (Auto) Eos # (Auto) Baso # (Auto) Absolute Neuts (auto) Retic Count Sodium Potassium Chloride Carbon Dioxide Anion Gap BUN Creatinine Est GFR ( Amer) Est GFR (Non-Af Amer) Random Glucose Calcium Magnesium Iron 41 L TIBC 493 % Saturation 8 L Total Bilirubin AST ALT Alkaline Phosphatase Total Protein Albumin Globulin Albumin/Globulin Ratio Attending/Attestation - Attestation I have personally seen and examined this patient.: Yes I have fully participated in the care of the patient.: Yes I have reviewed all pertinent clinical information: Yes
[2018-08-14] MEDS ORDERED: Sodium Chloride 0.9% 1,000 ML IV SCH ×2 (20:30→20:36)
[2018-08-14 21:22] VITALS: BMI 22.4
[2018-08-14 21:39] LABS: IRON 41 ug/dL (45-180)
[2018-08-14 21:48] LABS: % IRON SATURATION 8 % (20-55); TOTAL IRON BINDING CAPACITY 493 ug/dL (265-497)
[2018-08-14 22:42] VITALS: PULSE 105
[2018-08-15 06:44] LABS: BASO # 0.03 K/mm3 (0.0-2.0); BASO % 0.4 % (0.0-3.0); EOS % 0.1 % (1.5-5.0); HEMOGLOBIN 10.1 g/dL (12.0-16.0); LYMPH # 2.1 (1.2-3.4); LYMPH % 30.6 % (22.0-35.0); MEAN CELL VOLUME 80.2 fl (80.0-105.0); MEAN CORPUSCULAR HGB CONC 31.2 g/dl (31.0-37.0); MEAN PLATELET VOLUME 9.1 fl (7.0-11.0); MONO # 0.6 (0.1-0.6); MONO % 9.3 % (1.0-6.0); RBC 4.04 10^6/uL (3.5-6.1); WHITE BLOOD COUNT 6.8 10^3/uL (4.5-11.0)
[2018-08-15 07:00] LABS: ALB/GLOB RATIO 1.4 (1.1-1.8); ALBUMIN 4.5 g/dL (3.0-4.8); ALT/SGPT 40 U/L (7-56); AST/SGOT 37 U/L (14-36); BLOOD UREA NITROGEN 16 mg/dL (7-21); CALCIUM 8.7 mg/dL (8.4-10.5); GFR NON-AFRICAN AMERICAN > 60
[2018-08-15 08:37] VITALS: BP 149/100; RESP 22; TEMP 97.9; O2SAT 98
[2018-08-15] MEDS ORDERED: Enoxaparin 40 mg Syringe SC SCH (10:00)
--- NOTE | 2018-08-15 11:48 | CP.PCM.DIS ---
<Sweta Smiley - Last Filed: 08/15/18 12:13> Provider - Provider Date of Admission: 08/14/18 19:19 Attending physician: Loretta Chan MD Consults: 08/15/18 07:09 Physician Consult Routine Comment: Consulting Provider: Rakesh Broussard Consulting Physician: aRkesh Broussard Reason for Consult: facial twitch Time Spent in preparation of Discharge (in minutes): 45 Diagnosis - Discharge Diagnosis (1) Facial twitching Status: Acute (2) Nausea & vomiting Status: Acute Hospital Course - Lab Results Lab Results: Most Recent Lab Values WBC 6.8 10^3/uL (4.5-11.0) 08/15/18 06:00 RBC 4.04 10^6/uL (3.5-6.1) 08/15/18 06:00 Hgb 10.1 g/dL (12.0-16.0) L 08/15/18 06:00 Hct 32.4 % (36.0-48.0) L 08/15/18 06:00 MCV 80.2 fl (80.0-105.0) 08/15/18 06:00 MCH 25.0 pg (25.0-35.0) 08/15/18 06:00 MCHC 31.2 g/dl (31.0-37.0) 08/15/18 06:00 RDW 16.0 % (11.5-14.5) H 08/15/18 06:00 Plt Count 311 10^3/uL (120.0-450.0) 08/15/18 06:00 MPV 9.1 fl (7.0-11.0) 08/15/18 06:00 Neut % (Auto) 59.6 % (50.0-68.0) 08/15/18 06:00 Lymph % (Auto) 30.6 % (22.0-35.0) 08/15/18 06:00 Sharp % (Auto) 9.3 % (1.0-6.0) H 08/15/18 06:00 Eos % (Auto) 0.1 % (1.5-5.0) L 08/15/18 06:00 Baso % (Auto) 0.4 % (0.0-3.0) 08/15/18 06:00 Lymph # (Auto) 2.1 (1.2-3.4) 08/15/18 06:00 Sharp # (Auto) 0.6 (0.1-0.6) 08/15/18 06:00 Eos # (Auto) 0.0 (0.0-0.7) 08/15/18 06:00 Baso # (Auto) 0.03 K/mm3 (0.0-2.0) 08/15/18 06:00 Absolute Neuts (auto) 4.04 (1.4-6.5) 08/15/18 06:00 Retic Count 1.36 % (0.5-1.5) 08/14/18 14:56 Sodium 139 mmol/L (132-148) 08/15/18 06:00 Potassium 3.8 mmol/L (3.6-5.0) 08/15/18 06:00 Chloride 106 mmol/L (98-107) 08/15/18 06:00 Carbon Dioxide 25 mmol/L (21-33) 08/15/18 06:00 Anion Gap 12 (10-20) 08/15/18 06:00 BUN 16 mg/dL (7-21) 08/15/18 06:00 Creatinine 0.7 mg/dl (0.7-1.2) 08/15/18 06:00 Est GFR ( Amer) > 60 08/15/18 06:00 Est GFR (Non-Af Amer) > 60 08/15/18 06:00 Random Glucose 146 mg/dL (70-110) H 08/15/18 06:00 Calcium 8.7 mg/dL (8.4-10.5) 08/15/18 06:00 Magnesium 1.8 mg/dL (1.7-2.2) 08/14/18 14:56 Iron 41 ug/dL (45-180) L 08/14/18 14:57 TIBC 493 ug/dL (265-497) 08/14/18 14:57 % Saturation 8 % (20-55) L 08/14/18 14:57 Total Bilirubin 0.7 mg/dL (0.2-1.3) 08/15/18 06:00 AST 37 U/L (14-36) H D 08/15/18 06:00 ALT 40 U/L (7-56) 08/15/18 06:00 Alkaline Phosphatase 72 U/L (38-126) 08/15/18 06:00 Total Protein 7.7 g/dL (5.8-8.3) 08/15/18 06:00 Albumin 4.5 g/dL (3.0-4.8) 08/15/18 06:00 Globulin 3.1 gm/dL 08/15/18 06:00 Albumin/Globulin Ratio 1.4 (1.1-1.8) 08/15/18 06:00 TSH 3rd Generation 0.99 mIU/mL (0.46-4.68) 08/15/18 06:00 Alcohol, Quantitative < 10 mg/dL (0-10) 08/15/18 07:10 - Hospital Course Hospital Course: Upon Admission: Pt is a 53 yo F with pmhx Chrons dz, gastritis, seizures, depression, migraines, HTN, anxiety who presents for nausea x 2 days and facial twitch. She states that her nausea started on Wednesday and she has had multiple bouts of emesis that is non-bloody, but is billious per pt. She denies eating outside of her house or trying new food, denies any recent travel or sick contacts. She states that her facial twitching started 2 days ago as well but she states that she has no recent trauma or illness. Pt does admit to being much more anxious lately than she has been in the past. She states that sometimes her twitching is associated with tingling but no numbness. She states that the tingling lasts for about 30secs-1min and is self resolving. At this time she denies fevers, chills, headache, lightheadedness, dizziness, numbness, tingling, chest pain, SOB, cough, abd pain, constipation/diarrhea, dysuria or hematuria. Pt admits to Anxiety, nausea, vomiting and palpitations (stating she feels her heart is beating fast). Hospital Course: In ED, neurologist was called and pt was scheduled for Brain MRI per neuro. Pt was seen the next AM and facial twitch was noted to be improved. Overnight the pt had complaints of RLS and pt given lyrica. Pt this morning left AMA before medical team could round on the pt. The risks and benefits of signing out AMA were explained to the pt. She was informed that her medical condition could worsen, leading to permanent disability or and that by staying she would be evaluated by the specialists, like neurology and others should the need arise. Pt again stated that she would like to sign out AMA. Discharge Exam - Head Exam Head Exam: ATRAUMATIC, NORMAL INSPECTION, NORMOCEPHALIC Additional comments: Facial twitching has improved. - Eye Exam Eye Exam: EOMI, Normal appearance, PERRL - Respiratory Exam Respiratory Exam: Clear to PA & Lateral, NORMAL BREATHING PATTERN, UNREMARKABLE. absent: Accessory Muscle Use, Decreased Breath Sounds, Rales, Rhonchi, Wheezes, Respiratory Distress, Stridor - Cardiovascular Exam Cardiovascular Exam: RRR, +S1, +S2. absent: Gallop, Rubs - GI/Abdominal Exam GI & Abdominal Exam: Normal Bowel Sounds, Soft, Unremarkable. absent: Distended, Firm, Guarding, Tenderness - Extremities Exam Extremities exam: normal capillary refill, normal inspection, pedal pulses present - Back Exam Back exam: NORMAL INSPECTION. absent: CVA tenderness (L), CVA tenderness (R) - Neurological Exam Neurological exam: Alert, CN II-XII Intact, Oriented x3 Additional comments: Pt has 5/5 muscle strength in all limbs. There is no extinction noted on exam or slurred speech. Pt is not noted to have pronator drift at this time. - Psychiatric Exam Psychiatric exam: Anxious - Skin Skin Exam: Dry, Intact, Normal Color Discharge Plan - Follow Up Plan Condition: GUARDED Disposition: AGAINST MEDICAL ADVICE <Darrell Gatica - Last Filed: 08/15/18 13:46> Provider - Provider Date of Admission: 08/14/18 19:19 Attending physician: Loretta Chan MD Consults: 08/15/18 07:09 Physician Consult Routine Comment: Consulting Provider: Rakesh Broussard Consulting Physician: Rakesh Broussard Reason for Consult: facial twitch Hospital Course - Lab Results Lab Results: Most Recent Lab Values WBC 6.8 10^3/uL (4.5-11.0) 08/15/18 06:00 RBC 4.04 10^6/uL (3.5-6.1) 08/15/18 06:00 Hgb 10.1 g/dL (12.0-16.0) L 08/15/18 06:00 Hct 32.4 % (36.0-48.0) L 08/15/18 06:00 MCV 80.2 fl (80.0-105.0) 08/15/18 06:00 MCH 25.0 pg (25.0-35.0) 08/15/18 06:00 MCHC 31.2 g/dl (31.0-37.0) 08/15/18 06:00 RDW 16.0 % (11.5-14.5) H 08/15/18 06:00 Plt Count 311 10^3/uL (120.0-450.0) 08/15/18 06:00 MPV 9.1 fl (7.0-11.0) 08/15/18 06:00 Neut % (Auto) 59.6 % (50.0-68.0) 08/15/18 06:00 Lymph % (Auto) 30.6 % (22.0-35.0) 08/15/18 06:00 Sharp % (Auto) 9.3 % (1.0-6.0) H 08/15/18 06:00 Eos % (Auto) 0.1 % (1.5-5.0) L 08/15/18 06:00 Baso % (Auto) 0.4 % (0.0-3.0) 08/15/18 06:00 Lymph # (Auto) 2.1 (1.2-3.4) 08/15/18 06:00 Sharp # (Auto) 0.6 (0.1-0.6) 08/15/18 06:00 Eos # (Auto) 0.0 (0.0-0.7) 08/15/18 06:00 Baso # (Auto) 0.03 K/mm3 (0.0-2.0) 08/15/18 06:00 Absolute Neuts (auto) 4.04 (1.4-6.5) 08/15/18 06:00 Retic Count 1.36 % (0.5-1.5) 08/14/18 14:56 Sodium 139 mmol/L (132-148) 08/15/18 06:00 Potassium 3.8 mmol/L (3.6-5.0) 08/15/18 06:00 Chloride 106 mmol/L (98-107) 08/15/18 06:00 Carbon Dioxide 25 mmol/L (21-33) 08/15/18 06:00 Anion Gap 12 (10-20) 08/15/18 06:00 BUN 16 mg/dL (7-21) 08/15/18 06:00 Creatinine 0.7 mg/dl (0.7-1.2) 08/15/18 06:00 Est GFR ( Amer) > 60 08/15/18 06:00 Est GFR (Non-Af Amer) > 60 08/15/18 06:00 Random Glucose 146 mg/dL (70-110) H 08/15/18 06:00 Calcium 8.7 mg/dL (8.4-10.5) 08/15/18 06:00 Magnesium 1.8 mg/dL (1.7-2.2) 08/14/18 14:56 Iron 41 ug/dL (45-180) L 08/14/18 14:57 TIBC 493 ug/dL (265-497) 08/14/18 14:57 % Saturation 8 % (20-55) L 08/14/18 14:57 Transferrin 382.84 mg/dL (206-381) H 08/15/18 06:00 Total Bilirubin 0.7 mg/dL (0.2-1.3) 08/15/18 06:00 AST 37 U/L (14-36) H D 08/15/18 06:00 ALT 40 U/L (7-56) 08/15/18 06:00 Alkaline Phosphatase 72 U/L (38-126) 08/15/18 06:00 Total Protein 7.7 g/dL (5.8-8.3) 08/15/18 06:00 Albumin 4.5 g/dL (3.0-4.8) 08/15/18 06:00 Globulin 3.1 gm/dL 08/15/18 06:00 Albumin/Globulin Ratio 1.4 (1.1-1.8) 08/15/18 06:00 Vitamin B12 214 pg/mL (239-931) L 08/14/18 14:56 TSH 3rd Generation 0.99 mIU/mL (0.46-4.68) 08/15/18 06:00 Alcohol, Quantitative < 10 mg/dL (0-10) 08/15/18 07:10 Attending/Attestation - Attestation I have reviewed all pertinent clinical information, including history, physical exam and plan: Yes Notes (Text): 08/15/18 13:46 Patient left against medical advice early this morning prior to rounds.
--- NOTE | 2018-08-15 12:36 | CARD ---
APPROVED REPORT Date of service: 08/14/2018 EKG Measurement Heart [id number] [id number] <Conclusion> Sinus tachycardia Incomplete right bundle branch block Borderline ECG
[2018-08-15 12:43] LABS: TRANSFERRIN 382.84 mg/dL (206-381)
== END 2018-08-15 10:12 | disposition left against medical advice (07) ==
LOC: ED 13:41 → ERH 19:19 → 3RNO 20:57
PROVIDERS: ADMIT Internal Medicine; ATTEND Internal Medicine
DX: R25.3 Fasciculation (principal); K50.90 Crohn's disease, unspecified, without complications; I10 Essential (primary) hypertension; F32.9 Major depressive disorder, single episode, unspecified; F43.10 Post-traumatic stress disorder, unspecified; Z87.891 Personal history of nicotine dependence; Z96.652 Presence of left artificial knee joint
CPT/HCPCS: 36415; 80053; 80320; 82607; 83735; 84443; 84466; 85025; 85044; 93005; 99285; G0378; J7030

== ENCOUNTER 2018-08-18 17:35 | Emergency (ER) | payer MEDICAID ==
[2018-08-18 17:46] VITALS: BMI 22.2
[2018-08-18 18:05] VITALS: RESP 18; TEMP 97.6; O2SAT 96
--- NOTE | 2018-08-18 18:33 | ED PDOC ---
Arrival/HPI - General Chief Complaint: Substance Abuse Time Seen by Provider: 08/18/18 17:37 Historian: Patient, Family - History of Present Illness Narrative History of Present Illness (Text): 08/18/18 17:37 Patient is a 53 year old female with past medical history of Crohn's disease, gastritis, seizures, depression, migraines, HTN, and anxiety who presents to the emergency department s/p overdose [employer]. Patient states visiting her pain management doctor who refilled her narcotic pain medication. Patient reports taking oxycodon and klonopin at home when family found patient with altered mental status. EMS was subsequently called by family. Upon EMS arrival patient was found to be altered, and was given .4 mg Narcan IV on-site with immediate improvement to symptoms. Upon arrival to the Emergency department, patient was awake, alert, and in no acute distress. Patient denies any fevers, chills, headache, dizziness, chest pain, shortness of breath, dyspnea on exertion, cough, abdominal pain, nausea, vomiting, diarrhea, back pain, neck pain, or any other complaints. Time/Duration: Prior to Arrival Symptom Onset: Sudden Symptom Course: Resolved Activities at Onset: Light Context: Home Past Medical History - Provider Review Nursing Documentation Reviewed: Yes - Past History Past History: Non-Contributing - Infectious Disease Hx of Infectious Diseases: None - Tetanus Immunization Tetanus Immunization: Unknown - Reproductive Menopause: Yes - Past Medical History Past Medical History: No Previous - Cardiac Hx Cardiac Disorders: Yes Hx Hypertension: Yes - Pulmonary Hx Respiratory Disorders: No - Neurological Hx Neurological Disorder: Yes Hx Migraine: Yes Hx Seizures: Yes Other/Comment: Hx Cerebral Contusion - HEENT Hx HEENT Disorder: No - Renal Hx Renal Disorder: No - Endocrine/Metabolic Hx Endocrine Disorders: No - Hematological/Oncological Hx Blood Disorders: No - Integumentary Hx Dermatological Disorder: No - Musculoskeletal/Rheumatological Hx Musculoskeletal Disorders: Yes Hx Arthritis: Yes Hx Falls: Yes Hx Fractures: Yes (ankle and knee) - Gastrointestinal Hx Gastrointestinal Disorders: Yes Hx Crohn's Disease: Yes Hx Diverticulitis: Yes Hx Pancreatitis: Yes Other/Comment: Hx gastroparesis. Hx Volvulus. Hx Ischemic Enteritis - Genitourinary/Gynecological Hx Genitourinary Disorders: Yes Other/Comment: Hx endometriosis - Psychiatric Hx Psychophysiologic Disorder: Yes Hx Anxiety: Yes Hx Bipolar Disorder: Yes Hx Depression: Yes Hx Post Traumatic Stress Disorder: Yes Hx Substance Use: Yes (Hx Opiod overdose) - Surgical History Other/Comment: L knee surgery jul 21, 2017 - Anesthesia Hx Anesthesia: Yes Hx Anesthesia Reactions: No Hx Malignant Hyperthermia: No - Suicidal Assessment Feels Threatened In Home Enviroment: No Family/Social History - Physician Review Nursing Documentation Reviewed: Yes Family/Social History: No Known Family HX Smoking Status: Current Some Days Smoker Hx Alcohol Use: No Hx Substance Use: Yes (Hx Opiod overdose) Hx Substance Use Treatment: No Allergies/Home Meds Allergies/Adverse Reactions: Allergies Penicillins Allergy (Intermediate, Verified 07/03/18 01:05) HIVES Home Medications: Home Meds Medication Instructions Recorded Confirmed Amitriptyline HCl 10 mg PO DAILY 06/07/18 08/14/18 Clonazepam [Klonopin] 1 mg PO DAILY PRN 06/07/18 08/14/18 Omeprazole 20 mg PO DAILY 06/07/18 08/14/18 Zaleplon [Sonata] 10 mg PO HS 06/07/18 08/14/18 Ziprasidone HCl [Geodon] 20 mg PO DAILY 06/07/18 08/14/18 Review of Systems - Review of Systems Constitutional: absent: Fatigue, Fevers Eyes: absent: Vision Changes ENT: absent: Hearing Changes Respiratory: absent: SOB, Cough Cardiovascular: absent: Chest Pain Gastrointestinal: absent: Abdominal Pain, Diarrhea, Nausea, Vomiting Genitourinary Female: absent: Dysuria Musculoskeletal: absent: Back Pain, Neck Pain Skin: absent: Rash Neurological: absent: Headache, Dizziness Endocrine: absent: Diaphoresis Psychiatric: absent: Anxiety Physical Exam Vital Signs Reviewed: Yes Vital Signs Temp Pulse Resp BP Pulse Ox 08/18/18 17:46 97.6 F 90 18 114/74 96 Temperature: Afebrile Blood Pressure: Normal Pulse: Regular Respiratory Rate: Normal Appearance: Positive for: Non-Toxic, Comfortable, Other (Lethargic ) Pain Distress: None Mental Status: Positive for: Alert and Oriented X 3 - Systems Exam Head: Present: Atraumatic, Normocephalic Pupils: Present: PERRL Extroacular Muscles: Present: EOMI Conjunctiva: Present: Normal Mouth: Present: Moist Mucous Membranes Neck: Present: Normal Range of Motion Respiratory/Chest: Present: Clear to Auscultation, Good Air Exchange. No: Respiratory Distress, Accessory Muscle Use Cardiovascular: Present: Regular Rate and Rhythm, Normal S1, S2. No: Murmurs Abdomen: No: Tenderness, Distention, Peritoneal Signs Upper Extremity: Present: Normal Inspection. No: Cyanosis, Edema Lower Extremity: Present: Normal Inspection. No: Edema Neurological: Present: GCS=15, CN II-XII Intact, Speech Normal Skin: Present: Warm, Dry, Normal Color. No: Rashes Psychiatric: Present: Alert, Oriented x 3, Lethargic Medical Decision Making ED Course and Treatment: 08/18/18 17:37 Impression: Patient is a 53 year old female who presents to Emergency department s/p overdose. Plan: -- EKG -- Reassess and disposition Prior Visits: Notes and results from previous visits were reviewed. Progress Notes: 08/18/18 19:45 Patient monitored for 3 hours. She has improvement of symptoms and is now AAox3. 08/18/18 20:01 [id number] - Scribe Statement The provider has reviewed the documentation as recorded by the ScribMatthew ellis with Param All medical record entries made by the Scribcal were at my direction and personally dictated by me. I have reviewed the chart and agree that the record accurately reflects my personal performance of the history, physical exam, medical decision making, and the department course for this patient. I have also personally directed, reviewed, and agree with the discharge instructions and disposition. Disposition/Present on Arrival - Present on Arrival Any Indicators Present on Arrival: No History of DVT/PE: No History of Uncontrolled Diabetes: No Urinary Catheter: No History of Decub. Ulcer: No History Surgical Site Infection Following: None - Disposition Have Diagnosis and Disposition been Completed?: Yes Diagnosis: Opioid overdose Disposition: HOME/ ROUTINE Disposition Time: 19:46 Patient Plan: Discharge Patient Problems: Current Active Problems Problem Status Onset Opioid overdose Acute Condition: GOOD Discharge Instructions (ExitCare): Narcotic Overdose Additional Instructions: Follow-up with PMD within 2 days. Return to Emergency department if condition worsens. Avoid narcotics. Referrals: Clive Cordoba MD [Primary Care Provider] - Follow up with primary Forms: [employer] ([place])
[2018-08-18 20:51] VITALS: BP 112/76; PULSE 76
--- NOTE | 2018-08-19 08:03 | CARD ---
APPROVED REPORT Date of service: 08/18/2018 EKG Measurement Heart [id number] <Conclusion> Sinus rhythm with Abberrantly Conducted Beat. Intermittent Incomplete right bundle branch block.
== END 2018-08-18 20:45 | disposition home or self-care (01) ==
LOC: ED 17:35
DX: T40.601A Poisoning by unspecified narcotics, accidental (unintentional), initial encounter (principal); R41.82 Altered mental status, unspecified; Y92.009 Unspecified place in unspecified non-institutional (private) residence as the place of occurrence of the external cause; I10 Essential (primary) hypertension

== ENCOUNTER 2018-08-20 13:49 | Emergency (ER) | payer MEDICAID ==
[2018-08-20 13:49] VITALS: BMI 22.2
[2018-08-20 14:08] VITALS: TEMP 98.5
[2018-08-20] MEDS ORDERED: Lidocaine 5% Patch TD ONE (14:18)
[2018-08-20 14:36] LABS: BASO # 0.02 K/mm3 (0.0-2.0); BASO % 0.3 % (0.0-3.0); EOS # 0.3 (0.0-0.7); EOS % 3.8 % (1.5-5.0); HEMOGLOBIN 10.7 g/dL (12.0-16.0); LYMPH # 2.4 (1.2-3.4); MEAN CELL VOLUME 82.4 fl (80.0-105.0); MEAN CORPUSCULAR HEMOGLOBIN 25.8 pg (25.0-35.0); MEAN CORPUSCULAR HGB CONC 31.3 g/dl (31.0-37.0); MEAN PLATELET VOLUME 9.4 fl (7.0-11.0); MONO # 0.4 (0.1-0.6); MONO % 6.1 % (1.0-6.0); RBC 4.15 10^6/uL (3.5-6.1); RED CELL DISTRIBUTION WIDTH 16.3 % (11.5-14.5); WHITE BLOOD COUNT 6.5 10^3/uL (4.5-11.0)
[2018-08-20 14:41] LABS: ACETAMINOPHEN < 10.0 ug/ml (10.0-20.0); SALICYLATE < 1 mg/dL (2.0-20.0)
[2018-08-20 14:44] LABS: ALB/GLOB RATIO 1.3 (1.1-1.8); ALBUMIN 4.4 g/dL (3.0-4.8); ALT/SGPT 198 U/L (7-56); AST/SGOT 118 U/L (14-36); BLOOD UREA NITROGEN 26 mg/dL (7-21); CALCIUM 7.2 mg/dL (8.4-10.5); GFR NON-AFRICAN AMERICAN 58
--- NOTE | 2018-08-20 15:00 | ED PDOC ---
Arrival/HPI - General Chief Complaint: Psychiatric Evaluation Time Seen by Provider: 08/20/18 14:00 Historian: Patient - History of Present Illness Narrative History of Present Illness (Text): 08/20/18 15:01 53 year old female, with past medical history of Crohn's disease, gastritis, seizures, depression, migraines, HTN, and anxiety, presents to emergency department for psychiatric evaluation following taking an extra oxycodone this morning around 9-10 am. Patient reports left-sided pain back pain radiating to the calf for over a week. Patient states that she took 2 oxycodones and a muscle relaxer (Tizanidine), when her brother reported her for suicidal ideation for overdosing on pain medication. Patient denies SI, and states that she only took medication due to pain. Patient also notes neck stiffness and denies any fevers, chills, headache, dizziness, chest pain, shortness of breath, cough, abdominal pain, nausea, vomiting, diarrhea, or any other complaints. PMD: Pain specialist: Time/Duration: Other (around 9-10 am) Symptom Onset: Gradual Symptom Course: Unchanged Activities at Onset: Light Context: Home Past Medical History - Provider Review Nursing Documentation Reviewed: Yes - Past History Past History: Non-Contributing - Infectious Disease Hx of Infectious Diseases: None - Tetanus Immunization Tetanus Immunization: Unknown - Past Medical History Past Medical History: No Previous - Cardiac Hx Cardiac Disorders: Yes Hx Hypertension: Yes - Pulmonary Hx Respiratory Disorders: No - Neurological Hx Neurological Disorder: Yes Hx Migraine: Yes Hx Seizures: Yes Other/Comment: Hx Cerebral Contusion - HEENT Hx HEENT Disorder: No - Renal Hx Renal Disorder: No - Endocrine/Metabolic Hx Endocrine Disorders: No - Hematological/Oncological Hx Blood Disorders: No - Integumentary Hx Dermatological Disorder: No - Musculoskeletal/Rheumatological Hx Musculoskeletal Disorders: Yes Hx Arthritis: Yes Hx Falls: Yes Hx Fractures: Yes (ankle and knee) - Gastrointestinal Hx Gastrointestinal Disorders: Yes Hx Crohn's Disease: Yes Hx Diverticulitis: Yes Hx Pancreatitis: Yes Other/Comment: Hx gastroparesis. Hx Volvulus. Hx Ischemic Enteritis - Genitourinary/Gynecological Hx Genitourinary Disorders: Yes Other/Comment: Hx endometriosis - Psychiatric Hx Psychophysiologic Disorder: Yes Hx Anxiety: Yes Hx Bipolar Disorder: Yes Hx Depression: Yes Hx Post Traumatic Stress Disorder: Yes Hx Substance Use: Yes (Hx Opiod overdose) - Surgical History Other/Comment: L knee surgery jul 21, 2017 - Anesthesia Hx Anesthesia: Yes Hx Anesthesia Reactions: No Hx Malignant Hyperthermia: No - Suicidal Assessment Feels Threatened In Home Enviroment: No Family/Social History - Physician Review Nursing Documentation Reviewed: Yes Family/Social History: Unknown Family HX Smoking Status: Current Some Days Smoker Hx Alcohol Use: No Hx Substance Use: Yes (Hx Opiod overdose) Hx Substance Use Treatment: No Allergies/Home Meds Allergies/Adverse Reactions: Allergies Penicillins Allergy (Intermediate, Verified 08/20/18 13:57) HIVES Home Medications: Home Meds Medication Instructions Recorded Confirmed RX: Clonazepam [Klonopin] 1 mg PO DAILY PRN 06/07/18 08/20/18 Acetaminophen/Butalbital/Caf 1 tab PO TID 08/20/18 08/20/18 [Fioricet] Benzonatate [Tessalon Perle] 100 mg PO TID PRN 08/20/18 08/20/18 RX: Ibuprofen [Motrin Tab] 600 mg PO TID PRN 08/20/18 08/20/18 RX: Meclizine [Meclizine*] 25 mg PO TID PRN 08/20/18 08/20/18 RX: oxyCODONE [oxyCODONE Immediate 10 mg PO QID 08/20/18 08/20/18 Release Tab] RX: tiZANidine [Zanaflex] 4 mg PO BID PRN 08/20/18 08/20/18 Review of Systems - Physician Review All systems were reviewed & negative as marked: Yes - Review of Systems Constitutional: absent: Fevers Respiratory: absent: SOB, Cough, Wheezing Cardiovascular: absent: Chest Pain Gastrointestinal: absent: Diarrhea, Nausea, Vomiting Genitourinary Female: absent: Urine Output Changes Musculoskeletal: Back Pain (radiating down to left calf ), Other (neck stiffness ) Skin: absent: Rash Neurological: absent: Headache, Dizziness Physical Exam Vital Signs Reviewed: Yes Vital Signs Temp Pulse Resp BP Pulse Ox 08/20/18 14:00 98.5 F 73 20 108/68 97 Temperature: Afebrile Blood Pressure: Normal Pulse: Regular Respiratory Rate: Normal Appearance: Positive for: Well-Appearing, Non-Toxic, Comfortable Pain Distress: None Mental Status: Positive for: Alert and Oriented X 3 - Systems Exam Head: Present: Atraumatic, Normocephalic Pupils: Present: PERRL Extroacular Muscles: Present: EOMI Conjunctiva: Present: Normal Mouth: Present: Moist Mucous Membranes Neck: Present: Normal Range of Motion Respiratory/Chest: Present: Clear to Auscultation, Good Air Exchange. No: Respiratory Distress, Accessory Muscle Use Cardiovascular: Present: Regular Rate and Rhythm, Normal S1, S2. No: Murmurs Abdomen: No: Tenderness, Distention, Peritoneal Signs Back: Present: Normal Inspection Upper Extremity: Present: Normal Inspection. No: Cyanosis, Edema Lower Extremity: Present: Normal Inspection. No: Edema Neurological: Present: GCS=15, Other (slow to respond ) Skin: Present: Warm, Dry, Normal Color. No: Rashes Psychiatric: Present: Alert, Oriented x 3, Normal Insight, Normal Concentration Medical Decision Making ED Course and Treatment: 08/20/18 15:23 Impression: 53 year old female presents to emergency department for psychiatric evaluation following taking excess medication for chronic back pain radiating down left leg. Differential Diagnosis included but are not limited to: -- unintentional overdose -- chronic back pain Plan: -- EKG -- Labs -- Urinalysis -- Chest x-ray -- Lidoderm -- Toradol -- Reassess and disposition Prior Visits: Notes and results from previous visits were reviewed. Progress Notes: 08/20/18 15:37 Labs reviewed with some anemia noted. Patient denies any active bleeding. She is medically cleared. PES payroll assistant called. 08/20/18 15:54 Case discussed with patient, who came in for necessity of psychiatric evaluation. Patient refuses evaluation and adamantly wants go home. Patient states situation is a misunderstanding between her and her brother and is ready to sign AMA consent. - Lab Interpretations Lab Results: Total Bilirubin 0.7 mg/dL (0.2-1.3) 08/20/18 14:24 AST 118 U/L (14-36) H D 08/20/18 14:24 ALT 198 U/L (7-56) H 08/20/18 14:24 Alkaline Phosphatase 201 U/L (38-126) H D 08/20/18 14:24 Total Protein 7.7 g/dL (5.8-8.3) 08/20/18 14:24 Albumin 4.4 g/dL (3.0-4.8) 08/20/18 14:24 Globulin 3.3 gm/dL 08/20/18 14:24 Albumin/Globulin Ratio 1.3 (1.1-1.8) 08/20/18 14:24 08/20/18 14:24 08/20/18 14:24 Lab Results 08/20/18 14:24: Alcohol, Quantitative < 10 08/20/18 14:24: Salicylates < 1 L, Acetaminophen < 10.0 L 08/20/18 14:24: Sodium 139, Potassium 4.8, Chloride 107, Carbon Dioxide 24, Anion Gap 13, BUN 26 H, Creatinine 1.0, Est GFR ( Amer) > 60, Est GFR (Non-Af Amer) 58, Random Glucose 99, Calcium 7.2 L, Magnesium 2.2, Total Bilirubin 0.7, AST 118 H D, ALT 198 H, Alkaline Phosphatase 201 H D, Total Protein 7.7, Albumin 4.4, Globulin 3.3, Albumin/Globulin Ratio 1.3 08/20/18 14:24: WBC 6.5, RBC 4.15, Hgb 10.7 L, Hct 34.2 L, MCV 82.4, MCH 25.8, MCHC 31.3, RDW 16.3 H, Plt Count 278, MPV 9.4, Neut % (Auto) 52.8, Lymph % (Auto) 37.0 H, [place] % (Auto) 6.1 H, Eos % (Auto) 3.8, Baso % (Auto) 0.3, Lymph # (Auto) 2.4, [place] # (Auto) 0.4, Eos # (Auto) 0.3, Baso # (Auto) 0.02, Absolute Neuts (auto) 3.44 I have reviewed the lab results: Yes - RAD Interpretation Narrative RAD Interpretations (Text): 08/20/18 14:02 Chest X-ray, reviewed by radiologist: FINDINGS: LUNGS: No active pulmonary disease. PLEURA: No significant pleural effusion identified, no pneumothorax apparent. CARDIOVASCULAR: No aortic atherosclerotic calcification present. Normal cardiac size. No pulmonary vascular congestion. OSSEOUS STRUCTURES: Dextroscoliosis of the midthoracic spine VISUALIZED UPPER ABDOMEN: Metallic clips again seen in the EG junction region OTHER FINDINGS: None. IMPRESSION: No active disease. Radiology Orders: 08/20/18 14:02 CHEST PORTABLE [RAD] Stat Refrigerator Repairman: Radiologist - Medication Orders Current Medication Orders: Discontinued Medications Ketorolac Tromethamine (Toradol) 60 mg IM STAT STA Stop: 08/20/18 14:19 Lidocaine (Lidoderm) 1 ea TD ONCE ONE Stop: 08/20/18 14:19 - Scribe Statement The provider has reviewed the documentation as recorded by the Scribe Marycruz Joaquin All medical record entries made by the Scribe were at my direction and personally dictated by me. I have reviewed the chart and agree that the record accurately reflects my personal performance of the history, physical exam, [facility] decision making, and the department course for this patient. I have also personally directed, reviewed, and agree with the discharge instructions and disposition. Disposition/Present on Arrival - Present on Arrival Any Indicators Present on Arrival: No History of DVT/PE: No History of Uncontrolled Diabetes: No Urinary Catheter: No History of Decub. Ulcer: No History Surgical Site Infection Following: None - Disposition Have Diagnosis and Disposition been Completed?: Yes Diagnosis: Medication overdose Disposition: AGAINST MEDICAL ADVICE Disposition Time: 15:54 Condition: STABLE Forms: [employer] (Colombian)
[2018-08-20 15:12] VITALS: BP 110/71; PULSE 69; RESP 18; O2SAT 98
[2018-08-20 15:59] LABS: URINE APPEARANCE SL CLOUDY (CLEAR); URINE BILIRUBIN NEGATIVE (NEGATIVE); URINE BLOOD NEGATIVE (NEGATIVE); URINE COLOR YELLOW (YELLOW); URINE GLUCOSE (UA) NEGATIVE (NEGATIVE); URINE LEUKOCYTE ESTERASE MODERATE Leu/uL (NEGATIVE); URINE PROTEIN NEGATIVE mg/dL (<30 mg/dL); URINE UROBILINOGEN 0.2 E.U./dL (<1 E.U./dL)
[2018-08-20 16:07] LABS: BARBITURATES, UR POSITIVE (NEGATIVE); BENZODIAZEPINES, UR POSITIVE (NEGATIVE); OPIATES, UR POSITIVE (NEGATIVE); PHENCYCLIDINE, UR NEGATIVE (NEGATIVE)
[2018-08-20 16:13] LABS: URINE BACTERIA MOD /hpf
--- NOTE | 2018-08-20 18:03 | RAD ---
Date of service: 08/20/2018 HISTORY: psych pre screen COMPARISON: Comparison chest 07/03/2018. FINDINGS: LUNGS: No active pulmonary disease. PLEURA: No significant pleural effusion identified, no pneumothorax apparent. CARDIOVASCULAR: No aortic atherosclerotic calcification present. Normal cardiac size. No pulmonary vascular congestion. OSSEOUS STRUCTURES: Dextroscoliosis of the midthoracic spine VISUALIZED UPPER ABDOMEN: Metallic clips again seen in the EG junction region OTHER FINDINGS: None. IMPRESSION: No active disease.
--- NOTE | 2018-08-20 21:23 | CARD ---
APPROVED REPORT Date of service: 08/20/2018 EKG Measurement Heart [id number] <Conclusion> Poor data quality, interpretation may be adversely affected Normal sinus rhythm Normal ECG
== END 2018-08-20 16:00 | disposition left against medical advice (07) ==
LOC: ED 13:49
DX: T40.2X1A Poisoning by other opioids, accidental (unintentional), initial encounter (principal); Y92.009 Unspecified place in unspecified non-institutional (private) residence as the place of occurrence of the external cause; I10 Essential (primary) hypertension

== ENCOUNTER 2018-08-29 14:48 | Emergency (ER) | payer MEDICAID ==
[2018-08-29 18:12] VITALS: BP 110/66; PULSE 72; RESP 18; TEMP 98; O2SAT 97; BMI 17.6
== END 2018-08-29 18:12 | disposition left against medical advice (07) ==
LOC: ED 14:48
DX: Z02.89 Encounter for other administrative examinations (principal); K59.00 Constipation, unspecified

== ENCOUNTER 2018-10-19 18:06 | Observation (INO) | payer MEDICAID ==
[2018-10-19 18:07] VITALS: BMI 17.6
[2018-10-19] MEDS ORDERED: Sodium Chloride 0.9% 1,000 ML IV STA ×2 (18:41→22:23)
--- NOTE | 2018-10-19 18:48 | ED PDOC ---
Arrival/HPI <Everett Ramirez - Last Filed: 10/19/18 21:33> - General Historian: Patient - History of Present Illness Narrative History of Present Illness (Text): 10/19/18 18:45 53yr old female presents today with abdominal pain, nausea/vomiting x 5 days. pt states she has hx of crohns disease and hasnt had a flareup in 2 months. pt denies fevers, but is c/o chills. no cp or sob. no dizziness or weakness. pt states the pain in the abdomen is greatest in the llq. pt states she hasnt been able to eat for the past 4 days. pt describes the pain and achy/crampy. no back pain. no urinary symptoms. no other complaints. <Clara Sorensen - Last Filed: 10/19/18 22:52> - General Chief Complaint: Abdominal Pain Time Seen by Provider: 10/19/18 18:30 Past Medical History - Provider Review Nursing Documentation Reviewed: Yes - Travel History Have you recently traveled outside [place] w/in the past 3 mons?: No - Past History Past History: Non-Contributing - Infectious Disease Hx of Infectious Diseases: None - Tetanus Immunization Tetanus Immunization: Unknown - Past Medical History Past Medical History: No Previous - Cardiac Hx Cardiac Disorders: Yes Hx Hypertension: Yes - Pulmonary Hx Respiratory Disorders: No - Neurological Hx Neurological Disorder: Yes Hx Migraine: Yes Hx Seizures: Yes Other/Comment: Hx Cerebral Contusion - HEENT Hx HEENT Disorder: No - Renal Hx Renal Disorder: No - Endocrine/Metabolic Hx Endocrine Disorders: No - Hematological/Oncological Hx Blood Disorders: No - Integumentary Hx Dermatological Disorder: No - Musculoskeletal/Rheumatological Hx Musculoskeletal Disorders: Yes Hx Arthritis: Yes Hx Falls: Yes Hx Fractures: Yes (ankle and knee) - Gastrointestinal Hx Gastrointestinal Disorders: Yes Hx Crohn's Disease: Yes Hx Diverticulitis: Yes Hx Pancreatitis: Yes Other/Comment: Hx gastroparesis. Hx Volvulus. Hx Ischemic Enteritis - Genitourinary/Gynecological Hx Genitourinary Disorders: Yes Other/Comment: Hx endometriosis - Psychiatric Hx Psychophysiologic Disorder: Yes Hx Anxiety: Yes Hx Bipolar Disorder: Yes Hx Depression: Yes Hx Post Traumatic Stress Disorder: Yes Hx Substance Use: Yes (Hx Opiod overdose) - Surgical History Other/Comment: L knee surgery jul 21, 2017 - Anesthesia Hx Anesthesia: Yes Hx Anesthesia Reactions: No Hx Malignant Hyperthermia: No - Suicidal Assessment Feels Threatened In Home Enviroment: No <Clara Sorensen - Last Filed: 10/19/18 22:52> Family/Social History - Physician Review Nursing Documentation Reviewed: Yes Family/Social History: Unknown Family HX Smoking Status: Current Some Days Smoker Hx Alcohol Use: No Hx Substance Use: Yes (Hx Opiod overdose) Hx Substance Use Treatment: No <Clara Sorensen - Last Filed: 10/19/18 22:52> Allergies/Home Meds <Everett Ramirez - Last Filed: 10/19/18 21:33> <Clara Sorensen - Last Filed: 10/19/18 22:52> Allergies/Adverse Reactions: Allergies Penicillins Allergy (Intermediate, Verified 10/19/18 18:11) HIVES Home Medications: Home Meds Medication Instructions Recorded Confirmed Clonazepam [Klonopin] 1 mg PO DAILY PRN 06/07/18 08/20/18 Acetaminophen/Butalbital/Caf 1 tab PO TID 08/20/18 08/20/18 [Fioricet] Benzonatate [Tessalon Perle] 100 mg PO TID PRN 08/20/18 08/20/18 Ibuprofen [Motrin Tab] 600 mg PO TID PRN 08/20/18 08/20/18 Meclizine [Meclizine*] 25 mg PO TID PRN 08/20/18 08/20/18 oxyCODONE [oxyCODONE Immediate 10 mg PO QID 08/20/18 08/20/18 Release Tab] tiZANidine [Zanaflex] 4 mg PO BID PRN 08/20/18 08/20/18 Review of Systems - Review of Systems Constitutional: absent: Fatigue, Fevers Respiratory: absent: SOB, Cough Cardiovascular: absent: Chest Pain, Palpitations Gastrointestinal: Abdominal Pain, Nausea, Vomiting. absent: Constipation, Diarrhea Genitourinary Female: absent: Dysuria, Frequency, Hematuria Musculoskeletal: absent: Arthralgias, Back Pain Skin: absent: Rash, Pruritis Neurological: absent: Headache, Dizziness Psychiatric: absent: Anxiety, Depression, Suicidal Ideation <Clara Sorensen - Last Filed: 10/19/18 22:52> Physical Exam Vital Signs Temp Pulse Resp BP Pulse Ox 10/19/18 19:57 85 18 111/78 100 10/19/18 18:17 97.9 F 90 16 116/86 100 <Everett Ramirez - Last Filed: 10/19/18 21:33> Vital Signs Reviewed: Yes Vital Signs Temp Pulse Resp BP Pulse Ox 10/19/18 18:17 97.9 F 90 16 116/86 100 Temperature: Afebrile Blood Pressure: Normal Pulse: Regular Respiratory Rate: Normal Appearance: Positive for: Well-Appearing, Non-Toxic, Comfortable Pain Distress: None Mental Status: Positive for: Alert and Oriented X 3 - Systems Exam Head: Present: Atraumatic Mouth: Present: Moist Mucous Membranes Neck: Present: Normal Range of Motion Respiratory/Chest: Present: Clear to Auscultation, Good Air Exchange. No: Respiratory Distress, Accessory Muscle Use Cardiovascular: Present: Regular Rate and Rhythm, Normal S1, S2. No: Murmurs Abdomen: Present: Tenderness (+ llq tenderness, suprapubic tenderness), Normal Bowel Sounds, Guarding. No: Distention, Peritoneal Signs, Rebound Back: Present: Normal Inspection. No: CVA Tenderness, Midline Tenderness, Paraspinal Tenderness Upper Extremity: Present: Normal ROM Lower Extremity: Present: Normal ROM Neurological: Present: GCS=15, Speech Normal Skin: Present: Warm, Dry, Normal Color. No: Rashes Psychiatric: Present: Alert, Oriented x 3 <Clara Sorensen - Last Filed: 10/19/18 22:52> Medical Decision Making - Lab Interpretations Lab Results: pO2 29 mm/Hg (30-55) L 10/19/18 19:34 VBG pH 7.43 (7.32-7.43) 10/19/18 19:34 VBG pCO2 42.0 (40-60) 10/19/18 19:34 VBG HCO3 27.9 mmol/l (21-28) 10/19/18 19:34 VBG Total CO2 29.2 mmol.L (22-28) H 10/19/18 19:34 VBG O2 Sat (Calc) 55.3 % (40-65) 10/19/18 19:34 VBG Base Excess 3.2 mmol/L (0.0-2.0) H 10/19/18 19:34 VBG Potassium 4.6 mmol/L (3.6-5.2) 10/19/18 19:34 Sodium 136.0 mmol/L (132-148) 10/19/18 19:34 Chloride 101.0 mmol/L (98-107) 10/19/18 19:34 Glucose 116 mg/dl (65-105) H 10/19/18 19:34 Lactate 2.0 mmol/L (0.7-2.1) 10/19/18:34 FiO2 21.0 % 10/19/18 19:34 Total Bilirubin 0.3 mg/dL (0.2-1.3) 10/19/18 19:30 AST 42 U/L (14-36) H D 10/19/18 19:30 ALT 58 U/L (7-56) H 10/19/18 19:30 Alkaline Phosphatase 172 U/L (38-126) H 10/19/18 19:30 Total Protein 7.5 g/dL (5.8-8.3) 10/19/18 19:30 Albumin 4.1 g/dL (3.0-4.8) 10/19/18 19:30 Globulin 3.4 gm/dL 10/19/18 19:30 Albumin/Globulin Ratio 1.2 (1.1-1.8) 10/19/18 19:30 Lipase 33 U/L (23-300) 10/19/18 19:30 Urine Color Yellow (YELLOW) 10/19/18 20:30 Urine Appearance Clear (CLEAR) 10/19/18 20:30 Urine pH 6.0 (4.7-8.0) 10/19/18 20:30 Ur Specific [place] 1.010 (1.005-1.035) 10/19/18 20:30 Urine Protein Negative mg/dL (<30 mg/dL) 10/19/18 20:30 Urine Glucose (UA) Negative mg/dL (NEGATIVE) 10/19/18 20:30 Urine Ketones 15 mg/dL (NEGATIVE) H 10/19/18 20:30 Urine Blood Negative (NEGATIVE) 10/19/18 20:30 Urine Nitrate Negative (NEGATIVE) 10/19/18 20:30 Urine Bilirubin Negative (NEGATIVE) 10/19/18 20:30 Urine Urobilinogen 0.2 E.U./dL (<1 E.U./dL) 10/19/18 20:30 Ur Leukocyte Esterase [place]/uL (NEGATIVE) H 10/19/18 20:30 Urine RBC None /hpf (0-2) 10/19/18 20:30 Urine WBC 1 - 3 /hpf (0-6) 10/19/18 20:30 Ur Epithelial Cells 1 - 3 /hpf (0-5) 10/19/18 20:30 - RAD Interpretation Radiology Orders: 10/19/18 18:52 ABD & PELVIS IV CONTRAST ONLY [CT] Stat - Medication Orders Current Medication Orders: Discontinued Medications Sodium Chloride (Sodium Chloride 0.9%) 1,000 mls @ 999 mls/hr IV .Q1H1M STA Stop: 10/19/18 19:41 Last Admin: 10/19/18 19:35 Dose: 999 mls/hr eMAR Start Stop Document 10/19/18 19:35 CD (Rec: 10/19/18 19:36 CD [facility] [id number]-21) Intravenous Solution Start Date 10/19/18 Start Time 19:35 End Date 10/19/18 End time 20:36 Total Infusion Time 61 Ondansetron HCl (Zofran Inj) 4 mg IVP STAT STA Stop: 10/19/18 18:42 Last Admin: 10/19/18 19:37 Dose: 4 mg IVP Administration Document 10/19/18 19:37 CD (Rec: 10/19/18 19:37 CD [facility] [place]-[facility]-21) Charges for Administration # of IVP Administrations 1 <Everett Ramirez - Last Filed: 10/19/18 21:33> ED Course and Treatment: 10/19/18 18:48 Patient is nontoxic well appearing with stable vital signs presenting with nausea/vomiting and abdominal pain EK bpm sinus rhythm with short MS. No ST elevations CBC wnl CMP slightly elevated lfts Lipase wnl pt is non toxic well appearing; pt walked to the coffee machine, made and drank a cup of coffee and ate crackers. Urinalysis trace leukocytes CAT scan: FINDINGS: LUNG BASES: The lung bases appear clear. No pleural effusions are seen. LIVER: Unremarkable. GALLBLADDER AND BILE DUCTS: The gallbladder is not identified. Status post cholecystectomy. No biliary ductal dilatation is evident. PANCREAS: Unremarkable. SPLEEN: Unremarkable. ADRENAL GLANDS: Unremarkable. KIDNEYS, URETERS, AND BLADDER: Both kidneys are normal in size and position. A 1.6 cm cyst is noted in the posterior mid right renal pole. A 2.0 cm cyst is seen in the medial lower left renal pole.There is no hydronephrosis or hydroureter. No urinary calculi are seen. The urinary bladder appeared normal in size and configuration. STOMACH AND BOWEL: Glendy-esophagogastric surgical clips are noted from prior surgery. Mucosal wall thickening is seen within the stomach, duodenum and jejunum thought compatible with gastroenteritis. Infectious or inflammatory etiologies are thought most likely.No evidence of bowel obstruction. No evidence suggesting colitis. Mildly abundant fecal material is noted which may indicate some constipation. APPENDIX: No evidence of acute appendicitis on CT examination. PERITONEUM: No free fluid. No free air. LYMPH NODES: No lymphadenopathy is evident. REPRODUCTIVE: Unremarkable as visualized. VASCULATURE: No evidence of abdominal aortic aneurysm. Minor atherosclerotic vascular plaquing is present. BONES: No aggressive appearing osseous lesion. No acute osseous pathology evident. Dextroscoliotic curvature is noted within the lower thoracic spine. Levoscoliotic curvature is seen within the lumbar spine. A sclerotic right pedicle is noted within L3. This may be compatible with a bone island. Disc interspace narrowing is seen at L2-3 compatible with degenerative disc disease. IMPRESSION: 1. Evidence of gastroenteritis. 2. Prior surgery noted in the region of the esophagogastric junction. 3. Status post cholecystectomy. 4. Evidence of mild constipation. 5. Sclerotic focus in the right pedicle of L3. This may be compatible with a bone island. Electronically signed on Oct 19, 2018 9:50:50 PM EDT by: Lester Barrios M.D., GARTH Certified By [facility] & [facility] Fellowship Trained MRI and CT Specialist Patient reassessment: pt is not feeling better. states she is feeling nauseous and dry heaving in er. pt given 2nd liter of NS. 2nd dose of zofran given. bactrim PO. case discussed with dr. craig; accepts obs admission for intractable nausea/vomiting, abdominal pain, uti. All aspects of this case were discussed the attending of record. Impression: Abdominal pain, nausea/vomiting, UTI admit med/surg obs - Medication Orders Current Medication Orders: Sodium Chloride (Sodium Chloride 0.9%) 1,000 mls @ 999 mls/hr IV .Q1H1M STA Stop: 10/19/18 19:41 Discontinued Medications Ondansetron HCl (Zofran Inj) 4 mg IVP STAT STA Stop: 10/19/18 18:42 <Clara Sorensen - Last Filed: 10/19/18 22:52> - PA / STATION CHIEF / Resident Statement / has reviewed & agrees with the documentation as recorded. <Everett Ramirez - Last Filed: 10/19/18 21:33> Disposition/Present on Arrival <vEerett Ramirez - Last Filed: 10/19/18 21:33> - Present on Arrival Any Indicators Present on Arrival: No History of DVT/PE: No History of Uncontrolled Diabetes: No Urinary Catheter: No History of Decub. Ulcer: No History Surgical Site Infection Following: None - Disposition Have Diagnosis and Disposition been Completed?: Yes Disposition Time: 22:29 Patient Plan: Observation <Clara Sorensen - Last Filed: 10/19/18 22:52> - Disposition Diagnosis: Vomiting, Opiate overdose, Abdominal pain, Intractable vomiting with nausea, Nausea & vomiting Disposition: HOSPITALIZED Patient Problems: Current Active Problems Problem Status Onset Abdominal pain Acute Intractable vomiting with nausea Acute Nausea & vomiting Acute Opiate overdose Acute Vomiting Acute Condition: FAIR
[2018-10-19 19:41] LABS: VENOUS BLOOD GAS BASE EXCESS 3.2 mmol/L (0.0-2.0); VENOUS BLOOD GAS PO2 29 mm/Hg (30-55); VENOUS BLOOD PH 7.43 (7.32-7.43)
[2018-10-19 19:44] LABS: BASO # 0.02 K/mm3 (0.0-2.0); BASO % 0.4 % (0.0-3.0); EOS % 0.6 % (1.5-5.0); HEMOGLOBIN 10.7 g/dL (12.0-16.0); LYMPH # 2.1 (1.2-3.4); LYMPH % 39.6 % (22.0-35.0); MEAN CELL VOLUME 78.9 fl (80.0-105.0); MEAN CORPUSCULAR HEMOGLOBIN 25.4 pg (25.0-35.0); MEAN CORPUSCULAR HGB CONC 32.1 g/dl (31.0-37.0); MEAN PLATELET VOLUME 9.3 fl (7.0-11.0); MONO # 0.4 (0.1-0.6); MONO % 7.3 % (1.0-6.0); RBC 4.22 10^6/uL (3.5-6.1); RED CELL DISTRIBUTION WIDTH 15.2 % (11.5-14.5); WHITE BLOOD COUNT 5.3 10^3/uL (4.5-11.0)
[2018-10-19 19:51] LABS: ALB/GLOB RATIO 1.2 (1.1-1.8); ALBUMIN 4.1 g/dL (3.0-4.8); ALT/SGPT 58 U/L (7-56); AST/SGOT 42 U/L (14-36); BLOOD UREA NITROGEN 21 mg/dL (7-21); CALCIUM 9.7 mg/dL (8.4-10.5); GFR NON-AFRICAN AMERICAN > 60; LIPASE 33 U/L (23-300)
[2018-10-19] MEDS ORDERED: Iohexol 350 MG/100 ML VIAL ONE (20:25)
[2018-10-19 21:10] LABS: URINE BILIRUBIN NEGATIVE (NEGATIVE); URINE BLOOD NEGATIVE (NEGATIVE); URINE GLUCOSE (UA) NEGATIVE (NEGATIVE); URINE LEUKOCYTE ESTERASE SMALL Leu/uL (NEGATIVE); URINE PROTEIN NEGATIVE mg/dL (<30 mg/dL); URINE UROBILINOGEN 0.2 E.U./dL (<1 E.U./dL)
[2018-10-19 21:13] LABS: URINE APPEARANCE CLEAR (CLEAR); URINE COLOR YELLOW (YELLOW)
[2018-10-19] MEDS ORDERED: Tmp-Smz 800 mg-160 mg DS Tab PO STA (22:32)
--- NOTE | 2018-10-19 22:54 | CARD ---
APPROVED REPORT Date of service: 10/19/2018 EKG Measurement Heart [id number] <Conclusion> Sinus rhythm with short AL Otherwise normal ECG
--- NOTE | 2018-10-19 23:39 | CP.PCM.HP ---
<Jose Infante - Last Filed: 10/20/18 06:36> History of Present Illness - History of Present Illness History of Present Illness: PGY-1 History and Physical for Dr. Norwood Patient is a 53 year old female with PMHx Crohn's disease, peptic ulcer disease, epilepsy, depression, anxiety, migraines who presents complaining of 5 days abdominal pain, nausea, and vomiting. Patient states that she often has fluctuating GI symptoms as a result of her crohn's disease including nausea, vomiting, abdominal pain, diarrhea, and fluctuations in weight. However over the past 5 days specifically, her primary complaints are nausea, non-bloody bilious vomiting, and abdominal discomfort (epigastric and left lower quadrant). Patient states that she has been having bowel movements about daily which are normal shape and color but BMs have been small. She denies any diarrhea, watery or loose stools, bloody or black tarry stools, or unusual odor. Patient complains of having difficulty keeping food down, that taking even small sips of water causes her to feel nauseous and sometimes to vomit. Patient states that when she can eat bananas help with her nausea. Patient denies any fevers or chills. She bravo report recent weight loss over the past sever months of about 15 pounds due to loss of appetite from GI symptoms, which she subsequently gained back when she started to eat again. She takes pain medication for bilateral knee problems requiring multiple surgeries in the past, but at this ti me is complaining only of very mild knee pain on the right. Patient denies dysuria, flank, pain, or urinary frequency. Pmhx: Chron's disease, gastritis, epilepsy, depression, anxiety, migraines, chr onic knee pain SxH: vagotomy, cholecystectomy, R ankle tendon repair, R knee meniscus repair, L arthroscopic knee replacement FamH: mom- heart dz, DM, dad- cancer () SocH: former smoker, 5-6 cigarettes/day x15 yrs denies etoh or drug use. On disability for crohns disease. Mother of two children. Allergies: PCN - hives. Naprosyn - nausea Meds: oxycodone, keppra, lexapro, fioricet, klonopin, medication for crohn's disease (name unknown to patient) PMD: Dr. Lacey Psych: Dr. Grace Pharmacy: [facility] [place] Present on Admission - Present on Admission Any Indicators Present on Admission: No Review of Systems - Constitutional Constitutional: absent: Chills, Fever, Headache, Weakness Additional comments: Weight fluctuations over past several months as described - EENT Eyes: absent: Blurred Vision, Change in Vision Nose/Mouth/Throat: absent: Nasal Congestion, Sore Throat - Cardiovascular Cardiovascular: absent: Chest Pain, Dyspnea, Edema, Palpitations - Respiratory Respiratory: absent: Cough, Dyspnea - Gastrointestinal Gastrointestinal: Abdominal Pain, Constipation (daily stools which are smaller than usual), Nausea, Vomiting. absent: Change in Stool Character, Diarrhea, Hematochezia, Loose Stools, Melena - Genitourinary Genitourinary: absent: Dysuria, Flank Pain, Urinary Frequency - Musculoskeletal Musculoskeletal: absent: Back Pain, Neck Pain Additional comments: Mild R knee pain and "popping and clicking" - Neurological Neurological: absent: Confusion, Dizziness, Paresthesias, Tingling, Weakness - Psychiatric Psychiatric: Anxiety, Depression - Hematologic/Lymphatic Hematologic: absent: Easy Bleeding, Easy Bruising Past Patient History - Infectious Disease Hx of Infectious Diseases: None - Tetanus Immunizations Tetanus Immunization: Unknown - Past Medical History & Family History Past Medical History?: Yes - Past Social History Smoking Status: Current Some Days Smoker - CARDIAC Hx Cardiac Disorders: Yes Hx Hypertension: Yes - PULMONARY Hx Respiratory Disorders: No - NEUROLOGICAL Hx Neurological Disorder: Yes Hx Migraine: Yes Hx Seizures: Yes Other/Comment: Hx Cerebral Contusion - HEENT Hx HEENT Problems: No - RENAL Hx Chronic Kidney Disease: No - ENDOCRINE/METABOLIC Hx Endocrine Disorders: No - HEMATOLOGICAL/ONCOLOGICAL Hx Blood Disorders: No - INTEGUMENTARY Hx Dermatological Problems: No - MUSCULOSKELETAL/RHEUMATOLOGICAL Hx Musculoskeletal Disorders: Yes Hx Arthritis: Yes Hx Falls: Yes Hx Fractures: Yes (ankle and knee) - GASTROINTESTINAL Hx Gastrointestinal Disorders: Yes Hx Crohn's Disease: Yes Hx Diverticulitis: Yes Hx Pancreatitis: Yes Other/Comment: Hx gastroparesis. Hx Volvulus. Hx Ischemic Enteritis - GENITOURINARY/GYNECOLOGICAL Hx Genitourinary Disorders: Yes Other/Comment: Hx endometriosis - PSYCHIATRIC Hx Psychophysiologic Disorder: Yes Hx Anxiety: Yes Hx Bipolar Disorder: Yes Hx Depression: Yes Hx Post Traumatic Stress Disorder: Yes Hx Substance Use: Yes (Hx Opiod overdose) - SURGICAL HISTORY Other/Comment: L knee surgery jul 21, 2017 - ANESTHESIA Hx Anesthesia: Yes Hx Anesthesia Reactions: No Hx Malignant Hyperthermia: No Meds Allergies/Adverse Reactions: Allergies Allergy/AdvReac Type Severity Reaction Status Date / Time Penicillins Allergy Intermediate HIVES Verified 10/19/18 18:11 Physical Exam - Constitutional Appears: Non-toxic, No Acute Distress - Head Exam Head Exam: ATRAUMATIC, NORMOCEPHALIC - Eye Exam Eye Exam: EOMI, Normal appearance - ENT Exam ENT Exam: Mucous Membranes Moist - Respiratory Exam Respiratory Exam: Clear to Auscultation Bilateral. absent: Rhonchi, Wheezes, Respiratory Distress - Cardiovascular Exam Cardiovascular Exam: REGULAR RHYTHM, +S1, +S2 - GI/Abdominal Exam GI & Abdominal Exam: Normal Bowel Sounds, Soft. absent: Distended, Firm, Hernia, Rebound Additional comments: Mild epigastric and left lower quadrant tenderness to palpation - Extremities Exam Extremities exam: Positive for: normal inspection. Negative for: pedal edema, tenderness Additional comments: No lower extremity ttp. Negative anterior/posterior drawer test b/l. - Neurological Exam Neurological exam: Alert, CN II-XII Intact, Oriented x3 - Psychiatric Exam Psychiatric exam: Normal Affect, Normal Mood - Skin Skin Exam: Dry, Intact Results - Vital Signs Recent Vital Signs: Last Vital Signs Temp 97.8 F 10/19/18 22:59 Pulse 78 10/19/18 22:59 Resp 18 10/19/18 22:59 BP 130/84 10/19/18 22:59 Pulse Ox 98 10/19/18 22:59 - Labs Result Diagrams: 10/19/18 19:30 10/19/18 19:30 Labs: Laboratory Results - last 24 hr 10/19/18 10/19/18 10/19/18 19:30 19:30 19:34 WBC 5.3 RBC 4.22 Hgb 10.7 L Hct 33.3 L MCV 78.9 L D MCH 25.4 MCHC 32.1 RDW 15.2 H Plt Count 437 MPV 9.3 Neut % (Auto) 52.1 Lymph % (Auto) 39.6 H Marinette % (Auto) 7.3 H Eos % (Auto) 0.6 L Baso % (Auto) 0.4 Lymph # (Auto) 2.1 Marin[place] # (Auto) 0.4 Eos # (Auto) 0.0 Baso # (Auto) 0.02 Absolute Neuts (auto) 2.78 pO2 29 L VBG pH 7.43 VBG pCO2 42.0 VBG HCO3 27.9 VBG Total CO2 29.2 H VBG O2 Sat (Calc) 55.3 VBG Base Excess 3.2 H VBG Potassium 4.6 Glucose 116 H Lactate 2.0 FiO2 21.0 Sodium 138 136.0 Potassium 4.3 Chloride 100 101.0 Carbon Dioxide 27 Anion Gap 16 BUN 21 Creatinine 0.9 Est GFR ( Amer) > 60 Est GFR (Non-Af Amer) > 60 Random Glucose 110 Calcium 9.7 Total Bilirubin 0.3 AST 42 H D ALT 58 H Alkaline Phosphatase 172 H Total Protein 7.5 Albumin 4.1 Globulin 3.4 Albumin/Globulin Ratio 1.2 Lipase 33 Venous Blood Potassium 4.6 Urine Color Urine Appearance Urine pH Ur Specific Lorton Urine Protein Urine Glucose (UA) Urine Ketones Urine Blood Urine Nitrate Urine Bilirubin Urine Urobilinogen Ur Leukocyte Esterase Urine RBC Urine WBC Ur Epithelial Cells 10/19/18 20:30 WBC RBC Hgb Hct MCV MCH MCHC RDW Plt Count MPV Neut % (Auto) Lymph % (Auto) Marinette % (Auto) Eos % (Auto) Baso % (Auto) Lymph # (Auto) [place] # (Auto) Eos # (Auto) Baso # (Auto) Absolute Neuts (auto) pO2 VBG pH VBG pCO2 VBG HCO3 VBG Total CO2 VBG O2 Sat (Calc) VBG Base Excess VBG Potassium Glucose Lactate FiO2 Sodium Potassium Chloride Carbon Dioxide Anion Gap BUN Creatinine Est GFR ( Amer) Est GFR (Non-Af Amer) Random Glucose Calcium Total Bilirubin AST ALT Alkaline Phosphatase Total Protein Albumin Globulin Albumin/Globulin Ratio Lipase Venous Blood Potassium Urine Color Yellow Urine Appearance Clear Urine pH 6.0 Ur Specific Lorton 1.010 Urine Protein Negative Urine Glucose (UA) Negative Urine Ketones 15 H Urine Blood Negative Urine Nitrate Negative Urine Bilirubin Negative Urine Urobilinogen 0.2 Ur Leukocyte Esterase Small H Urine RBC None Urine WBC 1 - 3 Ur Epithelial Cells 1 - 3 Assessment & Plan - Assessment and Plan (Free Text) Assessment: 53 year old female with PMHx Crohn's disease, gastritis, epilepsy, depression, anxiety, migraines, chronic knee pain who presents with 5 days nausea, bilious vomiting, and abdominal discomfort is found to have evidence of gastroenteritis and constipation on CT of the abdomen and pelvis without fevers or leukocytosis. Patient denies diarrhea, loose, or bloody stools, and has only mild abdominal discomfort and thus presentation appears most consistent with acute gastroenteritis and constipation as opposed to acute Crohn's flare. Gastroenteritis in the setting of Crohn's Disease Imaging -CT abdomen/pelvis 1. Evidence of gastroenteritis. 2. Prior surgery noted in the region of the esophagogastric junction. 3. Status post cholecystectomy. 4. Evidence of mild constipation. 5. Sclerotic focus in the right pedicle of L3. This may be compatible with a bone island. -Hold on antibiotics at this time -Hold on GI consult at this time -NPO except meds -Pain medication dose reduced to oxycodone 5mg PO Q8 prn in light of con stipation on CT abd/pelvis -UA shows small LE -f/u urine cultures Meds -Protonix 40 mg IV daily -Zofran 4mg Q6 prn -NS @ 125 cc/hr -Patient takes medications for Crohn's disease of which she is unsure of the name -Day team to follow up with [facility] [place] pharmacy to confirm home medications and dosages Anemia, likely anemia of chronic disease -HgB 10.7 -Microcytic. Likely anemia of chronic disease 2/2 crohn's as opposed to B12 deficiency from malabsorption. -Trend H and H Chronic Bilateral Knee Pain -Oxycodone 5mg Q8 prn Anxiety/Depression -Lexapro 20 mg PO daily -Klonopin held overnight Epilepsy -Keppra 500 mg PO BID Migraines -Asymptomatic -Fioricet held overnight Assessment and plan discussed with Dr. Enma Infante, PGY-1 <Elise Norwood - Last Filed: 10/20/18 19:02> Results - Vital Signs Recent Vital Signs: Last Vital Signs Temp 98.4 F 10/20/18 17:26 Pulse 78 10/20/18 17:26 Resp 20 10/20/18 17:26 BP 128/87 10/20/18 17:26 Pulse Ox 96 10/20/18 17:26 - Labs Result Diagrams: 10/20/18 06:35 10/20/18 06:35 Labs: Laboratory Results - last 24 hr 10/19/18 10/19/18 10/19/18 19:30 19:30 19:34 WBC 5.3 RBC 4.22 Hgb 10.7 L Hct 33.3 L MCV 78.9 L D MCH 25.4 MCHC 32.1 RDW 15.2 H Plt Count 437 MPV 9.3 Neut % (Auto) 52.1 Lymph % (Auto) 39.6 H Marinette % (Auto) 7.3 H Eos % (Auto) 0.6 L Baso % (Auto) 0.4 Lymph # (Auto) 2.1 [place] # (Auto) 0.4 Eos # (Auto) 0.0 Baso # (Auto) 0.02 Absolute Neuts (auto) 2.78 pO2 29 L VBG pH 7.43 VBG pCO2 42.0 VBG HCO3 27.9 VBG Total CO2 29.2 H VBG O2 Sat (Calc) 55.3 VBG Base Excess 3.2 H VBG Potassium 4.6 Glucose 116 H Lactate 2.0 FiO2 21.0 Crit Value Called To Crit Value Called By Blood Gas Notified Time Sodium 138 136.0 Potassium 4.3 Chloride 100 101.0 Carbon Dioxide 27 Anion Gap 16 BUN 21 Creatinine 0.9 Est GFR ( Amer) > 60 Est GFR (Non-Af Amer) > 60 Random Glucose 110 Calcium 9.7 Total Bilirubin 0.3 AST 42 H D ALT 58 H Alkaline Phosphatase 172 H Total Protein 7.5 Albumin 4.1 Globulin 3.4 Albumin/Globulin Ratio 1.2 Lipase 33 Venous Blood Potassium 4.6 Urine Color Urine Appearance Urine pH Ur Specific Lorton Urine Protein Urine Glucose (UA) Urine Ketones Urine Blood Urine Nitrate Urine Bilirubin Urine Urobilinogen Ur Leukocyte Esterase Urine RBC Urine WBC Ur Epithelial Cells Urine Opiates Screen Urine Methadone Screen Ur Barbiturates Screen Ur Phencyclidine Scrn Ur Amphetamines Screen U Benzodiazepines Scrn U Oth Cocaine Metabols U Cannabinoids Screen 10/19/18 10/20/18 10/20/18 20:30 00:05 02:30 WBC RBC Hgb Hct MCV MCH MCHC RDW Plt Count MPV Neut % (Auto) Lymph % (Auto) [place] % (Auto) Eos % (Auto) Baso % (Auto) Lymph # (Auto) [place] # (Auto) Eos # (Auto) Baso # (Auto) Absolute Neuts (auto) pO2 37 VBG pH 7.37 VBG pCO2 45.0 VBG HCO3 26.0 VBG Total CO2 27.4 VBG O2 Sat (Calc) 71.8 H VBG Base Excess 0.3 VBG Potassium 4.0 Glucose 136 H Lactate 3.0 H FiO2 21.0 Crit Value Called To Edda riddle rn 3rno Crit Value Called By [facility] Blood Gas Notified Time 40 Sodium 138.0 Potassium Chloride 104.0 Carbon Dioxide Anion Gap BUN Creatinine Est GFR ( Amer) Est GFR (Non-Af Amer) Random Glucose Calcium Total Bilirubin AST ALT Alkaline Phosphatase Total Protein Albumin Globulin Albumin/Globulin Ratio Lipase Venous Blood Potassium 4.0 Urine Color Yellow Urine Appearance Clear Urine pH 6.0 Ur Specific Lorton 1.010 Urine Protein Negative Urine Glucose (UA) Negative Urine Ketones 15 H Urine Blood Negative Urine Nitrate Negative Urine Bilirubin Negative Urine Urobilinogen 0.2 Ur Leukocyte Esterase Small H Urine RBC None Urine WBC 1 - 3 Ur Epithelial Cells 1 - 3 Urine Opiates Screen Negative Urine Methadone Screen Negative Ur Barbiturates Screen Positive H Ur Phencyclidine Scrn Negative Ur Amphetamines Screen Negative U Benzodiazepines Scrn Positive H U Oth Cocaine Metabols Negative U Cannabinoids Screen Negative 10/20/18 10/20/18 10/20/18 06:35 06:35 06:35 WBC 4.6 RBC 3.76 Hgb 9.4 L Hct 29.9 L MCV 79.5 L MCH 25.0 MCHC 31.4 RDW 15.2 H Plt Count 363 MPV 9.1 Neut % (Auto) 33.0 L Lymph % (Auto) 57.0 H [place] % (Auto) 6.3 H Eos % (Auto) 3.3 Baso % (Auto) 0.4 Lymph # (Auto) 2.6 [place] # (Auto) 0.3 Eos # (Auto) 0.2 Baso # (Auto) 0.02 Absolute Neuts (auto) 1.52 pO2 229 H VBG pH 7.54 H VBG pCO2 27.0 L VBG HCO3 23.1 VBG Total CO2 23.9 VBG O2 Sat (Calc) 94.5 H VBG Base Excess 1.7 VBG Potassium 3.7 Glucose 109 H Lactate 1.0 FiO2 21.0 Crit Value Called To Wendy more Crit Value Called By [facility] Blood Gas Notified Time 710 Sodium 139 139.0 Potassium 3.8 Chloride 109 H 111.0 H Carbon Dioxide 24 Anion Gap 10 BUN 13 Creatinine 0.9 Est GFR ( Amer) > 60 Est GFR (Non-Af Amer) > 60 Random Glucose 108 Calcium 8.9 Total Bilirubin 0.2 AST 20 ALT 44 Alkaline Phosphatase 133 H D Total Protein 6.0 Albumin 3.3 Globulin 2.7 Albumin/Globulin Ratio 1.2 Lipase Venous Blood Potassium 3.7 Urine Color Urine Appearance Urine pH Ur Specific Lorton Urine Protein Urine Glucose (UA) Urine Ketones Urine Blood Urine Nitrate Urine Bilirubin Urine Urobilinogen Ur Leukocyte Esterase Urine RBC Urine WBC Ur Epithelial Cells Urine Opiates Screen Urine Methadone Screen Ur Barbiturates Screen Ur Phencyclidine Scrn Ur Amphetamines Screen U Benzodiazepines Scrn U Oth Cocaine Metabols U Cannabinoids Screen Attending/Attestation - Attestation I have personally seen and examined this patient.: Yes I have fully participated in the care of the patient.: Yes I have reviewed all pertinent clinical information: Yes Notes (Text): 10/20/18 19:01 seen and examined. A&P as above. Discussed with resident.
[2018-10-19] MEDS: Sodium Chloride 0.9% 1,000 ML IV SCH (23:55)
[2018-10-20] MEDS: oxyCODONE 5 mg Immediate Release Tab PO PRN (00:31)
[2018-10-20 00:42] LABS: VENOUS BLOOD GAS BASE EXCESS 0.3 mmol/L (0.0-2.0); VENOUS BLOOD GAS PO2 37 mm/Hg (30-55); VENOUS BLOOD PH 7.37 (7.32-7.43)
[2018-10-20 03:19] LABS: BARBITURATES, UR POSITIVE (NEGATIVE); BENZODIAZEPINES, UR POSITIVE (NEGATIVE); OPIATES, UR NEGATIVE (NEGATIVE); PHENCYCLIDINE, UR NEGATIVE (NEGATIVE)
[2018-10-20] MEDS ORDERED: metroNIDAZOLE IV 500 mg/100 ml 500 MG/100 ML BAG IVPB SCH (06:00)
[2018-10-20 07:04] LABS: BASO # 0.02 K/mm3 (0.0-2.0); BASO % 0.4 % (0.0-3.0); EOS # 0.2 (0.0-0.7); EOS % 3.3 % (1.5-5.0); HEMOGLOBIN 9.4 g/dL (12.0-16.0); LYMPH # 2.6 (1.2-3.4); MEAN CELL VOLUME 79.5 fl (80.0-105.0); MEAN CORPUSCULAR HGB CONC 31.4 g/dl (31.0-37.0); MEAN PLATELET VOLUME 9.1 fl (7.0-11.0); MONO # 0.3 (0.1-0.6); MONO % 6.3 % (1.0-6.0); RBC 3.76 10^6/uL (3.5-6.1); RED CELL DISTRIBUTION WIDTH 15.2 % (11.5-14.5); WHITE BLOOD COUNT 4.6 10^3/uL (4.5-11.0)
[2018-10-20 07:10] LABS: VENOUS BLOOD GAS BASE EXCESS 1.7 mmol/L (0.0-2.0); VENOUS BLOOD GAS PO2 229 mm/Hg (30-55); VENOUS BLOOD PH 7.54 (7.32-7.43)
[2018-10-20 07:38] LABS: ALB/GLOB RATIO 1.2 (1.1-1.8); ALBUMIN 3.3 g/dL (3.0-4.8); ALT/SGPT 44 U/L (7-56); AST/SGOT 20 U/L (14-36); BLOOD UREA NITROGEN 13 mg/dL (7-21); CALCIUM 8.9 mg/dL (8.4-10.5); GFR NON-AFRICAN AMERICAN > 60
--- NOTE | 2018-10-20 08:07 | CT ---
Date of service: 10/19/2018 PROCEDURE: CT Abdomen and Pelvis with contrast HISTORY: lower abdominal pain COMPARISON: Abdomen pelvis CT without contrast 02/02/2018. MRI abdomen with and without contrast with MRCP, 01/15/2018. TECHNIQUE: Following the intravenous administration of iodinated contrast material, a CT examination of the abdomen and pelvis was performed from the domes of the diaphragms to the symphysis pubis with reformatted datasets provided in axial, sagittal and coronal planes. Oral contrast was not administered as per referring physician request. Contrast dose: Omnipaque 300, 96 cc Radiation dose: Total exam DLP = 283.45 mGy-cm. This CT exam was performed using one or more of the following dose reduction techniques: Automated exposure control, adjustment of the mA and/or kV according to patient size, and/or use of iterative reconstruction technique. FINDINGS: LOWER THORAX: Scoliotic thoracolumbar spinal deformity reiterated. LIVER: No definite mass appreciable within the liver. Mild central intrahepatic biliary duct dilatation reiterated, stable. GALLBLADDER AND BILE DUCTS: Prior cholecystectomy appears stable extrahepatic biliary dilatation not significantly changed. No radiodense choledocholithiasis. PANCREAS: Atrophic nonfocal pancreas reiterated. SPLEEN: Unremarkable. ADRENALS: Unremarkable. No mass. KIDNEYS AND URETERS: Stable bilateral renal cystic changes. No obstructive uropathy or definitive solid parenchymal mass bilaterally. VASCULATURE: Nonaneurysmal abdominal aortic calcific atherosclerotic changes are identified. BOWEL: Prominent retained fecal material is identified throughout the large bowel and may reflect constipation. Clinically correlate. No bowel obstruction appreciable. No definitive pattern of enteritis or colitis. No gross mass identified. Evaluation of the gastrointestinal tract is limited due to the lack of oral contrast administration. The stomach is collapsed and poorly evaluated as result. Postoperative changes seen at the esophagogastric junction and medial cardiac portion of the stomach. Small hiatal hernia encountered. APPENDIX: No CT evidence of appendicitis. PERITONEUM: Unremarkable. No free fluid. No free air. LYMPH NODES: Unremarkable. No enlarged lymph nodes. BLADDER: Distended but otherwise unremarkable appearing. REPRODUCTIVE: Unremarkable. BONES: No acute fracture. Stable sclerosis of right L3 pedicle. OTHER FINDINGS: None. IMPRESSION: Prominent retained fecal material throughout the large bowel. No definite pattern to suggest acute colitis or enteritis. Stomach is collapsed not well evaluated. Small hiatal hernia encountered. Postop changes esophagogastric junction. Evaluation of the gastrointestinal tract is limited due to the lack of oral contrast administration. Prior cholecystectomy with stable dilated biliary tree. Stable bilateral renal cysts and atrophic pancreas. Preliminary report provided by Nikki, 10/19/2018 9:50 p.m..
[2018-10-20] MEDS ORDERED: cefTRIAXone 1 gm 1 GM/100 ML BAG IVPB SCH ×2 (10:00)
[2018-10-20] MEDS: Sodium Chloride 0.9% 1,000 ML IV SCH ×2 (10:50→18:24)
[2018-10-20] MEDS: POLYETHYLENE GLYCOL 3350 17 GM/Dose PACKET PO SCH ×2 (10:51→17:16)
[2018-10-20] MEDS ORDERED: Albuterol 0.5% Inhal Sol (2.5 mg/0.5 ml) UD IH PRN ×2 (12:31→13:00)
[2018-10-20] MEDS: Apap-Butalbital-Caffeine 325-50-40mg Tab PO PRN ×2 (13:10→20:58)
--- NOTE | 2018-10-20 17:33 | CP.PCM.PN ---
<Melecio Anna - Last Filed: 10/20/18 17:30> Subjective - Date & Time of Evaluation Date of Evaluation: 10/20/18 Time of Evaluation: 08:00 - Subjective Subjective: Melecio Anna PGY1 Medicine Progress Note for Dr. Oh Patient seen at bedside. No overnight changes. Last episode of vomiting was yesterday. She claims to have diarrhea but stool is semi-formed as per nursing staff. No cp, sob, fevers, chills. She has mild left lower quadrant abdominal pain. She says the previous time she had diarrhea was 3 days ago and it was non-bloody. A full 12 point ROS was conducted and unremarkable except as stated above. Objective - Vital Signs/Intake and Output Vital Signs (last 24 hours): Temp Pulse Resp BP Pulse Ox 98.4 F 78 20 128/87 96 10/20/18 17:26 10/20/18 17:26 10/20/18 17:26 10/20/18 17:26 10/20/18 17:26 Intake and Output: 10/20/18 10/20/18 06:59 18:59 Intake Total 0 875 Output Total 350 Balance -350 875 - Medications Medications: Current Medications Acetaminophen/Butalbital/Caffeine (Fioricet) 1 tab PO TID PRN PRN Reason: Migraine headache Last Admin: 10/20/18 13:10 Dose: 1 tab Albuterol Sulfate (Albuterol 0.5% Inhal Elisa (2.5 Mg/0.5 Ml) Ud) 2.5 mg IH QIDRESP PRN PRN Reason: Shortness of Breath Diazepam (Valium) 5 mg PO TID PRN; Protocol PRN Reason: Anxiety Last Admin: 10/20/18 13:09 Dose: 5 mg Escitalopram Oxalate (Lexapro) 20 mg PO DAILY [facility] Last Admin: 10/20/18 09:53 Dose: 20 mg Sodium Chloride (Sodium Chloride 0.9%) 1,000 mls @ 125 mls/hr IV .Q8H [facility] Last Admin: 10/20/18 10:50 Dose: 125 mls/hr Levetiracetam (Keppra) 500 mg PO BID [facility] Last Admin: 10/20/18 17:17 Dose: 500 mg Metoclopramide HCl (Reglan) 10 mg PO TID [facility] Last Admin: 10/20/18 17:17 Dose: 10 mg Ondansetron HCl (Zofran Inj) 4 mg IVP Q6 PRN PRN Reason: Nausea/Vomiting Oxycodone HCl (Oxycodone Immediate Release Tab) 5 mg PO Q8 PRN PRN Reason: Pain, moderate (4-7) Last Admin: 10/20/18 00:31 Dose: 5 mg Pantoprazole Sodium (Protonix Inj) 40 mg IVP DAILY [facility] Last Admin: 10/20/18 09:53 Dose: 40 mg Polyethylene Glycol (Miralax) 17 gm PO BID [facility] Last Admin: 10/20/18 17:16 Dose: 17 gm Ropinirole HCl (Requip) 0.5 mg PO BID [facility] Last Admin: 10/20/18 17:17 Dose: 0.5 mg Sennosides (Senokot Tab) 8.6 mg PO DAILY [facility] Last Admin: 10/20/18 10:51 Dose: 8.6 mg Tizanidine HCl (Zanaflex) 4 mg PO TID [facility] Last Admin: 10/20/18 17:17 Dose: 4 mg Zaleplon (Sonata) 5 mg PO HS PRN PRN Reason: Insomnia - Labs Labs: 10/20/18 06:35 10/20/18 06:35 - Constitutional Appears: Non-toxic, No Acute Distress - Head Exam Head Exam: ATRAUMATIC, NORMOCEPHALIC - Eye Exam Eye Exam: EOMI, Normal appearance - ENT Exam ENT Exam: Mucous Membranes Moist - Respiratory Exam Respiratory Exam: Clear to Auscultation Bilateral. absent: Rhonchi, Wheezes, R espiratory Distress - Cardiovascular Exam Cardiovascular Exam: REGULAR RHYTHM, +S1, +S2 - GI/Abdominal Exam GI & Abdominal Exam: Normal Bowel Sounds, Soft. absent: Distended, Firm, Hernia, Rebound Additional comments: Mild epigastric and left lower quadrant tenderness to palpation - Extremities Exam Extremities exam: Positive for: normal inspection. Negative for: pedal edema, tenderness Additional comments: - Neurological Exam Neurological exam: Alert, CN II-XII Intact, Oriented x3 - Psychiatric Exam Psychiatric exam: Normal Affect, Normal Mood - Skin Skin Exam: Dry, Intact Assessment and Plan - Assessment and Plan (Free Text) Assessment: 53 year old female with PMHx Crohn's disease, gastritis, epilepsy, depression, anxiety, migraines, chronic knee pain presented with 5 days nausea, vomiting, and abdominal discomfort. She will be admitted for intractable vomiting and overflow diarrhea 2/2 opioid induced constipation. Plan: Intractable Vomiting and Overflow Diarrhea 2/2 Opioid Induced Constipation - Senokot and miralax - Hold home med percocet at this time - Liquid diet; advance as tolerated - c/w zofran prn - no indication for antibiotics at this time - CT A/P: retained fecal matter. No colitis or enteritis. Small hiatal hernia. Evidence of post-op changes. - UA negative - lactate trended and negative - Hx of crohn's disease however unlikely given presentation - Hx pyloric channel ulcer/PUD s/p Bilruth gastrectomy s/p vagotomy (2013) Microcytic anemia - Hgb 9.4; stable - monitor Chronic bilateral knee pain - home med percocet - Utox: +barbs, +benzos Anxiety/Depression - c/w Lexapro home med - c/w Klonopin home med Epilepsy - c/w Keppra 500 mg PO BID home med Migraines - Asymptomatic - c/w Fioricet home med ppx: ptx scd Diet: liquid Dispo: Monitor patient on remote tele. Case was discussed and reviewed with Attending Physician, Dr. Oh <Vikram Oh - Last Filed: 10/21/18 15:31> Objective - Vital Signs/Intake and Output Vital Signs (last 24 hours): Temp Pulse Resp BP Pulse Ox 98.1 F 76 18 133/75 97 10/21/18 06:00 10/21/18 06:00 10/21/18 06:00 10/21/18 06:00 10/21/18 06:00 Intake and Output: 10/21/18 10/21/18 06:59 18:59 Intake Total 1860 Output Total 400 Balance 1460 - Labs Labs: 10/21/18 07:15 10/21/18 07:15 Attending/Attestation - Attestation I have personally seen and examined this patient.: Yes I have fully participated in the care of the patient.: Yes I have reviewed all pertinent clinical information, including history, physical exam and plan: Yes
[2018-10-21] MEDS: Sodium Chloride 0.9% 1,000 ML IV SCH ×3 (00:59→09:18)
[2018-10-21] MEDS: Apap-Butalbital-Caffeine 325-50-40mg Tab PO PRN ×2 (05:05→13:23)
[2018-10-21 08:01] LABS: BASO # 0.02 K/mm3 (0.0-2.0); BASO % 0.4 % (0.0-3.0); EOS # 0.3 (0.0-0.7); EOS % 6.2 % (1.5-5.0); HEMOGLOBIN 9.2 g/dL (12.0-16.0); LYMPH # 2.6 (1.2-3.4); LYMPH % 51.9 % (22.0-35.0); MEAN CELL VOLUME 80.5 fl (80.0-105.0); MEAN CORPUSCULAR HEMOGLOBIN 24.9 pg (25.0-35.0); MEAN CORPUSCULAR HGB CONC 30.9 g/dl (31.0-37.0); MEAN PLATELET VOLUME 9.2 fl (7.0-11.0); MONO # 0.3 (0.1-0.6); RBC 3.7 10^6/uL (3.5-6.1); RED CELL DISTRIBUTION WIDTH 15.6 % (11.5-14.5)
[2018-10-21 08:06] VITALS: BP 133/75; PULSE 76; RESP 18; TEMP 98.1; O2SAT 97
[2018-10-21 08:10] LABS: ALB/GLOB RATIO 0.9 (1.1-1.8); ALBUMIN 2.8 g/dL (3.0-4.8); ALT/SGPT 29 U/L (7-56); AST/SGOT 17 U/L (14-36); BLOOD UREA NITROGEN 9 mg/dL (7-21); CALCIUM 8.6 mg/dL (8.4-10.5); GFR NON-AFRICAN AMERICAN > 60
[2018-10-21] MEDS: POLYETHYLENE GLYCOL 3350 17 GM/Dose PACKET PO SCH (09:14)
[2018-10-21] MEDS: oxyCODONE 5 mg Immediate Release Tab PO PRN (11:54)
--- NOTE | 2018-10-21 15:22 | CP.PCM.DIS ---
<Pal,Melecio - Last Filed: 10/21/18 15:13> Provider - Provider Date of Admission: 10/19/18 22:25 Attending physician: Loretta Chan MD Primary care physician: NO PRIMARY CARE PROVIDER Time Spent in preparation of Discharge (in minutes): 35 Hospital Course - Lab Results Lab Results: Micro Results 10/19/18 21:20 Urine,Clean Catch Urine Culture - Final No Growth (<1,000 CFU/ML) Most Recent Lab Values WBC 5.0 10^3/uL (4.5-11.0) 10/21/18 07:15 RBC 3.70 10^6/uL (3.5-6.1) 10/21/18 07:15 Hgb 9.2 g/dL (12.0-16.0) L 10/21/18 07:15 Hct 29.8 % (36.0-48.0) L 10/21/18 07:15 MCV 80.5 fl (80.0-105.0) 10/21/18 07:15 MCH 24.9 pg (25.0-35.0) L 10/21/18 07:15 MCHC 30.9 g/dl (31.0-37.0) L 10/21/18 07:15 RDW 15.6 % (11.5-14.5) H 10/21/18 07:15 Plt Count 369 10^3/uL (120.0-450.0) 10/21/18 07:15 MPV 9.2 fl (7.0-11.0) 10/21/18 07:15 Neut % (Auto) 35.5 % (50.0-68.0) L 10/21/18 07:15 Lymph % (Auto) 51.9 % (22.0-35.0) H 10/21/18 07:15 [place] % (Auto) 6.0 % (1.0-6.0) 10/21/18 07:15 Eos % (Auto) 6.2 % (1.5-5.0) H 10/21/18 07:15 Baso % (Auto) 0.4 % (0.0-3.0) 10/21/18 07:15 Lymph # (Auto) 2.6 (1.2-3.4) 10/21/18 07:15 [place] # (Auto) 0.3 (0.1-0.6) 10/21/18 07:15 Eos # (Auto) 0.3 (0.0-0.7) 10/21/18 07:15 Baso # (Auto) 0.02 K/mm3 (0.0-2.0) 10/21/18 07:15 Absolute Neuts (auto) 1.77 (1.4-6.5) 10/21/18 07:15 pO2 229 mm/Hg (30-55) H 10/20/18 06:35 VBG pH 7.54 (7.32-7.43) H 10/20/18 06:35 VBG pCO2 27.0 (40-60) L 10/20/18 06:35 VBG HCO3 23.1 mmol/l (21-28) 10/20/18 06:35 VBG Total CO2 23.9 mmol.L (22-28) 10/20/18 06:35 VBG O2 Sat (Calc) 94.5 % (40-65) H 10/20/18 06:35 VBG Base Excess 1.7 mmol/L (0.0-2.0) 10/20/18 06:35 VBG Potassium 3.7 mmol/L (3.6-5.2) 10/20/18 06:35 Sodium 139.0 mmol/L (132-148) 10/20/18 06:35 Chloride 111.0 mmol/L (98-107) H 10/20/18 06:35 Glucose 109 mg/dl (65-105) H 10/20/18 06:35 Lactate 1.0 mmol/L (0.7-2.1) 10/20/18 06:35 FiO2 21.0 % 10/20/18 06:35 Crit Value Called To Wendy more 10/20/18 06:35 Crit Value Called By Giancarlo 10/20/18 06:35 Blood Gas Notified Time 710 10/20/18 06:35 Sodium 140 mmol/L (132-148) 10/21/18 07:15 Potassium 3.8 mmol/L (3.6-5.0) 10/21/18 07:15 Chloride 111 mmol/L (98-107) H 10/21/18 07:15 Carbon Dioxide 22 mmol/L (21-33) 10/21/18 07:15 Anion Gap 11 (10-20) 10/21/18 07:15 BUN 9 mg/dL (7-21) 10/21/18 07:15 Creatinine 0.8 mg/dl (0.7-1.2) 10/21/18 07:15 Est GFR ( Amer) > 60 10/21/18 07:15 Est GFR (Non-Af Amer) > 60 10/21/18 07:15 Random Glucose 98 mg/dL (70-110) 10/21/18 07:15 Calcium 8.6 mg/dL (8.4-10.5) 10/21/18 07:15 Total Bilirubin 0.1 mg/dL (0.2-1.3) L 10/21/18 07:15 AST 17 U/L (14-36) 10/21/18 07:15 ALT 29 U/L (7-56) 10/21/18 07:15 Alkaline Phosphatase 107 U/L (38-126) 10/21/18 07:15 Total Protein 5.8 g/dL (5.8-8.3) 10/21/18 07:15 Albumin 2.8 g/dL (3.0-4.8) L 10/21/18 07:15 Globulin 3.0 gm/dL 10/21/18 07:15 Albumin/Globulin Ratio 0.9 (1.1-1.8) L 10/21/18 07:15 Lipase 33 U/L (23-300) 10/19/18 19:30 Venous Blood Potassium 3.7 mmol/L (3.6-5.2) 10/20/18 06:35 Urine Color Yellow (YELLOW) 10/19/18 20:30 Urine Appearance Clear (CLEAR) 10/19/18 20:30 Urine pH 6.0 (4.7-8.0) 10/19/18 20:30 Ur Specific [place] 1.010 (1.005-1.035) 10/19/18 20:30 Urine Protein Negative mg/dL (<30 mg/dL) 10/19/18 20:30 Urine Glucose (UA) Negative mg/dL (NEGATIVE) 10/19/18 20:30 Urine Ketones 15 mg/dL (NEGATIVE) H 10/19/18 20:30 Urine Blood Negative (NEGATIVE) 10/19/18 20:30 Urine Nitrate Negative (NEGATIVE) 10/19/18 20:30 Urine Bilirubin Negative (NEGATIVE) 10/19/18 20:30 Urine Urobilinogen 0.2 E.U./dL (<1 E.U./dL) 10/19/18 20:30 Ur Leukocyte Esterase [place]/uL (NEGATIVE) H 10/19/18 20:30 Urine RBC None /hpf (0-2) 10/19/18 20:30 Urine WBC 1 - 3 /hpf (0-6) 10/19/18 20:30 Ur Epithelial Cells 1 - 3 /hpf (0-5) 10/19/18 20:30 Urine Opiates Screen Negative (NEGATIVE) 10/20/18 02:30 Urine Methadone Screen Negative (NEGATIVE) 10/20/18 02:30 Ur Barbiturates Screen Positive (NEGATIVE) H 10/20/18 02:30 Ur Phencyclidine Scrn Negative (NEGATIVE) 10/20/18 02:30 Ur Amphetamines Screen Negative (NEGATIVE) 10/20/18 02:30 U Benzodiazepines Scrn Positive (NEGATIVE) H 10/20/18 02:30 U Oth Cocaine Metabols Negative (NEGATIVE) 10/20/18 02:30 U Cannabinoids Screen Negative (NEGATIVE) 10/20/18 02:30 - Hospital Course Hospital Course: Melecio Anna, PGY1 Discharge Summary for Dr. 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 Patient stated that she often has fluctuating GI symptoms as a result of her crohn's disease including nausea, vomiting, abdominal pain, diarrhea, and fluctuations in weight. However over the past 5 days specifically, her primary complaints were nausea, non-bloody bilious vomiting, and abdominal discomfort (epigastric and left lower quadrant). Patient admitted for intractable nausea, vomiting, and diarrhea. Nursing staff noticed that patient's diarrhea was actually semi-formed. CT A/P was evident for retaine d fecal matter and just chronic changes from her previous surgeries. Patient likely has overflow diarrhea 2/2 opioid induced constipation. Patient was placed on zofran for nausea and restarted on her home meds. Her opioids were held in order to relieve some of her symptoms. Patient's UA and UCx were negative. Utox was +benzo and +barbiturates. Her diet was advanced to full liquid diet. Although she subjectively still has nausea, she is tolerating her diet well which was also advanced to soft diet. She is eating well as per nursing staff. She has no signs of acute abdomen. To relieve her constipation she was given stool softeners. Patient is clinically improved and hemodynamically safe for discharge to home. She is discharged on stool softeners and zofran. She can follow up with her GI as outpatient. She ambulates well without any issues and is safe for discharge to home. Discharge Exam - Head Exam Head Exam: ATRAUMATIC, NORMOCEPHALIC - Eye Exam Eye Exam: Normal appearance Pupil Exam: NORMAL ACCOMODATION, PERRL - ENT Exam ENT Exam: Normal Exam - Respiratory Exam Respiratory Exam: Clear to PA & Lateral, NORMAL BREATHING PATTERN. absent: Accessory Muscle Use, Rales, Rhonchi, Wheezes - Cardiovascular Exam Cardiovascular Exam: RRR, +S1, +S2 - GI/Abdominal Exam GI & Abdominal Exam: Normal Bowel Sounds, Soft. absent: Firm, Guarding, Organomegaly, Rebound, Tenderness - Extremities Exam Extremities exam: normal capillary refill, normal inspection, pedal pulses present - Back Exam Back exam: NORMAL INSPECTION - Neurological Exam Neurological exam: Alert, CN II-XII Intact, Normal Gait, Oriented x3, Reflexes Normal - Psychiatric Exam Psychiatric exam: Normal Affect, Normal Mood - Skin Skin Exam: Dry, Intact, Normal Color, Warm Discharge Plan - Discharge Medications Prescriptions: Ondansetron ODT [Zofran ODT] 4 mg SL Q6 PRN #20 odt PRN Reason: Nausea/Vomiting Polyethylene Glycol 3350 [Miralax] 17 gm PO BID #10 packet Sennosides A and B [Senokot Tab] 8.6 mg PO DAILY #5 tab - Follow Up Plan Condition: FAIR Disposition: HOME/ ROUTINE Instructions: Constipation, Adult (DC) Additional Instructions: Please follow-up with your PMD, Dr Lacey, within 7 days of discharge. Please follow-up with your change manager, Dr Barrett, within 7 days of discharge. As for your reglan regimen, it is a short term treatment. Please follow up with Dr Barrett regarding the length of the reglan treatment You may resume your home medications as prescribed. Your symptoms are likely related to constipation from your pain medication. You are being given these medications on discharge: - Miralax 17g one packet twice a day for 5 days - Senokot 8.6 mg one tab daily for 5 days - Zofran 4mg under the tongue every 6 hours as needed (for nausea) Please return to the nearest emergency department if your symptoms worsen or reoccur. Referrals: Fady Barrett MD [Medical Doctor] - 7 Days Mindy MERCEDES,Clive Butcher APN [Non-Staff] - 7 Days <Vikram Oh - Last Filed: 10/21/18 15:30> Provider - Provider Date of Admission: 10/19/18 22:25 Attending physician: Loretta Chan MD Primary care physician: NO PRIMARY CARE PROVIDER Hospital Course - Lab Results Lab Results: Micro Results 10/19/18 21:20 Urine,Clean Catch Urine Culture - Final No Growth (<1,000 CFU/ML) Most Recent Lab Values WBC 5.0 10^3/uL (4.5-11.0) 10/21/18 07:15 RBC 3.70 10^6/uL (3.5-6.1) 10/21/18 07:15 Hgb 9.2 g/dL (12.0-16.0) L 10/21/18 07:15 Hct 29.8 % (36.0-48.0) L 10/21/18 07:15 MCV 80.5 fl (80.0-105.0) 10/21/18 07:15 MCH 24.9 pg (25.0-35.0) L 10/21/18 07:15 MCHC 30.9 g/dl (31.0-37.0) L 10/21/18 07:15 RDW 15.6 % (11.5-14.5) H 10/21/18 07:15 Plt Count 369 10^3/uL (120.0-450.0) 10/21/18 07:15 MPV 9.2 fl (7.0-11.0) 10/21/18 07:15 Neut % (Auto) 35.5 % (50.0-68.0) L 10/21/18 07:15 Lymph % (Auto) 51.9 % (22.0-35.0) H 10/21/18 07:15 [place] % (Auto) 6.0 % (1.0-6.0) 10/21/18 07:15 Eos % (Auto) 6.2 % (1.5-5.0) H 10/21/18 07:15 Baso % (Auto) 0.4 % (0.0-3.0) 10/21/18 07:15 Lymph # (Auto) 2.6 (1.2-3.4) 10/21/18 07:15 [place] # (Auto) 0.3 (0.1-0.6) 10/21/18 07:15 Eos # (Auto) 0.3 (0.0-0.7) 10/21/18 07:15 Baso # (Auto) 0.02 K/mm3 (0.0-2.0) 10/21/18 07:15 Absolute Neuts (auto) 1.77 (1.4-6.5) 10/21/18 07:15 pO2 229 mm/Hg (30-55) H 10/20/18 06:35 VBG pH 7.54 (7.32-7.43) H 10/20/18 06:35 VBG pCO2 27.0 (40-60) L 10/20/18 06:35 VBG HCO3 23.1 mmol/l (21-28) 10/20/18 06:35 VBG Total CO2 23.9 mmol.L (22-28) 10/20/18 06:35 VBG O2 Sat (Calc) 94.5 % (40-65) H 10/20/18 06:35 VBG Base Excess 1.7 mmol/L (0.0-2.0) 10/20/18 06:35 VBG Potassium 3.7 mmol/L (3.6-5.2) 10/20/18 06:35 Sodium 139.0 mmol/L (132-148) 10/20/18 06:35 Chloride 111.0 mmol/L (98-107) H 10/20/18 06:35 Glucose 109 mg/dl (65-105) H 10/20/18 06:35 Lactate 1.0 mmol/L (0.7-2.1) 10/20/18 06:35 FiO2 21.0 % 10/20/18 06:35 Crit Value Called To Wendy more 10/20/18 06:35 Crit Value Called By Giancarlo 10/20/18 06:35 Blood Gas Notified Time 710 10/20/18 06:35 Sodium 140 mmol/L (132-148) 10/21/18 07:15 Potassium 3.8 mmol/L (3.6-5.0) 10/21/18 07:15 Chloride 111 mmol/L (98-107) H 10/21/18 07:15 Carbon Dioxide 22 mmol/L (21-33) 10/21/18 07:15 Anion Gap 11 (10-20) 10/21/18 07:15 BUN 9 mg/dL (7-21) 10/21/18 07:15 Creatinine 0.8 mg/dl (0.7-1.2) 10/21/18 07:15 Est GFR ( Amer) > 60 10/21/18 07:15 Est GFR (Non-Af Amer) > 60 10/21/18 07:15 Random Glucose 98 mg/dL (70-110) 10/21/18 07:15 Calcium 8.6 mg/dL (8.4-10.5) 10/21/18 07:15 Total Bilirubin 0.1 mg/dL (0.2-1.3) L 10/21/18 07:15 AST 17 U/L (14-36) 10/21/18 07:15 ALT 29 U/L (7-56) 10/21/18 07:15 Alkaline Phosphatase 107 U/L (38-126) 10/21/18 07:15 Total Protein 5.8 g/dL (5.8-8.3) 10/21/18 07:15 Albumin 2.8 g/dL (3.0-4.8) L 10/21/18 07:15 Globulin 3.0 gm/dL 10/21/18 07:15 Albumin/Globulin Ratio 0.9 (1.1-1.8) L 10/21/18 07:15 Lipase 33 U/L (23-300) 10/19/18 19:30 Venous Blood Potassium 3.7 mmol/L (3.6-5.2) 10/20/18 06:35 Urine Color Yellow (YELLOW) 10/19/18 20:30 Urine Appearance Clear (CLEAR) 10/19/18 20:30 Urine pH 6.0 (4.7-8.0) 10/19/18 20:30 Ur Specific [place] 1.010 (1.005-1.035) 10/19/18 20:30 Urine Protein Negative mg/dL (<30 mg/dL) 10/19/18 20:30 Urine Glucose (UA) Negative mg/dL (NEGATIVE) 10/19/18 20:30 Urine Ketones 15 mg/dL (NEGATIVE) H 10/19/18 20:30 Urine Blood Negative (NEGATIVE) 10/19/18 20:30 Urine Nitrate Negative (NEGATIVE) 10/19/18 20:30 Urine Bilirubin Negative (NEGATIVE) 10/19/18 20:30 Urine Urobilinogen 0.2 E.U./dL (<1 E.U./dL) 10/19/18 20:30 Ur Leukocyte Esterase [place]/uL (NEGATIVE) H 10/19/18 20:30 Urine RBC None /hpf (0-2) 10/19/18 20:30 Urine WBC 1 - 3 /hpf (0-6) 10/19/18 20:30 Ur Epithelial Cells 1 - 3 /hpf (0-5) 10/19/18 20:30 Urine Opiates Screen Negative (NEGATIVE) 10/20/18 02:30 Urine Methadone Screen Negative (NEGATIVE) 10/20/18 02:30 Ur Barbiturates Screen Positive (NEGATIVE) H 10/20/18 02:30 Ur Phencyclidine Scrn Negative (NEGATIVE) 10/20/18 02:30 Ur Amphetamines Screen Negative (NEGATIVE) 10/20/18 02:30 U Benzodiazepines Scrn Positive (NEGATIVE) H 10/20/18 02:30 U Oth Cocaine Metabols Negative (NEGATIVE) 10/20/18 02:30 U Cannabinoids Screen Negative (NEGATIVE) 10/20/18 02:30 Attending/Attestation - Attestation I have personally seen and examined this patient.: Yes I have fully participated in the care of the patient.: Yes I have reviewed all pertinent clinical information, including history, physical exam and plan: Yes Notes (Text): 10/21/18 15:27 Patient was seen and examined with medical secretary receptionist. 53 year old female with past medical history ofmigraines, Crohns ?, and polysubs tance abuse who presented with complaint of abdominal pain, nauseas, vomiting and diarrhea CT abdomen /pelvis showed constipation. She was started on laxative. During hospital stay she had no further episodes of nausea/vomiting. Patient abdominal pain has improved.She is tolerating food. Patient will be discharged home and will follow up with PCP
[2018-10-22] MEDS ORDERED: Pantoprazole 40 mg EC Tab PO SCH (07:30)
== END 2018-10-21 15:22 | disposition home or self-care (01) ==
LOC: ED 18:06 → ERH 22:25 → 3RNO 23:15
PROVIDERS: ADMIT Internal Medicine; ATTEND Internal Medicine
DX: K52.9 Noninfective gastroenteritis and colitis, unspecified (principal); K50.918 Crohn's disease, unspecified, with other complication; N39.0 Urinary tract infection, site not specified; F31.9 Bipolar disorder, unspecified; I10 Essential (primary) hypertension; G43.909 Migraine, unspecified, not intractable, without status migrainosus; G40.909 Epilepsy, unspecified, not intractable, without status epilepticus; F13.20 Sedative, hypnotic or anxiolytic dependence, uncomplicated; G89.29 Other chronic pain; D63.8 Anemia in other chronic diseases classified elsewhere; K59.03 Drug induced constipation; T40.2X5A Adverse effect of other opioids, initial encounter; M25.562 Pain in left knee; M25.561 Pain in right knee; F41.9 Anxiety disorder, unspecified; Z88.0 Allergy status to penicillin; Z87.891 Personal history of nicotine dependence; Z87.11 Personal history of peptic ulcer disease
CPT/HCPCS: 36415; 74177; 80053; 80324; 80345; 80346; 80349; 80353; 80358; 80361; 81001; 81025; 82803; 83690; 83992; 85025; 87086; 93005; 96361; 96374; 96375; 96376; 99284; C9113; G0378; J2405; J7030; Q9967

== ENCOUNTER 2018-10-27 16:09 | Emergency (ER) | payer MEDICAID ==
[2018-10-27 16:35] VITALS: BP 103/40; PULSE 91; RESP 18; TEMP 98.2; O2SAT 99
[2018-10-27 16:51] VITALS: BMI 20.1
[2018-10-27] MEDS ORDERED: Sodium Chloride 0.9% 1,000 ML IV STA (16:51)
--- NOTE | 2018-10-27 17:02 | ED PDOC ---
Arrival/HPI <Kaylie Baueranne Fabrizio - Last Filed: 10/27/18 17:24> - General Historian: Patient - History of Present Illness Narrative History of Present Illness (Text): 10/27/18 16:57 Patient is a 53yo F with PMH Chron's disease, gastritis, epilepsy, depression, anxiety, migraines, chronic knee pain presenting to ED for drowsiness after taking 6 tabs of Fioricet. She reports having a migraine this morning, with pain in the forehead and behind the eyes prompting her to take 2 tabs of Fioricet at 11am. She then fell asleep and woke up around 1pm continuing to have a headache so she took 2 more tabs. She fell asleep and then took another 2 tabs at 4pm. She says her migraine has now resolved. Patient reports feeling drowsy. She denies taking any other pills with acetaminophen yesterday. She denies chest pain, shortness of breath, nausea, vomiting, diarrhea, dysuria, loss of consciousness, or focal weakness. She reports numbness in the b/l feet which is chronic and unchanged. Time/Duration: 4-6 hours Symptom Onset: Gradual Symptom Course: Unchanged <Berta Agarwal - Last Filed: 10/27/18 17:29> - General Chief Complaint: Altered Mental Status Time Seen by Provider: 10/27/18 16:28 Past Medical History - Past History Past History: Non-Contributing - Infectious Disease Hx of Infectious Diseases: None - Tetanus Immunization Tetanus Immunization: Unknown - Past Medical History Past Medical History: No Previous - Cardiac Hx Cardiac Disorders: Yes Hx Hypertension: Yes - Pulmonary Hx Respiratory Disorders: No - Neurological Hx Neurological Disorder: Yes Hx Migraine: Yes Hx Seizures: Yes Other/Comment: Hx Cerebral Contusion - HEENT Hx HEENT Disorder: No - Renal Hx Renal Disorder: No - Endocrine/Metabolic Hx Endocrine Disorders: No - Hematological/Oncological Hx Blood Disorders: No - Integumentary Hx Dermatological Disorder: No - Musculoskeletal/Rheumatological Hx Musculoskeletal Disorders: Yes Hx Arthritis: Yes Hx Falls: Yes Hx Fractures: Yes (ankle and knee) - Gastrointestinal Hx Gastrointestinal Disorders: Yes Hx Crohn's Disease: Yes Hx Diverticulitis: Yes Hx Pancreatitis: Yes Other/Comment: Hx gastroparesis. Hx Volvulus. Hx Ischemic Enteritis - Genitourinary/Gynecological Hx Genitourinary Disorders: Yes Other/Comment: Hx endometriosis - Psychiatric Hx Psychophysiologic Disorder: Yes Hx Anxiety: Yes Hx Bipolar Disorder: Yes Hx Depression: Yes Hx Post Traumatic Stress Disorder: Yes Hx Substance Use: Yes (Hx Opiod overdose) - Surgical History Other/Comment: L knee surgery jul 21, 2017 - Anesthesia Hx Anesthesia: Yes Hx Anesthesia Reactions: No Hx Malignant Hyperthermia: No - Suicidal Assessment Feels Threatened In Home Enviroment: No <Breta Agarwal - Last Filed: 10/27/18 17:29> Family/Social History Family/Social History: CAD/GA, Neoplasm/Cancer Smoking Status: Current Some Days Smoker Hx Alcohol Use: No Hx Substance Use: Yes (Hx Opiod overdose) Hx Substance Use Treatment: No <Berta Agarwal - Last Filed: 10/27/18 17:29> Allergies/Home Meds <Nirmala Bauer - Last Filed: 10/27/18 17:24> <Berta Agarwal - Last Filed: 10/27/18 17:29> Allergies/Adverse Reactions: Allergies Penicillins Allergy (Intermediate, Verified 10/19/18 18:11) HIVES Home Medications: Home Meds Medication Instructions Recorded Confirmed Acetaminophen/Butalbital/Caf 1 tab PO TID PRN 08/20/18 10/20/18 [Fioricet] oxyCODONE [oxyCODONE Immediate 10 mg PO Q6 PRN 08/20/18 10/20/18 Release Tab] tiZANidine [Zanaflex] 4 mg PO TID 08/20/18 10/20/18 Albuterol HFA [Ventolin HFA 90 1 puff INH QID PRN 10/20/18 10/20/18 mcg/actuation (8 g)] Metoclopramide [Reglan] 10 mg PO TID 10/20/18 10/20/18 Ropinirole HCl [Requip] 0.5 mg PO BID 10/20/18 10/20/18 Zaleplon [Sonata] 5 mg PO HS PRN 10/20/18 10/20/18 diaZEpam [Valium] 5 mg PO TID PRN 10/20/18 10/20/18 Review of Systems - Review of Systems Constitutional: Fatigue. absent: Fevers Eyes: Vision Changes ENT: Normal Respiratory: Normal. absent: SOB Cardiovascular: Normal. absent: Chest Pain, Palpitations, Syncope Gastrointestinal: Abdominal Pain. absent: Diarrhea, Nausea, Vomiting Genitourinary Female: Normal. absent: Dysuria Musculoskeletal: Normal Skin: Normal Neurological: Dizziness. absent: Focal Weakness Endocrine: Normal Hemo/Lymphatic: Normal <Berta Agarwal - Last Filed: 10/27/18 17:29> Physical Exam Vital Signs Temp Pulse Resp BP Pulse Ox 10/27/18 16:34 98.2 F 91 H 18 103/40 L 99 <Ermelinda Bauere Fabrizio - Last Filed: 10/27/18 17:24> Vital Signs Reviewed: Yes Vital Signs Temp Pulse Resp BP Pulse Ox 10/27/18 16:34 98.2 F 91 H 18 103/40 L 99 Temperature: Afebrile Blood Pressure: Normal Pulse: Regular Respiratory Rate: Normal Appearance: Positive for: Well-Appearing, Non-Toxic, Comfortable Pain Distress: None Mental Status: Positive for: Alert and Oriented X 3 - Systems Exam Head: Present: Atraumatic, Normocephalic Pupils: Present: PERRL Extroacular Muscles: Present: EOMI Conjunctiva: Present: Normal Mouth: Present: Moist Mucous Membranes Neck: Present: Normal Range of Motion Respiratory/Chest: Present: Clear to Auscultation, Good Air Exchange. No: R espiratory Distress, Accessory Muscle Use Cardiovascular: Present: Regular Rate and Rhythm, Normal S1, S2. No: Murmurs, Rub, Gallop Abdomen: Present: Tenderness, Normal Bowel Sounds, Scars. No: Distention, Peritoneal Signs Upper Extremity: Present: Normal Inspection, Norm 2-Pt Discrimination. No: Cyanosis, Edema Lower Extremity: Present: Normal Inspection. No: Edema Neurological: Present: GCS=15, CN II-XII Intact, Speech Normal, Motor Func Grossly Intact, Gait Normal (patient ambulating normally without overt difficulty) Skin: Present: Normal Color. No: Warm, Dry, Rashes Psychiatric: Present: Alert, Oriented x 3 <Berta Agarwal - Last Filed: 10/27/18 17:29> Medical Decision Making ED Course and Treatment: 10/27/18 17:24 Patient seen by resident and then evaluated by me. Spoke to poison control who reported that patient could be discharged. She reports that she came to the ED because her brother was concerned that she took too many fiorcet. She has no complaints in ED and is ambulating around the ER. Cleared for discharge. <Nirmala Bauer - Last Filed: 10/27/18 17:24> ED Course and Treatment: 10/27/18 17:09 Poison control called and report given. They report no concern for overdose or organ damage at this time considering amount of fioricet ingested and patient's clinical status. Lab work not necessary as per poison control. <Berta Agarwal - Last Filed: 10/27/18 17:29> Disposition/Present on Arrival - Present on Arrival Any Indicators Present on Arrival: No - Disposition Have Diagnosis and Disposition been Completed?: Yes <Nirmala Bauer - Last Filed: 10/27/18 17:24> - Present on Arrival Any Indicators Present on Arrival: No History of DVT/PE: No History of Uncontrolled Diabetes: No Urinary Catheter: No History Surgical Site Infection Following: None - Disposition Have Diagnosis and Disposition been Completed?: Yes Disposition Time: 17:26 <Berta Agarwal - Last Filed: 10/27/18 17:29> - Disposition Diagnosis: Medication overdose Disposition: HOME/ ROUTINE Patient Problems: Current Active Problems Problem Status Onset Medication overdose Acute Condition: STABLE Discharge Instructions (ExitCare): Acetaminophen Poisoning Additional Instructions: Please follow up with your primary care physician. If symptoms worsen, return to the emergency department. Referrals: FAMILY PROVIDER,NO [Primary Care Provider] - Follow up with primary Forms: [employer] (Frisian)
--- NOTE | 2018-10-27 17:37 | CARD ---
APPROVED REPORT Date of service: 10/27/2018 EKG Measurement Heart [id number] <Conclusion> Normal sinus rhythm Normal ECG
== END 2018-10-27 18:01 | disposition home or self-care (01) ==
LOC: ED 16:09
DX: T50.991A Poisoning by other drugs, medicaments and biological substances, accidental (unintentional), initial encounter (principal); Y92.9 Unspecified place or not applicable; I10 Essential (primary) hypertension; F17.210 Nicotine dependence, cigarettes, uncomplicated

== ENCOUNTER 2018-11-13 17:16 | Inpatient (IN) | payer MEDICAID ==
[2018-11-13 17:18] VITALS: BMI 20.1
--- NOTE | 2018-11-13 17:48 | ED PDOC ---
Arrival/HPI - General Chief Complaint: Anxiety Time Seen by Provider: 11/13/18 17:27 Historian: Patient - History of Present Illness Narrative History of Present Illness (Text): 11/13/18 17:45 53 yo female with a h/o Anxiety, Chrohn's Diseases, Epilepsy, Depression presents to the ED c/o anxiety that is not improving with medications at home. She takes diazepam and geodon which she took today. She is stressed out because she lost 2 families fairly recently and her grandmother is now on hospice. She states it feels like her anxiety which she describes as jittery, "on edge", having a heaviness in her chest, and hearing voices. Voices speaking to her but not telling her to do any harm. She denies SI or HI. No visual hallucinations. No abdominal pain or rectal bleeding. [facility] Past Medical History - Provider Review Nursing Documentation Reviewed: Yes - Past History Past History: Non-Contributing - Infectious Disease Hx of Infectious Diseases: None - Tetanus Immunization Tetanus Immunization: Unknown - Past Medical History Past Medical History: No Previous - Cardiac Hx Cardiac Disorders: Yes Hx Hypertension: Yes - Pulmonary Hx Respiratory Disorders: No - Neurological Hx Neurological Disorder: Yes Hx Migraine: Yes Hx Seizures: Yes Other/Comment: Hx Cerebral Contusion - HEENT Hx HEENT Disorder: No - Renal Hx Renal Disorder: No - Endocrine/Metabolic Hx Endocrine Disorders: No - Hematological/Oncological Hx Blood Disorders: No - Integumentary Hx Dermatological Disorder: No - Musculoskeletal/Rheumatological Hx Musculoskeletal Disorders: Yes Hx Arthritis: Yes Hx Falls: Yes Hx Fractures: Yes (ankle and knee) - Gastrointestinal Hx Gastrointestinal Disorders: Yes Hx Crohn's Disease: Yes Hx Diverticulitis: Yes Hx Pancreatitis: Yes Other/Comment: Hx gastroparesis. Hx Volvulus. Hx Ischemic Enteritis - Genitourinary/Gynecological Hx Genitourinary Disorders: Yes Other/Comment: Hx endometriosis - Psychiatric Hx Psychophysiologic Disorder: Yes Hx Anxiety: Yes Hx Bipolar Disorder: Yes Hx Depression: Yes Hx Post Traumatic Stress Disorder: Yes Hx Substance Use: Yes (Hx Opiod overdose) - Surgical History Other/Comment: L knee surgery jul 21, 2017 - Anesthesia Hx Anesthesia: Yes Hx Anesthesia Reactions: No Hx Malignant Hyperthermia: No - Suicidal Assessment Feels Threatened In Home Enviroment: No Family/Social History - Physician Review Nursing Documentation Reviewed: Yes Family/Social History: No Known Family HX Smoking Status: Current Some Days Smoker Hx Alcohol Use: No Hx Substance Use: Yes (Hx Opiod overdose) Hx Substance Use Treatment: No Allergies/Home Meds Allergies/Adverse Reactions: Allergies Penicillins Allergy (Intermediate, Verified 11/13/18 17:30) HIVES Home Medications: Home Meds Medication Instructions Recorded Confirmed Acetaminophen/Butalbital/Caf 1 tab PO TID PRN 08/20/18 10/20/18 [Fioricet] oxyCODONE [oxyCODONE Immediate 10 mg PO Q6 PRN 08/20/18 10/20/18 Release Tab] tiZANidine [Zanaflex] 4 mg PO TID 08/20/18 10/20/18 Albuterol HFA [Ventolin HFA 90 1 puff INH QID PRN 10/20/18 10/20/18 mcg/actuation (8 g)] Metoclopramide [Reglan] 10 mg PO TID 10/20/18 10/20/18 Ropinirole HCl [Requip] 0.5 mg PO BID 10/20/18 10/20/18 Zaleplon [Sonata] 5 mg PO HS PRN 10/20/18 10/20/18 diaZEpam [Valium] 5 mg PO TID PRN 10/20/18 10/20/18 Review of Systems - Physician Review All systems were reviewed & negative as marked: Yes - Review of Systems Constitutional: Normal Eyes: Normal ENT: Normal Respiratory: Normal Cardiovascular: Normal Gastrointestinal: Normal Genitourinary Female: Normal Musculoskeletal: Normal Skin: Normal Neurological: Normal Endocrine: Normal Hemo/Lymphatic: Normal Psychiatric: Anxiety. absent: Depression, Suicidal Ideation Physical Exam Vital Signs Reviewed: Yes Vital Signs Temp Pulse Resp BP Pulse Ox 11/13/18 17:18 98.1 F 109 H 18 149/91 H 98 Temperature: Afebrile Blood Pressure: Hypertensive Pulse: Tachycardic Respiratory Rate: Normal Appearance: Positive for: Well-Appearing, Non-Toxic, Comfortable Pain Distress: None Mental Status: Positive for: Alert and Oriented X 3 - Systems Exam Head: Present: Atraumatic, Normocephalic Pupils: Present: PERRL Extroacular Muscles: Present: EOMI Conjunctiva: Present: Normal Mouth: Present: Moist Mucous Membranes Neck: Present: Normal Range of Motion Respiratory/Chest: Present: Clear to Auscultation, Good Air Exchange. No: Respiratory Distress, Accessory Muscle Use Cardiovascular: Present: Regular Rate and Rhythm, Normal S1, S2. No: Murmurs Abdomen: No: Tenderness, Distention, Peritoneal Signs Back: Present: Normal Inspection Upper Extremity: Present: Normal Inspection. No: Cyanosis, Edema Lower Extremity: Present: Normal Inspection. No: Edema Neurological: Present: GCS=15, CN II-XII Intact, Speech Normal, Motor Func Grossly Intact, Normal Sensory Function Skin: Present: Warm, Dry, Normal Color. No: Rashes Psychiatric: Present: Alert, Oriented x 3, Normal Insight, Normal Concentration, Anxious Medical Decision Making ED Course and Treatment: 11/13/18 17:49 53 yo female with anxiety and auditory hallucinations -- labs -- EKG -- CXR -- AES evaluation 11/13/18 18:23 EKG: Sinus tachy at 105bpm with no ST elevations, nl intervals Patient signed out to Dr. Nubia Maldonado to f/u CXR, Labs, UA, Utox, PES evaluation. - RAD Interpretation Radiology Orders: 11/13/18 17:44 CHEST PORTABLE [RAD] Stat Disposition/Present on Arrival - Present on Arrival Any Indicators Present on Arrival: No History of DVT/PE: No History of Uncontrolled Diabetes: No Urinary Catheter: No History of Decub. Ulcer: No History Surgical Site Infection Following: None - Disposition Have Diagnosis and Disposition been Completed?: No Diagnosis: Anxiety Disposition Time: 18:24 Condition: GOOD Forms: [employer] ([employer]ian)
[2018-11-13 18:36] LABS: BASO # 0.02 K/mm3 (0.0-2.0); BASO % 0.3 % (0.0-3.0); EOS # 0.3 (0.0-0.7); EOS % 4.9 % (1.5-5.0); HEMOGLOBIN 10.4 g/dL (12.0-16.0); LYMPH # 2.6 (1.2-3.4); LYMPH % 37.1 % (22.0-35.0); MEAN CELL VOLUME 82.2 fl (80.0-105.0); MEAN CORPUSCULAR HEMOGLOBIN 25.7 pg (25.0-35.0); MEAN CORPUSCULAR HGB CONC 31.2 g/dl (31.0-37.0); MEAN PLATELET VOLUME 10.1 fl (7.0-11.0); MONO # 0.4 (0.1-0.6); MONO % 6.1 % (1.0-6.0); RBC 4.05 10^6/uL (3.5-6.1); RED CELL DISTRIBUTION WIDTH 15.9 % (11.5-14.5)
[2018-11-13 18:45] LABS: ACETAMINOPHEN < 10.0 ug/ml (10.0-20.0); SALICYLATE < 1 mg/dL (2.0-20.0)
--- NOTE | 2018-11-13 19:06 | ED PDOC ---
Physical Exam Vital Signs Temp Pulse Resp BP Pulse Ox 11/13/18 17:18 98.1 F 109 H 18 149/91 H 98 - Systems Exam Head: Present: Atraumatic, Normocephalic Pupils: Present: PERRL Extroacular Muscles: Present: EOMI Mouth: Present: Moist Mucous Membranes Pharnyx: Present: Normal Nose (Internal): Present: Normal Inspection Neck: Present: Normal Range of Motion Respiratory/Chest: Present: Clear to Auscultation, Good Air Exchange Cardiovascular: Present: Regular Rate and Rhythm Abdomen: No: Tenderness, Distention Back: Present: Normal Inspection. No: CVA Tenderness, Midline Tenderness Upper Extremity: Present: Normal Inspection Lower Extremity: Present: Normal Inspection Neurological: Present: GCS=15, CN II-XII Intact, Speech Normal, Gait Normal Skin: Present: Warm, Dry Medical Decision Making ED Course and Treatment: 53 F yr old female w/ hx of anxiety p/w auditory hallucinations and anxiety. Signed out to me by Dr. Claros pending labs, imaging, medical clearance for PES evaluation. Pt in [facility] at this time, pending xrays, without any complaints. 11/13/18 19:28 CXR unremarkable 11/13/18 19:53 uti on labs, labs otherwise largely unremarkable, NO CVAT / midline pain or back pain Medically clear for PES evaluation 11/13/18 20:56 Endrosed to pt to followup with Urologist regarding blood in urine and UTI pt in [facility], accepted by Dr. Fierro service (PSYCH) - RAD Interpretation Radiology Orders: 11/13/18 17:44 CHEST PORTABLE [RAD] Stat - Medication Orders Current Medication Orders: Discontinued Medications Lorazepam (Ativan) 1 mg PO ONCE ONE; Protocol Stop: 11/13/18 17:45 Last Admin: 11/13/18 18:33 Dose: 1 mg Disposition/Present on Arrival - Present on Arrival Any Indicators Present on Arrival: No History of DVT/PE: No History of Uncontrolled Diabetes: No Urinary Catheter: No History of Decub. Ulcer: No History Surgical Site Infection Following: None - Disposition Have Diagnosis and Disposition been Completed?: Yes Diagnosis: Anxiety, UTI (urinary tract infection), Depression, Hematuria Disposition Time: 19:54 Patient Problems: Current Active Problems Problem Status Onset UTI (urinary tract infection) Acute Anxiety Chronic Condition: GOOD Discharge Instructions (ExitCare): Urinary Tract Infections in Adults, Blood in the Urine (Hematuria), Adult (DC) Referrals: Kye Frias MD [Staff Provider] - Follow up with primary Forms: [email or web address] (Thai)
[2018-11-13 19:08] LABS: ALB/GLOB RATIO 1.3 (1.1-1.8); ALT/SGPT 73 U/L (7-56); AST/SGOT 34 U/L (14-36); BLOOD UREA NITROGEN 24 mg/dL (7-21); CALCIUM 9.4 mg/dL (8.4-10.5); GFR NON-AFRICAN AMERICAN 52
[2018-11-13 19:22] LABS: URINE BILIRUBIN NEGATIVE (NEGATIVE); URINE BLOOD TRACE-INTACT (NEGATIVE); URINE GLUCOSE (UA) NEGATIVE (NEGATIVE); URINE LEUKOCYTE ESTERASE MODERATE Leu/uL (NEGATIVE); URINE PROTEIN NEGATIVE mg/dL (<30 mg/dL); URINE UROBILINOGEN 0.2 E.U./dL (<1 E.U./dL)
[2018-11-13 19:25] LABS: URINE APPEARANCE CLEAR (CLEAR); URINE COLOR LIGHT YELLOW (YELLOW)
[2018-11-13 19:32] LABS: URINE HYALINE CAST 0 - 2 /hpf; URINE RBC 0 - 2 /hpf (0-2)
[2018-11-13 19:40] LABS: BARBITURATES, UR NEGATIVE (NEGATIVE); BENZODIAZEPINES, UR POSITIVE (NEGATIVE); OPIATES, UR NEGATIVE (NEGATIVE); PHENCYCLIDINE, UR NEGATIVE (NEGATIVE)
[2018-11-13 19:57] VITALS: O2SAT 100
[2018-11-13] MEDS ORDERED: Tmp-Smz 800 mg-160 mg DS Tab PO STA (20:02)
--- NOTE | 2018-11-14 06:00 | PCM.BM ---
<Rio Pereyra - Last Filed: 11/14/18 05:58> Treatment Plan Problems - Problems identified on initial assessmt Ineffective coping Date Initiated: 11/13/18 Time Initiated: 22:45 Assessment reference: NA Status: Active Priority: 1 Altered sleep pattern Date Initiated: 11/13/18 Time Initiated: 22:50 Assessment reference: NA Status: Active Priority: 2 Low motivation to change Date Initiated: 11/13/18 Time Initiated: 23:55 Assessment reference: NA Status: Active Priority: 3 Treatment assets and liabiliti Patient Assests: cooperative, insightful, self-reliant, ADL independent, negotiates basic needs, cognitively intact Patient Liabilities: live alone, substance abuse, medical problems - Milieu Protocol Maintain good personal hygiene: daily Encourage regular showers, daily Remind patient to perform daily oral care, daily Assist patient to perform ADL's Conduct patient checks and document Observation sheet: Q15 minutes Maintain personal safety: daily Educate patient to report safety concerns to staff, daily Monitor environment for contraband/sharps Medication safety: Monitor for expected outcome, potential side effects: daily, Assess barriers to learning: daily, Assess readiness for medication education: daily Milieu Narrative: 11/13/18 18:23 EKG: Sinus tachy at 105bpm with no ST elevations, nl intervals Family Contact Family involvement: Family/SO is involved Family contact: Patient agrees to contact - Goals for Treatment Patient goals for treatment: To get better Discharge/Continuing Care - Education Needs Education Needs: Patient Medication, Patient Diagnosis/Disease Process, Patient Coping Skills - Discharge Discharge Criteria: Normal sleep pattern - Treatment Team Participation Patient/Family/SO Statement: 11/13/18 18:23 EKG: Sinus tachy at 105bpm with no ST elevations, nl intervals <Gucci Grace - Last Filed: 11/14/18 09:48> - Diagnosis (1) Anxiety Status: Chronic Interventions: * group, milieu and supportive tx * SW consultation for discharge plan and social issues * valium 5 mg po q8 for anxiety * I have reviewed indications, side effects and risks of dependency and t olerance with patient on multiple occasions. I also reviewed risks of respiratory depression and with overdose or when taken concurrently with other benzos, opiates, alcohol or sedatives. I also warned about brain fog/memory issues associated with this medication when half lives accumulate and advised patient to skip a dose if she experiences this symptoms. * Geodon to 40 mg po BID with food to help with lability/mood control . This may also be beneficial off-label for anxiety. ~AIMS completed on 04/11/18 and then again 11/14/18. Patient scored zero on all movement scales. * Lexapro 20 mg po daily for depression and anxiety * Sonata 20 mg po HS for insomnia 11/14/18 09:48 (2) Depressed Status: Chronic Interventions: * group, milieu and supportive tx * SW consultation for discharge plan and social issues * valium 5 mg po q8 for anxiety * I have reviewed indications, side effects and risks of dependency and tolerance with patient on multiple occasions. I also reviewed risks of respiratory depression and with overdose or when taken concurrently with other benzos, opiates, alcohol or sedatives. I also warned about brain fog/memory issues associated with this medication when half lives accumulate and advised patient to skip a dose if she experiences this symptoms. * Geodon to 40 mg po BID with food to help with lability/mood control . This may also be beneficial off-label for anxiety. ~AIMS completed on 04/11/18 and then again 11/14/18. Patient scored zero on all movement scales. * Lexapro 20 mg po daily for depression and anxiety * Sonata 20 mg po HS for insomnia 11/14/18 09:49 (3) Suicidal ideation Status: Acute Interventions: * group, milieu and supportive tx * SW consultation for discharge plan and social issues * valium 5 mg po q8 for anxiety * I have reviewed indications, side effects and risks of dependency and tolerance with patient on multiple occasions. I also reviewed risks of respiratory depression and with overdose or when taken concurrently with other benzos, opiates, alcohol or sedatives. I also warned about brain fog/me moses issues associated with this medication when half lives accumulate and advised patient to skip a dose if she experiences this symptoms. * Geodon to 40 mg po BID with food to help with lability/mood control . This may also be beneficial off-label for anxiety. ~AIMS completed on 04/11/18 and then again 11/14/18. Patient scored zero on all movement scales. * Lexapro 20 mg po daily for depression and anxiety * Sonata 20 mg po HS for insomnia 11/14/18 09:49 <Laura Clemente - Last Filed: 11/17/18 08:10> Family Contact Family involvement: Famliy/SO not involved <Cyn Kathleen - Last Filed: 11/17/18 08:42>
--- NOTE | 2018-11-14 06:57 | CP.PCM.CON ---
<Elisa Beltran - Last Filed: 11/14/18 16:13> History of Present Illness - History of Present Illness History of Present Illness: Pgy3 Medicine Consult note for Dr. Oh 53 year old female with PMHx of anxiety, depression, epilepsy, benzodiazepine addiction, and Crohn's disease who presented to the ED with complaints of anxiety. Patient states that she is currently having a difficult time at home due to her grandmother being admitted to hospice. She claims that she "can't handle " and wanted to come to the hospital to get away from the situation. Patient was seen and examined at bedside this AM. She denied acute complaints of fever, chills, headache, dizziness, chest pain, palpitations, SOB, cough, abdominal pain, nausea, vomiting, bowel/bladder complaints, pain/swelling in legs bilaterally. Patient did admit to anxiety but denied any suicidal/homicidal ideations and visual/auditory hallucinations. Pmhx: Chron's disease, gastritis, epilepsy, depression, anxiety, migraines, chronic knee pain SxH: vagotomy, cholecystectomy, R ankle tendon repair, R knee meniscus repair, L arthroscopic knee replacement FamH: mom- heart dz, DM, dad- cancer () SocH: former smoker, 5-6 cigarettes/day x15 yrs denies etoh or drug use. On disability for crohns disease. Mother of two children. Allergies: PCN - hives. Naprosyn - nausea Meds: oxycodone, keppra, lexapro, fioricet, klonopin, medication for crohn's disease (name unknown to patient) PMD: Dr. Lacey Psych: Dr. Grace Pharmacy: [facility] Review of Systems - Review of Systems All systems: reviewed and no additional remarkable complaints except Review of Systems: as per HPI Past Patient History - Infectious Disease Hx of Infectious Diseases: None - Tetanus Immunizations Tetanus Immunization: Unknown - Past Medical History & Family History Past Medical History?: Yes - Past Social History Smoking Status: Current Some Days Smoker - CARDIAC Hx Cardiac Disorders: Yes Hx Hypertension: Yes - PULMONARY Hx Respiratory Disorders: No - NEUROLOGICAL Hx Neurological Disorder: Yes Hx Migraine: Yes Hx Seizures: Yes Other/Comment: Hx Cerebral Contusion - HEENT Hx HEENT Problems: No - RENAL Hx Chronic Kidney Disease: No - ENDOCRINE/METABOLIC Hx Endocrine Disorders: No - HEMATOLOGICAL/ONCOLOGICAL Hx Blood Disorders: No - INTEGUMENTARY Hx Dermatological Problems: No - MUSCULOSKELETAL/RHEUMATOLOGICAL Hx Musculoskeletal Disorders: Yes Hx Arthritis: Yes Hx Falls: Yes Hx Fractures: Yes (ankle and knee) - GASTROINTESTINAL Hx Gastrointestinal Disorders: Yes Hx Crohn's Disease: Yes Hx Diverticulitis: Yes Hx Pancreatitis: Yes Other/Comment: Hx gastroparesis. Hx Volvulus. Hx Ischemic Enteritis - GENITOURINARY/GYNECOLOGICAL Hx Genitourinary Disorders: Yes Other/Comment: Hx endometriosis - PSYCHIATRIC Hx Psychophysiologic Disorder: Yes Hx Anxiety: Yes Hx Bipolar Disorder: Yes Hx Depression: Yes Hx Post Traumatic Stress Disorder: Yes Hx Substance Use: Yes (Hx Opiod overdose) - SURGICAL HISTORY Other/Comment: L knee surgery jul 21, 2017 - ANESTHESIA Hx Anesthesia: Yes Hx Anesthesia Reactions: No Hx Malignant Hyperthermia: No Meds Allergies/Adverse Reactions: Allergies Allergy/AdvReac Type Severity Reaction Status Date / Time Penicillins Allergy Intermediate HIVES Verified 11/14/18 06:21 - Medications Medications: Current Medications Diphenhydramine HCl (Benadryl) 25 mg PO Q6 PRN PRN Reason: Allergy symptoms Haloperidol (Haldol) 5 mg PO Q6 PRN; Protocol PRN Reason: Psychosis Last Admin: 11/13/18 22:26 Dose: 5 mg Lorazepam (Ativan) 2 mg PO Q6 PRN; Protocol PRN Reason: Anxiety Last Admin: 11/14/18 00:09 Dose: 2 mg Zaleplon (Sonata) 5 mg PO HS PRN PRN Reason: Insomnia Last Admin: 11/13/18 22:26 Dose: 5 mg Physical Exam - Constitutional Appears: Non-toxic, No Acute Distress, Confused - Head Exam Head Exam: ATRAUMATIC, NORMAL INSPECTION, NORMOCEPHALIC - Eye Exam Eye Exam: EOMI, Normal appearance. absent: Conjunctival injection, Scleral icterus - ENT Exam ENT Exam: Mucous Membranes Dry - Neck Exam Neck exam: Positive for: Full Rom, Normal Inspection - Respiratory Exam Respiratory Exam: Clear to Auscultation Bilateral, NORMAL BREATHING PATTERN. absent: Accessory Muscle Use, Rales, Rhonchi, Wheezes, Respiratory Distress - Cardiovascular Exam Cardiovascular Exam: Tachycardia, +S1, +S2 - GI/Abdominal Exam GI & Abdominal Exam: Normal Bowel Sounds, Soft. absent: Firm, Tenderness - Back Exam Back exam: NORMAL INSPECTION. absent: rash noted, tenderness - Neurological Exam Neurological exam: Alert, CN II-XII Intact, Oriented x3 - Psychiatric Exam Psychiatric exam: Anxious - Skin Skin Exam: Dry, Intact, Normal Color, Warm Results - Vital Signs Recent Vital Signs: Last Vital Signs Temp 98 F 11/13/18 21:28 Pulse 89 11/13/18 21:28 Resp 19 11/14/18 04:25 BP 120/87 11/13/18 21:28 Pulse Ox 100 11/13/18 21:28 - Labs Result Diagrams: 11/13/18 18:27 11/13/18 18:27 Labs: Laboratory Results - last 24 hr 11/13/18 11/13/18 11/13/18 18:27 18:27 18:27 WBC 7.0 D RBC 4.05 Hgb 10.4 L Hct 33.3 L MCV 82.2 MCH 25.7 MCHC 31.2 RDW 15.9 H Plt Count 237 MPV 10.1 Neut % (Auto) 51.6 Lymph % (Auto) 37.1 H Calvert % (Auto) 6.1 H Eos % (Auto) 4.9 Baso % (Auto) 0.3 Lymph # (Auto) 2.6 Calvert # (Auto) 0.4 Eos # (Auto) 0.3 Baso # (Auto) 0.02 Absolute Neuts (auto) 3.61 Sodium 141 Potassium 4.7 Chloride 108 H Carbon Dioxide 25 Anion Gap 14 BUN 24 H Creatinine 1.1 Est GFR ( Amer) > 60 Est GFR (Non-Af Amer) 52 Random Glucose 101 Calcium 9.4 Magnesium 1.5 L Total Bilirubin 0.2 AST 34 ALT 73 H Alkaline Phosphatase 141 H D Total Protein 7.0 Albumin 4.0 Globulin 3.0 Albumin/Globulin Ratio 1.3 Urine Color Light yellow Urine Appearance Clear Urine pH 6.0 Ur Specific House >= 1.030 Urine Protein Negative Urine Glucose (UA) Negative Urine Ketones Negative Urine Blood Trace-intact H Urine Nitrate Negative Urine Bilirubin Negative Urine Urobilinogen 0.2 Ur Leukocyte Esterase Moderate H Urine RBC 0 - 2 Urine WBC 2 - 5 Ur Epithelial Cells 1 - 3 Hyaline Casts 0 - 2 Salicylates Urine Opiates Screen Urine Methadone Screen Acetaminophen Ur Barbiturates Screen Ur Phencyclidine Scrn Ur Amphetamines Screen U Benzodiazepines Scrn U Oth Cocaine Metabols U Cannabinoids Screen Alcohol, Quantitative 11/13/18 11/13/18 11/13/18 18:27 18:27 18:27 WBC RBC Hgb Hct MCV MCH MCHC RDW Plt Count MPV Neut % (Auto) Lymph % (Auto) Calvert % (Auto) Eos % (Auto) Baso % (Auto) Lymph # (Auto) Calvert # (Auto) Eos # (Auto) Baso # (Auto) Absolute Neuts (auto) Sodium Potassium Chloride Carbon Dioxide Anion Gap BUN Creatinine Est GFR ( Amer) Est GFR (Non-Af Amer) Random Glucose Calcium Magnesium Total Bilirubin AST ALT Alkaline Phosphatase Total Protein Albumin Globulin Albumin/Globulin Ratio Urine Color Urine Appearance Urine pH Ur Specific House Urine Protein Urine Glucose (UA) Urine Ketones Urine Blood Urine Nitrate Urine Bilirubin Urine Urobilinogen Ur Leukocyte Esterase Urine RBC Urine WBC Ur Epithelial Cells Hyaline Casts Salicylates < 1 L Urine Opiates Screen Negative Urine Methadone Screen Negative Acetaminophen < 10.0 L Ur Barbiturates Screen Negative Ur Phencyclidine Scrn Negative Ur Amphetamines Screen Negative U Benzodiazepines Scrn Positive H U Oth Cocaine Metabols Negative U Cannabinoids Screen Negative Alcohol, Quantitative < 10 Assessment & Plan - Assessment and Plan (Free Text) Assessment: 53 year old female with PMHx of anxiety, depression, epilepsy, benzodiazepine addiction, and Crohn's disease who presented to the ED with complaints of anxiety. Medicine consulted for medical management. 1. Anxiety 2. Depression 3. Crohn's disease 4. Chronic pain 5. Asymptomatic UTI Plan: Patient's blood work, imaging, and vitals noted in chart. Will continue PO pain medications that patient is prescribed to take at home. Will also continue pat ient's Keppra. Patient's U/A showed +leuk esterase; will f/u urine culture. Pateint currently asymptomatic so no need to treat. Further management as per psych team. Medicine will sign off at this time. Please reconsult as needed. Discussed with Dr. Althea Beltran PGY3 <Vikram Oh - Last Filed: 11/16/18 17:28> Meds - Medications Medications: Current Medications Acetaminophen/Butalbital/Caffeine (Fioricet) 1 tab PO TID PRN PRN Reason: Migraine headache Diazepam (Valium) 5 mg PO Q8 RADHA; Protocol Last Admin: 11/16/18 14:48 Dose: 5 mg Diphenhydramine HCl (Benadryl) 25 mg PO Q6 PRN PRN Reason: Allergy symptoms Escitalopram Oxalate (Lexapro) 20 mg PO HS [facility] Last Admin: 11/15/18 21:09 Dose: 20 mg Haloperidol (Haldol) 5 mg PO Q6 PRN; Protocol PRN Reason: Psychosis Last Admin: 11/13/18 22:26 Dose: 5 mg Levetiracetam (Keppra) 500 mg PO BID [facility] Last Admin: 11/16/18 15:57 Dose: 500 mg Oxycodone HCl (Oxycodone Immediate Release Tab) 10 mg PO Q6H PRN PRN Reason: Pain, moderate (4-7) Last Admin: 11/16/18 15:56 Dose: 10 mg Zaleplon (Sonata) 20 mg PO [facility] Last Admin: 11/15/18 21:09 Dose: 20 mg Ziprasidone (Geodon Cap) 60 mg PO BID [facility]; Protocol Last Admin: 11/16/18 15:54 Dose: 60 mg Results - Vital Signs Recent Vital Signs: Last Vital Signs Temp 97.8 F 11/16/18 07:07 Pulse 82 11/16/18 16:00 Resp 16 11/16/18 07:07 BP 97/65 L 11/16/18 16:00 Pulse Ox 100 11/13/18 21:28 - Labs Result Diagrams: 11/13/18 18:27 11/13/18 18:27 Attending/Attestation - Attestation I have personally seen and examined this patient.: Yes I have fully participated in the care of the patient.: Yes I have reviewed all pertinent clinical information: Yes Notes (Text): 11/16/18 17:24 Medical record note made by the resident after discussion with my direction and input after the patient was personally seen and examined by me. I have reviewed the chart and agree that the record accurately reflects by personal performance of the history, physical exam, data review, and medical decision-making, in the course for the patient. I have also personally directed the plan of care. 53 year old female with PMHx of anxiety, depression, drug abuse and Crohn's disease ? who presented to the ED with complaints of anxiety. Patient is medically stable at her base line. She does not has any Nausea/Vomiting or diarrhea.She is tolerating food. She is afebrile.There is no Urinary symptoms. There is no active medical issue at this time.We will sign off. Please call us back if any question
[2018-11-14 08:40] LABS: GLUCOSE,FASTING 124 mg/dL (65-110); HDL CHOLESTEROL 57 mg/dL (29-60)
[2018-11-14 08:50] LABS: LDL CHOLESTEROL 74 mg/dL (0-129)
--- NOTE | 2018-11-14 09:36 | CARD ---
APPROVED REPORT Date of service: 11/13/2018 EKG Measurement Heart [id number] <Conclusion> Sinus tachycardia Otherwise normal ECG
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
--- NOTE | 2018-11-14 11:20 | RAD ---
Date of service: 11/13/2018 HISTORY: chest pain, cough COMPARISON: 08/20/2018 TECHNIQUE: 1 view obtained. FINDINGS: LUNGS: No active pulmonary disease. PLEURA: No significant pleural effusion identified, no pneumothorax apparent. CARDIOVASCULAR: No aortic atherosclerotic calcification present. Normal cardiac size. No pulmonary vascular congestion. OSSEOUS STRUCTURES: No significant abnormalities. VISUALIZED UPPER ABDOMEN: Normal. OTHER FINDINGS: None. IMPRESSION: No active disease.
[2018-11-14] MEDS: oxyCODONE 10 mg Immediate Release Tab PO PRN ×2 (14:25→20:13)
[2018-11-14] MEDS ORDERED: Apap-Butalbital-Caffeine 325-50-40mg Tab PO PRN (16:20)
[2018-11-15] MEDS: oxyCODONE 10 mg Immediate Release Tab PO PRN ×4 (01:56→20:05)
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
[2018-11-16] MEDS: oxyCODONE 10 mg Immediate Release Tab PO PRN ×4 (03:13→22:07)
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
[2018-11-17] MEDS: oxyCODONE 10 mg Immediate Release Tab PO PRN ×4 (05:32→23:29)
--- NOTE | 2018-11-17 15:34 | PCM.PYCHPN ---
Psychiatric Progress Note - Psychiatric Progress Note Patient seen today, length of contact: 30min Patient Chief Complaint: "I have difficulties to fall asleep and stay asleep, it is huge problem for me" Problems Identified/Issues Discussed: Symptoms, medications, coping strategies. Medical Problems: See HPI Diagnostic Results: 11/13/18 18:27 11/13/18 18:27 Lab Results 11/14/18 08:00: RPR Nonreactive 11/14/18 08:00: TSH 3rd Generation 0.66 11/14/18 08:00: Fasting Glucose 124 H, Triglycerides 59, Cholesterol 148, LDL Cholesterol Direct 74, HDL Cholesterol 57 11/13/18 18:27: Urine Opiates Screen Negative, Urine Methadone Screen Negative, Ur Barbiturates Screen Negative, Ur Phencyclidine Scrn Negative, Ur Amphetamines Screen Negative, U Benzodiazepines Scrn Positive H, U Oth Cocaine Metabols Negative, U Cannabinoids Screen Negative 11/13/18 18:27: Alcohol, Quantitative < 10 11/13/18 18:27: Salicylates < 1 L, Acetaminophen < 10.0 L 11/13/18 18:27: Sodium 141, Potassium 4.7, Chloride 108 H, Carbon Dioxide 25, Anion Gap 14, BUN 24 H, Creatinine 1.1, Est GFR ( Amer) > 60, Est GFR (Non-Af Amer) 52, Random Glucose 101, Calcium 9.4, Magnesium 1.5 L, Total Bilirubin 0.2, AST 34, ALT 73 H, Alkaline Phosphatase 141 H D, Total Protein 7.0, Albumin 4.0, Globulin 3.0, Albumin/Globulin Ratio 1.3 11/13/18 18:27: Urine Color Light yellow, Urine Appearance Clear, Urine pH 6.0, Ur Specific [place] >= 1.030, Urine Protein Negative, Urine Glucose (UA) Negative, Urine Ketones Negative, Urine Blood Trace-intact H, Urine Nitrate Negative, Urine Bilirubin Negative, Urine Urobilinogen 0.2, Ur Leukocyte Esterase Moderate H, Urine RBC 0 - 2, Urine WBC 2 - 5, Ur Epithelial Cells 1 - 3, Hyaline Casts 0 - 2 11/13/18 18:27: WBC 7.0 D, RBC 4.05, Hgb 10.4 L, Hct 33.3 L, MCV 82.2, MCH 25.7, MCHC 31.2, RDW 15.9 H, Plt Count 237, MPV 10.1, Neut % (Auto) 51.6, Lymph % (Auto) 37.1 H, [place] % (Auto) 6.1 H, Eos % (Auto) 4.9, Baso % (Auto) 0.3, Lymph # (Auto) 2.6, [place] # (Auto) 0.4, Eos # (Auto) 0.3, Baso # (Auto) 0.02, Absolute Neuts (auto) 3.61 Vital Signs Temp Pulse Resp BP Pulse Ox 11/16/18 07:07 97.8 F 89 16 125/79 11/15/18 16:00 88 96/65 L 11/15/18 06:40 97.8 F 87 16 112/72 11/14/18 20:51 93 H 103/69 11/14/18 06:57 97.5 F L 90 18 115/81 11/14/18 04:25 19 11/13/18 21:28 98 F 89 18 120/87 100 11/13/18 19:55 98.1 F 99 H 18 125/98 H 100 11/13/18 17:18 98.1 F 109 H 18 149/91 H 98 DSM 5 Symptoms Update: Patient was seen and examined today at the day treatment area, patient presented with flat affect, appears to be depressed, patient expressed her concerns about insomnia, patient reported that she has difficulty falling asleep and staying asleep, patient is willing to try trazodone as an adjunct for Sonata, as well as her major depressive disorder. Patient reported that he feels hopeless, helpless, worthless at times, patient reported that her intake at [facility] is on Wednesday next week. Patient did not feel comfortable to be discharged today, reported that she is not ready to face her family issues. So far patient compliant with the treatment, does not have agitation, no aggression, at times medication seeking behavior. So far patient tolerates medications well, no side effects observed or reported, aims 0, no EPS. Diagnostic Results: Major Depression, Severe with psychotic features ADIS Benzo & opiate addiction by history SIMD Borderline personality disorder, Medication Change: Yes (Trazodone 50 mg at the nighttime) Medical Record Reviewed: Yes Consults ordered or reviewed: Medical consult appreciated. Mental Status Examination - Cognitive Function Orientation: Person, Place, Situation Memory: Intact Attention: WNL Concentration: Poor Association: WNL Fund of Knowledge: Poor - Mood Mood: Depressed ("I feel not ready to go home, I am still depressed.."), Anxious - Affect Affect: Constricted - Formal Thought Process Formal Thought Process: No Impairment, Hallucinations (report ah of voices in the ER ) - Suicidal Ideation Suicidal Ideation: No - Homicidal Ideation Homicidal Ideation: No Goal/Treatment Plan - Goal/Treatment Plan Need for Continued Stay: Remain at risks for inpatient hospitalization, Severe depression anxiety, Discharge may exacerbated symptoms, Severe functional impairment Progress Toward Problem(s) and Goals/Treatment Plan: Milieu/structure/supportive therapy SW consultation for discharge plan and social issues Med management Milligrams p.o. every 8 hours scheduled Lexapro 20 mg at the nighttime for depression anxiety Keppra 500 mg twice a day oxyCodone 10 mg every 6 hours as needed for pain Trazodone 50 mg at the nighttime for depression Sonata 20 mg at nighttime for insomnia Geodon 60 mg twice a day for mood stabilization and psychosis Family involvement Follow up on labs Will monitor closely Pt was educated about risk/benefits and alternatives of medications, coping strategies (safety plan, suicide prevention), relapse prevention, importance of follow up with psychiatrist and therapist, stay away from drugs/alcohol/smoking Estimated Date of D/C: 11/18/18
[2018-11-18] MEDS: oxyCODONE 10 mg Immediate Release Tab PO PRN ×2 (06:27→12:18)
[2018-11-18 06:39] VITALS: BP 114/79; PULSE 118; RESP 18; TEMP 97.2
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
== END 2018-11-18 13:49 | disposition home or self-care (01) | DRG 430 ==
LOC: ED 17:16 → ERH 20:57 → PSYC 22:02
PROVIDERS: ADMIT Psychologist; ATTEND Psychologist
DX: F32.3 Major depressive disorder, single episode, severe with psychotic features (principal); F06.30 Mood disorder due to known physiological condition, unspecified; N39.0 Urinary tract infection, site not specified; F06.4 Anxiety disorder due to known physiological condition; F13.14 Sedative, hypnotic or anxiolytic abuse with sedative, hypnotic or anxiolytic-induced mood disorder; F60.3 Borderline personality disorder; I10 Essential (primary) hypertension; F43.10 Post-traumatic stress disorder, unspecified; F41.1 Generalized anxiety disorder; G40.909 Epilepsy, unspecified, not intractable, without status epilepticus; K50.90 Crohn's disease, unspecified, without complications; G89.29 Other chronic pain; Z91.19 Patient's noncompliance with other medical treatment and regimen; Z87.891 Personal history of nicotine dependence; Z76.5 Malingerer [conscious simulation]

== ENCOUNTER 2018-12-03 15:34 | Emergency (ER) | payer MEDICAID ==
[2018-12-03 15:34] VITALS: BMI 20.1
[2018-12-03 15:58] VITALS: RESP 16; TEMP 98.3
--- NOTE | 2018-12-03 15:58 | ED PDOC ---
Arrival/HPI - General Chief Complaint: Dizziness/Lightheaded Time Seen by Provider: 12/03/18 15:37 Historian: Patient - History of Present Illness Narrative History of Present Illness (Text): 12/03/18 15:56 53 year old female, with a past medical history of anxiety, chrohn's diseases, epilepsy, migraines, and depression, who presents to the emergency department complaining of dizziness for the past 4 days. Patient endorses vomiting for past 2 days, but denies vomiting today. Patient reports she has not eaten in 4 days and states she fell 45 minutes prior to arrival. She endorses slight LOC. Patient reports she could not get up and states she called her daughter. She endorses upper abdominal pain. Patient denies fever, chills, shortness of breath, chest pain, or any other somatic complaints. Patient denies dizziness presently. PMD: Dr. Guillen Time/Duration: < week Symptom Onset: Gradual Symptom Course: Unchanged Activities at Onset: Light Context: Home Past Medical History - Provider Review Nursing Documentation Reviewed: Yes - Past History Past History: Non-Contributing - Infectious Disease Hx of Infectious Diseases: None - Tetanus Immunization Tetanus Immunization: Unknown - Past Medical History Past Medical History: No Previous - Cardiac Hx Cardiac Disorders: Yes Hx Hypertension: Yes - Pulmonary Hx Respiratory Disorders: No - Neurological Hx Neurological Disorder: Yes Hx Migraine: Yes Hx Seizures: Yes Other/Comment: Hx Cerebral Contusion - HEENT Hx HEENT Disorder: No - Renal Hx Renal Disorder: No - Endocrine/Metabolic Hx Endocrine Disorders: No - Hematological/Oncological Hx Blood Disorders: No - Integumentary Hx Dermatological Disorder: No - Musculoskeletal/Rheumatological Hx Musculoskeletal Disorders: Yes Hx Arthritis: Yes Hx Falls: Yes Hx Fractures: Yes (ankle and knee) - Gastrointestinal Hx Gastrointestinal Disorders: Yes Hx Crohn's Disease: Yes Hx Diverticulitis: Yes Hx Pancreatitis: Yes Other/Comment: Hx gastroparesis. Hx Volvulus. Hx Ischemic Enteritis - Genitourinary/Gynecological Hx Genitourinary Disorders: Yes Other/Comment: Hx endometriosis - Psychiatric Hx Psychophysiologic Disorder: Yes Hx Anxiety: Yes Hx Bipolar Disorder: Yes Hx Depression: Yes Hx Post Traumatic Stress Disorder: Yes Hx Substance Use: Yes (Hx Opiod overdose) - Surgical History Other/Comment: L knee surgery jul 21, 2017 - Anesthesia Hx Anesthesia: Yes Hx Anesthesia Reactions: No Hx Malignant Hyperthermia: No - Suicidal Assessment Feels Threatened In Home Enviroment: No Family/Social History - Physician Review Nursing Documentation Reviewed: Yes Family/Social History: Unknown Family HX Smoking Status: Current Some Days Smoker Hx Alcohol Use: No Hx Substance Use: Yes (Hx Opiod overdose) Hx Substance Use Treatment: No Allergies/Home Meds Allergies/Adverse Reactions: Allergies Penicillins Allergy (Intermediate, Verified 11/14/18 06:21) HIVES Home Medications: Home Meds Medication Instructions Recorded Confirmed Albuterol HFA [Ventolin HFA 90 1 puff INH QID PRN 10/20/18 11/13/18 mcg/actuation (8 g)] Review of Systems - Physician Review All systems were reviewed & negative as marked: Yes - Review of Systems Constitutional: absent: Fevers Respiratory: absent: SOB, Cough Cardiovascular: absent: Chest Pain Gastrointestinal: Abdominal Pain, Vomiting. absent: Nausea Musculoskeletal: absent: Back Pain, Neck Pain Neurological: Dizziness. absent: Headache Physical Exam Vital Signs Reviewed: Yes Temperature: Afebrile Blood Pressure: Normal Pulse: Regular Respiratory Rate: Normal Appearance: Positive for: Well-Appearing, Non-Toxic, Comfortable Pain Distress: None Mental Status: Positive for: Alert and Oriented X 3 Medical Decision Making ED Course and Treatment: 12/03/18 15:55 Impression: 53 year old female presents to the emergency department complaining of dizziness x 4 days. Differential Diagnosis included but are not limited to: Plan: -- CT Head -- Labs -- Antivert -- Reglan -- Iv fluids -- Reassess and disposition Prior Visits: Notes and results from previous visits were reviewed. Progress Notes: - EKG Interpretation EKG Interpretation (Text): 12/03/18 16:42 EKG reviewed, shows; Sinus bradycardia at 96 bpm, no ST abnormalities, no QT prolongation. Interpreted by ED Physician: Yes - Scribe Statement The provider has reviewed the documentation as recorded by the Jose Antonio Alan All medical record entries made by the Virgieibcal were at my direction and personally dictated by me. I have reviewed the chart and agree that the record accurately reflects my personal performance of the history, physical exam, medical decision making, and the department course for this patient. I have also personally directed, reviewed, and agree with the discharge instructions and disposition. Disposition/Present on Arrival - Present on Arrival Any Indicators Present on Arrival: No History of DVT/PE: No History of Uncontrolled Diabetes: No Urinary Catheter: No History of Decub. Ulcer: No History Surgical Site Infection Following: None - Disposition Have Diagnosis and Disposition been Completed?: Yes Diagnosis: Dizziness Disposition: HOME/ ROUTINE Disposition Time: 17:50 Patient Plan: Discharge Condition: IMPROVED Discharge Instructions (ExitCare): Vertigo (a Type of Dizziness) (DC), Dizziness, Nonvertigo, (DC) Print Language: [place] Additional Instructions: All medical record entries made by the Scribe were at my direction and personally dictated by me. I have reviewed the chart and agree that the record accurately reflects my personal performance of the history, physical exam, medical decision making, and the department course for this patient. I have also personally directed, reviewed, and agree with the discharge instructions and disposition. Please follow up with your PCP Referrals: Yasmine Heck MD [Medical Doctor] - [place] up [place] [facility] [place] [facility] [place] - Follow up with primary Forms: [employer] ([place])
[2018-12-03] MEDS ORDERED: Sodium Chloride 0.9% 1,000 ML IV STA (16:15)
[2018-12-03 16:31] LABS: BASO # 0.02 K/mm3 (0.0-2.0); BASO % 0.3 % (0.0-3.0); EOS # 0.2 (0.0-0.7); EOS % 2.1 % (1.5-5.0); HEMOGLOBIN 10.9 g/dL (12.0-16.0); LYMPH # 3.5 (1.2-3.4); LYMPH % 50.1 % (22.0-35.0); MEAN CELL VOLUME 79.2 fl (80.0-105.0); MEAN CORPUSCULAR HEMOGLOBIN 24.9 pg (25.0-35.0); MEAN CORPUSCULAR HGB CONC 31.5 g/dl (31.0-37.0); MEAN PLATELET VOLUME 9.9 fl (7.0-11.0); MONO # 0.4 (0.1-0.6); MONO % 5.8 % (1.0-6.0); RBC 4.37 10^6/uL (3.5-6.1); RED CELL DISTRIBUTION WIDTH 14.4 % (11.5-14.5); WHITE BLOOD COUNT 7.1 10^3/uL (4.5-11.0)
[2018-12-03 18:10] LABS: TROPONIN I < 0.01 ng/mL
[2018-12-03 18:56] LABS: ALB/GLOB RATIO 1.5 (1.1-1.8); ALBUMIN 4.2 g/dL (3.0-4.8); ALT/SGPT 30 U/L (7-56); AST/SGOT 28 U/L (14-36); BLOOD UREA NITROGEN 17 mg/dL (7-21); CALCIUM 9.2 mg/dL (8.4-10.5); GFR NON-AFRICAN AMERICAN 47; LIPASE 41 U/L (23-300)
[2018-12-03 19:12] VITALS: BP 95/64; PULSE 79; O2SAT 99
--- NOTE | 2018-12-04 08:35 | CT ---
Date of service: 12/03/2018 PROCEDURE: CT HEAD WITHOUT CONTRAST. HISTORY: headache COMPARISON: 06/12/2018 CT TECHNIQUE: Axial computed tomography images were obtained through the head/brain without intravenous contrast. Radiation dose: Total exam DLP = 782.66 mGy-cm. This CT exam was performed using one or more of the following dose reduction techniques: Automated exposure control, adjustment of the mA and/or kV according to patient size, and/or use of iterative reconstruction technique. FINDINGS: HEMORRHAGE: No intracranial hemorrhage. BRAIN: No mass effect or edema. No acute infarct or hemorrhage VENTRICLES: Unremarkable. No hydrocephalus. CALVARIUM: Unremarkable. PARANASAL SINUSES: Unremarkable as visualized. No significant inflammatory changes. MASTOID AIR CELLS: Unremarkable as visualized. No inflammatory changes. OTHER FINDINGS: The report concurs with the preliminary [facility] report IMPRESSION: No acute intracranial findings
--- NOTE | 2018-12-04 13:28 | CARD ---
APPROVED REPORT Date of service: 12/03/2018 EKG Measurement Heart [id number] <Conclusion> Sinus bradycardia Otherwise normal ECG
== END 2018-12-03 19:17 | disposition home or self-care (01) ==
LOC: ED 15:34
DX: R42 Dizziness and giddiness (principal); G40.909 Epilepsy, unspecified, not intractable, without status epilepticus; I10 Essential (primary) hypertension
CPT/HCPCS: 70450; 80053; 83690; 83735; 84484; 85025; 93005; 96361; 96374; 99285; J2765; J7030